=== PATIENT | female | born 1950 | race Caucasian/White ===

== ENCOUNTER → 2017-08-31 15:30 | Outpatient (CLI) | payer MEDICARE, OTHER, SELFPAY ==
[2017-08-31 16:38] LABS: Absolute Lymphocyte Count 1.55 X10^3/ul (0.83-4.51); Absolute Neutrophil Count 4.6 X10^3/uL (2.0-7.7); Basophil# 0.02 X10^3/uL; Basophil% 0.3 % (0-1); Eosinophil# 0.14 X10^3/uL; Hematocrit 41.2 % (37-47); Hemoglobin 13.6 g/dl (12.0-15.0); Lymphocyte # 1.55 X10^3/ul (4.0); Lymphocyte % 22.6 % (19-41); Mean Corpuscular Hgb 30.7 pg (27.0-32.0); Mean Platelet Vol. 10.3 fl (6.2-12.0); Monocyte# 0.56 X10^3/uL; Monocyte% 8.2 % (0-10); Neutrophil # 4.57 X10^3/uL (2.7-7.7); Neutrophil % 66.5 % (47-70); Platelet Count 213 K/mm3 (150-450); RBC Distribution Width CV 13.3 % (11.6-14.6); RBC Distribution Width SD 44.1 fl (35.1-43.9); Red Blood Count 4.43 M/mm3 (4.2-5.4); White Blood Count 6.9 K/mm3 (4.4-11.0)
[2017-08-31 16:41] LABS: POSITIVE COUNT NO; POSITIVE DIFFERENTIAL NO; POSITIVE MORPHOLOGY NO
[2017-08-31 17:06] LABS: Anion Gap 8 (5-15); BUN 20 mg/dL (7-18); BUN/Creat Ratio 21.7 RATIO (10-20); Calcium,Total 8.7 mg/dL (8.5-10.1); Chloride 107 mmol/L (98-107); Creatinine, Serum 0.92 mg/dL (0.55-1.02); EST Glomerular Filtration Rate 65 mL/min (>60); Est Glom Filt Rate - Afr Amer 78 mL/min (>60); Glucose 150 mg/dL (74-106); Potassium 4.3 mmol/L (3.5-5.1); Sodium Level 141 mmol/L (136-145)
== END ==
PROVIDERS: Family Provider Family Medicine; PCP Family Medicine; Visit Provider Internal Medicine Cardiovascular Disease
DX: I25.119 Atherosclerotic heart disease of native coronary artery with unspecified angina pectoris (principal)
CPT/HCPCS: 36415; 80048; 84484; 85025

== ENCOUNTER → 2017-09-04 10:13 | Outpatient (CLI) | payer MEDICARE, OTHER, SELFPAY ==
[2017-09-04 12:06] LABS: Absolute Lymphocyte Count 1.23 X10^3/ul (0.83-4.51); Absolute Neutrophil Count 5.2 X10^3/uL (2.0-7.7); Basophil# 0.03 X10^3/uL; Basophil% 0.4 % (0-1); Eosinophil# 0.17 X10^3/uL; Eosinophils% 2.3 % (0-5); Hematocrit 42.8 % (37-47); Hemoglobin 14.4 g/dl (12.0-15.0); Lymphocyte # 1.23 X10^3/ul (4.0); Mean Corp Hgb Conc 33.6 g/gl (32-36); Mean Corpuscular Hgb 30.9 pg (27.0-32.0); Mean Corpuscular Volume 91.8 fL (81-99); Mean Platelet Vol. 10.4 fl (6.2-12.0); Monocyte# 0.61 X10^3/uL; Monocyte% 8.4 % (0-10); Neutrophil % 71.8 % (47-70); Platelet Count 187 K/mm3 (150-450); RBC Distribution Width CV 13.5 % (11.6-14.6); RBC Distribution Width SD 44.5 fl (35.1-43.9); Red Blood Count 4.66 M/mm3 (4.2-5.4); White Blood Count 7.3 K/mm3 (4.4-11.0)
[2017-09-04 12:09] LABS: POSITIVE COUNT NO; POSITIVE DIFFERENTIAL NO; POSITIVE MORPHOLOGY NO
[2017-09-04 12:21] LABS: Hemoglobin A1c 7.1 % (4.2-6.3)
[2017-09-04 12:40] LABS: ALB/GLOB Ratio 1.3 RATIO (0.9-2.4); AST(SGOT) 24 U/L (15-37); Alanine Aminotransfer ALT/SGPT 40 U/L (13-56); Alkaline Phosphatase 59 U/L (45-117); Anion Gap 6 (5-15); BUN 16 mg/dL (7-18); BUN/Creat Ratio 19.9 RATIO (10-20); Chloride 107 mmol/L (98-107); Cholesterol 161 mg/dL (200); Creatinine, Serum 0.81 mg/dL (0.55-1.02); EST Glomerular Filtration Rate 75 mL/min (>60); Est Glom Filt Rate - Afr Amer 91 mL/min (>60); Glucose 145 mg/dL (74-106); High Density Lipoprotein 41 mg/dL; Potassium 4.5 mmol/L (3.5-5.1); Sodium Level 141 mmol/L (136-145); Thyroid Stim Hormone (TSH) 1.44 uIU/mL (0.358-3.74); Triglycerides 288 mg/dL; Very Low Density Lipoprotein 58 mg/dL (5-40)
== END ==
PROVIDERS: Family Provider Family Medicine; PCP Family Medicine; Visit Provider Family Medicine
DX: E11.9 Type 2 diabetes mellitus without complications (principal); I10 Essential (primary) hypertension; E03.9 Hypothyroidism, unspecified; E78.00 Pure hypercholesterolemia, unspecified
CPT/HCPCS: 36415; 80053; 80061; 83036; 84443; 85025

== ENCOUNTER → 2017-09-13 11:56 | Outpatient (CLI) | payer MEDICARE, OTHER, SELFPAY ==
--- NOTE | 2017-09-13 11:59 | NM_ITS ---
CLINICAL: 66-year-old diabetic female with reported history of abdominal bloating. SEMI-SOLID PHASE 99m Tc SULFUR COLLOID GASTRIC EMPTYING STUDY COMPARISON: Previous semisolid phase gastric emptying study report dated 08/16/2010 FINDINGS: The patient was administered 1.1 mCi of 99m Tc sulfur colloid mixed with oatmeal and consumed per os. Image acquisitions in the anterior-posterior projections for a total of 60 minutes. There is prompt visualization of the stomach. There is no gastroesophageal reflux identified. The T1/2 linear fit was calculated to be 43.53 minutes, (Normal: 12-56 minutes) compared to 46.7 minutes defined on the semisolid phase gastric emptying examination dated 08/16/2010. NM/Gastric Emptying Study IMPRESSION: 1. NORMAL 99m Tc sulfur colloid semi-solid phase (oatmeal) gastric emptying imaging examination. A. There is normal and preserved semi-solid phase gastric emptying compared to normal controls with maintained first order kinetics throughout all components of the examination. (Harvey et al, J Nucl Med Tech 38: 186, 2010). B. Overall applying and utilizing normal semisolid gastric emptying parameters on both the current and previous examinations, there is no significant interval change. Electronically Signed: Manuel Jacob DO at 12:13 EST Tel , Service support ,
--- NOTE | 2017-09-13 13:20 | RAD_ITS ---
STUDY: X-RAY CHEST REASON FOR EXAM: Female, 66 years old. Pain TECHNIQUE: Frontal and lateral views of the chest. COMPARISON: September 24, 2015 FINDINGS: Chronic appearing increased interstitial lung markings. There is an elevated left hemidiaphragm. There is no demonstrated pleural abnormality. Normal heart size. Normal mediastinum and minerva. Normal visualized pulmonary arteries. There is atherosclerotic calcification of the aortic arch with tortuosity. There are diffuse degenerative changes of the visualized thoracic spine. There is degenerative osteoarthritis of the bilateral shoulders. There is no demonstrated abnormality of the visualized soft tissue structures of the upper abdomen. RAD/Chest PA and Lateral IMPRESSION: There are no acute findings. Electronically Signed: Fabio Valle MD at 16:56 EST , Service support ,
== END ==
PROVIDERS: Family Provider Family Medicine; PCP Family Medicine; Visit Provider Family Medicine
DX: R10.9 Unspecified abdominal pain (principal); R14.0 Abdominal distension (gaseous); R07.89 Other chest pain
CPT/HCPCS: 71046; 78264; A9541

== ENCOUNTER → 2017-09-21 11:00 | Outpatient (CLI) | payer MEDICARE, OTHER, SELFPAY ==
--- NOTE | 2017-09-21 11:09 | RAD_ITS ---
STUDY: X-RAY - PELVIS AND RIGHT HIP REASON FOR EXAM: Female, 67 years old. Hip pain TECHNIQUE: Radiological exam, hip, unilateral, with pelvis when performed; 2 or 3 views. COMPARISON: December 04, 2013 CT pelvis FINDINGS: There is a non-specific bowel gas pattern. There are multiple calcified phleboliths. There is enthesopathy of the bilateral iliac crest similar to prior study. Normal bilateral superior and inferior pubic rami. Normal pubic symphysis. Normal bilateral ischial tuberosities. There is mild degenerative change of both hip joints. There is stable that are top in bone adjacent to the bilateral greater trochanters. There is degenerative change of the lumbar spine. RAD/Hip 2-3 Views with Pelvis IMPRESSION: Degenerative change of bilateral hip joints with right greater than left, visualized heterotopic bone or prior avulsion injuries adjacent to the greater trochanter on the right side. Electronically Signed: Tg Flynn MD at 11:41 EST Tel , Service support ,
== END ==
PROVIDERS: Family Provider Family Medicine; PCP Family Medicine; Visit Provider Nurse Practitioner Family
DX: M16.0 Bilateral primary osteoarthritis of hip (principal)
CPT/HCPCS: 73502

== ENCOUNTER → 2017-11-13 14:50 | Outpatient (CLI) | payer MEDICARE, OTHER, SELFPAY | PROVIDERS: Family Provider Family Medicine; PCP Family Medicine; Visit Provider Urology | DX: N39.0 Urinary tract infection, site not specified (principal) | CPT/HCPCS: 87086; 87088; 87186 ==

== ENCOUNTER → 2017-12-03 07:55 | Outpatient (CLI) | payer MEDICARE, OTHER, SELFPAY ==
[2017-12-03 10:21] LABS: AST(SGOT) 24 U/L (15-37); Alanine Aminotransfer ALT/SGPT 44 U/L (13-56); Albumin, Serum 4.1 g/dL (3.2-5.0); Alkaline Phosphatase 62 U/L (45-117); Bilirubin, Direct 0.15 mg/dL (0.00-0.30); Cholesterol 133 mg/dL (200); Globulin 2.9 g/dL (2.2-4.2); High Density Lipoprotein 52 mg/dL; Triglycerides 200 mg/dL; Very Low Density Lipoprotein 40 mg/dL (5-40)
== END ==
PROVIDERS: Family Provider Family Medicine; PCP Family Medicine; Visit Provider Physician Assistant Medical
DX: E78.5 Hyperlipidemia, unspecified (principal); Z79.899 Other long term (current) drug therapy
CPT/HCPCS: 36415; 80061; 80076

== ENCOUNTER → 2018-01-21 14:25 | Outpatient (CLI) | payer MEDICARE, OTHER, SELFPAY | PROVIDERS: Family Provider Family Medicine; PCP Family Medicine; Visit Provider Nurse Practitioner Adult Health | DX: N39.0 Urinary tract infection, site not specified (principal) | CPT/HCPCS: 87077; 87086; 87088; 87186 ==

== ENCOUNTER → 2018-02-04 16:53 | Outpatient (CLI) | payer MEDICARE, OTHER, SELFPAY | PROVIDERS: Family Provider Family Medicine; PCP Family Medicine; Visit Provider Urology | DX: N39.0 Urinary tract infection, site not specified (principal) | CPT/HCPCS: 87086 ==

== ENCOUNTER → 2018-03-28 16:06 | Outpatient (CLI) | payer MEDICARE, OTHER, SELFPAY | PROVIDERS: Family Provider Family Medicine; PCP Family Medicine; Visit Provider Family Medicine | DX: G57.62 Lesion of plantar nerve, left lower limb (principal); M19.072 Primary osteoarthritis, left ankle and foot | CPT/HCPCS: 73630 ==

== ENCOUNTER → 2018-04-22 11:46 | Outpatient (CLI) | payer MEDICARE, OTHER, SELFPAY ==
--- NOTE | 2018-04-22 11:48 | RAD_ITS ---
STUDY: X-RAY - RIGHT HAND REASON FOR EXAM: Female, 67 years old. Pain and swelling of the middle finger for 5 days. TECHNIQUE: 3 view(s) of the hand. COMPARISON: None. FINDINGS: Normal radiocarpal articulation. Normal distal radioulnar joint. Normal visualized carpal bones. Normal carpal articulations Normal carpometacarpal articulation of the thumb. Normal second through fifth carpometacarpal joints. Normal metacarpi. There is degenerative arthrosis of the first metacarpophalangeal (MCP) joint. Normal interphalangeal joint of the thumb. Normal proximal and distal phalanges of the thumb. Normal metacarpophalangeal joints of the second through fifth fingers. Normal proximal interphalangeal joints of the second through fifth fingers. There is marked arthrosis of the distal interphalangeal joints most marked at the second and third digits demonstrate bony productivity. Normal phalanges of the second through fifth fingers. There is periarticular soft tissue swelling particularly at the tips of the second and third digits. RAD/Hand Min 3 Views IMPRESSION: Arthritic changes of the right hand. There is no fracture or dislocation. Electronically Signed: Scottie Reyes DO at 23:07 EDT Tel [phone], Service support ,
== END ==
PROVIDERS: Family Provider Family Medicine; PCP Family Medicine; Visit Provider Physician Assistant
DX: M18.9 Osteoarthritis of first carpometacarpal joint, unspecified (principal)
CPT/HCPCS: 73130

== ENCOUNTER → 2018-05-06 17:35 | Outpatient (CLI) | payer MEDICARE, OTHER, SELFPAY | PROVIDERS: Family Provider Family Medicine; PCP Family Medicine; Referring Provider Nurse Practitioner Adult Health; Visit Provider Nurse Practitioner Adult Health | DX: R82.998 Other abnormal findings in urine (principal) | CPT/HCPCS: 87077; 87086; 87088; 87186 ==

== ENCOUNTER → 2018-06-12 09:47 | Outpatient (CLI) | payer MEDICARE, OTHER, SELFPAY ==
[2018-06-12 12:35] LABS: AST(SGOT) 29 U/L (15-37); Alanine Aminotransfer ALT/SGPT 51 U/L (13-56); Alkaline Phosphatase 63 U/L (45-117); Bilirubin, Direct 0.12 mg/dL (0.00-0.30); Cholesterol 134 mg/dL (200); Globulin 3.1 g/dL (2.2-4.2); High Density Lipoprotein 40 mg/dL; Protein, Total 7.1 g/dL (6.4-8.2); Triglycerides 228 mg/dL; Very Low Density Lipoprotein 46 mg/dL (5-40)
== END ==
PROVIDERS: Physician Assistant Medical; Family Provider Family Medicine; PCP Family Medicine; Referring Provider Internal Medicine Cardiovascular Disease; Visit Provider Internal Medicine Cardiovascular Disease
DX: E78.5 Hyperlipidemia, unspecified (principal)
CPT/HCPCS: 36415; 80061; 80076

== ENCOUNTER → 2018-07-02 10:15 | Outpatient (CLI) | payer MEDICARE, OTHER, SELFPAY ==
[2018-04-22 11:50] VITALS: BMI 32.9
== END ==
PROVIDERS: Family Provider Family Medicine; PCP Family Medicine; Referring Provider Nurse Practitioner Adult Health; Visit Provider Nurse Practitioner Adult Health
DX: N30.00 Acute cystitis without hematuria (principal)
CPT/HCPCS: 87077; 87086; 87088; 87186

== ENCOUNTER → 2018-09-05 15:45 | Outpatient (CLI) | payer MEDICARE, OTHER, SELFPAY ==
[2018-09-05 17:38] LABS: Absolute Lymphocyte Count 1.64 X10^3/ul (0.83-4.51); Absolute Neutrophil Count 4.6 X10^3/uL (2.0-7.7); Basophil# 0.04 X10^3/uL; Basophil% 0.6 % (0-1); Eosinophil# 0.13 X10^3/uL; Eosinophils% 1.9 % (0-5); Hematocrit 41.6 % (37-47); Hemoglobin 13.4 g/dl (12.0-15.0); Lymphocyte # 1.64 X10^3/ul (4.0); Lymphocyte % 23.5 % (19-41); Mean Corp Hgb Conc 32.2 g/gl (32-36); Mean Corpuscular Hgb 29.5 pg (27.0-32.0); Mean Corpuscular Volume 91.6 fL (81-99); Mean Platelet Vol. 10.6 fl (6.2-12.0); Monocyte# 0.56 X10^3/uL; Neutrophil # 4.59 X10^3/uL (2.7-7.7); Neutrophil % 65.7 % (47-70); Platelet Count 242 K/mm3 (150-450); RBC Distribution Width CV 13.4 % (11.6-14.6); RBC Distribution Width SD 44.4 fl (35.1-43.9); Red Blood Count 4.54 M/mm3 (4.2-5.4)
[2018-09-05 17:43] LABS: POSITIVE COUNT NO; POSITIVE DIFFERENTIAL NO; POSITIVE MORPHOLOGY NO
[2018-09-05 18:10] LABS: ALB/GLOB Ratio 1.2 RATIO (0.9-2.4); AST(SGOT) 29 U/L (15-37); Alanine Aminotransfer ALT/SGPT 45 U/L (13-56); Albumin, Serum 4.1 g/dL (3.2-5.0); Alkaline Phosphatase 69 U/L (45-117); Anion Gap 9 (5-15); BUN 22 mg/dL (7-18); BUN/Creat Ratio 26.1 RATIO (10-20); Calcium,Total 9.2 mg/dL (8.5-10.1); Chloride 104 mmol/L (98-107); Creatinine, Serum 0.84 mg/dL (0.55-1.02); EST Glomerular Filtration Rate 71 mL/min (>60); Est Glom Filt Rate - Afr Amer 86 mL/min (>60); Globulin 3.4 g/dL (2.2-4.2); Glucose 142 mg/dL (74-106); Protein, Total 7.5 g/dL (6.4-8.2); Sodium Level 140 mmol/L (136-145); Thyroid Stim Hormone (TSH) 1.66 uIU/mL (0.358-3.74)
[2018-09-05 20:59] LABS: Hemoglobin A1c 7.3 % (4.2-6.3)
== END ==
PROVIDERS: Family Provider Family Medicine; PCP Family Medicine; Visit Provider Family Medicine
DX: E78.00 Pure hypercholesterolemia, unspecified (principal); E03.9 Hypothyroidism, unspecified; E11.9 Type 2 diabetes mellitus without complications; I10 Essential (primary) hypertension
CPT/HCPCS: 36415; 80053; 83036; 84443; 85025

== ENCOUNTER → 2018-09-25 06:11 | Outpatient (CLI) | payer MEDICARE, OTHER, SELFPAY ==
[2018-09-16 13:56] VITALS: BMI 32.7
[2018-09-18 13:25] VITALS: BMI 32.7
--- NOTE | 2018-09-25 08:59 | STRESSREP ---
Stress Test Report Pharmacologic myocardial perfusion stress test. 68-year-old lady with a history of chest pain. Medications: Metoprolol rosuvastatin amlodipine metformin. Stress protocol resting EKG demonstrates normal sinus rhythm with a rate of 77 bpm normal intervals are noted resting blood pressure is 122/78 mmHg. 0.4 mg of regadenoson was infused per usual protocol followed by rapid intravenous saline flush injection continuous EKG monitoring was performed. The maximum heart rate attained was 121 bpm which was 79% maximum predicted heart rate the maximum workload was 1 metabolic equivalent. At rest there were no ST or T wave changes noted suggest abnormal flow reserve at peak infusion nonspecific ST-T wave changes were noted with normally the criteria for abnormal flow reserve. The resting blood pressure 122/78 with a final blood pressure 134/70 mmHg. Myocardial perfusion protocol. 11.6 mCi of technetium 99m sestamibi was injected at rest. 0.4 mg of regadenoson was infused per usual protocol. At peak infusion 32.9 mCi of technetium 99m sestamibi was injected stress images were obtained stress and rest images were reconstructed and compared in the short axis vertical long and horizontal long axis. Gated images were also obtained Perfusion SPECT analysis: Review of the stress images demonstrate normal uptake of tracer noted in all areas of the myocardium. There were no obvious areas of reversibility to suggest ischemia. No previous infarct was noted. Gated SPECT analysis: The gated ejection fraction is noted to be 81%. Conclusion: Normal pharmacologic myocardial perfusion stress test. Preserved ejection fraction.
== END ==
PROVIDERS: Family Provider Family Medicine; PCP Family Medicine; Referring Provider Nurse Practitioner Family; Visit Provider Nurse Practitioner Family
DX: I25.10 Atherosclerotic heart disease of native coronary artery without angina pectoris (principal); R07.9 Chest pain, unspecified; R53.83 Other fatigue; Z95.5 Presence of coronary angioplasty implant and graft
CPT/HCPCS: 78452; 93017; A9500; A4216; J2785

== ENCOUNTER → 2018-10-22 08:44 | Outpatient (CLI) | payer MEDICARE, OTHER, SELFPAY ==
[2018-09-18 13:25] VITALS: BMI 32.7
--- NOTE | 2018-10-22 08:45 | BI_ITS ---
MAMMOGRAPHY - BILATERAL SCREENING REASON FOR EXAM: Female, 68 years old. Routine annual screening examination. PERTINENT HISTORY: Non-contributory. TECHNIQUE: Digital bilateral breast elan (3D mammographic acquisition) in the CC and MLO projections. 2-D mediolateral oblique (MLO) and craniocaudad (CC) views of both breasts were obtained. CAD: Full Field Digital Mammography with Computer Added Detection was performed. COMPARISON: Comparison is made with prior study dated July 12, 2015. FINDINGS: Breast Composition: The breasts are heterogeneously dense, which may obscure small masses. There are no dominant masses or suspicious calcifications. Stable benign-appearing bilateral axillary lymph nodes. No other significant abnormalities are identified. There has been no significant change since the prior study. BI/SCREEN MAMM (CAD) W/ELAN BILAT IMPRESSION: Stable bilateral screening mammogram. Yearly follow-up mammogram recommended. (A) ASSESSMENT CATEGORY: BIRADS Category 2: Benign. A letter regarding these results will be sent to the patient by the facility within 30 days. Approximately 10% of breast cancers are not detected by mammography. A normal mammogram should not delay biopsy of a clinically suspicious abnormality. [id number] Electronically Signed: Zachary Taylor, at 10:40 EDT , Service support ,
== END ==
PROVIDERS: Family Provider Family Medicine; PCP Family Medicine; Referring Provider Nurse Practitioner Women's Health; Visit Provider Nurse Practitioner Women's Health
DX: Z12.31 Encounter for screening mammogram for malignant neoplasm of breast (principal); G47.10 Hypersomnia, unspecified
CPT/HCPCS: 77063; 77067; 95810

== ENCOUNTER → 2018-12-10 11:48 | Outpatient (CLI) | payer MEDICARE, OTHER, SELFPAY ==
[2018-09-18 13:25] VITALS: BMI 32.7
--- NOTE | 2018-12-10 11:54 | RAD_ITS ---
STUDY: X-RAY - PELVIS AND RIGHT HIP REASON FOR EXAM: Female, 68 years old. TECHNIQUE: views of the pelvis and hip. COMPARISON: None. FINDINGS: There is a non-specific bowel gas pattern. Normal visualized soft tissue structures. Normal bilateral iliac wings, sacroiliac joints and visualized sacrum. Normal bilateral superior and inferior pubic rami. Normal pubic symphysis. Normal bilateral ischial tuberosities. Degenerative change of the right side at the greater trochanter. There is no visualized fracture. There is minimal narrowing of the joints. There is minimal acetabular spurring there are phleboliths in the pelvis. There is enthesopathy at the bilateral iliac crests. RAD/HIP, UNI W/ Pelvis 2-3 Views IMPRESSION: Degenerative change. No visualized acute fracture. Electronically Signed: Tg Flynn MD at 20:01 EDT Tel , Service support ,
== END ==
PROVIDERS: Family Provider Family Medicine; PCP Family Medicine; Referring Provider Pediatrics; Visit Provider Pediatrics
DX: M25.551 Pain in right hip (principal); M81.0 Age-related osteoporosis without current pathological fracture; R29.6 Repeated falls
CPT/HCPCS: 73502

== ENCOUNTER → 2019-01-06 10:09 | Outpatient (CLI) | payer MEDICARE, OTHER, SELFPAY ==
[2018-09-18 13:25] VITALS: BMI 32.7
--- NOTE | 2019-01-06 10:13 | RAD_ITS ---
X-ray Chest PA and lateral Indication: Pain Comparison: Findings: There is left base atelectasis with mild volume loss. The pleural spaces are clear. The cardiomediastinal silhouette is normal. Osseous structures are unremarkable. RAD/Chest PA and Lateral IMPRESSION: Left base atelectasis with mild volume loss. No consolidation. Electronically Signed: Robbi Gill, at 17:11 EDT Tel , Service support ,
== END ==
PROVIDERS: Family Provider Family Medicine; PCP Family Medicine; Referring Provider Family Medicine; Visit Provider Family Medicine
DX: R07.89 Other chest pain (principal)
CPT/HCPCS: 71046

== ENCOUNTER → 2019-01-08 10:16 | Outpatient (CLI) | payer MEDICARE, OTHER, SELFPAY ==
[2018-09-18 13:25] VITALS: BMI 32.7
[2019-01-08 11:11] LABS: AST(SGOT) 17 U/L (15-37); Alanine Aminotransfer ALT/SGPT 33 U/L (13-56); Albumin, Serum 3.8 g/dL (3.2-5.0); Alkaline Phosphatase 61 U/L (45-117); Bilirubin, Direct 0.11 mg/dL (0.00-0.30); Cholesterol 165 mg/dL (200); Globulin 3.2 g/dL (2.2-4.2); High Density Lipoprotein 52 mg/dL; Triglycerides 235 mg/dL; Very Low Density Lipoprotein 47 mg/dL (5-40)
== END ==
PROVIDERS: Family Provider Family Medicine; PCP Family Medicine; Referring Provider Physician Assistant Medical; Visit Provider Physician Assistant Medical
DX: E78.5 Hyperlipidemia, unspecified (principal)
CPT/HCPCS: 36415; 80061; 80076

== ENCOUNTER → 2019-01-17 07:55 | Outpatient (CLI) | payer MEDICARE, OTHER, SELFPAY ==
[2018-09-18 13:25] VITALS: BMI 32.7
--- NOTE | 2019-01-17 07:58 | CT_ITS ---
HISTORY: Dyspnea, hypertension COMPARISON: Chest x-ray 01/06/2019 TECHNIQUE: Helical CT axial images of the thorax without IV contrast. Multiplanar reconstruction. A radiation dose optimization technique was used for this scan. # of images incl. paperwork: [id number] FINDINGS: LUNGS: Mild linear scarring right middle lobe, lingula and bilateral lower lobes. Otherwise clear lungs. No pulmonary masses or suspicious nodules. MEDIASTINUM: No abnormally enlarged mediastinal or hilar lymph nodes. PLEURA: No pleural effusion. No pneumothorax. CARDIAC: Upper limits of normal heart size. Coronary artery stents. No pericardial effusion. VASCULAR: Thoracic aorta is normal in caliber without aneurysm. The pulmonary vasculature demonstrates no significant dilatation. CHEST WALL: No acute rib fracture. Chest wall is intact. No abnormal axillary lymphadenopathy. BONES: No suspicious osseous lytic or blastic lesions seen. Mild thoracic spine degenerative changes. UPPER ABDOMEN: The visualized upper abdomen demonstrates no acute abnormality. CT/Chest without Contrast IMPRESSION: 1. No acute cardiopulmonary disease or evidence for malignancy. Individualized dose optimization techniques were used for this CT. at 2010 Reported and signed by: Bib Meadows MD Electronically Signed: Bib Meadows MD at 20:09 EDT Tel , Service support ,
== END ==
PROVIDERS: Family Provider Family Medicine; PCP Family Medicine; Referring Provider Family Medicine; Visit Provider Family Medicine
DX: J98.11 Atelectasis (principal); R06.00 Dyspnea, unspecified; R07.81 Pleurodynia
CPT/HCPCS: 71250

== ENCOUNTER → 2019-04-02 11:53 | Outpatient (CLI) | payer MEDICARE, OTHER, SELFPAY ==
[2018-09-18 13:25] VITALS: BMI 32.7
--- NOTE | 2019-04-02 11:56 | NM_ITS ---
CLINICAL: 68-year-old female with reported history of abdominal bloating and loose stools. RADIONUCLIDE HEPATOBILIARY SCINTIGRAPHY COMPARISON: None available FINDINGS: Following the intravenous administration of 5.4 mCi of 99m Tc Mebrofenin, hepatobiliary images reveal: 1. Relatively prompt and homogeneous radiopharmaceutical concentration is noted by a normal sized liver. No parenchymal defects are identified. 2. Gallbladder activity is identified at 15 minutes post radiopharmaceutical administration. 3. Small intestinal tract is observed at 30 minutes following tracer injection. 4. Washout of the radiopharmaceutical by the hepatic parenchyma appears qualitatively normal. Cholecystokinin (0.02 ug/kg) was administered intravenously over a 30-minute period. The post CCK gallbladder ejection fraction calculated at 20 minutes following Cholecystokinin administration was noted to be 96.0 % (normal greater than 35%). During 30 minutes of post CCK imaging, there is no scintigraphic evidence of reflux of the radiotracer into the common hepatic duct or refilling of the gallbladder. There is scintigraphic evidence of post CCK duodenal gastric reflux. NM/Hepatobilliary Img w/Pharm Int IMPRESSION: 1. A gallbladder ejection fraction calculated to be greater than 35% following the administration of Cholecystokinin makes the probability of functional hepatobiliary disease (gallbladder and/or sphincter of Oddi dyskinesia) and/or organic hepatobiliary disease (chronic acalculous cholecystitis and/or cystic duct syndrome) to be low. (Enrico Forde et al, Journal of Nuclear Medicine 32:1695, 1990). 2. There is scintigraphic evidence of post CCK duodenal-gastric reflux as described above. (Liang et al, Nucl Med Pamela Emma Press pg. 35, 1980). Electronically Signed: Manuel Jacob DO at 22:58 EDT Tel , Service support ,
== END ==
PROVIDERS: Family Provider Family Medicine; PCP Family Medicine; Referring Provider Family Medicine; Visit Provider Family Medicine
DX: R10.11 Right upper quadrant pain (principal); R19.7 Diarrhea, unspecified
CPT/HCPCS: 78227; A9537; J2805

== ENCOUNTER → 2019-04-21 08:45 | Outpatient (CLI) | payer MEDICARE, OTHER, SELFPAY ==
[2018-09-18 13:25] VITALS: BMI 32.7
[2019-04-19 08:51] VITALS: BMI 33.8
--- NOTE | 2019-04-21 08:47 | NM_ITS ---
CLINICAL: 68-year-old female with history of apparent right hip pain. LIMITED 99m Tc MDP THREE PHASE BONE SCINTIGRAPHY COMPARISON: Plain film radiograph report right hip 12/10/2018 FINDINGS: Following the intravenous administration of 26.7 mCi of 99m Tc MDP, limited three-phase bone acquisitions of the pelvis reveal: 1. The flow and immediate static blood pool acquisitions demonstrate relatively symmetric arterial and venous phase distribution of the radiopharmaceutical to the bilateral hip articulations. 2. Delayed images depict heterogeneous increased radiopharmaceutical uptake noted in the right hemipelvis localized to the right posterior iliac crest and periosseous soft tissues. 3. Enhanced uptake is confined in the fifth lumbar vertebra posteriorly on the left, right posterior sacrum. 4. The remaining limited skeletal structures are scintigraphically unremarkable. NM/Bone Scan Three Phase IMPRESSION: 1. The increase in radiopharmaceutical concentration identified in the right posterior hemipelvis in the region of the right posterior iliac crest and adjacent periosteal soft tissue is most consistent with heterotopic bone formation, posttraumatic dystrophic calcification. 2. Degenerative arthritis appears expressed in the fifth lumbar vertebra and right posterior sacrum. Electronically Signed: Manuel Jacob DO at 22:50 EDT Tel , Service support ,
== END ==
PROVIDERS: Family Provider Family Medicine; PCP Family Medicine; Referring Provider Orthopaedic Surgery; Visit Provider Orthopaedic Surgery
DX: R22.41 Localized swelling, mass and lump, right lower limb (principal); M79.89 Other specified soft tissue disorders; M16.11 Unilateral primary osteoarthritis, right hip
CPT/HCPCS: 78315

== ENCOUNTER 2019-04-24 05:17 | Day surgery (SDC) | payer MEDICARE, OTHER, SELFPAY ==
[2019-04-19 08:51] VITALS: BMI 33.8
[2019-04-24] VITALS (10 sets, daily range): BP systolic 81–159; BP diastolic 59–118; PULSE 68–73; RESP 14–16; TEMP 36.2–37.2; O2SAT 94–100; BMI 33.9
--- NOTE | 2019-04-24 05:59 | PCM.HP.BLA ---
Problem List (1) Diarrhea Status: Acute Qualifiers: (2) Abdominal pain Status: Acute Qualifiers: History and Physical Date of Admission: 04/24/19 Intake Visit Reasons: Diarrhea & Abdominal Pain Chief Complaint: Follow up visit Allergies acetaminophen [From Vicodin] Allergy (Verified 04/19/19 08:52) Itching hydrocodone bitartrate [From Vicodin] Allergy (Verified 04/19/19 08:52) Itching Iodinated Contrast Media Allergy (Verified 04/19/19 08:52) Anaphylaxis codeine Adverse Reaction (Severe, Verified 04/19/19 08:52) Unknown esomeprazole [From Nexium] Adverse Reaction (Severe, Verified 04/19/19 08:52) Causes elevated LFTs Sulfa (Sulfonamide Antibiotics) Adverse Reaction (Severe, Verified 04/19/19 08:52) Causes elevated LFTs levofloxacin [From Levaquin] Adverse Reaction (Verified 04/19/19 08:52) Nausea/Vom/Diarrhea Niacin Preparations Adverse Reaction (Verified 04/19/19 08:52) Other Medications Calcium (Elemental) [Caltrate-600] 1,200 mg PO DAILY@0800 05/19/14 [History Confirmed 04/19/19] Levothyroxine [Synthroid] 100 mcg PO DAILY 05/19/14 [History Confirmed 04/19/19] aspirin 81 mg tablet,delayed release 81 mg PO QDAY 08/23/17 [History Confirmed 04/19/19] nitroglycerin 0.4 mg sublingual tablet 0.4 mg SUBLINGUAL Q5-15M PRN #25 tab 08/31/17 [Rx Confirmed 04/19/19] metformin ER 500 mg tablet,extended release 24 hr 500 mg PO BID tab 09/10/17 [History Confirmed 04/19/19] ibuprofen 100 mg tablet 200 mg PO TID-QID PRN 04/22/18 [History Confirmed 04/19/19] metoprolol tartrate 100 mg tablet 100 mg PO BID #180 tab 05/06/18 [Rx Confirmed 04/19/19] rosuvastatin 20 mg tablet 20 mg PO QHS #90 tab 08/16/18 [Rx Confirmed 04/19/19] glipizide ER 2.5 mg tablet, extended release 24 hr 2.5 mg PO DAILY 09/16/18 [History Confirmed 04/19/19] nabumetone 750 mg tablet 750 mg PO BID 09/16/18 [History Confirmed 04/19/19] omeprazole 10 mg capsule,delayed release 10 mg PO DAILY PRN 09/16/18 [History Confirmed 04/19/19] estradiol 0.01% (0.1 mg/gram) vaginal cream 1 g VAGINAL QWEEK 09/18/18 [History Confirmed 04/19/19] fluticasone propionate 50 mcg/actuation nasal spray,suspension 2 spray INTRANASAL DAILY 09/18/18 [History Confirmed 04/19/19] methenamine hippurate 1 gram tablet 1 g PO BID 09/18/18 [History Confirmed 04/19/19] omega-3 fatty acids 1,000 mg capsule 1,000 mg PO DAILY 09/18/18 [History Confirmed 04/19/19] amlodipine 5 mg tablet 5 mg PO DAILY #30 tab 11/26/18 [Rx Confirmed 04/19/19] [facility] Medical History Abnormal biliary HIDA scan (Acute) Abdominal pain (Acute) Diarrhea (Acute) Hypothyroidism (Chronic) Syncope and collapse (Chronic) Premature ventricular contractions (Chronic) 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) Hypertension (Chronic) Hyperlipidemia (Chronic) Fatigue (Chronic) Dizziness (Chronic) Diabetes mellitus (Chronic) Dyspnea, unspecified (Chronic) Cough (Chronic) Chest pain (Chronic) Atherosclerosis of coronary artery of [place] heart without angina pectoris (Chronic) Arthritis (Acute) Back pain (Acute) Surgical History History of coronary artery stent placement (Chronic) History of bilateral cataract extraction (Resolved) History of carpal tunnel release of both wrists (Resolved) History of foot surgery (Resolved) History of knee replacement (Resolved) back injection (Resolved) Family History Mother Diabetes Heart disease Social History (Updated 04/19/19 @ 09:49 by Reece Walter MD) Smoking Status: Never smoker alcohol intake: current alcohol intake frequency: holidays/special occasions only Alcohol type: wine substance use type: does not use caffeine: Yes Type: coffee Number of servings: 1 what type of physical activity do you participate in: none seatbelt use: always do you feel safe at home: Yes additional social history: -Terry Patient is retired HPI HPI HPI: KORIN HARPER, is a 68 F who presents to the office today for HPI HPI Surgical H&P: Yes HPI: KORIN HARPER, is a 68 F who presents to the office today for for surgical consultation regarding intermittent bouts of severe diarrhea. She has not noticed any bright red blood per rectum or melena. The patient is referred by Dr. Galina Tavarez and a written copy of my surgical consult recommendations will be returned to her. On April 02, 2019 the patient had a hepatobiliary scan. Ejection fraction was 96%. There was some evidence of duodenal gastric reflux. It is of note that previously January 17, [address] the patient had chest CT scan. That was because of an abnormal chest x-ray. There were no acute findings on the CT. Previously September 13 she had nuclear medicine gastric emptying study. She was felt to have a normal study. She states that was done because of bloating and gas pain. Her current problems with explosive diarrhea occurs every 2 to 3 weeks and last for about 2 days. That is been going on for several months. She denies fever or chills or sweats. No nausea or vomiting. Has not noticed any blood. Family history is negative for colon cancer or colon polyps. She thinks her most recent colonoscopy was 6 years ago. She has not had an upper endoscopy. She has not yet submitted stool for analysis. She states that throughout all of this she has had some slight weight gain. She states that she has not had any acute medication change during this process. On her own she has tried some [id number] Imodium with some relief. In addition she is complaining of a nondescript right flank right mid abdominal pain. She is having that now. That is more of a constant event. She feels when she lies to her left side that she is a dragging pulling sensation on the right ear [facility] [address] [place] [address] Hepatobilliary Img w/Pharm Int MR#: [id number] Name: KORIN HARPER [facility] #:[id number] : 1950 68 From: Manuel Jacob DO PCP:Galina Tavarez DO Status:REG CLI Study:Hepatobilliary Img w/Pharm Int Date of Exam:04/02/19 Exam#[id number] Ordering Dr: Galina Tavarez DO CLINICAL: 68-year-old female with reported history of abdominal bloating and loose stools. RADIONUCLIDE HEPATOBILIARY SCINTIGRAPHY COMPARISON: None available FINDINGS: Following the intravenous administration of 5.4 mCi of 99m Tc Mebrofenin, hepatobiliary images reveal: 1. Relatively prompt and homogeneous radiopharmaceutical concentration is noted by a normal sized liver. No parenchymal defects are identified. 2. Gallbladder activity is identified at 15 minutes post radiopharmaceutical administration. 3. Small intestinal tract is observed at 30 minutes following tracer injection. 4. Washout of the radiopharmaceutical by the hepatic parenchyma appears qualitatively normal. Cholecystokinin (0.02 ug/kg) was administered intravenously over a 30-minute period. The post CCK gallbladder ejection fraction calculated at 20 minutes following Cholecystokinin administration was noted to be 96.0 % (normal greater than 35%). During 30 minutes of post CCK imaging, there is no scintigraphic evidence of reflux of the radiotracer into the common hepatic duct or refilling of the gallbladder. There is scintigraphic evidence of post CCK duodenal gastric reflux. NM/Hepatobilliary Img w/Pharm Int IMPRESSION: 1. A gallbladder ejection fraction calculated to be greater than 35% following the administration of Cholecystokinin makes the probability of functional hepatobiliary disease (gallbladder and/or sphincter of Oddi dyskinesia) and/or organic hepatobiliary disease (chronic acalculous cholecystitis and/or cystic duct syndrome) to be low. (Enrico Forde et al, Journal of Nuclear Medicine 32:1695, 1990). 2. There is scintigraphic evidence of post CCK duodenal-gastric reflux as described above. (Liang et al, Nucl Med Pamela Emma Press pg. 35, 1980). Electronically Signed: Manuel Jacob DO at 22:58 EDT Tel , Service support , Exam Const General: cooperative, healthy appearing, comfortable, no acute distress Nutritional Appearance: overweight Orientation: alert, awake, oriented x3 HENMT Head: normal to inspection Chest Chest palpation & inspection: normal inspection of the chest Other: No CVA percussion tenderness Resp Effort & Inspection: normal respiratory effort Cardio Rate: regular rate Rhythm: regular rhythm GI Palpation: soft, no hepatosplenomegaly Auscultation: normal bowel sounds Musc Cervical Spine: normal cervical lordosis Neuro Cognition: normal cognition Extrem General: no calf tenderness bilaterally Psych Affect: normal affect Assessment & Plan Problems 1. Diarrhea, unspecified type R19.7 2. Right upper quadrant abdominal pain R10.11 3. Abnormal biliary HIDA scan R94.8 Plan Very pleasant 68-year-old female with cyclical episodes of severe explosive diarrhea. Etiology not clear. On a hepatobiliary scan she has hyperactive gallbladder. It was also noted gastroduodenal reflux. She has had a previous remote gastric emptying study which was normal. The etiology to her explosive diarrhea and right mid abdominal pain is unclear. I recommend stool for analysis I recommend a combined esophagogastroduodenoscopy with biopsy and colonoscopy with possible biopsy or polypectomy as indicated. Careful inspection for possible H. pylori or even eosinophilic esophagitis and especially microcytic colitis will be pursued. She has had an opportunity to ask and have questions answered. We will schedule and expedite her care. Regarding the patient's abnormal hepatobiliary scan with hyperactivity. I have not personally had great success and symptom relief performing a cholecystectomy for this diagnosis. We will continue with her investigation should try to assist with a diagnosis. I very much appreciate the kind opportunity of assisting with her surgical care. CC: Dr. Galina Walter M.D., F.A.C.S. Orders Orders: Colonoscopy Today EGD Today CDIFF (Molecular) Today R19.7 Culture, Miscellaneous Today R19.7 ENTERIC PATHOGEN PANEL STOOL Today R19.7 Coding Level of Care Code 64715 Diagnoses Diarrhea, unspecified type R19.7 ??Diarrhea type: unspecified type Right upper quadrant abdominal pain R10.11 ??Abdominal location: right upper quadrant Abnormal biliary HIDA scan R94.8 04/19/19 0949 <Electronically signed by Reece Walter MD> Date Reece Teran Signature: Date (if applicable) CC: Galina Tavarez ~ I have re-examined the patient. There are no clinical changes since date of exam.
[2019-04-24] MEDS: Lactated Ringers 1,000 ML 100 ML IV (06:13)
--- NOTE | 2019-04-24 06:30 | IMM_PTH ---
PATIENT: KORIN HARPER LOC: EN U#:[id number] AGE/SX: 68/F ROOM: RE04/24/[address]: Dr. Reece Walter MD : 1950 BED: DIS: 04/24/2019 SPEC #: [id number] RECD: 04/24/19 12:31 STATUS: SAMINA REJoann #: [id number] DOUGLAS: 04/24/19 06:[address]: Reece Walter DEPT: IMMUNOHISTOCHEMISTRY RECD BY: Mere Roberson ENTERED: 04/24/19 12:31 SP TYPE: IMMUNO OTHR DR: Dr. Galina Tavarez DO Tissues: B - Stomach, NOS C - Esophageal mucous membrane Procedures: H Pylori (initial) P53 (initial) PHYSICIAN & INSTITUTION [place] [id number] SPECIMEN INFORMATION: Tissue Source: B - Antral biopsy, C - Distal esophagus biopsy Clinical Info: Abdominal pain, diarrhea Specimen Number: [id number] B & C CPT code: 81556 x2 METHODOLOGY: Deparaffinized sections of prefer/formalin-fixed tissue or PAP/DQ stained slides are incubated with monoclonal/polyclonal antibodies/oligonucleotide probes. Localization is made via biotin free immunoperoxidase method. Appropriate controls are performed and reacted as expected. Results on target cell population are indicated in the following table: RESULTS: ANTIBODY / CLONE RESULT Block B H Pylori (polyclonal) negative Block C P53 (DO-7) negative These tests were developed and their performance characteristics determined by [facility]. They may not have been cleared or approved by the U.S. Food and Drug Administration. The FDA has determined that such clearance or approval is not necessary. INTERPRETATION: B. Antral biopsy: Negative for Helicobacter pylori organisms. C. Distal esophagus biopsy: No evidence of dysplasia. AM:kalli 04/28/19
--- NOTE | 2019-04-24 06:30 | EGD_PTH ---
PATIENT: KORIN HARPER LOC: EN U#:[id number] AGE/SX: 68/F ROOM: RE04/24/[address]: Dr. Reece Walter MD : 1950 BED: DIS: 04/24/2019 SPEC #: [id number] RECD: 04/24/19 09:18 STATUS: SAMINA CHILO #: [id number] DOUGLAS: 04/24/19 06:[address]: Reece Walter DEPT: SURGICAL PATHOLOGY RECD BY: Brian Gold ENTERED: 04/24/19 09:39 SP TYPE: EGD BIOPSY OTHR DR: Dr. Galina Tavarez DO Tissues: A - Duodenum, NOS B - Gastric mucous membrane C - Esophageal mucous membrane D - Esophageal mucous membrane E - COLON BIOPSY F - Ascending colon Procedures: Special Stain Group II Surgery Specimen Level IV Alcian Blue/PAS (control) HEADER OPERATION: Colonoscopy, EGD (MOD) PRE-OP DIAGNOSIS: Abdominal pain, diarrhea TISSUE SUBMITTED: A - Duodenum biopsy, B - Antral biopsy for H. pylori and histo, C - Distal esophagus biopsy, D - Mid esophagus biopsy, E - Random colon biopsy, F - Ascending colon polyp biopsy MICROSCOPIC DIAGNOSIS A. Duodenum, biopsy: No pathologic diagnosis. B. Gastric antrum, biopsy: Mild chronic gastritis. See comment. C. Distal esophagus, biopsy: Gastroesophageal junctional mucosa with mild chronic inflammation. 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 Focally changes of reflux esophagitis. No evidence of dysplasia. See comment. D. Mid esophagus, biopsy: Fragment of benign squamous mucosa. E. Colon, random biopsy: No pathologic change. F. Ascending colon polyp, biopsy: Fragments of tubular adenoma. AM:kalli 04/25/19 COMMENT B. The results of immunohistochemistry for Helicobacter pylori will be reported separately ([id number]). C. Alcian blue/PAS stain with matched control supports the above diagnosis. Immunohistochemistry ([id number]) supports the above diagnosis. MICROSCOPIC DESCRIPTION Slides are reviewed. GROSS DESCRIPTION A - Received in fixative is one container labeled with the patient's name and designated duodenum biopsy. The specimen consists of one irregular fragment of light hummel soft tissue that measures 0.4 x 0.4 x 0.1 cm. The specimen is totally submitted in one cassette. B - Received in fixative is one container labeled with the patient's name and designated antral biopsy. The specimen consists of two irregular fragments of light hummel soft tissue that in aggregate measure 0.4 x 0.3 x 0.1 cm. The specimen is totally submitted in one cassette. C - Received in fixative is one container labeled with the patient's name and designated distal esophagus biopsy. The specimen consists of one irregular fragment of light hummel soft tissue that measures 0.4 x 0.3 x 0.1 cm. The specimen is totally submitted in one cassette. D - Received in fixative is one container labeled with the patient's name and designated mid esophagus biopsy. The specimen consists of one irregular fragment of light hummel soft tissue that measures 0.4 x 0.3 x 0.1 cm. The specimen is totally submitted in one cassette. E - Received in fixative is one container labeled with the patient's name and designated random colon biopsy. The specimen consists of multiple irregular fragments of light hummel soft tissue that in aggregate measure 2 x 0.8 x 0.1 cm. The specimen is totally submitted in one cassette. F - Received in fixative is one container labeled with the patient's name and designated ascending colon biopsy. The specimen consists of one irregular fragment of light hummel soft tissue that measures 0.4 x 0.3 x 0.1 cm. The specimen is totally submitted in one cassette. / SJ:rg 04/24/19 TC:3 CPT: 74247 x6, 43620
[2019-04-24 07:01] LABS: Bedside Glucose 129 mg/dL (70-110)
--- NOTE | 2019-04-24 07:02 | OP.ENDO_ITS ---
04/24/2019 Galina Tavarez [address] [place] [address] Re : Upper GI endoscopy procedure for Dayami Hall Dear Dr. Tavarez This procedure was performed on March. My impressions and recommendations are as follows: Impressions : - LA Grade A reflux esophagitis. Biopsied. Mid esophagus biopsied - 1 cm hiatal hernia. - Chronic gastritis. Biopsied. - Normal examined duodenum. Biopsied. Recommendations : - Discharge patient to home. - Resume previous diet. - Continue present medications. - Telephone my office for pathology results in 1 week. My findings are described in the full procedure note, which is enclosed. If I can be of further assistance, please feel free to contact me at Doctor phone number(s): Work: . Sincerely, Reece Walter MD 04/24/2019 7:01:15 AM This report has been signed electronically.
--- NOTE | 2019-04-24 07:07 | OP.ENDO_ITS ---
04/24/2019 Galina Tavarez [address] [facility] [place] [address] Re : Colonoscopy procedure for Dayami Hall Dear Dr. Tavarez This procedure was performed on March. My impressions and recommendations are as follows: Impressions : - Non-thrombosed external hemorrhoids, non-thrombosed internal hemorrhoids and internal hemorrhoids that prolapse with straining, but spontaneously regress to the resting position (Grade II) found on digital rectal exam. - One 3 mm polyp in the mid ascending colon, removed with a cold biopsy forceps. Resected and retrieved. Vague area. See photo. Low suspicion - Diverticulosis in the sigmoid colon and in the descending colon. Biopsied. - The examination was otherwise normal. Recommendations : - Discharge patient to home. - Resume previous diet. - Continue present medications. - Repeat colonoscopy in 10 years for screening purposes--pending pathology - Telephone my office for pathology results in 1 week. My findings are described in the full procedure note, which is enclosed. If I can be of further assistance, please feel free to contact me at Doctor phone number(s): Work: . Sincerely, Reece Walter MD 04/24/2019 7:06:54 AM This report has been signed electronically.
== END 2019-04-24 08:09 | disposition home or self-care (01) ==
LOC: EN 05:17 → AC 05:18
PROVIDERS: Family Provider Family Medicine; PCP Family Medicine; Referring Provider Family Medicine; Visit Provider Surgery
PROC: 0DJD8ZZ Inspection of Lower Intestinal Tract, Via Natural or Artificial Opening Endoscopic (ICD-10-PCS; CPT 45378; principal; 2019-04-24 06:25)
DX: D12.2 Benign neoplasm of ascending colon (principal); K64.4 Residual hemorrhoidal skin tags; K64.1 Second degree hemorrhoids; K57.30 Diverticulosis of large intestine without perforation or abscess without bleeding; K29.50 Unspecified chronic gastritis without bleeding; K22.70 Barrett's esophagus without dysplasia; K44.9 Diaphragmatic hernia without obstruction or gangrene; K21.0 Gastro-esophageal reflux disease with esophagitis; R10.13 Epigastric pain; R19.7 Diarrhea, unspecified; R10.11 Right upper quadrant pain; R94.8 Abnormal results of function studies of other organs and systems; E03.9 Hypothyroidism, unspecified; I25.10 Atherosclerotic heart disease of native coronary artery without angina pectoris; I49.3 Ventricular premature depolarization; I10 Essential (primary) hypertension; E78.5 Hyperlipidemia, unspecified; E11.9 Type 2 diabetes mellitus without complications; Z95.5 Presence of coronary angioplasty implant and graft; Z79.82 Long term (current) use of aspirin; Z79.84 Long term (current) use of oral hypoglycemic drugs; Z79.899 Other long term (current) drug therapy
CPT/HCPCS: 43239; 45380; 82962; 88305; 88313; 88342; 99152; 99153; J7120

== ENCOUNTER → 2019-04-28 13:24 | Outpatient (CLI) | payer MEDICARE, OTHER, SELFPAY ==
[2019-04-24 05:41] VITALS: BMI 33.9
== END ==
PROVIDERS: Family Provider Family Medicine; PCP Family Medicine; Referring Provider Surgery; Visit Provider Surgery
DX: R19.7 Diarrhea, unspecified (principal)
CPT/HCPCS: 87493

== ENCOUNTER 2019-05-13 08:00 | Outpatient (RCR) | payer MEDICARE, OTHER, SELFPAY ==
[2019-04-24 05:41] VITALS: BMI 33.9
[2019-04-29 09:05] VITALS: BP 137/70; PULSE 74; RESP 18; TEMP 37.1; BMI 33.8
[2019-04-29 09:22] VITALS: BMI 33.8
--- NOTE | 2019-04-29 11:45 | HP.PCM_ITS ---
(1) Leg swelling Status: Chronic Current Visit: Yes Code(s): M79.89 - Other specified soft tissue disorders (2) Leg edema Status: Chronic Current Visit: Yes Code(s): R60.0 - Localized edema (3) Leg pain Status: Chronic Current Visit: Yes Qualifiers: Laterality: bilateral Qualified Code(s): M79.604 - Pain in right leg; M79.605 - Pain in left leg Code(s): M79.606 - Pain in leg, unspecified (4) CAD (coronary artery disease) Status: Chronic Current Visit: No Code(s): I25.10 - Atherosclerotic heart disease of [place] coronary artery without angina pectoris (5) History of coronary artery stent placement Status: Chronic Current Visit: No Code(s): Z95.5 - Presence of coronary angioplasty implant and graft (6) History of MA (myocardial infarction) Status: Chronic Current Visit: No Code(s): I25.2 - Old myocardial infarction (7) Hyperlipidemia Status: Chronic Current Visit: No Code(s): E78.5 - Hyperlipidemia, unspecified (8) Hypothyroidism Status: Chronic Current Visit: No Code(s): E03.9 - Hypothyroidism, unspecified (9) Hypertension Status: Chronic Current Visit: No Qualifiers: Code(s): I10 - Essential (primary) hypertension (10) Diabetes mellitus Status: Chronic Current Visit: No Code(s): E11.9 - Type 2 diabetes mellitus without complications Comment: Type II, Uncontrolled (11) Lumbar disc disease Status: Chronic Current Visit: Yes Code(s): M51.9 - Unspecified thoracic, thoracolumbar and lumbosacral intervertebral disc disorder History of Present Illness Date of Service: 04/29/19 Chief Complaint: Bilateral lower extremity swelling, edema, and pain History of Wound: This is a 68-year-old female who presents with somewhat vague complaints. She states that her lower extremities swell. The swelling and edema which she describes is intermittent. It is unrelated to activity or time of day. She often notes that involving her left ankle. When her legs swell she describes discomfort stating that she feels a sensation of burning and stinging. She claims to sleep on a flat mattress at night. She admits that her activity has diminished in recent months. She has recently been diagnosed with calcification in the area of her right hip, which has been painful, and has resulted in a decrease in her level of activity. She also suffers from lumbar disc disease. She is obese, and indicates that she has gained weight in recent months. As a result in her decreased level of activity, she spends longer periods of time each day in an idle sitting position. Past Medical History Past Medical History: Chronic Problems (Last Reviewed 04/19/19 @ 08:48 by Anisa Polanco) Leg swelling (Chronic) Leg edema (Chronic) Leg pain (Chronic) CAD (coronary artery disease) (Chronic) History of coronary artery stent placement (Chronic) History of MA (myocardial infarction) (Chronic) Hyperlipidemia (Chronic) Lumbar disc disease (Chronic) Hypothyroidism (Chronic) Syncope and collapse (Chronic) Premature ventricular contractions (Chronic) [facility] use of drug (Chronic) Hypertension (Chronic) Hyperlipidemia (Chronic) Fatigue (Chronic) Dizziness (Chronic) Diabetes mellitus (Chronic) Type II, Uncontrolled Dyspnea, unspecified (Chronic) Cough (Chronic) Chest pain (Chronic) History of coronary artery stent placement (Chronic) PTCA of the LAD CFX intracoronary stent April 2007 Atherosclerosis of coronary artery of [place] heart without angina pectoris (Chronic) PTCA/CYRIL of the LAD & LCX April 2007; Past Medical History: Patient has a history of myocardial infarction, coronary stent placement, diabetes mellitus, hyperlipidemia, hypothyroidism, hypertension, lumbar disc disease. She denies a history of congestive heart failure, cerebrovascular accident, cancer, pulmonary disease, and renal disease. Surgical History: - - Patient has a history of left total knee replacement, bilateral carpal tunnel release, bilateral cataract surgery, right shoulder surgery, right hand ganglion cyst excision, and left lower extremity vein procedure. The patient is a G3, P3 Ab0. Allergies/Adverse Reactions: Allergies hydrocodone bitartrate [From Vicodin] Allergy (Verified 04/19/19 08:52) Itching Iodinated Contrast Media Allergy (Verified 04/19/19 08:52) Anaphylaxis codeine Adverse Reaction (Severe, Verified 04/19/19 08:52) Unknown esomeprazole [From Nexium] Adverse Reaction (Severe, Verified 04/19/19 08:52) Causes elevated LFTs Sulfa (Sulfonamide Antibiotics) Adverse Reaction (Severe, Verified 04/19/19 08: 52) Causes elevated LFTs levofloxacin [From Levaquin] Adverse Reaction (Verified 04/19/19 08:52) Nausea/Vom/Diarrhea Niacin Preparations Adverse Reaction (Verified 04/19/19 08:52) Other Home Medications: Ambulatory Orders Medication Instructions Recorded Calcium (Elemental) [Caltrate-600] 2,000 mg PO DAILY@0800 05/19/14 Levothyroxine [Synthroid] 100 mcg PO DAILY 05/19/14 aspirin 81 mg tablet,delayed 81 mg PO QDAY 08/23/17 release nitroglycerin 0.4 mg sublingual 0.4 mg SUBLINGUAL Q5-15M PRN #25 08/31/17 tablet tab metformin ER 500 mg 500 mg PO BID tab 09/10/17 tablet,extended release 24 hr metoprolol tartrate 100 mg tablet 100 mg PO BID #180 tab 05/06/18 rosuvastatin 20 mg tablet 20 mg PO QHS #90 tab 08/16/18 glipizide ER 2.5 mg tablet, 2.5 mg PO DAILY 09/16/18 extended release 24 hr nabumetone 750 mg tablet 750 mg PO BID 09/16/18 omeprazole 10 mg capsule,delayed 40 mg PO DAILY 09/16/18 release estradiol 0.01% (0.1 mg/gram) 1 g VAGINAL QWEEK 09/18/18 vaginal cream fluticasone propionate 50 2 spray INTRANASAL DAILY 09/18/18 mcg/actuation nasal spray,suspension methenamine hippurate 1 gram tablet 1 g PO BID 09/18/18 omega-3 fatty acids 1,000 mg 1,000 mg PO DAILY 09/18/18 capsule amlodipine 5 mg tablet 5 mg PO DAILY #30 tab 11/26/18 - Family History Paternal Family History: Family History (Last Reviewed 04/19/19 @ 08:48 by Anisa Polanco) Mother Diabetes Heart disease - - Patient's father at the age of 80 with a history of Parkinson's disease. Patient's mother is 95 years of age and generally healthy. 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 Lives: Spouse/ Significant Other Smoking Status: Never smoker Tobacco Use: Non-smoker Alcohol: None Drugs: None Review of Systems Constitutional: Denies: Chills, Fever, Weight Change Eyes: Denies: Pain, Vision Change HEENT: Denies: Difficulty Hearing, Difficulty Swallowing, Sinus Congestion Cardiovascular: Denies: Chest Pain, Palpitations Respiratory: Denies: Cough, Shortness of Breath Gastrointestinal: Denies: Diarrhea, Nausea, Vomiting Genitourinary: Denies: Dysuria, Hematuria Endocrine: Denies: Heat/ Cold Intolerance, Polydipsia, Polyuria Hematologic/ Lymphatic: Denies: Easy Bruising, Easy Bleeding - Physical Exam Vital Signs Temp Pulse Resp BP 98.8 F 74 18 137/70 H 04/29/19 09:05 04/29/19 09:05 04/29/19 09:05 04/29/19 09:05 General: Alert, Oriented x3, Cooperative, No apparent distress, Well developed, Well nourished HEENT: Atraumatic, PERRLA, EOMI, Normocephalic Oral: Moist Mucosa Neck: Supple, No JVD, Negative Carotid Bruits, Negative Hepatojugular Reflux, No Nodes, No Nuchal Rigidity, Trachea Midline Lungs: Clear to auscultation, Normal air movement, No rhonchi, No wheeze, No rales Cardiovascular: Regular rate, Regular Rhythm, Normal S1, Normal S2, No murmurs Abdomen: Soft, Non Tender, Non-Distended Extremities: No clubbing, No cyanosis, No Calf Tenderness, - - Only very slight swelling and edema are noted in the patient's lower extremities bilaterally. There are no significant skin changes. There is no sign of infection or cellulitis. No significant varicosities are noted. There are no open wounds or ulcerations. Skin: No rashes, No breakdown Wound Measurements and Assessment WC - Nurse 1 - General Ulcer Measurement Start: 04/29/19 09:05 Freq: Status: Active Protocol: Activity Type Activity Date Activity User E-Sign Co-Sign Detail Recorded Client Recorded Date Recorded By Document 04/29/19 09:05 ME [id number] 04/29/19 09:14 ME 04/29/19 09:05 Wound Center Nurse 1 [Edema Assessment] -Right Calf (cm) 39.7 -Right Ankle (cm) 23.9 -Left Calf (cm) 39.8 -Left Ankle (cm) 23.4 Musculoskeletal: No Muscle Wasting Neurological: Cranial nerves II-XII grossly intact, Neuro grossly intact Psych/Mental Status: Normal Affect, Appropriate, Alert and oriented to time, place, person, mood and affect Debridement Note No debridement was completed today - There are no open wounds or ulcerations. Assessment/Plan Active Problems (Last Reviewed 04/19/19 @ 08:48 by Anisa Polanco) Leg swelling (Chronic) Leg edema (Chronic) Leg pain (Chronic) Lumbar disc disease (Chronic) Assessment: This is a 68-year-old female who presents with vague complaints of swelling, edema, and pain in both lower extremities. It appears as though she has had recent lifestyle changes, which have resulted in a more sedentary lifestyle. As result of lumbar disc disease, as well as apparent degenerative joint disease, patient has become less active, leading to a more sedentary lifestyle. She spends more hours each day in an idle sitting position. As result, she has also gained weight. Plan: We have described a commonsense protocol of lifestyle changes. The patient has been encouraged to elevate her lower extremities as much as possible. She is to continue sleeping on a flat mattress at night. Her legs are to be elevated to heart level, or higher, as much as possible each day. She has been encouraged to enhance her level of activity. Prolonged idle sitting has been discouraged. Weight loss has been recommended. ABIs have been obtained in our facility today, with results as follows: The right ankle- brachial index is 1.01. The left ankle-brachial index is 0.94. Therefore, we are to implement compression to the lower extremities by means of a 3M 2 layer compression wrap which will be applied to each lower extremity today, will be changed twice weekly. This will be viewed as a temporary measure, anticipating that graduated compression stockings will be prescribed in the near future, once the minor amount of swelling and edema resolves. Compression of approximately 20 to 30 mmHg compression is likely to be prescribed. A venous duplex examination will also be obtained. Patient will return in 1 week for reassessment. Influenza vaccine was not administered today. The patient stands 5 feet 1 inches tall. She weighs 179 pounds. BMI is 33.8, which places the patient in a class I obesity category. Weight loss has been recommended, in collaboration with her primary care physician has been advised. Patient is not a smoker.
[2019-05-02 11:40] VITALS: BP 130/94; PULSE 77; RESP 18; TEMP 36.3; BMI 33.8
--- NOTE | 2019-05-06 08:03 | VDLE_ITS ---
Reason For Study: edema RIGHT LEFT CFV is compressible, spontaneous, phasic, CFV is compressible, spontaneous, phasic, competent and demonstrates normal competent, and demonstrates normal augmentation. augmentation. FV is compressible, spontaneous, phasic, FV is compressible, spontaneous, phasic, competent and demonstrates normal competent and demonstrates normal augmentation. augmentation. POP V is compressible, spontaneous, phasic, POP V is compressible, spontaneous, phasic, competent and demonstrates normal competent and demonstrates normal augmentation. augmentation. T/P Trunk is compressible. T/P Trunk is compressible. PTV is compressible. PTV is compressible. RT PerV is compressible. LT PerV is compressible. SFJ is competent and measures .89 x .87 cm. GSV is absent S/P EVLA. GSV proximal thigh measures .53 x .53 cm. SFJ is competent and measures .74 x .72 cm. GSV at knee measures .42 x .45 cm. SSV proximal calf is INCOMPETENT for greater GSV INCOMPETENT throughout for greater than than 0.5 seconds and measures .46 x .48 cm. 0.5 seconds. SSV proximal calf is competent and measures .23 x .27 cm. ASV at the knee is incompetent for greater than .5 seconds with a diamter of .29 x .3 cm. Procedure Exam performed in department. The exam was diagnostic. Interpretation Summary Deep veins of the lower extremities are bilaterally patent and compressible segmentally. There is no evidence of deep vein thrombosis on either side. Valvular competence appears intact within the proximal deep venous systems bilaterally. The right great saphenous vein appears patent and compressible segmentally. The left great saphenous vein is absent, consistent with a prior endothermal ablation procedure. Sapheno-femoral junctions are bilaterally competent . The right great saphenous vein appears segmentally incompetent. The right small saphenous vein is patent and competent. The left small saphenous vein is patent and incompetent. The right accessory saphenous vein at the right knee is incompetent. Ordering Physician: Edmund Edwards Performed By: Nico Llamas RVT
[2019-05-06 09:24] VITALS: BP 146/84; RESP 16; BMI 33.8
--- NOTE | 2019-05-06 10:06 | HP.PCM_ITS ---
(1) Leg swelling Status: Chronic Current Visit: Yes Code(s): M79.89 - Other specified soft tissue disorders (2) Leg edema Status: Chronic Current Visit: Yes Code(s): R60.0 - Localized edema (3) Leg pain Status: Chronic Current Visit: Yes Qualifiers: Laterality: bilateral Qualified Code(s): M79.604 - Pain in right leg; M79.605 - Pain in left leg Code(s): M79.606 - Pain in leg, unspecified (4) CAD (coronary artery disease) Status: Chronic Current Visit: No Code(s): I25.10 - Atherosclerotic heart disease of [place] coronary artery without angina pectoris (5) History of coronary artery stent placement Status: Chronic Current Visit: No Code(s): Z95.5 - Presence of coronary angioplasty implant and graft (6) History of CO (myocardial infarction) Status: Chronic Current Visit: No Code(s): I25.2 - Old myocardial infarction (7) Hyperlipidemia Status: Chronic Current Visit: No Code(s): E78.5 - Hyperlipidemia, unspecified (8) Hypothyroidism Status: Chronic Current Visit: No Code(s): E03.9 - Hypothyroidism, unspecified (9) Hypertension Status: Chronic Current Visit: No Qualifiers: Code(s): I10 - Essential (primary) hypertension (10) Diabetes mellitus Status: Chronic Current Visit: No Code(s): E11.9 - Type 2 diabetes mellitus without complications Comment: Type II, Uncontrolled (11) Lumbar disc disease Status: Chronic Current Visit: Yes Code(s): M51.9 - Unspecified thoracic, thoracolumbar and lumbosacral intervertebral disc disorder History of Present Illness Date of Service: 05/06/19 Chief Complaint: Bilateral lower extremity swelling, edema, and pain History of Wound: This is a 68-year-old female who presents with somewhat vague complaints. She states that her lower extremities swell. The swelling and edema which she describes is intermittent. It is unrelated to activity or time of day. She often notes that involving her left ankle. When her legs swell she describes discomfort stating that she feels a sensation of burning and stinging. She claims to sleep on a flat mattress at night. She admits that her activity has diminished in recent months. She has recently been diagnosed with calcification in the area of her right hip, which has been painful, and has resulted in a decrease in her level of activity. She also suffers from lumbar disc disease. She is obese, and indicates that she has gained weight in recent months. As a result in her decreased level of activity, she spends longer periods of time each day in an idle sitting position. Past Medical History Past Medical History: Chronic Problems (Last Reviewed 04/19/19 @ 08:48 by Anisa Polanco) Leg swelling (Chronic) Leg edema (Chronic) Leg pain (Chronic) CAD (coronary artery disease) (Chronic) History of coronary artery stent placement (Chronic) History of CO (myocardial infarction) (Chronic) Hyperlipidemia (Chronic) Lumbar disc disease (Chronic) Hypothyroidism (Chronic) Syncope and collapse (Chronic) Premature ventricular contractions (Chronic) residential use of drug (Chronic) Hypertension (Chronic) Hyperlipidemia (Chronic) Fatigue (Chronic) Dizziness (Chronic) Diabetes mellitus (Chronic) Type II, Uncontrolled Dyspnea, unspecified (Chronic) Cough (Chronic) Chest pain (Chronic) History of coronary artery stent placement (Chronic) PTCA of the LAD CFX intracoronary stent April 2007 Atherosclerosis of coronary artery of [place] heart without angina pectoris (Chronic) PTCA/CYRIL of the LAD & LCX April 2007; Surgical History: - - Patient has a history of left total knee replacement, bilateral carpal tunnel release, bilateral cataract surgery, right shoulder surgery, right hand ganglion cyst excision, and left lower extremity vein procedure. The patient is a G3, P3 Ab0. Allergies/Adverse Reactions: Allergies hydrocodone bitartrate [From Vicodin] Allergy (Verified 04/19/19 08:52) Itching Iodinated Contrast Media Allergy (Verified 04/19/19 08:52) Anaphylaxis codeine Adverse Reaction (Severe, Verified 04/19/19 08:52) Unknown esomeprazole [From Nexium] Adverse Reaction (Severe, Verified 04/19/19 08:52) Causes elevated LFTs Sulfa (Sulfonamide Antibiotics) Adverse Reaction (Severe, Verified 04/19/19 08:52) Causes elevated LFTs levofloxacin [From Levaquin] Adverse Reaction (Verified 04/19/19 08:52) Nausea/Vom/Diarrhea Niacin Preparations Adverse Reaction (Verified 04/19/19 08:52) Other Home Medications: Ambulatory Orders Medication Instructions Recorded Calcium (Elemental) [Caltrate-600] 2,000 mg PO DAILY@0800 05/19/14 Levothyroxine [Synthroid] 100 mcg PO DAILY 05/19/14 aspirin 81 mg tablet,delayed 81 mg PO QDAY 08/23/17 release nitroglycerin 0.4 mg sublingual 0.4 mg SUBLINGUAL Q5-15M PRN #25 08/31/17 tablet tab metformin ER 500 mg 500 mg PO BID tab 09/10/17 tablet,extended release 24 hr rosuvastatin 20 mg tablet 20 mg PO QHS #90 tab 08/16/18 glipizide ER 2.5 mg tablet, 2.5 mg PO DAILY 09/16/18 extended release 24 hr nabumetone 750 mg tablet 750 mg PO BID 09/16/18 omeprazole 10 mg capsule,delayed 40 mg PO DAILY 09/16/18 release estradiol 0.01% (0.1 mg/gram) 1 g VAGINAL QWEEK 09/18/18 vaginal cream fluticasone propionate 50 2 spray INTRANASAL DAILY 09/18/18 mcg/actuation nasal spray,suspension methenamine hippurate 1 gram tablet 1 g PO BID 09/18/18 omega-3 fatty acids 1,000 mg 1,000 mg PO DAILY 09/18/18 capsule amlodipine 5 mg tablet 5 mg PO DAILY #30 tab 11/26/18 metoprolol tartrate 100 mg tablet 100 mg PO BID #180 tab 05/02/19 - Family History Paternal Family History: Family History (Last Reviewed 04/19/19 @ 08:48 by Anisa Polanco) Mother Diabetes Heart disease - - Patient's father at the age of 80 with a history of Parkinson's disease. Patient's mother is 95 years of age and generally healthy. Lives: Spouse/ Significant Other Smoking Status: Never smoker Tobacco Use: Non-smoker Alcohol: None Drugs: None Review of Systems Constitutional: Denies: Chills, Fever, Weight Change Eyes: Denies: Pain, Vision Change HEENT: Denies: Difficulty Hearing, Difficulty Swallowing, Sinus Congestion Cardiovascular: Denies: Chest Pain, Palpitations Respiratory: Denies: Cough, Shortness of Breath Gastrointestinal: Denies: Diarrhea, Nausea, Vomiting Genitourinary: Denies: Dysuria, Hematuria Endocrine: Denies: Heat/ Cold Intolerance, Polydipsia, Polyuria Hematologic/ Lymphatic: Denies: Easy Bruising, Easy Bleeding - Physical Exam Vital Signs Temp Pulse Resp BP 97.4 F L 77 16 146/84 H 05/02/19 11:40 05/02/19 11:40 05/06/19 09:24 05/06/19 09:24 General: Alert, Oriented x3, Cooperative, No apparent distress, Well developed, Well nourished HEENT: Atraumatic, PERRLA, EOMI, Normocephalic Oral: Moist Mucosa Neck: No JVD Lungs: Normal air movement Abdomen: Non-Distended Extremities: No clubbing, No cyanosis, No Calf Tenderness, - - There are no open wounds or ulcerations in the patient's lower extremities. There are no significant skin changes. There is only slight swelling and edema in each lower extremity. Circumference measurements are little changed since the patient's last visit. Skin: No rashes, No breakdown Wound Measurements and Assessment WC - Nurse 1 - General Ulcer Measurement Start: 04/29/19 09:05 Freq: Status: Active Protocol: Activity Type Activity Date Activity User E-Sign Co-Sign Detail Recorded Client Recorded Date Recorded By Document 05/06/19 09:24 [facility] [id number] 05/06/19 09:30 [facility] 05/06/19 09:24 Wound Center Nurse 1 [Edema Assessment] -Lower Limb Edema Present Yes -Right Calf (cm) 39.8 -Right Ankle (cm) 24 -Left Calf (cm) 39.6 -Left Ankle (cm) 23.7 WC - Nurse 2 - General Ulcer CM Notes Start: 04/29/19 09:05 Freq: Status: Active Protocol: Activity Type Activity Date Activity User E-Sign Co-Sign Detail Recorded Client Recorded Date Recorded By Document 05/06/19 09:57 [id number] 05/06/19 09:59 05/06/19 09:57 Pain Scale: 0-10 Numeric [Pain] -Is Patient Pain Free? Yes Musculoskeletal: No Muscle Wasting Neurological: Cranial nerves II-XII grossly intact, Neuro grossly intact Psych/Mental Status: Normal Affect, Appropriate, Alert and oriented to time, place, person, mood and affect Debridement Note Post-Debridement Measurements/Treatment WC - Nurse 2 - General Ulcer CM Notes Start: 04/29/19 09:05 Freq: Status: Active Protocol: Activity Type Activity Date Activity User E-Sign Co-Sign Detail Recorded Client Recorded Date Recorded By Document 05/06/19 09:57 JF [id number] 05/06/19 09:59 JF 05/06/19 09:57 Pain Scale: 0-10 Numeric Is Patient Pain Free? Yes No debridement was completed today - There are no open wounds or ulcerations Assessment/Plan Active Problems (Last Reviewed 04/19/19 @ 08:48 by Anisa Polanco) Leg swelling (Chronic) Leg edema (Chronic) Leg pain (Chronic) Lumbar disc disease (Chronic) Assessment: This is a 68-year-old female who presented with vague complaints of swelling, edema, and pain in both lower extremities. It appears as though she has had recent lifestyle changes, which have resulted in a more sedentary lifestyle. As result of lumbar disc disease, as well as apparent degenerative joint disease, patient has become less active, leading to a more sedentary lifestyle. She spends more hours each day in an idle sitting position. As result, she has also gained weight. Plan: We have described a commonsense protocol of lifestyle changes. The patient has been encouraged to elevate her lower extremities as much as possi ble. She is to continue sleeping on a flat mattress at night. Her legs are to be elevated to heart level, or higher, as much as possible each day. She has been encouraged to enhance her level of activity. Prolonged idle sitting has been discouraged. Weight loss has been recommended. ABIs have been obtained in our facility today, with results as follows: The right ankle-brachial index is 1.01. The left ankle-brachial index is 0.94. Therefore, we are to continue compression to the lower extremities by means of a 3M 2 layer compression wrap which will be applied to each lower extremity today. This will be viewed as a temporary measure, anticipating that graduated compression stockings will be prescribed in the near future, once the minor amount of swelling and edema resolves. Compression of approximately 20 to 30 mmHg compression is likely to be prescribed. 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 The left great saphenous vein is absent, having previously been ablated. Patient will return in 1 week for reassessment. She admits to poor compliance with the recommendation for frequent elevation of her lower extremities. Influenza vaccine was not administered today. The patient stands 5 feet 1 inches tall. She weighs 179 pounds. BMI is 33.8, which places the patient in a class I obesity category. Weight loss has been recommended, in collaboration with her primary care physician has been advised. Patient is not a smoker.
[2019-05-13 08:06] VITALS: BP 143/80; PULSE 81; RESP 18; TEMP 35.9; BMI 33.8
--- NOTE | 2019-05-13 08:24 | PCM.WC.HP ---
(1) Leg swelling Status: Chronic Current Visit: Yes Code(s): M79.89 - Other specified soft tissue disorders (2) Leg edema Status: Chronic Current Visit: Yes Code(s): R60.0 - Localized edema (3) Leg pain Status: Chronic Current Visit: Yes Qualifiers: Laterality: bilateral Qualified Code(s): M79.604 - Pain in right leg; M79.605 - Pain in left leg Code(s): M79.606 - Pain in leg, unspecified (4) CAD (coronary artery disease) Status: Chronic Current Visit: No Code(s): I25.10 - Atherosclerotic heart disease of [place] coronary artery without angina pectoris (5) History of coronary artery stent placement Status: Chronic Current Visit: No Code(s): Z95.5 - Presence of coronary angioplasty implant and graft (6) History of UT (myocardial infarction) Status: Chronic Current Visit: No Code(s): I25.2 - Old myocardial infarction (7) Hyperlipidemia Status: Chronic Current Visit: No Code(s): E78.5 - Hyperlipidemia, unspecified (8) Hypothyroidism Status: Chronic Current Visit: No Code(s): E03.9 - Hypothyroidism, unspecified (9) Hypertension Status: Chronic Current Visit: No Qualifiers: Code(s): I10 - Essential (primary) hypertension (10) Diabetes mellitus Status: Chronic Current Visit: No Code(s): E11.9 - Type 2 diabetes mellitus without complications Comment: Type II, Uncontrolled (11) Lumbar disc disease Status: Chronic Current Visit: Yes Code(s): M51.9 - Unspecified thoracic, thoracolumbar and lumbosacral intervertebral disc disorder History of Present Illness Date of Service: 05/13/19 Chief Complaint: Bilateral lower extremity swelling, edema, and pain History of Wound: This is a 68-year-old female who presents with somewhat vague complaints. She states that her lower extremities swell. The swelling and edema which she describes is intermittent. It is unrelated to activity or time of day. She often notes that involving her left ankle. When her legs swell she describes discomfort stating that she feels a sensation of burning and stinging. She claims to sleep on a flat mattress at night. She admits that her activity has diminished in recent months. She has recently been diagnosed with calcification in the area of her right hip, which has been painful, and has resulted in a decrease in her level of activity. She also suffers from lumbar disc disease. She is obese, and indicates that she has gained weight in recent months. As a result in her decreased level of activity, she spends longer periods of time each day in an idle sitting position. Past Medical History Past Medical History: Chronic Problems (Last Reviewed 04/19/19 @ 08:48 by Anisa Polanco) Leg swelling (Chronic) Leg edema (Chronic) Leg pain (Chronic) CAD (coronary artery disease) (Chronic) History of coronary artery stent placement (Chronic) History of UT (myocardial infarction) (Chronic) Hyperlipidemia (Chronic) Lumbar disc disease (Chronic) Hypothyroidism (Chronic) Syncope and collapse (Chronic) Premature ventricular contractions (Chronic) correction use of drug (Chronic) Hypertension (Chronic) Hyperlipidemia (Chronic) Fatigue (Chronic) Dizziness (Chronic) Diabetes mellitus (Chronic) Type II, Uncontrolled Dyspnea, unspecified (Chronic) Cough (Chronic) Chest pain (Chronic) History of coronary artery stent placement (Chronic) PTCA of the LAD CFX intracoronary stent April 2007 Atherosclerosis of coronary artery of [place] heart without angina pectoris (Chronic) PTCA/CYRIL of the LAD & LCX April 2007; Surgical History: - - Patient has a history of left total knee replacement, bilateral carpal tunnel release, bilateral cataract surgery, right shoulder surgery, right hand ganglion cyst excision, and left lower extremity vein procedure. The patient is a G3, P3 Ab0. Allergies/Adverse Reactions: Allergies hydrocodone bitartrate [From Vicodin] Allergy (Verified 04/19/19 08:52) Itching Iodinated Contrast Media Allergy (Verified 04/19/19 08:52) Anaphylaxis codeine Adverse Reaction (Severe, Verified 04/19/19 08:52) Unknown esomeprazole [From Nexium] Adverse Reaction (Severe, Verified 04/19/19 08:52) Causes elevated LFTs Sulfa (Sulfonamide Antibiotics) Adverse Reaction (Severe, Verified 04/19/19 08:52) Causes elevated LFTs levofloxacin [From Levaquin] Adverse Reaction (Verified 04/19/19 08:52) Nausea/Vom/Diarrhea Niacin Preparations Adverse Reaction (Verified 04/19/19 08:52) Other Home Medications: Ambulatory Orders Medication Instructions Recorded Calcium (Elemental) [Caltrate-600] 2,000 mg PO DAILY@0800 05/19/14 Levothyroxine [Synthroid] 100 mcg PO DAILY 05/19/14 aspirin 81 mg tablet,delayed 81 mg PO QDAY 08/23/17 release nitroglycerin 0.4 mg sublingual 0.4 mg SUBLINGUAL Q5-15M PRN #25 08/31/17 tablet tab metformin ER 500 mg 500 mg PO BID tab 09/10/17 tablet,extended release 24 hr rosuvastatin 20 mg tablet 20 mg PO QHS #90 tab 08/16/18 glipizide ER 2.5 mg tablet, 2.5 mg PO DAILY 09/16/18 extended release 24 hr nabumetone 750 mg tablet 750 mg PO BID 09/16/18 omeprazole 10 mg capsule,delayed 40 mg PO DAILY 09/16/18 release estradiol 0.01% (0.1 mg/gram) 1 g VAGINAL QWEEK 09/18/18 vaginal cream fluticasone propionate 50 2 spray INTRANASAL DAILY 09/18/18 mcg/actuation nasal spray,suspension methenamine hippurate 1 gram tablet 1 g PO BID 09/18/18 omega-3 fatty acids 1,000 mg 1,000 mg PO DAILY 09/18/18 capsule amlodipine 5 mg tablet 5 mg PO DAILY #30 tab 11/26/18 metoprolol tartrate 100 mg tablet 100 mg PO BID #180 tab 05/02/19 - Family History Paternal Family History: Family History (Last Reviewed 04/19/19 @ 08:48 by Anisa Polanco) Mother Diabetes Heart disease - - Patient's father at the age of 80 with a history of Parkinson's disease. Patient's mother is 95 years of age and generally healthy. Lives: Spouse/ Significant Other Smoking Status: Never smoker Tobacco Use: Non-smoker Alcohol: None Drugs: None Review of Systems Constitutional: Denies: Chills, Fever, Weight Change Eyes: Denies: Pain, Vision Change HEENT: Denies: Difficulty Hearing, Difficulty Swallowing, Sinus Congestion Cardiovascular: Denies: Chest Pain, Palpitations Respiratory: Denies: Cough, Shortness of Breath Gastrointestinal: Denies: Diarrhea, Nausea, Vomiting Genitourinary: Denies: Dysuria, Hematuria Endocrine: Denies: Heat/ Cold Intolerance, Polydipsia, Polyuria Hematologic/ Lymphatic: Denies: Easy Bruising, Easy Bleeding - Physical Exam Vital Signs Temp Pulse Resp BP 96.6 F L 81 18 143/80 H 05/13/19 08:06 05/13/19 08:06 05/13/19 08:06 05/13/19 08:06 General: Alert, Oriented x3, Cooperative, No apparent distress, Well developed, Well nourished HEENT: Atraumatic, PERRLA, EOMI, Normocephalic Oral: Moist Mucosa Neck: No JVD Lungs: Normal air movement Abdomen: Non-Distended Extremities: No clubbing, No cyanosis, No edema, No Calf Tenderness, - - There is no swelling or edema in the patient's lower extremities at this time. Circumference measurements are noted, and are diminished bilaterally. There are no open wounds or ulcerations in the lower extremities. There are no significant skin changes. There is no sign of infection or cellulitis. Skin: No rashes, No breakdown Wound Measurements and Assessment WC - Nurse 1 - General Ulcer Measurement Start: 04/29/19 09:05 Freq: Status: Active Protocol: Activity Type Activity Date Activity User E-Sign Co-Sign Detail Recorded Client Recorded Date Recorded By Document 05/13/19 08:06 [id number] 05/13/19 08:09 05/13/19 08:06 Wound Center Nurse 1 [Edema Assessment] -Lower Limb Edema Present Yes -Right Calf (cm) 38.3 -Right Ankle (cm) 23.2 -Left Calf (cm) 38.4 -Left Ankle (cm) 23.2 WC - Nurse 2 - General Ulcer CM Notes Start: 04/29/19 09:05 Freq: Status: Active Protocol: Activity Type Activity Date Activity User E-Sign Co-Sign Detail Recorded Client Recorded Date Recorded By Document 05/13/19 08:17 [id number] 05/13/19 08:18 MW 05/13/19 08:17 Pain Scale: 0-10 Numeric [Pain] -Is Patient Pain Free? Yes Musculoskeletal: No Muscle Wasting Neurological: Cranial nerves II-XII grossly intact, Neuro grossly intact Psych/Mental Status: Normal Affect, Appropriate, Alert and oriented to time, place, person, mood and affect Debridement Note Post-Debridement Measurements/Treatment WC - Nurse 2 - General Ulcer CM Notes Start: 04/29/19 09:05 Freq: Status: Active Protocol: Activity Type Activity Date Activity User E-Sign Co-Sign Detail Recorded Client Recorded Date Recorded By Document 05/06/19 09:57 [id number] 05/06/19 09:59 Document 05/13/19 08:17 MW [id number] 05/13/19 08:18 MW 05/06/19 05/13/19 09:57 08:17 Pain Scale: 0-10 Numeric Is Patient Pain Free? Yes Yes No debridement was completed today - There are no open wounds or ulcerations. Assessment/Plan Active Problems (Last Reviewed 04/19/19 @ 08:48 by Anisa Polanco) Leg swelling (Chronic) Leg edema (Chronic) Leg pain (Chronic) Lumbar disc disease (Chronic) Assessment: This is a 68-year-old female who presented with vague complaints of swelling, edema, and pain in both lower extremities. It appears as though she has had recent lifestyle changes, which have resulted in a more sedentary lifestyle. As result of lumbar disc disease, as well as apparent degenerative joint disease, patient has become less active, leading to a more sedentary lifestyle. She spends more hours each day in an idle sitting position. As result, she has also gained weight. Plan: At this time, the swelling and edema in the patient's lower extremities is well controlled. It is, at this time, essentially nonexistent. The swelling and edema has abated. Circumference measurements are diminished. Patient appears to be doing well. She presents with a pair of knee-high graduated compression stockings of 20 to 30 mmHg compression, which appear to be in good condition. We are to transition the patient to the use of the graduated compression stockings on a daily basis. We have also provided a prescription for similar stockings. Patient is to be discharged. We have described a commonsense protocol of lifestyle changes. The patient has been encouraged to elevate her lower extremities as much as possible. She is to continue sleeping on a flat mattress at night. Her legs are to be elevated to heart level, or higher, as much as possible each day. She has been encouraged to enhance her level of activity. Prolonged idle sitting has been discouraged. Weight loss has been recommended. The patient appears to have a good understanding of the lifestyle changes which have been recommended. She is to be discharged at this time, and will follow-up henceforth on an as-needed basis. Influenza vaccine was not administered today. The patient stands 5 feet 1 inches tall. She weighs 179 pounds. BMI is 33.8, which places the patient in a class I obesity category. Weight loss has been recommended, in collaboration with her primary care physician has been advised. Patient is not a smoker.
== END 2019-05-29 23:59 ==
LOC: WC 08:00
PROVIDERS: Family Provider Family Medicine; PCP Family Medicine; Referring Provider Surgery; Visit Provider Surgery
DX: R60.0 Localized edema (principal); M79.89 Other specified soft tissue disorders; I25.2 Old myocardial infarction; I25.10 Atherosclerotic heart disease of native coronary artery without angina pectoris; E03.9 Hypothyroidism, unspecified; E78.5 Hyperlipidemia, unspecified; M51.9 Unspecified thoracic, thoracolumbar and lumbosacral intervertebral disc disorder; I12.9 Hypertensive chronic kidney disease with stage 1 through stage 4 chronic kidney disease, or unspecified chronic kidney disease; E11.65 Type 2 diabetes mellitus with hyperglycemia
CPT/HCPCS: 29581; 93970; 99212; 99213; G0463

== ENCOUNTER → 2019-07-10 08:36 | Outpatient (CLI) | payer MEDICARE, OTHER, SELFPAY ==
[2019-05-29 11:42] VITALS: BMI 32.9
[2019-07-10 10:22] LABS: AST(SGOT) 22 U/L (15-37); Alanine Aminotransfer ALT/SGPT 34 U/L (13-56); Alkaline Phosphatase 62 U/L (45-117); Bilirubin, Direct 0.11 mg/dL (0.00-0.30); Cholesterol 135 mg/dL (200); Globulin 2.8 g/dL (2.2-4.2); High Density Lipoprotein 38 mg/dL; Protein, Total 6.8 g/dL (6.4-8.2); Triglycerides 274 mg/dL; Very Low Density Lipoprotein 55 mg/dL (5-40)
== END ==
PROVIDERS: Family Provider Family Medicine; PCP Family Medicine; Referring Provider Physician Assistant Medical; Visit Provider Physician Assistant Medical
DX: E78.5 Hyperlipidemia, unspecified (principal); I25.10 Atherosclerotic heart disease of native coronary artery without angina pectoris
CPT/HCPCS: 36415; 80061; 80076

== ENCOUNTER → 2019-09-24 07:49 | Outpatient (CLI) | payer MEDICARE, OTHER, SELFPAY ==
[2019-08-17 09:06] VITALS: BMI 32.9
--- NOTE | 2019-09-24 07:54 | CT_ITS ---
STUDY: CT MAXILLOFACIAL SINUSES REASON FOR EXAM: Female, 69 years old. LEFT FACIAL PAIN RADIATION DOSAGE (If Supplied By Facility): CTDIvol = ( 33.06 ) mGy, DLP = ( 817.332 ) mGycm TECHNIQUE: The patient was scanned in a multi detector CT scanner. High resolution axial imaging was performed without the administration of intravenous contrast material. Sagittal and coronal images were reconstructed. Individualized dose optimization techniques were used for this CT. COMPARISON: None. FINDINGS: FRONTAL SINUSES: Normal aeration, without mucosal inflammatory disease. ETHMOIDAL SINUSES: Normal aeration, without mucosal inflammatory disease. MAXILLARY SINUSES: Mucous retention cyst or polyp in the floor the right max exercise. SPHENOIDAL SINUSES: Normal aeration, without mucosal inflammatory disease. There is patency of the bilateral maxillary infundibuli with normal uncinate processes, ethmoid bullae, and hiatus semilunaris. Normal bilateral middle turbinates. Normal bilateral inferior turbinates. Normal midline nasal septum. There is patency of the bilateral nasal airways. The visualized osseous structures are normal. The visualized bilateral orbital contents are normal. CT/Sinus/Facial Bone IMPRESSION: Mucous retention cyst or polyp in the floor the right x-ray sinus. Electronically Signed: Manuel Rice MD at 13:23 EST Tel , Service support ,
== END ==
PROVIDERS: PCP Family Medicine; Referring Provider Otolaryngology; Visit Provider Otolaryngology
DX: R51 Headache (principal); J32.9 Chronic sinusitis, unspecified; R44.2 Other hallucinations
CPT/HCPCS: 70486

== ENCOUNTER → 2019-10-08 14:51 | Outpatient (CLI) | payer MEDICARE, OTHER, SELFPAY ==
[2019-08-17 09:06] VITALS: BMI 32.9
[2019-10-08 17:49] LABS: ALB/GLOB Ratio 1.4 RATIO (0.9-2.4); AST(SGOT) 37 U/L (15-37); Alanine Aminotransfer ALT/SGPT 51 U/L (13-56); Albumin, Serum 4.2 g/dL (3.2-5.0); Alkaline Phosphatase 74 U/L (45-117); Anion Gap 7 (5-15); BUN 17 mg/dL (7-18); BUN/Creat Ratio 20.8 RATIO (10-20); Calcium,Total 9.4 mg/dL (8.5-10.1); Chloride 108 mmol/L (98-107); Creatinine, Serum 0.82 mg/dL (0.55-1.02); EST Glomerular Filtration Rate 74 mL/min (>60); Est Glom Filt Rate - Afr Amer 89 mL/min (>60); Estradiol 16.6 pg/mL; Ferritin 59 ng/mL (8-252); Free T3 2.1 pg/mL (2.18-3.98); Globulin 3.1 g/dL (2.2-4.2); Glucose 130 mg/dL (74-106); Iron 98 ug/dL (50-170); Protein, Total 7.3 g/dL (6.4-8.2); Sodium Level 141 mmol/L (136-145); T4 Free Direct 1.19 ng/dL (0.76-1.46); Thyroid Stim Hormone (TSH) 1.58 uIU/mL (0.358-3.74)
[2019-10-09 10:20] LABS: Vitamin B12 370 pg/mL (211-911)
[2019-10-11 08:03] LABS: Vitamin D,25 Hydroxy 33.1 ng/mL
[2019-10-11 11:36] LABS: Progesterone Level < 0.21 ng/mL (See Comment)
== END ==
PROVIDERS: PCP Family Medicine; Visit Provider Family Medicine
DX: E11.9 Type 2 diabetes mellitus without complications (principal); E03.9 Hypothyroidism, unspecified; D64.9 Anemia, unspecified; E55.9 Vitamin D deficiency, unspecified; R53.83 Other fatigue
CPT/HCPCS: 36415; 80053; 82306; 82607; 82670; 82728; 83540; 84144; 84439; 84443; 84481

== ENCOUNTER → 2019-10-16 07:48 | Outpatient (CLI) | payer MEDICARE, OTHER, SELFPAY ==
[2019-08-17 09:06] VITALS: BMI 32.9
--- NOTE | 2019-10-16 07:50 | NM_ITS ---
CLINICAL: 68-year-old female with history of right hemipelvis pain. LIMITED 99m Tc MDP THREE PHASE BONE SCINTIGRAPHY COMPARISON: Previous three-phase limited pelvis bone scintigraphy study dated 04/21/2019 FINDINGS: Following the intravenous administration of 26.0 mCi of 99m Tc MDP, three-phase bone acquisitions of the pelvis reveal: 1. The flow and immediate static blood pool acquisitions demonstrate normal arterial and venous phase distribution of the radiopharmaceutical to the bilateral hemipelvis. 2. Delayed images depict persistent increased tracer concentration identified in the right iliac crest and meggan-osseous soft tissues. 3. Enhanced tracer concentration is presently visualized in the fifth lumbar vertebra posteriorly on the left. 4. The remaining limited skeletal structures are scintigraphically unremarkable. NM/Bone Scan Three Phase IMPRESSION: 1. The increase in radiopharmaceutical concentration identified in the right iliac crest and meggan-osseous soft tissue remains consistent with heterotropic bone formation and soft tissue dystrophic calcification. 2. Degenerative is presently expressed in the fifth lumbar vertebra. 3. Overall compared to the previous three-phase bone scintigraphy study dated 04/21/2019, there is no significant interval change. Electronically Signed: Manuel Jacob DO at 23:28 EDT Tel , Service support ,
== END ==
PROVIDERS: PCP Family Medicine; Referring Provider Orthopaedic Surgery; Visit Provider Orthopaedic Surgery
DX: R22.41 Localized swelling, mass and lump, right lower limb (principal); M79.89 Other specified soft tissue disorders; M16.11 Unilateral primary osteoarthritis, right hip
CPT/HCPCS: 78315

== ENCOUNTER → 2020-02-26 08:55 | Outpatient (CLI) | payer MEDICARE, OTHER, SELFPAY ==
[2020-01-14 11:02] VITALS: BMI 35.3
[2020-02-26 13:21] LABS: AST(SGOT) 32 U/L (15-37); Alanine Aminotransfer ALT/SGPT 41 U/L (13-56); Albumin, Serum 4.1 g/dL (3.2-5.0); Alkaline Phosphatase 78 U/L (45-117); Bilirubin, Direct 0.13 mg/dL (0.00-0.30); Cholesterol 135 mg/dL (200); High Density Lipoprotein 37 mg/dL; Protein, Total 7.1 g/dL (6.4-8.2); Triglycerides 304 mg/dL; Very Low Density Lipoprotein 61 mg/dL (5-40)
== END ==
PROVIDERS: PCP Family Medicine; Visit Provider Physician Assistant Medical
DX: E78.5 Hyperlipidemia, unspecified (principal)
CPT/HCPCS: 36415; 80061; 80076

== ENCOUNTER → 2020-04-01 11:29 | Outpatient (CLI) | payer MEDICARE, OTHER, SELFPAY ==
[2020-01-14 11:02] VITALS: BMI 35.3
== END ==
PROVIDERS: PCP Family Medicine; Referring Provider Nurse Practitioner Adult Health; Visit Provider Nurse Practitioner Adult Health
DX: N39.0 Urinary tract infection, site not specified (principal)
CPT/HCPCS: 87077; 87086; 87088; 87186

== ENCOUNTER → 2020-04-28 08:27 | Outpatient (CLI) | payer MEDICARE, OTHER, SELFPAY ==
[2020-04-06 09:33] VITALS: BMI 35.3
--- NOTE | 2020-04-28 08:30 | BI_ITS ---
MAMMOGRAPHY - BILATERAL SCREENING REASON FOR EXAM: Female, 69 years old. Routine annual screening examination. PERTINENT HISTORY: Non-contributory. TECHNIQUE: Digital bilateral breast elan (3D mammographic acquisition) in the CC and MLO projections. 2-D mediolateral oblique (MLO) and craniocaudad (CC) views of both breasts were obtained. CAD: Full Field Digital Mammography with Computer Added Detection was performed. COMPARISON: Comparison is made with prior study dated 10/22/2018 and 07/12/2015. FINDINGS: Breast Composition: The breasts are heterogeneously dense, which may obscure small masses. There are no dominant masses or suspicious calcifications. Stable benign-appearing bilateral axillary lymph nodes. No other significant abnormalities are identified. There has been no significant change since the prior study. BI/SCREEN MAMM (CAD) W/ELAN BILAT IMPRESSION: Stable bilateral screening mammogram. Yearly follow-up mammogram recommended. (A) ASSESSMENT CATEGORY: BIRADS Category 2: Benign. A letter regarding these results will be sent to the patient by the facility within 30 days. Approximately 10% of breast cancers are not detected by mammography. A normal mammogram should not delay biopsy of a clinically suspicious abnormality. [id number] Electronically Signed: Zachary Taylor, at 9:21 EDT , Service support ,
== END ==
PROVIDERS: PCP Family Medicine; Referring Provider Nurse Practitioner Women's Health; Visit Provider Nurse Practitioner Women's Health
DX: Z12.31 Encounter for screening mammogram for malignant neoplasm of breast (principal)
CPT/HCPCS: 77063; 77067

== ENCOUNTER → 2020-06-14 06:04 | Outpatient (CLI) | payer MEDICARE, OTHER, SELFPAY ==
[2020-05-26 13:10] VITALS: BMI 35.1
--- NOTE | 2020-06-14 10:48 | STRESSREP ---
Stress Test Report Pharmacologic myocardial perfusion stress test. 69-year-old lady with a history of previous angioplasty and stenting of the circumflex artery and LAD. Stress protocol: Resting KG demonstrates normal sinus rhythm with a rate of 93 bpm normal intervals are noted resting blood pressure is 142/80 mmHg. 0.4 mg of regadenoson was infused per usual protocol followed by rapid intravenous saline flush injection continuous EKG monitoring was performed. The patient maintained sinus rhythm throughout the recording. The maximum heart rate attained was 130 bpm which was 86% of max impacted heart rate the maximum workload was 1 metabolic equivalent. At rest there were no ST or T wave changes noted to suggest abnormal flow reserve at peak infusion nonspecific ST changes were noted. The final blood pressure was 140/72 mmHg. The patient did experienced mild chest discomfort throughout the test infusion. Myocardial perfusion protocol. 11.4 mCi of technetium 99m sestamibi was injected at rest. 0.4 mg of regadenoson was infused per usual protocol. At peak infusion 31.1 mCi of technetium 99m sestamibi was injected stress images were obtained stress and rest images were reconstructed and compared in the short axis vertical long horizontal long axis. Gated images were also obtained Perfusion SPECT analysis: Review of the stress images demonstrate normal uptake of tracer noted in all areas of the myocardium the resting images similarly demonstrate normal uptake of tracer noted in all areas of the myocardium. No reversibility is noted to suggest ischemia no previous infarct is noted. Gated SPECT analysis: The gated ejection fraction is 86%. Conclusion: Normal pharmacologic myocardial perfusion stress test. Preserved ejection fraction. Chest discomfort of unknown significance.
== END ==
PROVIDERS: PCP Family Medicine; Referring Provider Nurse Practitioner Family; Visit Provider Nurse Practitioner Family
DX: R07.9 Chest pain, unspecified (principal); I25.10 Atherosclerotic heart disease of native coronary artery without angina pectoris; I10 Essential (primary) hypertension; E78.5 Hyperlipidemia, unspecified; Z95.5 Presence of coronary angioplasty implant and graft
CPT/HCPCS: 78452; 93017; A9500; A4216; J2785

== ENCOUNTER 2020-06-18 07:59 | Day surgery (SDC) | payer MEDICARE, OTHER, SELFPAY ==
[2020-05-26 13:10] VITALS: BMI 35.1
--- NOTE | 2020-06-17 12:15 | RAD_ITS ---
STUDY: X-RAY CHEST REASON FOR EXAM: Female, 69 years old. chest pain, shortness of breath, CAD, having heart cath tomorrow TECHNIQUE: PA and lateral views of the chest. COMPARISON: 01/06/2019 FINDINGS: The lungs are clear and expanded. No change in left-sided pleural thickening. Normal size heart. Normal mediastinum and minerva. Normal visualized pulmonary arteries. Normal visualized aortic arch and descending thoracic aorta. Normal visualized thoracic spine. Normal visualized ribs, clavicles, and shoulders. There is no demonstrated abnormality of the visualized soft tissue structures of the upper abdomen. RAD/Chest PA and Lateral IMPRESSION: No change from 01/06/2019 Electronically Signed: Manuel Rice MD at 17:07 EST Tel , Service support ,
[2020-06-17 12:38] LABS: Absolute Lymphocyte Count 1.11 X10^3/uL (0.83-4.51); Absolute Neutrophil Count 4.8 X10^3/uL (2.0-7.7); Basophil# 0.04 X10^3/uL; Basophil% 0.6 % (0-1); Eosinophil# 0.18 X10^3/uL; Eosinophils% 2.7 % (0-5); Hematocrit 42.2 % (37-47); Hemoglobin 14.1 g/dL (12.0-15.0); Lymphocyte # 1.11 X10^3/ul (4.0); Lymphocyte % 16.3 % (19-41); Mean Corp Hgb Conc 33.4 g/dL (32-36); Mean Corpuscular Volume 89.8 fL (81-99); Mean Platelet Vol. 9.9 fl (6.2-12.0); Monocyte# 0.68 X10^3/uL; NRBC Flagged by Analyzer 0 % (0-5); Neutrophil # 4.75 X10^3/uL (2.7-7.7); Platelet Count 250 K/mm3 (150-450); RBC Distribution Width CV 12.9 % (11.6-14.6); RBC Distribution Width SD 42.1 fl (35.1-43.9); White Blood Count 6.8 K/mm3 (4.4-11.0)
[2020-06-17 12:57] LABS: Anion Gap 6 (5-15); BUN 17 mg/dL (7-18); BUN/Creat Ratio 20.6 RATIO (10-20); Calcium,Total 9.6 mg/dL (8.5-10.1); Chloride 108 mmol/L (98-107); Creatinine, Serum 0.83 mg/dL (0.55-1.02); EST Glomerular Filtration Rate 73 mL/min (>60); Est Glom Filt Rate - Afr Amer 88 mL/min (>60); Glucose 191 mg/dL (74-106); Potassium 4.1 mmol/L (3.5-5.1); Sodium Level 139 mmol/L (136-145)
[2020-06-17 13:56] VITALS: BMI 35.1
[2020-06-18] VITALS (8 sets, daily range): BP systolic 107–144; BP diastolic 63–88; PULSE 77–97; RESP 15–18; TEMP 36.6–37.1; O2SAT 95–96; BMI 35.3; BMI 95.3
--- NOTE | 2020-06-18 09:00 | HP_ITS ---
HPI HPI History of Present Illness Details: KORIN HARPER, is a 69 F who presents to the office today for a cardiovascular outpatient follow-up. Patient has a history of coronary artery disease status status post drug-eluting stent to LCx and LAD in April 2007, hypertension, and hyperlipidemia. She completed orthopedic surgery without known cardiac issues. She is currently undergoing PT. She states noting left neck pain for the last two months. She questions if this muscle related. This can be associated with headaches. She states two weeks ago she noted while loading her camper she noted center chest pain. This resolved on its own. She then noted last week while walking to [place] (200 feet) she noted center chest pain. This improved with rest. She rated this pain a 9/10. This pain lasted for approximately 10 minutes. This may have radiated to left upper chest/shoulder region. She does note intermittent nausea. She states ongoing chest heaviness that is unchanged during PT. She states her blood pressure has been slightly more elevated than usual. Pt denies symptoms of CHF, palpitations, lightheadedness, dizziness, near syncopal or syncopal episodes. Pt denies edema or claudication issues. Pt. denies orthopnea, PND, fever, chills, cough, blood in urine, blood in stool, myalgia, or epistaxis. She has been less active d/t hip surgery. Intake Vital Signs 05/26/20 Height 5 ft 1 in 05/26/20 Weight: 186 lb 05/26/20 BP 150/85 H 05/26/20 Blood Pressure Location Lt brachial 05/26/20 Position Sitting 05/26/20 Respiration 18 05/26/20 Pulse 76 05/26/20 Pulse Source Monitor 05/26/20 Pulse Oximetry (%) 97 Intake Visit Reasons: CP, left side neck pain, nausea Emissions Engineer Required: No Is patient in pain?: No Allergies hydrocodone bitartrate [From Vicodin] Allergy (Verified 05/26/20 12:57) Itching Iodinated Contrast Media Allergy (Verified 05/26/20 12:57) Anaphylaxis codeine Adverse Reaction (Severe, Verified 05/26/20 12:57) Unknown esomeprazole [From Nexium] Adverse Reaction (Severe, Verified 05/26/20 12:57) Causes elevated LFTs Sulfa (Sulfonamide Antibiotics) Adverse Reaction (Severe, Verified 05/26/20 12:57) Causes elevated LFTs levofloxacin [From Levaquin] Adverse Reaction (Verified 05/26/20 12:57) Nausea/Vom/Diarrhea Niacin Preparations Adverse Reaction (Verified 05/26/20 12:57) Other Medications Levothyroxine [Synthroid] 100 mcg PO DAILY 05/19/14 [History Confirmed 05/26/20] aspirin 81 mg tablet,delayed release 81 mg PO QDAY 08/23/17 [History Confirmed 05/26/20] nitroglycerin 0.4 mg sublingual tablet 0.4 mg SUBLINGUAL Q5-15M PRN #25 tab 08/31/17 [Rx Confirmed 05/26/20] metformin 500 mg tablet,extended release 24 hr 500 mg PO BID tab 09/10/17 [History Confirmed 05/26/20] glipizide 2.5 mg tablet, extended release 24 hr 2.5 mg PO DAILY 09/16/18 [History Confirmed 05/26/20] nabumetone 750 mg tablet 750 mg PO BID 09/16/18 [History Confirmed 05/26/20] omeprazole 10 mg capsule,delayed release 40 mg PO DAILY 09/16/18 [History Confirmed 05/26/20] estradiol 1 g VAGINAL QWEEK 09/18/18 [History Confirmed 05/26/20] methenamine hippurate 1 gram tablet 1 g PO BID 09/18/18 [History Confirmed 05/26/20] omega-3 fatty acids 1,000 mg capsule 1,000 mg PO DAILY 09/18/18 [History Confirmed 05/26/20] ipratropium bromide 0.03 % nasal spray 2 spray INTRANASAL BID 05/29/19 [History Confirmed 05/26/20] amlodipine 5 mg tablet 5 mg PO DAILY #90 tab 12/08/19 [Rx Confirmed 05/26/20] gabapentin 300 mg capsule 300 mg PO TID 01/14/20 [History Confirmed 05/26/20] rosuvastatin 20 mg tablet 20 mg PO QHS #90 tab 02/09/20 [Rx Confirmed 05/26/20] calcium carb-Ca gluc 500 mg calcium-magnesium ox-Mg gluc 250 mg tablet tab PO 04/06/20 [History Confirmed 05/26/20] cholecalciferol (vitamin D3) 50 mcg (2,000 unit) capsule 50 mcg PO DAILY 04/06/20 [History Confirmed 05/26/20] colestipol 1 gram tablet 1 g PO BID tab 04/06/20 [History Confirmed 05/26/20] mecobalamin (vitamin B12) 1,000 mcg chewable tablet 1,000 mcg PO DAILY 04/06/20 [History Confirmed 05/26/20] metoprolol tartrate 100 mg tablet 100 mg PO BID #180 tab 04/26/20 [Rx Confirmed 05/26/20] [facility] Medical History (Updated 04/06/20 @ 09:13 by Martha Stewart AND DRYING SUPERVISOR COOKING CASING, AND DRYING SUPERVISOR COOKING CASING-C) Atherosclerosis of coronary artery of [place] heart without angina pectoris (Chronic) Essential (primary) hypertension (Chronic) Hyperlipidemia (Chronic) Abnormal biliary HIDA scan (Chronic) Arthritis (Chronic) Back pain (Chronic) Dermatitis due to sun (Chronic) Diabetes mellitus (Chronic) History of Velazquez's esophagus (Chronic) History of NH (myocardial infarction) (Chronic) Hypothyroidism (Chronic) Leg edema (Chronic) Leg pain (Chronic) Lumbar disc disease (Chronic) Premature ventricular contractions (Chronic) Abdominal pain (Resolved) Chest pain (Resolved) Cough (Resolved) Diarrhea (Resolved) Dizziness (Resolved) Dyspnea, unspecified (Resolved) Syncope and collapse (Resolved) Surgical History (Updated 04/06/20 @ 09:01 by Isabella Carrington) History of coronary artery stent placement (Chronic 05/07/07) History of hip surgery (Acute) Status post tendon reattachment (Acute) History of bilateral cataract extraction (Resolved) History of carpal tunnel release of both wrists (Resolved) History of foot surgery (Resolved) History of knee replacement (Resolved) History of left heart catheterization (Resolved 06/04/12) back injection (Resolved) Family History Mother Diabetes Heart disease Social History (Updated 05/26/20 @ 13:47 by Jose De Jesus Mendez AND DRYING SUPERVISOR COOKING CASING, AND DRYING SUPERVISOR COOKING CASING-C) Smoking Status: Never smoker alcohol intake: current alcohol intake frequency: holidays/special occasions only Alcohol type: wine substance use type: does not use caffeine: Yes Type: coffee Number of servings: 1 what type of physical activity do you participate in: none seatbelt use: always do you feel safe at home: Yes additional social history: -Terry Patient is retired ROS Const Const: Negative for fatigue, weakness, body ache, fever(s) or chills ENT ENT: Negative for dizziness Cardio Chest Pain: Yes Palpitations: No Edema: None Muscle aches with walking: None Resp Respiratory: Negative for SOB with activity, SOB at rest, SOB orthopnea\SOB lying down or paroxysmal nocturnal dyspnea GI GI: Negative nausea, vomiting blood/hematemesis, bright, red blood in stools or black,tarry stools : Negative for hematuria or frequent nighttime urination/ nocturia Musc Musc: Negative for muscle aches/ myalgia Skin Skin: Negative non-healing lesions or rash Neuro Neuro: Negative for dizziness, lightheadedness, near syncope, syncope, orthostatic symptoms or weakness Endo Endo: Negative for fatigue Allergy Allergy/Immunology: Negative for rash Cardiology Exam Const Appearance: cooperative, healthy appearing, comfortable and no acute distress Nutritional Appearance: well nourished and obese Orientation: alert, awake and oriented x3 Head Head: normal to inspection Ears: hearing grossly normal bilaterally Nose: external nose normal Face and Sinus: face symmetric Mouth: oral mucosae normal Eyes General: appearance normal, both eyes and all related structures Eyelids: eyelids normal EOM: EOM intact bilaterally Neck Neck: normal visual inspection and no JVD Carotids: normal carotid upstroke Chest Chest inspection: normal inspection of the chest, symmetric chest movement and normal respiratory effort; negative cough Auscultation: Bilateral: Clear to Auscultation Cardio Palpation: normal PMI Rate: regular rate Rhythm: regular rhythm Heart sounds: S1 normal and S2 normal; negative rub, gallop or murmur GI GI: normal to inspection and obese Neuro General: alert, awake, oriented x3 and CN's II-XI intact bilaterally Skin Skin: no rashes or lesions noted Extremities Pulses: Normal: Right Posterior Tibial Pulse, Left Posterior Tibial Pulse, Right Radial Pulse, Left Radial Pulse Lower Extremity Edema: None: Bilateral Psych Psychological: normal affect Assessment & Plan 1. Atherosclerosis of [place] coronary artery of [place] heart without angina pectoris I25.10 PCI-CYRIL-Mid LCx w/ 3.0 x 18 mm Cypher Stent, BMS-Ramus w/ 2.25 x 12 mm Multi Link Vision Stent, CYRIL-Mid LAD w/ 2.5 x 18 mm Cypher Stent, POBA-D2 05/07/2007 Plan Patient does acknowledge symptoms concerning for progressive coronary artery disease. Her EKG today in office shows sinus rhythm at a rate of 83 bpm, QTC 394, and a QRS of 82. There are no acute ST or T wave changes noted. She will proceed with outpatient stress test. She does acknowledge recent hip surgery and difficulty ambulating. Thus, she will proceed with chemical nuclear stress test. If her stress test is considered to be negative, we we will increase her amlodipine to 5 mg p.o. twice daily or 10 mg p.o. daily to assist with higher blood pressure and chest discomfort. She was asked to keep her August 2020 appointment regarding overall symptoms. At that time, we can reconsider further testing or evaluation if indicated. Orders Orders: 12 Lead EKG performed by BMS Today Nuclear Stress Test - Chemical Today 2. History of coronary artery stent placement Z95.5 PCI-CYRIL-Mid LCx w/ 3.0 x 18 mm Cypher Stent, BMS-Ramus w/ 2.25 x 12 mm Multi Link Vision Stent, CYRIL-Mid LAD w/ 2.5 x 18 mm Cypher Stent, POBA-D2 05/07/2007 Plan She will continue current medical therapy. She will continue risk factor lifestyle modification. She will continue with current treatment plan as outlined above. Orders Orders: 12 Lead EKG performed by BMS Today Nuclear Stress Test - Chemical Today 3. Essential hypertension I10 Plan Her blood pressure slight elevated today in office. Based on results of her stress test, further medication adjustment will be recommended such as increasing her amlodipine. Orders Orders: Nuclear Stress Test - Chemical Today 4. Hyperlipidemia, unspecified hyperlipidemia type E78.5 Plan Lipid panel from 02/26/2020 showed Cholesterol: 135, HDL: 37, LDL: 37, and Triglycerides: 304. She will continue with diabetic control. She will continue with current statin medication. Orders Orders: Nuclear Stress Test - Chemical Today Plan Detail Other Orders Orders: Nuclear Stress Test - Chemical Today R07.9 Additional Comments Thank you for allowing us to participate in the patients plan of care, if you have any questions please do not hesitate to call. This note was generated using a voice recognition system and there may be incorrect words, spelling or punctuation that were not noted when reviewing the office note prior to saving. Coding Level of Care Code Off vis,est,level 4 Diagnoses Atherosclerosis of [place] coronary artery of [place] heart without angina pectoris I25.10 ??Coronary Disease-Associated Artery/Lesion type: [place] artery History of coronary artery stent placement Z95.5 Essential hypertension I10 Hyperlipidemia, unspecified hyperlipidemia type E78.5 ??Hyperlipidemia type: unspecified Coding Level of Care Code Off vis,est,level 4 Diagnoses Atherosclerosis of [place] coronary artery of [place] heart without angina pectoris I25.10 ??Coronary Disease-Associated Artery/Lesion type: [place] artery History of coronary artery stent placement Z95.5 Essential hypertension I10 Hyperlipidemia, unspecified hyperlipidemia type E78.5 ??Hyperlipidemia type: unspecified Supplemental Info Supplemental Information Heart catheterization from 06/04/2012: Conclusions: 1. Normal left ventricular systolic function with an ejection fraction of 55%. 2. The left anterior descending artery with patent proximal stented segment with 10-20% long, tubular, mid stenosis. 3. The first diagonal 10-20% ostial stenosis with patent proximal percutaneous transluminal coronary angioplasty site. 4. The ramus intermedius with patent proximal stented segment. 5. Circumflex coronary artery with patent proximal stented segment. 6. Second obtuse marginal with 20-30% eccentric proximal stenosis. 7. Right coronary artery with 20-30% serial proximal stenosis. 8. Right posterior descending with 40-50% stenosis. Comments: Ms. Harper was found to have widely patent left anterior descending, diagonal, ramus intermedius, and circumflex/obtuse marginal with, at most, mild to moderate remaining disease. There were no lesions identified to explain her symptoms or ectopy on an ischemic basis. Echocardiogram from 05/31/2012: Interpretation summary Left ventricular systolic function is normal. The estimate ejection fraction is 60%. The left atrium is mildly enlarged. Mild (1+) mitral valve insufficiency. Mild (1+) tricuspid valve insufficiency. Mild (1+) aortic valve insufficiency. Trivial pulmonic valve insufficiency. Right ventricular systolic pressure estimated be 26 mmHg. Nuclear stress test from 09/25/2018: Conclusion: Normal pharmacologic myocardial perfusion stress test. Preserved ejection fraction. Labs LDL Cholesterol 37 mg/dL (0-130) 02/26/20 HDL Cholesterol 37 mg/dL (40-) L 02/26/20 Triglycerides 304 mg/dL (-199) H 02/26/20 VLDL Cholesterol 61 mg/dL (5-40) H 02/26/20 Diagnostics Electrocardiogram 08/31/17 Stress Test Nuclear Medicine 09/25/18 Stress Test 09/25/18 Chest X-Ray 01/06/19 Venous Doppler Study 05/06/19
--- NOTE | 2020-06-18 10:11 | CL.D_ITS ---
Patient Name: KORIN HARPER Study Date: 06/18/2020 Performing: Sekou Hebert MD Ht: 61.02 inches 155 cm : 1950 Wt: 185.19 lbs 84 kg Age: 69 Gender: female BSA: 1.83 PROCEDURE(S) PERFORMED CX01-ZPB/COR/LV [id number]-TWO W OR WO PTCA, SINGLE CORONARY ARTERY CLINICAL PROFILE AND INDICATIONS Indications: Suspected CAD Heart Failure: None Stress/Imaging Date: 06/14/2020Stress Test with SPECT MPI: NegativeStress/Image Study Performed: No CAD Presentations: Unstable angina. CONCLUSIONS High-grade right coronary artery lesion in the midsegment. Previously placed stents in the circumfle x artery and left anterior descending artery is patent. RECOMMENDATIONS Referred for immediate PCI DESCRIPTION OF PROCEDURE The patient arrived to the procedure lab. The risks and benefits of the procedure as well as a full d escription of our services here and current unavailability of surgical backup were fully explained to the patient and/or their significant other prior to the catheterization. The Timeout was completed, verifying the correct patient and procedure. The patient's procedural site was prepped and draped in the usual fashion. Local anesthetic was given subcutaneously to right radial region with Lidocaine 2% . Local anesthetic was given subcutaneously to right groin region with Lidocaine 2%. Using a modified Seldinger technique, arterial access was obtained via the right radial artery, a 6Fr sheath was inse rted., arterial access was obtained via the right femoral artery, a 6Fr sheath was inserted. Right C oronary Artery selective angiography was then performed in multiple views using a 5 Fr. 4.0 Bliss cat heter. Left Coronary Artery selective angiography was performed in multiple views using a 5 Fr. 4.0 Bliss catheter. CORONARY ANGIOGRAPHY DOMINANCE: Right Dominant LEFT HEART ASSESSMENT Left Ventricular Ejection Fraction: by LV Gram 60 % Normal LV wall motion Normal Left Ventricular systolic function LEFT MAIN: Angiographically normal LEFT ANTERIOR DESCENDING ARTERY: PROX LAD: Previously placed stent is patent DIAGONAL 1: Proximal - Previously placed stent has an instent 30 % restenosis CIRCUMFLEX ARTERY: PROX CIRC: Previously placed stent has an instent 20 % restenosis RIGHT CORONARY ARTERY: MID RCA: 95 % Stenosis COMPLICATIONS PROCEDURE MEDICATIONS Fentanyl 50 mcg IV Versed 1 mg IV Fentanyl 25 mcg IV Oxygen: 2 L/min via nasal cannula Benadryl 25 mg IV @ 06/18/2020 09:14:04 Heparin 6000 unit(s) IV 06/18/2020 09:54:32 Solu-cortef 100 mg IV 06/18/2020 09:14:14 SUMMARY OF HEMODYNAMIC DATA Time AIR REST ECG 08:19:38 AO 156/85 (117) SA 09:32:42 LV 153/4, 15 09:40:49 LV 140/4, 23 09:40:54 LV 154/11, 18 09:41:55 LVp 159/13, 18 09:42:10 AOp 152/75 (109) 09:42:15 Signed By Sekou Hebert MD On 06/18/2020 10:10:42 Sekou Hebert MD
--- NOTE | 2020-06-18 11:43 | CL.I_ITS ---
Patient Name: KORIN HARPER Study Date: 06/18/2020 Performing: Qi Berger MD Ht: 61.02 inches 155 cm : 1950 Wt: 185.19 lbs 84 kg Age: 69 Gender: female BSA: 1.83 PROCEDURE(S) PERFORMED [id number] W OR WO PTCA, SINGLE CORONARY ARTERY CLINICAL PROFILE AND CO-MORBIDITIES Indications: Suspected CAD Heart Failure: None Stress/Imaging Date: 06/14/2020 Stress Test with SPECT MPI: NegativeStress/Image Study Performed: No CAD Presentations: Unstable angina. CONCLUSIONS Successful PCI with CYRIL to mRCA RECOMMENDATIONS DESCRIPTION OF PROCEDURE The patient arrived to the procedure lab. The risks and benefits of the procedure as well as a full d escription of our services here and current unavailability of surgical backup were fully explained to the patient and/or their significant other prior to the catheterization. The Timeout was completed, verifying the correct patient and procedure. The patient's procedural site was prepped and draped in the usual fashion. Local anesthetic was given subcutaneously to right radial region with Lidocaine 2% . Local anesthetic was given subcutaneously to right groin region with Lidocaine 2% Using a modified Seldinger technique,arterial access was obtained via the right radial artery, a 6Fr sheath was insert ed., arterial access was obtained via the right femoral artery, a 6Fr sheath was inserted. Right [place] nary Artery selective angiography was then performed in multiple views using a 5 Fr. 4.0 Filer cathet er. Left Coronary Artery selective angiography was performed in multiple views using a 5 Fr. 4.0 Filer catheter.The images were reviewed and options discussed. A decision was then made to pr oceed with an Intervention, IVUS or other adjunct procedure. JR4 Guide catheter was inserted and engaged into the RCA. JR4 Guide catheter was inserted and eng aged into the RCA. Angiogram performed pre balloon dilatation. BMW Guide wire was advanced to the RCA . 2.5 x 12 Emerge Balloon catheter was advanced across lesion in the right coronary, mid. PTCA balloo n inflated at 12 atms for 19 secs. Angiogram performed post balloon dilatation. 3.0 x 16 Synergy Drug Eluting stent was advanced across the lesion in the right coronary, mid. Angiogram performed post st ent deployment. The arterial sheath was pulled and a TR Band was applied for hemostasis INTERVENTION INFORMATION LESION SITE: RCA (Mid) Lesion Complexity: High/C, chronic total occlusion: No, lesion at bifurcation: Yes, thrombus present: No, lesion length: 10 mm, culprit lesion: Yes, Previously treated lesion: No Pre Stenosis: 95 % Pre intervention HENRY flow: 3 PROCEDURE: Drug Eluting Stent with pre dilatation. Post Stenosis: 0 % Post intervention HENRY flow: 3 Lesion Devices: Medtronic 6 Fr JR4.0 100cm Guide Catheter Munoz .014 BMW [place] Straight 190cm Brice Sci EMERGE MR 2.50x12 BALLOON Brice Sci Synergy MR CYRIL 3.00x16 COMPLICATIONS No Complications PROCEDURE MEDICATIONS Fentanyl 50 mcg IV Versed 1 mg IV Fentanyl 25 mcg IV Oxygen: 2 L/min via nasal cannula Benadryl 25 mg IV @ 06/18/2020 09:14:04 Heparin 6000 unit(s) IV 06/18/2020 09:54:32 Solu-cortef 100 mg IV 06/18/2020 09:14:14 IV Bolus: .9 NaCl 250 ml total 06/18/2020 10:43:32 SUMMARY OF HEMODYNAMIC DATA Time AIR REST ECG 08:19:38 AO 156/85 (117) SA 09:32:42 LV 153/4, 15 09:40:49 LV 140/4, 23 09:40:54 LV 154/11, 18 09:41:55 LVp 159/13, 18 09:42:10 AOp 152/75 (109) 09:42:15 RM AIR REST 10:10:51 AIR REST AO 149/72 (104) 10:15:09 Signed By Qi Berger MD On 06/18/2020 11:42:41 AM Qi Berger MD
--- NOTE | 2020-06-18 13:13 | CRPHASE1 ---
Patient Communication Former Patient:: Phase I PHII Cardiac Rehab Discussed with Patient:: Yes Guide to Cardiac Rehab Given to Patient:: Yes Cardiac Rehab Facility Choice List Given to Patient:: Yes Choice Program [facility][NOTE 3] PHII:: Communication Given to CR Choice Program Other:: Communication Given to CR Rehab Care Assistant:: Amarilys Berger Sessions:: 36 sessions - 3 days/wk, 12 weeks - pt was in CR before-does have limitiations on equipment d/t hip issues Risk Factors/Lifestyle Smoking Status: Never smoker Second-Hand Smoke:: No Hx Hypertension: Yes Hx Diabetes Mellitus Type 1: No Hx Diabetes Mellitus Type 2: No Hx Metabolic Disorders: No Hx Dyslipidemia: Yes Hx Obesity: No ETOH: No Caffeine: No Substance Abuse: No Family History: Family History (Last Reviewed 04/06/20 @ 09:00 by Isabella Carrington) Mother Diabetes Heart disease Cardiac Rehabilitation Info Cardiac Rehabilitation Program Information: Cardiac Rehabilitation is important for patients like you who are recovering from a heart problem. Cardiac rehabilitation programs are recognized as integral to the continued care of the patient with coronary heart disease. The cardiac rehabilitation program is designed to optimize a patient's physical, psychological, and social functioning. Health rn urgent care work in cardiac rehabilitation programs and assist you with getting the treatments you need to get stronger and healthier - like exercise, healthy eating habits, and medications. Cardiac rehabilitation has been show to help people with heart problems live longer and have better life enjoyment than people who do not go to cardiac rehabilitation. Please contact the Cardiac Rehabilitation Program at [facility] at in two weeks if you have not heard from them.
--- NOTE | 2020-06-18 13:16 | CRPH1.INSTRU ---
General Education CAD and cardiac anatomy and function:: Patient communicates acknowledgment Explanation of diagnoses and procedures:: Patient communicates acknowledgment Sign/Symptoms of [place]:: Patient communicates acknowledgment Antiplatelet therapy: Patient communicates acknowledgment Smoking Patient Nicotine/Smoking Risk Factors Are:: Non-smoker Dyslipidemia Patient Dyslipidemia Risk Factors Are:: Total Cholesterol, Triglycerides, HDL, LDL Recommendations Include:: Lipid profile not available, Reviewed NCEP/ATP guidelines, Therapeutic Lifestyle Change dietary guidelines Dyslipidemia Response Code:: Patient communicates acknowledgment Overweight/Obesity Patient Overweight/Obesity Risk Factors Are:: Obesity - > or = 30 Recommendations Include:: Weight loss of 5-10%, Reduced calorie diet, Exercise 5-7 times/week Overweight/Obesity:: Patient communicates acknowledgment Hypertension Recommendations Include:: Maintain BP <130/85, DASH dietary guidelines, Decrease/maintain normal body weight, Moderation of ETOH Hypertension:: Patient communicates acknowledgment Heart Disease Patient Heart Disease Risk Factors Are:: Previous cardiac event Recommendations Include:: Educated family members of their risk Heart Disease Response Code:: Patient communicates acknowledgment Diabetes Patient Diabetes Risk Factors Are:: No documented hx of diabetes Sedentary Patient Sedentary Risk Factors Are:: Lack of regular exercise Recommendations Include:: Aerobic exercise 5-7 times/week for 20-30 minutes continuously, Benefits of regular exercise, Discussed home walking program, Monitored Outpatient Cardiac Rehab Sedentary Response Code:: Patient communicates acknowledgment Stress Patient Stress Risk Factors Are:: Patient denies stress as a risk factor
[2020-06-18] MEDS: 0.9% Normal Saline 1,000 ML 100 ML IV (15:30)
[2020-06-18] MEDS: Gabapentin 300 MG Capsule PO ×2 (15:35→21:23)
--- NOTE | 2020-06-18 17:27 | NURSING ---
Bedrest completed. Pt ambulated and room. No signs of complications, bleeding or hematoma to cath site.
[2020-06-18] MEDS: Etodolac 300 MG Capsule PO (21:23)
[2020-06-18] MEDS: Metoprolol Tartrate 100 MG Tablet PO (21:23)
[2020-06-18] MEDS: Methenamine Hippurate 1 GM Tablet PO (21:23)
[2020-06-18] MEDS: Atorvastatin Calcium 40 MG Tablet PO (21:23)
[2020-06-19] VITALS (8 sets, daily range): BP systolic 133–142; BP diastolic 71–75; PULSE 71–77; RESP 15–16; TEMP 36.8–37.2; O2SAT 96–97
[2020-06-19] MEDS: Levothyroxine 100 MCG Tablet PO (06:26)
[2020-06-19] MEDS: Gabapentin 300 MG Capsule PO (06:26)
[2020-06-19 08:24] LABS: Hemoglobin 13.1 g/dL (12.0-15.0); Mean Corp Hgb Conc 32.8 g/dL (32-36); Mean Corpuscular Hgb 29.8 pg (27.0-32.0); Mean Corpuscular Volume 91.1 fL (81-99); Mean Platelet Vol. 10.2 fl (6.2-12.0); Platelet Count 222 K/mm3 (150-450); RBC Distribution Width SD 43.4 fl (35.1-43.9); Red Blood Count 4.39 M/mm3 (4.2-5.4); White Blood Count 7.3 K/mm3 (4.4-11.0)
[2020-06-19 08:51] LABS: ALB/GLOB Ratio 1.2 RATIO (0.9-2.4); AST(SGOT) 33 U/L (15-37); Alanine Aminotransfer ALT/SGPT 39 U/L (13-56); Albumin, Serum 3.7 g/dL (3.2-5.0); Alkaline Phosphatase 80 U/L (45-117); Anion Gap 5 (5-15); BUN 17 mg/dL (7-18); BUN/Creat Ratio 23.2 RATIO (10-20); Chloride 108 mmol/L (98-107); Creatinine, Serum 0.73 mg/dL (0.55-1.02); EST Glomerular Filtration Rate 83 mL/min (>60); Est Glom Filt Rate - Afr Amer 101 mL/min (>60); Estimated Creatinine Clearance 40.07 ml/min; Glucose 138 mg/dL (74-106); Potassium 4.1 mmol/L (3.5-5.1); Protein, Total 6.7 g/dL (6.4-8.2); Sodium Level 141 mmol/L (136-145)
[2020-06-19] MEDS: Metoprolol Tartrate 100 MG Tablet PO (09:20)
[2020-06-19] MEDS: Clopidogrel Bisulfate 75 MG Tablet PO (09:20)
[2020-06-19] MEDS: Methenamine Hippurate 1 GM Tablet PO (09:20)
[2020-06-19] MEDS: Omega-3 Acid Ethyl Esters 1 GM Capsule PO (09:20)
[2020-06-19] MEDS: Aspirin E.C. 81 MG Tablet PO (09:20)
[2020-06-19] MEDS: amLODIPine 5 MG Tablet PO (09:20)
[2020-06-19] MEDS: Pantoprazole Sodium 40 MG Tablet PO (09:20)
[2020-06-19] MEDS: Etodolac 300 MG Capsule PO (09:21)
--- NOTE | 2020-06-19 10:00 | EKG12_ITS ---
Test Reason : AM Blood Pressure : / mmHG Vent. Rate : 073 BPM Atrial Rate : 073 BPM P-R Int : 150 ms QRS Dur : 076 ms QT Int : 390 ms P-R-T Axes : 065 -37 -22 degrees QTc Int : 429 ms Normal sinus rhythm Left axis deviation Inferior infarct , age undetermined Abnormal ECG When compared with ECG of 18-JUN-2020 11:28, MANUAL COMPARISON REQUIRED, DATA IS UNCONFIRMED Confirmed by FABIO SANDERS, SEKOU ([id number]), newspaper managing editor IRIS SEO ([id number]) on 06/22/2020 9:38:51 AM Referred By: Sekou Hebert Confirmed By:SEKOU HEBERT MD
--- NOTE | 2020-06-19 10:01 | PCM.PN.CARD ---
Subjectve: Patient seen and evaluated. She is to be doing well. No complaints. Arm a little sore. Objective: Vital Signs Temp Pulse Resp BP Pulse Ox 98.9 F 76 16 134/71 H 97 06/19/20 09:12 06/19/20 09:20 06/19/20 09:12 06/19/20 09:20 06/19/20 09:12 Oxygen Delivery Method Room Air Weight: 186 lb 15.232 oz Body Mass Index (BMI) 35.3 Intake and Output for Last 24 Hours 06/17/20 06/18/20 06/19/20 23:59 23:59 23:59 Intake Total 1250 / 1250 100 / 100 Balance 1250 / 1250 100 / 100 General: Awake, Alert, Oriented x 3 HEENT: PERRL, EOMI, Sclera Non Icteric Neck: Supple, Good ROM, No Lymph Node Enlargement Lungs: Clear to auscultation Cardiovascular: Regular Rhythm, Normal S1, Normal S2, No Murmurs, No Rubs, No Gallops 06/19/20 07:44: WBC 7.3, RBC 4.39, Hgb 13.1, Hct 40.0, MCV 91.1, MCH 29.8, MCHC 32.8, Plt Count 222, MPV 10.2 06/19/20 07:44: Sodium 141, Potassium 4.1, Chloride 108 H, Carbon Dioxide 28.0, Anion Gap 5, BUN 17, Creatinine 0.73, Est GFR (MDRD) Af Amer 101, Est GFR (MDRD) Non-Af 83, BUN/Creatinine Ratio 23.2 H, Glucose 138 H, Calcium 9.0, Total Bilirubin 0.60 Rhythm: EKG: ECHO: Stress Test: Cardiac Cath: PCI: CT Surgery: Holter monitor: EPS: PPM: CXR: Chest CT Scan: Medical Necessity - Tobacco Use Smoking Status: Never smoker Assessment/Plan 1. Status post angioplasty and stenting of the right coronary artery. Patient did well overnight. Her right arm is mildly swollen but no significant swelling noted groin looks intact. Patient will be discharged for outpatient follow-up in my office. In a month with a nurse practitioner.
--- NOTE | 2020-06-19 10:04 | PCM.DC ---
You will use the following diet at home:: Cardiac Discharge Activity: Return to Normal Activity Call your doctor if you observe: Shortness of breath, Dizziness, Fainting spells, Chest pain Allergies/Adverse Reactions: Allergies hydrocodone bitartrate [From Vicodin] Allergy (Verified 05/26/20 12:57) Itching Iodinated Contrast Media Allergy (Verified 05/26/20 12:57) Anaphylaxis codeine Adverse Reaction (Severe, Verified 05/26/20 12:57) Unknown esomeprazole [From Nexium] Adverse Reaction (Severe, Verified 05/26/20 12:57) Causes elevated LFTs Sulfa (Sulfonamide Antibiotics) Adverse Reaction (Severe, Verified 05/26/20 12:57) Causes elevated LFTs levofloxacin [From Levaquin] Adverse Reaction (Verified 05/26/20 12:57) Nausea/Vom/Diarrhea Niacin Preparations Adverse Reaction (Verified 05/26/20 12:57) Other Medications to take at Discharge Levothyroxine [Synthroid] 100 mcg PO DAILY 05/19/14 aspirin 81 mg tablet,delayed release 81 mg PO QDAY 08/23/17 metformin 500 mg tablet,extended release 24 hr 500 mg PO BID tab 09/10/17 glipizide 2.5 mg tablet, extended release 24 hr 2.5 mg PO DAILY 09/16/18 nabumetone 750 mg tablet 750 mg PO BID 09/16/18 omeprazole 10 mg capsule,delayed release 40 mg PO DAILY 09/16/18 estradiol 1 g VAGINAL QWEEK 09/18/18 methenamine hippurate 1 gram tablet 1 g PO BID 09/18/18 omega-3 fatty acids 1,000 mg capsule 1,000 mg PO DAILY 09/18/18 ipratropium bromide 0.03 % nasal spray 2 spray INTRANASAL BID 05/29/19 amlodipine 5 mg tablet 5 mg PO DAILY #90 tab 12/08/19 gabapentin 300 mg capsule 300 mg PO TID 01/14/20 rosuvastatin 20 mg tablet 20 mg PO QHS #90 tab 02/09/20 calcium carb-Ca gluc 500 mg calcium-magnesium ox-Mg gluc 250 mg tablet 2,000 mg PO DAILY 04/06/20 cholecalciferol (vitamin D3) 50 mcg (2,000 unit) capsule 50 mcg PO DAILY 04/06/20 colestipol 1 gram tablet 1 g PO BID tab 04/06/20 mecobalamin (vitamin B12) 1,000 mcg chewable tablet 1,000 mcg PO DAILY 04/06/20 metoprolol tartrate 100 mg tablet 100 mg PO BID #180 tab 04/26/20 nitroglycerin 0.4 mg sublingual tablet 0.4 mg SUBLINGUAL Q5-15M PRN #25 tab 06/16/20 clopidogrel 75 mg tablet 75 mg PO DAILY #30 tab 06/17/20 Orders to be completed after discharge: Phase II, Outpatient Cardiac Rehab Location: None Selected Primary Care Physician: Galina Tavarez DO [Primary Care Provider] - Please follow up with your Primary Care Physician in: 1 Week Test Results: Test results from this visit will be discussed in further detail at your follow-up appointment, if applicable. Please Follow Up With: Jose De Jesus Mendez NP, [facility] When: 4 Weeks Proposed Discharge Date: 06/19/20
== END 2020-06-19 10:05 | disposition home or self-care (01) ==
LOC: CLSP 08:01 → PCU 06-19 12:15
PROVIDERS: Specialist; PCP Family Medicine; Referring Provider Internal Medicine Cardiovascular Disease; Visit Provider Internal Medicine Cardiovascular Disease
DX: I25.110 Atherosclerotic heart disease of native coronary artery with unstable angina pectoris (principal); E78.5 Hyperlipidemia, unspecified; I10 Essential (primary) hypertension; I25.2 Old myocardial infarction; M19.90 Unspecified osteoarthritis, unspecified site; E11.9 Type 2 diabetes mellitus without complications; E03.9 Hypothyroidism, unspecified; Z95.5 Presence of coronary angioplasty implant and graft; Z79.899 Other long term (current) drug therapy; Z79.82 Long term (current) use of aspirin; Z79.84 Long term (current) use of oral hypoglycemic drugs; Z79.02 Long term (current) use of antithrombotics/antiplatelets
CPT/HCPCS: 36415; 71046; 80048; 80053; 85025; 85027; 92928; 93005; 93458; 99152; 99153; J7030; J7040; Q9967; A4216; C1725; C1760; C1769; C1874; C1887; C1894; C9600

== ENCOUNTER 2020-06-29 18:05 | Emergency (ER) | payer MEDICARE, OTHER, SELFPAY ==
[2020-06-18 14:57] VITALS: BMI 35.3
[2020-06-29 18:06] VITALS: BP 143/73; PULSE 73; RESP 17; TEMP 36; O2SAT 98; BMI 35.4
--- NOTE | 2020-06-29 18:08 | ED.RN ---
called for ekg at 1808.
--- NOTE | 2020-06-29 18:09 | ED.RN ---
ROSALINO DRAKE PHONE NUMBER [phone].
--- NOTE | 2020-06-29 18:25 | EKG12_ITS ---
Test Reason : REPEAT Blood Pressure : / mmHG Vent. Rate : 067 BPM Atrial Rate : 067 BPM P-R Int : 138 ms QRS Dur : 078 ms QT Int : 396 ms P-R-T Axes : 048 -45 003 degrees QTc Int : 418 ms Normal sinus rhythm Left anterior fascicular block Inferior infarct , age undetermined Abnormal ECG Confirmed by JOSHUA SANDERS, PHILLIP ([id number]), slot editor IRIS SEO ([id number]) on 06/30/2020 1:41:47 PM Referred By: GILMAR Confirmed By:CHEYENNE LEWIS MD
--- NOTE | 2020-06-29 18:25 | ED.DCSUM_ITS ---
History of Present Illness Chief Complaint: Chest Pain Informant: Patient Onset: Today Narrative: 69-year-old female presenting with chest pain. She states it started at about 3:00. She talked to her ornamental iron erector who had her check her blood pressure and take a nitroglycerin which did not seem to help. Patient does not have diaphoresis, lightheadedness, nausea. She does admit to pain that radiates up into her axilla and up the back of her neck. She also states that he has leg pain in her bilateral calves. Patient does not have history of DVT/PE but did recently have a cardiac stent placed on 06/14/2020. She states they went into her right femoral and her right arm. She had a high-grade lesion of the right main coronary artery which was stented. Previously placed stents of the proximal LAD showed 30% restenosis, circumflex artery showed previously stented area is has 20% restenosis. - Past Medical History (1) Atherosclerosis of coronary artery of [place] heart without angina pectoris Status: Chronic (2) History of coronary artery stent placement Status: Chronic Comment: PCI-CYRIL-Mid LCx w/ 3.0 x 18 mm Cypher Stent, BMS- Ramus w/ 2.25 x 12 mm Multi Link Vision Stent, CYRIL-Mid LAD w/ 2.5 x 18 mm Cypher Stent, POBA-D2 05/07/2007; PCI-CYRIL-Mid RCA 3.0 x 16 mm Synergy Stent 06/18/2020 (3) Essential (primary) hypertension Status: Chronic (4) Hyperlipidemia Status: Chronic Past Medical History - Allergies and Home Meds Allergies/Adverse Reactions: Allergies hydrocodone bitartrate [From Vicodin] Allergy (Verified 06/29/20 18:05) Itching Iodinated Contrast Media Allergy (Verified 06/29/20 18:05) Anaphylaxis codeine Adverse Reaction (Severe, Verified 06/29/20 18:05) Unknown esomeprazole [From Nexium] Adverse Reaction (Severe, Verified 06/29/20 18:05) Causes elevated LFTs Sulfa (Sulfonamide Antibiotics) Adverse Reaction (Severe, Verified 06/29/20 18:05) Causes elevated LFTs levofloxacin [From Levaquin] Adverse Reaction (Verified 06/29/20 18:05) Nausea/Vom/Diarrhea Niacin Preparations Adverse Reaction (Verified 06/29/20 18:05) Other Primary Care Physician: Galina Tavarez DO [Primary Care Provider] - Prior records reviewed: Yes Past Medical History: None - Reviewed in problem list Surgical History: - - Patient has a history of left total knee replacement, bilateral carpal tunnel release, bilateral cataract surgery, right shoulder surgery, right hand ganglion cyst excision, and left lower extremity vein procedure. The patient is a G3, P3 Ab0. Cardiac stent x3 Lives: Spouse/ Significant Other Smoking Status: Never smoker - Family History Paternal Family History: Family History (Last Reviewed 04/06/20 @ 09:00 by Isabella Carrington) Mother Diabetes Heart disease Family History: Reports: - - Patient's father at the age of 80 with a history of Parkinson's disease. Patient's mother is 95 years of age and generally healthy. Review of Systems General: Denies: Chills, Fever, Sweats Eyes: Denies: Visual changes - bilaterally, Diplopia ENT: Denies: Rhinorrhea, Sore throat Cardiovascular: Reports: Chest pain. Denies: Palpitations, Heart racing Respiratory: Denies: Dyspnea, Cough Gastrointestinal: Denies: Abdominal pain, Nausea, Vomiting, Diarrhea, Melena, Hematochezia Genitourinary: Denies: Dysuria, Hematuria, Frequency Musculoskeletal: Denies: Back pain, Extremity Pain Skin: Denies: Rash, Wounds Neurological: Denies: Headache, Weakness, Numbness Physical Exam Vital Signs/Narrative: Vital Signs Temp Pulse Resp BP Pulse Ox 06/29/20 18:06 96.8 F L 73 17 143/73 H 98 Inital Vital Signs reviewed: Yes General: Well nourished, No Acute Distress Head: Normocephalic, Atraumatic Eyes: Perrl, EOMI ENT: Moist mucous membranes, No rhinorrhea Cardiovascular: Regular rate, Regular rhythm Respiratory: No distress, CTA bilaterally, Chest nontender Back: - - There is tenderness to palpation of the medial scapular area which reproduces the pain she is feeling in her neck and in her axillary region. There is no ecchymosis or rash. No crepitance. Extremities: Calf Tenderness - Bilateral calf tenderness., -. Negative for: Edema Skin: Normal color, No rash Neurological: Alert, Oriented x3 Psychological: Normal affect, Normal Mood Diagnostic/Tx/Re-eval - Rhythm Strip Rhythm Strip: Sinus Rhythm Rate: 73 - EKG Initial EKG Interpretation: Sinus Rhythm, Non-Specific ST Changes Follow-up EKG Interpretation: Sinus Rhythm, No Acute Injury Pattern - Medical Decision Making She presents status post cath with stenting and patent stents with chest pain. She describes it as axillary and in her posterior neck. On examination palpation to her medial scapula does reproduce this pain. EKG is sinus rhythm without signs of ischemia x2. Troponin initially is negative. Chest x-ray is negative. Given her pain I did have concern for DVT but I did not check a D- dimer. Since she has leg pain I ultrasounded her legs and found no DVTs. She is not hypoxic, tachypneic, tachycardic, short of breath, and in addition to this she has anaphylaxis allergy to iodine I feel that given the negative DVT studies and reproducible pain she is low likelihood to have PE. She was slightly dehydrated and given 500 cc of IV fluids. Patient will be signed out to incoming ED doc for follow-up on second troponin at 11:00 and repeat EKG at 11:00. Given the area of her pain I did put a Lidoderm patch on her medial scapula. I feel if her second troponin is negative she is safe to be discharged home. Impression: 1. Atypical chest pain ED Disposition - Plan for ED Patient: Referrals: Galina Tavarez DO [Primary Care Provider] -
[2020-06-29] MEDS: Aspirin 81 MG TAB.CHEW 324 MG PO (18:37)
--- NOTE | 2020-06-29 18:40 | RAD_ITS ---
STUDY: X-RAY CHEST REASON FOR EXAM: Female, 69 years old. PT WITH STENT PLACED 06/18, SINCE THEN INTERMITTENT CHEST DISCOMFORT TO LEFT ARM TECHNIQUE: Single AP portable view of the chest. COMPARISON: 06/17/2020. FINDINGS: The lungs are clear and expanded. There is no demonstrated pleural abnormality. Normal size heart. Normal mediastinum and minerva. Normal visualized pulmonary arteries. Normal visualized aortic arch and descending thoracic aorta. Normal visualized thoracic spine. Normal visualized ribs, clavicles, and shoulders. There is no demonstrated abnormality of the visualized soft tissue structures of the upper abdomen. RAD/Chest 1 View (Portable) IMPRESSION: Normal x-ray examination of the chest. Electronically Signed: Regina Bello MD at 19:44 EST Tel , Service support ,
--- NOTE | 2020-06-29 18:46 | US_ITS ---
STUDY: VENOUS DOPPLER ULTRASOUND - BILATERAL LOWER EXTREMITIES REASON FOR EXAM: Female, 69 years old. BILAT CALF PAIN LT and gt;RT TECHNIQUE: Ultrasound evaluation of the deep vein system to include quiroz-scale imaging and compression was performed. Quiroz-scale imaging and Doppler sonographic evaluation, including duplex spectral analysis and qualitative color flow sonography, was performed. COMPARISON: None. FINDINGS: RIGHT LEG Common femoral, femoral and popliteal veins are patent with no evidence of luminal thrombus. Deep venous structures respond normally to compression and augmentation maneuvers. Normal color Doppler. Visualized calf veins are patent. LEFT LEG Common femoral, femoral and popliteal veins are patent with no evidence of luminal thrombus. Deep venous structures respond normally to compression and augmentation maneuvers. Normal color Doppler. Visualized calf veins are patent. Nonocclusive thrombus in the lesser saphenous vein on the left. US/Venous Duplex Imag/Rod Extrem IMPRESSION: 1. No evidence of DVT. 2. Partial occlusion of the left lesser saphenous vein. Electronically Signed: Robbi Block MD at 20:03 EST , Service support ,
[2020-06-29 20:06] LABS: Absolute Lymphocyte Count 1.38 X10^3/uL (0.83-4.51); Absolute Neutrophil Count 4.3 X10^3/uL (2.0-7.7); Basophil# 0.05 X10^3/uL; Basophil% 0.8 % (0-1); Hematocrit 39.4 % (37-47); Hemoglobin 12.8 g/dL (12.0-15.0); Lymphocyte # 1.38 X10^3/ul (4.0); Lymphocyte % 20.8 % (19-41); Mean Corp Hgb Conc 32.5 g/dL (32-36); Mean Corpuscular Hgb 29.8 pg (27.0-32.0); Mean Corpuscular Volume 91.8 fL (81-99); Mean Platelet Vol. 9.8 fl (6.2-12.0); Monocyte# 0.72 X10^3/uL; Monocyte% 10.8 % (0-10); NRBC Flagged by Analyzer 0 % (0-5); Neutrophil # 4.28 X10^3/uL (2.7-7.7); Neutrophil % 64.3 % (47-70); Platelet Count 239 K/mm3 (150-450); RBC Distribution Width CV 13.4 % (11.6-14.6); Red Blood Count 4.29 M/mm3 (4.2-5.4); White Blood Count 6.7 K/mm3 (4.4-11.0)
[2020-06-29 20:22] VITALS: BP 133/78; PULSE 71; RESP 14; O2SAT 98
--- NOTE | 2020-06-29 20:23 | ED.RN ---
PT REPORTS CHEST PAIN THROUGH TO BACK. PT REMAINS ON PRINCIPAL TECHNOLOGIST. DR. SANABRIA INFORMED. THIS RN CALLED FOR REPEAT EKG. WILL CONTINUE TO MONITOR.
[2020-06-29 20:24] LABS: Anion Gap 7 (5-15); BUN 20 mg/dL (7-18); BUN/Creat Ratio 23.1 RATIO (10-20); Calcium,Total 9.2 mg/dL (8.5-10.1); Chloride 109 mmol/L (98-107); Creatinine, Serum 0.87 mg/dL (0.55-1.02); EST Glomerular Filtration Rate 69 mL/min (>60); Est Glom Filt Rate - Afr Amer 83 mL/min (>60); Estimated Creatinine Clearance 46.05 ml/min; Glucose 143 mg/dL (74-106); Potassium 3.9 mmol/L (3.5-5.1); Sodium Level 141 mmol/L (136-145)
--- NOTE | 2020-06-29 20:29 | EKG12_ITS ---
Test Reason : CP Blood Pressure : / mmHG Vent. Rate : 073 BPM Atrial Rate : 073 BPM P-R Int : 130 ms QRS Dur : 078 ms QT Int : 380 ms P-R-T Axes : 049 -39 034 degrees QTc Int : 418 ms Normal sinus rhythm Left axis deviation Nonspecific ST and T wave abnormality Abnormal ECG Confirmed by JOSHUA SANDERS, PHILLIP ([id number]), society editor IRIS [employer] ([id number]) on 06/30/2020 1:42:03 PM Referred By: FAY Confirmed By:CHEYENNE LEWIS MD
[2020-06-29 21:03] VITALS: BP 134/79; PULSE 73; RESP 19; O2SAT 96
[2020-06-29 22:09] VITALS: BP 136/79; PULSE 69; RESP 14; O2SAT 95
[2020-06-29] MEDS: Lidocaine 5% Patch 1 PATCH TOPICAL (22:54)
--- NOTE | 2020-06-29 23:00 | EKG12_ITS ---
Test Reason : TIMED Blood Pressure : / mmHG Vent. Rate : 066 BPM Atrial Rate : 066 BPM P-R Int : 150 ms QRS Dur : 076 ms QT Int : 414 ms P-R-T Axes : 052 -37 -19 degrees QTc Int : 434 ms Normal sinus rhythm Left axis deviation Inferior infarct , age undetermined Abnormal ECG Confirmed by JOSHUA SANDERS, PHILLIP ([id number]), medical transcription editor IRIS [employer] ([id number]) on 06/30/2020 1:45:21 PM Referred By: GILMAR Confirmed By:CHEYENNE LEWIS MD
[2020-06-29 23:14] VITALS: BP 136/75; PULSE 70; RESP 14; O2SAT 95
[2020-06-29 23:46] VITALS: BP 147/90; PULSE 70; RESP 14; O2SAT 96
== END 2020-06-29 23:47 | disposition home or self-care (01) ==
PROVIDERS: Emergency Provider Student in an Organized Health Care Education/Training Program; PCP Family Medicine
DX: R07.89 Other chest pain (principal); I10 Essential (primary) hypertension; E78.5 Hyperlipidemia, unspecified; I25.10 Atherosclerotic heart disease of native coronary artery without angina pectoris; M79.661 Pain in right lower leg; M79.662 Pain in left lower leg; Z96.652 Presence of left artificial knee joint; Z95.5 Presence of coronary angioplasty implant and graft; Z79.899 Other long term (current) drug therapy
CPT/HCPCS: 36415; 71045; 80048; 84484; 85025; 93005; 93970; 96360; 99285; J7040; A4216

== ENCOUNTER → 2020-07-22 13:30 | Outpatient (CLI) | payer MEDICARE, OTHER, SELFPAY ==
[2020-06-18 14:57] VITALS: BMI 35.3
[2020-07-20 09:37] VITALS: BMI 35.1
--- NOTE | 2020-07-22 13:44 | MRI_ITS ---
Right hip pain following surgery in December. MRI EXAMINATION OF THERight HIP COMPARISON: MRI of the pelvis on June 29, 2016 and radiographs of the pelvis on December 10, 2018 TECHNIQUE: large [id number] coronal T1 STIR and axial STIR images of the pelvis followed by fat-suppressed proton density sagittal and fat-suppressed proton density and fat suppressed T2 weighted axial images of the right hip # of images including paperwork:215 FINDINGS: Evaluation is limited without a current radiograph Bones: No evidence of an acute fracture. Minimal increase signal within the proximal femoral marrow which was present on the prior study most likely reflecting red marrow. Postsurgical changes are seen at the greater trochanter on the right. Musculotendinous structures: There is marked atrophy involving the gluteus medius and minimus muscles on the right. The prior study. There is also involvement of the gluteus stephen muscle on today's study however this is less involved than the medius and minimus. Again noted is peritendinitis involving the gluteus minimus tendon. Partial tendon tear at the insertion seen on image 14 series 8 sagittal. The gluteus medius tendon appears irregular and suspect partial tear. Minimal exertion tendinosis involving the gluteus medius muscle on the left. Minimal strain involving the right Iliacus muscle. Intrapelvic contents: Intrapelvic contents are normal in appearance without mass lesion or other abnormality. Hip joint and bursae: Small hip joint effusion. No evidence of avascular necrosis. No subchondral cyst formation. No evidence of a displaced labral tear. There is right-sided trochanteric bursal fluid. Minimal fluid is seen along the iliopsoas tendon.. In the subcutaneous tissue overlying the lateral gluteus muscles and the right hip. There is low signal on T1 and increased signal in T2. Thickening of the iliotibial tract in this region is more prominent than on the prior study Neurovascular structures: No intrinsic or extrinsic mass along the course of the sciatic or femoral nerve is identified. No arterial aneurysm is identified. MRI/Lower Ext Joint Only (Routine) IMPRESSION: Postsurgical changes involving the right greater trochanter. There is fluid within the trochanteric bursa adjacent to the trochanter. Atrophy of the gluteus minimus and medius muscles on the right increased when compared to prior study. There is also mild atrophy of the gluteus stephen on the right Suspect at least partial tear at the insertion of the gluteus medius and minimus tendons on the greater trochanter There is also thickening of the iliotibial tract when compared to prior study with suspected scarring. Increase signal within the proximal femoral diaphysis bilaterally most likely red marrow Strain involving the right Iliacus Muscle. Small right hip joint effusion. Minimal fluid along the iliopsoas tendon on the right at 2307 Reported and signed by: Tg Crane DO Electronically Signed: Tg Crane DO at 23:06 EST Tel , Service support ,
== END ==
PROVIDERS: PCP Family Medicine; Referring Provider Orthopaedic Surgery; Visit Provider Orthopaedic Surgery
DX: M61.48 Other calcification of muscle, other site (principal); M16.11 Unilateral primary osteoarthritis, right hip; Z47.89 Encounter for other orthopedic aftercare
CPT/HCPCS: 73721

== ENCOUNTER → 2020-09-07 08:50 | Outpatient (CLI) | payer MEDICARE, OTHER, SELFPAY ==
[2020-07-20 09:37] VITALS: BMI 35.1
[2020-09-07 11:33] LABS: AST(SGOT) 37 U/L (15-37); Alanine Aminotransfer ALT/SGPT 53 U/L (13-56); Albumin, Serum 4.2 g/dL (3.2-5.0); Alkaline Phosphatase 81 U/L (45-117); Cholesterol 139 mg/dL (200); Globulin 2.7 g/dL (2.2-4.2); High Density Lipoprotein 37 mg/dL; Protein, Total 6.9 g/dL (6.4-8.2); Triglycerides 308 mg/dL; Very Low Density Lipoprotein 62 mg/dL (5-40)
== END ==
PROVIDERS: PCP Family Medicine; Referring Provider Physician Assistant Medical; Visit Provider Physician Assistant Medical
DX: E78.5 Hyperlipidemia, unspecified (principal)
CPT/HCPCS: 36415; 80061; 80076

== ENCOUNTER 2020-09-15 15:55 | Outpatient (RCR) | payer MEDICARE, OTHER, SELFPAY ==
[2020-07-20 09:37] VITALS: BMI 35.1
[2020-09-14 07:55] VITALS: BMI 35.6
== END 2020-09-15 23:59 ==
LOC: IMMUN 15:55
PROVIDERS: PCP Family Medicine; Referring Provider Family Medicine; Visit Provider Family Medicine
DX: Z23 Encounter for immunization (principal)
CPT/HCPCS: 0011A; 0012A; 91301

== ENCOUNTER 2020-10-27 13:00 | Outpatient (RCR) | payer MEDICARE, OTHER, SELFPAY ==
[2020-09-14 07:55] VITALS: BMI 35.6
== END 2020-10-27 23:59 ==
LOC: DC 13:00
PROVIDERS: PCP Family Medicine; Visit Provider Family Medicine
DX: E11.9 Type 2 diabetes mellitus without complications (principal)
CPT/HCPCS: G0108

== ENCOUNTER 2020-11-18 12:24 | Outpatient (RCR) | payer MEDICARE, OTHER, SELFPAY ==
[2020-09-14 07:55] VITALS: BMI 35.6
== END 2020-11-26 23:59 ==
LOC: DC 12:24
PROVIDERS: PCP Family Medicine; Visit Provider Family Medicine
DX: E11.9 Type 2 diabetes mellitus without complications (principal)
CPT/HCPCS: 97802

== ENCOUNTER 2020-12-09 14:00 | Outpatient (RCR) | payer MEDICARE, OTHER, SELFPAY ==
[2020-09-14 07:55] VITALS: BMI 35.6
== END 2020-12-27 23:59 ==
LOC: DC 14:00
PROVIDERS: PCP Family Medicine; Visit Provider Family Medicine
DX: E11.9 Type 2 diabetes mellitus without complications (principal)
CPT/HCPCS: 97803; G0108

== ENCOUNTER 2021-01-19 09:30 | Outpatient (RCR) | payer MEDICARE, OTHER, SELFPAY ==
[2020-09-14 07:55] VITALS: BMI 35.6
== END 2021-01-19 23:59 | disposition home or self-care (01) ==
LOC: DC 09:30
PROVIDERS: PCP Family Medicine; Visit Provider Family Medicine
DX: E11.9 Type 2 diabetes mellitus without complications (principal)
CPT/HCPCS: 97803

== ENCOUNTER → 2021-02-17 12:00 | Outpatient (CLI) | payer MEDICARE, OTHER, SELFPAY ==
[2020-09-14 07:55] VITALS: BMI 35.6
== END ==
PROVIDERS: PCP Family Medicine; Referring Provider Family Medicine; Visit Provider Family Medicine
DX: M19.90 Unspecified osteoarthritis, unspecified site (principal); M25.541 Pain in joints of right hand; M25.542 Pain in joints of left hand
CPT/HCPCS: 36415; 84550

== ENCOUNTER → 2021-02-28 20:00 | Outpatient (CLI) | payer MEDICARE, OTHER, SELFPAY ==
[2020-09-14 07:55] VITALS: BMI 35.6
== END ==
PROVIDERS: PCP Family Medicine; Referring Provider Family Medicine; Visit Provider Family Medicine
DX: G47.33 Obstructive sleep apnea (adult) (pediatric) (principal)
CPT/HCPCS: 95811

== ENCOUNTER → 2021-03-04 10:00 | Outpatient (CLI) | payer MEDICARE, OTHER, SELFPAY ==
[2020-09-14 07:55] VITALS: BMI 35.6
== END ==
PROVIDERS: PCP Family Medicine; Referring Provider Family Medicine; Visit Provider Family Medicine
DX: Z46.89 Encounter for fitting and adjustment of other specified devices (principal)

== ENCOUNTER → 2021-03-08 07:56 | Outpatient (CLI) | payer MEDICARE, OTHER, SELFPAY ==
[2021-03-07 14:00] VITALS: BMI 36.2
[2021-03-08 10:15] LABS: AST(SGOT) 31 U/L (15-37); Alanine Aminotransfer ALT/SGPT 45 U/L (13-56); Albumin, Serum 3.9 g/dL (3.2-5.0); Alkaline Phosphatase 65 U/L (45-117); Bilirubin, Direct 0.11 mg/dL (0.00-0.30); Cholesterol 137 mg/dL (200); Globulin 3.1 g/dL (2.2-4.2); High Density Lipoprotein 36 mg/dL; Triglycerides 317 mg/dL; Very Low Density Lipoprotein 63 mg/dL (5-40)
== END ==
PROVIDERS: PCP Family Medicine; Referring Provider Internal Medicine Cardiovascular Disease; Visit Provider Internal Medicine Cardiovascular Disease
DX: E78.00 Pure hypercholesterolemia, unspecified (principal); E78.5 Hyperlipidemia, unspecified
CPT/HCPCS: 36415; 80061; 80076

== ENCOUNTER → 2021-05-17 07:31 | Outpatient (CLI) | payer MEDICARE, OTHER, SELFPAY ==
--- NOTE | 2021-05-17 07:34 | BI_ITS ---
MAMMOGRAPHY - BILATERAL SCREENING REASON FOR EXAM: Female, 70 years old. Routine annual screening examination. PERTINENT HISTORY: Non-contributory. TECHNIQUE: Digital bilateral breast elan (3D mammographic acquisition) in the CC and MLO projections. 2-D mediolateral oblique (MLO) and craniocaudad (CC) views of both breasts were obtained. CAD: Full Field Digital Mammography with Computer Added Detection was performed. COMPARISON: Comparison is made with prior examination dated 04/28/2020 and 10/22/2018. FINDINGS: Breast Composition: The breasts are heterogeneously dense, which may obscure small masses. There are no dominant masses or suspicious calcifications. Stable benign-appearing bilateral axillary lymph nodes. No other significant abnormalities are identified. There has been no significant change since the prior study. BI/SCRN MAMM (CAD)W/ELAN BILAT IMPRESSION: Stable bilateral screening mammogram. Yearly follow-up mammogram recommended. (A) ASSESSMENT CATEGORY: BIRADS Category 2: Benign. A letter regarding these results will be sent to the patient by the facility within 30 days. Approximately 10% of breast cancers are not detected by mammography. A normal mammogram should not delay biopsy of a clinically suspicious abnormality. [id number] Electronically Signed: Zachary Taylor MD at 9:03 EDT , Service support ,
== END ==
PROVIDERS: PCP Family Medicine; Referring Provider Nurse Practitioner Women's Health; Visit Provider Nurse Practitioner Women's Health
DX: Z12.31 Encounter for screening mammogram for malignant neoplasm of breast (principal)
CPT/HCPCS: 77063; 77067

== ENCOUNTER → 2021-05-26 09:14 | Outpatient (CLI) | payer MEDICARE, OTHER, SELFPAY | PROVIDERS: PCP Family Medicine; Visit Provider Family Medicine | DX: R30.0 Dysuria (principal) | CPT/HCPCS: 87077; 87086; 87088; 87186 ==

== ENCOUNTER → 2021-06-18 10:36 | Outpatient (CLI) | payer MEDICARE, OTHER, SELFPAY | PROVIDERS: PCP Family Medicine; Visit Provider Nurse Practitioner Family | DX: Z87.440 Personal history of urinary (tract) infections (principal); Z79.899 Other long term (current) drug therapy | CPT/HCPCS: 87077; 87086; 87088; 87186 ==

== ENCOUNTER → 2021-07-06 09:05 | Outpatient (CLI) | payer MEDICARE, OTHER, SELFPAY ==
[2021-07-06 11:04] LABS: AST(SGOT) 39 U/L (15-37); Alanine Aminotransfer ALT/SGPT 56 U/L (13-56); Albumin, Serum 4.1 g/dL (3.2-5.0); Alkaline Phosphatase 39 U/L (45-117); Bilirubin, Direct 0.08 mg/dL (0.00-0.30); Cholesterol 133 mg/dL (200); Globulin 3.2 g/dL (2.2-4.2); High Density Lipoprotein 38 mg/dL; Protein, Total 7.3 g/dL (6.4-8.2); Triglycerides 248 mg/dL; Very Low Density Lipoprotein 50 mg/dL (5-40)
== END ==
PROVIDERS: PCP Family Medicine; Referring Provider Nurse Practitioner Family; Visit Provider Nurse Practitioner Family
DX: E78.00 Pure hypercholesterolemia, unspecified (principal)
CPT/HCPCS: 36415; 80061; 80076

== ENCOUNTER 2021-08-24 09:44 | Outpatient (CLI) | payer MEDICARE, OTHER, SELFPAY | END 2021-08-24 23:59 | disposition short-term general hospital (02) | LOC: LABSPEC 08-25 09:44 | PROVIDERS: PCP Family Medicine; Visit Provider Family Medicine | DX: R30.0 Dysuria (principal) | CPT/HCPCS: 87077; 87086; 87088; 87186 ==

== ENCOUNTER 2021-10-07 09:52 | Outpatient (CLI) | payer MEDICARE, OTHER, SELFPAY ==
--- NOTE | 2021-10-07 09:55 | NM_ITS ---
CLINICAL: 71-year-old female with history of right upper quadrant abdominal pain. RADIONUCLIDE HEPATOBILIARY SCINTIGRAPHY COMPARISON: [facility] hepatobiliary scintigraphy report 04/02/2019 FINDINGS: Following the intravenous administration of 5.3 mCi of 99m Tc Mebrofenin, hepatobiliary images reveal: 1. Relatively prompt and homogeneous radiopharmaceutical concentration is noted by a normal sized liver. No parenchymal defects are identified. 2. Gallbladder activity is identified at 15 minutes post radiopharmaceutical administration. 3. Intestinal tract is not visualized during 60 minutes of sequential image acquisition. Small bowel is defined following the administration of the fatty meal. 4. Washout of the radiopharmaceutical by the hepatic parenchyma appears qualitatively normal. The patient was administered a fatty meal (8 ounces of Boost). The post fatty meal ingestion gallbladder ejection fraction calculated at 30 minutes was noted to be 77.0 % (normal greater than 30%) compared to 96% recorded on the [facility] hepatobiliary study report dated 04/02/2019. NM/Hepatobilliary Img w/Pharm Int IMPRESSION: 1. NORMAL 99m Tc Mebrofenin hepatobiliary imaging examination with fatty meal ingestion. A. A gallbladder ejection fraction calculated to be greater than 30% following the administration of an ingested fatty meal makes the probability of functional hepatobiliary disease (gallbladder and/or sphincter of Oddi dyskinesia) and/or organic hepatobiliary disease (chronic acalculous cholecystitis and/or cystic duct syndrome) to be low. (Nikko and Sixto, J Nucl Med 43: 1603, 2002). B. Overall compared to the previous [facility] hepatobiliary scintigraphy study dated 04/02/2019, there is continued demonstration of a normal physiologic gallbladder response to hepatobiliary stimulation as defined above. Electronically Signed: Manuel Jacob DO at 22:41 EST ,
== END 2021-10-07 23:59 | disposition home or self-care (01) ==
LOC: NM 09:53
PROVIDERS: PCP Family Medicine; Referring Provider Family Medicine; Visit Provider Family Medicine
DX: R10.11 Right upper quadrant pain (principal); R19.7 Diarrhea, unspecified
CPT/HCPCS: 78227; A9537

== ENCOUNTER 2021-10-17 07:44 | Outpatient (CLI) | payer MEDICARE, OTHER, SELFPAY ==
--- NOTE | 2021-10-17 07:46 | US_ITS ---
STUDY: ABDOMINAL ULTRASOUND - RIGHT UPPER QUADRANT REASON FOR VISIT: Female, 71 years old AB PAIN RUQ TECHNIQUE: Ultrasound evaluation of the right upper quadrant was performed with real-time and static zacarias-scale imaging. TECHNICAL QUALITY: Adequate. COMPARISON: None. FINDINGS: Liver: The liver measures 17 cm. There is increased echogenicity consistent with fatty infiltration. The bile ducts are within normal limits. There is hepatic color flow. The direction of portal flow is hepatopetal. There is no demonstrated mass lesion. Gallbladder: Normal distended gallbladder. The gallbladder wall measures 2 mm. There is a negative sonographic Thibodeaux''s sign. There is no pericholecystic fluid. There are no gallstones. Common Bile Duct (C.B.D.): The common bile duct measures 4 mm. Pancreas: Normal size of the head, body of the pancreas. The tail portion is obscured due to overlying bowel gas. There is normal echogenicity of the pancreas. There is no demonstrated pancreatic mass or cyst. Right Kidney: Normal size of the right kidney. The right kidney measures 11.7 cm x 4.7 cm x 4.3 cm. Normal renal cortex. The right cortex measures 1.2 cm. There is no demonstrated renal mass or cyst. There is no right hydronephrosis. US/Abdomen Limited IMPRESSION: Borderline hepatomegaly. Fatty infiltration of the liver. Electronically Signed: Zachary Taylor MD at 14:16 EDT ,
== END 2021-10-17 23:59 | disposition home or self-care (01) ==
LOC: US 07:45
PROVIDERS: PCP Family Medicine; Referring Provider Family Medicine; Visit Provider Family Medicine
DX: R10.11 Right upper quadrant pain (principal); R11.0 Nausea
CPT/HCPCS: 76705

== ENCOUNTER 2021-10-20 08:46 | Emergency (ER) | payer MEDICARE, OTHER, SELFPAY ==
[2021-10-20 08:47] VITALS: BP 149/113; PULSE 79; RESP 16; TEMP 36.2; O2SAT 98; BMI 34.7
--- NOTE | 2021-10-20 09:03 | EKG12_ITS ---
Test Reason : CP Blood Pressure : / mmHG Vent. Rate : 077 BPM Atrial Rate : 077 BPM P-R Int : 138 ms QRS Dur : 078 ms QT Int : 376 ms P-R-T Axes : 052 -39 -04 degrees QTc Int : 425 ms Sinus rhythm with Premature atrial complexes Left axis deviation Inferior infarct , age undetermined Abnormal ECG Confirmed by FABIO SANEDRS, PANDA ([id number]), greeting card editor [employer] ([id number]) on 10/24/2021 10:41:20 AM Referred By: GILMAR Confirmed By:PANDA MCCARTHY MD
[2021-10-20 09:35] LABS: Absolute Lymphocyte Count 1.18 X10^3/uL (0.83-4.51); Absolute Neutrophil Count 3.8 X10^3/uL (2.0-7.7); Basophil# 0.05 X10^3/uL; Basophil% 0.9 % (0-1); Eosinophil# 0.13 X10^3/uL; Eosinophils% 2.3 % (0-5); Hematocrit 40.4 % (37-47); Lymphocyte # 1.18 X10^3/ul (0.83-4.51); Lymphocyte % 20.5 % (19-41); Mean Corp Hgb Conc 34.7 g/dL (32-36); Mean Corpuscular Hgb 31.7 pg (27.0-32.0); Mean Corpuscular Volume 91.6 fL (81-99); Mean Platelet Vol. 9.7 fl (6.2-12.0); Monocyte# 0.58 X10^3/uL; Monocyte% 10.1 % (0-10); NRBC Flagged by Analyzer 0 % (0-5); Neutrophil # 3.81 X10^3/uL (2.7-7.7); Neutrophil % 65.9 % (47-70); Platelet Count 272 K/mm3 (150-450); RBC Distribution Width CV 12.9 % (11.6-14.6); RBC Distribution Width SD 43.6 fl (35.1-43.9); Red Blood Count 4.41 M/mm3 (4.2-5.4); White Blood Count 5.8 K/mm3 (4.4-11.0)
--- NOTE | 2021-10-20 09:36 | CT_ITS ---
STUDY: CT ABDOMEN AND PELVIS WITHOUT CONTRAST REASON FOR EXAM: Female, 71 years old. One week history of epigastric pain. RADIATION DOSAGE (If Supplied By Facility): CTDIvol = ( 17.02 ) mGy, DLP = ( 789.38 ) mGycm TECHNIQUE: Transaxial images were obtained from the dome of the diaphragm to the symphysis pubis without oral contrast, and without intravenous contrast. Sagittal and coronal images were reconstructed. Individualized dose optimization techniques were used for this CT. COMPARISON: Comparison is made with prior examination of 12/04/2013. FINDINGS: Stable mild increased linear markings in the lingular segment of the left upper lobe suggestive of scarring. Coronary artery calcification. There is decreased attenuation of the liver consistent with steatosis. Normal gallbladder and extrahepatic biliary system. Normal spleen. Normal pancreas. Normal bilateral adrenal glands. Normal right kidney. There is a 1 cm hypodense nodule arising from the peripheral lateral aspect of the left kidney. This does not appear to be a typical cyst. Correlation with ultrasound is recommended. Normal visualized stomach. Normal small intestine. Normal colon. The appendix is visualized and appears normal. There is scattered atherosclerotic calcification of the abdominal aorta, without a demonstrated aneurysm. Normal inferior vena cava. There is borderline retroperitoneal lymphadenopathy with enlarged nodes no greater than 10mm in the short axis diameter. Normal urinary bladder. Calcified fibroid uterus. There is asymmetrical atrophy of the right iliopsoas muscle. This may be secondary to right-sided weakness and/or paralysis. This is new as compared to prior study. There are calcified injection granulomas in both gluteal regions. There are degenerative changes of the visualized lumbar spine. CT/Abdomen/Pelvis without Cont IMPRESSION: Fatty infiltration of the liver. Asymmetrical atrophy of the left iliopsoas musculature suggestive of possible CVA. Fibroid uterus. 1 cm hypodense nodule arising from the left kidney as described. Correlation with ultrasound is recommended. Electronically Signed: Zachary Taylor MD at 10:50 EDT ,
--- NOTE | 2021-10-20 09:39 | RAD_ITS ---
STUDY: X-RAY CHEST REASON FOR EXAM: Female, 71 years old. Chest pain TECHNIQUE: Single AP portable view of the chest. COMPARISON: Comparison is made with prior study dated 06/29/2020. FINDINGS: EKG electrodes are seen. Stable mild elevation of the left hemidiaphragm with increased linear markings at the left lung base suggestive of left basilar scarring. Stable blunting of the left costophrenic angle. Normal size heart. Normal mediastinum and minerva. Normal visualized pulmonary arteries. There is atherosclerotic calcification of the aortic arch with tortuosity. There are degenerative changes of the visualized thoracic spine. Normal visualized ribs, clavicles, and shoulders. There is no demonstrated abnormality of the visualized soft tissue structures of the upper abdomen. RAD/Chest 1 View (Portable) IMPRESSION: Stable increased markings at the left lung base suggestive of left basilar scarring. Electronically Signed: Zachary Taylor MD at 9:52 EDT ,
[2021-10-20 09:53] LABS: Anion Gap 6 (5-15); BUN 18 mg/dL (7-18); BUN/Creat Ratio 20.5 RATIO (10-20); Calcium,Total 9.4 mg/dL (8.5-10.1); Chloride 108 mmol/L (98-107); Creatinine, Serum 0.88 mg/dL (0.55-1.02); EST Glomerular Filtration Rate 68 mL/min (>60); Est Glom Filt Rate - Afr Amer 82 mL/min (>60); Estimated Creatinine Clearance 44.25 ml/min; Glucose 180 mg/dL (74-106); Sodium Level 139 mmol/L (136-145); Troponin-I HS < 3 pg/mL (3.0-54.0)
[2021-10-20 10:07] LABS: ALB/GLOB Ratio 1.4 RATIO (0.9-2.4); AST(SGOT) 37 U/L (15-37); Alanine Aminotransfer ALT/SGPT 53 U/L (13-56); Albumin, Serum 4.2 g/dL (3.2-5.0); Alkaline Phosphatase 39 U/L (45-117); Globulin 2.9 g/dL (2.2-4.2); Lipase 123 U/L (73-393); Protein, Total 7.1 g/dL (6.4-8.2)
[2021-10-20] MEDS: 0.9% Normal Saline 1,000 ML 1000 ML IV (10:07)
[2021-10-20] MEDS: Ondansetron 4 MG/2 ML Vial IV (10:07)
[2021-10-20 10:10] VITALS: BP 149/78; PULSE 72; RESP 14
--- NOTE | 2021-10-20 10:19 | EX.ED.DYSGE1 ---
HPI <ROBERT Plaza - Last Filed: 10/20/21 11:56> History of Present Illness Chief Complaint: Chest Pain Narrative Narrative: 71-year-old female with a long medical history, history of chronic abdominal pain, cardiac stents, obesity, diabetes presents to the emergency department with 1 week of epigastric, upper abdominal pain with nausea. Patient states that this pain is gnawing however does have periods of being sharp. Patient states that most of the time the pain is sharp as at nighttime. Patient recently had ultrasounds of the right upper quadrant, right lower abdomen, these were unremarkable. She did see her urologist yesterday, she did have a urine test which was negative for any infection. Patient denies any fever or chills. Patient complains of decreased appetite as well as intermittent pain. Denies any vomiting, constipation, blood in stool or vomit. [facility] <ROBERT Plaza - Last Filed: 10/20/21 11:56> [facility] Medical History (Updated 10/20/21 @ 11:55 by ROBERT Plaza) Abdominal pain Abnormal biliary HIDA scan Arthritis Atherosclerosis of coronary artery of [place] heart without angina pectoris Atrophic vaginitis Back pain Chest pain Cough Dermatitis due to sun Diabetes mellitus Diarrhea Dizziness Dyspnea, unspecified Essential (primary) hypertension History of Velazquez's esophagus History of MA (myocardial infarction) Hyperlipidemia Hypothyroidism Leg edema Leg pain Lumbar disc disease Premature ventricular contractions Syncope and collapse Home Medications aspirin 81 mg tablet,delayed release 81 mg PO QDAY 08/23/17 [History Last Taken 06/18/20] metformin 500 mg tablet,extended release 24 hr 500 mg PO BID tab 09/10/17 [History Last Taken 06/18/20] methenamine hippurate 1 gram tablet 1 g PO BID 09/18/18 [History Last Taken Unknown] calcium carb-Ca gluc 500 mg calcium-magnesium ox-Mg gluc 250 mg tablet 2,000 mg PO DAILY 04/06/20 [History Last Taken Unknown] nitroglycerin 0.4 mg sublingual tablet 0.4 mg SUBLINGUAL Q5-15M PRN #25 tab 06/16/20 [Rx Last Taken Unknown] nabumetone 750 mg tablet 750 mg PO BID 07/20/20 [History Last Taken Unknown] omeprazole 40 mg capsule,delayed release 40 mg PO DAILY 09/14/20 [History Last Taken Unknown] zoledronic acid 5 mg/100 mL in mannitol 5 %-water intravenous piggybck ea .ROUTE 09/14/20 [History Last Taken Unknown] amlodipine 5 mg tablet 5 mg PO DAILY #90 tab 12/08/20 [Rx Last Taken Unknown] rosuvastatin 20 mg tablet 20 mg PO QHS #90 tab 02/04/21 [Rx Last Taken Unknown] allopurinol 100 mg tablet 100 mg PO DAILY 03/07/21 [History Last Taken Unknown] gabapentin 300 mg capsule 300 mg PO BID cap 03/07/21 [History Last Taken Unknown] fenofibrate micronized 200 mg capsule 200 mg PO QPM #90 cap 04/08/21 [Rx Last Taken Unknown] isosorbide mononitrate 30 mg tablet,extended release 24 hr 30 mg PO DAILY #90 tab 05/31/21 [Rx Last Taken Unknown] estradiol 1 g VAGINAL 2XW g 07/12/21 [History Last Taken Unknown] glipizide 2.5 mg tablet, extended release 24 hr 2.5 mg PO QPM tab 07/12/21 [History Last Taken Unknown] glipizide 5 mg tablet, extended release 24 hr 5 mg PO QAM tab 07/12/21 [History Last Taken Unknown] ipratropium bromide 42 mcg (0.06 %) nasal spray 2 spray INTRANASAL DAILY ml 07/12/21 [History Last Taken Unknown] levothyroxine 100 mcg tablet 100 mcg PO DAILY 07/12/21 [History Last Taken Unknown] triamcinolone acetonide 0.1 % topical cream 1 applic TOPICAL BID g 07/12/21 [History Last Taken Unknown] metoprolol tartrate 100 mg tablet 100 mg PO BID #180 tab 07/27/21 [Rx Last Taken Unknown] clopidogrel 75 mg tablet 75 mg PO DAILY #90 tab 08/10/21 [Rx Last Taken Unknown] ondansetron 4 mg PO Q8H PRN #10 tab 10/20/21 [Rx Last Taken Unknown] Allergy/AdvReac Type Severity Reaction Status Date / Time hydrocodone bitartrate Allergy Itching Verified 10/20/21 08:49 [From Vicodin] Iodinated Contrast Media Allergy Anaphylaxis Verified 10/20/21 08:49 codeine AdvReac Severe Unknown Verified 10/20/21 08:49 esomeprazole [From Nexium] AdvReac Severe Causes Verified 10/20/21 08:49 elevated LFTs Sulfa (Sulfonamide AdvReac Severe Causes Verified 10/20/21 08:49 Antibiotics) elevated LFTs levofloxacin [From Levaquin] AdvReac Nausea/Vom/ Verified 10/20/21 08:49 Diarrhea Niacin Preparations AdvReac Other Verified 10/20/21 08:49 Family History Mother Diabetes Heart disease Surgical History back injection History of bilateral cataract extraction History of carpal tunnel release of both wrists History of coronary artery stent placement (06/18/20) History of foot surgery History of hip surgery History of knee replacement History of left heart catheterization (06/04/12) Status post tendon reattachment Social History Smoking Status: Never smoker alcohol intake: current alcohol intake frequency: holidays/special occasions only Alcohol type: wine substance use type: does not use caffeine: Yes Type: coffee Number of servings: 1 what type of physical activity do you participate in: none seatbelt use: always do you feel safe at home: Yes additional social history: -Terry Patient is retired ROS <ROBERT Plaza - Last Filed: 10/20/21 11:56> ROS ED ROS Narrative Constitutional: Negative for fever, chills, weight loss or gain, weakness Eyes: Negative for vision loss, vision change, double vision ENT: Negative for any hearing changes, ringing in the ears, dizziness, discharge, pain Nose: Negative for any congestion, runny nose, sinus pain, allergies Throat: Negative for any sore throat hoarseness, voice changes, Cardiovascular: Negative for any chest pain, tightness, palpitations, racing heartbeat Respiratory: Negative for any coughs, sputum production, coughing, hemoptysis, shortness of breath, shortness of breath on exertion, Gastrointestinal: Negative for any vomiting, constipation, blood in stool, blood in vomit. Positive for nausea, abdominal pain, epigastric pain : Negative for any urinary frequency, incontinence, dysuria, retention, blood in urine Muscle skeletal: Negative for any muscle joint pain, stiffness, myalgias, arthralgias, neck pain, back pain Neurological: Negative for any headache, head injury, dizziness, syncope, numbness or tingling Skin: Negative for any rashes, lumps, itching, abrasions, lacerations Psychiatric: Negative for any depression, anxiety, stress, suicidal ideation, homicidal ideation Hematologic: Negative for any easy bruising, excessive bruising, easy bleeding Allergies: Negative for any eczema, hives, rash EXAM <ROBERT Plaza Last Filed: 10/20/21 11:56> Physical Exam Const Vital Signs: 10/20/21 08:47 10/20/21 10:10 10/20/21 10:11 Temperature 97.2 F L Temperature Source Temporal Pulse Rate 79 72 Respiratory Rate 16 14 Blood Pressure 149/113 H 149/78 H Blood Pressure Mean 125 101 Pulse Ox 98 Oxygen Delivery Method Room Air Room Air 10/20/21 12:21 Temperature Temperature Source Pulse Rate 72 Respiratory Rate Blood Pressure 141/77 H Blood Pressure Mean Pulse Ox Oxygen Delivery Method Positive well nourished and well developed General Appearance ED: active, cooperative, comfortable and well developed HEENT Reports normocephalic Resp normal respiratory effort and normal air movement Effort and Inspection: able to speak in complete sentences and symmetric chest movement Cardio regular rate and regular rhythm GI normal to inspection, nondistended, normoactive bowel sounds GI Narrative: Patient did have some tenderness along the right upper quadrant, epigastric area. Back/Spine no CVA tenderness, normal ROM and normal to inspection Extremity normal to inspection Neuro oriented x3 and CN's II-XII intact bilaterally <Dr. Phan Rajput, DO - Last Filed: 10/20/21 13:51> Physical Exam Const Vital Signs: 10/20/21 08:47 10/20/21 10:10 10/20/21 10:11 Temperature 97.2 F L Temperature Source Temporal Pulse Rate 79 72 Respiratory Rate 16 14 Blood Pressure 149/113 H 149/78 H Blood Pressure Mean 125 101 Pulse Ox 98 Oxygen Delivery Method Room Air Room Air 10/20/21 12:21 Temperature Temperature Source Pulse Rate 72 Respiratory Rate Blood Pressure 141/77 H Blood Pressure Mean Pulse Ox Oxygen Delivery Method MDM <ROBERT Plaza Last Filed: 10/20/21 11:56> [facility] Lab Data Attestation: I reviewed the patient's lab results. Labs: Laboratory Results - last 24 hr 10/20/21 10/20/21 10/20/21 09:30 09:30 10:55 WBC 5.8 RBC 4.41 Hgb 14.0 Hct 40.4 MCV 91.6 MCH 31.7 MCHC 34.7 RDW Std Deviation 43.6 RDW Coeff of Radha 12.9 Plt Count 272 MPV 9.7 Immature Gran % (Auto) 0.300 Neut % (Auto) 65.9 Lymph % (Auto) 20.5 Addison % (Auto) 10.1 H Eos % (Auto) 2.3 Baso % (Auto) 0.9 Absolute Neuts (auto) 3.8 Absolute Lymphs (auto) 1.18 Nucleated RBC % 0 Sodium 139 Potassium 4.0 Chloride 108 H Carbon Dioxide 25.0 Anion Gap 6 BUN 18 Creatinine 0.88 Estim Creat Clear Calc 44.25 Est GFR (MDRD) Af Amer 82 Est GFR (MDRD) Non-Af 68 BUN/Creatinine Ratio 20.5 H Glucose 180 H Calcium 9.4 Total Bilirubin 0.40 AST 37 ALT 53 Alkaline Phosphatase 39 L Troponin I High Sens < 3 L Total Protein 7.1 Albumin 4.2 Globulin 2.9 Albumin/Globulin Ratio 1.4 Lipase 123 Urine Color Yellow Urine Clarity Sl. Cloudy Urine pH 6.5 Ur Specific [place] 1.010 Urine Protein Negative Urine Glucose (UA) Normal Urine Ketones Negative Urine Occult Blood Negative Urine Nitrite Negative Urine Bilirubin Negative Urine Urobilinogen Normal Ur Leukocyte Esterase 25 H Urine RBC 0 SEEN Urine WBC 0 SEEN Ur Squamous Epith Cells 0-5 SEEN Urine Bacteria 0 SEEN Urine Mucus 0 SEEN Radiography Chest X-Ray - ED: 1 View Diagnostic Testing: Clinical Impression(s) from Imaging Studies Abdomen/Pelvis CT 10/20/21 09:36 IMPRESSION: Fatty infiltration of the liver. Asymmetrical atrophy of the left iliopsoas musculature suggestive of possible CVA. Fibroid uterus. 1 cm hypodense nodule arising from the left kidney as described. Correlation with ultrasound is recommended. Electronically Signed: Zachary Taylor MD at 10:50 EDT , Chest X-Ray 10/20/21 09:39 IMPRESSION: Stable increased markings at the left lung base suggestive of left basilar scarring. Electronically Signed: Zachary Taylor MD at 9:52 EDT , Patient did receive chest x-ray, this was read by the ER physician, showed stable increased markings left lung base suggestive for left basilar scarring, no acute process. Patient's CT of the abdomen pelvis without contrast secondary to anaphylactic allergy, she received a fatty liver infiltration the liver, asymmetrical atrophy of the left iliopsoas musculature suggestive of possible CVA. No acute process. EKG Sinus rhythm: Attestation: I personally reviewed and interpreted this EKG as follows: Interpretation: Sinus Rhythm Comments: Sinus rhythm premature atrial complexes. Rate is 77 bpm, MD interval 130 ms, QRS duration 78 ms Prior: Unchanged Treatment and Re-Evaluation Narrative: Patient appears generally well, patient is in no distress, vital signs are stable. Patient presents the emerge department 1 week of intermittent epigastric, upper abdominal pain. Patient did receive a full abdominal work-up. Patient's CBC, BMP were grossly unremarkable, patient's urinalysis was negative for any infection. Patient's lipase was unremarkable. Liver function tests were unremarkable. Patient did receive a cardiac work-up, patient EKG was unremarkable, patient's troponin was negative. No indication of any MA, pneumonia. Chest x-ray was unremarkable. Patient did receive a CT of the abdomen pelvis, this showed no acute process, the patient will follow up outpatient. At this time, patient did receive IV fluids, IV Zofran, patient is abasia comfort. Patient is stable for discharge, and is stable to follow-up outpatient. Patient will require Zofran ODT prescription. Patient struck to return for any worsening symptoms. <Dr. Phan Rajput, DO - Last Filed: 10/20/21 13:51> [facility] Narrative Medical decision making narrative: Patient seen in conjunction with physician assistant professor sculpture. I agree with assessment and work-up and did intradurally assess and examined the patient. Patient presenting with epigastric pain. This does not appear to be worse with food or diet changes. She states that they will come out of nowhere. She does not have kareem chest pain or shortness of breath. She denies constipation or diarrhea but does express that she has nausea. Lab work was obtained and was in normal limits. High-sensitivity troponin is less than 3. EKG on my interpretation is sinus rhythm without signs of ischemia. CAT scan of the abdomen pelvis negative for acute findings. Recommend patient follow-up with GI. She was amenable to this. She was given Zofran for home. Lab Data Attestation: I reviewed the patient's lab results. Labs: Laboratory Results - last 24 hr 10/20/21 10/20/21 10/20/21 09:30 09:30 10:55 WBC 5.8 RBC 4.41 Hgb 14.0 Hct 40.4 MCV 91.6 MCH 31.7 MCHC 34.7 RDW Std Deviation 43.6 RDW Coeff of Radha 12.9 Plt Count 272 MPV 9.7 Immature Gran % (Auto) 0.300 Neut % (Auto) 65.9 Lymph % (Auto) 20.5 Addison % (Auto) 10.1 H Eos % (Auto) 2.3 Baso % (Auto) 0.9 Absolute Neuts (auto) 3.8 Absolute Lymphs (auto) 1.18 Nucleated RBC % 0 Sodium 139 Potassium 4.0 Chloride 108 H Carbon Dioxide 25.0 Anion Gap 6 BUN 18 Creatinine 0.88 Estim Creat Clear Calc 44.25 Est GFR (MDRD) Af Amer 82 Est GFR (MDRD) Non-Af 68 BUN/Creatinine Ratio 20.5 H Glucose 180 H Calcium 9.4 Total Bilirubin 0.40 AST 37 ALT 53 Alkaline Phosphatase 39 L Troponin I High Sens < 3 L Total Protein 7.1 Albumin 4.2 Globulin 2.9 Albumin/Globulin Ratio 1.4 Lipase 123 Urine Color Yellow Urine Clarity Sl. Cloudy Urine pH 6.5 Ur Specific [place] 1.010 Urine Protein Negative Urine Glucose (UA) Normal Urine Ketones Negative Urine Occult Blood Negative Urine Nitrite Negative Urine Bilirubin Negative Urine Urobilinogen Normal Ur Leukocyte Esterase 25 H Urine RBC 0 SEEN Urine WBC 0 SEEN Ur Squamous Epith Cells 0-5 SEEN Urine Bacteria 0 SEEN Urine Mucus 0 SEEN Radiography Diagnostic Testing: Clinical Impression(s) from Imaging Studies Abdomen/Pelvis CT 10/20/21 09:36 IMPRESSION: Fatty infiltration of the liver. Asymmetrical atrophy of the left iliopsoas musculature suggestive of possible CVA. Fibroid uterus. 1 cm hypodense nodule arising from the left kidney as described. Correlation with ultrasound is recommended. Electronically Signed: Zachary Taylor MD at 10:50 EDT , Chest X-Ray 10/20/21 09:39 IMPRESSION: Stable increased markings at the left lung base suggestive of left basilar scarring. Electronically Signed: Zachary Taylor MD at 9:52 EDT , Discharge Plan Triage Chief Complaint: Chest Pain ED Midlevel Provider: Ari Cabrera ED Provider: Phan Rajput Dx/Rx/DC Orders Clinical Impression: Abdominal pain Instructions: Abdominal Pain Prescriptions: New ondansetron 4 mg tablet,disintegrating 4 mg PO Q8H PRN (Reason: nausea and vomiting) Qty: 10 RF: 0 No Action aspirin [Adult Low Dose Aspirin] 81 mg tablet,delayed release (DR/EC) 81 mg PO QDAY RF: 0 metformin 500 mg tablet extended release 24 hr 500 mg PO BID RF: 0 methenamine hippurate 1 gram tablet 1 g PO BID RF: 0 estradiol [Estrace] 0.01 % (0.1 mg/gram) cream 1 g VAGINAL 2XW RF: 0 gabapentin 300 mg capsule 300 mg PO BID RF: 0 Ca carb-Ca gluc-Mg ox-Mg gluco 500 mg calcium -250 mg tablet 2,000 mg PO DAILY RF: 0 omeprazole 40 mg capsule,delayed release(DR/EC) 40 mg PO DAILY RF: 0 zoledronic [id number] [Reclast] 5 mg/100 mL piggyback .Route RF: 0 nabumetone 750 mg tablet 750 mg PO BID RF: 0 allopurinol 100 mg tablet 100 mg PO DAILY RF: 0 isosorbide mononitrate 30 mg tablet extended release 24 hr 30 mg PO DAILY Qty: 90 RF: 3 glipizide 5 mg tablet extended release 24hr 5 mg PO QAM RF: 0 glipizide 2.5 mg tablet extended release 24hr 2.5 mg PO QPM RF: 0 ipratropium bromide 42 mcg (0.06 %) spray,non-aerosol 2 spray intranasal DAILY RF: 0 triamcinolone acetonide 0.1 % cream 1 applic topical BID RF: 0 levothyroxine 100 mcg tablet 100 mcg PO DAILY RF: 0 nitroglycerin 0.4 mg tablet, sublingual 0.4 mg SUBLINGUAL Q5-15M PRN (Reason: chest pain) Qty: 25 RF: 3 amlodipine 5 mg tablet 5 mg PO DAILY Qty: 90 RF: 3 rosuvastatin 20 mg tablet 20 mg PO QHS Qty: 90 RF: 3 fenofibrate micronized 200 mg capsule 200 mg PO QPM Qty: 90 RF: 3 metoprolol tartrate 100 mg tablet 100 mg PO BID Qty: 180 RF: 4 clopidogrel [Plavix] 75 mg tablet 75 mg PO DAILY Qty: 90 RF: 3 Primary Care Provider: Galina Tavarez Referrals: Galina Tavarez DO [Primary Care Provider] - Friend,DO Bakari [STAFF PHYSICIAN] - (Please see gastroenterology for these chronic abdominal pain) Print Language: French Disposition Disposition: Home, Self Care Discharge Date/Time: 10/20/21 12:27
[2021-10-20 11:00] LABS: Bacteria 0 SEEN /hpf (None Seen); Mucous, Urine 0 SEEN /hpf (<or=2+); Red Blood Cells-Urine 0 SEEN /hpf (0-5); White Blood Cells 0 SEEN /hpf (0-5)
[2021-10-20 11:02] LABS: Color, Urine Yellow (Yellow); Glucose, Dipstick Normal (Normal); Ketone-Dipstick Negative (Negative); Leukocyte Esterase-Dipstick 25 /ul (Negative); Nitrite-Dipstick Negative (Negative); Occult Blood-Urine Negative /ul (Negative); Protein-Dipstick Negative (Negative); Urine Bilirubin Dipstick Negative (Negative); Urine Clarity Sl. Cloudy (Clear); Urine Urobilinogen Normal (Normal); Urine pH 6.5 (5.0 - 8.0)
[2021-10-20 11:08] LABS: Squamous Epithelial Cells - UA 0-5 SEEN /hpf (5-10)
[2021-10-20 12:21] VITALS: BP 141/77; PULSE 72
== END 2021-10-20 12:27 | disposition home or self-care (01) ==
PROVIDERS: Nurse Practitioner; Emergency Provider Student in an Organized Health Care Education/Training Program; PCP Family Medicine; Visit Provider Student in an Organized Health Care Education/Training Program
DX: R10.9 Unspecified abdominal pain (principal); I25.10 Atherosclerotic heart disease of native coronary artery without angina pectoris; Z95.5 Presence of coronary angioplasty implant and graft
CPT/HCPCS: 71045; 74176; 80053; 81001; 83690; 84484; 85025; 93005; 96361; 96374; 99285; J7030; J2405

== ENCOUNTER 2021-10-24 13:30 | Outpatient (RCR) | payer MEDICARE, OTHER, SELFPAY ==
--- NOTE | 2021-04-13 17:01 | HP.PTEVAL_ITS ---
Patient's Visit Information KORIN HARPER is a 70 year old F referred to Physical Therapy by PRADEEP LYONS with a diagnosis of S/P Glut medius repair on 03-09-21. Date of Evaluation: 04/13/21 Physical Therapist: ERMIAS Sutton - Visit Plan Frequency: 2-3x /Week Duration: 2 Months Plan: Pt is NWB until RTD on 04-21-21..... +++Avoid twisting motion, NO ACTIVE hip ABD and IR and NO PASSIVE ADD or ER X 6 weeks (04-21-21). Dr orders to NOT push through the pain and no aggressive ROM. PROM R hip flex to 90 degrees for 3 weeks with gradual increase after 3 weeks. PROM R hip ABD as tolerated, PROM R hip ext may progress from 0 degrees after 3 weeks. At week 4-6 may begin GENTLE AROM Hip flexion (avoid hip flexor tendonitis). May do Hip isometrics (EXT, ADD, and sub-max pain free hip flexion). Quad and Hamstring Isotonic strength. Quadraped Rocking. Gentle hip flexor stretching. SEE PROTOCOL IN FOLDER STARTING AT 6 weeks (04-21-21) and after follow up Dr littlejohn. - Subjective Pt had R Gluteus medius repair on 03-09-21. She reports that she is not sure how she tore it in the first place. She had a surgery 1/5 years ago and it did not work right after that. They surgery was removal of calcium deposits and reattachment of G-max. 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 Her incision is healed. She is not icing and not doing pain meds. Pt is non weight bearing until next and see Dr at 6 weeks post op. Pt is wearing a hip abd brace and has been wearing it 24-7. Pt had some home therapy twice. He said to schedule outpatient PT on 03-31-21. Pt has 4 steps to go up and down to get in and out of the house and uses 1 crutch and a railing with spotting her. - Objective Gait: Pt walks in NWB on the R with crutches with no signs of LOB with hip abd brace in place. PROM R hip ABD 40 degrees. PROM R hip flexion 105 degrees. Pt is able to do pain free QS, Hamstring set, and Hip add - Balance/Special Test Scores Lower Extremity Functional Score: 11 - Goals Goal 1:: I HEP Goal Time Frame: 8-12 Weeks Goal 2:: Increase LE strength per protocol to be able to go up and down the stairs recip with one handrail by DC with no pain Goal Time Frame: 8-12 Weeks Goal 3:: Be able to walk without an antalgic gait by DC Goal Time Frame: 8-12 Weeks Goal 4:: Increase R hip strength to 4/5 by DC Goal Time Frame: 8-12 Weeks - Rehabilitation Potential Rehabilitation Potential: Good - Anticipated Interventions Patient/Client Instruction: Educate patient on: Condition, Plan of Care For the Purpose of:: To decrease pain, To improve nutrient delivery to tissue, To improve muscle performance and motor function, To improve ability to perform ADL's, To increase tolerance to activity/condition/position, To improve performance and independence with ADL's, To decrease level of supervision to perform tasks, To improve ability of physical actions for home/community/work/leisure, To improve gait and locomotor functions, To improve health of tissue, To decrease soft tissue restriction, To increase flexibility /ROM, To improve balance, To improve safety with gait Therapeutic Exercise to Include: Strength training, Endurance training, Body mechanics, Flexibilty training, Gait and locomotor training, Neuromotor development, Passive ROM, Active ROM, Dynamic Lumbar Stabilization For the Purpose of:: To decrease pain, To increase ROM, To improve nutrient deli very to tissue, To increase oxygenation perfusion, To improve muscle performance and motor function, To improve ability to perform ADL's, To increase tolerance to activity/condition/position, To improve performance and independence with ADL's, To improve ability of physical actions for home/community/work/leisure, To improve gait and locomotor functions, To improve health of tissue, To decrease soft tissue restriction, To increase flexibility/ROM, To improve safety with gait Functional Training to Include: Gait training For the Purpose of:: To improve gait and locomotor functions, To improve safety with gait Manual Therapy Techniques to Include: Mobilization, Passive ROM, Soft tissue mobilization For the Purpose of:: To decrease pain, To decrease swelling/inflammation, To increase ROM, To improve nutrient delivery to tissue, To improve muscle performance and motor function, To improve ability to perform ADL's, To increase tolerance to activity/condition/position, To improve gait and locomotor functions, To improve health of tissue, To decrease soft tissue restriction, To increase flexibility/ROM Thank you for the opportunity to evaluate your patient. For Medicare and Medicare HMO plans, please review the plan of care and approve it. It will need to be FAXED BACK to us at [phone] for Medicare purposes. For Medicare only, by signing this I certify the plan of care. Please let me know if there are questions or concerns regarding this plan of c are. Physician Signature: Date:
--- NOTE | 2021-05-20 10:34 | HP.PTREVAL_ITS ---
PRADEEP LYONS, It has been my pleasure to treat KORIN HARPER over the last 10 visits for S/P Glut medius repair on 03-09-21. Please see the progress note below for an update on the physical therapy plan of care! Subjective: Pt reports that she likes that she is able to wear what since she wants since she does not have the brace. Pt knows that she is still limping. She is walking in with a cane. Objective/Function: Stairs: up and down recip with 2 handrails with increase B LE weakness. Gait: walks with a straight cane in the R hand with increase weakness (trendelenburg) Plan Plan: See detailed protocol in the folder. FWB starting 05-12-21. Dr orders to NOT push through the pain and no aggressive ROM. Balance/Gait/Functional tests - Balance/Special Test Scores Lower Extremity Functional Score: 46 Goals Goal 1:: I HEP Goal Time Frame: 8-12 Weeks Goal Progress: Goal Met Goal 2:: Increase LE strength per protocol to be able to go up and down the stairs recip with one handrail by DC with no pain Goal Time Frame: 8-12 Weeks Goal 3:: Be able to walk without an antalgic gait by DC Goal Time Frame: 8-12 Weeks Goal Progress: Progressing Goal 4:: Increase R hip strength to 4/5 by DC Goal Time Frame: 8-12 Weeks Anticipated Interventions Patient/Client Instruction: Educate patient on: Condition, Plan of Care For the Purpose of:: To decrease pain, To improve nutrient delivery to tissue, To improve muscle performance and motor function, To improve ability to perform ADL's, To increase tolerance to activity/condition/position, To improve performance and independence with ADL's, To decrease level of supervision to perform tasks, To improve ability of physical actions for home/communi ty/work/leisure, To improve gait and locomotor functions, To improve health of tissue, To decrease soft tissue restriction, To increase flexibility/ROM, To improve balance, To improve safety with gait Therapeutic Exercise to Include: Strength training, Endurance training, Body mechanics, Flexibilty training, Gait and locomotor training, Neuromotor development, Passive ROM, Active ROM, Dynamic Lumbar Stabilization For the Purpose of:: To decrease pain, To increase ROM, To improve nutrient delivery to tissue, To increase oxygenation perfusion, To improve muscle performance and motor function, To improve ability to perform ADL's, To increase tolerance to activity/condition/position, To improve performance and independence with ADL's, To improve ability of physical actions for home/community/work/leisure, To improve gait and locomotor functions, To improve health of tissue, To decrease soft tissue restriction, To increase flexibility/ROM, To improve safety with gait Functional Training to Include: Gait training For the Purpose of:: To improve gait and locomotor functions, To improve safety with gait Manual Therapy Techniques to Include: Mobilization, Passive ROM, Soft tissue mobilization For the Purpose of:: To decrease pain, To decrease swelling/inflammation, To increase ROM, To improve nutrient delivery to tissue, To improve muscle performance and motor function, To improve ability to perform ADL's, To increase tolerance to activity/condition/position, To improve gait and locomotor functions, To improve health of tissue, To decrease soft tissue restriction, To increase flexibility/ROM Please do not hesitate to contact me at [phone] by phone or if you have questions or concerns regarding this new plan of care! Sincerely, Sheryl Kirby, MPT
--- NOTE | 2021-08-02 12:04 | HP.PTREVAL_ITS ---
PRADEEP LYONS, It has been my pleasure to treat KORIN HARPER over the last 26 visits for S/P Glut medius repair on 03-09-21 R. Please see the progress note below for an update on the physical therapy plan of care! Subjective: Pt feel good. She feels that her walking is better and she did not take her cane much this week except for long trips with the snow etc. Pt fell in the driveway on Sunday on her back to avoid her hitting her with the snowplow. She feels ok other than spraining her thumb. Patient ended pain managment yesterday. Objective/Function: stairs: up and down with recip with 1 hand rail. verbal cues to tighten core. gait: walks with L hip drop still but does much better and is stronger. Her L hip drop is not as much apparent when she concentrates on her core. LE MMT: L hip abd 3+/5 Plan Plan: Pt to do HEP everyday and work on walking everyday at home and will resassess in 2 weeks. Balance/Gait/Functional tests - Balance/Special Test Scores Lower Extremity Functional Score: 46 Goals Goal 1:: I HEP Goal Time Frame: 8-12 Weeks Goal Progress: Goal Met Goal 2:: Increase LE strength per protocol to be able to go up and down the stairs recip with one handrail by DC with no pain Goal Time Frame: 8-12 Weeks Goal 3:: Be able to walk without an antalgic gait by DC Goal Time Frame: 8-12 Weeks Goal Progress: Progressing Goal 4:: Increase R hip strength to 4/5 by DC Goal Time Frame: 8-12 Weeks Anticipated Interventions Patient/Client Instruction: Educate patient on: Condition, Plan of Care For the Purpose of:: To decrease pain, To improve nutrient delivery to tissue, To improve muscle performance and motor function, To improve ability to perform ADL's, To increase tolerance to activity/condition/position, To improve performance and independence with ADL's, To decrease level of supervision to perform tasks, To improve ability of physical actions for home/community/work/leisure, To improve gait and locomotor functions, To improve health of tissue, To decrease soft tissue restriction, To increase flexibility/ROM, To improve balance, To improve safety with gait Therapeutic Exercise to Include: Strength training, Endurance training, Body mechanics, Flexibilty training, Gait and locomotor training, Neuromotor development, Passive ROM, Active ROM, Dynamic Lumbar Stabilization For the Purpose of:: To decrease pain, To increase ROM, To improve nutrient delivery to tissue, To increase oxygenation perfusion, To improve muscle performance and motor function, To improve ability to perform ADL's, To increase tolerance to activity/condition/position, To improve performance and independence with ADL's, To improve ability of physical actions for home/community/work/leisure, To improve gait and locomotor functions, To improve health of tissue, To decrease soft tissue restriction, To increase flexib ility/ROM, To improve safety with gait Functional Training to Include: Gait training For the Purpose of:: To improve gait and locomotor functions, To improve safety with gait Manual Therapy Techniques to Include: Mobilization, Passive ROM, Soft tissue mobilization For the Purpose of:: To decrease pain, To decrease swelling/inflammation, To increase ROM, To improve nutrient delivery to tissue, To improve muscle performance and motor function, To improve ability to perform ADL's, To increase tolerance to activity/condition/position, To improve gait and locomotor functions, To improve health of tissue, To decrease soft tissue restriction, To increase flexibility/ROM Please do not hesitate to contact me at [phone] by phone or if you have questions or concerns regarding this new plan of care! Sincerely, ERMIAS Sutton
--- NOTE | 2021-09-13 13:59 | HP.PTREVAL ---
PRADEEP LYONS, It has been my pleasure to treat KORIN HARPER over the last 29 visits for S/P Glut medius repair on 03-09-21 R. Please see the progress note below for an update on the physical therapy plan of care! Subjective: Pt got ahold of Dr and will see Dr on the . Objective/Function: Gait: walks with L hip drop still without an AD. Pt does not like to weight shift onto the R side and causes L hip drop. Stairs: up and down recip with 2 hand rails with no sign of hip drop as long as has UE assist with railings. LE MMT R hip and 3-/5, R hip flex 4-/5, R hip ext 3+/5, R knee ext 4/5, R knee flex 4/5. Pt struggles to just hold her R leg in hip abd in sidelying as her leg just begins to fall. Plan Plan: Hold chart until after Dr littlejohn. Pt to follow up with her Dr. Pt to do HEP everyday and work on walking everyday at home. Pt to report what the Dr feels is the next step Balance/Gait/Functional tests - Balance/Special Test Scores Lower Extremity Functional Score: 40 Goals Goal 1:: I HEP Goal Time Frame: 8-12 Weeks Goal Progress: Goal Met Goal 2:: Increase LE strength per protocol to be able to go up and down the stairs recip with one handrail by DC with no pain Goal Time Frame: 8-12 Weeks Goal Progress: Goal Met Goal 3:: Be able to walk without an antalgic gait by DC Goal Time Frame: 8-12 Weeks Goal Progress: Progressing Goal 4:: Increase R hip strength to 4/5 by DC Goal Time Frame: 8-12 Weeks Goal Progress: Progressing Anticipated Interventions Patient/Client Instruction: Educate patient on: Condition, Plan of Care For the Purpose of:: To decrease pain, To improve nutrient delivery to tissue, To improve muscle performance and motor function, To improve ability to perform ADL's, To increase tolerance to activity/condition/position, To improve performance and independence with ADL's, To decrease level of supervision to perform tasks, To improve ability of physical actions for home/community/work/leisure, To improve gait and locomotor functions, To improve health of tissue, To decrease soft tissue restriction, To increase flexibility/ROM, To improve balance, To improve safety with gait Therapeutic Exercise to Include: Strength training, Endurance training, Body mechanics, Flexibilty training, Gait and locomotor training, Neuromotor development, Passive ROM, Active ROM, Dynamic Lumbar Stabilization For the Purpose of:: To decrease pain, To increase ROM, To improve nutrient delivery to tissue, To increase oxygenation perfusion, To improve muscle performance and motor function, To improve ability to perform ADL's, To increase tolerance to activity/condition/position, To improve performance and independence with ADL's, To improve ability of physical actions for home/community/work/leisure, To improve gait and locomotor functions, To improve health of tissue, To decrease soft tissue restriction, To increase flexibility/ROM, To improve safety with gait Functional Training to Include: Gait training For the Purpose of:: To improve gait and locomotor functions, To improve safety with gait Manual Therapy Techniques to Include: Mobilization, Passive ROM, Soft tissue mobilization For the Purpose of:: To decrease pain, To decrease swelling/inflammation, To increase ROM, To improve nutrient delivery to tissue, To improve muscle performance and motor function, To improve ability to perform ADL's, To increase tolerance to activity/condition/position, To improve gait and locomotor functions, To improve health of tissue, To decrease soft tissue restriction, To increase flexibility/ROM Please do not hesitate to contact me at [phone] by phone or if you have questions or concerns regarding this new plan of care! Sincerely, ERMIAS Sutton
--- NOTE | 2021-09-27 09:13 | HP.PTREVAL_ITS ---
PRADEEP LYONS, It has been my pleasure to treat KORIN HARPER over the last 30 visits for S/P Glut medius repair on 03-09-21 R. Please see the progress note below for an update on the physical therapy plan of care! Subjective: Pt is now dealing with a gall bladder issue. They may have to do something with it. Pt went to the Ortho Dr last and he said it will just take time and wants her to do some AT. He wants her to continue with land therapy as well. Pt wants to do Objective/Function: This program will be over several months due to the amount of strengthening needed due to condition of tissue prior surgery. LE MMT R hip and 3-/5, R hip flex 4-/5, R hip ext 3+/5, R knee ext 4/5, R knee flex 4/5. Stairs: up and down recip with signs of weakness on the L ascending the steps and descending with 1 hand rail and hip drop of not supported with R UE. Gait: walks with L hip drop if not supported with AD or UE support Plan Plan: 3X/ week for 3 weeks for I progression of AT program for core stability, hip and glut/hip abd strengthening, gait training, stair training. Pt to continue at [place] with gym routine/AT routine and mix in [facility] classes. Balance/Gait/Functional tests - Balance/Special Test Scores Lower Extremity Functional Score: 40 Goals Goal 1:: I AT program Goal Time Frame: 8-12 Weeks Goal Progress: Goal Met Goal 2:: Increase LE strength per protocol to be able to go up and down the stairs recip with one handrail by DC with no pain Goal Time Frame: 8-12 Weeks Goal Progress: Goal Met Goal 3:: Be able to walk without cane with slight or no hip drop by DC Goal Time Frame: 8-12 Weeks Goal Progress: Progressing Goal 4:: Increase R hip strength to 4/5 by DC Goal Time Frame: 8-12 Weeks Goal Progress: Progressing Goal 5:: Be able to go up and down the stairs recip with 1 hand rail with no signs of weakness Goal Time Frame: 8-12 Weeks Anticipated Interventions Patient/Client Instruction: Educate patient on: Condition, Plan of Care For the Purpose of:: To decrease pain, To improve nutrient delivery to tissue, To improve muscle performance and motor function, To improve ability to perform ADL's, To increase tolerance to activity/condition/position, To improve performance and independence with ADL's, To decrease level of supervision to perform tasks, To improve ability of physical actions for home/community/work/leisure, To improve gait and locomotor functions, To improve health of tissue, To decrease soft tissue restriction, To increase flexibility/ROM, To improve balance, To improve safety with gait Therapeutic Exercise to Include: Strength training, Endurance training, Body mechanics, Flexibilty training, Gait and locomotor training, Neuromotor development, Passive ROM, Active ROM, Dynamic Lumbar Stabilization For the Purpose of:: To decrease pain, To increase ROM, To improve nutrient delivery to tissue, To increase oxygenation perfusion, To improve muscle performance and motor function, To improve ability to perform ADL's, To increase tolerance to activity/condition/position, To improve performance and independence with ADL's, To improve ability of physical actions for home/c ommunity/work/leisure, To improve gait and locomotor functions, To improve health of tissue, To decrease soft tissue restriction, To increase flexibility/ROM, To improve safety with gait Functional Training to Include: Gait training For the Purpose of:: To improve gait and locomotor functions, To improve safety with gait Manual Therapy Techniques to Include: Mobilization, Passive ROM, Soft tissue mobilization For the Purpose of:: To decrease pain, To decrease swelling/inflammation, To increase ROM, To improve nutrient delivery to tissue, To improve muscle performance and motor function, To improve ability to perform ADL's, To increase tolerance to activity/condition/position, To improve gait and locomotor functions, To improve health of tissue, To decrease soft tissue restriction, To increase flexibility/ROM Please do not hesitate to contact me at [phone] by phone or Fax: if you have questions or concerns regarding this new plan of care! Sincerely, ERMIAS Sutton
--- NOTE | 2021-10-19 11:40 | HP.PTREVAL ---
PRADEEP LYONS, It has been my pleasure to treat KORIN HARPER over the last 39 visits for S/P Glut medius repair on 03-09-21 R. Please see the progress note below for an update on the physical therapy plan of care! Subjective: Pt has been sick due to an antibiotic that was making her sick. Pt feels that the water therapy is going ok. Pt wants to do another 3 weeks to increase her strength and learn I H20 program. Pt does better when she is in the water cause she can be corrected for form. The plan after next 3 weeks to join [employer] to do pool therapy and land therapy. Pt is still frustrated that she has to use the cane. Objective/Function: LE MMT: R hip flexion 4-/5 and L hip flex 4/5, R hip abd 3+/5 and L hip abd 4/5, able to 3/4 normal bridge, B knee flex 4/5, B knee ext 4/5. Gait: Stairs: up and down recip with increase difficulty driving through R LE and not able to lift L hip up high enough at times to clear L foot with SBA and 1 hand rails. Plan Plan: 3X/ week for 3 additional weeks for I progression of AT program for core stability, hip and glut/hip abd strengthening, gait training, stair training. Pt to continue at [place] with gym routine/AT routine and mix in [employer] classes. Balance/Gait/Functional tests - Balance/Special Test Scores Lower Extremity Functional Score: 38 Goals Goal 1:: I AT program Goal Time Frame: 8-12 Weeks Goal Progress: Progressing Goal 2:: Increase LE strength per protocol to be able to go up and down the stairs recip with one handrail by DC with no pain Goal Time Frame: 8-12 Weeks Goal Progress: Goal Met Goal 3:: Be able to walk without cane with slight or no hip drop by DC Goal Time Frame: 8-12 Weeks Goal Progress: Progressing Goal 4:: Increase R hip strength to 4/5 by DC Goal Time Frame: 8-12 Weeks Goal Progress: Progressing Goal 5:: Be able to go up and down the stairs recip with 1 hand rail with no signs of weakness Goal Time Frame: 8-12 Weeks Goal Progress: Progressing Anticipated Interventions Patient/Client Instruction: Educate patient on: Condition, Plan of Care For the Purpose of:: To decrease pain, To improve nutrient delivery to tissue, To improve muscle performance and motor function, To improve ability to perform ADL's, To increase tolerance to activity/condition/position, To improve performance and independence with ADL's, To decrease level of supervision to perform tasks, To improve ability of physical actions for home/community/work/leisure, To improve gait and locomotor functions, To improve health of tissue, To decrease soft tissue restriction, To increase flexibility/ROM, To improve balance, To improve safety with gait Therapeutic Exercise to Include: Strength training, Endurance training, Body mechanics, Flexibilty training, Gait and locomotor training, Neuromotor development, Passive ROM, Active ROM, Dynamic Lumbar Stabilization For the Purpose of:: To decrease pain, To increase ROM, To improve nutrient delivery to tissue, To increase oxygenation perfusion, To improve muscle performance and motor function, To improve ability to perform ADL's, To increase tolerance to activity/condition/position, To improve performance and independence with ADL's, To improve ability of physical actions for home/community/work/leisure, To improve gait and locomotor functions, To improve health of tissue, To decrease soft tissue restriction, To increase flexibility/ROM, To improve safety with gait Functional Training to Include: Gait training For the Purpose of:: To improve gait and locomotor functions, To improve safety with gait Manual Therapy Techniques to Include: Mobilization, Passive ROM, Soft tissue mobilization For the Purpose of:: To decrease pain, To decrease swelling/inflammation, To increase ROM, To improve nutrient delivery to tissue, To improve muscle performance and motor function, To improve ability to perform ADL's, To increase tolerance to activity/condition/position, To improve gait and locomotor functions, To improve health of tissue, To decrease soft tissue restriction, To increase flexibility/ROM Please do not hesitate to contact me at [phone] by phone or if you have questions or concerns regarding this new plan of care! Sincerely, ERMIAS Sutton
== END 2021-11-21 19:00 | disposition home or self-care (01) ==
LOC: PT 13:30
PROVIDERS: PCP Family Medicine
DX: Z98.890 Other specified postprocedural states (principal)
CPT/HCPCS: 97110; 97113; 97116; 97161; 97164; 97530

== ENCOUNTER 2021-10-31 12:40 | Outpatient (CLI) | payer MEDICARE, OTHER, SELFPAY ==
[2021-10-31 13:50] LABS: Erythrocyte Sedimentation Rate 1 mm/hr (0-30); International Normalized Ratio 0.9
[2021-10-31 14:11] LABS: AST(SGOT) 53 U/L (15-37); Alanine Aminotransfer ALT/SGPT 84 U/L (13-56); Albumin, Serum 4.1 g/dL (3.2-5.0); Alkaline Phosphatase 37 U/L (45-117); Bilirubin, Direct 0.11 mg/dL (0.00-0.30); CRP < 2.90 mg/L (0.0-3.0); Ferritin 47 ng/mL (8-252); Globulin 3.1 g/dL (2.2-4.2); LDH 190 U/L (84-246); Protein, Total 7.2 g/dL (6.4-8.2)
[2021-11-02 16:09] LABS: Anti-Centromere B Ab <0.2 AI (0.0-0.9); Anti-Chromatin <0.2 AI (0.0-0.9); Anti-Jo <0.2 AI (0.0-0.9); Anti-Scleroderma-70 AB <0.2 AI (0.0-0.9); RNP Ab <0.2 AI (0.0-0.9); SJOGREN'S Anti-SS-A test < 0.2 AI (0.0-0.9); SJOGREN'S Anti-SS-B test < 0.2 AI (0.0-0.9); Smith Ab <0.2 AI (0.0-0.9)
[2021-11-02 20:20] LABS: Anti-Mitochondrial AB <20.0 Units (0.0-20.0); Anti-dsDNA Ab 1 IU/mL (0-9)
[2021-11-03 16:09] LABS: Angiotensin Convert Enzyme 32 U/L (14-82); Ceruloplasmin 18.3 mg/dL (19.0-39.0); Cytoplasmic Ab (C-ANCA) <1:20 titer (Neg:<1:20); HEPATITIS B SURFACE AG Negative (Negative); Hepatitis A IgM Antibody Negative (Negative); Hepatitis B Core AB IgM Negative (Negative)
[2021-11-04 13:36] LABS: Anti-Smooth Muscle ABS 3 Units (0-19); Haptoglobin 85 mg/dL (42-346); Hep C Antibodies <0.1 s/co ratio (0.0-0.9); Perinuclear Ab (P-ANCA) <1:20 titer (Neg:<1:20)
== END 2021-10-31 23:59 | disposition home or self-care (01) ==
PROVIDERS: PCP Family Medicine; Referring Provider Nurse Practitioner Adult Health; Visit Provider Nurse Practitioner Adult Health
DX: K76.0 Fatty (change of) liver, not elsewhere classified (principal); R10.9 Unspecified abdominal pain; I25.10 Atherosclerotic heart disease of native coronary artery without angina pectoris
CPT/HCPCS: 36415; 80074; 80076; 82164; 82390; 82728; 83010; 83516; 83615; 85610; 85652; 86140; 86225; 86235; 86256

== ENCOUNTER 2021-11-01 11:49 | Outpatient (CLI) | payer MEDICARE, OTHER, SELFPAY ==
--- NOTE | 2021-11-01 11:52 | US_ITS ---
EXAM: US Kidney(s) complete (eg, kidneys and bladder) INDICATION: CYST OF KIDNEY. TECHNIQUE: Kidneys and bladder. COMPARISON: CT abdomen pelvis 10/20/2021. Images and report. LIMITATIONS: None. FINDINGS: RIGHT KIDNEY Length: 11.6 cm Parenchyma: Unremarkable. Hydronephrosis: None. LEFT KIDNEY Length: 11.6 cm Parenchyma: There is a 1.1 x 1.1 x 1.1 cm simple cyst exophytic, appears to correspond to the CT finding. Hydronephrosis: None. BLADDER: Moderately distended. Unremarkable. Bilateral ureteral jets visualized. OTHER: None. IMPRESSION: 1 cm left renal cyst. Electronically Signed: Susan Nance MD at 6:03 EDT , US/Kidney and Bladder
== END 2021-11-01 23:59 | disposition home or self-care (01) ==
LOC: US 11:50
PROVIDERS: PCP Family Medicine; Referring Provider Urology; Visit Provider Urology
DX: N28.1 Cyst of kidney, acquired (principal)
CPT/HCPCS: 76770

== ENCOUNTER 2021-11-04 08:17 | Outpatient (CLI) | payer MEDICARE, OTHER, SELFPAY ==
--- NOTE | 2021-11-04 08:18 | US_ITS ---
STUDY: ABDOMINAL ULTRASOUND - ELASTOGRAPHY REASON FOR VISIT: Female, 71 years old. Fatty infiltration of the liver. TECHNIQUE: Liver stiffness measurements were obtained on a [employer] RS 85 ultrasound machine using a CA 1-7 probe following the SRU guidelines. 3 measurements were obtained using a 2-D-SWE method. The IQR/M was 12% suggesting a quality data set. TECHNICAL QUALITY: Adequate. COMPARISON: Comparison is made with prior examination dated 10/17/2021. FINDINGS: Liver: Fatty infiltration of the liver. Median liver stiffness measured 7.1 kPa. US/Elastography Parenchyma/Organ IMPRESSION: Liver stiffness measures 7.1 kPa compatible with F2-F3 (Mild to moderate liver fibrosis) Metavir score. Electronically Signed: Zachary Taylor MD at 15:28 EDT ,
== END 2021-11-04 23:59 | disposition home or self-care (01) ==
LOC: US 08:17
PROVIDERS: PCP Family Medicine; Referring Provider Nurse Practitioner Adult Health; Visit Provider Nurse Practitioner Adult Health
DX: K76.0 Fatty (change of) liver, not elsewhere classified (principal); E11.9 Type 2 diabetes mellitus without complications; R11.0 Nausea; R10.9 Unspecified abdominal pain
CPT/HCPCS: 76981

== ENCOUNTER 2021-11-08 10:46 | Outpatient (CLI) | payer MEDICARE, OTHER, SELFPAY ==
--- NOTE | 2021-11-08 10:50 | NM_ITS ---
History: nausea, abd pain, DM2 EXAMINATION: NM Gastric Emptying Study (solid, liquid or both) TECHNIQUE: Radiopharmaceutical (solid portion of the exam): 1.1 mCi of Tc99m Sulfur Colloid mixed with oat meal. Oral administration. Imaging: Serial imaging performed to evaluate gastric emptying COMPARISON: None FINDINGS: Gastric emptying time with solids: Is 30% at 30 minutes, within normal limits. NM/Gastric Emptying Study IMPRESSION: Normal gastric emptying time with solids. at 1609 Reported and signed by: Moe Barajas MD Electronically Signed: Moe Barajas MD at 16:07 EDT ,
== END 2021-11-08 23:59 | disposition home or self-care (01) ==
LOC: NM 10:48
PROVIDERS: PCP Family Medicine; Referring Provider Nurse Practitioner Adult Health; Visit Provider Nurse Practitioner Adult Health
DX: R10.9 Unspecified abdominal pain (principal); E11.9 Type 2 diabetes mellitus without complications; K76.0 Fatty (change of) liver, not elsewhere classified; R11.0 Nausea
CPT/HCPCS: 78264; A9541

== ENCOUNTER 2021-11-21 09:00 | Outpatient (RCR) | payer MEDICARE, OTHER, SELFPAY ==
--- NOTE | 2021-11-21 10:02 | HP.PTDCSUM ---
It has been my pleasure to treat KORIN HARPER referred by Dr. Galina Tavarez DO, with the diagnosis of S/P Glut medius repair on 03-09-21 R for a total of 48 visit(s). Discharge Date: 11/21/21 Please see the following information for a summary of their discharge status. Subjective: Pt is frustrated with being in therapy for so long and getting small improvement. She feels that something is really messed up. Her current Dr thinks it will take a full year. Pt has no pain but more of an ache. Pt has different times of the day when she does well or when it falls apart. RLE Pain Intensity (Out of 10): 1 % Improvement: 93 Objective/Function: Gait: pt still walks with decrease hip strength and increase major hip drop without her cane. Stairs; up and downrecip with 2 hand rails for light balance. LE MMT: R hip abd 3+/5, R hip ext 4-/5 Goal 1:: I AT program Goal Progress: Goal Met Goal 2:: Increase LE strength per protocol to be able to go up and down the stairs recip with one handrail by DC with no pain Goal Progress: Progressing Goal 3:: Be able to walk without cane with slight or no hip drop by DC Goal Progress: Progressing Goal 4:: Increase R hip strength to 4/5 by DC Goal Progress: Progressing Goal 5:: Be able to go up and down the stairs recip with 1 hand rail with no signs of weakness Goal Progress: Progressing Plan: DC PT to HEP and back to physician. Discharge Comments: DC PT to HEP and back to physician If there are questions or concerns regarding this patient's physical therapy, please feel free to call me at [phone]. Thank you for the referral of this patient. Sincerely, Sheryl Kirby, MPT Balance/Gait/Functional tests - Balance/Special Test Scores Lower Extremity Functional Score: 28
== END 2021-11-21 15:34 | disposition home or self-care (01) ==
LOC: PT 09:00
PROVIDERS: PCP Family Medicine; Visit Provider Family Medicine
DX: S76.011D Strain of muscle, fascia and tendon of right hip, subsequent encounter (principal)
CPT/HCPCS: 97113; 97530

== ENCOUNTER → 2021-11-21 | Outpatient (CLI) | payer MEDICARE, OTHER, SELFPAY ==
[2021-11-21 13:01] LABS: GGTP 47 U/L (5-55)
[2021-11-28 10:07] LABS: Immunoglobulin A 99 mg/dL (64-422); Immunoglobulin G 502 mg/dL (586-1602); Immunoglobulin G, Subclass 1 261 mg/dL (248-810); Immunoglobulin G, Subclass 2 124 mg/dL (130-555); Immunoglobulin G, Subclass 3 32 mg/dL (15-102); Immunoglobulin G, Subclass 4 15 mg/dL (2-96); Immunoglobulin M 31 mg/dL (26-217)
[2021-11-28 11:43] LABS: Immunoglobulin E 2 IU/mL (6-495)
== END | disposition home or self-care (01) ==
LOC: MTLAB 09:47
PROVIDERS: PCP Family Medicine; Referring Provider Nurse Practitioner Adult Health; Visit Provider Nurse Practitioner Adult Health
DX: R76.8 Other specified abnormal immunological findings in serum (principal); K76.0 Fatty (change of) liver, not elsewhere classified
CPT/HCPCS: 36415; 82784; 82785; 82787; 82977

== ENCOUNTER → 2021-12-30 | Outpatient (CLI) | payer MEDICARE, OTHER, SELFPAY ==
[2021-12-30 13:03] LABS: AST(SGOT) 29 U/L (15-37); Alanine Aminotransfer ALT/SGPT 44 U/L (13-56); Albumin, Serum 4.1 g/dL (3.2-5.0); Alkaline Phosphatase 40 U/L (45-117); Bilirubin, Direct 0.12 mg/dL (0.00-0.30); Cholesterol 125 mg/dL (200); Globulin 3.2 g/dL (2.2-4.2); High Density Lipoprotein 36 mg/dL; Protein, Total 7.3 g/dL (6.4-8.2); Triglycerides 194 mg/dL; Very Low Density Lipoprotein 39 mg/dL (5-40)
== END | disposition home or self-care (01) ==
LOC: LAB 11:58
PROVIDERS: PCP Family Medicine; Referring Provider Nurse Practitioner Family; Visit Provider Nurse Practitioner Family
DX: E78.00 Pure hypercholesterolemia, unspecified (principal)
CPT/HCPCS: 36415; 80061; 80076

== ENCOUNTER 2022-02-01 07:44 | Day surgery (SDC) | payer MEDICARE, OTHER, SELFPAY ==
[2022-02-01] VITALS (7 sets, daily range): BP systolic 100–134; BP diastolic 48–93; PULSE 66–72; RESP 16–18; TEMP 36.1–36.9; O2SAT 94–100; BMI 33.7
[2022-02-01] MEDS: Lactated Ringers 1,000 ML 15 ML IV (08:05)
--- NOTE | 2022-02-01 08:26 | PCM.HP.BLA ---
History and Physical Date of Admission: 02/01/22 KORIN HARPER, is a 71 F who presents to the office today for f/u abdominal pain, hx Velazquez's, fatty liver GERD/Velazquez's -- She takes omeprazole 40 mg daily. Last EGD was 04/24/[address] Walter, PORSCHE Grade A esophagitis, biopsy positive for Velazquez's, negative for dysplasia. She has a hiatal hernia. Screening colonoscopy was done then too, internal and external hemorrhoids, one polyp (tubular adenoma), diverticulosis in sigmoid and descending colon. She is scheduled for EGD and colonoscopy with Dr Matthews 02/01/22. Abdominal pain -- There are multiple types of abdominal pain. One pain is a cramp-type pain across the lower abd, feels almost like menstrual cramps; this used to be constant but has lessened since her last visit, not currently problematic. The second pain is an intermittent sharp pain in middle of abd, behind the umbilicus, this pain is also not currently an issue. The third pain is a constant tenderness in the RUQ and epigastrium; this is the most bothersome pain for her, started end of 09/2021; it is constant; increases when lying on right side, then the ribs hurt. Had some nausea last week again, no vomiting. No improvement with sucralfate. Not related to eating. No relief with TUMS. No heartburn or CP. Diarrhea --? One bout of diarrhea since her appt with us on 10/31/21; it occurred after she increased metformin so she decreased back to current dose. BMs have been normal since then, has 3-4 soft BMs a day normally. No melena or hematochezia. NAFLD -- fatty liver was first seen on CT that was done at ED visit 09/2021 for abdominal pain. Elastography demonstrated F2-F3 fibrosis. 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 GGT normal. She used to see a Repairer [employer]cre[employer] at [facility] in [place] for arthritis, we will refer her there. Labs 10/2021: low IgG, IgG2, and IgE possibly related to autoimmune condition. AST 53, ALT 84. Atypical p-ANCA 1:40. Other labs for liver w/u unremarkable. 11/04/21 US/Elastography Parenchyma/Organ IMPRESSION: Liver stiffness measures 7.1 kPa compatible with F2-F3 (Mild to moderate liver fibrosis) Metavir score. 11/08/21 Gastric Emptying Study: normal 10/20/21 CT?revealed fatty liver, left renal nodule 09/2021 RUQ US: hepatomegaly liver 17 cm, fatty liver, normal gallbladder 09/2021 HIDA?scan normal ROS Const Constitutional: No fatigue ENT ENT: No difficulty swallowing Cardio Cardiology: Positive for leg pain with exertion Gastro GI: Positive for heartburn; No abdominal pain, belching, bloating, change in bowel habits, change in stool character, coffee ground emesis, constipation, cramping, diarrhea, difficulty swallowing, feeling full early, excessive flatus, incontinent of stools, Vomiting blood/hematemesis, Blood in stool, loose stools, Black,tarry stools, nausea/dyspepsia, pain with swallowing, vomiting or other Musc Musculoskeletal: Positive for joint pain, back pain, joint swelling, muscle weakness, stiffness, Arthritis and leg pain with exertion Skin Skin: No yellowing of the eye or itchy eyes Psych Psychiatric: No anxiety and No depression Endo Endocrine: No fatigue Aller/Imm Allergy/Immunologic: No itchy eyes Henok/Lymp Hematologic/Lymphatic: Positive for easy bruising; No easy bleeding Exam Const General: comfortable, well developed and well groomed GI Inspection: obesity Palpation: soft, no masses and tender in the epigastrum and in the RUQ Quality Reporting Tobacco Screening ([facility] 138) Smoking Status: Never smoker Assessment and Plan Assessment and Plan (1) P-ANCA titer positive: ?Status:?Acute ?Plan - Devorah Montejo COMPLIANCE REVIEW SPECIALIST, COMPLIANCE REVIEW SPECIALIST-C: Low positive atypical p-ANCA discovered during biochemical w/u for new NAFLD diagnosis. Refer to juice tester at [facility] at [place] ( she request not the female that she saw last time). Atypical p-ANCA can be associated with ulcerative colitis (her inflammatory markers are normal; she will have biopsies on colonoscopy), PSC (alk phos low at 37, normal GGT, low IgG, normal IgM so not likely) and autoimmune hepatitis (ASMA normal). Consider MRCP to eval further. (2) Fatty liver: ?Status:?Acute ?Plan - Devorah Montejo COMPLIANCE REVIEW SPECIALIST, COMPLIANCE REVIEW SPECIALIST-C: Discussed diagnosis in detail, treatment, handout provided. Recommend weight loss, DM2 control, lipid control. Rx ursodiol. Held off on vit E since she takes ASA and plavix. Repeat elastography in 6 mos. (3) GERD (gastroesophageal reflux disease): ?Status:?Acute ?Plan - Devorah Montejo COMPLIANCE REVIEW SPECIALIST, COMPLIANCE REVIEW SPECIALIST-C: Continue omeprazole. EGD in 01/2022 to eval for Velazquez's, has hx of Velazquez's. (4) Abdominal pain: ?Status:?Acute ?Plan - Devorah Montejo COMPLIANCE REVIEW SPECIALIST, COMPLIANCE REVIEW SPECIALIST-C: The constant epigastric/ruq pain is most bothersome symptom for her at this time. She is on PPI, pain didn't improve with sucralfate. She has hepatomegaly 17 cm, fatty liver, positive atypical p-ANCA. She has had RUQ US, CT, gastric emptying study, HIDA scan. I'll discuss case with Dr Matthews, and will get back to pt. She is already scheduled for EGD and colonoscopy. Plan Details Other Medications: ?New: ? ursodiol 250 mg? PO BID 180 tabs 1RF fatty liver ? ? I have re-examined the patient. There are no clinical changes since date of exam.
--- NOTE | 2022-02-01 08:45 | IMM_PTH ---
PATIENT: KORIN HARPER LOC: EN U#:[id number] AGE/SX: 71/F ROOM: RE02/01/[address]: Dr. Bakari Matthews DO : 1950 BED: DIS: 02/01/2022 SPEC #: [id number] RECD: 02/01/22 13:16 STATUS: SAMINA REJoann #: [id number] DOUGLAS: 02/01/22 08:[address]: Bakari Matthews DEPT: IMMUNOHISTOCHEMISTRY RECD BY: Mere Roberson ENTERED: 02/01/22 13:17 SP TYPE: IMMUNO OTHR DR: Dr. Galina Tavarez DO Tissues: C - Stomach, NOS Procedures: H Pylori (initial) PHYSICIAN & INSTITUTION [place] [address] SPECIMEN INFORMATION: Tissue Source: C ? Gastric antrum biopsy Clinical Info: P-ANCA titer positive, fatty liver, GERD, abdominal pain Specimen Number: [id number] CPT code: 65906 METHODOLOGY: Deparaffinized sections of prefer/formalin-fixed tissue or PAP/DQ stained slides are incubated with monoclonal/polyclonal antibodies/oligonucleotide probes. Localization is made via biotin free immunoperoxidase method. Appropriate controls are performed and reacted as expected. Results on target cell population are indicated in the following table: RESULTS: ANTIBODY / CLONE RESULT Block C H Pylori (polyclonal) negative These tests were developed and their performance characteristics determined by [facility]. They may not have been cleared or approved by the U.S. Food and Drug Administration. The FDA has determined that such clearance or approval is not necessary. The above immunohistochemical/dualISH markers are ordered and reviewed by the Pathologist. INTERPRETATION: C. Gastric antrum, biopsy: Negative for Helicobacter pylori organisms. AM:kalli 02/02/2022
--- NOTE | 2022-02-01 08:45 | EGD_PTH ---
PATIENT: KORIN HARPER LOC: EN U#:[id number] AGE/SX: 71/F ROOM: RE02/01/[address]: Dr. Bakari Matthews DO : 1950 BED: DIS: 02/01/2022 SPEC #: [id number] RECD: 02/01/22 10:52 STATUS: SAMINA CHILO #: [id number] DOUGLAS: 02/01/22 08:[address]: Bakari Matthews DEPT: SURGICAL PATHOLOGY RECD BY: Day Luevano ENTERED: 02/01/22 12:13 SP TYPE: EGD BIOPSY OT DR: Dr. Galina Tavarez DO Tissues: A - Duodenum, NOS B - Pylorus C - Gastric mucous membrane D - Gastric mucous membrane E - Esophagus, NOS F - Ascending colon G - Sigmoid colon biopsy Procedures: Special Stain Group II Surgery Specimen Level IV Alcian Blue/PAS (control) HEADER OPERATION: Colonoscopy with biopsy, EGD with biopsy ([facility]) PRE-OP DIAGNOSIS: P-ANCA titer positive, fatty liver, GERD, abdominal pain TISSUE SUBMITTED: A ? Duodenum biopsy, B ? Pylorus biopsy, C ? Gastric antrum biopsy for H. pylori and path, D ? Gastric polyp biopsy, E ? Distal esophagus biopsy, F ? Ascending colon biopsy, G ? Sigmoid colon biopsy MICROSCOPIC DIAGNOSIS A. Duodenum, biopsy: No pathologic change. B. Gastric pylorus, biopsy: Mild chronic gastritis. C. Gastric antrum, biopsy: Chronic gastritis. See comment. D. Gastric polyp, biopsy: Fragments of gastric mucosa with focal hyperplastic change. E. Distal esophagus, biopsy: Fragments of gastroesophageal mucosa with mild chronic inflammation. No evidence of goblet cell metaplasia. See comment. F. Ascending colon, biopsy: Fragments of tubular adenoma. G. Sigmoid colon, biopsy: No pathologic change. AM:kalli 02/02/2022 COMMENT C. The results of immunohistochemistry for Helicobacter pylori will be reported separately ([id number]). E. Alcian blue/PAS stain with matched control supports the above diagnosis. MICROSCOPIC DESCRIPTION Slides are reviewed. GROSS DESCRIPTION A - Received in fixative is one container labeled with the patient's name and designated duodenum biopsy. The specimen consists of multiple irregular fragments of light hummel soft tissue that in aggregate measure 0.6 x 0.2 x 0.1 cm. The specimen is totally submitted in one cassette. B - Received in fixative is one container labeled with the patient's name and designated pylorus biopsy. The specimen consists of one irregular fragment of light hummel soft tissue that measures 0.4 x 0.1 x 0.1 cm. The specimen is totally submitted in one cassette. C - Received in fixative is one container labeled with the patient's name and designated gastric antrum biopsy. The specimen consists of multiple irregular fragments of light hummel soft tissue that in aggregate measure 0.8 x 0.3 x 0.1 cm. The specimen is totally submitted in one cassette. D - Received in fixative is one container labeled with the patient's name and designated gastric polyp biopsy. The specimen consists of two irregular fragments of light hummel soft tissue that in aggregate measure 0.7 x 0.4 x 0.1 cm. The specimen is totally submitted in one cassette. E - Received in fixative is one container labeled with the patient's name and designated distal esophagus biopsy. The specimen consists of one irregular fragment of light hummel soft tissue that measures 0.5 x 0.2 x 0.1 cm. The specimen is totally submitted in one cassette. F - Received in fixative is one container labeled with the patient's name and designated ascending colon biopsy. The specimen consists of multiple irregular fragments of light hummel soft tissue that in aggregate measure 1 x 0.8 x 0.1 cm. The specimen is totally submitted in one cassette. G - Received in fixative is one container labeled with the patient's name and designated sigmoid colon biopsy. The specimen consists of multiple irregular fragments of light hummel soft tissue that in aggregate measure 0.5 x 0.5 x 0.1 cm. The specimen is totally submitted in one cassette. / SJ:rg 02/01/2022 TC:3 CPT: 28906 x7, 23581
--- NOTE | 2022-02-01 09:28 | OP.EGD_ITS ---
Patient Name: Dayami Hall Procedure Date: 02/01/2022 8:41 AM Date of : 1950 Age: 71 Procedure: Upper GI endoscopy Indications: Epigastric abdominal pain, Periumbilical abdominal pain, Generalized abdominal pain, Dyspepsia, Suspected esophageal reflux Providers: Bakari Matthews DO Medicines: Monitored Anesthesia Care Patient Profile: This is a 71 year old female. Complications: No immediate complications. Procedure: Pre-Anesthesia Assessment: - Prior to the procedure, a History and Physical was performed, and patient medications and allergies were reviewed. The patient is competent. The risks and benefits of the procedure and the sedation options and risks were discussed with the patient. All questions were answered and informed consent was obtained. Patient identification and proposed procedure were verified by the physician in the pre-procedure area. Mental Status Examination: alert and oriented. Airway Examination: normal oropharyngeal airway and neck mobility. Respiratory Examination: clear to auscultation. CV Examination: normal. Prophylactic Antibiotics: The patient does not require prophylactic antibiotics. Prior Anticoagulants: The patient has taken no previous anticoagulant or antiplatelet agents. ASA Grade Assessment: II - A patient with mild systemic disease. After reviewing the risks and benefits, the patient was deemed in satisfactory condition to undergo the procedure. The anesthesia plan was to use moderate sedation / analgesia (conscious sedation). Immediately prior to administration of medications, the patient was re-assessed for adequacy to receive sedatives. The heart rate, respiratory rate, oxygen saturations, blood pressure, adequacy of pulmonary ventilation, and response to care were monitored throughout the procedure. The physical status of the patient was re-assessed after the procedure. After obtaining informed consent, the endoscope was passed under direct vision. Throughout the procedure, the patient's blood pressure, pulse, and oxygen saturations were monitored continuously. The colonoscope was introduced through the mouth, and advanced to the second part of duodenum. The upper GI endoscopy was accomplished without difficulty. The patient tolerated the procedure well. Scope In: 8:54:24 AM Scope Out: 9:01:45 AM Total Procedure Duration Time 0 hours 7 minutes 21 seconds Findings: The Z-line was irregular and was found 37 cm from the incisors. Biopsies were taken with a cold forceps for histology. Verification of patient identification for the specimen was done. Estimated blood loss was minimal. Three 5 mm sessile polyps with no stigmata of recent bleeding were found in the gastric fundus. The polyp was removed with a cold snare. Resection and retrieval were complete. Verification of patient identification for the specimen was done. Estimated blood loss was minimal. Patchy mildly erythematous mucosa without bleeding was found in the gastric antrum. Biopsies were taken with a cold forceps for histology. Verification of patient identification for the specimen was done. Estimated blood loss was minimal. Patchy mildly erythematous mucosa without active bleeding and with no stigmata of bleeding was found in the duodenal bulb. Biopsies were taken with a cold forceps for histology. Verification of patient identification for the specimen was done. Estimated blood loss was minimal. Impression: - Z-line irregular, 37 cm from the incisors. Biopsied. - Three gastric polyps. Resected and retrieved. - Erythematous mucosa in the antrum. Biopsied. - Erythematous duodenopathy. Biopsied. Recommendation: - Discharge patient to home. - Resume previous diet. - Continue present medications. - Await pathology results. - Repeat upper endoscopy in 1 year for surveillance based on pathology results. Procedure Code(s): --- Professional --- 17634, Esophagogastroduodenoscopy, flexible, transoral; with removal of tumor(s), polyp(s), or other lesion(s) by snare technique 59777, 59,51, Esophagogastroduodenoscopy, flexible, transoral; with biopsy, single or multiple CPT copyright 2017 [employer]. All rights reserved. The codes documented in this report are preliminary and upon midlevel provider review may be revised to meet current compliance requirements. Bakari Matthews DO 02/01/2022 9:27:32 AM This report has been signed electronically. Number of Addenda: 1 Note Initiated On: 02/01/2022 8:41 AM Addendum Number: 1 Addendum Date: 05/03/2022 6:30:03 AM MAC was used as sedation for this procedure. Bakari Matthews DO 05/03/2022 6:30:06 AM This report has been signed electronically.
--- NOTE | 2022-02-01 09:29 | OP.CCLET_ITS ---
05/03/[address] [facility] [address] Re : Upper GI endoscopy procedure for Dayami Hall Dear Dr. Tavarez This procedure was performed on Tuesday, February 01, 2022. My impressions and recommendations are as follows: Impressions : - Z-line irregular, 37 cm from the incisors. Biopsied. - Three gastric polyps. Resected and retrieved. - Erythematous mucosa in the antrum. Biopsied. - Erythematous duodenopathy. Biopsied. Recommendations : - Discharge patient to home. - Resume previous diet. - Continue present medications. - Await pathology results. - Repeat upper endoscopy in 1 year for surveillance based on pathology results. My findings are described in the full procedure note, which is enclosed. If I can be of further assistance, please feel free to contact me at . Sincerely, Bakari Matthews, 02/01/2022 9:27:32 AM This report has been signed electronically.
--- NOTE | 2022-02-01 09:34 | OP.COLON_ITS ---
Patient Name: Dayami Hall Procedure Date: 02/01/2022 9:02 AM Date of : 1950 Age: 71 Procedure: Colonoscopy Indications: Generalized abdominal pain Providers: Bakari Matthews DO Medicines: Propofol per Anesthesia Patient Profile: This is a 71 year old female. Refer to note in patient chart for documentation of history and physical. Last Colonoscopy: none. The patient's first colonoscopy is today. Complications: No immediate complications. Procedure: Pre-Anesthesia Assessment: - Prior to the procedure, a History and Physical was performed, and patient medications and allergies were reviewed. The patient is competent. The risks and benefits of the procedure and the sedation options and risks were discussed with the patient. All questions were answered and informed consent was obtained. Patient identification and proposed procedure were verified by the physician in the pre-procedure area. Mental Status Examination: alert and oriented. Airway Examination: normal oropharyngeal airway and neck mobility. Respiratory Examination: clear to auscultation. CV Examination: normal. Prophylactic Antibiotics: The patient does not require prophylactic antibiotics. Prior Anticoagulants: The patient has taken no previous anticoagulant or antiplatelet agents. ASA Grade Assessment: II - A patient with mild systemic disease. After reviewing the risks and benefits, the patient was deemed in satisfactory condition to undergo the procedure. The anesthesia plan was to use moderate sedation / analgesia (conscious sedation). Immediately prior to administration of medications, the patient was re-assessed for adequacy to receive sedatives. The heart rate, respiratory rate, oxygen saturations, blood pressure, adequacy of pulmonary ventilation, and response to care were monitored throughout the procedure. The physical status of the patient was re-assessed after the procedure. After I obtained informed consent, the scope was passed under direct vision. Throughout the procedure, the patient's blood pressure, pulse, and oxygen saturations were monitored continuously. The colonoscope was introduced through the anus and advanced to the terminal ileum. The colonoscopy was performed with ease. The patient tolerated the procedure well. The quality of the bowel preparation was good. Scope In: 9:04:44 AM Scope Withdrawal Time 0 hours 11 minutes 59 seconds Scope Out: 9:20:02 AM Total Procedure Duration Time 0 hours 15 minutes 18 seconds Findings: Multiple small and large-mouthed diverticula were found in the recto-sigmoid colon, sigmoid colon and descending colon. There was no evidence of diverticular bleeding. An area of congested mucosa was found in the sigmoid colon. Biopsies were taken with a cold forceps for histology. Verification of patient identification for the specimen was done. Estimated blood loss was minimal. Three sessile polyps were found in the ascending colon. The polyps were 1 to 2 mm in size. These polyps were removed with a cold snare. Resection and retrieval were complete. Moderate rectal prolapse was present. Impression: - Diverticulosis in the recto-sigmoid colon, in the sigmoid colon and in the descending colon. There was no evidence of diverticular bleeding. - Congested mucosa in the sigmoid colon. Biopsied. - Three 1 to 2 mm polyps in the ascending colon, removed with a hot snare. Resected and retrieved. - Rectal prolapse. Recommendation: - Discharge patient to home. - Resume previous diet. - Continue present medications. - Await pathology results. - Repeat colonoscopy in 3 years for surveillance. - Return to GI office. Procedure Code(s): --- Professional --- 11108, Colonoscopy, flexible; with removal of tumor(s), polyp(s), or other lesion(s) by snare technique [id number], 59, Colonoscopy, flexible; with biopsy, single or multiple CPT copyright 2017 [employer]. All rights reserved. The codes documented in this report are preliminary and upon assembly associate review may be revised to meet current compliance requirements. Bakari Matthews DO 02/01/2022 9:33:48 AM This report has been signed electronically. Number of Addenda: 1 Note Initiated On: 02/01/2022 9:02 AM Addendum Number: 1 Addendum Date: 05/03/2022 6:30:15 AM MAC was used as sedation for this procedure. Bakari Matthews DO 05/03/2022 6:30:19 AM This report has been signed electronically.
--- NOTE | 2022-02-01 09:35 | OP.CCLET_ITS ---
05/03/2022 Galina Tavarez [address] [facility] [place] [address] Re : Colonoscopy procedure for Dayami Hall Dear Dr. Tavarez This procedure was performed on Tuesday, February 01, 2022. My impressions and recommendations are as follows: Impressions : - Diverticulosis in the recto-sigmoid colon, in the sigmoid colon and in the descending colon. There was no evidence of diverticular bleeding. - Congested mucosa in the sigmoid colon. Biopsied. - Three 1 to 2 mm polyps in the ascending colon, removed with a hot snare. Resected and retrieved. - Rectal prolapse. Recommendations : - Discharge patient to home. - Resume previous diet. - Continue present medications. - Await pathology results. - Repeat colonoscopy in 3 years for surveillance. - Return to GI office. My findings are described in the full procedure note, which is enclosed. If I can be of further assistance, please feel free to contact me at . Sincerely, Bakari Matthews, 02/01/2022 9:33:48 AM This report has been signed electronically.
== END 2022-02-01 10:17 | disposition home or self-care (01) ==
LOC: EN 07:44 → AC 07:45
PROVIDERS: PCP Family Medicine; Referring Provider Family Medicine; Visit Provider Internal Medicine Gastroenterology
PROC: 0DJD8ZZ Inspection of Lower Intestinal Tract, Via Natural or Artificial Opening Endoscopic (ICD-10-PCS; CPT 45378; principal; 2022-02-01 08:40)
DX: D12.2 Benign neoplasm of ascending colon (principal); E11.9 Type 2 diabetes mellitus without complications; Z79.4 Long term (current) use of insulin; K63.89 Other specified diseases of intestine; K21.00 Gastro-esophageal reflux disease with esophagitis, without bleeding; K29.50 Unspecified chronic gastritis without bleeding; K62.3 Rectal prolapse; K57.30 Diverticulosis of large intestine without perforation or abscess without bleeding; K31.89 Other diseases of stomach and duodenum; K31.7 Polyp of stomach and duodenum; K76.0 Fatty (change of) liver, not elsewhere classified; E66.9 Obesity, unspecified; I25.10 Atherosclerotic heart disease of native coronary artery without angina pectoris; I10 Essential (primary) hypertension; I25.2 Old myocardial infarction; G47.30 Sleep apnea, unspecified; E03.9 Hypothyroidism, unspecified; Z95.5 Presence of coronary angioplasty implant and graft; Z79.82 Long term (current) use of aspirin; Z79.899 Other long term (current) drug therapy; Z79.84 Long term (current) use of oral hypoglycemic drugs; Z68.33 Body mass index [BMI] 33.0-33.9, adult; Z79.01 Long term (current) use of anticoagulants
CPT/HCPCS: 45380; 45385; 43239; 43251; 88305; 88313; 88342; J7120; J2405

== ENCOUNTER → 2022-04-12 | Outpatient (CLI) | payer MEDICARE, OTHER, SELFPAY ==
--- NOTE | 2022-04-12 15:03 | RAD_ITS ---
EXAM: XR LEFT FINGERS, 2 OR MORE VIEWS CLINICAL INDICATION: PAIN TECHNIQUE: Frontal, lateral and oblique views of the fingers of the left hand. This report was created using [employer] report generation technology. COMPARISON: None. FINDINGS: BONES/JOINTS: There is degenerative arthrosis of the carpometacarpal articulation of the thumb. No acute fracture. No subluxation. Normal alignment. No sclerotic or destructive changes observed. SOFT TISSUES: Unremarkable. No soft tissue swelling or gas. No radiopaque foreign body. RAD/Finger(s) Min 2 Views IMPRESSION: There is degenerative arthrosis of the carpometacarpal articulation of the thumb. Electronically Signed: Fabio Valle MD at 15:44 EDT ,
--- NOTE | 2022-04-12 15:03 | RAD_ITS ---
EXAM: XR RIGHT FINGERS, 2 OR MORE VIEWS CLINICAL INDICATION: PAIN TECHNIQUE: Frontal, lateral and oblique views of the fingers of the right hand. This report was created using [employer] report generation technology. COMPARISON: None. FINDINGS: BONES/JOINTS: Unremarkable. No acute fracture. No subluxation. Normal alignment. Preservation of the joint space. No sclerotic or destructive changes observed. SOFT TISSUES: Unremarkable. No soft tissue swelling or gas. No radiopaque foreign body. RAD/Finger(s) Min 2 Views IMPRESSION: Negative x-rays of the visualized right fingers. Electronically Signed: Fabio Valle MD at 15:44 EDT ,
== END | disposition home or self-care (01) ==
LOC: MTRAD 15:01
PROVIDERS: PCP Family Medicine; Referring Provider Family Medicine; Visit Provider Family Medicine
DX: M79.644 Pain in right finger(s) (principal); M79.645 Pain in left finger(s)
CPT/HCPCS: 73140

== ENCOUNTER → 2022-05-23 | Outpatient (CLI) | payer MEDICARE, OTHER, SELFPAY ==
--- NOTE | 2022-05-23 09:32 | BI_ITS ---
MAMMOGRAPHY - BILATERAL SCREENING REASON FOR EXAM: Female, 71 years old. Routine annual screening examination. PERTINENT HISTORY: Non-contributory. TECHNIQUE: Digital bilateral breast elan (3D mammographic acquisition) in the CC and MLO projections. 2-D mediolateral oblique (MLO) and craniocaudad (CC) views of both breasts were obtained. CAD: Full Field Digital Mammography with Computer Added Detection was performed. COMPARISON: Comparison is made with prior study dated 05/17/2021 and 04/28/2020. FINDINGS: Breast Composition: The breasts are heterogeneously dense, which may obscure small masses. There are no dominant masses or suspicious calcifications. Stable benign-appearing fat-containing axillary lymph nodes. No other significant abnormalities are identified. There has been no significant change since the prior study. BI/SCRN MAMM (CAD)W/ELAN BILAT IMPRESSION: Stable bilateral screening mammogram. Yearly follow-up mammogram recommended. (A) ASSESSMENT CATEGORY: BIRADS Category 2: Benign. A letter regarding these results will be sent to the patient by the facility within 30 days. Approximately 10% of breast cancers are not detected by mammography. A normal mammogram should not delay biopsy of a clinically suspicious abnormality. [id number] Electronically Signed: Zachary Taylor MD at 10:33 EDT ,
== END | disposition home or self-care (01) ==
LOC: OPBI 09:31
PROVIDERS: PCP Family Medicine; Visit Provider Nurse Practitioner Women's Health
DX: Z12.31 Encounter for screening mammogram for malignant neoplasm of breast (principal)
CPT/HCPCS: 77063; 77067

== ENCOUNTER → 2022-07-05 | Outpatient (CLI) | payer MEDICARE, OTHER, SELFPAY ==
[2022-07-05 10:50] LABS: AST(SGOT) 27 U/L (15-37); Alanine Aminotransfer ALT/SGPT 41 U/L (13-56); Albumin, Serum 4.4 g/dL (3.2-5.0); Alkaline Phosphatase 40 U/L (45-117); Bilirubin, Direct 0.15 mg/dL (0.00-0.30); Cholesterol 119 mg/dL (200); Globulin 2.8 g/dL (2.2-4.2); High Density Lipoprotein 39 mg/dL; Protein, Total 7.2 g/dL (6.4-8.2); Triglycerides 213 mg/dL; Very Low Density Lipoprotein 43 mg/dL (5-40)
== END | disposition home or self-care (01) ==
LOC: MTLAB 08:40
PROVIDERS: PCP Family Medicine; Referring Provider Nurse Practitioner Family; Visit Provider Nurse Practitioner Family
DX: E78.00 Pure hypercholesterolemia, unspecified (principal)
CPT/HCPCS: 36415; 80061; 80076

== ENCOUNTER → 2022-08-02 | Outpatient (CLI) | payer MEDICARE, OTHER, SELFPAY ==
[2022-08-02 10:06] LABS: Free T3 1.8 pg/mL (2.18-3.98); T4 Free Direct 1.22 ng/dL (0.76-1.46); Thyroid Stim Hormone (TSH) 5.38 uIU/mL (0.358-3.74)
[2022-08-03 16:08] LABS: Cytoplasmic Ab (C-ANCA) <1:20 titer (Neg:<1:20)
[2022-08-04 19:30] LABS: Perinuclear Ab (P-ANCA) <1:20 titer (Neg:<1:20)
== END | disposition home or self-care (01) ==
PROVIDERS: Nurse Practitioner Adult Health; PCP Family Medicine; Referring Provider Family Medicine; Visit Provider Family Medicine
DX: E03.9 Hypothyroidism, unspecified (principal); R76.8 Other specified abnormal immunological findings in serum
CPT/HCPCS: 36415; 84439; 84443; 84481; 86256

== ENCOUNTER → 2022-08-14 | Outpatient (CLI) | payer MEDICARE, OTHER, SELFPAY ==
--- NOTE | 2022-08-14 08:14 | US_ITS ---
STUDY: ABDOMINAL ULTRASOUND - RIGHT UPPER QUADRANT REASON FOR VISIT: Female, 71 years old repeat elastography -- JACOBO TECHNIQUE: Ultrasound evaluation of the right upper quadrant was performed with real-time and static zacarias-scale imaging. TECHNICAL QUALITY: Adequate. COMPARISON: Comparison is made with prior study dated 10/17/2021. FINDINGS: Liver: The liver measures 16.7 cm. There is increased echogenicity consistent with fatty infiltration. The bile ducts are within normal limits. There is hepatic color flow. The direction of portal flow is hepatopetal. There is no demonstrated mass lesion. Gallbladder: Normal distended gallbladder. The gallbladder wall measures 2.3 mm. There is a negative sonographic Thibodeaux''s sign. There is no pericholecystic fluid. There are no gallstones. Common Bile Duct (C.B.D.): The common bile duct measures 3.7 mm. Pancreas: Normal size of the head, body and tail of the pancreas. There is normal echogenicity of the pancreas. There is no demonstrated pancreatic mass or cyst. Right Kidney: Normal size of the right kidney. The right kidney measures 11.7 cm x 5.9 cm x 5.1 cm. Normal renal cortex. The right cortex measures 1.4 cm. There is no demonstrated renal mass or cyst. There is no right hydronephrosis. US/Abdomen Limited IMPRESSION: Diffuse fatty infiltration of the liver. Electronically Signed: Zachary Taylor MD at 14:39 EST ,
--- NOTE | 2022-08-14 08:14 | US_ITS ---
STUDY: ABDOMINAL ULTRASOUND - ELASTOGRAPHY REASON FOR VISIT: Female, 71 years old. Fatty infiltration of the liver. TECHNIQUE: Liver stiffness measurements were obtained on a [employer] RS 85 ultrasound machine using a CA 1-7 probe following the SRU guidelines. 3 measurements were obtained using a 2-D-SWE method. TheIQR/M was 17% suggesting a quality data set. TECHNICAL QUALITY: Adequate. COMPARISON: Comparison is made with prior study of 11/04/2021. FINDINGS: Liver: Fatty infiltration of the liver. Median liver stiffness measured 6.1 kPa. US/Elastography Parenchyma/Organ IMPRESSION: Liver stiffness measures 6.1 kPa compatible with F2-F3 (Mild to moderate liver fibrosis) Metavir score. Electronically Signed: Zachary Taylor MD at 14:37 EST ,
== END | disposition home or self-care (01) ==
LOC: US 08:13
PROVIDERS: PCP Family Medicine; Referring Provider Nurse Practitioner Adult Health; Visit Provider Nurse Practitioner Adult Health
DX: K76.0 Fatty (change of) liver, not elsewhere classified (principal)
CPT/HCPCS: 76705; 76981

== ENCOUNTER → 2022-09-19 | Outpatient (CLI) | payer MEDICARE, OTHER, SELFPAY ==
[2022-09-19 09:50] LABS: Absolute Lymphocyte Count 1.16 X10^3/uL (0.83-4.51); Basophil# 0.05 X10^3/uL; Basophil% 0.6 % (0-1); Eosinophil# 0.21 X10^3/uL; Eosinophils% 2.5 % (0-5); Hematocrit 38.2 % (37-47); Hemoglobin 12.6 g/dL (12.0-15.0); Lymphocyte # 1.16 X10^3/ul (0.83-4.51); Lymphocyte % 13.9 % (19-41); Mean Corpuscular Hgb 32.1 pg (27.0-32.0); Mean Corpuscular Volume 97.2 fL (81-99); Mean Platelet Vol. 10.1 fl (6.2-12.0); Monocyte# 0.89 X10^3/uL; Monocyte% 10.7 % (0-10); NRBC Flagged by Analyzer 0 % (0-5); Neutrophil # 5.98 X10^3/uL (2.7-7.7); Neutrophil % 71.8 % (47-70); Platelet Count 270 K/mm3 (150-450); RBC Distribution Width CV 13.8 % (11.6-14.6); RBC Distribution Width SD 49.5 fl (35.1-43.9); Red Blood Count 3.93 M/mm3 (4.2-5.4); White Blood Count 8.3 K/mm3 (4.4-11.0)
[2022-09-19 10:25] LABS: BNP,B-Type NATRIURETIC PEPTIDE 56.4 pg/mL (0-100)
[2022-09-19 10:26] LABS: Anion Gap 6 (5-15); BUN 22 mg/dL (7-18); BUN/Creat Ratio 23.3 RATIO (10-20); Calcium,Total 9.6 mg/dL (8.5-10.1); Chloride 108 mmol/L (98-107); Creatinine, Serum 0.94 mg/dL (0.55-1.02); EST Glomerular Filtration Rate 62 mL/min (>60); Est Glom Filt Rate - Afr Amer 75 mL/min (>60); Glucose 142 mg/dL (74-106); Potassium 4.4 mmol/L (3.5-5.1); Sodium Level 140 mmol/L (136-145)
== END | disposition home or self-care (01) ==
LOC: LAB 09:25
PROVIDERS: PCP Family Medicine; Visit Provider Nurse Practitioner Family
DX: R06.00 Dyspnea, unspecified (principal); I10 Essential (primary) hypertension; E78.5 Hyperlipidemia, unspecified; Z95.5 Presence of coronary angioplasty implant and graft
CPT/HCPCS: 36415; 80048; 83880; 85025

== ENCOUNTER → 2022-10-09 | Outpatient (CLI) | payer MEDICARE, OTHER, SELFPAY ==
--- NOTE | 2022-10-09 06:29 | ECHOD_ITS ---
Reason For Study: NAFLD Procedure This was a 2D Doppler, Color Flow transthoracic echocardiogram. Exam performed in department. Left Ventricle Normal LV size. Left ventricular systolic function is normal. The estimated ejection fraction is 65 %. Stage 1 diastolic dysfunction. No regional wall motion abnormalities noted. Right Ventricle Normal RV size. Normal systolic function. Atria Normal left atrium. Normal right atrium. Mitral Valve Normal mitral valve. Tricuspid Valve Normal tricuspid valve. Aortic Valve Normal aortic valve. Trisinus/trileaflet aortic valve. Pulmonic Valve Normal pulmonic valve. Great Vessels Normal aortic root. The pulmonary artery is normal size. Normal inferior vena cava. Pericardium/Pleural No pericardial effusion. MMode/2D Measurements & Calculations Ao root diam: 3.2 cm LAV(MOD-sp4): 32.8 ml LVAd ap4: 21.0 cm2 LVLd ap4: 6.7 cm EDV(MOD-sp4): 53.0 ml EDV(sp4-el): 55.4 ml LVAs ap4: 10.5 cm2 LVLs ap4: 5.8 cm ESV(MOD-sp4): 17.6 ml ESV(sp4-el): 16.1 ml EF(MOD-sp4): 66.8 % EF(sp4-el): 71.0 % SV(MOD-sp4): 35.4 ml SV(sp4-el): 39.4 ml LA A4 area: 14.2 cm2 LA dimension(2D): 3.3 cm RA A4 area: 9.5 cm2 Time Measurements MV dec time: 0.09 sec Doppler Measurements & Calculations MV E max rodrigo: 99.4 cm/sec Lat Peak E' Rodrigo: 10.8 cm/sec Med Peak E' Rodrigo: 5.6 cm/sec MV A max rodrigo: 124.8 cm/sec E/E' lat: 9.2 E/E' med: 17.6 MV E/A: 0.80 MV V2 max: 119.0 cm/sec MV dec slope: 1114 cm/sec2 Ao V2 max: 175.6 cm/sec MV max P.7 mmHg Ao max P.4 mmHg MV V2 mean: 78.0 cm/sec Ao V2 mean: 118.6 cm/sec MV mean P.8 mmHg Ao mean P.5 mmHg MV V2 VTI: 26.5 cm Ao V2 VTI: 38.6 cm AV (velocity ratio): 0.65 LV V1 max: 126.0 cm/sec PA V2 max: 99.5 cm/sec LV V1 max P.4 mmHg PA V2 mean: 69.9 cm/sec LV V1 mean P.6 mmHg LV V1 mean: 89.3 cm/sec LV V1 VTI: 25.2 cm ECHO/Echo Complete Interpretation Summary Normal LV size. Left ventricular systolic function is normal. The estimated ejection fraction is 65 %. Stage 1 diastolic dysfunction. Ordering Physician: Jose De Jesus Mendez Referring Physician: Galina Tavarez Performed By: Barbara Calle RCS
--- NOTE | 2022-10-09 11:07 | STRESSREP_ITS ---
Stress Test Report Exercise myocardial perfusion stress test. 72-year-old lady with a history of dyspnea Stress protocol: Resting EKG demonstrates sinus tachycardia with a rate of 100 bpm resting blood pressure is 158/78 mmHg. The patient exercised according to the regular Terry protocol for a total duration of 3 minutes and 9 seconds attaining a maximum hea rt rate of 160 bpm which was 108% of maximum predicted heart rate; the maximum workload was 4.9 metabolic equivalents. At rest there were no ST or T wave changes noted to suggest ischemia and at peak exercise upsloping ST changes only were noted which did not meet the criteria for ischemia. No clinical angina was noted the test was terminated due to the target heart rate being achieved/fatigue. The peak blood pressure was 190/72 mmHg. Rate-pressure product was 30,400. Myocardial perfusion protocol. 10.6 mCi of technetium 99m sestamibi was injected at rest. The patient exercised according to regular Terry protocol for total duration of 3 minutes and 9 seconds and at peak exercise 33.1 mCi of technetium 99m sestamibi was injected stress images were obtained stress and rest images were reconstructed in comparing the short axis vertical long and horizontal long axis. Gated images were also obtained. Perfusion SPECT analysis: Review of the stress images demonstrate normal uptake of tracer noted in all areas of the myocardium. The resting images similarly demonstrate normal uptake of tracer noted in all areas of the myocardium. No areas of reversibility are noted to suggest ischemia no previous infarct was noted. Gated SPECT analysis: The gated ejection fraction is 78%. Conclusion: Normal exercise myocardial perfusion stress test at a low workload, which could affect sensitivity for detection of ischemia Preserved ejection fraction.
== END | disposition home or self-care (01) ==
LOC: CVS 06:28
PROVIDERS: PCP Family Medicine; Visit Provider Nurse Practitioner Family
DX: R06.09 Other forms of dyspnea (principal); I10 Essential (primary) hypertension; E78.5 Hyperlipidemia, unspecified; Z95.5 Presence of coronary angioplasty implant and graft
CPT/HCPCS: 78452; 93017; 93306; A9500; A4216

== ENCOUNTER → 2022-10-16 | Outpatient (CLI) | payer MEDICARE, OTHER, SELFPAY ==
[2022-10-16 13:13] LABS: Anion Gap 6 (5-15); BUN 28 mg/dL (7-18); BUN/Creat Ratio 29.8 RATIO (10-20); Calcium,Total 9.1 mg/dL (8.5-10.1); Chloride 107 mmol/L (98-107); Creatinine, Serum 0.94 mg/dL (0.55-1.02); EST Glomerular Filtration Rate 62 mL/min (>60); Est Glom Filt Rate - Afr Amer 75 mL/min (>60); Free T3 1.5 pg/mL (2.18-3.98); Glucose 156 mg/dL (74-106); Potassium 4.5 mmol/L (3.5-5.1); Sodium Level 140 mmol/L (136-145); T4 Free Direct 1.12 ng/dL (0.76-1.46); Thyroid Stim Hormone (TSH) 4.97 uIU/mL (0.358-3.74)
== END | disposition home or self-care (01) ==
LOC: LAB 11:34
PROVIDERS: Nurse Practitioner Family; PCP Family Medicine; Referring Provider Family Medicine; Visit Provider Family Medicine
DX: E03.9 Hypothyroidism, unspecified (principal)
CPT/HCPCS: 36415; 80048; 84439; 84443; 84481

== ENCOUNTER 2022-11-06 08:12 | Day surgery (SDC) | payer MEDICARE, OTHER, SELFPAY ==
--- NOTE | 2022-11-06 | ESO_PTH ---
PATIENT: KORIN HARPER LOC: EN U#:[id number] AGE/SX: 72/F ROOM: RE11/06/[address]: Dr. Bakari Matthews DO : 1950 BED: DIS: 11/06/2022 SPEC #: [id number] RECD: 11/06/22 12:55 STATUS: SAMINA REQ #: [id number] DOUGLAS: 11/06/22 00:[address]: Bakari Matthews DEPT: SURGICAL PATHOLOGY RECD BY: Ryne Bond ENTERED: 11/06/22 12:56 SP TYPE: MARIANELA GUNDERSON DR: Dr. Galina Tavarez DO Tissues: A - Duodenum, NOS B - Esophagus, NOS Procedures: Special Stain Group II Surgery Specimen Level IV Alcian Blue/PAS (control) HEADER OPERATION: EGD ([facility]), biopsy PRE-OP DIAGNOSIS: Nonalcoholic fatty liver disease, P-ANCA titer positive, diarrhea TISSUE SUBMITTED: A ? Gastric body biopsy, B ? Distal esophagus biopsy MICROSCOPIC DIAGNOSIS A. Gastric body, biopsy: Mild gastritis. See microscopic description and comment. B. Distal esophagus, biopsy: Fragments of gastroesophageal mucosa with chronic inflammation. Intestinal metaplasia (goblet cell metaplasia) not identified. See comment. SJ:rg 11/07/2022 COMMENT A. The results of immunohistochemistry for Helicobacter pylori will be reported separately ([id number]). B. Alcian blue/PAS stain with matched control is used in the evaluation of the specimen. MICROSCOPIC DESCRIPTION Slides are reviewed. A. The specimen shows fragments of gastric mucosa with chronic inflammatory cell infiltrates in the lamina propria consisting of lymphocytes and plasma cells, consistent with mild chronic gastritis. GROSS DESCRIPTION A - Received in fixative is one container labeled with the patient's name and designated gastric body biopsy. The specimen consists of one irregular fragment of light hummel soft tissue that measures 0.3 x 0.3 x 0.1 cm. The specimen is totally submitted in one cassette. B - Received in fixative is one container labeled with the patient's name and designated distal esophagus biopsy. The specimen consists of two irregular fragments of light hummel soft tissue that in aggregate measure 0.8 x 0.4 x 0.1 cm. The specimen is totally submitted in one cassette. / MARIELLE:kalli 11/06/2022 TC:3 CPT: 87779 x2
--- NOTE | 2022-11-06 | IMM_PTH ---
PATIENT: KORIN HARPER LOC: EN U#:[id number] AGE/SX: 72/F ROOM: RE11/06/[address]: Dr. Bakari Matthews DO : 1950 BED: DIS: 11/06/2022 SPEC #: [id number] RECD: 11/07/22 14:04 STATUS: SAMINA REJoann #: [id number] DOUGLAS: 11/06/22 00:[address]: Bakari Matthews DEPT: IMMUNOHISTOCHEMISTRY RECD BY: Mere Roberson ENTERED: 11/07/22 14:05 SP TYPE: IMMUNO OTHR DR: Dr. Galina Tavarez DO Tissues: A - Stomach, NOS Procedures: H Pylori (initial) PHYSICIAN & INSTITUTION [place] [address] SPECIMEN INFORMATION: Tissue Source: A ? Gastric body biopsy Clinical Info: Nonalcoholic fatty liver disease, P-ANCA titer positive, diarrhea Specimen Number: [id number] CPT code: 87939 METHODOLOGY: Deparaffinized sections of prefer/formalin-fixed tissue or PAP/DQ stained slides are incubated with monoclonal/polyclonal antibodies/oligonucleotide probes. Localization is made via biotin free immunoperoxidase method. Appropriate controls are performed and reacted as expected. Results on target cell population are indicated in the following table: RESULTS: ANTIBODY / CLONE RESULT Block A H Pylori (polyclonal) negative These tests were developed and their performance characteristics determined by [facility]. They may not have been cleared or approved by the U.S. Food and Drug Administration. The FDA has determined that such clearance or approval is not necessary. The above immunohistochemical/dualISH markers are ordered and reviewed by the Pathologist. INTERPRETATION: A. Gastric body, biopsy: Negative for Helicobacter pylori organisms. SJ:kalli 11/08/2022
[2022-11-06] MEDS: Lactated Ringers 1,000 ML 15 ML IV (08:39)
[2022-11-06 08:42] VITALS: BP 141/70; PULSE 71; RESP 18; TEMP 36.9; O2SAT 98; BMI 35.9
[2022-11-06 09:05] LABS: Bedside Glucose 127 mg/dL (74-106)
--- NOTE | 2022-11-06 09:12 | PCM.HP.BLA ---
History and Physical Date of Admission: 11/06/22 1 F who presents to the office today for 3 month f/u GERD, NAFLD, diarrhea Tried white diet per Dr Matthews's recommendation, found it difficult but she is paying attn to her carbs, has increased fiber, decreased simple carbs. She doesn't want weight loss medication. Hgb A1c decreased to 7.3, she was taken off insulin. GERD -- stable on PPI omeprazole 40 mg daily Diarrhea -- stable, she is satisfied with current bowel pattern. Has occas urgent diarrhea, not bothersome at this time. Dr Mtathews notes fecal incontinence due to rectal prolapse is a lot of the issue with her diarrhea. NAFLD -- F1-F2 by FIB-4 calculation. Elastography 11/04/21 7.1 kPa. Takes ursodiol bid. Positive atypical p-ANCA. [facility] Rheum wouldn't see her. Abd pain -- she had multiple areas of abd pains, we had her resume gabapentin 300 mg bid in 11/2021 (took it for pain behind left knee). No c/o abd pain today. Dayami established with this clinic .11.18 following [facility] ED presentation 10.20.21 with epigastric/upper abdominal pain, nausea and decreased appetite. Biochemical workup, EKG and CT scan performed without acute finding and she was discharged home with Zofran. HIDA Scan .06.20 with normal physiologic gallbladder response. US RUQ 10.17.21 liver measurement 17cm with fatty infiltration; negative Thibodeaux?s sign; normal pancreas. CT abd/pel 10.20.21 noting hepatic steatosis; hypodense renal nodule; uterine fibroid; asymmetrical atrophy of right iliopsoas muscle. Gastric emptying study 11.08.21 is 30% at 30 minutes, normal. EGD and colonoscopy 02.01.22. EGD found irregular Zline 37cm from incisors; three gastric hyperplastic polyps; erythematous antrum, gastritis, and duodenopathy. H.Pylori negative. Colonoscopy found diverticulosis of RS, sigmoid and descending colons; congested mucosa of sigmoid colon; three 1-2mm TA polyps, removed; rectal prolapse. Repeat in 01/2025. ROS Const Constitutional: No fatigue ENT ENT: No difficulty swallowing Gastro GI: No abdominal pain, belching, bloating, change in bowel habits, change in stool character, coffee ground emesis, constipation, cramping, diarrhea, heartburn, difficulty swallowing, feeling full early, excessive flatus, incontinent of stools, Vomiting blood/hematemesis, Blood in stool, loose stools, Black,tarry stools, nausea/dyspepsia, pain with swallowing, vomiting or other Musc Musculoskeletal: Positive for joint pain, stiffness and Arthritis Skin Skin: No yellowing of the eye or itchy eyes Psych Psychiatric: No anxiety and No depression Endo Endocrine: No fatigue Aller/Imm Allergy/Immunologic: No itchy eyes Henok/Lymp Hematologic/Lymphatic: Positive for easy bruising; No easy bleeding Exam Const General: cooperative, healthy appearing and comfortable Orientation: alert, awake and oriented x3 Quality Reporting Tobacco Screening ([facility] 138) Smoking Status: Never smoker Assessment and Plan Assessment and Plan (1) NAFLD (nonalcoholic fatty liver disease): ?Status:?Acute ?Plan: Due to DM, obesity. Update liver elastography. She is on ursodiol bid. f/u 6 mos? (2) P-ANCA titer positive: ?Status:?Acute ?Plan: Repeat lab [facility] Rheum declined to see her (3) Diarrhea: ?Status:?Chronic ?Plan: Not currently problematic Fecal incontinence due to rectal prolapse is part of the issue, but not overly bothersome Better with increased fiber in diet ? ? ? Orders: Orders Abdomen Limited Today K76.0 - Fatty (change of) liver, not elsewhere classified ? Elastography Parenchyma/Organ Today K76.0 - Fatty (change of) liver, not elsewhere classified ? ANCA Today R76.8 - Other specified abnormal immunological findings in serum ? Medications: Refilled ursodiol 250 mg? PO BID 180 tabs 1RF fatty liver ? ? I have examined the patient and the H&P has been reviewed. There are no clinical changes since date of exam.
[2022-11-06 09:30] VITALS: BP 125/64; BP 141/70; PULSE 72; RESP 16; TEMP 36.1; O2SAT 92
--- NOTE | 2022-11-06 09:31 | OP.EGD_ITS ---
Patient Name: Dayami Hall Procedure Date: 11/06/2022 9:16 AM Date of : 1950 Age: 72 Procedure: Upper GI endoscopy Indications: Epigastric abdominal pain, Functional Dyspepsia Providers: Bakari Matthews DO Referring MD: Bakari Matthews DO Medicines: Monitored Anesthesia Care Patient Profile: This is a 72 year old female. Refer to note in patient chart for documentation of history and physical. Patient has symptoms. Complications: No immediate complications. Procedure: Pre-Anesthesia Assessment: - Prior to the procedure, a History and Physical was performed, and patient medications and allergies were reviewed. The patient is competent. The risks and benefits of the procedure and the sedation options and risks were discussed with the patient. All questions were answered and informed consent was obtained. Patient identification and proposed procedure were verified by the physician in the pre-procedure area. Mental Status Examination: alert and oriented. Airway Examination: normal oropharyngeal airway and neck mobility. Respiratory Examination: clear to auscultation. CV Examination: normal. Prophylactic Antibiotics: The patient does not require prophylactic antibiotics. Prior Anticoagulants: The patient has taken no previous anticoagulant or antiplatelet agents. ASA Grade Assessment: II - A patient with mild systemic disease. After reviewing the risks and benefits, the patient was deemed in satisfactory condition to undergo the procedure. The anesthesia plan was to use monitored anesthesia care (MAC). Immediately prior to administration of medications, the patient was re-assessed for adequacy to receive sedatives. The heart rate, respiratory rate, oxygen saturations, blood pressure, adequacy of pulmonary ventilation, and response to care were monitored throughout the procedure. The physical status of the patient was re-assessed after the procedure. After obtaining informed consent, the endoscope was passed under direct vision. Throughout the procedure, the patient's blood pressure, pulse, and oxygen saturations were monitored continuously. The gastroscope was introduced through the mouth, and advanced to the second part of duodenum. The upper GI endoscopy was accomplished without difficulty. The patient tolerated the procedure well. Scope In: 9:22:32 AM Scope Out: 9:25:49 AM Total Procedure Duration Time 0 hours 3 minutes 17 seconds Findings: Non-severe esophagitis with no bleeding was found 35 to 36 cm from the incisors. Biopsies were taken with a cold forceps for histology. Verification of patient identification for the specimen was done. Estimated blood loss was minimal. A small amount of food (residue) was found in the gastric body. Patchy mildly erythematous mucosa without bleeding was found in the gastric body. Biopsies were taken with a cold forceps for histology. Verification of patient identification for the specimen was done. Estimated blood loss was minimal. A foreign body was found in the duodenal bulb. Impression: - Non-severe non-erosive esophagitis. Biopsied. - A small amount of food (residue) in the stomach. - Erythematous mucosa in the gastric body. Biopsied. - Duodenal foreign body. Recommendation: - Discharge patient to home. - Resume previous diet. - Continue present medications. - Await pathology results. - Repeat upper endoscopy for surveillance. Procedure Code(s): --- Professional --- 50680, Esophagogastroduodenoscopy, flexible, transoral; with biopsy, single or multiple CPT copyright 2017 [employer]. All rights reserved. The codes documented in this report are preliminary and upon seed potato cutter review may be revised to meet current compliance requirements. Bakrai Matthews DO 11/06/2022 9:31:03 AM This report has been signed electronically. Number of Addenda: 0 Note Initiated On: 11/06/2022 9:16 AM
--- NOTE | 2022-11-06 09:32 | OP.CCLET_ITS ---
11/06/2022 Galina Tavarez [address] [place] [address] Re : Upper GI endoscopy procedure for Dayami Hall Dear Dr. Tavarez This procedure was performed on Sunday, November 06, 2022. My impressions and recommendations are as follows: Impressions : - Non-severe non-erosive esophagitis. Biopsied. - A small amount of food (residue) in the stomach. - Erythematous mucosa in the gastric body. Biopsied. - Duodenal foreign body. Recommendations : - Discharge patient to home. - Resume previous diet. - Continue present medications. - Await pathology results. - Repeat upper endoscopy for surveillance. My findings are described in the full procedure note, which is enclosed. If I can be of further assistance, please feel free to contact me at . Sincerely, Bakari Matthews, 11/06/2022 9:31:03 AM This report has been signed electronically.
[2022-11-06 09:35] VITALS: BP 126/62; BP 141/70; PULSE 72; RESP 16; O2SAT 92
[2022-11-06 09:40] VITALS: BP 124/61; BP 141/70; PULSE 71; RESP 16; O2SAT 95
[2022-11-06 09:45] VITALS: BP 120/63; BP 141/70; RESP 16; O2SAT 97
[2022-11-06 10:04] VITALS: BP 141/70
== END 2022-11-06 10:14 | disposition home or self-care (01) ==
LOC: EN 08:13 → AC 08:16
PROVIDERS: PCP Family Medicine; Referring Provider Family Medicine; Visit Provider Internal Medicine Gastroenterology
PROC: 0DJ08ZZ Inspection of Upper Intestinal Tract, Via Natural or Artificial Opening Endoscopic (ICD-10-PCS; CPT 43235; principal; 2022-11-06 09:10)
DX: K29.70 Gastritis, unspecified, without bleeding (principal); E11.9 Type 2 diabetes mellitus without complications; K31.89 Other diseases of stomach and duodenum; K21.00 Gastro-esophageal reflux disease with esophagitis, without bleeding; E66.9 Obesity, unspecified; I25.2 Old myocardial infarction; G47.30 Sleep apnea, unspecified; K76.0 Fatty (change of) liver, not elsewhere classified; I10 Essential (primary) hypertension; E78.00 Pure hypercholesterolemia, unspecified; Z95.5 Presence of coronary angioplasty implant and graft; Z79.82 Long term (current) use of aspirin; Z79.84 Long term (current) use of oral hypoglycemic drugs; Z79.899 Other long term (current) drug therapy; Z79.01 Long term (current) use of anticoagulants; Z86.16 Personal history of COVID-19
CPT/HCPCS: 43239; 82962; 88305; 88313; 88342; J7120; J2405

== ENCOUNTER → 2022-12-27 | Outpatient (CLI) | payer MEDICARE, OTHER, SELFPAY ==
[2022-12-27 13:55] LABS: Free T3 2.2 pg/mL (2.18-3.98); T4 Free Direct 1.13 ng/dL (0.76-1.46)
== END | disposition home or self-care (01) ==
PROVIDERS: PCP Family Medicine; Referring Provider Family Medicine; Visit Provider Family Medicine
DX: E03.9 Hypothyroidism, unspecified (principal)
CPT/HCPCS: 36415; 84439; 84443; 84481

== ENCOUNTER → 2023-01-03 | Outpatient (CLI) | payer MEDICARE, OTHER, SELFPAY | END | disposition home or self-care (01) | LOC: BFHLAB 15:00 | PROVIDERS: PCP Family Medicine; Referring Provider Family Medicine; Visit Provider Family Medicine | DX: Z00.00 Encounter for general adult medical examination without abnormal findings (principal) ==

== ENCOUNTER → 2023-01-15 | Outpatient (CLI) | payer MEDICARE, OTHER, SELFPAY ==
[2023-01-15 12:28] LABS: Erythrocyte Sedimentation Rate 3 mm/hr (0-30)
[2023-01-15 13:20] LABS: AST(SGOT) 34 U/L (15-37); Alanine Aminotransfer ALT/SGPT 48 U/L (13-56); Albumin, Serum 3.9 g/dL (3.2-5.0); Alkaline Phosphatase 33 U/L (45-117); Anion Gap 7 (5-15); BUN 19 mg/dL (7-18); BUN/Creat Ratio 20.9 RATIO (10-20); Bilirubin, Direct 0.14 mg/dL (0.00-0.30); CRP < 2.90 mg/L (0.0-3.0); Calcium,Total 9.6 mg/dL (8.5-10.1); Chloride 108 mmol/L (98-107); Cholesterol 104 mg/dL (200); Creatinine, Serum 0.91 mg/dL (0.55-1.02); EST Glomerular Filtration Rate 64 mL/min (>60); Est Glom Filt Rate - Afr Amer 78 mL/min (>60); Globulin 3.4 g/dL (2.2-4.2); Glucose 139 mg/dL (74-106); High Density Lipoprotein 36 mg/dL; Potassium 4.2 mmol/L (3.5-5.1); Protein, Total 7.3 g/dL (6.4-8.2); Sodium Level 139 mmol/L (136-145); Triglycerides 144 mg/dL; Very Low Density Lipoprotein 29 mg/dL (5-40)
[2023-01-15 19:31] LABS: Microalbumin,Random Urine 16.2 mg/L (NO RANGE EST.); Microalbumin:Creatinine Ratio 25.3 mg/g CRE (<30 mg/g CRE)
== END | disposition home or self-care (01) ==
LOC: MTLAB 11:06
PROVIDERS: PCP Family Medicine; Referring Provider Nurse Practitioner Family; Visit Provider Nurse Practitioner Family
DX: E11.9 Type 2 diabetes mellitus without complications (principal); M25.50 Pain in unspecified joint
CPT/HCPCS: 36415; 80048; 80061; 80076; 82043; 82570; 85652; 86140

== ENCOUNTER → 2023-03-05 | Outpatient (CLI) | payer MEDICARE, OTHER, SELFPAY ==
--- NOTE | 2023-03-05 08:14 | US_ITS ---
STUDY: ABDOMINAL ULTRASOUND - RIGHT UPPER QUADRANT; ELASTOGRAPHY REASON FOR VISIT: Female, 72 years old. Fatty infiltration of the liver. TECHNIQUE: Ultrasound evaluation of the right upper quadrant was performed with real-time and static zacarias-scale imaging. Point quantification shear wave elastography was performed (ByRead). TECHNICAL QUALITY: Adequate. COMPARISON: Comparison is made with prior study dated 2022. FINDINGS: Liver: The liver measures 14.7 cm. There is increased echogenicity consistent with fatty infiltration. The bile ducts are within normal limits. There is hepatic color flow. The direction of portal flow is hepatopetal. There is no demonstrated mass lesion. Median liver stiffness measured 7.8 kPa. Gallbladder: Normal distended gallbladder. The gallbladder wall measures 1.4 mm. There is a negative sonographic Thibodeaux''s sign. There is no pericholecystic fluid. There are no gallstones. Common Bile Duct (C.B.D.): The common bile duct measures 3.7 mm. Pancreas: There is normal echogenicity of the visualized pancreas. There is no demonstrated pancreatic mass or cyst. Right Kidney: Normal size of the right kidney. The right kidney measures 11.8 cm x 5.6 x 4.4 cm. Normal renal cortex. The right cortex measures 1.3 cm. There is no demonstrated renal mass or cyst. There is no right hydronephrosis. US/ABD Limited w/ Elastography IMPRESSION: 1. Liver stiffness measures 7.8 kPa compatible with F2-F3 (Mild to moderate liver fibrosis) Metavir score. Electronically Signed: Zachary Taylor MD at 15:40 EDT ,
== END | disposition home or self-care (01) ==
LOC: US 08:14
PROVIDERS: PCP Family Medicine; Referring Provider Internal Medicine Gastroenterology; Visit Provider Internal Medicine Gastroenterology
DX: K76.0 Fatty (change of) liver, not elsewhere classified (principal)
CPT/HCPCS: 76705; 76981

== ENCOUNTER → 2023-05-24 | Outpatient (CLI) | payer MEDICARE, OTHER, SELFPAY ==
--- NOTE | 2023-05-24 14:27 | BI_ITS ---
MAMMOGRAPHY - BILATERAL SCREENING REASON FOR EXAM: Female, 72 years old. Routine annual screening examination. PERTINENT HISTORY: Non-contributory. TECHNIQUE: Digital bilateral breast elan (3D mammographic acquisition) in the CC and MLO projections. 2-D mediolateral oblique (MLO) and craniocaudad (CC) views of both breasts were obtained. CAD: Full Field Digital Mammography with Computer Added Detection was performed. COMPARISON: Comparison is made with prior study May 23, 2022 and May 17, 2021. FINDINGS: Breast Composition: The breasts are heterogeneously dense, which may obscure small masses. There are no dominant masses or suspicious calcifications. Fat-containing bilateral axillary lymph nodes. No other significant abnormalities are identified. There has been no significant change since the prior study. BI/SCRN MAMM (CAD)W/ELAN BILAT IMPRESSION: Stable bilateral screening mammogram. Yearly follow-up mammogram recommended. (A) ASSESSMENT CATEGORY: BIRADS Category 2: Benign. A letter regarding these results will be sent to the patient by the facility within 30 days. Approximately 10% of breast cancers are not detected by mammography. A normal mammogram should not delay biopsy of a clinically suspicious abnormality. [id number] Electronically Signed: Zachary Taylor MD at 8:26 EDT ,
--- NOTE | 2023-05-24 14:34 | BD_ITS ---
STUDY: DUAL ENERGY X-RAY ABSORPTIOMETRY / DXA REASON FOR EXAM: Female, 72 years old. [id number] TECHNIQUE: Bone Mineral Density (BMD) measurements of lumbar spine and left hip were obtained. COMPARISON: None. FINDINGS: Lumbar Spine (L1-L4): g/cm2 (1.029) / T-score (-0.2) / Z-score (2.1) Findings are suggestive of normal bone density with a low fracture risk. Left Femur Total: g/cm2 (0.899) / T-score (-0.3) / Z-score (1.3) Left Femoral Neck: g/cm2 (0.675) / T-score (-1.6) / Z-score (0.4) BD/Dexa Bone Density Study IMPRESSION: The patient is considered osteopenic as outlined below according to World Clint Organization (WHO) criteria with a moderate fracture risk. Reference Information: The T-score is the number of standard deviations above or below the standard which is normal for young adults at their peak bone mineral density. The World Health Organization (WHO) interprets the T-scores as follows: Above -1 Normal bone density Between -1 and -2.5 Osteopenia Equal to / or below -2.5 Osteoporosis As a practical clinical guideline, osteopenia may be graded as follows: Mild -1 through -1.5 Moderate -1.6 through -2.0 Severe -2.1 through -2.4 The Z-score is the number of standard deviations above or below age-matched controls. A Z-score of less than -1.5 would be considered abnormal. References: 1. NIH Osteoporosis and Related Bone Diseases www osteo.org 2. International Society for Clinical Densitometry www iscd.org 3. National Osteoporosis Foundation www nof.org Electronically Signed: Zachary Taylor MD at 15:29 EDT ,
== END | disposition home or self-care (01) ==
LOC: OPBI 14:26
PROVIDERS: PCP Family Medicine; Referring Provider Family Medicine; Visit Provider Family Medicine
DX: Z12.31 Encounter for screening mammogram for malignant neoplasm of breast (principal); Z78.0 Asymptomatic menopausal state
CPT/HCPCS: 77063; 77067; 77080

== ENCOUNTER → 2023-05-28 | Outpatient (CLI) | payer MEDICARE, OTHER, SELFPAY ==
[2023-05-28 10:47] LABS: Erythrocyte Sedimentation Rate 2 mm/hr (0-30)
[2023-05-28 10:51] LABS: Absolute Lymphocyte Count 1.13 X10^3/uL (0.83-4.51); Absolute Neutrophil Count 2.6 X10^3/uL (2.0-7.7); Basophil# 0.04 X10^3/uL; Basophil% 0.9 % (0-1); Eosinophil# 0.25 X10^3/uL; Eosinophils% 5.4 % (0-5); Hematocrit 39.1 % (37-47); Hemoglobin 12.5 g/dL (12.0-15.0); Lymphocyte # 1.13 X10^3/ul (0.83-4.51); Lymphocyte % 24.6 % (19-41); Mean Corpuscular Hgb 30.9 pg (27.0-32.0); Mean Corpuscular Volume 96.5 fL (81-99); Mean Platelet Vol. 10.2 fl (6.2-12.0); Monocyte# 0.51 X10^3/uL; Monocyte% 11.1 % (0-10); NRBC Flagged by Analyzer 0 % (0-5); Neutrophil # 2.64 X10^3/uL (2.7-7.7); Neutrophil % 57.6 % (47-70); Platelet Count 248 K/mm3 (150-450); RBC Distribution Width CV 14.1 % (11.6-14.6); RBC Distribution Width SD 49.7 fl (35.1-43.9); Red Blood Count 4.05 M/mm3 (4.2-5.4); White Blood Count 4.6 K/mm3 (4.4-11.0)
[2023-05-28 11:36] LABS: AST(SGOT) 24 U/L (15-37); Alanine Aminotransfer ALT/SGPT 27 U/L (13-56); Albumin, Serum 3.8 g/dL (3.2-5.0); Alkaline Phosphatase 36 U/L (45-117); Bilirubin, Direct 0.11 mg/dL (0.00-0.30); CRP < 2.90 mg/L (0.0-3.0); Creatinine, Serum 0.95 mg/dL (0.55-1.02); EST Glomerular Filtration Rate 61 mL/min (>60); Est Glom Filt Rate - Afr Amer 74 mL/min (>60); Globulin 3.1 g/dL (2.2-4.2); Protein, Total 6.9 g/dL (6.4-8.2); Rheumatoid Factor < 10.0 IU/mL (<15)
[2023-05-29 12:09] LABS: CCP IgG Antibodies 3 units (0-19)
== END | disposition home or self-care (01) ==
LOC: LAB 10:12
PROVIDERS: PCP Family Medicine; Referring Provider Internal Medicine Rheumatology; Visit Provider Internal Medicine Rheumatology
DX: M19.90 Unspecified osteoarthritis, unspecified site (principal); Z79.899 Other long term (current) drug therapy
CPT/HCPCS: 36415; 80076; 82565; 85025; 85652; 86140; 86200; 86431

== ENCOUNTER → 2023-07-31 | Outpatient (CLI) | payer MEDICARE, OTHER, SELFPAY ==
[2023-07-31 12:34] LABS: AST(SGOT) 24 U/L (15-37); Alanine Aminotransfer ALT/SGPT 32 U/L (13-56); Albumin, Serum 3.9 g/dL (3.2-5.0); Alkaline Phosphatase 38 U/L (45-117); Bilirubin, Direct 0.09 mg/dL (0.00-0.30); Cholesterol 108 mg/dL (200); Globulin 3.1 g/dL (2.2-4.2); High Density Lipoprotein 35 mg/dL; Triglycerides 205 mg/dL; Very Low Density Lipoprotein 41 mg/dL (5-40)
== END | disposition home or self-care (01) ==
LOC: MTLAB 10:14
PROVIDERS: PCP Family Medicine; Referring Provider Nurse Practitioner Family; Visit Provider Nurse Practitioner Family
DX: E78.00 Pure hypercholesterolemia, unspecified (principal)
CPT/HCPCS: 36415; 80061; 80076

== ENCOUNTER → 2023-09-28 | Outpatient (CLI) | payer MEDICARE, OTHER, SELFPAY ==
--- OUTSIDE RECORDS SUMMARY | 2023-09-28 11:49 | XMS RPT_ITS | CCD ---
Author Name Unknown Address [address] [place] [address] Organization [facility] Care Team Providers Care Complaint Investigator Name Role Phone Tameka LERMA, Lachelle Amezcua Unavailable Unavailable Pat DATA REPORTING ANALYST, Martha S Unavailable [phone] Holly Tan Unavailable FLORENTIN Cherry, Elissa Dee Unavailable Unavailabl e [place] Laird Y Unavailable Unavailable LUZ MARINA Fair, Ghazala Dee Unavailable [phone] JUDE LEACH Attending Unavailable GALINA TAVAREZ Primary Care Unavailable Holly Tan Unavailable Allergies Allergy Classification Reported Allergen(s) Allergy Type Date of Onset Reaction(s) Facility (7 sources) codeine drug allergy 10-06-2010 [facility] Work Phone: [phone] (7 sources) esomeprazole drug allergy 10-06-2010 causes elevated LFTs vicod [facility] Work Phone: [phone] (7 sources) iodine drug allergy 10-06-2010 [facility] Work Phone: [phone] (7 sources) levoFLOXacin drug allergy 10-06-2010 Nausea [facility] Work Phone: [phone] (7 sources) niacin drug allergy 10-06-2010 Causes elevated lfts vicod [facility] Work Phone: [phone] (7 sources) Sulfonamides (Antibiotic) drug allergy 10-06-2010 Causes elevated Lfts vicod [facility] Work Phone: [phone] Medications Completed/Discontinued Medications Medication Drug Class(es) Dates Sig (Normalized) Sig (Original) TEST STRIPS (2 sources) Start: 09-23-2015 TEST STRIPS use once daily as directed to check sugars DX E11.9 Galina Tavarez, acetaminophen 325 mg / butalbital 50 mg / caffeine 40 mg oral tablet (20 sources) Barbiturate, Central Nervous System Stimulant, Methylxanthine Start: 06-29-2015 End: 07-12-2015 take 1 tablet by mouth every eight hours as needed for headache [id number] AFFEINE 50-325-40 MG TABS 1 po every 8 hours as needed for headaches [id number] AFFEINE [id number] Galina Tavarez DO aspirin (20 sources) Nonsteroidal Anti-inflammatory Drug Start: 03-06-2017 take 1 tablet by mouth once daily ASPIR-81 81 MG TBEC One tablet by mouth daily ASPIRIN [id number] Martha Stewart DATA REPORTING ANALYST Problems Active Problems Problem Classification Problem Date Documented Date Episodic/Chronic Cardiac dysrhythmias (7 sources) Ventricular premature beats; Translations: [Ventricular premature depolarization] Onset: 06-07-2012 06-07-2012 Chronic Coronary atherosclerosis and other heart disease (20 sources) Coronary arteriosclerosis in [place] artery; Translations: [Coronary arteriosclerosis] Onset: 11-30-2011 06-03-2015 Chronic Diabetes mellitus with complications (7 sources) Type II diabetes mellitus uncontrolled; Translations: [Type 2 diabetes mellitus with hyperglycemia] Onset: 09-24-2015 09-24-2015 Chronic Diabetes mellitus without complication (7 sources) Type 2 diabetes mellitus; Translations: [Type 2 diabetes mellitus without complications] Onset: 03-02-2016 03-02-2016 Chronic Disorders of lipid metabolism (7 sources) Hyperlipidemia; Translations: [Hyperlipidemia, unspecified] Onset: 10-06-2010 10-06-2010 Chronic Esophageal disorders (7 sources) Gastroesophageal reflux disease; Translations: [Gastro-esophageal reflux disease without esophagitis] Onset: 09-03-2014 10-03-2014 Chronic Essential hypertension (7 sources) Hypertensive disorder; Translations: [Essential (primary) hypertension] Onset: 06-03-2015 06-03-2015 Chronic Headache, including migraine (7 sources) Migraine; Translations: [Migraine, unspecified, not intractable, without status migrainosus] Onset: 09-03-2014 10-03-2014 Chronic Menopausal disorders (4 sources) Atrophic vaginitis; Translations: [Postmenopausal atrophic vaginitis] Onset: 03-06-2017 03-06-2017 Chronic Osteoarthritis (7 sources) Osteoarthritis; Translations: [Unspecified osteoarthritis, unspecified site] Onset: 09-03-2014 10-03-2014 Chronic Other nutritional; endocrine; and metabolic disorders (17 sources) Body mass index (BMI) 31.0-31.9, adult; Translations: [Body mass index (BMI) 33.0-33.9, adult] Onset: 05-27-2014 05-27-2014 Chronic Other nutritional; endocrine; and metabolic disorders (3 sources) Body mass index (BMI) 33.0-33.9, adult; Translations: [Body mass index (BMI) 33.0-33.9, adult] Onset: 11-24-2014 11-24-2014 Chronic Other nutritional; endocrine; and metabolic disorders (1 source) Obesity; Translations: [Obesity, unspecified] Onset: 10-13-2015 10-13-2015 Chronic Thyroid disorders (7 sources) Hypothyroidism; Translations: [Hypothyroidism, unspecified] Onset: 09-03-2014 09-03-2014 Chronic Unclassified (6 sources) Screening mammography ; Translations: [Encounter for screening mammogram for malignant neoplasm of breast] Onset: 05-04-2015 05-04-2015 Unclassified (4 sources) Gynecologic examination ; Translations: [Encounter for gynecological examination (general) (routine) without abnormal findings] Onset: 03-06-2017 03-06-2017 Unclassified (6 sources) Adult health examination ; Translations: [Encounter for general adult medical examination without abnormal findings] Onset: 09-03-2014 10-03-2014 Unclassified (3 sources) Long-term drug therapy; Translations: [Other chcf (current) drug therapy] Onset: 10-06-2010 10-06-2010 Past or Other Problems Problem Classification Problem Date Documented Da te Episodic/Chronic Conditions associated with dizziness or vertigo (7 sources) Dizziness; Translations: [Dizziness and giddiness] Onset: 07-12-2015 07-12-2015 Episodic Coronary atherosclerosis and other heart disease (14 sources) Coronary angioplasty status; Translations: [Presence of coronary angioplasty implant and graft] Onset: 10-06-2010 10-06-2010 Episodic Headache, including migraine (14 sources) Headache; Translations: [Headache] Onset: 10-13-2014 07-12-2015 Episodic Malaise and fatigue (7 sources) Fatigue; Translations: [Other fatigue] Onset: 03-23-2015 03-23-2015 Episodic Mycoses (7 sources) Pityriasis versicolor; Translations: [Pityriasis versicolor] Onset: 03-23-2015 04-05-2015 Episodic Nonspecific chest pain (20 sources) Atypical chest pain; Translations: [Chest pain, unspecified] Onset: 10-06-2010 Resolved: 03-16-2016 03-02-2016 Episodic Other aftercare (4 sources) 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; Translations: [Other chcf (current) drug therapy] Onset: 10-06-2010 10-06-2010 Episodic Other circulatory disease (14 sources) Abnormal result of cardiovascular function study, unspecified; Translations: [Abnormal result of cardiovascular function study, unspecified] Onset: 10-06-2010 Resolved: 06-03-2015 10-06-2010 Episodic Other connective tissue disease (15 sources) Calcific tendinitis of shoulder; Translations: [Standard chest X-ray abnormal] Onset: 10-06-2010 Resolved: 06-03-2015 06-15-2015 Episodic Other lower respiratory disease (15 sources) Dyspnea; Translations: [Cough] Onset: 10-06-2010 10-06-2010 Episodic Other lower respiratory disease (1 source) Rib pain; Translations: [Pleurodynia] Onset: 09-23-2015 09-23-2015 Episodic Other lower respiratory disease (1 source) Cough; Translations: [Cough] Onset: 09-23-2015 09-23-2015 Episodic Other non-traumatic joint disorders (13 sources) Hip pain; Translations: [Pain in right shoulder] Onset: 12-28-2014 12-28-2014 Episodic Other non-traumatic joint disorders (1 source) Pain in right shoulder; Translations: [Pain in right shoulder] Onset: 06-10-2015 06-10-2015 Episodic Other nutritional; endocrine; and metabolic disorders (7 sources) Abnormal weight gain; Translations: [Abnormal weight gain] Onset: 12-28-2014 12-28-2014 Episodic Other screening for suspected conditions (not mental disorders or infectious disease) (6 sources) Standard chest X-ray abnormal; Translations: [Other nonspecific abnormal finding of lung field] Onset: 10-06-2010 Resolved: 06-03-2015 10-06-2010 Episodic Other skin disorders (7 sources) Epidermoid cyst of skin; Translations: [Sebaceous cyst] Onset: 10-13-2014 10-13-2014 Episodic Other upper respiratory infections (7 sources) Acute sinusitis; Translations: [Acute sinusitis, unspecified] Onset: 05-04-2015 06-13-2015 Episodic Syncope (7 sources) Syncope and collapse; Translations: [Syncope and collapse] Onset: 08-30-2011 08-30-2011 Episodic Unclassified (12 sources) Preoperative cardiovascular examination ; Translations: [Encounter for preprocedural cardiovascular examination] Onset: 05-27-2014 Resolved: 06-03-2015 06-03-2015 Results Test Name Value Interpretation Reference Range Facil ity Vital Signs Date Time Vital Sign Value Performing Clinician Facility 03-06-2017 09:15-0400 BMI (Body Mass Index) 33.29 kg/m2 Martha Stewart NP [facility] 03-06-2017 09:15-0400 BP Diastolic 81 mm[Hg] Martha Stewart NP [facility] 03-06-2017 09:15-0400 BP Systolic 132 mm[Hg] Martha Stewart NP [facility] 03-06-2017 09:15-0400 Height 154.94 cm Martha Stewart NP [facility] 03-06-2017 09:15-0400 Pulse (Heart Rate) 78 /min Martha Stewart NP [facility] 03-06-2017 09:15-0400 Respiratory Rate 16 /min Martha Stewart NP [facility] 03-06-2017 09:15-0400 Weight 79.92 kg Martha Stewart NP [facility] 12-07-2016 13:25-0400 BMI (Body Mass Index) 32.5 kg/m2 [facility] Work Phone: 12-07-2016 13:25-0400 BP Diastolic 70 mm[Hg] [facility] Work Phone: 12-07-2016 13:25-0400 BP Systolic 120 mm[Hg] [facility] Work Phone: 12-07-2016 13:25-0400 Height 154.94 cm [facility] Work Phone: 12-07-2016 13:25-0400 Pulse (Heart Rate) 76 /min [facility] Work Phone: 12-07-2016 13:25-0400 Respiratory Rate 20 /min [facility] Work Phone: 12-07-2016 13:25-0400 Weight 78.02 kg [facility] Work Phone: 06-06-2016 14:54-0500 BMI (Body Mass Index) 30.61 kg/m2 FLORENTIN [facility] Work Phone: 06-06-2016 14:54-0500 BP Diastolic 72 mm[Hg] FLORENTIN [facility] Work Phone: 06-06-2016 14:54-0500 BP Systolic 124 mm[Hg] FLORENTIN [facility] Work Phone: 06-06-2016 14:54-0500 BSA (Body Surface Area) 1.73 m2 FLORENTIN [facility] Work Phone: 06-06-2016 14:54-0500 Pulse (Heart Rate) 62 /min [facility]IN [facility] Work Phone: 06-06-2016 14:54-0500 Respiratory Rate 20 /min FLORENTIN [facility] Work Phone: 06-06-2016 14:54-0500 Weight 73.48 kg FLORENTIN [facility] Work Phone: 03-02-2016 10:32-0400 Body Temperature 98.4 [degF] FLORENTIN [facility] Work Phone: 03-02-2016 10:32-0400 Pulse Oximetry 98 % Elissa Cherry RN [facility] Work Phone: 05-27-2014 16:06-0400 Heart rate 65 /min Holly Tan [facility] Work Phone: 05-27-2014 16:06-0400 Heart rate 404 ms Holly Tan [facility] Work Phone: 08-29-2011 14:51-0500 Height 154.94 cm Elissa Cherry RN [facility] Work Phone: Encounters Encounter Date Encounter Type Care Provider Facility Start: 11-14-2018 End: 11-14-2018 Emergency department patient visit JUDE LEACH Gretchen ity:B Procedures Date Procedure Procedure Detail Performing Clinician Start: 02-23-2021 Antibody screen Plan of Treatment Date Care Activity Detail Author Start: 11-26-2017 End: 05-29-2017 *Hepatic Function Panel *Hepatic Function Panel [facility] Work Phone: Start: 11-26-2017 End: 05-29-2017 Lipid panel [AGGREGATE] *Lipid Profile CC PCP [facility] Work Phone: Start: 11-26-2017 End: 05-29-2017 *Hepatic Function Panel *Hepatic Function Panel [facility] Work Phone: Start: 11-26-2017 End: 05-29-2017 Lipid panel [AGGREGATE] *Lipid Profile CC PCP [facility] Work Phone: Start: 09-10-2017 End: 09-10-2017 Appointment Appointment [facility] Work Phone: Start: 09-10-2017 End: 09-10-2017 Appointment Appointment [facility] Work Phone: Start: 05-09-2017 End: 05-23-2017 *Hepatic Function Panel *Hepatic Function Panel [facility] Work Phone: Start: 05-09-2017 End: 05-23-2017 Lipid panel [AGGREGATE] *Lipid Profile CC PCP [facility] Work Phone: Start: 05-09-2017 End: 05-23-2017 *Hepatic Function Panel *Hepatic Function Panel [facility] Work Phone: Start: 05-09-2017 End: 05-23-2017 Lipid panel [AGGREGATE] *Lipid Profile CC PCP [facility] Work Phone: Start: 03-06-2017 End: 03-06-2017 CA screen;pelvic/breast exam Pelvic/Breast Exam (Medicare Patient) [facility] Work Phone: Start: 03-06-2017 End: 03-06-2017 Mammogram, screening Mammogram, Screening, both breasts [facility] Work Phone: Start: 03-06-2017 End: 03-06-2017 Appointment Appointment [facility] Start: 03-06-2017 End: 03-06-2017 Mammogram, screening Mammogram, Screening, both breasts [facility] Start: 03-06-2017 End: 03-06-2017 Pelvic/Breast Exam (Medicare Patient) Pelvic/Breast Exam (Medicare Patient) [facility] Start: 12-07-2016 End: 12-07-2016 Follow Up Appt 9 months Follow Up Appt 9 months [facility] Work Phone: Start: 12-07-2016 End: 12-07-2016 MMM MMM [facility] Work Phone: Start: 12-07-2016 End: 12-07-2016 Appointment Appointment [facility] Work Phone: Start: 12-07-2016 End: 08-29-2017 Follow Up Appt 9 months Follow Up Appt 9 months [facility] Work Phone: Start: 12-07-2016 End: 08-29-2017 MMM MMM [facility] Work Phone: Start: 10-26-2016 End: 11-07-2016 *Hepatic Function Panel *Hepatic Function Panel [facility] Work Phone: Start: 10-26-2016 End: 11-07-2016 Lipid panel [AGGREGATE] *Lipid Profile CC PCP [facility] Work Phone: Start: 10-26-2016 End: 11-07-2016 *Hepatic Function Panel *Hepatic Function Panel [facility] Work Phone: Start: 10-26-2016 End: 11-07-2016 Lipid panel [AGGREGATE] *Lipid Profile CC PCP [facility] Work Phone: Start: 08-21-2016 End: 03-02-2016 *CBC with Differential *CBC with Differential [facility] Work Phone: Start: 08-21-2016 End: 03-02-2016 *CMP Complete Metabolic Panel *CMP Complete Metabolic Panel [facility] Work Phone: Start: 08-21-2016 End: 03-02-2016 *Microalbumin, Creatine Ratio, rand urine *Microalbumin, Creatine Ratio, rand urine [facility] Work Phone: Start: 08-21-2016 End: 03-02-2016 Hemoglobin A1c/Hemoglobin.total mass fraction (Bld) *HgA1C [facility] Work Phone: Start: 08-21-2016 End: 03-02-2016 Thyroid stimulating hormone (TSH) *TSH [facility] Work Phone: Start: 08-21-2016 End: 08-29-2017 *CBC with Differential *CBC with Differential [facility] Work Phone: Start: 08-21-2016 End: 08-29-2017 *CMP Complete Metabolic Panel *CMP Complete Metabolic Panel [facility] Work Phone: Start: 08-21-2016 End: 08-29-2017 *Microalbumin, Creatine Ratio, rand urine *Microalbumin, Creatine Ratio, rand urine [facility] Work Phone: Start: 08-21-2016 End: 08-29-2017 HbA1c *HgA1C [facility] Work Phone: Start: 08-21-2016 End: 08-29-2017 Thyroid stimulating hormone (TSH) *TSH [facility] Work Phone: Start: 06-06-2016 End: 06-06-2016 Follow Up Appt 6 months Follow Up Appt 6 months [facility] Work Phone: Start: 06-06-2016 End: 06-06-2016 MM MM [facility] Work Phone: Start: 06-06-2016 End: 06-06-2016 Follow Up Appt 6 months Follow Up Appt 6 months [facility] Work Phone: Start: 06-06-2016 End: 06-06-2016 MM MM [facility] Work Phone: Start: 03-21-2016 End: 04-28-2016 *Hepatic Function Panel *Hepatic Function Panel [facility] Work Phone: Start: 03-21-2016 End: 04-28-2016 Lipid panel [AGGREGATE] *Lipid Profile CC PCP [facility] Work Phone: Start: 03-21-2016 End: 04-28-2016 *Hepatic Function Panel *Hepatic Function Panel [facility] Work Phone: Start: 03-21-2016 End: 04-28-2016 Lipid panel [AGGREGATE] *Lipid Profile CC PCP [facility] Work Phone: Start: 10-13-2015 End: 10-14-[address] [facility] Services, [address] [place], [address] [facility] Work Phone: Start: 10-13-2015 End: 10-14-[address] 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, [address] [place], [address] [facility] Work Phone: Start: 09-24-2015 End: 09-28-2015 Maintenance Repairman Maintenance Repairman [facility], [address] [place], [address] [facility] Work Phone: Start: 09-23-2015 End: 09-23-2015 Chest x-ray X-Ray, Chest, PA & Lateral [facility] Work Phone: Start: 09-23-2015 End: 08-29-2017 Chest x-ray X-Ray, Chest, PA & Lateral [facility] Work Phone: Start: 09-09-2015 End: 09-21-2015 *Hepatic Function Panel *Hepatic Function Panel [facility] Work Phone: Start: 09-09-2015 End: 09-21-2015 Lipid panel [AGGREGATE] *Lipid Profile CC PCP [facility] Work Phone: Start: 09-09-2015 End: 09-21-2015 *Hepatic Function Panel *Hepatic Function Panel [facility] Work Phone: Start: 09-09-2015 End: 09-21-2015 Lipid panel [AGGREGATE] *Lipid Profile CC PCP [facility] Work Phone: Start: 08-05-2015 End: 09-21-2015 Thyroid stimulating hormone (TSH) *TSH [facility] Work Phone: Start: 08-05-2015 End: 09-21-2015 Thyroid stimulating hormone (TSH) *TSH [facility] Work Phone: Start: 07-15-2015 End: 07-15-2015 C reactive protein (hsCRP) *CRP - C-Reative Protein [facility] Work Phone: Start: 07-15-2015 End: 07-15-2015 Erythrocyte sedimentation rate *Sedimentation Rate (ESR) [facility] Work Phone: Start: 07-15-2015 End: 07-15-2015 C reactive protein (hsCRP) *CRP - C-Reative Protein [facility] Work Phone: Start: 07-15-2015 End: 07-15-2015 Erythrocyte sedimentation rate *Sedimentation Rate (ESR) [facility] Work Phone: Start: 07-12-2015 End: 07-12-2015 Ct head/brain w/o contrast material CT Head/Brain without contrast [facility] Work Phone: Start: 07-12-2015 End: 08-29-2017 Ct head/brain w/o dye CT Head/Brain without contrast [facility] Work Phone: Start: 06-15-2015 End: 06-15-2015 Arthrocentesis aspir&/inj major jt/bursa w/o us Injection, Joint (major) [facility] Work Phone: Start: 06-15-2015 End: 06-15-2015 Triamcinolone acet inj NOS Kenalog per 10 mg [facility] Work Phone: Start: 06-15-2015 End: 08-29-2017 Drain/inject, joint/bursa Injection, Joint (major) [facility] Work Phone: Start: 06-15-2015 End: 08-29-2017 Kenalog per 10 mg Kenalog per 10 mg [facility] Work Phone: Start: 06-10-2015 End: 06-10-2015 Radex shoulder complete minimum 2 views X-Ray, Shoulder [facility] Work Phone: Start: 06-10-2015 End: 08-29-2017 X-ray exam of shoulder X-Ray, Shoulder [facility] Work Phone: Start: 06-03-2015 End: 06-03-2015 Follow Up Appt 1 year Follow Up Appt 1 year [facility] Work Phone: Start: 06-03-2015 End: 06-03-2015 MMM MMM [facility] Work Phone: Start: 06-03-2015 End: 06-03-2015 Follow Up Appt 1 year Follow Up Appt 1 year [facility] Work Phone: Start: 06-03-2015 End: 06-03-2015 MMM MMM [facility] Work Phone: Start: 05-04-2015 End: 05-04-2015 Mammogram, screening Mammogram, Screening, both breasts [facility] Work Phone: Start: 05-04-2015 End: 08-29-2017 Mammogram, screening Mammogram, Screening, both breasts [facility] Work Phone: Start: 03-23-2015 End: 03-24-2015 *BMP *BMP [facility] Work Phone: Start: 03-23-2015 End: 03-24-2015 Cobalamins (Vitamin B12) *B-12 [facility] Work Phone: Start: 03-23-2015 End: 03-24-2015 Ferritin *Ferritin [facility] Work Phone: Start: 03-23-2015 End: 03-24-2015 Iron *Iron [facility] Work Phone: Start: 03-23-2015 End: 03-24-2015 Thyroid stimulating hormone (TSH) *TSH [facility] Work Phone: Start: 03-23-2015 End: 03-25-2015 Thyroxine (T4) free *T4 free [facility] Work Phone: Start: 03-23-2015 End: 03-24-2015 *BMP *BMP [facility] Work Phone: Start: 03-23-2015 End: 03-24-2015 Cobalamins (Vitamin B12) *B-12 [facility] Work Phone: Start: 03-23-2015 End: 03-24-2015 Ferritin *Ferritin [facility] Work Phone: Start: 03-23-2015 End: 03-24-2015 Iron *Iron [facility] Work Phone: Start: 03-23-2015 End: 03-24-2015 Thyroid stimulating hormone (TSH) *TSH [facility] Work Phone: Start: 03-23-2015 End: 03-25-2015 Thyroxine (T4) free *T4 free [facility] Work Phone: Start: 02-25-2015 End: 03-09-2015 *Hepatic Function Panel *Hepatic Function Panel [facility] Work Phone: Start: 02-25-2015 End: 03-09-2015 Lipid panel [AGGREGATE] *Lipid Profile CC PCP [facility] Work Phone: Start: 02-25-2015 End: 03-09-2015 *Hepatic Function Panel *Hepatic Function Panel [facility] Work Phone: Start: 02-25-2015 End: 03-09-2015 Lipid panel [AGGREGATE] *Lipid Profile CC PCP [facility] Work Phone: Start: 12-28-2014 End: 12-28-2014 Ct lower extremity w/o contrast material CT Lower Extremity [facility] Work Phone: Start: 12-28-2014 End: 08-29-2017 Ct lower extremity w/o dye CT Lower Extremity [facility] Work Phone: Start: 11-24-2014 End: 04-28-2016 EXECUTIVE LEGAL 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 LEGAL SECRETARY [facility] Work Phone: Start: 11-24-2014 End: 04-28-2016 Follow Up Appt 6 months Follow Up Appt 6 months [facility] Work Phone: Start: 11-24-2014 End: 04-28-2016 EXECUTIVE LEGAL SECRETARY EXECUTIVE LEGAL SECRETARY [facility] Work Phone: Start: 11-24-2014 End: 04-28-2016 Follow Up Appt 6 months Follow Up Appt 6 months [facility] Work Phone: Start: 09-03-2014 End: 09-03-2014 Thyroid stimulating hormone (TSH) *TSH [facility] Work Phone: Start: 09-03-2014 End: 08-29-2017 Thyroid stimulating hormone (TSH) *TSH [facility] Work Phone: Start: 07-30-2014 End: 08-31-2014 *Hepatic Function Panel *Hepatic Function Panel [facility] Work Phone: Start: 07-30-2014 End: 08-31-2014 Lipid panel [AGGREGATE] *Lipid Profile CC PCP [facility] Work Phone: Start: 07-30-2014 End: 08-31-2014 *Hepatic Function Panel *Hepatic Function Panel [facility] Work Phone: Start: 07-30-2014 End: 08-31-2014 Lipid panel [AGGREGATE] *Lipid Profile CC PCP [facility] Work Phone: Start: 05-27-2014 End: 05-27-2014 Ecg routine ecg w/least 12 lds w/i&r EKG (In office) [facility] Work Phone: Start: 05-27-2014 End: 05-27-2014 Follow Up Appt 6 months Follow Up Appt 6 months [facility] Work Phone: Start: 05-27-2014 End: 05-27-2014 MMM MMM [facility] Work Phone: Start: 05-27-2014 End: 05-27-2014 Electrocardiogram, complete EKG (In office) [facility] Work Phone: Start: 05-27-2014 End: 05-27-2014 Follow Up Appt 6 months Follow Up Appt 6 months [facility] Work Phone: Start: 05-27-2014 End: 05-27-2014 MMM MMM [facility] Work Phone: Start: 01-27-2014 End: 02-23-2014 *Hepatic Function Panel *Hepatic Function Panel [facility] Work Phone: Start: 01-27-2014 End: 02-23-2014 Lipid panel [AGGREGATE] *Lipid Profile CC PCP [facility] Work Phone: Start: 01-27-2014 End: 02-23-2014 *Hepatic Function Panel *Hepatic Function Panel [facility] Work Phone: Start: 01-27-2014 End: 02-23-2014 Lipid panel [AGGREGATE] *Lipid Profile CC PCP [facility] Work Phone: Start: 09-02-2013 End: 09-02-2013 EXECUTIVE LEGAL SECRETARY EXECUTIVE LEGAL SECRETARY [facility] Work Phone: Start: 09-02-2013 End: 09-02-2013 Follow Up Appt 6 months Follow Up Appt 6 months [facility] Work Phone: Start: 09-02-2013 End: 09-02-2013 EXECUTIVE LEGAL SECRETARY EXECUTIVE LEGAL SECRETARY [facility] Work Phone: Start: 09-02-2013 End: 09-02-2013 Follow Up Appt 6 months Follow Up Appt 6 months [facility] Work Phone: Start: 03-19-2013 End: 08-26-2013 *Hepatic Function Panel *Hepatic Function Panel [facility] Work Phone: Start: 03-19-2013 End: 08-26-2013 Lipid panel [AGGREGATE] *Lipid Profile [facility] Work Phone: Start: 03-19-2013 End: 08-26-2013 *Hepatic Function Panel *Hepatic Function Panel [facility] Work Phone: Start: 03-19-2013 End: 08-26-2013 Lipid panel [AGGREGATE] *Lipid Profile [facility] Work Phone: Start: 03-06-2013 End: 03-06-2013 Ecg routine ecg w/least 12 lds w/i&r EKG (In office) [facility] Work Phone: Start: 03-06-2013 End: 03-06-2013 Follow Up Appt 6 months Follow Up Appt 6 months [facility] Work Phone: Start: 03-06-2013 End: 03-06-2013 MMM MMM [facility] Work Phone: Start: 03-06-2013 End: 03-06-2013 Electrocardiogram, complete EKG (In office) [facility] Work Phone: Start: 03-06-2013 End: 03-06-2013 Follow Up Appt 6 months Follow Up Appt 6 months [facility] Work Phone: Start: 03-06-2013 End: 03-06-2013 MMM MMM [facility] Work Phone: Start: 09-03-2012 End: 09-03-2012 Follow Up Appt 6 months Follow Up Appt 6 months [facility] Work Phone: Start: 09-03-2012 End: 09-03-2012 Follow Up Appt 6 months Follow Up Appt 6 months [facility] Work Phone: Start: 07-31-2012 End: 08-20-2012 *Hepatic Function Panel *Hepatic Function Panel [facility] Work Phone: Start: 07-31-2012 End: 08-20-2012 Lipid panel [AGGREGATE] *Lipid Profile [facility] Work Phone: Start: 07-31-2012 End: 08-20-2012 *Hepatic Function Panel *Hepatic Function Panel [facility] Work Phone: Start: 07-31-2012 End: 08-20-2012 Lipid panel [AGGREGATE] *Lipid Profile [facility] Work Phone: Start: 06-26-2012 End: 06-10-2012 24 hour holter monitor 24 hour holter monitor [facility] Work Phone: Start: 06-26-2012 End: 06-10-2012 24 hour holter monitor 24 hour holter monitor [facility] Work Phone: Start: 06-03-2012 End: 07-08-2012 *CBC with Differential *CBC with Differential [facility] Work Phone: Start: 06-03-2012 End: 07-08-2012 *CBC with Differential *CBC with Differential [facility] Work Phone: Start: 05-30-2012 End: 05-30-2012 *BMP *BMP [facility] Work Phone: Start: 05-30-2012 End: 05-30-2012 24 hour holter monitor 24 hour holter monitor [facility] Work Phone: Start: 05-30-2012 End: 07-08-2012 aPTT *PTT-Partial Thromboplastin Time [facility] Work Phone: Start: 05-30-2012 End: 07-08-2012 Chest x-ray X-Ray, Chest, PA & Lateral [facility] Work Phone: Start: 05-30-2012 End: 05-30-2012 Ecg routine ecg w/least 12 lds w/i&r EKG (In office) [facility] Work Phone: Start: 05-30-2012 End: 05-30-2012 Echocardiography Echocardiogram (complete) [facility] Work Phone: Start: 05-30-2012 End: 05-30-2012 Follow Up Appt 3 months Follow Up Appt 3 months [facility] Work Phone: Start: 05-30-2012 End: 07-08-2012 INR Coag RelTime (PPP) *PT/INR [facility] Work Phone: Start: 05-30-2012 End: 05-30-2012 Left Heart Cath Left Heart Cath [facility] Work Phone: Start: 05-30-2012 End: 07-08-2012 Magnesium *Magnesium [facility] Work Phone: Start: 05-30-2012 End: 07-08-2012 Thyroid stimulating hormone (TSH) *TSH [facility] Work Phone: Start: 05-30-2012 End: 05-30-2012 *BMP *BMP [facility] Work Phone: Start: 05-30-2012 End: 05-30-2012 24 hour holter monitor 24 hour holter monitor [facility] Work Phone: Start: 05-30-2012 End: 07-08-2012 aPTT *PTT-Partial Thromboplastin Time [facility] Work Phone: Start: 05-30-2012 End: 07-08-2012 aPTT Coag time (PPP) *PTT-Partial Thromboplastin Time [employer] Work Phone: Start: 05-30-2012 End: 07-08-2012 Chest x-ray X-Ray, Chest, PA & Lateral [employer] Work Phone: Start: 05-30-2012 End: 07-08-2012 Coagulation factor induced.INR assay in platelet poor plasma *PT/INR [employer] Work Phone: Start: 05-30-2012 End: 05-30-2012 Echocardiography Echocardiogram (complete) [employer] Work Phone: Start: 05-30-2012 End: 05-30-2012 Electrocardiogram, complete EKG (In office) [employer] Work Phone: Start: 05-30-2012 End: 05-30-2012 Follow Up Appt 3 months Follow Up Appt 3 months [employer] Work Phone: Start: 05-30-2012 End: 05-30-2012 Left Heart Cath Left Heart Cath [employer] Work Phone: Start: 05-30-2012 End: 07-08-2012 Magnesium *Magnesium [employer] Work Phone: Start: 05-30-2012 End: 07-08-2012 Thyroid stimulating hormone (TSH) *TSH [employer] Work Phone: Start: 01-31-2012 End: 02-26-2012 *Hepatic Function Panel *Hepatic Function Panel [employer] Work Phone: Start: 01-31-2012 End: 02-26-2012 Lipid panel [AGGREGATE] *Lipid Profile [facility] Work Phone: Start: 01-31-2012 End: 02-26-2012 *Hepatic Function Panel *Hepatic Function Panel [facility] Work Phone: Start: 01-31-2012 End: 02-26-2012 Lipid panel [AGGREGATE] *Lipid Profile [facility] Work Phone: Start: 11-30-2011 End: 11-30-2011 Follow Up Appt 6 months Follow Up Appt 6 months [facility] Work Phone: Start: 11-30-2011 End: 11-30-2011 Follow Up Appt 6 months Follow Up Appt 6 months [facility] Work Phone: Start: 08-29-2011 End: 08-29-2011 *BMP *BMP [facility] Work Phone: Start: 08-29-2011 End: 08-29-2011 *CBC with Differential *CBC with Differential [facility] Work Phone: Start: 08-29-2011 End: 08-29-2011 24 hour holter monitor 24 hour holter monitor [facility] Work Phone: Start: 08-29-2011 End: 08-29-2011 Carotid duplex Carotid duplex [facility] Work Phone: Start: 08-29-2011 End: 08-29-2011 Echocardiography Echocardiogram (complete) [facility] Work Phone: Start: 08-29-2011 End: 08-29-2011 Follow Up Appt 3 months Follow Up Appt 3 months [facility] Work Phone: Start: 08-29-2011 End: 08-29-2011 Nuclear stress test -exercise Nuclear stress test -exercise [facility] Work Phone: Start: 08-29-2011 End: 08-29-2011 Thyroid stimulating hormone (TSH) *TSH [facility] Work Phone: Start: 08-29-2011 End: 02-26-2012 Thyroxine (T4) *T4 (Total) [facility] Work Phone: Start: 08-29-2011 End: 08-29-2011 *BMP *BMP [facility] Work Phone: Start: 08-29-2011 End: 08-29-2011 *CBC with Differential *CBC with Differential [facility] Work Phone: Start: 08-29-2011 End: 08-29-2011 24 hour holter monitor 24 hour holter monitor [facility] Work Phone: Start: 08-29-2011 End: 08-29-2011 Carotid duplex Carotid duplex [facility] Work Phone: Start: 08-29-2011 End: 08-29-2011 Echocardiography Echocardiogram (complete) [facility] Work Phone: Start: 08-29-2011 End: 08-29-2011 Follow Up Appt 3 months Follow Up Appt 3 months [facility] Work Phone: Start: 08-29-2011 End: 08-29-2011 Nuclear stress test -exercise Nuclear stress test -exercise [facility] Work Phone: Start: 08-29-2011 End: 08-29-2011 Thyroid stimulating hormone (TSH) *TSH [facility] Work Phone: Start: 08-29-2011 End: 02-26-2012 Thyroxine (T4) *T4 (Total) [facility] Work Phone: Patient Education [facility] Work Phone: Payers Date Payer Category Payer Medicare [id number] 2018 Unknown [id number] 1950 Unknown [id number] Medical Equipment Procedure Code Equipment Code Equipment Origin al Text Equipment Identifier Dates LANCETS [id number] Start: 09-23-2015 End: 10-26-2015 TEST STRIPS [id number] Start: 09-23-2015 Progress note 09-22-2021 Note Date & Type Note Facility 09-22-2021 Note HNO ID: [id number] Author: Jeffrey Bryan MD Service: ? Author Type: Physician Type: Progress Notes Filed: 09/22/2021 8:10 AM Note Text: Patient: Korin Harper : 1950 Date of Surgery: 03/09/21 Procedure(s): Right hip gluteus medius repair, open (30840), with primary repair fixation (32537) Latrell's gluteus stephen/ tensor fascia pierre transfer: Right hip/ thigh transplant/ transfer multiple thigh tendons (70156) Hip greater trochanteric bursectomy (84781) Application of rehabilitation brace under anesthesia [28504] HPI: Korin Harper is a 70 year old female who presents s/p Right open abductor repair. The pain has improved since surgery. The patient denies wound healing difficulty, fevers, or chills. Walking into clinic without assistive device. DVT prophylaxis/ Analgesic Medication: See medication list Review of Systems, Past Medical History, Past Surgical History, Family History, and Social History: Reviewed and charted into [facility]. Allergies: Cat Scan Dye [Other], Levaquin [Levofloxacin], Niacin, Sulfa (Sulfonamide Antibiotics), and Vicodin [Hydrocodone-Acetaminophen] Medications: Current Outpatient Medications: - glipiZIDE-metFORMIN (METAGLIP) 2.5-250 mg tablet - aspirin, enteric coated (ASPIRIN LOW DOSE) 81 mg EC tablet - famotidine (PEPCID) 20 mg tablet - naloxone 4 mg/actuation nasal spray (NARCAN) - ascorbic acid, vitamin C, (VITAMIN C) 500 mg tablet - metFORMIN (GLUCOPHAGE) 1,000 mg tablet - amLODIPine (NORVASC) 5 mg tablet - gabapentin (NEURONTIN) 300 mg capsule - nabumetone (RELAFEN) 750 mg tablet - omeprazole (PRILOSEC) 40 mg capsule - METHENAMINE HIPPURATE ORAL - CALCIUM-MAGNESIUM ORAL - colestipol (COLESTID) 1 gram tablet - clopidogrel (PLAVIX) 75 mg tablet - isosorbide mononitrate ER (IMDUR) 30 mg 24 hr tablet - allopurinol (ZYLOPRIM) 100 mg tablet - estradiol (ESTRACE) 0.01 % (0.1 mg/gram) vaginal cream - rosuvastatin calcium(CRESTOR 20 MG TAB) - metoprolol tartrate(LOPRESSOR 50 MG TAB) - levothyroxine sodium(SYNTHROID 100 MCG TAB) Physical Exam: PE reveals a female with the following vitals signs: There were no vitals taken for this visit. The patient is oriented to person, place and time, and is well-appearing. The patient has a stable gait. Hip exam: The patient is able to smoothly range the hip. ROM - Hip Flexion: 100 degrees Hip Extension: 10 Incision: well-healed Radiology Findings: (I have reviewed radiology images and reports). 09/19/21 XR right hip - stable appearance 04/21/21 XR right hip - stable appearance Assessment: (S76.011D) Tear of right gluteus medius tendon, subsequent encounter (primary encounter diagnosis) Plan: Based upon the evaluation today and after discussions with the patient, we will proceed with the following: -Pain control: oral regimen -PT: per protocol; also will do Aquatherapy/ swimming and bike, Core program -Cane prn -RTC 1 year with XR Right hip All questions were answered in detail, and the patient was pleased with the plan of care. [facility] Progress note 09-19-2021 Note Date & Type Note Facility 09-19-2021 Note HNO ID: [id number] Author: RT Jocelyn(R) Service: Nuclear Medicine Author Type: Technologist Type: Progress Notes Filed: 09/19/2021 3:04 PM Note Text: Radiology Service Progress Note PATIENT NAME: Korin Harper DATE OF SERVICE: September 19, 2021 TIME: 2:53 PM PATIENT IDENTITY VERIFICATION COMPLETED USING TWO (2) IDENTIFIERS: Name and Date of confirmed by patient verbally. FALL SCREENING: Has the patient had 2 falls in the last year or 1 fall with injury or currently using an Ambulatory Assistive Device (Walker, Cane, Wheelchair, Crutches, etc.)? No PATIENT GENDER DATA: Female. status: : No status: NO. PATIENT RELEVANT IMPLANT DATA REVIEWED: Not Applicable RADIOLOGY DEPARTMENT: General X-ray: Exam(s) Completed: Pelvis X-Ray: Pelvis with Hip Right PERIPHERAL IV DATA: Not applicable SIGNED BY: RT Jocelyn(R) September 19, 2021 2:53 PM [facility] Progress note 04-21-2021 Note Date & Type Note Facility 04-21-2021 Note HNO ID: [id number] Author: Jeffrey Bryan MD Service: ? Author Type: Physician Type: Progress Notes Filed: 04/21/2021 10:12 AM Note Text: Post-Op Visit Patient: Korin Harper : 1950 Date of Surgery: 03/09/2021 Procedure(s): Right hip gluteus medius repair, open (63968), with primary repair fixation (33023) Latrell's gluteus stephen/ tensor fascia pierre transfer: Right hip/ thigh transplant/ transfer multiple thigh tendons (65621) Hip greater trochanteric bursectomy (16567) Application of rehabilitation brace under anesthesia [95165] HPI: Korin Harper is a 70 year old female who presents s/p Right open abductor repair. The pain has improved since surgery. The patient denies wound healing difficulty, fevers, or chills. DVT prophylaxis/ Analgesic Medication: See medication list Review of Systems, Past Medical History, Past Surgical History, Family History, and Social History: Reviewed and charted into [facility]. Allergies: Cat Scan Dye [Other], Levaquin [Levofloxacin], Niacin, Sulfa (Sulfonamide Antibiotics), and Vicodin [Hydrocodone-Acetaminophen] Medications: Current Outpatient Medications: - glipiZIDE-metFORMIN (METAGLIP) 2.5-250 mg tablet - aspirin, enteric coated (ASPIRIN LOW DOSE) 81 mg EC tablet - famotidine (PEPCID) 20 mg tablet - naloxone 4 mg/actuation nasal spray (NARCAN) - ascorbic acid, vitamin C, (VITAMIN C) 500 mg tablet - metFORMIN (GLUCOPHAGE) 1,000 mg tablet - amLODIPine (NORVASC) 5 mg tablet - gabapentin (NEURONTIN) 300 mg capsule - nabumetone (RELAFEN) 750 mg tablet - omeprazole (PRILOSEC) 40 mg capsule - METHENAMINE HIPPURATE ORAL - CALCIUM-MAGNESIUM ORAL - colestipol (COLESTID) 1 gram tablet - clopidogrel (PLAVIX) 75 mg tablet - isosorbide mononitrate ER (IMDUR) 30 mg 24 hr tablet - allopurinol (ZYLOPRIM) 100 mg tablet - estradiol (ESTRACE) 0.01 % (0.1 mg/gram) vaginal cream - rosuvastatin calcium(CRESTOR 20 MG TAB) - metoprolol tartrate(LOPRESSOR 50 MG TAB) - levothyroxine sodium(SYNTHROID 100 MCG TAB) Physical Exam: PE reveals a female with the following vitals signs: Ht 154.9 cm (5' 1 ) Wt 83.9 kg (185 lb) BMI 34.96 kg/m? The patient is oriented to person, place and time, and is well-appearing. The patient has a stable gait. Hip exam: The patient is able to smoothly range the hip. ROM - Hip Flexion: 100 degrees Hip Extension: 10 Incision: well-healing Radiology Findings: (I have reviewed radiology images and reports). 04/21/21 XR right hip - stable appearance Assessment: No diagnosis found. Plan: Based upon the evaluation today and after discussions with the patient, we will proceed with the following: -Pain control: oral regimen -PT: per protocol -RTC 1 year with XR Right hip All questions were answered in detail, and the patient was pleased with the plan of care. [facility] Progress note 03-24-2021 Note Date & Type Note Facility 03-24-2021 Note HNO ID: [id number] Author: EVA Morrison Service: ? Author Type: Registered Nurse Warehouse Man Type: Progress Notes Filed: 03/25/2021 8:26 AM Note Text: Right gluteus repair 2 week post op Doing well Ambulates with w/c Pain 0/10 Incision looks very good Physical Therapy going well Cast tech in to adjust brace for comfort Follow up at 6 week post op with Dr Bryan with XR first [facility] Progress note 03-10-2021 Note Date & Type Note Facility 03-10-2021 Note HNO ID: [id number] Author: Bib Rea MD Service: Orthopaedic Surgery Author Type: Physician Type: Progress Notes Filed: 03/10/2021 6:16 AM Note Text: ORTHOPAEDIC SURGERY PROGRESS NOTE PATIENT NAME: Korin Harper Surgery Date: 03/09/2021 Surgeon: Dr. Jeffrey Bryan MD Procedure(s): Procedure(s) (LRB): SUTURE REPAIR GLUTEUS MEDIUS (Right) Subjective: POD 1 s/p R glut medius suture repair (03/09) No acute events overnight. Vitals stable. Pain controlled. Voiding and passing flatus. Has not worked with PT yet. Denies CP/SOB. Vitals: 03/09/21 1640 03/09/21 1948 03/09/21 2156 03/10/21 0406 BP: 136/76 158/83 136/74 150/85 Pulse: 94 106 106 98 Resp: 16 18 18 16 Temp: 36.6 ?C (97.9 ?F) 36.7 ?C (98.1 ?F) 37 ?C (98.6 ?F) 36.8 ?C (98.2 ?F) TempSrc: Oral Oral Oral Oral SpO2: 95% 97% 92% 92% I/O: Intake/Output Summary (Last 24 hours) at 03/10/2021 0613 Last data filed at 03/10/2021 0406 Gross per 24 hour Intake 2500 ml Output 2475 ml Net 25 ml Problem List: ACTIVE PROBLEM LIST Postmenopausal Atrophic Vaginitis Other Chronic Cystitis Hypercholesteremia Pvc (Premature Ventricular Contraction) Hypothyroid Arteriosclerosis of Coronary Artery Gastroesophageal Reflux Disease Hypertension Type 2 Diabetes Mellitus (Hcc) Ventricular Premature Beats Doug (Obstructive Sleep Apnea) Frequent Uti Class 1 Obesity Due to Excess Calories With Serious Comorbidity and Body Mass Index (Bmi) of 34.0 to 34.9 in Adult Physical Exam: Right Lower Extremity: Brace in place. Dressing clean and intact. Sensation intact to light touch in all peripheral nerve distributions of foot and ankle. + active EHL/FHL/ankle DF and ankle PF. Foot is warm and well perfused. Compartments of thigh, lower leg, and foot are soft and easily compressible. Labs: CBC, Coags, BMP, Mg, Phos Recent Labs 03/10/21 0439 WBC 10.88 HB 12.0 HCT 36.9 PLT 217 Impression/Plan: S/P Procedure(s) (LRB): Procedure(s) (LRB): SUTURE REPAIR GLUTEUS MEDIUS (Right) on 03/09/[address] Jeffrey Bryan MD - Weight bearing: non-weight bearing RLE, in brace at all times except hygiene purposes - Antibiotics: meggan-op abx - DVT prophylaxis: Resume home Aspirin and Plavix POD 1 (03/10) and IPC's when in bed - Hemoglobin: pending - Pain control. Encouraged oral medications - Physical Therapy evaluation and treatment. Progressive mobilization - Anticipated D/C: Today - Case management for discharge planning This patient underwent major orthopedic surgery resulting in pain of such severity that cannot be managed with the 30 MED average limit outlined by the [facility] Medical Board [facility]. A prescription was thus provided that exceeds the 30 MED average limit due to greater than usual pain secondary to major orthopaedic surgery. Every effort will be made to de-escalate the patient's opioid use while providing an appropriate level of postoperative pain management. SIGNATURE: Bib Rea MD PATIENT NAME: Korin Harper DATE: March 10, 2021 TIME: 6:13 AM [facility] Progress note 01-03-2021 Note Date & Type Note Facility 01-03-2021 Note HNO ID: [id number] Author: Almas Arriola MA Service: ? Author Type: ? Type: Progress Notes Filed: 01/03/2021 9:45 AM Note Text: PT ASSESSMENT - CASTING ROOM Korin presents for Application of brace. Applied Donjoy Versa Rom hip brace to right leg. Patient has been instructed in Almas Arriola MA [facility] Progress note 01-03-2021 Note Date & Type Note Facility 01-03-2021 Note HNO ID: [id number] Author: Jeffrey Bryan MD Service: ? Author Type: Physician Type: Progress Notes Filed: 01/03/2021 8:59 AM Note Text: Patient: Korin Harper : 1950 Providers Referring physician: Galina Tavarez DO, DO Primary care physician: Galina Tavarez DO, DO Chief complaint: Patient presents with: Right Hip - Consult Patient seen in subspecialty orthopedic hip consultation at the request of Galina Tavarez DO, DO. The final recommendations will be communicated back to the requesting clinician by way of the shared medical record or letter via US mail. HPI: Korin Harper is a 70 year old female seen with a 5 years history of right hip pain, worse over last year since surgery. The onset of pain has been acute on chronic, and the pain is worsening. The pain primarily localizes: right groin pain and right buttock pain. PAIN EVALUATION 01/03/2021 0802 Pain Level: 7 Description: Pressure Ulcer/Injury;Dull stinging Duration Amount of Time: 1 Duration Units: Years Frequency: Continuous The patient denies preceding traumatic injury. The patient does have pain with weight-bearing. The patient does have pain at night. The patient has difficulty with placing shoes and socks. The pain is exacerbated with ADL's, low chairs, managing stairs, pivoting, prolonged sitting, prolonged standing, recreational activities, shoes and socks, squatting and walking. She denies numbness, tingling, or electric shocks. She reports instability, buckling and giving way. Alleviating factors: Sitting Prior pertinent orthopedic surgery: Right hip open removal of calcification Prior interventions: Physical therapy: Yes Bracing: No Assistive devise: cane Pain medications: Ibuprofen Past Medical History PAST MEDICAL HISTORY Diagnosis Date - Diabetes type 2, controlled (HCC) - Heart disease, unspecified 05/07/[address] Vo - Hemorrhage of gastrointestinal tract, unspecified - Irritable bowel syndrome Irritable bowel, sees Dr. Avila - Osteoarthrosis, unspecified whether generalized or localized, other specified sites sees Dr. Mon - Recurrent UTI Salmonella, sees Dr. Rodriguez - Unspecified hypothyroidism Past Surgical History PAST SURGICAL HISTORY Procedure Laterality Date - ABRAS SINGLE LESION right ankle - DELIVERY ONLY , low cervical - DELIVERY ONLY , low cervical - DELIVERY ONLY , low cervical - COLONOSCOP W/ OR W/O [facility] SPEC normal colonscopy, few diverticula - COLONOSCOPY 02/01 - PAST SURGICAL HISTORY OF ganglion left hand - PAST SURGICAL HISTORY OF ganglion right wrist - PAST SURGICAL HISTORY OF tennis elbow repair, both elbows - PAST SURGICAL HISTORY OF bone spur taken off rt shoulder - PAST SURGICAL HISTORY OF Rt hip tendion reattachment - PAST SURGICAL HISTORY OF 05/07/2007 CORONARY ARTERY STENTS CORDIS STENT AND COBALT CHROMIUM - PAST SURGICAL HISTORY OF 12/2009 Lasar varicosities lower left leg - PAST SURGICAL HISTORY OF 02/06 Removal of back nevus-abnormal cells - RELEASE HAND/FINGER EXTEN TENDON 2011 - REMOVE CATARACT, INSERT LENS,EX 07/08 - REVISE MEDIAN N/CARPAL TUNNEL SURG Carpal tunnel decomp, Rt and Left - REVISION OF EYELID,> 1/4 LID MARGIN 01/2014 - TOTAL KNEE REPLACEMENT 06/01/2014 left knee - TRIGGER POINT INJECTION MULTI 1-2 MUSCLE GR 06/2014 left ring finger Family History FAMILY HISTORY Problem Relation Age of Onset - Heart Mother Double by-pass - other (Parkinson's [Other]) Father - Cancer Maternal Grandmother Liver - Cancer Maternal Grandfather - Cancer Paternal Grandmother Social History Social History Tobacco Use - Smoking status: Never Smoker - Smokeless tobacco: Never Used Substance Use Topics - Alcohol use: No - Drug use: No Allergies: ALLERGIES Allergen Reactions - Cat Scan Dye [Other] Intolerance passed out and numbness (IV) - Levaquin [Levofloxa* Intolerance doesn't work - Niacin Intolerance - Sulfa (Sulfonamide * yeast infection - Vicodin [Hydrocodon* Itching Medications Current Outpatient Medications: - metFORMIN ER (GLUCOPHAGE XR) 500 mg 24 hr tablet - estradiol (ESTRACE) 0.01 % (0.1 mg/gram) vaginal cream - Aspirin 81 mg tab - Cholecalciferol, Vitamin D3, (VITAMIN D-3) 2,000 unit ORAL Tab - rosuvastatin calcium(CRESTOR 20 MG TAB) - metoprolol tartrate(LOPRESSOR 50 MG TAB) - calcium carbonate/vitamin d3(CALCIUM 600 + D(3) 600 MG (1,500)-200 UNIT TAB) - levothyroxine sodium(SYNTHROID 100 MCG TAB) - MOBIC 7.5 MG TAB - MAGNESIUM 100 MG CAP Review of Systems: Reviewed and charted into [facility]. Physical Exam: PE reveals a female with the following vitals signs: Wt 84.4 kg (186 lb) BMI 35.14 kg/m? Body mass index is 35.14 kg/m?. General appearance: Well appearing, alert, in no acute distress, well-hydrated, well nourished. Psych: Mo (more content not included)... [facility] Progress note 12-31-2020 Note Date & Type Note Facility 12-31-2020 Note HNO ID: [id number] Author: Bernadette Marks RT(R) Service: ? Author Type: Charge Entry Clerk Type: Progress Notes Filed: 12/31/2020 10:45 AM Note Text: Radiology Service Progress Note PATIENT NAME: Korin Harper DATE OF SERVICE: December 31, 2020 TIME: 10:33 AM PATIENT IDENTITY VERIFICATION COMPLETED USING TWO (2) IDENTIFIERS: Name and Date of confirmed by patient verbally. FALL SCREENING: Has the patient had 2 falls in the last year or 1 fall with injury or currently using an Ambulatory Assistive Device (Walker, Cane, Wheelchair, Crutches, etc.)? No PATIENT GENDER DATA: Female. status: : No status: NO. PATIENT RELEVANT IMPLANT DATA REVIEWED: Yes RADIOLOGY DEPARTMENT: General X-ray: Exam(s) Completed: Pelvis X-Ray: Pelvis with Hip Right PERIPHERAL IV DATA: Not applicable SIGNED BY: RT Martha(R) December 31, 2020 10:33 AM [facility] Progress note 11-02-2020 Note Date & Type Note Facility 11-02-2020 Note HNO ID: [id number] Author: Jesus Cruz (Tech) Service: ? Author Type: Charge Entry Clerk Type: Progress Notes Filed: 11/02/2020 6:26 PM Note Text: Radiology Service Progress Note PATIENT NAME: Korin Harper DATE OF SERVICE: November 02, 2020 TIME: 6:26 PM PATIENT IDENTITY VERIFICATION COMPLETED USING TWO (2) IDENTIFIERS: Name and Date of confirmed by patient verbally. FALL SCREENING: Has the patient had 2 falls in the last year or 1 fall with injury or currently using an Ambulatory Assistive Device (Walker, Cane, Wheelchair, Crutches, etc.)? No PATIENT GENDER DATA: Female. status: : No status: NO. PATIENT RELEVANT IMPLANT DATA REVIEWED: Yes RADIOLOGY DEPARTMENT: MR; Exam(s) Completed: Lower MSK: Hip, right PERIPHERAL IV DATA: Not applicable SIGNED BY: Jesus Cruz November 02, 2020 6:26 PM [facility] Summary Purpose Family History No Family History Records FoundNo Family History Records Found Advance Directives No Advanced Directives Records FoundNo Advanced Directives Records Found Additional Source Comments INFORMATION SOURCE (unrecogn ized section and content) DATE CREATED AUTHOR AUTHOR'S ORGANIZ ATION 10/16/2021 [facility] FOR RECORDS PERTAINING TO PATIENTS WHO ARE OR HAVE BEEN ENROLLED IN A CHEMICAL DEPENDENCY/SUBSTANCEABUSE PROGRAM, SOME INFORMATION MAY BE OMITTED. This clinical summary was aggregated from multiple sources. Caution should be exercised in using it in the provision of clinical care. This summary normalizes information from multiple sources, and as a consequence, information in this document may materially change the coding, format and clinical context of patient data. In addition, data may be omitted in some cases. CLINICAL DECISIONS SHOULD BE BASED ON THE PRIMARY CLINICAL RECORDS. [employer] provides no warranty or guarantee of the accuracy or completeness of information in this document.
[2023-09-28 15:48] LABS: Absolute Lymphocyte Count 0.99 X10^3/uL (0.83-4.51); Absolute Neutrophil Count 11.6 X10^3/uL (2.0-7.7); Basophil# 0.06 X10^3/uL; Basophil% 0.4 % (0-1); Eosinophils% 1.5 % (0-5); Hematocrit 40.7 % (37-47); Hemoglobin 13.3 g/dL (12.0-15.0); Lymphocyte # 0.99 X10^3/ul (0.83-4.51); Lymphocyte % 7.2 % (19-41); Mean Corp Hgb Conc 32.7 g/dL (32-36); Mean Corpuscular Hgb 30.6 pg (27.0-32.0); Mean Corpuscular Volume 93.8 fL (81-99); Mean Platelet Vol. 10.7 fl (6.2-12.0); Monocyte# 0.91 X10^3/uL; Monocyte% 6.6 % (0-10); NRBC Flagged by Analyzer 0 % (0-5); Neutrophil # 11.56 X10^3/uL (2.7-7.7); Neutrophil % 83.9 % (47-70); Platelet Count 253 K/mm3 (150-450); RBC Distribution Width CV 12.5 % (11.6-14.6); Red Blood Count 4.34 M/mm3 (4.2-5.4); White Blood Count 13.8 K/mm3 (4.4-11.0)
[2023-09-28 16:00] LABS: Erythrocyte Sedimentation Rate 14 mm/hr (0-30)
[2023-09-28 16:32] LABS: AST(SGOT) 22 U/L (15-37); Alanine Aminotransfer ALT/SGPT 33 U/L (13-56); Albumin, Serum 3.9 g/dL (3.2-5.0); Alkaline Phosphatase 55 U/L (45-117); Bilirubin, Direct 0.18 mg/dL (0.00-0.30); Creatinine, Serum 0.93 mg/dL (0.55-1.02); EST Glomerular Filtration Rate 63 mL/min (>60); Est Glom Filt Rate - Afr Amer 76 mL/min (>60); Globulin 3.1 g/dL (2.2-4.2)
[2023-10-01 15:08] LABS: Cytoplasmic Ab (C-ANCA) <1:20 titer (Neg:<1:20); Perinuclear Ab (P-ANCA) <1:20 titer (Neg:<1:20)
== END | disposition home or self-care (01) ==
LOC: MTLAB 11:29
PROVIDERS: PCP Family Medicine; Referring Provider Internal Medicine Rheumatology; Visit Provider Internal Medicine Rheumatology
DX: R76.8 Other specified abnormal immunological findings in serum (principal); Z79.899 Other long term (current) drug therapy
CPT/HCPCS: 36415; 80076; 82565; 85025; 85652; 86140; 86256

== ENCOUNTER → 2023-10-15 | Outpatient (CLI) | payer MEDICARE, OTHER, SELFPAY ==
[2023-10-15 15:21] LABS: Erythrocyte Sedimentation Rate 7 mm/hr (0-30)
[2023-10-15 15:24] LABS: Absolute Lymphocyte Count 0.97 X10^3/uL (0.83-4.51); Absolute Neutrophil Count 12.8 X10^3/uL (2.0-7.7); Basophil# 0.06 X10^3/uL; Basophil% 0.4 % (0-1); Eosinophil# 0.18 X10^3/uL; Eosinophils% 1.2 % (0-5); Hematocrit 39.6 % (37-47); Hemoglobin 12.9 g/dL (12.0-15.0); Lymphocyte # 0.97 X10^3/ul (0.83-4.51); Lymphocyte % 6.5 % (19-41); Mean Corp Hgb Conc 32.6 g/dL (32-36); Mean Corpuscular Hgb 30.1 pg (27.0-32.0); Mean Corpuscular Volume 92.5 fL (81-99); Mean Platelet Vol. 10.6 fl (6.2-12.0); Monocyte# 0.86 X10^3/uL; Monocyte% 5.7 % (0-10); NRBC Flagged by Analyzer 0 % (0-5); Neutrophil # 12.77 X10^3/uL (2.7-7.7); Neutrophil % 85.4 % (47-70); Platelet Count 247 K/mm3 (150-450); RBC Distribution Width CV 12.4 % (11.6-14.6); RBC Distribution Width SD 42.5 fl (35.1-43.9); Red Blood Count 4.28 M/mm3 (4.2-5.4)
== END | disposition home or self-care (01) ==
LOC: LAB 14:01
PROVIDERS: PCP Family Medicine; Referring Provider Internal Medicine Rheumatology; Visit Provider Internal Medicine Rheumatology
DX: R79.82 Elevated C-reactive protein (CRP) (principal); D72.829 Elevated white blood cell count, unspecified
CPT/HCPCS: 36415; 85025; 85652; 86140

== ENCOUNTER 2023-10-16 14:10 | Day surgery (SDC) | payer MEDICARE, OTHER, SELFPAY ==
[2023-10-16 14:28] VITALS: BP 148/67; PULSE 79; RESP 16; TEMP 36.7; O2SAT 99; BMI 34.8
[2023-10-16] MEDS: Lactated Ringers 1,000 ML 15 ML IV (14:38)
[2023-10-16 14:58] LABS: Bedside Glucose 262 mg/dL (74-106)
--- NOTE | 2023-10-16 15:15 | EGD_PTH ---
PATIENT: KORIN HARPER LOC: EN U#:[id number] AGE/SX: 73/F ROOM: RE10/16/[address]: Dr. Bakari Matthews DO : 1950 BED: DIS: 10/16/2023 SPEC #: [id number] RECD: 10/17/23 08:39 STATUS: SAMINA REJoann #: [id number] DOUGLAS: 10/16/23 15:[address]: Bakari Matthews DEPT: SURGICAL PATHOLOGY RECD BY: Day Luevano ENTERED: 10/17/23 10:01 SP TYPE: EGD BIOPSY JAN DR: Dr. Galina Tavarez DO Tissues: A - Gastric mucous membrane B - Duodenum, NOS Procedures: Surgery Specimen Level IV HEADER OPERATION: EGD with biopsies PRE-OP DIAGNOSIS: NAFLD, P-ANCA titer positive, Diarrhea TISSUE SUBMITTED: A- Gastric antrum biopsy, B- Duodenum biopsy MICROSCOPIC DIAGNOSIS A. Gastric antrum, biopsy; Mild to moderate gastritis. See microscopic description and comment. B. Duodenum, biopsy; Fragments of duodenal mucosa, no pathologic diagnosis. MARIELLE/mr 10/18/23 COMMENT A. The results of immunohistochemistry for Helicobacter pylori will be reported separately ([id number]). MICROSCOPIC DESCRIPTION Slides are reviewed. A. The specimen shows fragments of gastric mucosa with chronic inflammatory cell infiltrates in the lamina propria consisting of lymphocytes and plasma cells, consistent with mild to moderate chronic gastritis. GROSS DESCRIPTION A. Received in fixative is one container labeled with the patient's name and designated Gastric antrum biopsy. The specimen consists of two irregular fragments of light hummel soft tissue that in aggregate measure 0.4 x 0.2 x 0.1 cm. The specimen is totally submitted in one cassette. B. Received in fixative is one container labeled with the patient's name and designated Duodenum biopsy. The specimen consists of multiple irregular fragments of light hummel soft tissue that in aggregate measure 0.6 x 0.3 x 0.1 cm. The specimen is totally submitted in one cassette. SETH/mr 10/17/2023 TC:3 CPT: 44067h5
--- NOTE | 2023-10-16 15:15 | IMM_PTH ---
PATIENT: KORIN HARPER LOC: EN U#:[id number] AGE/SX: 73/F ROOM: RE10/16/[address]: Dr. Bakari Matthews DO : 1950 BED: DIS: 10/16/2023 SPEC #: [id number] RECD: 10/17/23 13:36 STATUS: SAMINA REQ #: [id number] DOUGLAS: 10/16/23 15:[address]: Bakari Matthews DEPT: IMMUNOHISTOCHEMISTRY RECD BY: Maximino Torres ENTERED: 10/17/23 13:37 SP TYPE: IMMUNO OTHR DR: Dr. Galina Tavarez DO Tissues: A - Stomach, NOS Procedures: H Pylori (initial) PHYSICIAN & INSTITUTION [place] [id number] SPECIMEN INFORMATION: Tissue Source: A- Gastric antrum ,biopsy Clinical Info: NAFLD,P-ANCA titer positive, Diarrhea Specimen Number: [id number] CPT code: 80628 METHODOLOGY: Deparaffinized sections of prefer/formalin-fixed tissue or PAP/DQ stained slides are incubated with monoclonal/polyclonal antibodies/oligonucleotide probes. Localization is made via biotin free immunoperoxidase method. Appropriate controls are performed and reacted as expected. Results on target cell population are indicated in the following table: RESULTS: ANTIBODY / CLONE RESULT Block A H Pylori (polyclonal) negative These tests were developed and their performance characteristics determined by [facility]. They may not have been cleared or approved by the U.S. Food and Drug Administration. The FDA has determined that such clearance or approval is not necessary. The above immunohistochemical/dualISH markers are ordered and reviewed by the Pathologist. INTERPRETATION: A. Gastric antrum, biopsy: Negative for Helicobacter pylori organisms. SJ:kalli 10/18/2023
--- NOTE | 2023-10-16 16:27 | HP.PCM_ITS ---
History and Physical Date of Admission: 10/16/23 KORIN HARPER, is a 72 F who presents to the office today for follow up. [facility] ED? *[facility] established .11.18 as ED f/u. She has several abdominal pains: lower abdominal cramping; mid abdominal sharp pain; RUQ/epigastric tenderness that all occur frequently. One episode of loose stools lasting for 24hours following ingestion of a salad. BM are typically normal 3-4 soft BM/day.?Biochemical .11.18?ESR, CRP, LDH, LENCHO, haptoglobin, A1c, ferritin, coag, VITALIY comp, AMA, ASM, hepatitis, HIV without pertinent abnormality.? AST H53-ALT H84-AP H37, ceruloplasmin L18.3, apANCA H1:40?Elastography ..?stiffness 7.1kPa?GET 11.08.21?WNL?Biochemical 11.21.21?GGT WNL? IgG L502, IgG2 L124, IgE L2? OV 12.06.21 refer to [facility] rheumatology for low-positive apANCA; possible MRCP?EGD and colonoscopy 02.01.22?EGD irregular Zline 37cm; three 5mm hyperplastic gastric polyps; gastritis; duodenitis.? Colonoscopy diverticulosis; congested mucosa three polyps; rectal prolapse. No path changes? OV 02.15.22 continue ongoing management of DMII for NAFLD; GERD well controlled with PPI; start fiber? OV 05.01.22 loose stools have improved with dairy reduction and increased fiber. Reduce carbohydrate intake.? OV 08.02.22 continue ursodiol use. Rheumatology declined to see her.?Biochemical .11.19?T4 WNL? apANCA H1:160, TSH H5.38, T3 L1.8?US and elastography 08.14.22?hepatic measurement 16.7cm fatty infiltration, stiffness 6.1kPa?EGD 11.06.22?non-severe esophagitis; small amount of food in gastric body and duodenum; gastritis.? OV 11.14.22 possible update GET if symptoms return.?US and elastography 8.02.18?hepatic measurement 14.7cm with fatty infiltration, stiffness 7.8kPa? OV 05.15.23 Pt stable since last visit. Has established care with Rheumatology Dr. Good. Has not had any issues swallowing or choking episodes. Heartburn under control. BM normal. Continues meds prescribed by this clinic. ROS Const Constitutional: No fatigue ENT ENT: No difficulty swallowing Gastro GI: No abdominal pain, belching, bloating, change in bowel habits, change in stool character, coffee ground emesis, constipation, cramping, diarrhea, heartburn, difficulty swallowing, feeling full early, excessive flatus, incontinent of stools, Vomiting blood/hematemesis, Blood in stool, loose stools, Black,tarry stools, nausea/dyspepsia, pain with swallowing, vomiting or other Musc Musculoskeletal: Positive for abnormal gait, joint pain, joint swelling, muscle weakness, stiffness and Arthritis Skin Skin: No yellowing of the eye or itchy eyes Neuro Neurology: Positive for abnormal gait Psych Psychiatric: No anxiety and No depression Endo Endocrine: No fatigue Aller/Imm Allergy/Immunologic: No itchy eyes Henok/Lymp Hematologic/Lymphatic: Positive for easy bruising; No easy bleeding Exam Const General: cooperative and healthy appearing [facility] Head: normocephalic and atraumatic Ears: hearing grossly normal bilaterally Nose: external nose normal Face and sinus: normal facial exam and face symmetric Mouth: oral mucosae normal Throat: posterior oropharynx normal Neck Neck: full ROM and no lymphadenopathy Other: Palpable muscle spasms and pain left trapezius with no obvious deformity upon palpation. Resp Effort & Inspection: normal respiratory effort Skin General: no rashes or lesions noted Neuro General: patient alert Psych Appearance: grossly normal Mental Status: mental status grossly normal Quality Reporting Tobacco Screening ([facility] 138) Smoking Status: Never smoker Assessment and Plan Assessment and Plan (1) NAFLD (nonalcoholic fatty liver disease): Status: Acute Plan: Due to DM, obesity. liver elastography displays 8.3KPA. This is stable. Ultrasound displays that the liver is smaller at 16cm. Discussed weight loss options and healthy eating, along with blood sugar control. Last HgbA1c was in the 7's. She is on ursodiol bid. f/u 6 mos (2) P-ANCA titer positive: Status: Acute Plan: Repeat lab Follow up with rheumatology> (3) Diarrhea: Status: Chronic Qualifiers: Diarrhea type: functional diarrhea Qualified Code(s): K59.1 - Functional diarrhea Plan: Not currently problematic Fecal incontinence due to rectal prolapse is part of the issue, but not overly bothersome Better with increased fiber in diet
[2023-10-16 17:16] VITALS: BP 122/68; BP 148/67; PULSE 78; RESP 14; TEMP 36.4; O2SAT 91
--- NOTE | 2023-10-16 17:19 | OP.EGD_ITS ---
Patient Name: Dayami Hall Procedure Date: 10/16/2023 4:55 PM Date of : 1950 Age: 73 Procedure: Upper GI endoscopy Indications: Functional Dyspepsia, Heartburn Providers: Bakari Matthews DO Referring MD: Galina Tavarez Medicines: Monitored Anesthesia Care Patient Profile: This is a 73 year old female. Refer to note in patient chart for documentation of history and physical. Patient has symptoms of chronic epigastric abdominal pain and chronic chest pain. Complications: No immediate complications. Procedure: Pre-Anesthesia Assessment: - Prior to the procedure, a History and Physical was performed, and patient medications and allergies were reviewed. The patient is competent. The risks and benefits of the procedure and the sedation options and risks were discussed with the patient. All questions were answered and informed consent was obtained. Patient identification and proposed procedure were verified in the pre-procedure area. Mental Status Examination: alert and oriented. Airway Examination: normal oropharyngeal airway and neck mobility. Respiratory Examination: clear to auscultation. CV Examination: normal. Prophylactic Antibiotics: The patient does not require prophylactic antibiotics. Prior Anticoagulants: The patient has taken no anticoagulant or antiplatelet agents. ASA Grade Assessment: II - A patient with mild systemic disease. After reviewing the risks and benefits, the patient was deemed in satisfactory condition to undergo the procedure. The anesthesia plan was to use monitored anesthesia care (MAC). Immediately prior to administration of medications, the patient was re-assessed for adequacy to receive sedatives. The heart rate, respiratory rate, oxygen saturations, blood pressure, adequacy of pulmonary ventilation, and response to care were monitored throughout the procedure. The physical status of the patient was re-assessed after the procedure. After obtaining informed consent, the endoscope was passed under direct vision. Throughout the procedure, the patient's blood pressure, pulse, and oxygen saturations were monitored continuously. The Endoscope was introduced through the mouth, and advanced to the second part of duodenum. The upper GI endoscopy was accomplished without difficulty. The patient tolerated the procedure well. Scope In: 5:07:33 PM Scope Out: 5:09:39 PM Total Procedure Duration Time 0 hours 2 minutes 6 seconds Findings: The examined esophagus was normal. Patchy mildly erythematous mucosa without bleeding was found in the gastric antrum. Biopsies were taken with a cold forceps for histology. Verification of patient identification for the specimen was done. Estimated blood loss was minimal. Biopsies were taken with a cold forceps for Helicobacter pylori testing. Verification of patient identification for the specimen was done. Estimated blood loss was minimal. No gross lesions were noted in the first portion of the duodenum. Biopsies were taken with a cold forceps for histology. Verification of patient identification for the specimen was done. Estimated blood loss was minimal. Impression: - Normal esophagus. - Erythematous mucosa in the antrum. Biopsied. - No gross lesions in the first portion of the duodenum. Biopsied. Recommendation: - Discharge patient to home. - Resume previous diet today. - Continue present medications. - Await pathology results. Procedure Code(s): --- Professional --- 94006, Esophagogastroduodenoscopy, flexible, transoral; with biopsy, single or multiple CPT copyright 2021 [employer]. All rights reserved. The codes documented in this report are preliminary and upon rigging engineer review may be revised to meet current compliance requirements. Bakari Matthews DO 10/16/2023 5:19:15 PM This report has been signed electronically. Number of Addenda: 0 Note Initiated On: 10/16/2023 4:55 PM
--- NOTE | 2023-10-16 17:19 | OP.CCLET_ITS ---
10/16/2023 Galina Tavarez [address] [place] [address] Re : Upper GI endoscopy procedure for Dayami Hall Dear Dr. Tavarez This procedure was performed on Monday, October 16, 2023. My impressions and recommendations are as follows: Impressions : - Normal esophagus. - Erythematous mucosa in the antrum. Biopsied. - No gross lesions in the first portion of the duodenum. Biopsied. Recommendations : - Discharge patient to home. - Resume previous diet today. - Continue present medications. - Await pathology results. My findings are described in the full procedure note, which is enclosed. If I can be of further assistance, please feel free to contact me at . Sincerely, Bakari Matthews, 10/16/2023 5:19:15 PM This report has been signed electronically.
[2023-10-16 17:21] VITALS: BP 124/68; BP 148/67; PULSE 76; RESP 18; O2SAT 95
[2023-10-16 17:27] VITALS: BP 109/59; BP 148/67; PULSE 71; RESP 18; O2SAT 95
[2023-10-16 17:29] VITALS: BP 115/80; BP 148/67; PULSE 72; RESP 18; TEMP 36.8; O2SAT 94
[2023-10-16 18:01] VITALS: BP 148/67
== END 2023-10-16 18:03 | disposition home or self-care (01) ==
LOC: EN 14:10 → AC 14:12
PROVIDERS: PCP Family Medicine; Referring Provider Family Medicine; Visit Provider Internal Medicine Gastroenterology
PROC: 0DJ08ZZ Inspection of Upper Intestinal Tract, Via Natural or Artificial Opening Endoscopic (ICD-10-PCS; CPT 43235; principal; 2023-10-16 15:10)
DX: K29.70 Gastritis, unspecified, without bleeding (principal); E11.9 Type 2 diabetes mellitus without complications; K76.0 Fatty (change of) liver, not elsewhere classified; K30 Functional dyspepsia; K31.89 Other diseases of stomach and duodenum; K59.1 Functional diarrhea; I25.10 Atherosclerotic heart disease of native coronary artery without angina pectoris; I10 Essential (primary) hypertension; K21.9 Gastro-esophageal reflux disease without esophagitis; R23.8 Other skin changes; I25.2 Old myocardial infarction; E03.9 Hypothyroidism, unspecified; G47.30 Sleep apnea, unspecified; Z79.899 Other long term (current) drug therapy; Z79.01 Long term (current) use of anticoagulants; Z79.82 Long term (current) use of aspirin; Z79.84 Long term (current) use of oral hypoglycemic drugs; Z86.16 Personal history of COVID-19
CPT/HCPCS: 43239; 82962; 88305; 88342; J7120; J2405

== ENCOUNTER → 2023-10-22 | Outpatient (CLI) | payer MEDICARE, OTHER, SELFPAY ==
[2023-10-22 09:27] LABS: Erythrocyte Sedimentation Rate 7 mm/hr (0-30)
[2023-10-22 09:29] LABS: Absolute Lymphocyte Count 1.27 X10^3/uL (0.83-4.51); Absolute Neutrophil Count 8.8 X10^3/uL (2.0-7.7); Basophil# 0.08 X10^3/uL; Basophil% 0.7 % (0-1); Eosinophils% 2.6 % (0-5); Hematocrit 42.5 % (37-47); Hemoglobin 13.6 g/dL (12.0-15.0); Lymphocyte # 1.27 X10^3/ul (0.83-4.51); Lymphocyte % 11.1 % (19-41); Mean Corpuscular Hgb 29.6 pg (27.0-32.0); Mean Corpuscular Volume 92.4 fL (81-99); Mean Platelet Vol. 10.4 fl (6.2-12.0); Monocyte# 0.93 X10^3/uL; Monocyte% 8.1 % (0-10); NRBC Flagged by Analyzer 0 % (0-5); Neutrophil # 8.83 X10^3/uL (2.7-7.7); Neutrophil % 76.9 % (47-70); Platelet Count 293 K/mm3 (150-450); RBC Distribution Width CV 12.7 % (11.6-14.6); RBC Distribution Width SD 42.8 fl (35.1-43.9); White Blood Count 11.5 K/mm3 (4.4-11.0)
[2023-10-22 09:47] LABS: ALB/GLOB Ratio 1.2 RATIO (0.9-2.4); AST(SGOT) 20 U/L (15-37); Alanine Aminotransfer ALT/SGPT 24 U/L (13-56); Alkaline Phosphatase 63 U/L (45-117); Anion Gap 7 (5-15); BUN 18 mg/dL (7-18); BUN/Creat Ratio 21.4 RATIO (10-20); CRP 6.53 mg/L (0.0-3.0); Calcium,Total 9.2 mg/dL (8.5-10.1); Chloride 106 mmol/L (98-107); Creatinine, Serum 0.84 mg/dL (0.55-1.02); EST Glomerular Filtration Rate 71 mL/min (>60); Est Glom Filt Rate - Afr Amer 85 mL/min (>60); Globulin 3.4 g/dL (2.2-4.2); Glucose 297 mg/dL (74-106); LDH 173 U/L (84-246); Potassium 4.2 mmol/L (3.5-5.1); Protein, Total 7.4 g/dL (6.4-8.2); Sodium Level 138 mmol/L (136-145)
== END | disposition home or self-care (01) ==
LOC: LAB 08:47
PROVIDERS: PCP Family Medicine; Referring Provider Family Medicine; Visit Provider Family Medicine
DX: D72.829 Elevated white blood cell count, unspecified (principal); R79.82 Elevated C-reactive protein (CRP); R06.00 Dyspnea, unspecified
CPT/HCPCS: 36415; 80053; 83615; 85025; 85652; 86140

== ENCOUNTER → 2023-10-23 | Outpatient (CLI) | payer MEDICARE, OTHER, SELFPAY ==
--- NOTE | 2023-10-23 13:52 | CT_ITS ---
STUDY: CT CHEST WITHOUT CONTRAST REASON FOR EXAM: Female, 73 years old. ABNORMAL CHEST XRAY, DYSPNEA RADIATION DOSAGE (If Supplied By Facility): CTDIvol = ( 9.72 ) mGy, DLP = ( 347.80 ) mGycm TECHNIQUE: Transaxial imaging was performed without the administration of intravenous contrast material. Multiplanar coronal and sagittal images were reformatted. Individualized dose optimization techniques were used for this CT. COMPARISON: Comparison is made with prior chest radiograph dated October 20, [address] scan of the thorax dated January 17, 2019. FINDINGS: CHEST Focal increased linear markings in the posterior aspect of the left upper lobe suggestive of scarring. Mild increased linear markings in the lateral aspect of the lingular segment of the left upper lobe as well as at the lung bases slightly more prominent on the left side suggestive of scarring. There is no demonstrated pleural abnormality. There are calcifications of the coronary arteries. There are multiple small lymph nodes within the mediastinum, which are normal in size and morphology most compatible with reactive lymph hyperplasia. Normal hilar regions. Normal unenhanced pulmonary arteries. There is atherosclerotic calcification of the aortic arch. There are multi-level degenerative changes of the thoracic spine. Findings suggestive of hemangioma of the T12 vertebrae. There is no demonstrated abnormality of the visualized upper abdomen. CT/Chest without Contrast IMPRESSION: Findings suggesting mild scarring at both lung bases as well as in the left upper lobe and lingular segment of the left upper lobe. Electronically Signed: Zachary Taylor MD at 11:36 EDT ,
== END | disposition home or self-care (01) ==
LOC: CT 13:52
PROVIDERS: PCP Family Medicine; Referring Provider Family Medicine; Visit Provider Family Medicine
DX: R06.00 Dyspnea, unspecified (principal); D72.829 Elevated white blood cell count, unspecified
CPT/HCPCS: 71250

== ENCOUNTER → 2023-10-30 | Outpatient (CLI) | payer MEDICARE, OTHER, SELFPAY ==
--- NOTE | 2023-10-30 13:45 | STRESSREP ---
Stress Test Report Pharmacologic myocardial perfusion stress test. 73-year-old lady with a history of dyspnea and previous coronary artery disease Resting EKG demonstrates sinus rhythm with a rate of 71 bpm. Resting blood pressure is 144/78 mmHg. 0.4 mg of regadenoson was infused per usual protocol followed by rapid intravenous saline flush injection. Continuous EKG monitoring was performed. The maximum heart rate was 87 bpm which was 59% of max impacted heart rate the maximum workload was 1 metabolic equivalent. At rest there were no ST or T wave changes noted to suggest ischemia and at peak infusion nonspecific ST changes were noted which did not meet the criteria for ischemia. No clinical angina is noted. The final blood pressure was 128/78 mmHg. Myocardial perfusion protocol. 11.3 mCi of technetium 99m sestamibi was injected at rest. 0.4 mg of regadenoson was infused per usual protocol. At peak infusion 33.7 mCi of technetium 99m sestamibi was injected stress images were obtained stress and rest images were reconstructed and compared in the short axis vertical long and horizontal long axis. Gated images were also obtained. Perfusion SPECT analysis: Review of the stress images demonstrate normal uptake of tracer noted in all areas of the myocardium. The resting images similar demonstrated normal uptake of tracer noted in all areas of the myocardium. No areas of reversibility are noted to suggest ischemia and no previous infarct is noted. Gated SPECT analysis: The gated ejection fraction is 73%. Conclusion: Normal pharmacologic myocardial perfusion stress test. Preserved ejection fraction.
== END | disposition home or self-care (01) ==
PROVIDERS: PCP Family Medicine; Referring Provider Nurse Practitioner Family; Visit Provider Nurse Practitioner Family
DX: R06.09 Other forms of dyspnea (principal); Z95.5 Presence of coronary angioplasty implant and graft
CPT/HCPCS: 78452; 93017; A9500; A4216; J2785

== ENCOUNTER → 2023-11-13 | Outpatient (CLI) | payer MEDICARE, OTHER, SELFPAY ==
[2023-11-13 10:24] LABS: Erythrocyte Sedimentation Rate 9 mm/hr (0-30)
[2023-11-13 10:59] LABS: CRP < 2.90 mg/L (0.0-3.0); Prolactin 10.7 ng/mL
[2023-11-14 14:09] LABS: Anti-Centromere B Ab <0.2 AI (0.0-0.9); Anti-Chromatin <0.2 AI (0.0-0.9); Anti-Jo <0.2 AI (0.0-0.9); Anti-Scleroderma-70 AB <0.2 AI (0.0-0.9); Anti-dsDNA Ab 1 IU/mL (0-9); RNP Ab <0.2 AI (0.0-0.9); SJOGREN'S Anti-SS-A test < 0.2 AI (0.0-0.9); SJOGREN'S Anti-SS-B test < 0.2 AI (0.0-0.9); Smith Ab <0.2 AI (0.0-0.9)
[2023-11-19 09:07] LABS: Alpha-1-Globulins 0.2 g/dL (0.0-0.4); Alpha-2-Globulins 0.7 g/dL (0.4-1.0); Cytoplasmic Ab (C-ANCA) <1:20 titer (Neg:<1:20); Dopamine, Pl <30 pg/mL (0-48); Epinephrine, Pl 30 pg/mL (0-62); Gastrin, Serum 114 pg/mL (0-115); IMMUNOFIXATION RESULT,S Comment: (.); Immunoglobulin A 168 mg/dL (64-422); Immunoglobulin G 946 mg/dL (586-1602); Immunoglobulin M 122 mg/dL (26-217); Norepinephrine, Pl 536 pg/mL (0-874); PROEL- TOTAL PROTEIN 7.2 g/dL (6.0-8.5); Perinuclear Ab (P-ANCA) <1:20 titer (Neg:<1:20)
== END | disposition home or self-care (01) ==
PROVIDERS: PCP Family Medicine; Referring Provider Internal Medicine Gastroenterology; Visit Provider Internal Medicine Gastroenterology
DX: R06.09 Other forms of dyspnea (principal); R19.7 Diarrhea, unspecified
CPT/HCPCS: 36415; 82384; 82533; 82784; 82941; 84146; 84165; 85652; 86140; 86225; 86235; 86256; 86334

== ENCOUNTER → 2023-11-16 | Outpatient (CLI) | payer MEDICARE, OTHER, SELFPAY ==
[2023-11-21 18:07] LABS: 5-HIAA, 24UR 4.5 mg/24 hr (0.0-14.9); 5-HIAA, UR 1.9 mg/L (Undefined)
== END | disposition home or self-care (01) ==
LOC: LABSPEC 08:07
PROVIDERS: PCP Family Medicine; Referring Provider Internal Medicine Gastroenterology; Visit Provider Internal Medicine Gastroenterology
DX: R06.09 Other forms of dyspnea (principal); R19.7 Diarrhea, unspecified
CPT/HCPCS: 81050; 83497

== ENCOUNTER → 2023-11-27 | Outpatient (CLI) | payer MEDICARE, OTHER, SELFPAY ==
--- NOTE | 2023-11-27 10:19 | NM_ITS ---
CLINICAL: 73-year-old female with history of abdominal bloating. SEMI-SOLID PHASE 99m Tc SULFUR COLLOID GASTRIC EMPTYING STUDY COMPARISON: Previous gastric emptying examination dated 11/08/2021 FINDINGS: The patient was administered 1.1 mCi of 99m Tc sulfur colloid mixed with oatmeal and consumed per os. Image acquisitions in the anterior-posterior projections were obtained for 60 minutes. There is prompt visualization of the stomach. There is no gastroesophageal reflux identified. The T ? raw data emptying was calculated to be 39.06 minutes compared to 52.94 minutes demonstrated on the previous examination (Normal: 12-56 minutes). NM/Gastric Emptying Study IMPRESSION: 1. NORMAL 99m Tc sulfur colloid semi-solid phase (oatmeal) gastric emptying imaging examination. A. There is normal and preserved semi-solid phase gastric emptying compared to normal controls. (Harvey et al, J Nucl Med Tech 38: 186, 2010). B. Overall compared to the semisolid phase examination dated 11/08/2021, there is minimal interval change. Electronically Signed: Manuel Jacob DO at 8:13 EDT ,
== END | disposition home or self-care (01) ==
LOC: NM 10:19
PROVIDERS: PCP Family Medicine; Referring Provider Internal Medicine Gastroenterology; Visit Provider Internal Medicine Gastroenterology
DX: E11.9 Type 2 diabetes mellitus without complications (principal)
CPT/HCPCS: 78264; A9541

== ENCOUNTER → 2023-12-12 | Outpatient (CLI) | payer MEDICARE, OTHER, SELFPAY ==
[2023-12-12 15:52] LABS: Anion Gap 7 (5-15); BUN 22 mg/dL (7-18); BUN/Creat Ratio 20.8 RATIO (10-20); Calcium,Total 9.6 mg/dL (8.5-10.1); Chloride 102 mmol/L (98-107); Creatinine, Serum 1.06 mg/dL (0.55-1.02); EST Glomerular Filtration Rate 54 mL/min (>60); Est Glom Filt Rate - Afr Amer 65 mL/min (>60); Glucose 318 mg/dL (74-106); Potassium 4.1 mmol/L (3.5-5.1); Sodium Level 135 mmol/L (136-145)
== END | disposition home or self-care (01) ==
PROVIDERS: PCP Family Medicine; Referring Provider Physician Assistant Medical; Visit Provider Physician Assistant Medical
DX: I10 Essential (primary) hypertension (principal)
CPT/HCPCS: 36415; 80048

== ENCOUNTER → 2024-01-02 | Outpatient (CLI) | payer MEDICARE, OTHER, SELFPAY ==
[2024-01-02 13:31] LABS: AST(SGOT) 31 U/L (15-37); Alanine Aminotransfer ALT/SGPT 37 U/L (13-56); Albumin, Serum 4.1 g/dL (3.2-5.0); Alkaline Phosphatase 50 U/L (45-117); Bilirubin, Direct 0.11 mg/dL (0.00-0.30); Cholesterol 112 mg/dL (200); Globulin 3.4 g/dL (2.2-4.2); High Density Lipoprotein 34 mg/dL; Protein, Total 7.5 g/dL (6.4-8.2); Triglycerides 215 mg/dL; Very Low Density Lipoprotein 43 mg/dL (5-40)
== END | disposition home or self-care (01) ==
LOC: MTLAB 10:16
PROVIDERS: PCP Family Medicine; Referring Provider Nurse Practitioner Family; Visit Provider Nurse Practitioner Family
DX: E78.00 Pure hypercholesterolemia, unspecified (principal)
CPT/HCPCS: 36415; 80061; 80076

== ENCOUNTER 2024-01-24 09:00 | Outpatient (RCR) | payer MEDICARE, OTHER, SELFPAY ==
--- NOTE | 2023-12-20 06:57 | HP.OTEVAL ---
Patient's Visit Information Visit Information Visit Information: KORIN HARPER is a 73 year old F, referred to Occupational Therapy by Dr. Blane Gudino MD, with a diagnosis of left IF trigger finger. Date of Evaluation: 12/19/23 Occupational Therapist: Ghazala Caal, JULIO/Kale, CHT Subjective Subjective: This 73 year old female was seen for OT eval -with dx of left IF trigger finger and s/p [id number] release. Pt states since sx she has had increase pain and increase difficulty using her left hand with ADLs and IADls. DOS 10/25/23 trigger finger release pt arrives s/p 7 weeks and 6 days s/p reporting pain 8-9/10 with activity and states difficulty with ROM of digit making a fist and sensitivity. pt would like to know what more she can do to decrease pain to use her hand with ADLs. Pain left hand: Current Pain Intensity: 8 Pain Intensity Range: 8 and 9 ROM MP: IF right 0/75 left 0/70 PIP: IF right 0/95 left 0/75 DIP: IF right 0/40 Left 0/40 Edema PIP: right IF 6.5 left 6.8 Sensation Sensation Comments: denies Quick DASH-Disab of Arm,Shoulder& Hand Quick DASH Score: 40.9075 Goals Goal:100% adherence to protocol: Yes Comment: trigger finger release guidelines Goal:Daily scar massage when approriate: Yes Goal:ROM equal to unaffected hand: Yes Goal:Cytometry Technologist/Pinch strength at least 75% of unaffected hand: Yes Goal:No pain with affected hand use: Yes Goal:Decrease scar hypersensitivity: Yes Rehabilitation General Assessment: pt arrives 7 weeks and 6 days s/p from a left IF A1 cherise release- pt demo with painful ROM and limited ability to use hand with ADLs due to pain and lack of ROM. pt would benefit from skilled OT services 1-2x week for 4-6 weeks to assist pt in decreasing pain increasing her ROM to return to her PLOF with ADLs. Today therapist ed. pt on dx and sx as well as scar mtg, tendon glides. Pt demo understanding and agrees to POC. Rehabilitation Potential: Good Anticipated Interventions Anticipated Interventions: A/AAROM/PROM, Strengthening, Edema Control, Scar Care, Triggerpoint Release, Desensitization, Sensory Retraining, Modalities, Orthoses, Joint Protection/Energy Conservation, Ergonomic Education, Education re assistive Equipment, Education re Diagnosis and Home Program Visit Plan Frequency: 1-2x /Week Duration: 4-6 Weeks TEXT: Thank you for the opportunity to evaluate your patient. For Medicare and Medicare HMO plans, please review the plan of care and approve it. It will need to be FAXED BACK to us at [phone] for Medicare purposes. Please let me know if there are questions or concerns regarding this plan of care. Physician Signature: Date:
--- NOTE | 2024-01-24 16:10 | HP.OTDCSUM_ITS ---
Discharge Summary D/C Summary: It has been my pleasure to treat KORIN HARPER under orders from Dr. Blane Gudino MD, for the diagnosis of left IF trigger finger for a total of 11 visit(s). Please see the following information for a summary of their discharge status. Overall Improvement % Improvement: 80 Objective Objective/Function: rec'd OA compression gloves /or copper fit do contrast bath to decrease joint stiffness- pt states she has returned to performing ADLs IND. still has some difficulty wit daily tasks 20% of the time. Goals Patient Goals: Decrease Pain, Use Hand/Wrist/Arm Normally Again and Be More Independent in ADLS Goal:100% adherence to protocol: Yes Goal Progress: Goal Met Goal:Daily scar massage when approriate: Yes Goal Progress: Goal Met Goal:ROM equal to unaffected hand: Yes Goal Progress: Goal Met Goal:Beef Cattle Specialist/Pinch strength at least 75% of unaffected hand: Yes Goal:No pain with affected hand use: Yes Goal:Decrease scar hypersensitivity: Yes Plan Plan: D/C D/C Information Discharge Comments: pt progressed well with her therapy. pts scar sensitivity is better- she continues to have tenderness with some ADLs that stops her from doing 20% of the time. pt is to continue with use of left hand- scar mtg- use of elastomer at night and light ROM ex. pt demo understanding of HEP and agrees to D.C. d/c sentence: If there are questions or concerns regarding this patient's occupational therapy, please fell free to call me at [phone]. Thank you for the referral of this patient. Sincerely, Ghazala Caal, OTR/L, CHT
== END 2024-01-24 19:00 | disposition home or self-care (01) ==
LOC: OT 09:00
PROVIDERS: PCP Family Medicine; Referring Provider Orthopaedic Surgery Hand Surgery; Visit Provider Orthopaedic Surgery Hand Surgery
DX: M65.322 Trigger finger, left index finger (principal)
CPT/HCPCS: 97035; 97110; 97140; 97166; 97530

== ENCOUNTER → 2024-02-20 | Outpatient (CLI) | payer MEDICARE, OTHER, SELFPAY ==
[2024-02-20 12:16] LABS: Absolute Lymphocyte Count 1.07 X10^3/uL (0.83-4.51); Basophil# 0.03 X10^3/uL; Basophil% 0.6 % (0-1); Eosinophil# 0.14 X10^3/uL; Eosinophils% 2.9 % (0-5); Hematocrit 37.4 % (37-47); Hemoglobin 12.1 g/dL (12.0-15.0); Lymphocyte # 1.07 X10^3/ul (0.83-4.51); Lymphocyte % 21.8 % (19-41); Mean Corp Hgb Conc 32.4 g/dL (32-36); Mean Corpuscular Hgb 30.2 pg (27.0-32.0); Mean Corpuscular Volume 93.3 fL (81-99); Mean Platelet Vol. 10.8 fl (6.2-12.0); Monocyte% 12.2 % (0-10); NRBC Flagged by Analyzer 0 % (0-5); Neutrophil # 3.04 X10^3/uL (2.7-7.7); Neutrophil % 62.1 % (47-70); Platelet Count 236 K/mm3 (150-450); RBC Distribution Width CV 12.8 % (11.6-14.6); RBC Distribution Width SD 43.8 fl (35.1-43.9); Red Blood Count 4.01 M/mm3 (4.2-5.4); White Blood Count 4.9 K/mm3 (4.4-11.0)
[2024-02-20 12:17] LABS: Erythrocyte Sedimentation Rate 3 mm/hr (0-30)
[2024-02-20 13:20] LABS: AST(SGOT) 23 U/L (15-37); Alanine Aminotransfer ALT/SGPT 26 U/L (13-56); Albumin, Serum 3.9 g/dL (3.2-5.0); Alkaline Phosphatase 39 U/L (45-117); Bilirubin, Direct 0.11 mg/dL (0.00-0.30); CRP < 2.90 mg/L (0.0-3.0); Creatinine, Serum 0.96 mg/dL (0.55-1.02); EST Glomerular Filtration Rate 60 mL/min (>60); Est Glom Filt Rate - Afr Amer 73 mL/min (>60); Free T3 2.2 pg/mL (2.18-3.98); Protein, Total 6.9 g/dL (6.4-8.2); T4 Free Direct 0.92 ng/dL (0.76-1.46); Thyroid Stim Hormone (TSH) 3.06 uIU/mL (0.358-3.74)
[2024-02-22 15:09] LABS: Cytoplasmic Ab (C-ANCA) <1:20 titer (Neg:<1:20); PROEL- A/G Ratio 1.7 (0.7-1.7); PROEL- Albumin 4.1 g/dL (2.9-4.4); PROEL- Alpha-1 Globulin 0.2 g/dL (0.0-0.4); PROEL- Alpha-2 Globulin 0.6 g/dL (0.4-1.0); PROEL- Beta Globulin 1.1 g/dL (0.7-1.3); PROEL- Gamma Globulin 0.6 g/dL (0.4-1.8); PROEL- Globulin, Total 2.4 g/dL (2.2-3.9); PROEL- TOTAL PROTEIN 6.5 g/dL (6.0-8.5); PROEL-M-Spike Not Observed g/dL (Not Observed); PROELU- Albumin, Urine 37.3 % (.); PROELU- Alpha-1-Globulin,Ur 3.8 % (.); PROELU- Alpha-2-Globulin,Ur 13.2 % (.); PROELU- Beta Globulin, Ur 28.6 % (.); PROELU- Gamma Globulin, Ur 17.1 % (.); Perinuclear Ab (P-ANCA) <1:20 titer (Neg:<1:20); Total Protein, Ur 13.8 mg/dL (Not Estab.)
== END | disposition home or self-care (01) ==
PROVIDERS: PCP Family Medicine; Referring Provider Family Medicine; Visit Provider Family Medicine
DX: R76.8 Other specified abnormal immunological findings in serum (principal); D72.829 Elevated white blood cell count, unspecified; R79.82 Elevated C-reactive protein (CRP); Z79.899 Other long term (current) drug therapy; E03.9 Hypothyroidism, unspecified
CPT/HCPCS: 36415; 80076; 82565; 84165; 84166; 84439; 84443; 84481; 85025; 85652; 86140; 86256

== ENCOUNTER 2024-03-14 10:00 | Emergency (ER) | payer MEDICARE, OTHER, SELFPAY ==
[2024-03-14 10:00] VITALS: BP 153/82; PULSE 75; PULSE 77; RESP 16; TEMP 37; O2SAT 98; O2SAT 99; BMI 37.5
--- NOTE | 2024-03-14 10:31 | CT_ITS ---
INDICATION: trauma (left) EXAMINATION: CT BRAIN - CT Head or Brain W/O Contrast Injection TECHNIQUE: Multiple axial images were obtained of the head without intravenous contrast. The protocol utilizes one or more of the following dose reduction techniques: automated exposure control, adjustment of mA and/or kV according to patient size,and/or use of iterative reconstruction technique. IV Contrast dosage and agent: None. RADIATION DOSAGE (If Supplied By Facility): CTDIvol = ( 44.99 ) mGy, DLP = ( 745.49 ) mGycm COMPARISON: Prior study dated: 07/15/2015 FINDINGS: BRAIN PARENCHYMA: No intra- or extra-axial hemorrhage. No evidence of acute infarct. No intracranial mass or mass effect. There is preservation of the zacarias/white matter interface. Posterior fossa structures are unremarkable. CSF SPACES: Appropriate for age. No hydrocephalus. Basal cisterns are patent. CALVARIUM, SKULL BASE, PARANASAL SINUSES AND MASTOID AIR CELLS: Clear. No discrete lytic or blastic abnormalities. ORBITS: Both globes, extraocular muscles, optic nerves and retrobulbar fat appear unremarkable. Previous bilateral cataract surgery. CT/Brain/Head without Contrast IMPRESSION: No acute intracranial process. Electronically Signed: Nadeem Go MD at 11:06 EDT ,
--- NOTE | 2024-03-14 10:31 | CT_ITS ---
INDICATION: chest wall injury EXAMINATION: CT CHEST WITHOUT CONTRAST - CT Chest W/O Contrast Injection TECHNIQUE: Helically acquired images were obtained of the chest. The protocol utilizes one or more of the following dose reduction techniques: automated exposure control, adjustment of mA and/or kV according to patient size,and/or use of iterative reconstruction technique. IV Contrast dosage and agent: None. RADIATION DOSAGE (If Supplied By Facility): CTDIvol = ( 18.61 ) mGy, DLP = ( 772.24 ) mGycm COMPARISON: No relevant prior comparison study available FINDINGS: LUNGS, PLEURA AND LARGE AIRWAYS: Atelectasis or scarring in both lower lobes and lingula. No evidence of pulmonary contusion. No pleural effusion or thickening. No pneumothorax. THYROID: No thyroid lesions. HEART AND PERICARDIUM: Heart size is normal. No pericardial effusion. CORONARY ARTERIES: Coronary artery calcification is seen. VESSELS: Thoracic aorta is not dilated. MEDIASTINUM AND ANGELITO: No mediastinal or hilar adenopathy. Esophagus is unremarkable. No hiatal hernia. UPPER ABDOMEN: No acute pathology. BONES: No evidence of acute fracture. CT/Chest without Contrast IMPRESSION: 1. No evidence of pulmonary contusion, pneumothorax or pleural effusions. 2. Atelectatic changes or scarring in both lower lobes and lingular. 3. No evidence of acute fracture. Electronically Signed: Nadeem Go MD at 11:12 EDT ,
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
[2024-03-14 10:47] LABS: Absolute Lymphocyte Count 1.13 X10^3/uL (0.83-4.51); Absolute Neutrophil Count 3.5 X10^3/uL (2.0-7.7); Basophil# 0.04 X10^3/uL; Basophil% 0.7 % (0-1); Eosinophil# 0.19 X10^3/uL; Eosinophils% 3.4 % (0-5); Hematocrit 38.4 % (37-47); Hemoglobin 12.3 g/dL (12.0-15.0); Lymphocyte # 1.13 X10^3/ul (0.83-4.51); Lymphocyte % 20.3 % (19-41); Mean Corpuscular Hgb 30.1 pg (27.0-32.0); Mean Corpuscular Volume 93.9 fL (81-99); Mean Platelet Vol. 9.9 fl (6.2-12.0); Monocyte# 0.67 X10^3/uL; NRBC Flagged by Analyzer 0 % (0-5); Neutrophil # 3.51 X10^3/uL (2.7-7.7); Neutrophil % 63.1 % (47-70); Platelet Count 236 K/mm3 (150-450); RBC Distribution Width CV 13.2 % (11.6-14.6); RBC Distribution Width SD 45.3 fl (35.1-43.9); Red Blood Count 4.09 M/mm3 (4.2-5.4); White Blood Count 5.6 K/mm3 (4.4-11.0)
[2024-03-14 11:10] LABS: ALB/GLOB Ratio 1.2 RATIO (0.9-2.4); AST(SGOT) 28 U/L (15-37); Alanine Aminotransfer ALT/SGPT 31 U/L (13-56); Albumin, Serum 3.9 g/dL (3.2-5.0); Alkaline Phosphatase 44 U/L (45-117); Anion Gap 8 (5-15); BUN 25 mg/dL (7-18); Calcium,Total 9.3 mg/dL (8.5-10.1); Chloride 105 mmol/L (98-107); Creatinine, Serum 1.04 mg/dL (0.55-1.02); EST Glomerular Filtration Rate 55 mL/min (>60); Est Glom Filt Rate - Afr Amer 67 mL/min (>60); Estimated Creatinine Clearance 49.22 ml/min; Globulin 3.3 g/dL (2.2-4.2); Glucose 234 mg/dL (74-106); Potassium 3.9 mmol/L (3.5-5.1); Protein, Total 7.2 g/dL (6.4-8.2); Sodium Level 136 mmol/L (136-145); Troponin-I HS 5 pg/mL (3.0-54.0)
[2024-03-14 12:00] VITALS: BP 131/65; PULSE 69; RESP 15; TEMP 36.8; O2SAT 99
== END 2024-03-14 12:13 | disposition home or self-care (01) ==
PROVIDERS: Emergency Provider Emergency Medicine; PCP Family Medicine; Visit Provider Emergency Medicine
DX: H91.92 Unspecified hearing loss, left ear (principal); E11.9 Type 2 diabetes mellitus without complications; Z79.4 Long term (current) use of insulin; I25.10 Atherosclerotic heart disease of native coronary artery without angina pectoris; I10 Essential (primary) hypertension; E78.00 Pure hypercholesterolemia, unspecified; S20.20XA Contusion of thorax, unspecified, initial encounter; Z79.02 Long term (current) use of antithrombotics/antiplatelets; G47.30 Sleep apnea, unspecified; Z99.89 Dependence on other enabling machines and devices; V49.40XA Driver injured in collision with unspecified motor vehicles in traffic accident, initial encounter; W22.10XA Striking against or struck by unspecified automobile airbag, initial encounter; I25.2 Old myocardial infarction; Z79.899 Other long term (current) drug therapy; K21.9 Gastro-esophageal reflux disease without esophagitis; E03.9 Hypothyroidism, unspecified; Z79.84 Long term (current) use of oral hypoglycemic drugs; Z96.659 Presence of unspecified artificial knee joint; Z95.5 Presence of coronary angioplasty implant and graft; T70.0XXA Otitic barotrauma, initial encounter
CPT/HCPCS: 70450; 71250; 80053; 84484; 85025; 93005; 99283; A4216

== ENCOUNTER → 2024-05-23 | Outpatient (CLI) | payer MEDICARE, OTHER, SELFPAY ==
--- NOTE | 2024-05-23 09:08 | US_ITS ---
STUDY: ABDOMINAL ULTRASOUND - RIGHT UPPER QUADRANT; ELASTOGRAPHY REASON FOR VISIT: Female, 73 years old. NAFLD. TECHNIQUE: Ultrasound evaluation of the right upper quadrant was performed with real-time and static zacarias-scale imaging. Point quantification shear wave elastography was performed ([place]). TECHNICAL QUALITY: Adequate. COMPARISON: Comparison is made with prior study dated March 05, 2023. FINDINGS: Liver: The liver measures 18.2 cm. There is increased echogenicity consistent with fatty infiltration. Focal fatty sparing is seen adjacent to the gallbladder lumen. The bile ducts are within normal limits. There is hepatic color flow. The direction of portal flow is hepatopetal. There is no demonstrated mass lesion. Median liver stiffness measured 7.8 kPa. Gallbladder: Normal distended gallbladder. The gallbladder wall measures 2.3 mm. There is a negative sonographic Thibodeaux''s sign. There is no pericholecystic fluid. There are no gallstones. Common Bile Duct (C.B.D.): The common bile duct measures 5.2 mm. Pancreas: There is normal echogenicity of the visualized pancreas. There is no demonstrated pancreatic mass or cyst. Right Kidney: Normal size of the right kidney. The right kidney measures 11.6 cm x 5.2 cm x 4.6 cm. Normal renal cortex. The right cortex measures 1.0 cm. There is no demonstrated renal mass or cyst. There is no right hydronephrosis. US/ABD Limited w/ Elastography IMPRESSION: 1. Liver stiffness measures 7.8 kPa compatible with F2-F3 (Mild to moderate liver fibrosis) Metavir score. 2. Fatty infiltration of the liver. Findings suggestive of focal fatty sparing adjacent to the gallbladder. Electronically Signed: Zachary Taylor MD at 11:12 EDT ,
--- OUTSIDE RECORDS SUMMARY | 2024-05-23 09:34 | XMS RPT_ITS | CCD ---
Author Organization [facility] Care Team Providers Care Hot Sealing Machine Operator Name Role Phone Tameka LERMA, Lachelle Amezcua Unavailable Unavailable Pat THREAD PULLER, Martha Loya Unavailable Holly Tan Unavailable FLORENTIN Cherry, Elissa Dee Unavailable Unavailabl e Richmond Laird Unavailable Unavailable LUZ MARINA Fair, Ghazala Dee Unavailable [phone] JUDE LEACH Attending Unavailable GALINA TAVAREZ Primary Care Unavailable Holly Tan Unavailable Galina Tavarez DO Primary Care Provider Raymundo Nichole Unavailable Christina Fischer MD Unavailable Christina Fischer MD Unavailable Mercy PT, Kelli Unavailable Allergies Allergy Classification Reported Allergen(s) Allergy Type Date of Onset Reaction(s) Facility (7 sources) codeine drug allergy 1 [facility] Work Phone: [phone] (7 sources) esomeprazole drug allergy 1 causes elevated LFTs vicod [facility] Work Phone: [phone] (7 sources) iodine drug allergy 1 [facility] Work Phone: [phone] (7 sources) levoFLOXacin drug allergy 1 Nausea [facility] Work Phone: [phone] (8 sources) niacin drug allergy 8 Intolerance [facility] Work Phone: (7 sources) Sulfonamides (Antibiotic) drug allergy 1 Causes elevated Lfts vicod [facility] Work Phone: (1 source) Acetaminophen / HYDROcodone Drug Allergy 7 Itching [facility] (1 source) levoFLOXacin Drug Allergy 7 Intolerance [facility] Work Phone: (1 source) Sulfonamides (Antibiotic) Propensity to adverse reactions 9 [facility] (1 source) cat scan dye [Other] Propensity to adverse reactions 6 Intolerance [facility] Medications Current Medications Medication Drug Class(es) Dates Sig (Normalized) Sig (Original) allopurinol 100 mg oral tablet (1 source) Xanthine Oxidase Inhibitor take 1 tablet by mouth once daily allopurinol (ZYLOPRIM) 100 mg tablet Take 100 mg by mouth once daily. Active amLODIPine 5 mg oral tablet (1 source) Dihydropyridine Calcium Channel Te take 1 tablet by mouth once daily amLODIPine (NORVASC) 5 mg tablet Take 5 mg by mouth once daily. Active ascorbic acid 500 mg oral tablet (1 source) Vitamin C Start: 03-10-2021 ascorbic acid, vitamin C, (VITAMIN C) 500 mg tablet [The details of the medication are not available because there are pending changes by a home health clinician.] 27 tablet 03/10/2021 Active aspirin 81 mg delayed release oral tablet (20 sources) Nonsteroidal Anti-inflammatory Drug Start: 03-16-2021 take 1 tablet by mouth once daily aspirin, enteric coated (ASPIRIN LOW DOSE) 81 mg EC tablet Take 81 mg by mouth once daily. 03/16/2021 Active Start: 03-06-2017 take 1 tablet by keny th once daily ASPIR-81 81 MG TBEC One tablet by mouth daily ASPIRIN [id number] Martha Stewart THREAD PULLER Start: 03-06-2017 take 1 tablet by keny th once daily ASPIR-81 81 MG TBEC One tablet by mouth daily ASPIRIN [id number] Martha S Pat THREAD PULLER Start: 03-06-2013 take 1 tablet by keny th once daily ASPIRIN 81 MG TABS One tablet by mouth daily ASPIRIN [id number] Galina Tavarez DO Start: 05-30-2012 take 1 tablet by keny th once daily ECOTRIN 325 MG TBEC One tablet by mouth daily ASPIRIN [id number] Aj Schilling MD Start: 05-30-2012 take 1 tablet by keny th once daily ECOTRIN 325 MG TBEC One tablet by mouth daily ASPIRIN [id number] Aj Schilling MD Start: 07-31-2007 take 1 tablet by keny th once daily ASPIRIN 81 MG TABS One tablet by mouth daily ASPIRIN [id number] Sekou Hebert MD Start: 07-31-2007 End: 03-06-2017 take 1 tablet by mouth once daily ASPIRIN EC 81 MG TBEC One tablet by mouth daily ASPIRIN [id number] Sekou Hebert MD CALCIUM-MAGNESIUM ORAL (1 source) CALCIUM-MAGNESIU M ORAL Take by mouth once daily. Aissatou/mag 2000 mg/600 mg Active colestipol hydrochloride 1000 mg oral tablet (1 source) Bile Acid Sequestrant take 1 tablet by mouth twice daily colestipol (COLESTID) 1 gram tablet Take 1 g by mouth twice daily. Active famotidine 20 mg oral tablet (1 source) Histamine-2 Receptor Antagonist Start: 2020 take 1 tablet by mouth once daily at bedtime famotidine (PEPCID) 20 mg tablet Take 20 mg by mouth daily at bedtime. 03/16/2021 Active gabapentin 300 mg oral capsule (1 source) Anti-epileptic Agent take 1 capsule by mouth twice daily gabapentin (NEURONTIN) 300 mg capsule Take 300 mg by mouth twice daily. Active glipiZIDE 2.5 mg / metFORMIN hydrochloride 250 mg oral tablet (1 source) Biguanide, Sulfonylurea take 1 tablet by mouth twice daily before mealtime glipiZIDE-metFORMIN (METAGLIP) 2.5-250 mg tablet Take 1 tablet by mouth twice daily before meals. Active Methenamine (1 source) take 1 g by mouth twice daily METHENAMINE HIPPURATE ORAL Take 1 g by mouth twice daily. Active naloxone hydrochloride 40 mg/ml nasal spray (1 source) Opioid Antagonist Start: 2020 naloxone 4 mg/actuation nasal spray (NARCAN) Use 1 spray in one nostril as needed for overdose. May repeat every 2 to 3 minutes in alternating nostrils until medical assistance is available 2 Each 03/10/2021 Active Completed/Discontinued Medications Medication Drug Class(es) Dates Sig (Normalized) Sig (Original) TEST STRIPS (2 sources) Start: 09-23-2015 TEST STRIPS use once daily as directed to check sugars DX E11.9 Galina Tavarez DO acetaminophen 325 mg / butalbital 50 mg / caffeine 40 mg oral tablet (20 sources) Barbiturate, Central Nervous System Stimulant, Methylxanthine Start: 06-29-2015 End: 07-12-2015 take 1 tablet by mouth every eight hours as needed for headache MIRNXADKWP-HEGO-I AFFEINE 50-325-40 MG TABS 1 po every 8 hours as needed for headaches WWMXYLLLTF-IRDY-Z AFFEINE [id number] Galina Tavarez, DO azithromycin 250 mg oral tablet (14 sources) Macrolide Antimicrobial Start: 05-04-2015 End: 06-10-2015 take 2 tablets by mouth once daily, then take 1 tablet by mouth once daily, then take 2-5 tablets by mouth AZITHROMYCIN 250 MG TABS 2 po daily on day 1 then 1 po daily on days 2-5 AZITHROMYCIN [id number] Galina Tavarez DO CALCIUM/MAGNESIUM 2000MG (4 sources) Start: 03-06-2017 take 1 tablet by mouth once daily CALCIUM/MAGNESIUM 2000MG One tablet by mouth daily CALCIUM/MAGNESIUM 2000MG Martha Stewart THREAD PULLER Start: 03-06-2017 take 1 tablet by keny once daily CALCIUM/MAGNESIUM 2000MG One tablet by mouth daily CALCIUM/MAGNESIUM 2000MG Martha Stewart THREAD PULLER cholecalciferol 2000 unt oral tablet (20 sources) Vitamin D Start: 05-27-2014 take 1 tablet by mouth twice daily VITAMIN D 2000 UNIT TABS One tablet by mouth twice daily CHOLECALCIFEROL [id number] Sekou Hebert MD Start: 05-27-2014 End: 03-06-2017 take 1 tablet by mouth once daily VITAMIN D 2000 UNIT TABS One tablet by mouth once daily CHOLECALCIFEROL [id number] Galina Tavarez, DO clopidogrel 75 mg oral tablet (15 sources) P2Y12 Platelet Inhibitor Start: 11-18-2009 End: 05-30-2012 take 1 tablet by mouth once daily PLAVIX 75 MG TABS One tablet by mouth daily CLOPIDOGREL BISULFATE [id number] Aj Schilling MD ergocalciferol 2000 unt oral tablet (4 sources) Provitamin D2 Compound Start: 03-06-2017 take 1 tablet by mouth once daily VITAMIN D2 2000 UNIT TABS One tablet by mouth daily ERGOCALCIFEROL [id number] Martha S Pat THREAD PULLER estradiol 0.1 mg/ml vaginal cream (16 sources) Estrogen Start: 03-06-2017 ESTRACE 0.1 MG/GM CREA use as directed 2 nights per week ESTRADIOL [id number] Martha S [place] THREAD PULLER Start: 03-06-2017 ESTRACE 0.1 MG /GM CREA use as directed 2 nights per week ESTRADIOL [id number] Martha S Pat THREAD PULLER Start: 12-13-2015 estradiol (EST RACE) 0.01 % (0.1 mg/gram) vaginal cream Indications: Postmenopausal atrophic vaginitis Use small amount at vaginal opening 1-2 times per week. 1 Tube 1 12/13/2015 Active Start: 09-03-2014 End: 03-06-2017 ESTRACE CREA apply vaginally as needed ESTRADIOL CREA [id number] Martha S Pat THREAD PULLER Start: 09-03-2014 ESTRACE CREA a pply vaginally as needed ESTRADIOL CREA [id number] Galina Goldie Tavarez, DO Start: 09-03-2014 End: 03-06-2017 ESTRACE CREA apply vaginally as needed ESTRADIOL CREA [id number] Martha S Pat THREAD PULLER Start: 09-03-2014 ESTRACE CREA a pply vaginally as needed ESTRADIOL CREA [id number] Galina Tavarez, DO ezetimibe 10 mg oral tablet (14 sources) Dietary Cholesterol Absorption Inhibitor Start: 11-01-2009 End: 11-30-2011 take 1 tablet by mouth once daily ZETIA 10 MG TABS One tablet by mouth daily EZETIMIBE [id number] Aj Schilling MD fish oil (20 sources) Start: 03-06-2017 take 1 tablet by mouth once daily [facility] FISH OIL 1000 MG CAPS One tablet by mouth daily OMEGA-3 FATTY ACIDS [id number] Martha S Pat THREAD PULLER Start: 03-06-2017 take 1 tablet by keny th once daily [facility] FISH OIL 1000 MG CAPS One tablet by mouth daily OMEGA-3 FATTY ACIDS [id number] Martha S [place] THREAD PULLER Start: 03-07-2011 End: 03-06-2017 take 3 tablets by mouth once daily FISH OIL CAPS Three tablets by mouth daily OMEGA-3 FATTY ACIDS CAPS [id number] Martha S Pat THREAD PULLER Start: 03-07-2011 take 3 tablets by mo [facility] once daily FISH OIL CAPS Three tablets by mouth daily OMEGA-3 FATTY ACIDS CAPS [id number] Sekou Hebert MD Start: 03-07-2011 take 1 tablet by keny once daily FISH OIL CAPS One tablet by mouth daily OMEGA-3 FATTY ACIDS CAPS [id number] Shruthi Dias Start: 03-07-2011 End: 03-06-2017 take 3 tablets by mouth once daily FISH OIL CAPS Three tablets by mouth daily OMEGA-3 FATTY ACIDS CAPS [id number] Martha S [place] THREAD PULLER Start: 03-07-2011 take 3 tablets by mo [facility] once daily FISH OIL CAPS Three tablets by mouth daily OMEGA-3 FATTY ACIDS CAPS [id number] Sekou Hebert MD Start: 03-07-2011 take 1 tablet by keny once daily FISH OIL CAPS One tablet by mouth daily OMEGA-3 FATTY ACIDS CAPS [id number] Shruthi Dias fluconazole 200 mg oral tablet (14 sources) Azole Antifungal Start: 03-23-2015 End: 05-04-2015 take 1 tablet by mouth every week DIFLUCAN 200 MG TABS 1 po weekly x 2 weeks FLUCONAZOLE [id number] Galina Veravenkat, DO GLUCOMETER (7 sources) Start: 09-23-2015 GLUCOMETER use daily as directed DX E11.9 GLUCOMETER Galina A Chuyvenkat, DO Start: 09-23-2015 GLUCOMETER use daily as directed DX E11.9 GLUCOMETER Galina A Chuyvenkat, DO GLUCOSE BLOOD (4 sources) Start: 10-26-2015 ONETOUCH ULTRA BLUE STRP use to check sugars daily as directed DX 11.9 GLUCOSE BLOOD [id number] Torres A Izzy DO Start: 10-26-2015 ONETOUCH ULTRA BLUE STRP use to check sugars daily as directed DX 11.9 GLUCOSE BLOOD [id number] Torres A Izzy DO GLUCOSE BLOOD (2 sources) Start: 10-26-2015 ONETOUCH ULTRA BLUE STRP use to check sugars daily as directed DX 11.9 GLUCOSE BLOOD [id number] Torres A Izzy DO GLUCOSE BLOOD (1 source) Start: 10-26-2015 ONETOUCH ULTRA BLUE STRP use to check sugars daily as directed DX 11.9 GLUCOSE BLOOD [id number] Torres A Izzy DO 200 actuat ipratropium bromide 0.017 mg/actuat metered dose inhaler (20 sources) Anticholinergic Start: 03-06-2017 ATROVENT HFA 1 7 MCG/ACT AERS use as directed IPRATROPIUM BROMIDE HFA [id number] Martha S [place] THREAD PULLER Start: 03-06-2017 ATROVENT HFA 1 7 MCG/ACT AERS use as directed IPRATROPIUM BROMIDE HFA [id number] Martha S Pat THREAD PULLER Start: 03-06-2017 ATROVENT HFA 1 7 MCG/ACT AERS use as directed IPRATROPIUM BROMIDE HFA [id number] Martha S Pat THREAD PULLER Start: 03-23-2015 End: 03-06-2017 take 2 spray(s) nasal route once daily ATROVENT 0.06 % SOLN 2 sprays each nostril once daily IPRATROPIUM BROMIDE [id number] Martha S Pat THREAD PULLER Start: 03-23-2015 take 2 spray(s) nasa l route once daily ATROVENT 0.06 % SOLN 2 sprays each nostril once daily IPRATROPIUM BROMIDE [id number] Galina Tavarez DO Start: 03-23-2015 End: 03-06-2017 take 2 spray(s) nasal route once daily ATROVENT 0.06 % SOLN 2 sprays each nostril once daily IPRATROPIUM BROMIDE [id number] Martha S [place] THREAD PULLER Start: 03-23-2015 take 2 spray(s) nasa l route once daily ATROVENT 0.06 % SOLN 2 sprays each nostril once daily IPRATROPIUM BROMIDE [id number] Galina Tavarez DO Start: 03-23-2015 End: 03-06-2017 take 2 spray(s) nasal route once daily ATROVENT 0.06 % NASAL SOLN 2 sprays each nostril once daily IPRATROPIUM BROMIDE [id number] Martha S Pat THREAD PULLER Start: 03-23-2015 take 2 spray(s) nasa l route once daily ATROVENT 0.06 % NASAL SOLN 2 sprays each nostril once daily IPRATROPIUM BROMIDE [id number] Galina Tavarez DO Start: 03-23-2015 take 2 spray(s) nasa l route once daily ATROVENT 0.06 % NASAL SOLN 2 sprays each nostril once daily IPRATROPIUM BROMIDE [id number] Galina Tavarez DO Start: 05-27-2014 End: 06-15-2015 take 2 spray(s) nasal route twice daily as needed ATROVENT 0.03 % SOLN Two sprays in each nostril twice a day as needed for allegies IPRATROPIUM BROMIDE [id number] Galina Tavarez DO Start: 05-27-2014 take 2 spray(s) nasa l route twice daily as needed ATROVENT 0.03 % SOLN Two sprays in each nostril twice a day as needed for allegies IPRATROPIUM BROMIDE [id number] Galina Tavarez DO Start: 05-27-2014 IPRATROPIUM BR OMIDE 0.03 % SOLN Nasal spray as directed IPRATROPIUM BROMIDE [id number] Sekou Hebert MD Start: 05-27-2014 End: 06-15-2015 take 2 spray(s) nasal route twice daily as needed ATROVENT 0.03 % SOLN Two sprays in each nostril twice a day as needed for allegies IPRATROPIUM BROMIDE [id number] Galina Goldie Tavarez DO Start: 05-27-2014 take 2 spray(s) nasa l route twice daily as needed ATROVENT 0.03 % SOLN Two sprays in each nostril twice a day as needed for allegies IPRATROPIUM BROMIDE [id number] Galina Goldie Tavarez DO Start: 05-27-2014 End: 06-15-2015 take 2 spray(s) nasal route twice daily as needed ATROVENT 0.03 % NASAL SOLN Two sprays in each nostril twice a day as needed for allegies IPRATROPIUM BROMIDE [id number] Galina A DO [place] Start: 05-27-2014 take 2 spray(s) nasa l route twice daily as needed ATROVENT 0.03 % NASAL SOLN Two sprays in each nostril twice a day as needed for allegies IPRATROPIUM BROMIDE [id number] Galina Tavarez DO Start: 05-27-2014 End: 06-15-2015 take 2 spray(s) nasal route twice daily as needed ATROVENT 0.03 % NASAL SOLN Two sprays in each nostril twice a day as needed for allegies IPRATROPIUM BROMIDE [id number] Galina A DO [place] ISOSORBIDE MONONITRATE (15 sources) Start: 05-30-2012 take 1 tablet by mouth once daily IMDUR 30 MG [id number] One half tablet by mouth daily ISOSORBIDE MONONITRATE [id number] Aj Schilling MD Start: 05-30-2012 End: 09-03-2012 take 1 tablet by mouth once daily IMDUR 30 MG [id number] One half tablet by mouth daily ISOSORBIDE MONONITRATE [id number] Aj Schilling MD Start: 05-30-2012 take 1 tablet by keny th once daily IMDUR 30 MG [id number] One half tablet by mouth daily ISOSORBIDE MONONITRATE [id number] Aj Schilling MD Start: 05-30-2012 End: 09-03-2012 take 1 tablet by mouth once daily IMDUR 30 MG [id number] One half tablet by mouth daily ISOSORBIDE MONONITRATE [id number] Aj Schilling MD take 1 tablet by keny th once daily, then take 1 tablet by mouth every twenty-four hours isosorbide mononitrate ER (IMDUR) 30 mg 24 hr tablet Take 30 mg by mouth once daily. Active ketotifen 0.25 mg/ml ophthalmic solution (14 sources) Histamine-1 Receptor Inhibitor Start: 09-03-2014 End: 06-10-2015 ALAWAY 0.025 % SOLN One drop in each eye twice daily for dry eyes KETOTIFEN FUMARATE [id number] Galina Tavarez DO Start: 09-03-2014 ALAWAY 0.025 % SOLN One drop in each eye twice daily for dry eyes KETOTIFEN FUMARATE [id number] Galina Tavarez DO Start: 09-03-2014 End: 06-10-2015 ALAWAY 0.025 % SOLN One drop in each eye twice daily for dry eyes KETOTIFEN FUMARATE [id number] Galina Tavarez DO Start: 09-03-2014 ALAWAY 0.025 % SOLN One drop in each eye twice daily for dry eyes KETOTIFEN FUMARATE [id number] Galina Tavarez DO Start: 09-03-2014 End: 06-10-2015 ALAWAY 0.025 % SOLN One drop in each eye twice daily for dry eyes KETOTIFEN FUMARATE [id number] Galina Tavarez DO LANCETS (6 sources) Start: 09-23-2015 LANCETS use on ce daily as directed to check blood sugars DX E11.9 LANCSHALONDA Tavarez DO Start: 09-23-2015 LANCETS use on ce daily as directed to check blood sugars DX E11.9 LANCETS Galina Tavarez DO meloxicam 7.5 mg oral tablet (20 sources) Nonsteroidal Anti-inflammatory Drug Start: 08-08-2007 take 1 tablet by mouth once daily MOBIC 7.5 MG TABS One tablet by mouth daily MELOXICAM [id number] Shruthi Leila Larissa Start: 08-08-2007 take 1 tablet by keny th twice daily for arthritis MOBIC 7.5 MG TABS One tablet by mouth twice daily for arthritis MELOXICAM [id number] Galina Tavarez DO 24 hr metFORMIN hydrochloride 500 mg extended release oral tablet (16 sources) Biguanide Start: 09-23-2015 End: 03-06-2017 take 1 tablet by mouth once daily METFORMIN HCL ER 500 MG [id number] One tablet by mouth daily METFORMIN HCL [id number] Martha Stewart THREAD PULLER Start: 09-23-2015 take 1 tablet by keny th once daily in the morning GLUCOPHAGE XR 500 MG [id number] 1 po daily in AM METFORMIN HCL [id number] Galina Tavarez DO Start: 09-23-2015 End: 03-06-2017 take 1 tablet by mouth once daily in the morning GLUCOPHAGE XR 500 MG [id number] 1 po daily in AM METFORMIN HCL [id number] Martha Stewart THREAD PULLER Start: 09-23-2015 End: 03-06-2017 take 1 tablet by mouth once daily in the morning GLUCOPHAGE XR 500 MG [id number] 1 po daily in AM METFORMIN HCL [id number] Martha Stewart THREAD PULLER Start: 09-23-2015 take 1 tablet by keny th once daily in the morning GLUCOPHAGE XR 500 MG [id number] 1 po daily in AM METFORMIN HCL [id number] Galina Tavarez DO metFORMIN (GLUCO PHAGE) 1,000 mg tablet Take 500 mg by mouth twice daily. Active metoprolol tartrate 100 mg oral tablet (20 sources) beta-Adrenergic Te Start: 06-07-2012 End: 03-06-2017 take 1 tablet by mouth twice daily LOPRESSOR 100 MG TABS One tablet by mouth twice daily METOPROLOL TARTRATE [id number] Sekou Hebert MD Start: 05-25-2009 take 1 tablet by keny th twice daily LOPRESSOR 50 MG TABS One tablet by mouth twice daily METOPROLOL TARTRATE [id number] Aj Schilling MD MULTIPLE MINERALS-VITAMINS (2 sources) Start: 05-27-2014 take 1 tablet by mouth once daily AISSATOU MAG ZINC +D3 TABS One tablet by mouth daily MULTIPLE MINERALS-VITAMINS [id number] Galina Tavarez DO Start: 05-27-2014 take 1 tablet by keny th once daily AISSATOU MAG ZINC +D3 TABS One tablet by mouth daily MULTIPLE MINERALS-VITAMINS [id number] Sekou Hebert MD nabumetone 750 mg oral tablet (15 sources) Nonsteroidal Anti-inflammatory Drug Start: 08-08-2007 End: 03-06-2017 take 1 tablet by mouth twice daily NABUMETONE 750 MG TABS One tablet by mouth twice daily NABUMETONE [id number] Martha Stewart NP nitrofurantoin, macrocrystals 25 mg / nitrofurantoin, monohydrate 75 mg oral capsule (12 sources) Start: 09-03-2014 End: 10-13-2014 take 1 tablet by mouth once daily MACROBID 100 MG CAPS One tablet by mouth daily for frequent UTI's. NITROFURANTOIN MONOHYD MACRO [id number] Galina Tavarez DO Start: 09-03-2014 End: 10-13-2014 take 1 tablet by mouth once daily MACROBID 100 MG CAPS One tablet by mouth daily for frequent UTI's. NITROFURANTOIN MONOHYD MACRO [id number] Galina Tavarez DO nitrofurantoin, macrocrystals 25 mg / nitrofurantoin, monohydrate 75 mg oral capsule (16 sources) Nitrofuran Antibacterial Start: 09-03-2014 End: 10-13-2014 take 1 tablet by mouth once daily MACROBID 100 MG CAPS One tablet by mouth daily for frequent UTI's. NITROFURANTOIN MONOHYD MACRO [id number] Galina Tavarez DO Start: 05-16-2010 End: 03-06-2013 take 1 tablet by mouth once daily NITROFURANTOIN MACROCRYSTAL 100 MG CAPS One tablet by mouth daily NITROFURANTOIN MACROCRYSTAL [id number] Shruthi Dias nitroglycerin 0.4 mg sublingual tablet (20 sources) Nitrate Vasodilator Start: 11-01-2009 End: 03-06-2017 NITROSTAT 0.4 MG SUBL 1 tablet under tongue every 5 min up to 3 times as needed NITROGLYCERIN [id number] Galina Tavarez DO omeprazole 40 mg delayed release oral capsule (20 sources) Proton Pump Inhibitor Start: 11-24-2014 End: 03-06-2017 take 1 tablet by mouth twice daily OMEPRAZOLE 40 MG CPDR One tablet by mouth twice daily OMEPRAZOLE [id number] Galina Tavarez DO Start: 11-24-2014 take 1 tablet by [facility] once daily OMEPRAZOLE 40 MG CPDR One tablet by mouth daily OMEPRAZOLE [id number] Galina Tavarez DO Start: 05-16-2010 End: 11-30-2011 take 1 tablet by mouth once daily OMEPRAZOLE 40 MG CPDR One tablet by mouth daily OMEPRAZOLE [id number] Martha Stewart NP predniSONE 20 mg oral tablet (20 sources) Start: 12-29-2015 End: 01-10-2016 PREDNISONE 20 MG TABS 2 tabs x 3 days, 1 tab x 3 days, 1/2 tab x 4 days PREDNISONE [id number] Torres Magana DO Start: 12-28-2014 End: 12-29-2015 take 3 tablets by mouth once daily PREDNISONE 20 MG TABS 3 po daily x 5 days PREDNISONE [id number] Galina Tavarez DO Start: 10-13-2014 End: 11-24-2014 take 1 tablet by mouth once daily PREDNISONE 50 MG TABS 1 po daily x 4 days PREDNISONE [id number] Galina Tavarez, DO Start: 05-30-2012 End: 09-03-2012 take 1 tablet by mouth every other day PREDNISONE 50 MG TABS 1 tablet by mouth 2 days prior to heart cath PREDNISONE [id number] Aj Schilling MD risedronate sodium 150 mg oral tablet (14 sources) Bisphosphonate Start: 05-16-2010 End: 11-30-2011 ACTONEL 150 MG TABS Once a month RISEDRONATE SODIUM [id number] Shruthi Dias rosuvastatin calcium 20 mg oral tablet (20 sources) HMG-CoA Reductase Inhibitor Start: 09-02-2013 take 1 tablet by mouth at bedtime CRESTOR 10 MG TABS One tablet by mouth at bedtime. ROSUVASTATIN CALCIUM [id number] Ghazala Fair PA-C Start: 08-27-2009 End: 03-06-2017 take 1 tablet by mouth once daily CRESTOR 20 MG TABS 1 tablets by mout daily ROSUVASTATIN CALCIUM [id number] Ari Ndiaye MD TEST STRIPS (10 sources) Start: 09-23-2015 TEST STRIPS us e once daily as directed to check sugars DX E11.9 Galina Tavarez DO Start: 09-23-2015 End: 10-26-2015 TEST STRIPS use once daily a s directed to check sugars DX E11.9 TEST STRIPS Galina Tavarez DO Start: 09-23-2015 TEST STRIPS us e once daily as directed to check sugars DX E11.9 Galina Tavarez DO Start: 09-23-2015 End: 10-26-2015 TEST STRIPS use once daily a s directed to check sugars DX E11.9 TEST STRIPS Galina Tavarez DO levothyroxine sodium 0.1 mg oral tablet (20 sources) l-Thyroxine Start: 03-06-2017 take 1 tablet by mouth once daily SYNTHROID 100 MCG TABS One tablet by mouth daily LEVOTHYROXINE SODIUM [id number] Martha S Pat THREAD PULLER Start: 03-06-2017 take 1 tablet by mouth once da jun SYNTHROID 100 MCG TABS One tablet by mouth daily LEVOTHYROXINE SODIUM [id number] Martha Shalini Pat THREAD PULLER Start: 05-11-2008 take 1 tablet by keny th once daily for thyroid dysfunction SYNTHROID 100 MCG TABS One tablet by mouth daily for thyroid in AM LEVOTHYROXINE SODIUM [id number] Torres Magana DO Start: 05-11-2008 take 1 tablet by mouth once da jun SYNTHROID 100 MCG TABS One tablet by mouth daily LEVOTHYROXINE SODIUM [id number] Shruthi Dias Start: 05-11-2008 take 1 tablet by keny th once daily for thyroid dysfunction SYNTHROID 100 MCG TABS One tablet by mouth daily for thyroid in AM LEVOTHYROXINE SODIUM [id number] Galina Tavarez DO Start: 05-11-2008 take 1 tablet by keny th once daily for thyroid dysfunction SYNTHROID 100 MCG TABS One tablet by mouth daily for thyroid LEVOTHYROXINE SODIUM [id number] Galina Goldie Tavarez, DO Start: 05-11-2008 End: 03-06-2017 take 1 tablet by mouth once daily for thyroid dysfunction SYNTHROID 100 MCG TABS One tablet by mouth daily for thyroid in AM LEVOTHYROXINE SODIUM [id number] Martha Shalini Pat THREAD PULLER Start: 05-11-2008 End: 03-06-2017 take 1 tablet by mouth once daily for thyroid dysfunction SYNTHROID 100 MCG TABS One tablet by mouth daily for thyroid in AM LEVOTHYROXINE SODIUM [id number] Martha Shalini Pat THREAD PULLER Start: 05-11-2008 take 1 tablet by keny th once daily for thyroid dysfunction SYNTHROID 100 MCG TABS One tablet by mouth daily for thyroid in AM LEVOTHYROXINE SODIUM [id number] Torres Magana Start: 05-11-2008 take 1 tablet by mouth once da jun SYNTHROID 100 MCG TABS One tablet by mouth daily LEVOTHYROXINE SODIUM [id number] Shruthi Dias Start: 05-11-2008 take 1 tablet by keny th once daily for thyroid dysfunction SYNTHROID 100 MCG TABS One tablet by mouth daily for thyroid LEVOTHYROXINE SODIUM [id number] Galina Tavarez DO Start: 05-11-2008 take 1 tablet by keny th once daily for thyroid dysfunction SYNTHROID 100 MCG TABS One tablet by mouth daily for thyroid in AM LEVOTHYROXINE SODIUM [id number] Galina Tavarez DO Start: 01-20-2008 End: 03-06-2017 take 1 tablet by mouth once daily SYNTHROID 100 MCG TA BS One tablet by mouth daily LEVOTHYROXINE SODIUM [id number] Martha Stewart NP topiramate 50 mg oral tablet (14 sources) Anti-epileptic Agent Start: 07-12-2015 End: 08-05-2015 take 1 tablet by mouth once daily at bedtime TOPAMAX 50 MG TABS 1 po daily at bedtime TOPIRAMATE [id number] Galina Tavarez DO triamcinolone acetonide 5 mg/ml topical cream (14 sources) Corticosteroid Start: 04-12-2015 End: 06-10-2015 TRIAMCINOLONE ACETONIDE 0.5 % CREA apply to affected area 1-2 times daily TRIAMCINOLONE ACETONIDE [id number] Galina Tavarez DO Start: 04-12-2015 End: 06-10-2015 TRIAMCINOLONE ACETONIDE 0.5 % CREA apply to affected area 1-2 times daily TRIAMCINOLONE ACETONIDE [id number] Galina Tavarez DO trimethoprim 100 mg oral tablet (14 sources) Dihydrofolate Reductase Inhibitor Antibacterial Start: 03-07-2011 End: 05-30-2012 take 1 tablet by mouth at bedtime TRIMETHOPRIM 100 MG TABS One tablet by mouth at bedtime TRIMETHOPRIM [id number] Aj Schilling MD zinc (16 sources) Copper Absorption Inhibitor Start: 05-27-2014 take 1 tablet by mouth once daily AISSATOU MAG ZINC +D3 TABS One tablet by mouth daily MULTIPLE MINERALS-VITAMINS [id number] Sekou Hebert MD Start: 05-27-2014 take 1 tablet by keny th once daily AISSATOU MAG ZINC +D3 TABS One tablet by mouth daily MULTIPLE MINERALS-VITAMINS [id number] Galina Tavarez DO Start: 05-27-2014 End: 03-06-2017 take 1 tablet by mouth once daily AISSATOU MAG ZINC +D3 TABS One tablet by mouth daily MULTIPLE MINERALS-VITAMINS [id number] Martha Stewart THREAD PULLER Start: 05-27-2014 End: 03-06-2017 take 1 tablet by mouth once daily AISSATOU MAG ZINC +D3 TABS One tablet by mouth daily MULTIPLE MINERALS-VITAMINS [id number] Martha Stewart THREAD PULLER Start: 05-27-2014 take 1 tablet by keny th once daily AISSATOU MAG ZINC +D3 TABS One tablet by mouth daily MULTIPLE MINERALS-VITAMINS [id number] Galina Tavarez DO Start: 05-27-2014 take 1 tablet by keny th once daily AISSATOU MAG ZINC +D3 TABS One tablet by mouth daily MULTIPLE MINERALS-VITAMINS [id number] Sekou Hebert MD 100 ML zoledronic acid 0.05 MG/ML Injection (14 sources) Bisphosphonate Start: 05-27-2014 RECLAST 5 MG/1 00ML SOLN IV anually for osteoporosis every other year ZOLEDRONIC ACID [id number] Sekou Hebert MD Start: 05-27-2014 End: 06-06-2016 RECLAST 5 MG/100ML SOLN IV a nually for osteoporosis every other year ZOLEDRONIC ACID [id number] Sekou Hebert MD Start: 05-27-2014 End: 06-06-2016 RECLAST 5 MG/100ML SOLN IV a nually for osteoporosis every other year ZOLEDRONIC ACID [id number] Sekou Hebert MD Start: 05-27-2014 End: 06-06-2016 RECLAST 5 MG/100ML SOLN IV a nually for osteoporosis every other year ZOLEDRONIC ACID [id number] Sekou Hebert MD Start: 05-27-2014 RECLAST 5 MG/1 00ML SOLN IV anually for osteoporosis every other year ZOLEDRONIC ACID [id number] Sekou Hebert MD Problems Active Problems Problem Classification Problem Date Documented Date Episodic/Chronic Cardiac dysrhythmias (9 sources) Ventricular premature beats; Translations: [Multiple premature ventricular complexes] Onset: 06-07-2012 06-07-2012 Chronic Coronary atherosclerosis and other heart disease (20 sources) Coronary arteriosclerosis in [place] artery; Translations: [Coronary arteriosclerosis] Onset: 11-30-2011 06-03-2015 Chronic Diabetes mellitus with complications (7 sources) Type II diabetes mellitus uncontrolled; Translations: [Type 2 diabetes mellitus with hyperglycemia] Onset: 09-24-2015 09-24-2015 Chronic Diabetes mellitus without complication (8 sources) Type 2 diabetes mellitus; Translations: [Type 2 diabetes mellitus without complications] Onset: 03-02-2016 03-02-2016 Chronic Disorders of lipid metabolism (8 sources) Hyperlipidemia; Translations: [Hypercholesterolemia] Onset: 10-06-2010 10-06-2010 Chronic Esophageal disorders (8 sources) Gastroesophageal reflux disease; Translations: [Gastro-esophageal reflux disease without esophagitis] Onset: 09-03-2014 10-03-2014 Chronic Essential hypertension (8 sources) Hypertensive disorder; Translations: [Essential (primary) hypertension] Onset: 06-03-2015 06-03-2015 Chronic Headache, including migraine (7 sources) Migraine; Translations: [Migraine, unspecified, not intractable, without status migrainosus] Onset: 09-03-2014 10-03-2014 Chronic Menopausal disorders (5 sources) Atrophic vaginitis; Translations: [Postmenopausal atrophic vaginitis] Onset: 01-10-2006 03-06-2017 Chronic Osteoarthritis (7 sources) Osteoarthritis; Translations: [...] Translations: [Obesity, unspecified] Onset: 10-13-2015 10-13-2015 Chronic Other nutritional; endocrine; and metabolic disorders (1 source) Obesity caused by energy imbalance; Translations: [Class 1 obesity due to excess calories with serious comorbidity and body mass index (BMI) of 34.0 to 34.9 in adult] Onset: 02-23-2021 02-23-2021 Chronic Residual codes; unclassified (1 source) Obstructive sleep apnea syndrome; Translations: [Obstructive sleep apnea (adult) (pediatric)] Onset: 02-23-2021 02-23-2021 Chronic Sprains and strains (1 source) Tendon rupture - hip; Translations: [Strain of muscle, fascia and tendon of right hip, initial encounter] 04-21-2021 Episodic Thyroid disorders (8 sources) Hypothyroidism; Translations: [Hypothyroidism, unspecified] Onset: 06-02-2013 09-03-2014 Chronic Unclassified (6 sources) Screening mammography [...] (3 sources) Long-term drug therapy; Translations: [Other prison (current) drug therapy] Onset: 10-06-2010 10-06-2010 Urinary tract infections (1 source) Chronic cystitis; Translations: [Other chronic cystitis without hematuria] Onset: 02-22-2006 02-07-2024 Chronic Past or Other Problems Problem Classification Problem Date Documented Da te Episodic/Chronic Conditions associated with dizziness or vertigo (7 sources) Dizziness; Translations: [Dizziness and giddiness] Onset: 07-12-2015 07-12-2015 Episodic Coronary atherosclerosis and other heart disease (14 sources) Coronary angioplasty status; Translations: [Presence of coronary angioplasty implant and graft] Onset: 10-06-2010 10-06-2010 Episodic Gastrointestinal hemorrhage (1 source) Hematochezia; Translations: [Melena] Onset: 05-11-2009 Resolved: 02-23-2021 02-23-2021 Episodic Headache, including migraine (14 sources) Headache; Translations: [Headache] Onset: 10-13-2014 07-12-2015 Episodic Malaise and fatigue (7 sources) Fatigue; Translations: [Other fatigue] Onset: 03-23-2015 03-23-2015 Episodic Mycoses (7 sources) Pityriasis versicolor; Translations: [Pityriasis versicolor] Onset: 03-23-2015 04-05-2015 Episodic Nonspecific chest pain (20 sources) Atypical chest pain; Translations: [Chest pain, unspecified] Onset: 10-06-2010 Resolved: 03-16-2016 03-02-2016 Episodic Other aftercare (4 sources) Other termite treater helper (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) drug therapy; Translations: [Other termite treater helper (current) drug therapy] Onset: 10-06-2010 10-06-2010 Episodic [...] cardiovascular examination] Onset: 05-27-2014 Resolved: 06-03-2015 06-03-2015 Urinary tract infections (1 source) Recurrent urinary tract infection; Translations: [Urinary tract infection, site not specified] Onset: 02-23-2021 02-23-2021 Episodic Results Test Name Value Interpretation Reference Range Facility [facility] 09-22-2021 CNOV Office Visit (RYLAN) KORIN HARPER ([id number]) 1950 F Date Time Provider Department 09/22/21 7:45 AM CHRISTINA FISHCER During your visit today, we recorded the following information about you: Christina Fischer MD 09/22/2021 8:10 AM Addendum Patient: Korin Harper : 1950 Date of Surgery: 03/09/21 Procedure(s): Right hip gluteus medius repair, open (18592), with primary repair fixation (28184) Walpole's gluteus stephen/ tensor fascia pierre transfer: Right hip/ thigh transplant/ transfer multiple thigh tendons (01411) Hip greater trochanteric bursectomy (92680) Application of rehabilitation brace under anesthesia [58620] HPI: Korin Harper is a 70 year old female who presents s/p Right open abductor repair. The pain has improved since surgery. The patient denies wound healing difficulty, fevers, or chills. Walking into clinic without assistive device. DVT prophylaxis/ Analgesic Medication: See medication list Review of Systems, Past Medical History, Past Surgical History, Family History, and Social History: Reviewed and charted into [facility]. Allergies: Cat Scan Dye [Other], Levaquin [Levofloxacin], Niacin, Sulfa (Sulfonamide Antibiotics), and Vicodin [Hydrocodone-Acetami nophen] Medications: Current Outpatient Medications: - glipiZIDE-metFORMIN (METAGLIP) [...] was pleased with the plan of care. Referring Provider: SELF [[id number]] Allergies As of Date: 09/22/2021 Noted Allergy Reaction cat scan dye [Other] 01/09/2006 5 - Intolerance Comments: passed out and numbness (IV) Patient ok if pre medicated LEVAQUIN (LEVOFLOXACIN) 01/31/2007 5 - Intolerance Comments: doesn't work NIACIN 02/17/2008 5 - Intolerance SULFA (SULFONAMIDE ANTIBIOTICS) 01/21/2009 Comments: yeast infection VICODIN (HYDROCODONE-ACETAMI NOPHE*01/31/2007 9 - Itching Date Reviewed: 09/22/2021 Reviewed by: Angelica Franklin - Fully Assessed Reason for Visit: Follow Up [171] Cmt: Right Hip Primary Visit Diagnosis:Tear of right gluteus medius tendon, subsequent encounter [S76.011D] Order(s):CONSULT TO PHYSICAL THERAPY [9082] Order #: [id number]: 1 FUTURE Prescriptions as of 09/22/2021 - glipiZIDE-metFORMIN (METAGLIP) 2.5-250 mg tablet Take 1 tablet by mouth twice daily before meals. - aspirin, enteric coated (ASPIRIN LOW DOSE) 81 mg EC tablet Take 81 mg by mouth once daily. - famotidine (PEPCID) 20 mg tablet Take 20 mg by mouth daily at bedtime. - naloxone 4 mg/actuation nasal spray (NARCAN) Use 1 spray in one nostril as needed for overdose. May repeat every 2 to 3 minutes in alternating nostrils until medical assistance is available - ascorbic acid, vitamin C, (VITAMIN C) 500 mg tablet Take 1 tablet by mouth twice daily with meals for 27 doses. - metFORMIN (GLUCOPHAGE) 1,000 mg tablet Take 500 mg by mouth twice daily. - amLODIPine (NORVASC) 5 mg tablet Take 5 mg by mouth once daily. - gabapentin (NEURONTIN) 300 mg capsule Take 300 mg by mouth twice daily. - nabumetone (RELAFEN) 750 mg tablet Take 750 mg by mouth twice daily. - omeprazol (more content not included)... Normal [facility] XR HIP 3V PELV+ AP/LAT RTon 09-19-2021 XR HIP 3V PELV+ AP/LAT RT * * *Final Report* * * DATE OF EXAM: Sep 19 2021 3:03PM WRX 5352 - XR HIP 3V PELV+ AP/LAT RT / PROCEDURE REASON: Tear of right gluteus medius tendon, subsequent encounter * * * * Physician Interpretation * * * * HISTORY: had gluteus tendon surg last Feb. still cannot walk without can, is not having pain. no inj. Tear of right gluteus medius tendon, subsequent encounter . TECHNIQUE: XR HIP 3V PELV+ AP/LAT RT Laterality: RIGHT Number of different views (projections): 3 COMPARISON: March 2021 RESULT: Right hip is unchanged since the prior study. No joint space narrowing. No fracture. Postsurgical changes of the greater trochanter again noted. Bony pelvis is intact. There is narrowing of the superomedial aspect of the left hip unchanged. Benign bilateral soft tissue calcification of the buttock. IMPRESSION: No progressive bone or articular disease in the right hip. Deputy Attorney General: [employer] Transcribe Date/Time: Sep 20 2021 8:13A Dictated by : MIKAL NEFF MD This examination was interpreted and the report reviewed and electronically signed by: MIKAL NEFF MD on Sep 20 2021 8:14AM EST [id number] [facility] (ORTHMN) KORIN HARPER ([id number]) 1950 F Date Time Provider Department 04/22/21 CHRISTINA FISCHER During your visit today, we recorded the following information about you: Lien Galaviz ADM 04/22/2021 10:07 AM Signed Patient called to see how long does she have to continue to wear her brace. The patient stated that she was instructed to take it off at night, however she wants to know to what extent should she continue wearing the brace? What is the ideal date that she will discontinue using the brace. The patient is requesting a return call from a nurse. The patient can be reached at: [phone] Please advise and Thank you, Regards, Lien Galaviz Ext. [phone] Galina Huitron, MEDICAL SERVICES COORDINATOR 04/22/2021 2:01 PM Signed Let pt know brace can come off completely at 4 weeks from now. She was happy to hear Allergies As of Date: 04/22/2021 Noted Allergy Reaction cat scan dye [Other] 01/09/2006 5 - Intolerance Comments: passed out and numbness (IV) Patient ok if pre medicated LEVAQUIN (LEVOFLOXACIN) 01/31/2007 5 - Intolerance Comments: doesn't work NIACIN 02/17/2008 5 - Intolerance SULFA (SULFONAMIDE ANTIBIOTICS) 01/21/2009 Comments: yeast infection VICODIN (HYDROCODONE-ACETAMI NOPHE*01/31/2007 9 - Itching Date Reviewed: 04/21/2021 Reviewed by: Rubia Abad Ma - Fully Assessed Reason for Visit: Returning Patient's Call [408] Prescriptions as of 04/22/2021 - glipiZIDE-metFORMIN (METAGLIP) 2.5-250 mg tablet Take 1 tablet by mouth twice daily before meals. - aspirin, enteric coated (ASPIRIN LOW DOSE) 81 mg EC tablet Take 81 mg by mouth once daily. - famotidine (PEPCID) 20 mg tablet Take 20 mg by mouth daily at bedtime. - naloxone 4 mg/actuation nasal spray (NARCAN) Use 1 spray in one nostril as needed for overdose. May repeat every 2 to 3 minutes in alternating nostrils until medical assistance is available - ascorbic acid, vitamin C, (VITAMIN C) 500 mg tablet Take 1 tablet by mouth twice daily with meals for 27 doses. - metFORMIN (GLUCOPHAGE) 1,000 mg tablet Take 500 mg by mouth twice daily. - amLODIPine (NORVASC) 5 mg tablet Take 5 mg by mouth once daily. - gabapentin (NEURONTIN) 300 mg capsule Take 300 mg by mouth twice daily. - nabumetone (RELAFEN) 750 mg tablet Take 750 mg by mouth twice daily. - omeprazole (PRILOSEC) 40 mg capsule Take 40 mg by mouth once daily. - METHENAMINE HIPPURATE ORAL Take 1 g by mouth twice daily. - CALCIUM-MAGNESIUM ORAL Take by mouth once daily. Aissatou/mag 2000 mg/600 mg - colestipol (COLESTID) 1 gram tablet Take 1 g by mouth twice daily. - clopidogrel (PLAVIX) 75 mg tablet Take 75 mg by mouth once daily. - isosorbide mononitrate ER (IMDUR) 30 mg 24 hr tablet Take 30 mg by mouth once daily. - allopurinol (ZYLOPRIM) 100 mg tablet Take 100 mg by mouth once daily. - estradiol (ESTRACE) 0.01 % (0.1 mg/gram) vaginal cream Use small amount at vaginal opening 1-2 times per week. - rosuvastatin calcium(CRESTOR 20 MG TAB) - metoprolol tartrate(LOPRESSOR 50 MG TAB) Take two(2)tablet twice daily. - levothyroxine sodium(SYNTHROID 100 MCG TAB) Take one(1) tablet daily. Meds Comments as of 03/16/2021: clopidogrel + nabumetone shows severe interaction 03/16/21. clopidogrel + omeprazole shows severe interaction 03/16/21 Problem List As Of Date 04/22/2021 Noted Resolved ATROPHIC VAGINITIS [N95.2] 01/10/2006 CHRONIC CYSTITIS NEC [N30.20] 02/22/2006 Blood in stool [K92.1] 05/11/2009 02/23/2021 Hypercholesteremia [E78.00] 06/02/2013 PVC (premature ventricular contraction) [I49.3] 06/02/2013 Hypothyroid [E03.9] 06/02/2013 Arteriosclerosis of coronary artery [I25.10] 11/30/2011 Gastroesophageal reflux disease [K21.9] 09/03/2014 Hypertension [I10] 06/03/2015 Type 2 diabetes mellitus (HCC) [E11.9] 03/02/2016 Ventricular premature beats [I49.3] 06/07/2012 TOYIN (obstructive sleep apnea) [G47.33] 02/23/2021 Frequent UTI [N39.0] 02/23/2021 Class 1 obesity due to excess calories with ser*02/23/2021 Encounter Status:Closed by GALINA HUITRON on 04/22/21 [facility] CNOVon 04-21-2021 CNOV Office Visit (ORTHIN) KORIN HARPER ([id number]) 1950 F Date Time Provider Department 04/21/21 10:30 AM CHRISTINA FISCHER During your visit today, we recorded the following information about you: Weight Height 83.9 kg 1.549 m Christina Fischer MD 04/21/2021 10:12 AM Signed Post-Op Visit Patient: Korin Harper : 1950 Date of Surgery: 03/09/2021 Procedure(s): Right hip gluteus medius repair, open (00886), with primary repair fixation (03311) Walpole's gluteus stephen/ tensor fascia pierre transfer: Right hip/ thigh transplant/ transfer multiple thigh tendons (37345) Hip greater trochanteric bursectomy (25254) Application of rehabilitation brace under anesthesia [69660] HPI: Korin Harper is a 70 year old female who presents s/p Right open abductor repair. The pain has improved since surgery. The patient denies wound healing difficulty, fevers, or chills. DVT prophylaxis/ Analgesic Medication: See medication list Review of Systems, Past Medical History, Past Surgical History, Family History, and Social History: Reviewed and charted into [facility]. Allergies: Cat Scan Dye [Other], Levaquin [Levofloxacin], Niacin, Sulfa (Sulfonamide Antibiotics), and Vicodin [Hydrocodone-Acetami nophen] Medications: Current Outpatient Medications: - glipiZIDE-metFORMIN (METAGLIP) [...] was pleased with the plan of care. Referring Provider: CHRISTINA FISCHER [[id number]] Allergies As of Date: 04/21/2021 Noted Allergy Reaction cat scan dye [Other] 01/09/2006 5 - Intolerance Comments: passed out and numbness (IV) Patient ok if pre medicated LEVAQUIN (LEVOFLOXACIN) 01/31/2007 5 - Intolerance Comments: doesn't work NIACIN 02/17/2008 5 - Intolerance SULFA (SULFONAMIDE ANTIBIOTICS) 01/21/2009 Comments: yeast infection VICODIN (HYDROCODONE-ACETAMI NOPHE*01/31/2007 9 - Itching Date Reviewed: 04/21/2021 Reviewed by: Rubia Abad Ma - Fully Assessed Reason for Visit: Post Op [174] Primary Visit Diagnosis:Tear of right gluteus medius tendon, subsequent encounter [S76.011D] Order(s):CONSULT TO PHYSICAL THERAPY [9032] Order #: [id number]: 1 FUTURE Prescriptions as of 04/21/2021 - glipiZIDE-metFORMIN (METAGLIP) 2.5-250 mg tablet Take 1 tablet by mouth twice daily before meals. - aspirin, enteric coated (ASPIRIN LOW DOSE) 81 mg EC tablet Take 81 mg by mouth once daily. - famotidine (PEPCID) 20 mg tablet Take 20 mg by mouth daily at bedtime. - naloxone 4 mg/actuation nasal spray (NARCAN) Use 1 spray in one nostril as needed for overdose. May repeat every 2 to 3 minutes in alternating nostrils until medical assistance is available - ascorbic acid, vitamin C, (VITAMIN C) 500 mg tablet Take 1 tablet by mouth twice daily with meals for 27 doses. - metFORMIN (GLUCOPHAGE) 1,000 mg tablet Take 500 mg by mouth twice daily. - amLODIPine (NORVASC) 5 mg tablet Take 5 mg by mouth once daily. - gabapentin (NEURONTIN) 300 mg capsule Take 300 mg by mouth twice daily. - nabumetone (RELAFEN) 750 mg tablet Take 750 mg by mouth twice daily. - omeprazole (PRILOSEC) 40 mg capsule Take 40 mg by mouth once daily. - METHENAMINE HIPPURATE ORAL Take 1 g by mouth twice daily. - CALCIUM-MAGNESIUM ORAL Take by mouth once d (more content not included)... Normal [facility] XR HIP 3V PELV+ AP/LAT RTon 04-21-2021 XR HIP 3V PELV+ AP/LAT RT * * *Final Report* * * DATE OF EXAM: Apr 21 2021 9:55AM CCX 5352 - XR HIP 3V PELV+ AP/LAT RT / PROCEDURE REASON: Tear of right gluteus medius tendon, initial encounter * * * * Physician Interpretation * * * * HISTORY: Tear of right gluteus medius tendon, initial encounter TECHNIQUE: Frontal radiograph of the pelvis and 2 views right hip COMPARISON: 12/31/2020 RESULT: There is no acute fracture. Normal right hip joint space. Postsurgical change involving greater and lesser trochanters appears unchanged. There is mild left hip degenerative change. Normal sacroiliac joints. Degenerative change of the lower lumbar spine. IMPRESSION: NO ACUTE BONY ABNORMALITY OR INTERVAL CHANGE Deputy Attorney General: [facility] Transcribe Date/Time: Apr 21 2021 10:31A Dictated by : LACEY BLACKWOOD MD This examination was interpreted and the report reviewed and electronically signed by: LACEY BLACKWOOD MD on Apr 21 2021 10:49AM EST [id number] Normal [facility] XR Pelvis and Hip - right AP and Lateral frogon 04-21-2021 IMPRESSION: NO ACUTE BONY ABNORMALITY OR INTERVAL CHANGE Deputy Attorney General: [facility] Transcribe Date/Time: Apr 21 2021 10:31A Dictated by : LACEY BLACKWOOD MD This examination was interpreted and the report reviewed and electronically signed by: LACEY BLACKWOOD MD on Apr 21 2021 10:49AM EST DIVISION OF RADIOLOGY * * *Final Report* * * DATE OF EXAM: Apr 21 2021 9:55AM CCX 5352 - XR HIP 3V PELV+ AP/LAT RT / PROCEDURE REASON: Tear of right gluteus medius tendon, initial encounter * * * * Physician Interpretation * * * * HISTORY: Tear of right gluteus medius tendon, initial encounter TECHNIQUE: Frontal radiograph of the pelvis and 2 views right hip COMPARISON: 12/31/2020 RESULT: There is no acute fracture. Normal right hip joint space. Postsurgical change involving greater and lesser trochanters appears unchanged. There is mild left hip degenerative change. Normal sacroiliac joints. Degenerative change of the lower lumbar spine. DIVISION OF RADIOLOGY Provider, [facility] [place] - 04/21/2021 * * *Final Report* * * DATE OF EXAM: Apr 21 2021 9:55AM CCX 5352 - XR HIP 3V PELV+ AP/LAT RT / PROCEDURE REASON: Tear of right gluteus medius tendon, initial encounter * * * * Physician Interpretation * * * * HISTORY: Tear of right gluteus medius tendon, initial encounter TECHNIQUE: Frontal radiograph of the pelvis and 2 views right hip COMPARISON: 12/31/2020 RESULT: There is no acute fracture. Normal right hip joint space. Postsurgical change involving greater and lesser trochanters appears unchanged. There is mild left hip degenerative change. Normal sacroiliac joints. Degenerative change of the lower lumbar spine. IMPRESSION IMPRESSION: NO ACUTE BONY ABNORMALITY OR INTERVAL CHANGE Deputy Attorney General: [facility] Transcribe Date/Time: Apr 21 2021 10:31A Dictated by : LACEY BLACKWOOD MD This examination was interpreted and the report reviewed and electronically signed by: LACEY BLACKWOOD MD on Apr 21 2021 10:49AM EST [facility] Radiology Study observation (narrative) [facility] XR Pelvis and Hip - right AP and Lateral frogOrdered By: [facility] Provider on 04-21-2021 [facility] 03-31-2021 CNPN Telephone (ORQ) KORIN HARPER ([id number]) 1950 F Date Time Provider Department 03/31/21 CHRISTINA FISCHER ORQ During your visit today, we recorded the following information about you: Cate Goodman Adm 03/31/2021 10:47 AM Signed Korin Harper DOS 03/09/21 Procedure: SUTURE REPAIR GLUTEUS MEDIUS Last seen 03/24/21 for Right Hip - Post Op; [facility] team, Order need ed for outpatient PT, once order is available will mail to patients home address at the request of the patient. Thank you Cate Harper Ph. [phone] Thank you Cate Allergies As of Date: 03/31/2021 Noted Allergy Reaction cat scan dye [Other] 01/09/2006 5 - Intolerance Comments: passed out and numbness (IV) Patient ok if pre medicated LEVAQUIN (LEVOFLOXACIN) 01/31/2007 5 - Intolerance Comments: doesn't work NIACIN 02/17/2008 5 - Intolerance SULFA (SULFONAMIDE ANTIBIOTICS) 01/21/2009 Comments: yeast infection VICODIN (HYDROCODONE-ACETAMI NOPHE*01/31/2007 9 - Itching Date Reviewed: 03/24/2021 Reviewed by: EVA Morrison - Fully Assessed Reason for Visit: Orders [681] Primary Visit Diagnosis:Status post hip surgery [Z98.890] Order(s):CONSULT TO PHYSICAL THERAPY [9032] Order #: [id number]: 1 FUTURE Prescriptions as of 03/31/2021 - glipiZIDE-metFORMIN (METAGLIP) 2.5-250 mg tablet Take 1 tablet by mouth twice daily before meals. - aspirin, enteric coated (ASPIRIN LOW DOSE) 81 mg EC tablet Take 81 mg by mouth once daily. - famotidine (PEPCID) 20 mg tablet Take 20 mg by mouth daily at bedtime. - naloxone 4 mg/actuation nasal spray (NARCAN) Use 1 spray in one nostril as needed for overdose. May repeat every 2 to 3 minutes in alternating nostrils until medical assistance is available - ascorbic acid, vitamin C, (VITAMIN C) 500 mg tablet Take 1 tablet by mouth twice daily with meals for 27 doses. - metFORMIN (GLUCOPHAGE) 1,000 mg tablet Take 500 mg by mouth twice daily. - amLODIPine (NORVASC) 5 mg tablet Take 5 mg by mouth once daily. - gabapentin (NEURONTIN) 300 mg capsule Take 300 mg by mouth twice daily. - nabumetone (RELAFEN) 750 mg tablet Take 750 mg by mouth twice daily. - omeprazole (PRILOSEC) 40 mg capsule Take 40 mg by mouth once daily. - METHENAMINE HIPPURATE ORAL Take 1 g by mouth twice daily. - CALCIUM-MAGNESIUM ORAL Take by mouth once daily. Aissatou/mag 2000 mg/600 mg - colestipol (COLESTID) 1 gram tablet Take 1 g by mouth twice daily. - clopidogrel (PLAVIX) 75 mg tablet Take 75 mg by mouth once daily. - isosorbide mononitrate ER (IMDUR) 30 mg 24 hr tablet Take 30 mg by mouth once daily. - allopurinol (ZYLOPRIM) 100 mg tablet Take 100 mg by mouth once daily. - estradiol (ESTRACE) 0.01 % (0.1 mg/gram) vaginal cream Use small amount at vaginal opening 1-2 times per week. - rosuvastatin calcium(CRESTOR 20 MG TAB) - metoprolol tartrate(LOPRESSOR 50 MG TAB) Take two(2)tablet twice daily. - levothyroxine sodium(SYNTHROID 100 MCG TAB) Take one(1) tablet daily. Meds Comments as of 03/16/2021: clopidogrel + nabumetone shows severe interaction 03/16/21. clopidogrel + omeprazole shows severe interaction 03/16/21 Problem List As Of Date 03/31/2021 Noted Resolved ATROPHIC VAGINITIS [N95.2] 01/10/2006 CHRONIC CYSTITIS NEC [N30.20] 02/22/2006 Blood in stool [K92.1] 05/11/2009 02/23/2021 Hypercholesteremia [E78.00] 06/02/2013 PVC (premature ventricular contraction) [I49.3] 06/02/2013 Hypothyroid [E03.9] 06/02/2013 Arteriosclerosis of coronary artery [I25.10] 11/30/2011 Gastroesophageal reflux disease [K21.9] 09/03/2014 Hypertension [I10] 06/03/2015 Type 2 diabetes mellitus (HCC) [E11.9] 03/02/2016 Ventricular premature beats [I49.3] 06/07/2012 TOYNI (obstructive sleep apnea) [G47.33] 02/23/2021 Frequent UTI [N39.0] 02/23/2021 Class 1 obesity due to excess calories with ser*02/23/2021 Encounter Status:Closed by PRADEEP CASTANEDA on 03/31/21 Normal [facility] CNOVon 03-24-2021 CNOV Office Visit (RYLAN) KORIN HARPER ([id number]) 1950 F Date Time Provider Department 03/24/21 10:15 AM GALINA HUITRON During your visit today, we recorded the following information about you: EVA Morrison 03/25/2021 8:26 AM Signed Right gluteus repair 2 week post op Doing well Ambulates with w/c Pain 0/10 Incision looks very good Physical Therapy going well Cast tech in to adjust brace for comfort Follow up at 6 week [address] op with Dr Fischer with XR first Referring Provider: CHRISTINA FISCHER [[id number]] Allergies As of Date: 03/24/2021 Noted Allergy Reaction cat scan dye [Other] 01/09/2006 5 - Intolerance Comments: passed out and numbness (IV) Patient ok if pre medicated LEVAQUIN (LEVOFLOXACIN) 01/31/2007 5 - Intolerance Comments: doesn't work NIACIN 02/17/2008 5 - Intolerance SULFA (SULFONAMIDE ANTIBIOTICS) 01/21/2009 Comments: yeast infection VICODIN (HYDROCODONE-ACETAMI NOPHE*01/31/2007 9 - Itching Date Reviewed: 03/24/2021 Reviewed by: EVA Morrison - Fully Assessed Reason for Visit: Post Op [174] Primary Visit Diagnosis:Tear of right gluteus medius tendon, initial encounter [S76.011A] Prescriptions as of 03/25/2021 - glipiZIDE-metFORMIN (METAGLIP) 2.5-250 mg tablet Take 1 tablet by mouth twice daily before meals. - aspirin, enteric coated (ASPIRIN LOW DOSE) 81 mg EC tablet Take 81 mg by mouth once daily. - famotidine (PEPCID) 20 mg tablet Take 20 mg by mouth daily at bedtime. - naloxone 4 mg/actuation nasal spray (NARCAN) Use 1 spray in one nostril as needed for overdose. May repeat every 2 to 3 minutes in alternating nostrils until medical assistance is available - ascorbic acid, vitamin C, (VITAMIN C) 500 mg tablet Take 1 tablet by mouth twice daily with meals for 27 doses. - metFORMIN (GLUCOPHAGE) 1,000 mg tablet Take 500 mg by mouth twice daily. - amLODIPine (NORVASC) 5 mg tablet Take 5 mg by mouth once daily. - gabapentin (NEURONTIN) 300 mg capsule Take 300 mg by mouth twice daily. - nabumetone (RELAFEN) 750 mg tablet Take 750 mg by mouth twice daily. - omeprazole (PRILOSEC) 40 mg capsule Take 40 mg by mouth once daily. - METHENAMINE HIPPURATE ORAL Take 1 g by mouth twice daily. - CALCIUM-MAGNESIUM ORAL Take by mouth once daily. Aissatou/mag 2000 mg/600 mg - colestipol (COLESTID) 1 gram tablet Take 1 g by mouth twice daily. - clopidogrel (PLAVIX) 75 mg tablet Take 75 mg by mouth once daily. - isosorbide mononitrate ER (IMDUR) 30 mg 24 hr tablet Take 30 mg by mouth once daily. - allopurinol (ZYLOPRIM) 100 mg tablet Take 100 mg by mouth once daily. - estradiol (ESTRACE) 0.01 % (0.1 mg/gram) vaginal cream Use small amount at vaginal opening 1-2 times per week. - rosuvastatin calcium(CRESTOR 20 MG TAB) - metoprolol tartrate(LOPRESSOR 50 MG TAB) Take two(2)tablet twice daily. - levothyroxine sodium(SYNTHROID 100 MCG TAB) Take one(1) tablet daily. Meds Comments as of 03/16/2021: clopidogrel + nabumetone shows severe interaction 03/16/21. clopidogrel + omeprazole shows severe interaction 03/16/21 Problem List As Of Date 03/24/2021 Noted Resolved ATROPHIC VAGINITIS [N95.2] 01/10/2006 CHRONIC CYSTITIS NEC [N30.20] 02/22/2006 Blood in stool [K92.1] 05/11/2009 02/23/2021 Hypercholesteremia [E78.00] 06/02/2013 PVC (premature ventricular contraction) [I49.3] 06/02/2013 Hypothyroid [E03.9] 06/02/2013 Arteriosclerosis of coronary artery [I25.10] 11/30/2011 Gastroesophageal reflux disease [K21.9] 09/03/2014 Hypertension [I10] 06/03/2015 Type 2 diabetes mellitus (HCC) [E11.9] 03/02/2016 Ventricular premature beats [I49.3] 06/07/2012 TOYIN (obstructive sleep apnea) [G47.33] 02/23/2021 Frequent UTI [N39.0] 02/23/2021 Class 1 obesity due to excess calories with ser*02/23/2021 Encounter Status:Closed by GALINA HUITRON on 03/25/21 [facility] CNPHannah 03-23-2021 CNPN Telephone (HCSIND) KORIN HARPER ([id number]) 1950 F Date Time Provider Department 03/23/21 KELLI MADRID During your visit today, we recorded the following information about you: Kelli Madrid, PT 03/23/2021 4:06 PM Signed D/c home PT Goals met Pt/Spouse indep with current protocol Allergies As of Date: 03/23/2021 Noted Allergy Reaction cat scan dye [Other] 01/09/2006 5 - Intolerance Comments: passed out and numbness (IV) Patient ok if pre medicated LEVAQUIN (LEVOFLOXACIN) 01/31/2007 5 - Intolerance Comments: doesn't work NIACIN 02/17/2008 5 - Intolerance SULFA (SULFONAMIDE ANTIBIOTICS) 01/21/2009 Comments: yeast infection VICODIN (HYDROCODONE-ACETAMI NOPHE*01/31/2007 9 - Itching Date Reviewed: 03/10/2021 Reviewed by: Jan Robbins, FLORENTIN - Fully Assessed Reason for Visit: Home Care [4073] Cmt: agency d/c Prescriptions as of 03/23/2021 - aspirin, enteric coated (ASPIRIN LOW DOSE) 81 mg EC tablet Take 81 mg by mouth once daily. - famotidine (PEPCID) 20 mg tablet Take 20 mg by mouth daily at bedtime. - naloxone 4 mg/actuation nasal spray (NARCAN) Use 1 spray in one nostril as needed for overdose. May repeat every 2 to 3 minutes in alternating nostrils until medical assistance is available - ascorbic acid, vitamin C, (VITAMIN C) 500 mg tablet Take 1 tablet by mouth twice daily with meals for 27 doses. - metFORMIN (GLUCOPHAGE) 1,000 mg tablet Take 500 mg by mouth twice daily. - amLODIPine (NORVASC) 5 mg tablet Take 5 mg by mouth once daily. - gabapentin (NEURONTIN) 300 mg capsule Take 300 mg by mouth twice daily. - nabumetone (RELAFEN) 750 mg tablet Take 750 mg by mouth twice daily. - omeprazole (PRILOSEC) 40 mg capsule Take 40 mg by mouth once daily. - METHENAMINE HIPPURATE ORAL Take 1 g by mouth twice daily. - CALCIUM-MAGNESIUM ORAL Take by mouth once daily. Aissatou/mag 2000 mg/600 mg - colestipol (COLESTID) 1 gram tablet Take 1 g by mouth twice daily. - clopidogrel (PLAVIX) 75 mg tablet Take 75 mg by mouth once daily. - isosorbide mononitrate ER (IMDUR) 30 mg 24 hr tablet Take 30 mg by mouth once daily. - allopurinol (ZYLOPRIM) 100 mg tablet Take 100 mg by mouth once daily. - estradiol (ESTRACE) 0.01 % (0.1 mg/gram) vaginal cream Use small amount at vaginal opening 1-2 times per week. - rosuvastatin calcium(CRESTOR 20 MG TAB) Take one(2) tablet at bedtime. - metoprolol tartrate(LOPRESSOR 50 MG TAB) Take two(2)tablet twice daily. - levothyroxine sodium(SYNTHROID 100 MCG TAB) Take one(1) tablet daily. Meds Comments as of 03/16/2021: clopidogrel + nabumetone shows severe interaction 03/16/21. clopidogrel + omeprazole shows severe interaction 03/16/21 Problem List As Of Date 03/23/2021 Noted Resolved ATROPHIC VAGINITIS [N95.2] 01/10/2006 CHRONIC CYSTITIS NEC [N30.20] 02/22/2006 Blood in stool [K92.1] 05/11/2009 02/23/2021 Hypercholesteremia [E78.00] 06/02/2013 PVC (premature ventricular contraction) [I49.3] 06/02/2013 Hypothyroid [E03.9] 06/02/2013 Arteriosclerosis of coronary artery [I25.10] 11/30/2011 Gastroesophageal reflux disease [K21.9] 09/03/2014 Hypertension [I10] 06/03/2015 Type 2 diabetes mellitus (HCC) [E11.9] 03/02/2016 Ventricular premature beats [I49.3] 06/07/2012 TOYIN (obstructive sleep apnea) [G47.33] 02/23/2021 Frequent UTI [N39.0] 02/23/2021 Class 1 obesity due to excess calories with ser*02/23/2021 Encounter Status:Closed by KELLI MADRID on 03/23/21 [facility] Alfredo 03-14-2021 CNPN Telephone (ORQ) KORIN HARPER ([id number]) 1950 F Date Time Provider Department 03/14/21 CHRISTINA FISCHER ORQ During your visit today, we recorded the following information about you: Anisha Benson Pss 03/14/2021 12:01 PM Signed Please contact this patient to discuss home care PT DOS 03/09/21 EVA Morrison 03/14/2021 12:14 PM Signed Spoke with patient let her know she is to maintain NWB status for min 6 weeks post op and to wear brace 24.7 I would like her to start PT at home, told her 1-2 sessions to get exercises to do on her own. She said the CM that was assigned to her in the hospital didn't get to the room by the time she was d/c and therefore no HC orders were placed. I told her if no one reaches out to her by tomorrow to call us and we can help assist getting HC PT scheduled Allergies As of Date: 03/14/2021 Noted Allergy Reaction cat scan dye [Other] 01/09/2006 5 - Intolerance Comments: passed out and numbness (IV) Patient ok if pre medicated LEVAQUIN (LEVOFLOXACIN) 01/31/2007 5 - Intolerance Comments: doesn't work NIACIN 02/17/2008 5 - Intolerance SULFA (SULFONAMIDE ANTIBIOTICS) 01/21/2009 Comments: yeast infection VICODIN (HYDROCODONE-ACETAMI NOPHE*01/31/2007 9 - Itching Date Reviewed: 03/10/2021 Reviewed by: Jan Robbins RN - Fully Assessed Reason for Visit: Patient Question [1477] Primary Visit Diagnosis:Tear of gluteus medius tendon, subsequent encounter [S76.019D] Order(s):CONSULT TO [facility] [[id number]] Order #: [id number]: 1 Prescriptions as of 03/14/2021 - acetaminophen (TYLENOL EXTRA STRENGTH) 500 mg tablet Take 2 tablets by mouth every 8 hours as needed for pain for up to 14 days. - oxyCODONE IR (ROXICODONE) 5 mg immediate release tablet Take 1 tablet by mouth every 4 hours as needed for pain for up to 7 days. - docusate sodium (COLACE) 100 mg capsule Take 1 capsule by mouth twice daily as needed for constipation. Take for as long as you are taking pain medication, stop if you develop diarrhea - naloxone 4 mg/actuation nasal spray (NARCAN) Use 1 spray in one nostril as needed for overdose. May repeat every 2 to 3 minutes in alternating nostrils until medical assistance is available - ondansetron (ZOFRAN) 4 mg tablet Take 1 tablet by mouth every 8 hours as needed for nausea/vomiting for up to 7 days. - ascorbic acid, vitamin C, (VITAMIN C) 500 mg tablet Take 1 tablet by mouth twice daily with meals for 27 doses. - metFORMIN (GLUCOPHAGE) 1,000 mg tablet Take 500 mg by mouth twice daily. - amLODIPine (NORVASC) 5 mg tablet Take 5 mg by mouth once daily. - gabapentin (NEURONTIN) 300 mg capsule Take 300 mg by mouth twice daily. - nabumetone (RELAFEN) 750 mg tablet Take 750 mg by mouth twice daily. - omeprazole (PRILOSEC) 40 mg capsule Take 40 mg by mouth once daily. - METHENAMINE HIPPURATE ORAL Take 1 g by mouth twice daily. - CALCIUM-MAGNESIUM ORAL Take by mouth once daily. Aissatou/mag 2000 mg/600 mg - colestipol (COLESTID) 1 gram tablet Take 1 g by mouth twice daily. - clopidogrel (PLAVIX) 75 mg tablet Take 75 mg by mouth once daily. - isosorbide mononitrate ER (IMDUR) 30 mg 24 hr tablet Take 30 mg by mouth once daily. - allopurinol (ZYLOPRIM) 100 mg tablet Take 100 mg by mouth once daily. - estradiol (ESTRACE) 0.01 % (0.1 mg/gram) vaginal cream Use small amount at vaginal opening 1-2 times per week. - Aspirin 81 mg tab Take 81 mg by mouth. - rosuvastatin calcium(CRESTOR 20 MG TAB) Take one(2) tablet at bedtime. - metoprolol tartrate(LOPRESSOR 50 MG TAB) Take one(1) tablet twice daily. - calcium carbonate/vitamin d3(CALCIUM 600 + D(3) 600 MG (1,500)-200 UNIT TAB) Take one(1) tablet daily. - levothyroxine sodium(SYNTHROID 100 MCG TAB) Take one(1) tablet daily. Problem List As Of Date 03/14/2021 Noted Resolved ATROPHIC VAGINITIS [N95.2] 01/10/2006 CHRONIC CYSTITIS NEC [N30.20] 02/22/2006 Blood in stool [K92.1] 05/11/2009 02/23/2021 Hypercholesteremia [E78.00] 06/02/2013 PVC (premature ventricular contraction) [I49.3] 06/02/2013 Hypothyroid [E03.9] 06/02/2013 Arteriosclerosis of coronary artery [I25.10] 11/30/2011 Gastroesophageal reflux disease [K21.9] 09/03/2014 Hypertension [I10] 06/03/2015 Type 2 diabetes mellitus (HCC) [E11.9] 03/02/2016 Ventricular premature beats [I49.3] 06/07/2012 TOYIN (obstructive sleep apnea) [G47.33] 02/23/2021 Frequent UTI [N39.0] 02/23/2021 Class 1 obesity due to excess calories with ser*02/23/2021 Encounter Status:Closed by PRADEEP CASTANEDA on 03/14/21 Normal [facility] Basic Metabolic Panlon 03-10 Anion gap [Moles/Vol] 13 mmol/L Normal 9-18 [facility] Comment on above: Performed By: #### B MP, CBC ####[place] [address] [place] [phone] Calcium [Mass/Vol] 9.3 mg/dL Normal 8.5-10.2 [facility] Comment on above: Performed By: #### B MP, CBC ####[place] [phone] Chloride [Moles/Vol] 102 mmol/L Normal 97-105 [facility] [place] [facility] Comment on above: Performed By: #### B MP, CBC ####[place] [address] [place] [phone] CO2 [Moles/Vol] 23 mmol/L Normal 22-30 [facility] Comment on above: Performed By: #### B MP, CBC ####[place] [address] [place] [phone] Creatinine [Mass/Vol] 0.65 mg/dL Normal 0.58-0.96 [facility] Comment on above: Performed By: #### B MP, CBC ####[place] [address] [place], [place] [phone] eGFR- Amer. >60 Normal [facility] Comment on above: Performed By: #### B MP, CBC ####[place] [address] [place], [place] [phone] eGFR-All Other Races >60 Normal [facility] [place] [facility] Comment on above: Result Comment: eGFR (Estimated GFR) Units of measure: mL/min/1.73 meters squared eGFR is derived from the reexpressed MDRD Study equation using the following parameters: serum creatinine, age, gender and race. The creatinine assay has been calibrated to be traceable to [employer]. An eGFR <60 mL/min/1.73m2 for >3 months is consistent with chronic kidney disease. Refer to KDOQI guidelines for clinical interpretation. In patients with unstable renal function, e.g. those with acute kidney injury, the eGFR may not accurately reflect actual GFR. Performed By: #### B MP, CBC ####[facility] [place], [place] [phone] Glucose [Mass/Vol] 200 mg/dL High 74-99 [facility] Comment on above: Result Comment: The [place] [employer] (ADA) provides guidance for cutoff values for fasting glucose and random glucose. The ADA defines fasting as no caloric intake for at least 8 hours. Fasting plasma glucose results between 100 to 125 mg/dL indicate increased risk for diabetes (prediabetes). Fasting plasma glucose results greater than or equal to 126 mg/dL meet the criteria for diagnosis of diabetes. In the absence of unequivocal hyperglycemia, results should be confirmed by repeat testing. In a patient with classic symptoms of hyperglycemia or hyperglycemic crisis, random plasma glucose results greater than or equal to 200 mg/dL meet the criteria for diagnosis of diabetes. Reference: Standards of Medical Care in Diabetes 2016, [place] [employer]. Diabetes Care. 2016.39(Suppl 1). Performed By: #### B MP, CBC ####[facility] [place], [place] [phone] Potassium [Moles/Vol] 4.3 mmol/L Normal 3.7-5.1 [facility] Comment on above: Performed By: #### B MP, CBC ####[facility] [place], [place] [phone] Sodium [Moles/Vol] 138 mmol/L Normal 136-144 [facility] Comment on above: Performed By: #### B MP, CBC ####[facility] [place], [place] [phone] Urea nitrogen [Mass/Vol] 12 mg/dL Normal 7-21 [facility] Comment on above: Performed By: #### B MP, CBC ####[place] [address] [address] [place], [place] [phone] CBCon 03-10-2021 Absolute nRBC <0.01 Normal <0.01 [facility] Comment on above: Performed By: #### B MP, CBC ####[place] [address] [place] [place] [phone] Erythrocyte distribution width (RBC) [Ratio] 13.1 % Normal 11.5-15.0 [facility] Comment on above: Performed By: #### B MP, CBC ####[place] [address] [place], [place] [phone] Hematocrit (Bld) [Volume fraction] 36.9 % Normal 36.0-46.0 [facility] Comment on above: Performed By: #### B MP, CBC ####[place] [address] [place] [place] [phone] Hemoglobin (Bld) [Mass/Vol] 12.0 g/dL Normal 11.5-15.5 [facility] Comment on above: Performed By: #### B MP, CBC ####[place] [address] [address] [place], [place] [phone] MCH 30.2 pG Normal 26.0-34.0 [facility] Comment on above: Performed By: #### B MP, CBC ####[place] [address] [address] [place], [place] [phone] MCHC (RBC) [Mass/Vol] 32.5 g/dL Normal 30.5-36.0 [facility] Comment on above: Performed By: #### B MP, CBC ####[place] [address] [address] [place], [place] [phone] MCV (RBC) [Entitic vol] 92.7 fL Normal 80.0-100.0 [facility] Comment on above: Performed By: #### B MP, CBC ####[facility] [place], [place] [phone] Platelet mean volume (Bld) [Entitic vol] 10.0 fL Normal 9.0-12.7 [facility] Comment on above: Performed By: #### B MP, CBC ####[place] [id number] [place], [place] [phone] Platelets (Bld) [#/Vol] 217 10*3/uL Normal 150-400 [facility] Comment on above: Performed By: #### B MP, CBC ####[address] [phone] RBC (Bld) [#/Vol] 3.98 10*6/uL Normal 3.90-5.20 [facility] Comment on above: Performed By: #### B MP, CBC ####[address] [phone] WBC (Bld) [#/Vol] 10.88 10*3/uL Normal 3.70-11.00 [facility] [place] [facility] Comment on above: Performed By: #### B MP, CBC ####[facility] [place], [place] [phone] THERAPY NTon 03-10-2021 THERAPY NT HNO ID: [id number] Author: Mateo Menjivar, PT Service: Physical Therapy Author Type: Physical Therapist Type: Therapy (PT/OT/Speech/Resp) Filed: 03/10/2021 3:54 PM Note Text: Physical Therapy Evaluation SERVICE DATE: 03/10/2021 SERVICE TIME: 1450 to 1530 ROOM: [place] [address] Recommended Discharge Disposition: Home Anticipated Discharge Needs: Physical Assist at Home Physical Assist at Home for: Stairs;Self Care;Shopping;Transp ortation;Meals;Laund ry;Cleaning Recommended Discharge Equipment: No equipment needs anticipated PT 6 Clicks Score: 21 Precautions/Activity Restrictions: Weight Bearing Restrictions;Brace;F all Risk;Lines/Tubes/Kenyatta ins Precaution/Activity Restriction Comments: Lateral hip precautions- no abduction Extremity With Weight Bearing Restricted: Right Lower Extremity Right Lower Extremity Weight Bearing Status: NWB Current Hospital Course: 03/09/21 SUTURE REPAIR GLUTEUS MEDIUS (Right) performed by Dr. Fischer Reason for Hospital Admission: Tear of right gluteus medius tendon, initial encounter Relevant Past Medical History: Osteoarthrosis, hypothyroidism, recurrent UTI, DM II, IBS, heart disease Response to Therapy Interventions: Good participation in activities, On-track to achieve discharge goals Treatment Interventions: Education Home Environment Patient Lives With: Spouse Assistance Available: 24 Hour;Other: See Comment (spouse and daughter) Entry To Home: Stairs;With Rail Number Of Stairs Into Home: 3 (platform steps w/ rail and grab bar by door) Number Of Stairs To Bed/Bath: 0 Tub/Shower Type: Walk-in w/ shower chair and HHSH Laundry: On main level- family able to complete Equipment Owned: Lift Chair;Shower Chair;Wheeled Walker;Hand Held Shower;Elevated Toilet Seat;Grab Bars-Toilet;Geodesist Prior Functional Level: Within Functional Limits 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: pt reports she was utilizing cane for functional mobility, denies recent falls, ind w/ ADLs/IADLs Patient Report: agreeable to physical therapy CURRENT FUNCTIONAL STATUS: Most recent performance Current Functional Mobility Assist Level Additional Information Rolling Supine to Sit Sit to Supine Scooting Sit to Stand Stand By Assistance Stand to Sit Stand By Assistance Bed to Chair Toilet/Commode Gait Stand By Assistance Gait Device: Wheeled Walker Gait Distance (feet): 40 (20'x2) Stairs Contact Guard Assistance Stairs Device: Rail;Crutch(es) Number of Stairs: 4 Curb Step Car Transfer Blank cool indicate activity not attempted General Deviations/Observati ons: (able to maintain NWB) Balance: Static Sitting;Dynamic Sitting;Static Standing;Dynamic Standing Static Sitting Balance: Good Patient able to maintain balance without handhold support, limited postural sway Dynamic Sitting Balance: Good Patient accepts moderate challenge, able to maintain balance while picking up object off floor Static Standing Balance: Good Patient able to maintain balance without handhold support, limited postural sway Dynamic Standing Balance: Fair Patient accepts minimal challenge, able to maintain balance while turning head/trunk JH-HLM: 7: Walk 25 feet or more Learning/Educational Needs: Discharge Plan;Functional Activities/Mobility; Plan of Care;Precautions;Beverly abilitation Techniques and Procedures;Safety Goals for Plan of Care: Patient /Caregiver Goals: Walk;Go Home Goals: Patient will demonstrate progress to optimize functional mobility, maximize activity tolerance and endurance to maximize function upon discharge. Patient will be discontinued from Physical Therapy when no further skilled needs are identified in this setting. PLAN: PT Frequency: Discontinue therapy services Reasons Therapy Services Discontinued: Goals met Plan of Care developed with: Patient TREATMENT INTERVENTIONS: Therapy Diagnosis: Reduced mobility-other Interventions Provided: Evaluation;Therapeut ic Activity (17797);Gait Training (95933) $ Evaluation-Low (25050) Billed Units: 1 unit Therapeutic Activity (32292) Treatment Minutes: 10 $ Therapeutic Activity (78490) Billed Units: 1 unit Gait Training (65080) Treatment Minutes: 15 $ Gait Training (91335) Billed Units: 1 unit Training AND education provided in: Assistive device use, Benefits of in-hospital mobility, Equipment, Expected functional level, Falls prevention, Gait pattern, reduction of deviations, Home safety, Precautions/restrict ions, Role of Physical Therapy, Stair navigation, Standing balance The following therapeutic skills were used: Activity dosing, Cues for sequencing/proper technique for activity, Cuing tactile, Movement facilitation, Muscle activation facilitation, Physical assist Total Timed Code Treatment Minutes: 25 Total Treatment Time (minutes): 40 Please see discipline specific clinical documentation flowsheet for complete details for this therapy evaluation/treatment . SIGNATURE: Mateo Menjivar, (more content not included)... Normal [facility] THERAPY NT HNO ID: [id number] Author: Molly Plummer OT/Kale Service: Occupational Therapy Author Type: Occupational Therapist Type: Therapy (PT/OT/Speech/Resp) Filed: 03/10/2021 3:14 PM Note Text: Occupational Therapy Evaluation SERVICE DATE: 03/10/2021 SERVICE TIME: 1417 to 1444 ROOM: [facility] Recommended Discharge Disposition: Home Recommended Discharge Disposition Comments: w/ family assist as needed for ADLs/IADLs Anticipated Discharge Needs: Physical Assist at Home Physical Assist at Home for: Stairs;Self Care;Shopping;Transp ortation;Meals;Laund ry;Cleaning Recommended Discharge Equipment: No equipment needs anticipated OT 6 Clicks Score: 19 Precautions/Activity Restrictions: Weight Bearing Restrictions;Brace;F all Risk;Lines/Tubes/Kenyatta ins Precaution/Activity Restriction Comments: Lateral hip precautions- no abduction Extremity With Weight Bearing Restricted: Right Lower Extremity Right Lower Extremity Weight Bearing Status: NWB Current Hospital Course: 03/09/21 SUTURE REPAIR GLUTEUS MEDIUS (Right) performed by Dr. Fischer Reason for Hospital Admission: Tear of right gluteus medius tendon, initial encounter Relevant Past Medical History: Osteoarthrosis, hypothyroidism, recurrent UTI, DM II, IBS, heart disease Response to Therapy Interventions: Good participation in activities, On-track to achieve discharge goals, Pain Continue skilled needs due to: Functional impairment Occupational Therapy Problem List: Edema;Pain;Impaired Self Care;Decreased Activity Tolerance;Functional Mobility Impairment Cognition/Communicat ion Deficits Responsiveness: Alert, Awake Follows Commands: 3-step Commands Cognitive Clinical Tests and Screens: 4AT Screening 4AT Screening Assess alertness (ask patient to state their name and address): Normal (fully alert, but not agitated, throughout assessment) Ask patient: age, date of , current year, and current location: No mistakes Ask patient to tell me the months of the year backwards order, starting with June : Able to state 7+ months correctly Acute change or fluctuating mental status: No 4AT Score: 0 Treatment Interventions: Education;Self Care / Home Management;Energy Conservation Training;Functional Mobility Training;Pain Management;Edema Management Plan for next visit: Bed mobility, Chair/commode transfer training, Dressing training, Edema management, Pain management, Positioning training, Sit to stand transfers Home Environment Patient Lives With: Spouse Assistance Available: 24 Hour;Other: See Comment (spouse and daughter) Entry To Home: Stairs;With Rail Number Of Stairs Into Home: 3 (platform steps w/ rail and grab bar by door) Number Of Stairs To Bed/Bath: 0 Tub/Shower Type: Walk-in w/ shower chair [facility] Laundry: On main level- family able to complete Equipment Owned: Lift Chair;Shower Chair;Wheeled Walker;Hand Held Shower;Elevated Toilet Seat;Grab Bars-Toilet;Geodesist Prior Functional Level: Within Functional Limits 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: pt reports she was utilizing cane for functional mobility, denies recent falls, ind w/ ADLs/IADLs Patient Report: I have been dealing with this brace since October CURRENT FUNCTIONAL STATUS: Most recent performance Current Activities of Daily Living Assist Level Additional Information Feeding Set Up Grooming Set Up Bathing Upper Body Stand By Assistance Bathing Lower Body Maximal Assistance Dressing Upper Body Set Up Dressing Lower Body Maximal Assistance Toileting Minimal Assistance Instrumental Activities of Daily Living Assist Level Additional Information Meal/Beverage Prep Cleaning Laundry Medication Management with Strategies Functional Mobility Assist Level Additional Information Rolling Supine to Sit Minimal Assistance Sit to Supine Scooting Stand By Assistance Sit to Stand Contact Guard Assistance Stand to Sit Contact Guard Assistance Bed to Chair Contact Guard Assistance;Additiona l Information Stepping Wheeled Walker cues for RLE NWB, hip precautions, and safety- pt with good return demo Toilet/Commode Shower Functional Mobility Blank cool indicate activity not attempted Learning/Educational Needs: Discharge Plan;Equipment;Famil y Education/Training;F unctional Activities/Mobility; Pain Management;Plan of Care;Precautions;Beverly abilitation Techniques and Procedures;Safety;Se lf Care Goals for Plan of Care: Patient /Caregiver Goals: Go Home Goals: Patient will demonstrate progress with self-care, cognitive and/or coping needs identified to allow safe discharge to home with available support and/or physical assistance. Progress Toward Goals: Progressing as expected Rehab Potential: Good Patient will be discontinued from Occupational Therapy when no further skilled needs are identified in this setting. PLAN: OT Frequency: 3 times per week Plan of Care developed with: Patient TREATMENT INTERVENTIONS: Ther (more content not included)... Normal [facility] THERAPY NT HNO ID: [id number] Author: ARACELIS Zaidi Service: Occupational Therapy Author Type: Occupational Therapist Type: Therapy (PT/OT/Speech/Resp) Filed: 03/10/2021 9:29 AM Note Text: OCCUPATIONAL THERAPY MISSED VISIT SERVICE DATE: 03/10/2021 SERVICE TIME: 924 to 924 ROOM: [facility] Attempted Evaluation. Patient not seen due to Eating and pt requesting for therapy to return later this morning after receiving pain medication. Will re-attempt as able and appropriate. SIGNATURE: ARACELIS Zaidi PATIENT NAME: Korin Harper DATE: March 10, 2021 TIME: 9:28 AM Normal [facility] ANES Jose 03-09-2021 ANES POST HNO ID: [id number] Author: Cassandra Dawn MD Service: Anesthesiology Author Type: Anesthesiologist Type: Anesthesia PostOp Filed: 03/09/2021 4:52 PM Note Text: POST ANESTHESIA EVALUATION NOTE SERVICE DATE: 03/09/2021 SERVICE TIME: 13:00 : 1950 Vitals: 03/09/21 1300 03/09/21 1500 03/09/21 1600 03/09/21 1640 Temp: 36 ?C (96.8 ?F) 36 ?C (96.8 ?F) 36.4 ?C (97.5 ?F) 36.6 ?C (97.9 ?F) 03/09/21 1430 03/09/21 1500 03/09/21 1600 03/09/21 1640 BP: 151/85 139/69 132/74 136/76 03/09/21 1430 03/09/21 1500 03/09/21 1600 03/09/21 1640 Pulse: 88 85 94 94 03/09/21 1430 03/09/21 1500 03/09/21 1600 03/09/21 1640 Resp: 20 16 16 16 03/09/21 1430 03/09/21 1500 03/09/21 1600 03/09/21 1640 SpO2: 96% 96% 95% 95% Validated Vital Signs: Yes POST ANES STATUS: No apparent anesthetic complications. The patient is appropriately hydrated with stable respiratory and cardiovascular status. Patient has safe and adequate airway control. The patient has appropriate pain relief and no significant post operative nausea or vomiting. The patient has achieved baseline mental status. Intra-Operative Events: No Significant Anesthesia Events Further assessment by Anesthesia Service: None Other Remarks: SIGNATURE: Cassandra Dawn MD PATIENT NAME: Korin Harper DATE: March 09, 2021 TIME: 4:52 PM PAGER/CONTACT #: [phone] [facility] BRIEF OP NOTon 03-09-2021 BRIEF OP NOT HNO ID: [id number] Author: Jeevan Rea MD Service: Orthopaedic Surgery Author Type: Physician Type: Brief Op Note Filed: 03/09/2021 10:58 AM Note Text: Orthopaedic Surgery BRIEF OPERATIVE NOTE LOG ID: [id number] Surgery/Procedure Date: 03/09/2021 Incision/Procedure Start Time: 8:47 AM Incision Close/Procedure End Time: 10:01 AM Surgeon(s) and Tire Mounter(s): Surgeon(s) and Role: * Christina Fischer MD - Primary * Jeevan Rea MD - Resident - Assisting Physician Tire Mounter: Pradeep Castaneda PA-C Procedure(s): Procedure(s) (LRB): SUTURE REPAIR GLUTEUS MEDIUS (Right) Preoperative Diagnosis: Pre-Op Diagnosis Codes: * Tear of right gluteus medius tendon, initial encounter [S76.011A] Postoperative Diagnosis: Pre-Op Diagnosis Codes: * Tear of right gluteus medius tendon, initial encounter [S76.011A] Anesthesia: General Estimated Blood Loss: 100 cc Specimens: None Complications: None apparent at conclusion of case Implants: Implant Name Type Inv. Item Serial No. Radio Equipment Repairer Lot No. [id number] Model Num No. Used ANCHOR TAPER 5.5MM SUTURE QUATTRO X UHMWPE PEEK 1 ROW [employer]ement [facility] [id number] Right [id number] 1 ANCHOR TAPER 5.5MM SUTURE QUATTRO X UHMWPE PEEK 1 ROW [employer]ement [facility] [id number] Right [id number] 1 ANCHOR TAPER 5.5MM SUTURE QUATTRO X UHMWPE PEEK 1 ROW [employer]ement [facility] [id number] Right [id number] 1 ANCHOR TAPER 5.5MM SUTURE QUATTRO X UHMWPE PEEK 1 ROW [employer]ement [facility] [id number] Right [id number] 1 Post Operative Plan: NWB RLE, brace at all time x6 weeks except hygiene purposes (locked in extension) Precautions: No active abduction right hip Natalia-operative antibiotics DVT ppx: Resume home aspirin and plavix POD 1 PT eval and treat Diet IVF overnight Appropriate home medications Dispo: to floor This patient underwent major orthopedic surgery resulting in pain of such severity that cannot be managed with the 30 MED average limit outlined by the State Medical Board of [place]. A prescription was thus provided that exceeds the 30 MED average limit due to greater than usual pain secondary to major orthopaedic surgery. Every effort will be made to de-escalate the patient's opioid use while providing an appropriate level of postoperative pain management. Electronically signed by: Jeevan Rea MD Adult Reconstruction Fellow Dept of Orthopaedic Surgery [facility] (Please page 2BONE after 5pm and weekends) Normal [facility] CNDSon 03-09-2021 CNDS HNO ID: [id number] Author: Jeevan Rea MD Service: Orthopaedic Surgery Author Type: Physician Type: Discharge Summary Filed: 03/11/2021 8:15 AM Note Text: ORTHOPEDIC SURGERY DISCHARGE SUMMARY ADMISSION DATE: 03/09/2021 DISCHARGE DATE: 03/10/21 Attending Physician: Christina Fischer MD Admitting Diagnosis: Right hip abductor deficiency Discharge Diagnosis: As above Additional Diagnoses: ACTIVE PROBLEM LIST Postmenopausal Atrophic Vaginitis Other Chronic Cystitis Hypercholesteremia Pvc (Premature Ventricular Contraction) Hypothyroid Arteriosclerosis of Coronary Artery Gastroesophageal Reflux Disease Hypertension Type 2 Diabetes Mellitus (Hcc) Ventricular Premature Beats Toyin (Obstructive Sleep Apnea) Frequent Uti Class 1 Obesity Due to Excess Calories With Serious Comorbidity and Body Mass Index (Bmi) of 34.0 to 34.9 in Adult Surgeries During Hospitalization: Procedure(s) (LRB): SUTURE REPAIR GLUTEUS MEDIUS (Right) Consultations: Physical Therapy Case Management Hospital Course: The patient is a 70 year old female who has been followed by Dr. Christina Fischer MD, MD in clinic for right hip abductor deficiency. It was determined she would benefit from surgery. The procedure, its risks, benefits, and potential complications were discussed in detail with the patient prior to surgery. Understanding of all topics was conveyed by the patient, and consent was given for surgery. The patient was electively admitted to the [facility] on 03/09/2021. Surgery was scheduled and on 03/09/2021 she underwent a Procedure(s) (LRB): SUTURE REPAIR GLUTEUS MEDIUS (Right). The procedure was tolerated well and she was sent to the post operative recovery room in stable condition, where she also did well. She was subsequently sent to her hospital room for postoperative management. Once on the floor her postoperative course was unremarkable and she did well. Her diet was advanced which she tolerated. Her pain was eventually transitioned to oral medication alone prior to discharge. She worked with Physical and Occupational Therapy starting on POD#0 who recommended she be discharged to home with services. Her dressing remained clean dry and intact throughout her stay, and was changed when appropriate if necessary. She remained afebrile with stable vital signs throughout her stay. She was stable for discharge on the above specified date. Complete and comprehensive discharge instructions were provided to the patient as well as necessary prescriptions. The patient had no further questions and was advised to call with any questions, concerns, or problems. Patient was hemodynamically stable postoperatively. Relevant labs included: Hemoglobin (g/dL) Date Value 02/23/2021 13.6 Hematocrit (%) Date Value 02/23/2021 40.5 DVT Prophylaxis: Resume your home blood thinner medications (Plavix and Aspirin) to help prevent blood clots. Discharge Antibiotics: IV antibiotics were given after surgery. No further antibiotics have been prescribed Pain Control: Oral opioids provided. Take these only as needed for post operative pain. Wean off as tolerated. Complications: Continued throughout the hospital course without complications. Patient Condition @ Discharge: Stable Discharge Disposition: Home with Home Health Care Other Information: No creams/gels/ointment s/betadine to wound or wound area. No additional PO antibiotics without speaking to the orthopedic team first. Discharge Activity/Weight Bearing Status: Non-weight bearing RLE x6 weeks post-operatively The patient was instructed to follow-up as directed: Future Appointments Date Time Provider Department Center 03/24/2021 10:15 AM EVA Morrison ORTHKAYY [facility] 04/21/2021 9:45 AM XR [facility] RGIND [facility] 04/21/2021 10:30 AM Christina Fischer MD [facility] Discharge Medications: Discharge Medication List as of 03/10/2021 6:08 PM START taking these medications ascorbic acid, vitamin C, (VITAMIN C) 500 mg tablet Take 1 tablet by mouth twice daily with meals for 27 doses. Normal, Disp-27 tablet, R-0, Long-term CONTINUE these medications which have CHANGED acetaminophen (TYLENOL EXTRA STRENGTH) 500 mg tablet Take 2 tablets by mouth every 8 hours as needed for pain for up to 14 days. Normal, Disp-60 tablet, R-0 oxyCODONE IR (ROXICODONE) 5 mg immediate release tablet Take 1 tablet by mouth every 4 hours as needed for pain for up to 7 days. Normal, Disp-42 tablet, R-0 Dx: 1. Other specified injury of muscle, fascia and tendon of right hip, subsequent encounter 2. Acute postoperative pain docusate sodium (COLACE) 100 mg capsule Take 1 capsule by mouth twice daily as needed for constipation. Take for as long as you are taking pain medication, stop if you develop diarrhea Normal, Disp-50 capsule, R-0 naloxone 4 mg/actuation nasal spray (NARCAN) Use 1 spray in (more content not included)... Normal [facility] NURSING PROGon 03-09-2021 NURSING PROG HNO ID: [id number] Author: Jalesea De La Paz RN Service: ? Author Type: Registered Nurse Type: Nursing Progress Note Filed: 03/09/2021 5:05 PM Note Text: Admission/Transfer Note PATIENT NAME: Korin Harper Patient admitted from PACU via bed in stable condition. Actions taken: Patient oriented to room, call light function, prescribed activities, Patient rights and Quiet at night. Patient belongings with patient. No futher actions taken at this time. Will continue to monitor and check with patient. This note was completed by: Jaleesa De La Paz Normal [facility] OPERATIVE NOon 03-09-2021 OPERATIVE NO HNO ID: [id number] Author: Christina Fischer MD Service: Orthopaedic Surgery Author Type: Physician Type: Operative Report Filed: 03/09/2021 10:31 AM Note Text: ORTHO OPERATIVE REPORT LOG ID: [id number] Surgery/Procedure Date: 03/09/2021 Incision/Procedure Start Time: 8:47 AM Incision Close/Procedure End Time: 10:01 AM Surgeon(s)/Procedura list(s) and Tire Mounter(s): Surgeon(s) and Role: * Christina Fischer MD - Primary * Jeevan Rea MD - Resident - Assisting Physician Tire Mounter: Pradeep Castaneda PA-C Pre-Op/Pre-Procedure Diagnosis: Right hip pain (M25.55) 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 Right hip trochanteric bursitis (M70.6) Obesity (BMI 39) (E66) Post-Op/Post-Procedu re Diagnosis: Right hip pain (M25.55) 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 Right hip trochanteric bursitis (M70.6) Obesity (BMI 39) (E66) Procedure(s): Right hip gluteus medius repair, open (62801), with primary repair fixation (89836) Walpole's gluteus stephen/ tensor fascia pierre transfer: Right hip/ thigh transplant/ transfer multiple thigh tendons (81084) Hip greater trochanteric bursectomy (23382) Application of rehabilitation brace under anesthesia [64465] Implant: [employer] [place] Quattro X 5.5mm PEEK Suture Bement (4 anchors placed) Anesthesia: General Indications: This is a 70 year old female with long-standing pain and dysfunction of the Right hip related to gluteus medius tear; the functional disability and pain were refractory to non-operative measures. After discussion of the risks and benefits of surgery, the patient elected for surgical intervention to relieve pain and to improve function. The patient received appropriate pre-operative risk stratification. Informed consent was performed: risks discussed included but were not limited to medical complications, deep venous thrombosis, re-tear or tear progression, failure of fixation, intra-operative and/or post-operative fracture, infection, functional leg-length discrepancy, abductor dysfunction leading to persistent pain and gait dysfunction, recurrent tear requiring augmentation, and hardware failure. Surgical and blood consents were obtained and signed. Procedure: In the pre-operative holding area, the patient was identified, and the Right operative extremity was confirmed by myself and marked with my initials, using a permanent marker. The patient was then brought to the operating room and positioned in the lateral decubitus position. Anesthesia was administered, and appropriate pre-operative antibiotics were given. EMERY stocking was placed on the contralateral limb and sequential compression device intra-operatively. Following satisfactory induction of anesthesia, the limb was prepped and draped in the usual sterile fashion. Before any surgical instrumentation was passed to me by the surgical device sales representative, a formalized time-out occurred, which involves the surgeon, circulating nurse, and anesthesia staff all verifying the correct operative extremity. The initials of a surgeon on the operative team were visible on the prepped and draped operative field. An incision was made along the lateral aspect of the hip. The incision was centered over the tip of the greater trochanter. Electrocautery was used to dissect through the subcutaneous tissue. The fascia overlying the gluteus stephen was incised in line with its fibers. A trochanteric bursectomy was performed of chronically inflamed tissue. This exposed the fibers and raphe of the gluteus medius tendon. With intra-operative visualization, the site of tear was localized: there was a distinct bald area on the trochanter in the area of the insertion of the torn gluteus medius fibers; likewise, the torn edge of the gluteus medius tendon were identified. These ends were freshened. There appeared to be a chronic tear, as there was mild atrophy of the torn tendon parts, but enough tendon bulk and fibers to pursue primary repair. Next, the insertion sites on the greater trochanter were prepared with gentle debridement of bone with a rongeur and curette. This demonstrated punctate bleeding. Four 5.5mm anchors were then placed in the planned repair site within this bed. The anchors had excellent fixation into the bone. The double-loaded suture strands were then used first to capture the torn margins of the gluteus medius in two main limbs utilizing a tendon grasping suture. These two limbs were brought down and secured to the footprints. Additional suture from the anchors was used to imbricate the distal aspect of the tendon over the footprint. This afforded an excellent apposition of tendon down to bone. Nex, the gluteus stephen tendon was prepared for advancement, with 2 limbs for supplemental imbrication. The tensor fascia pierre/ vastus sleeve was also prepared for transfer. The gluteus stephen l (more content not included)... Normal [facility] 03-08-2021 [facility] Telephone (KHANH) KORIN HARPER ([id number]) 1950 F Date Time Provider Department 03/08/21 DYLAN MARSH During your visit today, we recorded the following information about you: Hattie Kauffman Ma 03/08/2021 11:29 AM Signed Patient has been holding plavix since 03/02/21. She states that her outside collector approved. Waiting for Clearance letter from [facility]. Once received, will scan in. Hattie Henley Carrie Igor Kauffman Ma 03/08/2021 12:24 PM Signed Clearance letter received. Scanned into finalsite. Hattie Kauffman Ma Allergies As of Date: 03/08/2021 Noted Allergy Reaction cat scan dye [Other] 01/09/2006 5 - Intolerance Comments: passed out and numbness (IV) Patient ok if pre medicated LEVAQUIN (LEVOFLOXACIN) 01/31/2007 5 - Intolerance Comments: doesn't work NIACIN 02/17/2008 5 - Intolerance SULFA (SULFONAMIDE ANTIBIOTICS) 01/21/2009 Comments: yeast infection VICODIN (HYDROCODONE-ACETAMI NOPHE*01/31/2007 9 - Itching Date Reviewed: 02/23/2021 Reviewed by: Lisa Otero APRN.PROFILING MACHINE SETUP OPERATOR - Fully Assessed Reason for Visit: medication clearance [Other] Prescriptions as of 03/08/2021 - metFORMIN (GLUCOPHAGE) 1,000 mg tablet Take 500 mg by mouth twice daily. - amLODIPine (NORVASC) 5 mg tablet Take 5 mg by mouth once daily. - gabapentin (NEURONTIN) 300 mg capsule Take 300 mg by mouth twice daily. - nabumetone (RELAFEN) 750 mg tablet Take 750 mg by mouth twice daily. - omeprazole (PRILOSEC) 40 mg capsule Take 40 mg by mouth once daily. - METHENAMINE HIPPURATE ORAL Take 1 g by mouth twice daily. - CALCIUM-MAGNESIUM ORAL Take by mouth once daily. Aissatou/mag 2000 mg/600 mg - colestipol (COLESTID) 1 gram tablet Take 1 g by mouth twice daily. - clopidogrel (PLAVIX) 75 mg tablet Take 75 mg by mouth once daily. - isosorbide mononitrate ER (IMDUR) 30 mg 24 hr tablet Take 30 mg by mouth once daily. - allopurinol (ZYLOPRIM) 100 mg tablet Take 100 mg by mouth once daily. - estradiol (ESTRACE) 0.01 % (0.1 mg/gram) vaginal cream Use small amount at vaginal opening 1-2 times per week. - Aspirin 81 mg tab Take 81 mg by mouth. - rosuvastatin calcium(CRESTOR 20 MG TAB) Take one(2) tablet at bedtime. - metoprolol tartrate(LOPRESSOR 50 MG TAB) Take one(1) tablet twice daily. - calcium carbonate/vitamin d3(CALCIUM 600 + D(3) 600 MG (1,500)-200 UNIT TAB) Take one(1) tablet daily. - levothyroxine sodium(SYNTHROID 100 MCG TAB) Take one(1) tablet daily. Problem List As Of Date 03/08/2021 Noted Resolved ATROPHIC VAGINITIS [N95.2] 01/10/2006 CHRONIC CYSTITIS NEC [N30.20] 02/22/2006 Blood in stool [K92.1] 05/11/2009 02/23/2021 Hypercholesteremia [E78.00] 06/02/2013 PVC (premature ventricular contraction) [I49.3] 06/02/2013 Hypothyroid [E03.9] 06/02/2013 Arteriosclerosis of coronary artery [I25.10] 11/30/2011 Gastroesophageal reflux disease [K21.9] 09/03/2014 Hypertension [I10] 06/03/2015 Type 2 diabetes mellitus (HCC) [E11.9] 03/02/2016 Ventricular premature beats [I49.3] 06/07/2012 TOYIN (obstructive sleep apnea) [G47.33] 02/23/2021 Frequent UTI [N39.0] 02/23/2021 Class 1 obesity due to excess calories with ser*02/23/2021 Encounter Status:Closed by HATTIE KAUFFMAN MA on 03/08/21 [facility] 03-07-2021 CNPN Telephone (ORQ) KORIN HARPER ([id number]) 1950 F Date Time Provider Department 03/07/21 CHRISTINA FISCHER ORQ During your visit today, we recorded the following information about you: Cate Goodman Adm 03/07/2021 4:04 PM Signed Korin Isabel DOS 03/09/21 Procedure: SUTURE REPAIR GLUTEUS MEDIUS Hello team, Please call Korin she has questions about her current med's to control her BP she should or shouldn't be taking prior to her DOS s is taking to control her BP. Korin Harper Ph. [phone] Thank you Cate Galina Huitron, MEDICAL SERVICES COORDINATOR 03/07/2021 4:22 PM Signed Spoke with pt she was at PCP and card today and they asked whey she can take metoprolol moring of surgery but didn't mention to take there amlodipine, She is asking if she is to take amlodipine morning of surgery as well. Please advise Galina Huitron, MEDICAL SERVICES COORDINATOR 03/08/2021 9:36 AM Signed Spoke with pt, let her know she can take amlodipine with morning meds DOS she then asked about her antacid, I asked that she hold that the morning of surgery. She agreed and understood. Allergies As of Date: 03/07/2021 Noted Allergy Reaction cat scan dye [Other] 01/09/2006 5 - Intolerance Comments: passed out and numbness (IV) Patient ok if pre medicated LEVAQUIN (LEVOFLOXACIN) 01/31/2007 5 - Intolerance Comments: doesn't work NIACIN 02/17/2008 5 - Intolerance SULFA (SULFONAMIDE ANTIBIOTICS) 01/21/2009 Comments: yeast infection VICODIN (HYDROCODONE-ACETAMI NOPHE*01/31/2007 9 - Itching Date Reviewed: 02/23/2021 Reviewed by: Lisa Otero APRN.PROFILING MACHINE SETUP OPERATOR - Fully Assessed Reason for Visit: Returning Patient's Call [[id number]] Prescriptions as of 03/08/2021 - metFORMIN (GLUCOPHAGE) 1,000 mg tablet Take 500 mg by mouth twice daily. - amLODIPine (NORVASC) 5 mg tablet Take 5 mg by mouth once daily. - gabapentin (NEURONTIN) 300 mg capsule Take 300 mg by mouth twice daily. - nabumetone (RELAFEN) 750 mg tablet Take 750 mg by mouth twice daily. - omeprazole (PRILOSEC) 40 mg capsule Take 40 mg by mouth once daily. - METHENAMINE HIPPURATE ORAL Take 1 g by mouth twice daily. - CALCIUM-MAGNESIUM ORAL Take by mouth once daily. Aissatou/mag 2000 mg/600 mg - colestipol (COLESTID) 1 gram tablet Take 1 g by mouth twice daily. - clopidogrel (PLAVIX) 75 mg tablet Take 75 mg by mouth once daily. - isosorbide mononitrate ER (IMDUR) 30 mg 24 hr tablet Take 30 mg by mouth once daily. - allopurinol (ZYLOPRIM) 100 mg tablet Take 100 mg by mouth once daily. - estradiol (ESTRACE) 0.01 % (0.1 mg/gram) vaginal cream Use small amount at vaginal opening 1-2 times per week. - Aspirin 81 mg tab Take 81 mg by mouth. - rosuvastatin calcium(CRESTOR 20 MG TAB) Take one(2) tablet at bedtime. - metoprolol tartrate(LOPRESSOR 50 MG TAB) Take one(1) tablet twice daily. - calcium carbonate/vitamin d3(CALCIUM 600 + D(3) 600 MG (1,500)-200 UNIT TAB) Take one(1) tablet daily. - levothyroxine sodium(SYNTHROID 100 MCG TAB) Take one(1) tablet daily. Problem List As Of Date 03/07/2021 Noted Resolved ATROPHIC VAGINITIS [N95.2] 01/10/2006 CHRONIC CYSTITIS NEC [N30.20] 02/22/2006 Blood in stool [K92.1] 05/11/2009 02/23/2021 Hypercholesteremia [E78.00] 06/02/2013 PVC (premature ventricular contraction) [I49.3] 06/02/2013 Hypothyroid [E03.9] 06/02/2013 Arteriosclerosis of coronary artery [I25.10] 11/30/2011 Gastroesophageal reflux disease [K21.9] 09/03/2014 Hypertension [I10] 06/03/2015 Type 2 diabetes mellitus (HCC) [E11.9] 03/02/2016 Ventricular premature beats [I49.3] 06/07/2012 TOYIN (obstructive sleep apnea) [G47.33] 02/23/2021 Frequent UTI [N39.0] 02/23/2021 Class 1 obesity due to excess calories with ser*02/23/2021 Encounter Status:Closed by GALINA HUITRON on 03/08/21 Normal [facility] Self Check COVIDon 1 SARS-CoV-2 (COVID-19) RNA NICOLASA+probe Ql (Unsp spec) UPPER RESPIRATORY TRACT SWAB Normal [facility] Comment on above: Performed By: #### H CCOVD ####[address] [id number] [phone] SARS-CoV-2 (COVID-19) RNA NICOLASA+probe Ql (Unsp spec) Negative for COVID19 (SARS CoV2) by RT-PCR or equivalent method. Normal Negative for COVID19 (SARS CoV2) by RT-PCR or equivalent method. [facility] Comment on above: Result Comment: This test was developed and its performance characteristics determined by [facility] [place]. This test has been authorized by FDA under an Emergency Use Authorization (EUA). This test has been validated in accordance with the FDA's Guidance Document Policy for Diagnostics Testing in Laboratories Certified to Perform High Complexity Testing under CLIA prior to Emergency use Authorization for Coronavirus Disease 2019 during the Public Health Emergency issued on September 27, 2019. Test performed by [facility], [facility] [place], [facility] [place] [id number]. Performed By: #### H CCOVD ####[address] [address] [phone] APTTon 02-23-2021 aPTT Coag (Bld) [Time] 22.7 s Low 23.0-32.4 [facility] Comment on above: Result Comment: Unfr actionated Heparin Therapeutic Ranges: Standard Heparin Nomogram: 53 to 78 seconds (anti-Xa level of 0.3 to 0.7 U/ml) Low Dose/ACS Nomogram: 49 to 67 seconds (anti-Xa level of 0.2 to 0.5 U/ml) Stroke Treatment Nomogram: 49 to 67 seconds (anti-Xa level of 0.2 to 0.5 U/ml) Note: The APTT therapeutic range has been determined for the current lot of laboratory APTT reagent in use throughout the [facility]. Performed By: #### P T, PTT ####[place] [address], [place] [phone] CBC and Differentialon 02-23 Abs Baso 0.05 k/uL Normal <0.11 [facility] Comment on above: Performed By: #### P T, PTT ####[place] [address] [place], [place] [phone] Abs [place] 0.73 k/uL Normal <0.87 [facility] Comment on above: Performed By: #### P T, PTT ####[place] [address] [place] [phone] Abs Neut 3.93 k/uL Normal 1.45-7.50 [facility] Comment on above: Performed By: #### P T, PTT ####[place] [address] [place], [place] [phone] Absolute nRBC <0.01 Normal <0.01 [facility] Comment on above: Performed By: #### P T, PTT ####[place] [address] [place] [phone] Basophils/100 WBC (Bld) 0.8 % Normal [facility] Comment on above: Performed By: #### P T, PTT ####[place] [address] [place], [place] [phone] DTYPE Auto Diff Normal [facility] Comment on above: Performed By: #### P T, PTT ####[place] [address] [place], [place] [phone] Eosinophils (Bld) [#/Vol] 0.27 10*3/uL Normal <0.46 [facility] Comment on above: Performed By: #### P T, PTT ####[place] [address] [place], [place] [phone] Eosinophils/100 WBC (Bld) 4.3 % Normal [facility] Comment on above: Performed By: #### P T, PTT ####[place] [address] [place], [place] [phone] Erythrocyte distribution width (RBC) [Ratio] 13.3 % Normal 11.5-15.0 [facility] Comment on above: Performed By: #### P T, PTT ####[place] [address] [place], [place] [phone] Hematocrit (Bld) [Volume fraction] 40.5 % Normal 36.0-46.0 [facility] Comment on above: Performed By: #### P T, PTT ####[place] [address] [place], [place] [phone] Hemoglobin (Bld) [Mass/Vol] 13.6 g/dL Normal 11.5-15.5 [facility] Comment on above: Performed By: #### P T, PTT ####[place] [address] [place], [place] [phone] Lymphocytes (Bld) [#/Vol] 1.35 10*3/uL Normal 1.00-4.00 [facility] Comment on above: Performed By: #### P T, PTT ####[place] [address], [place] [phone] Lymphocytes/100 WBC (Bld) 21.3 % Normal [facility] Comment on above: Performed By: #### P T, PTT ####[place] [address] [place], [place] [phone] MCH 30.5 pG Normal 26.0-34.0 [facility] Comment on above: Performed By: #### P T, PTT ####[place] [address] [place], [place] [phone] MCHC (RBC) [Mass/Vol] 33.6 g/dL Normal 30.5-36.0 [facility] Comment on above: Performed By: #### P T, PTT ####[place] [address], [place] [phone] MCV (RBC) [Entitic vol] 90.8 fL Normal 80.0-100.0 [facility] Comment on above: Performed By: #### P T, PTT ####[place] [address], [place] [phone] Monocytes/100 WBC (Bld) 11.5 % Normal [facility] Comment on above: Performed By: #### P T, PTT ####[place] [address], [place] [phone] Neutrophils/100 WBC (Bld) 62.1 % Normal [facility] Comment on above: Performed By: #### P T, PTT ####[place] [address] [place], [place] [phone] NRBCs 0.0 /100 WBC Normal 0 [facility] Comment on above: Performed By: #### P T, PTT ####[place] [address] [place], [place] [phone] Platelet mean volume (Bld) [Entitic vol] 9.8 fL Normal 9.0-12.7 [facility] Comment on above: Performed By: #### P T, PTT ####[place] [address], [place] [phone] Platelets (Bld) [#/Vol] 235 10*3/uL Normal 150-400 [facility] Comment on above: Performed By: #### P T, PTT ####[place] [address], [place] [phone] RBC (Bld) [#/Vol] 4.46 10*6/uL Normal 3.90-5.20 [facility] Comment on above: Performed By: #### P T, PTT ####[place] [address], [place] [phone] WBC (Bld) [#/Vol] 6.35 10*3/uL Normal 3.70-11.00 [facility] Comment on above: Performed By: #### P T, PTT ####[facility] [address] [place]pezSte[place], [place] [phone] Alfredo 02-23-2021 CNPN Telephone (PANEWO) KORIN HARPER ([id number]) 1950 F Date Time Provider Department 02/23/21 LISA OTERO During your visit today, we recorded the following information about you: Hattie Kauffman Ma 02/23/2021 4:43 PM Signed Request for most recent HgBA1C faxed to Dr. Tavarez at [phone] Hattie Kauffman Ma 02/24/2021 11:40 AM Signed Received and scanned into finalsite. Hattie Kauffman Ma Allergies As of Date: 02/23/2021 Noted Allergy Reaction cat scan dye [Other] 01/09/2006 5 - Intolerance Comments: passed out and numbness (IV) Patient ok if pre medicated LEVAQUIN (LEVOFLOXACIN) 01/31/2007 5 - Intolerance Comments: doesn't work NIACIN 02/17/2008 5 - Intolerance SULFA (SULFONAMIDE ANTIBIOTICS) 01/21/2009 Comments: yeast infection VICODIN (HYDROCODONE-ACETAMI NOPHE*01/31/2007 9 - Itching Date Reviewed: 02/23/2021 Reviewed by: Lisa Otero APRN.PROFILING MACHINE SETUP OPERATOR - Fully Assessed Reason for Visit: Request Outside Medical Records [[id number]] Prescriptions as of 02/24/2021 - metFORMIN (GLUCOPHAGE) 1,000 mg tablet Take 500 mg by mouth twice daily. - amLODIPine (NORVASC) 5 mg tablet Take 5 mg by mouth once daily. - gabapentin (NEURONTIN) 300 mg capsule Take 300 mg by mouth twice daily. - nabumetone (RELAFEN) 750 mg tablet Take 750 mg by mouth twice daily. - omeprazole (PRILOSEC) 40 mg capsule Take 40 mg by mouth once daily. - METHENAMINE HIPPURATE ORAL Take 1 g by mouth twice daily. - CALCIUM-MAGNESIUM ORAL Take by mouth once daily. Aissatou/mag 2000 mg/600 mg - colestipol (COLESTID) 1 gram tablet Take 1 g by mouth twice daily. - clopidogrel (PLAVIX) 75 mg tablet Take 75 mg by mouth once daily. - isosorbide mononitrate ER (IMDUR) 30 mg 24 hr tablet Take 30 mg by mouth once daily. - allopurinol (ZYLOPRIM) 100 mg tablet Take 100 mg by mouth once daily. - estradiol (ESTRACE) 0.01 % (0.1 mg/gram) vaginal cream Use small amount at vaginal opening 1-2 times per week. - Aspirin 81 mg tab Take 81 mg by mouth. - rosuvastatin calcium(CRESTOR 20 MG TAB) Take one(2) tablet at bedtime. - metoprolol tartrate(LOPRESSOR 50 MG TAB) Take one(1) tablet twice daily. - calcium carbonate/vitamin d3(CALCIUM 600 + D(3) 600 MG (1,500)-200 UNIT TAB) Take one(1) tablet daily. - levothyroxine sodium(SYNTHROID 100 MCG TAB) Take one(1) tablet daily. Problem List As Of Date 02/23/2021 Noted Resolved ATROPHIC VAGINITIS [N95.2] 01/10/2006 CHRONIC CYSTITIS NEC [N30.20] 02/22/2006 Blood in stool [K92.1] 05/11/2009 02/23/2021 Hypercholesteremia [E78.00] 06/02/2013 PVC (premature ventricular contraction) [I49.3] 06/02/2013 Hypothyroid [E03.9] 06/02/2013 Arteriosclerosis of coronary artery [I25.10] 11/30/2011 Gastroesophageal reflux disease [K21.9] 09/03/2014 Hypertension [I10] 06/03/2015 Type 2 diabetes mellitus (HCC) [E11.9] 03/02/2016 Ventricular premature beats [I49.3] 06/07/2012 TOYIN (obstructive sleep apnea) [G47.33] 02/23/2021 Frequent UTI [N39.0] 02/23/2021 Class 1 obesity due to excess calories with ser*02/23/2021 Encounter Status:Closed by HATTIE KAUFFMAN MA on 02/24/21 Normal [facility] Comp Metabolic Panelon 02-23 Albumin [Mass/Vol] 4.7 g/dL Normal 3.9-4.9 [facility] Comment on above: Performed By: #### P T, PTT ####[facility]West [place], [place] [phone] ALP [Catalytic activity/Vol] 69 U/L Normal 34-123 [facility] Comment on above: Performed By: #### P T, PTT ####[facility] [place], [place] [phone] ALT [Catalytic activity/Vol] 29 U/L Normal 7-38 [facility] Comment on above: Performed By: #### P T, PTT ####[facility] [place], [place] [phone] Anion gap [Moles/Vol] 10 mmol/L Normal 9-18 [facility] Comment on above: Performed By: #### P T, PTT ####[facility] [place], [place] [phone] AST [Catalytic activity/Vol] 30 U/L Normal 13-35 [facility] Comment on above: Performed By: #### P T, PTT ####[facility] [place], [place] [phone] Bilirubin [Mass/Vol] 0.3 mg/dL Normal 0.2-1.3 [facility] [place] [facility] Comment on above: Performed By: #### P T, PTT ####[facility] [place], [place] [phone] Calcium [Mass/Vol] 10.1 mg/dL Normal 8.5-10.2 [facility] Comment on above: Performed By: #### P T, PTT ####[facility] [place], [place] [phone] Chloride [Moles/Vol] 103 mmol/L Normal 97-105 [facility] [place] [facility] Comment on above: Performed By: #### P T, PTT ####[place] [address] [place] [phone] CO2 [Moles/Vol] 22 mmol/L Normal 22-30 [facility] Comment on above: Performed By: #### P T, PTT ####[place] [address] [place] [phone] Creatinine [Mass/Vol] 0.88 mg/dL Normal 0.58-0.96 [facility] Comment on above: Performed By: #### P T, PTT ####[place] [address] [place] [phone] eGFR- Amer. >60 Normal [facility] Comment on above: Performed By: #### P T, PTT ####[place] [address] [place] [phone] eGFR-All Other Races >60 Normal [facility] [place] [facility] Comment on above: Result Comment: eGFR (Estimated GFR) Units of measure: mL/min/1.73 meters squared eGFR is derived from the reexpressed MDRD Study equation using the following parameters: serum creatinine, age, gender and race. The creatinine assay has been calibrated to be traceable to IDMS. An eGFR <60 mL/min/1.73m2 for >3 months is consistent with chronic kidney disease. Refer to KDOQI guidelines for clinical interpretation. In patients with unstable renal function, e.g. those with acute kidney injury, the eGFR may not accurately reflect actual GFR. Performed By: #### P T, PTT ####[facility] [place], [place] [phone] Glucose [Mass/Vol] 107 mg/dL High 74-99 [facility] Comment on above: Result Comment: The [place] Diabetes [employer] (ADA) provides guidance for cutoff values for fasting glucose and random glucose. The ADA defines fasting as no caloric intake for at least 8 hours. Fasting plasma glucose results between 100 to 125 mg/dL indicate increased risk for diabetes (prediabetes). Fasting plasma glucose results greater than or equal to 126 mg/dL meet the criteria for diagnosis of diabetes. In the absence of unequivocal hyperglycemia, results should be confirmed by repeat testing. In a patient with classic symptoms of hyperglycemia or hyperglycemic crisis, random plasma glucose results greater than or equal to 200 mg/dL meet the criteria for diagnosis of diabetes. Reference: Standards of Medical Care in Diabetes 2016, [place] [employer]. Diabetes Care. 2016.39(Suppl 1). Performed By: #### P T, PTT ####[address] [phone] Potassium [Moles/Vol] 4.9 mmol/L Normal 3.7-5.1 [facility] Comment on above: Performed By: #### P T, PTT ####[address] [phone] Protein [Mass/Vol] 6.9 g/dL Normal 6.3-8.0 [facility] Comment on above: Performed By: #### P T, PTT ####[facility] [place] [address] [phone] Sodium [Moles/Vol] 135 mmol/L Low 136-144 [facility] Comment on above: Performed By: #### P T, PTT ####[address] [phone] Urea nitrogen [Mass/Vol] 17 mg/dL Normal 7-21 [facility] Comment on above: Performed By: #### P T, PTT ####[address] [phone] Confirm Blood Typeon 28-2 021 ABO/RH(D) Negative Normal [facility] Comment on above: Performed By: #### C ONABO #### [facility] [address] [place] [id number] HISTORY PHYSICALon HISTORY PHYSICAL HNO ID: [id number] Author: Lisa Otero APRN.MILTON Service: ? Author Type: Nurse Practitioner Type: HANDP Filed: 02/28/2021 3:03 PM Note Text: HISTORY AND PHYSICAL EXAMINATION SERVICE DATE: 02/23/2021 SERVICE TIME: 1:09 PM PRIMARY CARE PHYSICIAN: Galina Tavarez DO, DO REASON FOR VISIT: Korin Harper is a 70 year old female who is scheduled for Procedure(s): SUTURE REPAIR GLUTEUS MEDIUS (Right) at the request of Dr. Christina Fischer for consultation. My final recommendation will be communicated back to the requesting physician by way of shared medical record or letter. Subjective The patient has the following: ACTIVE PROBLEM LIST Postmenopausal Atrophic Vaginitis Other Chronic Cystitis Hypercholesteremia Pvc (Premature Ventricular Contraction) Hypothyroid Arteriosclerosis of Coronary Artery Gastroesophageal Reflux Disease Hypertension Type 2 Diabetes Mellitus (Hcc) Ventricular Premature Beats Toyin (Obstructive Sleep Apnea) Frequent Uti Class 1 Obesity Due to Excess Calories With Serious Comorbidity and Body Mass Index (Bmi) of 34.0 to 34.9 in Adult CHIEF COMPLAINT: Pre-op exam HPI: DK is a 70 yo seen for PAC due to scheduled above surgery because of right gluteus tear. 01/03/2021 Dr. Fischer HPI: Korin Harper is a 70 year old female seen with a 5 years history of right hip pain, worse over last year since surgery. The onset of pain has been acute on chronic, and the pain is worsening. The pain primarily localizes: right groin pain and right buttock pain. ? PAIN EVALUATION ? 01/03/2021 0802 ? Pain Level: 7 ? Description: Pressure Ulcer/Injury;Dull ? ? stinging ? Duration Amount of Time: 1 ? Duration Units: Years ? Frequency: Continuous ? ? ? The patient denies preceding traumatic injury. The patient does have pain with weight-bearing. The patient does have pain at night. The patient has difficulty with placing shoes and socks. The pain is exacerbated with ADL's, low chairs, managing stairs, pivoting, prolonged sitting, prolonged standing, recreational activities, shoes and socks, squatting and walking. She denies numbness, tingling, or electric shocks.? She reports instability, buckling and giving way. ? Alleviating factors: Sitting ? Prior pertinent orthopedic surgery: Right hip open removal of calcification ? Prior interventions: Physical therapy: Yes Bracing: No Assistive devise: cane Pain medications: Ibuprofen REVIEW OF SYSTEMS: General: No weight loss, malaise or fevers. Neurological: No history of TIA's, stroke, INTERIOR WIRER tumor, impaired sensorium, hemiplegia, paraplegia or quadraplegia. No neurological symptoms or problems. Respiratory: Positive for: obstructive sleep apnea (pending sleep study Sunday02/28/2021). Negative for: asthma, COPD, pneumonia within 6 weeks, tobacco use and URI < 2 weeks. Cardiovascular: Positive for: anticoagulation therapy, CAD, hyperlipidemia (on rx) and hypertension (on rx) Patient's last office visit with outside collectorAnup, The following tests and/or procedures were performed: cardiac stents. Negative for: arrhythmia, atrial fibrillation, chest pain, CHF, congenital heart defect and DVT/PE. GI: Positive for: GERD (on rx) Negative for: abdominal pain, difficulty swallowing, irritable bowel syndrome, inflammatory bowel disease, liver disease, nausea, vomiting and ETOH >2 drinks/day. : Positive for: urinary tract infection (frequent, on prophylatic atb, following [facility]). Negative for: urinary incontinence, nephrolithiasis and renal failure. MATERIALS DIRECTOR: Negative for abnormal vaginal bleeding, abnormal vaginal discharge. Endocrine: Positive for: diabetes mellitus and hypothyroidism (on rx). Patient's diabetes mellitus is controlled by oral agents. Hematology: Positive for: chronic anti-coagulation/pushpa telet meds. Patient is on anti-coagulation/pushpa telet medication(s): Plavix and Aspirin. Negative for: anemia, bruises/bleeds easily and transfusion of at least 4 units within 72 hours prior to surgery. Oncology: No history of CA metastasis, chemo within 30 days, or radiotherapy within 90 days. No history of oncological symptoms or problems. Psych: No history of psychiatric symptoms or problems. Musculoskeletal: SEE HPI Positive for: back pain (DDD, lumbar). Skin: Negative for lesions, rash and itching. PAST MEDICAL HISTORY Diagnosis Date - Diabetes type 2, controlled (HCC) - Heart disease, unspecified 05/07/[address] Vo - Hemorrhage of gastrointestinal tract, unspecified - Irritable bowel syndrome Irritable bowel, sees Dr. Avila - Osteoarthrosis, unspecified whether generalized or localized, other specified sites sees Dr. Mon - Recurrent UTI Salmonella, sees Dr. Rodriguez - Unspecified hypothyroidism PAST SURGICAL HISTORY Procedure Laterality Date - ABRAS SINGLE LESION right ankle - DELIVERY ONLY C-secti (more content not included)... Normal [facility] Protimeon 02-23-2021 PT INR 1.0 Normal 0.9-1.3 [facility] Comment on above: Result Comment: Brooke min K Antagonist (VKA) Therapeutic Range: INR 2 to 3 (Target INR of 2.5) Note: For patients treated with VKA drugs, such as warfarin, the [place] [employer] 2012 Guideline recommends a therapeutic INR range of 2 to 3 (target INR of 2.5). This recommendation includes high-risk patients with antiphospholipid syndrome with previous arterial or venous thromboembolism, current-generation mechanical or bioprosthetic aortic heart valve replacement. Note: Patients with mechanical aortic valve replacement and additional risk factors for thromboembolic events (atrial fibrillation, previous thromboembolism, LV dysfunction, hypercoagulable conditions) or an older generation mechanical AVR (i.e., ball in-Cage) or any mechanical MVR should have a INR therapeutic range of 2.5 to 3.5 (target INR of 3). Rupert RODGERS, et al. Chest 2012, 141:7S-47S Maria R RA, et al. [facility] 2017, 70: 252-289 Performed By: #### P T, PTT ####[facility] [address] [place], [place] [id number] PT Sec 10.8 sec Normal 9.7-13.0 [facility] Comment on above: Performed By: #### P T, PTT ####[facility] [id number] [place], [place] [phone] Type and SCR (30D)on 021 ABO/RH(D) Negative Normal [facility] Comment on above: Performed By: #### T [id number] #### [facility] [address] [place], [place] [address] Alfredo 01-13-2021 CNPN Telephone (ORQ) KORIN HARPER ([id number]) 1950 F Date Time Provider Department 01/13/21 CHRITSINA FISCHER ORQ During your visit today, we recorded the following information about you: Cate Goodman [facility] 01/13/2021 8:23 AM Signed KORIN HARPER [[id number]]DOS 06/08/21 Procedure: SUTURE REPAIR GLUTEUS MEDIUS Hello teamKorin indicated that she has been cleared by her outside collector to proceed with an earlier DOS. Call back requested to discuss a new DOS Korin Harper Ph. [phone] Thank you EVA Morrison 01/14/2021 8:55 AM Signed Left offering date of 01/19 and 03/09 to move her dos. Left cb for confirmation if a date works for her Cate Goodman Adm 01/14/2021 9:19 AM Signed Al Korin Mojica called to accept the DOS of 03/09. Korin Harper Ph. [phone] Thank you EVA Morrison 01/14/2021 9:21 AM Signed Case msg sent 03/09/21 Allergies As of Date: 01/13/2021 Noted Allergy Reaction cat scan dye [Other] 01/09/2006 5 - Intolerance Comments: passed out and numbness (IV) LEVAQUIN (LEVOFLOXACIN) 01/31/2007 5 - Intolerance Comments: doesn't work NIACIN 02/17/2008 5 - Intolerance SULFA (SULFONAMIDE ANTIBIOTICS) 01/21/2009 Comments: yeast infection VICODIN (HYDROCODONE-ACETAMI NOPHE*01/31/2007 9 - Itching Date Reviewed: 01/03/2021 Reviewed by: Ernie Plasencia - Fully Assessed Reason for Visit: Schedule Surgery [1330] Prescriptions as of 01/13/2021 Sig: METFORMIN ER 500 MG TABLET,EX* Take 500 mg by mouth daily wi* ESTRADIOL 0.01% (0.1 MG/GRAM)* Use small amount at vaginal o* ASPIRIN 81 MG TABLET Take 81 mg by mouth. * CHOLECALCIFEROL (VITAMIN D3) * Take by mouth. * CRESTOR 20 MG TABLET Take one(2) tablet at bedtime. * LOPRESSOR 50 MG TABLET Take one(1) tablet twice win* * CALCIUM 600 + D(3) 600 MG (1,* Take one(1) tablet daily. * SYNTHROID 100 MCG TABLET Take one(1) tablet daily. * MOBIC 7.5 MG TABLET Take 1 or 2 tabs daily * MAGNESIUM 100 MG CAPSULE as necessary Problem List As Of Date 01/13/2021 Noted Resolved ATROPHIC VAGINITIS [N95.2] 01/10/2006 CHRONIC CYSTITIS NEC [N30.20] 02/22/2006 Blood in Stool [K92.1] 05/11/2009 Hypercholesteremia [E78.00] 06/02/2013 Irregular heart beat [I49.9] 06/02/2013 Hypothyroid [E03.9] 06/02/2013 Encounter Status:Closed by GALINA HUITRON on 01/14/21 [facility] 01-12-2021 [facility] Telephone (ORQ) KORIN HARPER ([id number]) 1950 F Date Time Provider Department 01/12/21 CHRISTINA FISCHER ORQ During your visit today, we recorded the following information about you: Cate Goodman Adm 01/12/2021 11:14 AM Signed KORIN HARPER [[id number]] Korin Naylor would like some detailed information regarding the type of surgery she is to have for her local outside collector. Call back requested for further discussion. Korin Harper Ph. [phone] P.S. I did mention that normally that information is included in her surgical package she will receive from Dr. Fischer. Thank you Cate Galina Aris, MEDICAL SERVICES COORDINATOR 01/12/2021 11:51 AM Signed Spoke with pt, discussed card clearance for upcoming DOS. Will mail her surgical packet to take to her outside collector on procedure as she is trying to get sooner DOS. Will mail this week Allergies As of Date: 01/12/2021 Noted Allergy Reaction cat scan dye [Other] 01/09/2006 5 - Intolerance Comments: passed out and numbness (IV) LEVAQUIN (LEVOFLOXACIN) 01/31/2007 5 - Intolerance Comments: doesn't work NIACIN 02/17/2008 5 - Intolerance SULFA (SULFONAMIDE ANTIBIOTICS) 01/21/2009 Comments: yeast infection VICODIN (HYDROCODONE-ACETAMI NOPHE*01/31/2007 9 - Itching Date Reviewed: 01/03/2021 Reviewed by: Ernie Plsaencia - Fully Assessed Reason for Visit: Patient Question [1477] Prescriptions as of 01/12/2021 Sig: METFORMIN ER 500 MG TABLET,EX* Take 500 mg by mouth daily wi* ESTRADIOL 0.01% (0.1 MG/GRAM)* Use small amount at vaginal o* ASPIRIN 81 MG TABLET Take 81 mg by mouth. * CHOLECALCIFEROL (VITAMIN D3) * Take by mouth. * CRESTOR 20 MG TABLET Take one(2) tablet at bedtime. * LOPRESSOR 50 MG TABLET Take one(1) tablet twice win* * CALCIUM 600 + D(3) 600 MG (1,* Take one(1) tablet daily. * SYNTHROID 100 MCG TABLET Take one(1) tablet daily. * MOBIC 7.5 MG TABLET Take 1 or 2 tabs daily * MAGNESIUM 100 MG CAPSULE as necessary Problem List As Of Date 01/12/2021 Noted Resolved ATROPHIC VAGINITIS [N95.2] 01/10/2006 CHRONIC CYSTITIS NEC [N30.20] 02/22/2006 Blood in Stool [K92.1] 05/11/2009 Hypercholesteremia [E78.00] 06/02/2013 Irregular heart beat [I49.9] 06/02/2013 Hypothyroid [E03.9] 06/02/2013 Encounter Status:Closed by GALINA HUITRON on 01/12/21 [facility] Alfredo 01-07-2021 CNPN Telephone (ORQ) KORIN HARPER ([id number]) 1950 F Date Time Provider Department 01/07/21 CHRISTINA FISCHER ORQ During your visit today, we recorded the following information about you: Anisha Benson Pss 01/07/2021 10:44 AM [facility] is asking for a call from Dereje rep The patient need adjustments to the brace, patient spouse expressed the brace is too long. Galina or Pradeep do we have a contact for Dereje? Please advise Galina EVA Huitron 01/07/2021 2:48 PM Signed Spoke with pt, let her know with a OS in May she cannot get card clearance this far from DOS. She had stent in May and typically the wait is one year for elective procedures after stent d/t anticoag therapies. Her outside collector is not [facility] it is [facility] I told her wee cannot get info form them HIPPA she must as k them to fax info to our office and again it is too far form DOS to clear her for proceudre Allergies As of Date: 01/07/2021 Noted Allergy Reaction cat scan dye [Other] 01/09/2006 5 - Intolerance Comments: passed out and numbness (IV) LEVAQUIN (LEVOFLOXACIN) 01/31/2007 5 - Intolerance Comments: doesn't work NIACIN 02/17/2008 5 - Intolerance SULFA (SULFONAMIDE ANTIBIOTICS) 01/21/2009 Comments: yeast infection VICODIN (HYDROCODONE-ACETAMI NOPHE*01/31/2007 9 - Itching Date Reviewed: 01/03/2021 Reviewed by: Ernie Plasencia - Fully Assessed Reason for Visit: Patient Request [0486] Prescriptions as of 01/07/2021 Sig: METFORMIN ER 500 MG TABLET,EX* Take 500 mg by mouth daily wi* ESTRADIOL 0.01% (0.1 MG/GRAM)* Use small amount at vaginal o* ASPIRIN 81 MG TABLET Take 81 mg by mouth. * CHOLECALCIFEROL (VITAMIN D3) * Take by mouth. * CRESTOR 20 MG TABLET Take one(2) tablet at bedtime. * LOPRESSOR 50 MG TABLET Take one(1) tablet twice win* * CALCIUM 600 + D(3) 600 MG (1,* Take one(1) tablet daily. * SYNTHROID 100 MCG TABLET Take one(1) tablet daily. * MOBIC 7.5 MG TABLET Take 1 or 2 tabs daily * MAGNESIUM 100 MG CAPSULE as necessary Problem List As Of Date 01/07/2021 Noted Resolved ATROPHIC VAGINITIS [N95.2] 01/10/2006 CHRONIC CYSTITIS NEC [N30.20] 02/22/2006 Blood in Stool [K92.1] 05/11/2009 Hypercholesteremia [E78.00] 06/02/2013 Irregular heart beat [I49.9] 06/02/2013 Hypothyroid [E03.9] 06/02/2013 Encounter Status:Closed by GALINA HUITRON on 01/07/21 [facility] CNOVon 01-03-2021 CNOV Office Visit (CORKYMN) KORIN HARPER ([id number]) 1950 F Date Time Provider Department 01/03/21 8:30 AM CHRISTINA FISCHER During your visit today, we recorded the following information about you: Weight 84.4 kg Christina Fischer MD 01/03/2021 8:59 AM Signed Patient: Korin Harper : 1950 Providers Referring [...] low cervical - COLONOSCOP W/ OR W/O [facility] SPEC normal colonscopy, few diverticula - COLONOSCOPY [...] Review of Systems: Reviewed and charted into finalsite. Physical Exam: PE reveals a female with the following v (more content not included)... Normal [facility] HOSPon 01-03-2021 HOSP Patient:Korin Harper MRN: Height:5' 1 (1.549 m) Weight:185 lb (83.915 kg) Outpatient Medications as of 03/09/21: metFORMIN (GLUCOPHAGE) 1,000 mg tablet amLODIPine (NORVASC) 5 mg tablet gabapentin (NEURONTIN) 300 mg capsule nabumetone (RELAFEN) 750 mg tablet omeprazole (PRILOSEC) 40 mg capsule METHENAMINE HIPPURATE ORAL CALCIUM-MAGNESIUM ORAL colestipol (COLESTID) 1 gram tablet clopidogrel (PLAVIX) 75 mg tablet isosorbide mononitrate ER (IMDUR) 30 mg 24 hr tablet allopurinol (ZYLOPRIM) 100 mg tablet estradiol (ESTRACE) 0.01 % (0.1 mg/gram) vaginal cream Aspirin 81 mg tab rosuvastatin calcium(CRESTOR 20 MG TAB) metoprolol tartrate(LOPRESSOR 50 MG TAB) calcium carbonate/vitamin d3(CALCIUM 600 + D(3) 600 MG (1,500)-200 UNIT TAB) levothyroxine sodium(SYNTHROID 100 MCG TAB) Admission/Clinic Administered Medications as of 03/09/21: lidocaine (PF) 10 mg/mL (1 %) 1-2 mg injection (XYLOCAINE) lactated ringers iv infusion ceFAZolin iv piggyback 2 g in D5W (iso-osmotic) 100 mL (ANCEF) Problem List: Postmenopausal atrophic vaginitis [N95.2] Other chronic cystitis [N30.20] Hypercholesteremia [E78.00] PVC (premature ventricular contraction) [I49.3] Hypothyroid [E03.9] Arteriosclerosis of coronary artery [I25.10] Gastroesophageal reflux disease [K21.9] Hypertension [I10] Type 2 diabetes mellitus (HCC) [E11.9] Ventricular premature beats [I49.3] TOYIN (obstructive sleep apnea) [G47.33] Frequent UTI [N39.0] Class 1 obesity due to excess calories with serious comorbidity and body mass index (BMI) of 34.0 to 34.9 in adult [E66.09, Z68.34] Allergies: cat scan dye [Other] Levaquin [Levofloxacin] Niacin Sulfa (Sulfonamide Antibiotics) Vicodin [Hydrocodone-Acetami nophen] Date Verified: 03/09/21 Lab Values Lab Value Units Date High Low POTA* 4.9 mmol/L 02/23/2021 5.1 3.7 LUCI* 40.5 % 02/23/2021 46.0 36.0 Progress Notes (UROL [facility] WSTR): Hattie Rodasradha Costa 03/08/2021 11:29 AM Signed Patient has been holding plavix since 03/02/21. She states that her outside collector approved. Waiting for Clearance letter from [facility]. Once received, will scan in. Hattie Kauffman Ma Hattie Henley Carrie Costa 03/08/2021 12:24 PM Signed Clearance letter received. Scanned into Epic. Hattie Kauffman Ma Progress Notes ([facility]): Cate Rex Adm 03/07/2021 4:04 PM Signed Korin Harper DOS 03/09/21 Procedure: SUTURE REPAIR GLUTEUS MEDIUS Hello team, Please call Korin she has questions about her current med's to control her BP she should or shouldn't be taking prior to her DOS s is taking to control her BP. Korin Harper Ph. [phone] Thank you EVA Loving 03/07/2021 4:22 PM Signed Spoke with pt she was at PCP and card today and they asked whey she can take metoprolol moring of surgery but didn't mention to take there amlodipine, She is asking if she is to take amlodipine morning of surgery as well. Please advise EVA Morrison 03/08/2021 9:36 AM Signed Spoke with pt, let her know she can take amlodipine with morning meds DOS she then asked about her antacid, I asked that she hold that the morning of surgery. She agreed and understood. Normal [facility] XR HIP 3V PELV+ AP/LAT RTon 12-31-2020 XR HIP 3V PELV+ AP/LAT RT * * *Final Report* * * DATE OF EXAM: Dec 31 2020 10:45AM WRX [id number] - XR HIP 3V PELV+ AP/LAT RT / PROCEDURE REASON: Pain * * * * Physician Interpretation * * * * EXAMINATION: XR HIP 3V PELV+ AP/LAT RT HISTORY: Hx of prior surgery, chronic diffuse right hip pain. TECHNIQUE: XR HIP 3V PELV+ AP/LAT RT Laterality: RIGHT Number of different views (projections): 3 M: XB_1 COMPARISON: Comparison is made to prior MRI dated 11/02/2020 RESULT: Supine radiograph of the pelvis as well as AP and frogleg views of the right hip demonstrate the visualized bony pelvic ring intact with enthesopathic degenerative change. The hips are bilaterally symmetric with mild degenerative axial joint space narrowing. Postsurgical changes of the right greater and lesser trochanters are present. There is no acute bony process. The soft tissues are unremarkable. IMPRESSION: 1. No acute bony process. 2. Degenerative and postsurgical changes as detailed in report. Deputy Attorney General: PSCB Transcribe Date/Time: Dec 31 2020 12:35P Dictated by : JUAN REYNA MD This examination was interpreted and the report reviewed and electronically signed by: JUAN REYNA MD on Dec 31 2020 12:38PM EST [id number] Normal [facility] MRI HIP WO IVCON RTon 2020 MRI HIP WO IVCON RT * * *Final Report* * * DATE OF EXAM: Nov 02 2020 6:27PM [facility] 0207 - MRI HIP WO IVCON RT / PROCEDURE REASON: throchanteric bursitis right hip * * * * Physician Interpretation * * * * EXAMINATION: MRI HIP WO IVCON RT HISTORY: throchanteric bursitis right hip. TECHNIQUE: MRI HIP WO IVCON RT COMPARISON: RESULT: Bone Marrow: No marrow replacing process or acute fracture. Hip Joint(s): Mild to moderate acetabular labral degeneration with acetabular bony reactive changes and adjacent chondral loss. No discrete tear seen. No avascular necrosis of the femoral head. Tendons: Postoperative changes at the distal gluteus minimus and medius tendons which are torn away from the greater trochanteric attachment with the exception of the posterior superior aspect of the gluteus medias tendon. Small amount of fluid overlying the anterior lateral facets of the greater trochanter deep to the postoperative changes. There is an overlying operative tract. Mild bilateral hamstring origin tendinosis. Tendons around the right hip appear otherwise intact. Musculature: Severe atrophic change and severe fatty replacement throughout the gluteus minimus and medius musculature. No acute muscle injury seen. Sacroiliac joints: Maintained with normal signal. Pubic symphysis: Mild degenerative change. Ischiofemoral Space: Maintained with normal signal. Other Pelvic Findings: No enlarged pelvic lymph nodes or abnormal pelvic fluid. IMPRESSION: CHRONIC GLUTEUS MEDIUS AND MINIMUS TENDON TEARS WITH ASSOCIATED SEVERE MUSCLE ATROPHY AND FATTY REPLACEMENT. MILD RIGHT HIP DEGENERATIVE CHANGE. Deputy Attorney General: YAMEL Transcribe Date/Time: Nov 02 2020 6:35P Dictated by : JEEVAN LERNER MD This examination was interpreted and the report reviewed and electronically signed by: JEEVAN LERNER MD on Nov 02 2020 6:44PM EST [id number] CN Normal [facility] Lab Report: Basic Metabolic Profile (BMP)on 08-31-2017 Anion gap 8 mmol/L Invalid Interpretation Code 5-15 [facility] Work Phone: BUN/Creatinine Ratio 21.7 RATIO High 10-20 [facility] Work Phone: Calcium 8.7 mg/dL Invalid Interpretation Code 8.5-10.1 [facility] Work Phone: Chloride 107 mmol/L Invalid Interpretation Code 98-107 [facility] Work Phone: CO2 26.0 mmol/L Invalid Interpretation Code 21.0-32.0 [facility] Work Phone: Creatinine 0.92 mg/dL Invalid Interpretation Code 0.55-1.02 [facility] Work Phone: eGFR (non-black) 78 mL/min/{1.73_m2} Invalid Interpretation Code >60 [facility] Work Phone: eGFR (non-black) 65 mL/min/{1.73_m2} Invalid Interpretation Code >60 [facility] Work Phone: Glucose 150 mg/dL High 74-106 [facility] Work Phone: Potassium 4.3 mmol/L Invalid Interpretation Code 3.5-5.1 [facility] Work Phone: Sodium 141 mmol/L Invalid Interpretation Code 136-145 [facility] Work Phone: Urea nitrogen 20 mg/dL High 7-18 [facility] Work Phone: Lab Report: CBC W/Diff, Auto matedon 08-31-2017 Basophils/100 leukocytes 0.3 % Invalid Interpretation Code 0-1 [facility] Work Phone: Eosinophils/100 leukocytes 2.0 % Invalid Interpretation Code 0-5 [facility] Work Phone: Erythrocytes (RBC) 4.43 10*6/uL Invalid Interpretation Code 4.2-5.4 [facility] Work Phone: Hematocrit (HCT) 41.2 % Invalid Interpretation Code 37-47 [facility] Work Phone: Hemoglobin (HGB) 13.6 g/dL Invalid Interpretation Code 12.0-15.0 [facility] Work Phone: immature granulocytes, percentage of total cells, blood 0.400 % Invalid Interpretation Code 0.0-0.9 [facility] Work Phone: Lymphocytes 1.55 X10 3/UL Invalid Interpretation Code 0.83-4.51 [facility] Work Phone: Lymphocytes/100 leukocytes 22.6 % Invalid Interpretation Code 19-41 [facility] Work Phone: MCH 30.7 pg Invalid Interpretation Code 27.0-32.0 [facility] Work Phone: MCHC 33.0 G/GL Invalid Interpretation Code 32-36 [facility] Work Phone: MCV 93.0 fL Invalid Interpretation Code 81-99 [facility] Work Phone: Monocytes/100 leukocytes 8.2 % Invalid Interpretation Code 0-10 [facility] Work Phone: neutrophil count, blood 4.6 X10 3/UL Invalid Interpretation Code 2.0-7.7 [facility] Work Phone: Neutrophils/100 leukocytes 66.5 % Invalid Interpretation Code 47-70 [facility] Work Phone: Platelets 213 10*3/mm3 Invalid Interpretation Code 150-450 [facility] Work Phone: PMV by Chiquita 10.3 fL Invalid Interpretation Code 6.2-12.0 [facility] Work Phone: RDW-CA 13.3 % Invalid Interpretation Code 11.6-14.6 [facility] Work Phone: red blood cell distribution width, size density 44.1 fL High 35.1-43.9 [facility] Work Phone: WBC (Leukocytes) 6.9 10*3/uL Invalid Interpretation Code 4.4-11.0 [facility] Work Phone: Lab Report: Troponin-Ion Troponin I ng/mL Invalid Interpretation Code <0.06 [facility] Work Phone: Lab Report: Lipid Profileon 05-23-2017 Cholesterol 165 mg/dL Invalid Interpretation Code 200 [facility] Work Phone: HDL Cholesterol 62 mg/dL Invalid Interpretation Code [employer] Phone: LDL Cholesterol 67 mg/dL Invalid Interpretation Code 0-130 [facility] Work Phone: Triglyceride 181 mg/dL Invalid Interpretation Code [facility] Work Phone: very low density lipoproteins 36 mg/dL Invalid Interpretation Code 5-40 [facility] Work Phone: Lab Report: Liver Profileon 05-23-2017 Alanine aminotransferase (ALT) 35 U/L Invalid Interpretation Code 12-78 [facility] Work Phone: Albumin 4.2 g/dL Invalid Interpretation Code 3.4-5.0 [facility] Work Phone: Alkaline phosphatase (ALP) 60 U/L Invalid Interpretation Code 45-117 [employer] Phone: Aspartate aminotransferase (AST) 19 U/L Invalid Interpretation Code 15-37 [facility] Work Phone: Bilirubin (direct) 0.08 mg/dL Invalid Interpretation Code 0.00-0.30 [facility] Work Phone: Bilirubin (total) 0.50 mg/dL Invalid Interpretation Code 0.20-1.00 [facility] Work Phone: Globulin 3.2 g/dL Invalid Interpretation Code 2.2-4.2 [facility] Work Phone: Protein 7.4 g/dL Invalid Interpretation Code 6.4-8.2 [facility] Work Phone: Office Visit: est annualon 0 03-06-2017 Documentation of current medications (procedure) Done Invalid Interpretation Code [facility] Fall risk assessment No Invalid Interpretation Code [facility] Tobacco smoking status NHIS Never Invalid Interpretation Code [facility] Tobacco smoking status ALIS Tobacco smoking status ALIS Invalid Interpretation Code [facility] Work Phone: Tobacco use [facility] Never smoker Invalid Interpretation Code [facility] Office Visiton 12-07-2016 Documentation of current medications (procedure) Done Invalid Interpretation Code [facility] Work Phone: Fall risk assessment No [facility] Work Phone: Protein mass conc Done [facility] Work Phone: Chart Maintenanceon 12-06-19 17 Left ventricular Ejection fraction 60 % Invalid Interpretation Code [facility] Work Phone: Lab Report: Lipid Profileon 11-07-2016 Cholesterol 144 mg/dL Invalid Interpretation Code 200 [facility] Work Phone: HDL Cholesterol 49 mg/dL Invalid Interpretation Code [facility] Work Phone: LDL Cholesterol 47 mg/dL Invalid Interpretation Code 0-130 [facility] Work Phone: Triglyceride 241 mg/dL High [facility] Work Phone: very low density lipoproteins 48 mg/dL High 5-40 [facility] Work Phone: Lab Report: Liver Profileon 11-07-2016 Alanine aminotransferase (ALT) 35 U/L Invalid Interpretation Code 12-78 [facility] Work Phone: Albumin 4.0 g/dL Invalid Interpretation Code 3.4-5.0 [facility] Work Phone: Alkaline phosphatase (ALP) 60 U/L Invalid Interpretation Code 45-117 [facility] Work Phone: ALP enzyme act/vol (Bld) 60 U/L 45-117 [facility] Work Phone: Aspartate aminotransferase (AST) 26 U/L Invalid Interpretation Code 15-37 [facility] Work Phone: Bilirubin (direct) 0.09 mg/dL Invalid Interpretation Code 0.00-0.30 [facility] Work Phone: Bilirubin (total) 0.60 mg/dL Invalid Interpretation Code 0.20-1.00 [facility] Work Phone: Globulin 2.7 g/dL Invalid Interpretation Code 2.3-3.5 [facility] Work Phone: Globulin mass conc (S) 2.7 g/dL 2.3-3.5 [facility] Work Phone: Protein 6.7 g/dL Invalid Interpretation Code 6.4-8.2 [facility] Work Phone: Chart Maintenanceon 10-13-19 17 Anion gap 10 mmol/L Invalid Interpretation Code [facility] Work Phone: Anion gap molar conc 10 mmol/L [facility] Work Phone: BUN/Creatinine Ratio 25.9 mg/mg Invalid Interpretation Code [facility] Work Phone: Calcium 9.0 mg/dL Invalid Interpretation Code [facility] Work Phone: Chloride 103 mmol/L Invalid Interpretation Code [facility] Work Phone: CO2 27 mmol/L Invalid Interpretation Code [facility] Work Phone: CO2 ppres (BldV) 27 mmol/L [facility] Work Phone: Creatinine 0.73 mg/dL Invalid Interpretation Code [facility] Work Phone: Glucose 105 mg/dL Invalid Interpretation Code [facility] Work Phone: Glucose mass conc 105 mg/dL Invalid Interpretation Code [facility] Work Phone: HbA1c 6.3 % Invalid Interpretation Code [facility] Work Phone: Hematocrit (HCT) 41.8 % Invalid Interpretation Code [facility] Work Phone: Hematocrit Volume Fraction (Bld) 41.8 % [facility] Work Phone: Hemoglobin (HGB) 13.8 g/dL Invalid Interpretation Code [facility] Work Phone: Platelets 203 10*3/mm3 Invalid Interpretation Code [facility] Work Phone: Platelets #/vol (Bld) 203 10*3/mm3 [facility] Work Phone: Potassium 4.2 mmol/L Invalid Interpretation Code [facility] Work Phone: Sodium 140 mmol/L Invalid Interpretation Code [facility] Work Phone: Thyroid stimulating hormone (TSH) 1.95 u[iU]/mL Invalid Interpretation Code [facility] Work Phone: Urea nitrogen 19 mg/dL High [facility] Work Phone: Office Visiton 06-06-2016 Documentation of current medications (procedure) Done Invalid Interpretation Code [facility] Work Phone: Rx Refill: eRx Request for S ynthroid 100mcg Tabon 03-06-2016 e-scripts messenger refill request [id number]`Synthro id 100mcg Tab```30 Each``TKE 1 TABLET BY MOUTH DAILY FOR THYROID IN AM```0`05/04/2015`No date sent`Aaron Engeln*`[id number] `[id number]``LEVOTH YROXINE SODIUM 100 MCG TABLET Quantity: 30 Tablet Instructions: TKE 1 TABLET BY MOUTH DAILY FOR THYROID IN AM [facility] Work Phone: [id number]`Synthro id 100mcg Tab```30 Each``TKE 1 TABLET BY MOUTH DAILY FOR THYROID IN AM```0`05/04/2015`No date sent`Aaron Parker*`[id number] `[id number]``LEVOTH YROXINE SODIUM 100 MCG TABLET Quantity: 30 Tablet Instructions: TKE 1 TABLET BY MOUTH DAILY FOR THYROID IN AM Better [facility] Work Phone: Office Visit: 6 month follow upon 03-02-2016 Dietary management education, guidance, and counseling (procedure) yes Invalid Interpretation Code [facility] Work Phone: Tobacco smoking status NHIS Never [facility] Work Phone: Tobacco smoking status NHIS Never smoker [facility] Work Phone: Tobacco use [facility] Never smoker Invalid Interpretation Code [facility] Work Phone: Microbiology: Culture, Urine on 01-06-2016 [facility] Trimethoprim/Sulfame tho $ <=20 S Invalid Interpretation Code [facility] Work Phone: GE use only - for [employer] import when terms are not otherwise specified Trimethoprim/Sulfame tho $ <=20 S Invalid Interpretation Code [facility] Work Phone: Office Visit: est annualon 0 12-29-2015 Breast Mammogram screening Normal Bilateral Invalid Interpretation Code [facility] Lab Report: CRPon 07-15-2015 C reactive protein (CRP) mg/L Invalid Interpretation Code 0.0-3.0 [employer] Phone: Lab Report: Erythrocyte Sed Rateon 07-15-2015 Erythrocyte sedimentation rate 6 mm/h Invalid Interpretation Code 0-30 [facility] Work Phone: Lab Report: Vitamin B12on Cobalamin (Vitamin B12) mass conc 461 pg/mL Invalid Interpretation Code 08 [facility] Work Phone: vitamin b12, serum 461 pg/mL Invalid Interpretation Code [facility] Work Phone: Lab Report: Basic Metabolic Profile (BMP)on 03-23-2015 eGFR (non-black) 103 mL/min/{1.73_m2} Invalid Interpretation Code >60 [facility] Work Phone: eGFR (non-black) 85 mL/min/{1.73_m2} Invalid Interpretation Code >60 [facility] Work Phone: EST GFR - AA 103 mL/min >60 [facility] Work Phone: Lab Report: Ferritinon 03-23 Ferritin 74 ng/mL Invalid Interpretation Code 8-252 [facility] Work Phone: Lab Report: Ironon 5 Iron 71 ug/dL Invalid Interpretation Code 50-170 [facility] Work Phone: Lab Report: T4 Free Directon 03-23-2015 Thyroxine (T4) free 1.19 ng/dL Invalid Interpretation Code 0.76-1.46 [facility] [employer] Work Phone: External Other: Preferred Me thod of Contacton 01-06-2015 methcontact secmsg Invalid Interpretation Code [facility] Work Phone: Patient's prefered method of contact secmsg Invalid Interpretation Code [facility] Work Phone: [facility] cardiac risk group C Invalid Interpretation Code [facility] [employer] Work Phone: General cardiovascular disease 10Y risk [#] Jairon'Kandice N/A Invalid Interpretation Code [facility] Work Phone: Office Visit: Initial PCP Vi siton 08-03-2014 General categories [interpretation] of Cervical or vaginal smear or scraping by Cyto stain Normal Invalid Interpretation Code [facility] Work Phone: EKG Report: Midmark ECG Obse rvationson 05-27-2014 EKG QRS axis -20 deg Invalid Interpretation Code [facility] Work Phone: electrocardiogram interpretation Sinus Rhythm - Nonspecific T-abnormality . ABNORMAL Invalid Interpretation Code [facility] Work Phone: Interpretation Sinus Rhythm - Nonspecific T-abnormality . ABNORMAL Invalid Interpretation Code [facility] Work Phone: P [place] 45 deg Invalid Interpretation Code [facility] Work Phone: P wave axis, electrocardiogram 45 deg Invalid Interpretation Code [facility] Work Phone: WV Interval 128 ms Invalid Interpretation Code [facility] Work Phone: WV interval, electrocardiogram 128 ms Invalid Interpretation Code [facility] Work Phone: Pulse (Heart Rate) 65 /min Invalid Interpretation Code [facility] Work Phone: Pulse (Heart Rate) 404 ms Invalid Interpretation Code [facility] Work Phone: QRS axis, electrocardiogram -20 deg Invalid Interpretation Code [facility] Work Phone: QRS Duration 92 ms Invalid Interpretation Code [facility] Work Phone: QRS duration, electrocardiogram 92 ms Invalid Interpretation Code [facility] Work Phone: QT Interval new path ms Invalid Interpretation Code [facility] Work Phone: QT interval, electrocardiogram new path ms Invalid Interpretation Code [facility] Work Phone: T Melrose -1 deg Invalid Interpretation Code [facility] Work Phone: T wave axis, electrocardiogram -1 deg Invalid Interpretation Code [facility] Work Phone: Office Visit: Initial PCP Vi siton 04-29-2014 Breast Mammogram screening Normal Bilateral [facility] Work Phone: Clinical Lists Update: Prelo beef breaker 03-13-2014 Erythrocytes (RBC) 4.68 10*6/uL Invalid Interpretation Code [facility] Work Phone: MCH 30.8 pg Invalid Interpretation Code [facility] Work Phone: MCH Entitic mass (RBC) 30.8 pg [facility] Work Phone: MCHC 33.8 g/dL Invalid Interpretation Code [facility] Work Phone: MCHC mass conc (RBC) 33.8 g/dL [facility] Work Phone: MCV 91.0 fL Invalid Interpretation Code [facility] Work Phone: MCV Entitic volume (RBC) 91.0 fL [facility] Work Phone: RBC #/vol (Bld) 4.68 10*6/uL [facility] Work Phone: WBC #/vol (Bld) 7.3 10*3/uL [facility] Work Phone: WBC (Leukocytes) 7.3 10*3/uL Invalid Interpretation Code [facility] Work Phone: Lab Report: MGon 05-30-2012 Magnesium 2.0 mg/dL Normal 1.8-2.4 [facility] Work Phone: Lab Report: PTon 05-30-2012 INR Coag RelTime (PPP) 1.0 {INR} Normal [facility] Work Phone: INR in blood by coagulation 1.0 {INR} Normal [facility] Work Phone: prothrombin time, actual/normal, ratio 12.3 SECONDS Normal 11.9-14.4 [facility] Work Phone: PTP 12.3 SECONDS Normal 11.9-14.4 [facility] Work Phone: Lab Report: PTTon 05-30-2012 aPTT 25.3 s Normal 24.1-36.2 [facility] Work Phone: Lab Report: T4on 08-31-2011 Thyroxine (T4) 11.1 ug/dL Normal 4.8-13.9 [facility] Work Phone: Lab Reporton 08-09-2011 basophils as percent of blood leukocytes, manual count 0.3 % Invalid Interpretation Code [facility] Work Phone: eosinophils as percent of blood leukocytes, manual count 2.5 % Invalid Interpretation Code [facility] Work Phone: Lymphocytes/100 leukocytes 15.9 % Invalid Interpretation Code [facility] Work Phone: Lymphocytes/100 WBC (Bld) 15.9 % [facility] Work Phone: Monocytes/100 leukocytes 7.1 % Invalid Interpretation Code [facility] Work Phone: Monocytes/100 WBC (Bld) 7.1 % [facility] Work Phone: neutrophils, band form as percent of blood leukocytes, manual count 74.2 % Invalid Interpretation Code [facility] Work Phone: Office Visit: Initial PCP [place] 09-27-2008 Colonoscopy (procedure) Colonoscopy (procedure) Invalid Interpretation Code [facility] Work Phone: Protein mass conc Colonoscopy (procedure) [facility] Work Phone: Vital Signs Date Time Vital Sign Value Performing Clinician Facility 03-06-2017 09:15-0400 BMI (Body Mass Index) 33.29 kg/m2 Martha Stewart NP [facility] 03-06-2017 09:15-0400 BP Diastolic 81 mm[Hg] Martha Stewart NP [facility] 03-06-2017 09:15-0400 BP Systolic 132 mm[Hg] Martha Stweart NP [facility] 03-06-2017 09:15-0400 Height 154.94 cm Martha Stewart NP [facility] 03-06-2017 09:15-0400 Pulse (Heart Rate) 78 /min Martha Stewart NP [facility] 03-06-2017 09:15-0400 Respiratory Rate 16 /min Martha Stewart NP [facility] 03-06-2017 09:15-0400 Weight 79.[address] [facility] 12-07-2016 13:25-0400 BMI (Body Mass Index) 32.5 kg/m2 Holly Tan [facility] Work Phone: 12-07-2016 13:25-0400 BP Diastolic 70 mm[Hg] Holly Tan [facility] Work Phone: 12-07-2016 13:25-0400 BP Systolic 120 mm[Hg] Holly Tan [facility] Work Phone: 12-07-2016 13:25-0400 [...] Phone: 03-02-2016 10:32-0400 Pulse Oximetry 98 % [facility] Work Phone: 05-27-2014 16:06-0400 Heart rate 65 /min Holly Tan [facility] Work Phone: 05-27-2014 16:06-0400 Heart rate 404 ms Holly Tan [facility] Work Phone: 08-29-2011 14:51-0500 Height 154.94 cm Elissa Cherry RN [facility] Work Phone: Encounters Encounter Date Encounter Type Care Provider Facility Start: 04-21-2021 End: 04-21-2021 Subsequent hospital visit by physician Xr [facility] [place] Work Phone: Radiology Comment on above: Tear of right gluteu s medius tendon, initial encounter [S76.011A] Start: 11-14-2018 End: 11-14-2018 Emergency department patient visit [facility] Facility:B Procedures Date Procedure Procedure Detail Performing Clinician Start: 04-21-2021 Radex hip unilateral with pelvis 2-3 views Pradeep Castaneda PA-C Work Phone: Start: 02-23-2021 Antibody screen Comment on above: Performed By: #### [id number] #### [facility] [address] [id number] Start: 04-24-2019 Colonoscopy Xr [place] Work Phone: Start: 05-09-2017 End: 05-23-2017 *Hepatic Function Panel Ghazala hess PA-C Work Phone: Start: 05-09-2017 End: 05-23-2017 Lipid 1996 panel - Serum or Plasma Ghazala Fair PA-C Work Phone: Start: 05-09-2017 End: 05-23-2017 *Hepatic Function Panel Ghazala hess PA-C Work Phone: Start: 05-09-2017 End: 05-23-2017 Lipid panel [AGGREGATE] Ghazala hess PA-C Work Phone: Start: 12-07-2016 End: 08-29-2017 Follow Up Appt 9 months Leila Wilson Start: 12-07-2016 End: 08-29-2017 DONTE Hebert MD Start: 10-26-2016 End: 11-07-2016 *Hepatic Function Panel Ghazala hess PA-C Work Phone: Start: 10-26-2016 End: 11-07-2016 Lipid 1996 panel - Serum or Plasma Ghazala Fair PA-C Work Phone: Start: 10-26-2016 End: 11-07-2016 *Hepatic Function Panel Ghazala hess PA-C Work Phone: Start: 10-26-2016 End: 11-07-2016 Lipid panel [AGGREGATE] Ghazala hess PA-C Work Phone: Start: 08-21-2016 End: 08-29-2017 *CBC with Differential Torres Lynne O Work Phone: Start: 08-21-2016 End: 08-29-2017 *CMP Complete Metabolic Panel Torres Amezcua Izzy DO Work Phone: Start: 08-21-2016 End: 08-29-2017 *Microalbumin, Creatine Ratio, rand urine Torres Amezcua Izzy DO Work Phone: Start: 08-21-2016 End: 08-29-2017 HbA1c Torres A Izzy DO Work Phone: Start: 08-21-2016 End: 08-29-2017 Thyroid stimulating hormone (TSH) Torres Amezcua Izzy DO Work Phone: Start: 06-06-2016 End: 06-06-2016 Follow Up Appt 6 months Leila Wilson Start: 06-06-2016 End: 06-06-2016 DONTE Hebert MD Start: 06-06-2016 End: 06-06-2016 Follow Up Appt 6 months Leila Wilson Start: 06-06-2016 End: 06-06-2016 [facility] Sekou Hebert MD Start: 03-21-2016 End: 04-28-2016 *Hepatic Function Panel Ghazala hess PA-C Work Phone: Start: 03-21-2016 End: 04-28-2016 Lipid 1996 panel - Serum or Plasma Ghazala Fair PA-C Work Phone: Start: 03-21-2016 End: 04-28-2016 *Hepatic Function Panel Ghazala hess PA-C Work Phone: Start: 03-21-2016 End: 04-28-2016 Lipid panel [AGGREGATE] Ghazala hess PA-C Work Phone: Start: 03-02-2016 End: 03-02-2016 Hemoglobin glycosylated a1c Torres Magana [employer] Work Phone: Start: 03-02-2016 End: 03-02-2016 Dietary management education, guidance, and counseling Holly Tan Start: 03-02-2016 End: 03-02-2016 HbA1c Torres Magana DO Work Phone: Start: 03-02-2016 End: 03-02-2016 Hemoglobin glycosylated a1c Torres Magana DO Work Phone: Start: 10-13-2015 End: 10-14-2015 Patient referral to dietitian Galina Tavarez DO Work Phone: Start: 09-24-2015 End: 09-25-2015 Patient referral to dietitian Galina Tavarez DO Work Phone: Start: 09-23-2015 End: 10-11-2015 Hemoglobin glycosylated a1c Galina Tavarez DO Work Phone: Start: 09-23-2015 End: 08-29-2017 Chest x-ray Galina Tavarez DO Work Phone: Start: 09-23-2015 End: 10-11-2015 HbA1c Galina Tavarez, DO Work Phone: Start: 09-23-2015 End: 10-11-2015 Hemoglobin glycosylated a1c Galinagoldie Tavarez, DO Work Phone: Start: 09-09-2015 End: 09-21-2015 *Hepatic Function Panel Ghazala hess PA-C Work Phone: Start: 09-09-2015 End: 09-21-2015 Lipid 1996 panel - Serum or Plasma Ghazala Fair PA-C Work Phone: Start: 09-09-2015 End: 09-21-2015 *Hepatic Function Panel Ghazala hess PA-C Work Phone: Start: 09-09-2015 End: 09-21-2015 Lipid panel [AGGREGATE] Ghazala hess PA-C Work Phone: Start: 08-05-2015 End: 09-21-2015 Thyrotropin [Units/volume] in Serum or Plasma Galina Tavarez, DO Work Phone: Start: 08-05-2015 End: 09-21-2015 Thyroid stimulating hormone (TSH) Galina Tavarez, DO Work Phone: Start: 07-15-2015 End: 07-15-2015 C reactive protein [Mass/volume] in Serum or Plasma by High sensitivity method Galina Tavarez, DO Work Phone: Start: 07-15-2015 End: 07-15-2015 Erythrocyte sedimentation rate Galina Goldie Tavarez, DO Work Phone: Start: 07-15-2015 End: 07-15-2015 C reactive protein (hsCRP) Galina Goldie Tavarez, DO Work Phone: Start: 07-15-2015 End: 07-15-2015 Erythrocyte sedimentation rate Galina Goldie Tavarez, DO Work Phone: Start: 07-12-2015 End: 08-29-2017 Ct head/brain w/o dye Galina A Malys, DO Work Phone: Start: 06-15-2015 End: 08-29-2017 Drain/inject, joint/bursa Galina Amezcua Chuyvenkat, DO Work Phone: Start: 06-15-2015 End: 08-29-2017 Kenalog per 10 mg Galina Amezcua Chuyvenkat, DO Work Phone: Start: 06-10-2015 End: 08-29-2017 X-ray exam of shoulder Galina Amezcua Corby DO Work Phone: Start: 06-03-2015 End: 06-04-2015 Colonoscopy Sekou Hebert MD Start: 06-03-2015 End: 06-04-2015 Documentation of current medications Sekou Hebert MD Start: 06-03-2015 End: 06-03-2015 Follow Up Appt 1 year Sekou Hebert MD Start: 06-03-2015 End: 06-03-2015 MMM Sekou Hebert MD Start: 06-03-2015 End: 06-04-2015 Colonoscopy Sekou Hebert MD Start: 06-03-2015 End: 06-04-2015 Documentation of current medications Sekou Hebert MD Start: 06-03-2015 End: 06-03-2015 Follow Up Appt 1 year Sekou Hebert MD Start: 06-03-2015 End: 06-03-2015 MMM Sekou Hebert MD Start: 05-04-2015 End: 08-29-2017 Mammogram, screening Galina Amezcua Corby DO Work Phone: Start: 05-04-2015 Screening mammography Screening mammogram Holly Tan Start: 03-23-2015 End: 03-24-2015 *BMP Galina A Corby DO Work Phone: Start: 03-23-2015 End: 03-24-2015 Cobalamin (Vitamin B12) [Mass/volume] in Serum or Plasma Galina Goldie Tavarez, DO Work Phone: Start: 03-23-2015 End: 03-24-2015 Ferritin [Mass/volume] in Serum or Plasma Galina A Malys, DO Work Phone: Start: 03-23-2015 End: 03-24-2015 Iron [Mass/volume] in Serum or Plasma Galina A Chuyys, DO Work Phone: Start: 03-23-2015 End: 03-24-2015 Thyrotropin [Units/volume] in Serum or Plasma Galina A Chuyys, DO Work Phone: Start: 03-23-2015 End: 03-25-2015 Thyroxine (T4) free [Mass/volume] in Serum or Plasma Galina Goldie Tavarez, DO Work Phone: Start: 03-23-2015 End: 03-24-2015 *BMP Galina Tavarez, DO Work Phone: Start: 03-23-2015 End: 03-24-2015 Cobalamins (Vitamin B12) Galina Tavarez, D O Work Phone: Start: 03-23-2015 End: 03-24-2015 Ferritin Galina A Corby, DO Work Phone: Start: 03-23-2015 End: 03-24-2015 Iron Galina Goldie Tavarez, DO Work Phone: Start: 03-23-2015 End: 03-24-2015 Thyroid stimulating hormone (TSH) Galina Goldie Tavarez, DO Work Phone: Start: 03-23-2015 End: 03-25-2015 Thyroxine (T4) free Galina A Corby, DO Work Phone: Start: 02-25-2015 End: 03-09-2015 *Hepatic Function Panel Ghazala hess PA-C Work Phone: Start: 02-25-2015 End: 03-09-2015 Lipid 1996 panel - Serum or Plasma Ghazala Fair PA-C Work Phone: Start: 02-25-2015 End: 03-09-2015 *Hepatic Function Panel Ghazala hess PA-C Work Phone: Start: 02-25-2015 End: 03-09-2015 Lipid panel [AGGREGATE] Ghazala hess PA-C Work Phone: Start: 12-28-2014 End: 08-29-2017 Ct lower extremity w/o dye Galina Tavarez, DO Work Phone: Start: 11-24-2014 End: 04-28-2016 HEAD CD REACTOR OPERATOR Ghazala Fair PA-C Work Phone: Start: 11-24-2014 End: 04-28-2016 Follow Up Appt 6 months Ghazala hess PA-C Work Phone: Start: 11-24-2014 End: 04-28-2016 HEAD CD REACTOR OPERATOR Ghazala Fair PA-C Work Phone: Start: 11-24-2014 End: 04-28-2016 Follow Up Appt 6 months Ghazala hess PA-C Work Phone: Start: 09-03-2014 Adult health examination Well adult/preventative care Holly Tan Start: 09-03-2014 End: 08-29-2017 Thyroid stimulating hormone (TSH) Galina Tavarez, DO Work Phone: Start: 07-30-2014 End: 08-31-2014 *Hepatic Function Panel Ghazala hess PA-C Work Phone: Start: 07-30-2014 End: 08-31-2014 Lipid 1996 panel - Serum or Plasma Ghazala Fair PA-C Work Phone: Start: 07-30-2014 End: 08-31-2014 *Hepatic Function Panel Ghazala hess PA-C Work Phone: Start: 07-30-2014 End: 08-31-2014 Lipid panel [AGGREGATE] Ghazala hess PA-C Work Phone: Start: 05-27-2014 End: 05-27-2014 Ecg routine ecg w/least 12 lds w/i&r Sekou Hebert MD Start: 05-27-2014 End: 05-27-2014 Follow Up Appt 6 months Leila Wilson Start: 05-27-2014 End: 05-27-2014 MMM Sekou Hebert MD Start: 05-27-2014 End: 05-27-2014 Electrocardiogram, complete Sekou Hebert MD Start: 05-27-2014 End: 05-27-2014 Follow Up Appt 6 months Leila Wilson Start: 05-27-2014 End: 05-27-2014 MMM Sekou Hebert MD Start: 05-27-2014 End: 06-03-2015 Preoperative cardiovascular examination PRE-OPERATIVE CARDIOVASCULAR EXAMINATION Holly Tan Start: 01-27-2014 End: 02-23-2014 *Hepatic Function Panel Leila Wilson Start: 01-27-2014 End: 02-23-2014 Lipid 1996 panel - Serum or Plasma Sekou Hebert MD Start: 01-27-2014 End: 02-23-2014 *Hepatic Function Panel Leila Wilson Start: 01-27-2014 End: 02-23-2014 Lipid panel [AGGREGATE] Leila Wilson Start: 09-02-2013 End: 09-02-2013 HEAD CD REACTOR OPERATOR Ghazala Fair PA-C Work Phone: Start: 09-02-2013 End: 09-02-2013 Follow Up Appt 6 months Ghazala hess PA-C Work Phone: Start: 09-02-2013 End: 09-02-2013 HEAD CD REACTOR OPERATOR Ghazala Fair PA-C Work Phone: Start: 09-02-2013 End: 09-02-2013 Follow Up Appt 6 months Ghazala hess PA-C Work Phone: Start: 03-19-2013 End: 08-26-2013 *Hepatic Function Panel Aj Schilling MD Start: 03-19-2013 End: 08-26-2013 Lipid 1996 panel - Serum or Plasma Aj Schilling MD Start: 03-19-2013 End: 08-26-2013 *Hepatic Function Panel Aj Schilling MD Start: 03-19-2013 End: 08-26-2013 Lipid panel [AGGREGATE] Aj Schilling MD Start: 03-06-2013 End: 03-06-2013 Ecg routine ecg w/least 12 lds w/i&r Sekou Hebert MD Start: 03-06-2013 End: 03-06-2013 Follow Up Appt 6 months Leila Wilson Start: 03-06-2013 End: 03-06-2013 DONTE Hebert MD Start: 03-06-2013 End: 03-06-2013 Follow Up Appt 6 months Leila Wilson Start: 03-06-2013 End: 03-06-2013 Lipid panel [AGGREGATE] Leila Wilson Start: 03-06-2013 End: 03-06-2013 DONTE Hebert MD Start: 09-03-2012 End: 09-03-2012 Follow Up Appt 6 months Aj Schilling MD Start: 09-03-2012 End: 09-03-2012 Follow Up Appt 6 months Aj Schilling MD Start: 07-31-2012 End: 08-20-2012 *Hepatic Function Panel Aj Schilling MD Start: 07-31-2012 End: 08-20-2012 Lipid 1996 panel - Serum or Plasma Aj Schilling MD Start: 07-31-2012 End: 08-20-2012 *Hepatic Function Panel Aj Schilling MD Start: 07-31-2012 End: 08-20-2012 Lipid panel [AGGREGATE] Aj Schilling MD Start: 06-26-2012 End: 07-08-2012 24 hour holter monitor Aj Schilling MD Start: 06-26-2012 End: 07-08-2012 24 hour holter monitor Aj Schilling MD Start: 06-03-2012 End: 07-08-2012 *CBC with Differential Aj Schilling MD Start: 06-03-2012 End: 07-08-2012 *CBC with Differential Aj Schilling MD Start: 05-30-2012 End: 07-08-2012 *BMP Aj Schilling MD Start: 05-30-2012 End: 07-08-2012 24 hour holter monitor Aj Schilling MD Start: 05-30-2012 End: 07-08-2012 aPTT in Platelet poor plasma by Coagulation assay Aj Schilling MD Start: 05-30-2012 End: 07-08-2012 Chest x-ray Aj Schilling MD Start: 05-30-2012 End: 05-30-2012 Ecg routine ecg w/least 12 lds w/i&r Aj Schilling MD Start: 05-30-2012 End: 06-03-2012 Echocardiography Aj Schilling MD Start: 05-30-2012 End: 05-30-2012 Follow Up Appt 3 months Aj Schilling MD Start: 05-30-2012 End: 07-08-2012 INR in Platelet poor plasma by Coagulation assay Aj Schilling MD Start: 05-30-2012 End: 07-08-2012 Left Heart Cath Aj Schilling MD Start: 05-30-2012 End: 07-08-2012 Magnesium [Mass/volume] in Serum or Plasma Aj Schilling MD Start: 05-30-2012 End: 07-08-2012 Thyrotropin [Units/volume] in Serum or Plasma Aj Schillnig MD Start: 05-30-2012 End: 07-08-2012 *BMP Aj Schilling MD Start: 05-30-2012 End: 07-08-2012 24 hour holter monitor Aj Schilling MD Start: 05-30-2012 End: 07-08-2012 aPTT Aj Schilling MD Start: 05-30-2012 End: 07-08-2012 Coagulation factor induced.INR assay in platelet poor plasma Aj Schilling MD Start: 05-30-2012 End: 06-03-2012 Echocardiography Aj Schilling MD Start: 05-30-2012 End: 05-30-2012 Follow Up Appt 3 months Aj Schilling MD Start: 05-30-2012 End: 07-08-2012 Left Heart Cath Aj Schilling MD Start: 05-30-2012 End: 07-08-2012 Lipid panel [AGGREGATE] Aj Schilling MD Start: 05-30-2012 End: 07-08-2012 Magnesium Aj Schilling MD Start: 05-30-2012 End: 07-08-2012 Thyroid stimulating hormone (TSH) Aj Schilling MD Start: 01-31-2012 End: 02-26-2012 *Hepatic Function Panel Aj Schilling MD Start: 01-31-2012 End: 02-26-2012 Lipid 1996 panel - Serum or Plasma Aj Schilling MD Start: 01-31-2012 End: 02-26-2012 *Hepatic Function Panel Aj Schilling MD Start: 01-31-2012 End: 02-26-2012 Lipid panel [AGGREGATE] Aj Schilling MD Start: 11-30-2011 End: 11-30-2011 Follow Up Appt 6 months Aj Schilling MD Start: 11-30-2011 End: 11-30-2011 Follow Up Appt 6 months Aj Schilling MD Start: 08-29-2011 End: 08-29-2011 *BMP Aj Schilling MD Start: 08-29-2011 End: 08-29-2011 *CBC with Differential Aj Schilling MD Start: 08-29-2011 End: 11-21-2011 24 hour holter monitor Aj Schilling MD Start: 08-29-2011 End: 11-21-2011 Carotid duplex Aj Schilling MD Start: 08-29-2011 End: 11-21-2011 Echocardiography Aj Schilling MD Start: 08-29-2011 End: 08-29-2011 Follow Up Appt 3 months Aj Schilling MD Start: 08-29-2011 End: 11-21-2011 Nuclear stress test -exercise Aj Schilling MD Start: 08-29-2011 End: 08-29-2011 Thyrotropin [Units/volume] in Serum or Plasma Aj Schilling MD Start: 08-29-2011 End: 02-26-2012 Thyroxine (T4) [Mass/volume] in Serum or Plasma Aj Schilling MD Start: 08-29-2011 End: 08-29-2011 *BMP Aj Schilling MD Start: 08-29-2011 End: 08-29-2011 *CBC with Differential Aj Schilling MD Start: 08-29-2011 End: 11-21-2011 24 hour holter monitor Aj Schilling MD Start: 08-29-2011 End: 11-21-2011 Carotid duplex Aj Schilling MD Start: 08-29-2011 End: 11-21-2011 Echocardiography Aj Schilling MD Start: 08-29-2011 End: 08-29-2011 Follow Up Appt 3 months Aj Schilling MD Start: 08-29-2011 End: 08-29-2011 Lipid panel [AGGREGATE] Aj Schilling MD Start: 08-29-2011 End: 11-21-2011 Nuclear stress test -exercise Aj Schilling MD Start: 08-29-2011 End: 08-29-2011 Thyrotropin [Units/volume] in Serum or Plasma Aj Schilling MD Start: 08-29-2011 End: 02-26-2012 Thyroxine (T4) Aj Schilling MD Plan of Treatment Date Care Activity Detail Author Start: 04-24-2029 Screening for malignant neoplasm of colon [facility] Start: 2025 RSV Vaccine (1 - 1-dose 75+ series) RSV Vaccine (1 - 1-dose 75+ series) [facility] Start: 03-30-2024 Covid-19 Vaccine ( season) Covid-19 Vaccine ( season) [facility] Start: 03-30-2024 Influenza vaccination Influenza Vaccine (#1) [facility] Start: 07-30-2023 Advance Directive Discussion Advance Directive Discussion [facility] Start: 11-26-2017 End: 05-29-2017 *Hepatic Function Panel *Hepatic Function Panel [facility] Work Phone: Start: 11-26-2017 End: 05-29-2017 Lipid panel [AGGREGATE] *Lipid Profile CC PCP [facility] Work Phone: Start: 11-26-2017 End: 05-29-2017 *Hepatic Function Panel *Hepatic Function Panel [facility] Work Phone: Start: 11-26-2017 End: 05-29-2017 Lipid panel [AGGREGATE] *Lipid Profile CC PCP [facility] Work Phone: Start: 09-10-2017 End: 09-10-2017 Appointment Appointment [facility] Work Phone: Start: 09-10-2017 End: 09-10-2017 Appointment Appointment [facility] Work Phone: Start: 05-09-2017 End: 05-23-2017 *Hepatic Function Panel *Hepatic Function Panel [facility] Work Phone: Start: 05-09-2017 End: 05-23-2017 Lipid panel [AGGREGATE] *Lipid Profile CC PCP [facility] Work Phone: Start: 05-09-2017 End: 05-23-2017 *Hepatic Function Panel *Hepatic Function Panel [facility] Work Phone: Start: 05-09-2017 End: 05-23-2017 Lipid panel [AGGREGATE] *Lipid Profile CC PCP [facility] Work Phone: Start: 03-06-2017 End: 03-06-2017 CA screen;pelvic/breast exam Pelvic/Breast Exam (Medicare Patient) [facility] [employer] [employer] Work Phone: Start: 03-06-2017 End: 03-06-2017 Mammogram, screening Mammogram, Screening, both breasts [facility] [employer] Work Phone: Start: 03-06-2017 End: 03-06-2017 Appointment Appointment [facility] Start: 03-06-2017 End: 03-06-2017 Mammogram, screening Mammogram, Screening, both breasts [facility] Start: 03-06-2017 End: 03-06-2017 Pelvic/Breast Exam (Medicare Patient) Pelvic/Breast Exam (Medicare Patient) [facility] Start: 12-21-2016 Screening for malignant neoplasm of colon Fecal Occult Blood [facility] Start: 12-07-2016 End: 12-07-2016 Follow Up Appt 9 months Follow Up Appt 9 months [facility] Work Phone: Start: 12-07-2016 End: 12-07-2016 MMM MMM [facility] Work Phone: Start: 12-07-2016 End: 12-07-2016 Appointment Appointment [facility] Work Phone: Start: 12-07-2016 End: 08-29-2017 Follow Up Appt 9 months Follow Up Appt 9 months [facility] Work Phone: Start: 12-07-2016 End: 08-29-2017 MMM MMM [facility] Work Phone: Start: 10-26-2016 End: 11-07-2016 *Hepatic Function Panel *Hepatic Function Panel [facility] Work Phone: Start: 10-26-2016 End: 11-07-2016 Lipid panel [AGGREGATE] *Lipid Profile CC PCP [facility] Work Phone: Start: 10-26-2016 End: 11-07-2016 *Hepatic Function Panel *Hepatic Function Panel [facility] Work Phone: Start: 10-26-2016 End: 11-07-2016 Lipid panel [AGGREGATE] *Lipid Profile CC PCP [facility] Work Phone: Start: 09-02-2016 Hemoglobin A1c measurement HbA1C [facility] Start: 08-21-2016 End: 03-02-2016 *CBC with Differential *CBC with Differential [facility] Work Phone: Start: 08-21-2016 End: 03-02-2016 *CMP Complete Metabolic Panel *CMP Complete Metabolic Panel [facility] [employer] Work Phone: Start: 08-21-2016 End: 03-02-2016 *Microalbumin, Creatine Ratio, rand urine *Microalbumin, Creatine Ratio, rand urine [facility] [employer] Work Phone: Start: 08-21-2016 End: 03-02-2016 Hemoglobin A1c/Hemoglobin.total mass fraction (Bld) *HgA1C [facility] [employer] Work Phone: Start: 08-21-2016 End: 03-02-2016 Thyroid stimulating hormone (TSH) *TSH [facility] [employer] Work Phone: Start: 08-21-2016 End: 08-29-2017 *CBC with Differential *CBC with Differential [facility] Work Phone: Start: 08-21-2016 End: 08-29-2017 *CMP Complete Metabolic Panel *CMP Complete Metabolic Panel [facility] [employer] Work Phone: Start: 08-21-2016 End: 08-29-2017 *Microalbumin, Creatine Ratio, rand urine *Microalbumin, Creatine Ratio, rand urine [facility] [employer] Work Phone: Start: 08-21-2016 End: 08-29-2017 HbA1c *HgA1C [facility] Work Phone: Start: 08-21-2016 End: 08-29-2017 Thyroid stimulating hormone (TSH) *TSH [facility] Work Phone: Start: 07-12-2016 Screening for malignant neoplasm of breast Mammogram Screening [facility] Start: 06-06-2016 End: 06-06-2016 Follow Up Appt 6 months Follow Up Appt 6 months [employer] Work Phone: Start: 06-06-2016 End: 06-06-2016 MMM MMM [facility] Work Phone: Start: 06-06-2016 End: 06-06-2016 Follow Up Appt 6 months Follow Up Appt 6 months [facility] Work Phone: Start: 06-06-2016 End: 06-06-2016 MMM MMM [facility] Work Phone: Start: 03-21-2016 End: 04-28-2016 *Hepatic Function Panel *Hepatic Function Panel [facility] Work Phone: Start: 03-21-2016 End: 04-28-2016 Lipid panel [AGGREGATE] *Lipid Profile CC PCP [facility] Work Phone: Start: 03-21-2016 End: 04-28-2016 *Hepatic Function Panel *Hepatic Function Panel [facility] Work Phone: Start: 03-21-2016 End: 04-28-2016 Lipid panel [AGGREGATE] *Lipid Profile CC PCP [facility] [employer] Work Phone: Start: 10-13-2015 End: 10-14-2015 WhyWeight WhyWeight [facility] Nutrition Services, [address] [place], [address] [facility] [employer] Work Phone: Start: 10-13-2015 End: 10-14-2015 WhyWeight WhyWeight [facility] Nutrition Services, [address] [place], [address] [facility] Work Phone: Start: 09-24-2015 End: 09-28-2015 Railroad Construction Director Railroad Construction Director [facility] Nutrition Services, [address] [place], [address] [facility] Work Phone: Start: 09-24-2015 End: 09-28-2015 Railroad Construction Director Railroad Construction Director [facility] Nutrition Services, [address] [place], [address] [facility] Work Phone: Start: 09-23-2015 End: 09-23-2015 Chest x-ray X-Ray, Chest, PA & Lateral [facility] Work Phone: Start: 09-23-2015 End: 08-29-2017 Chest x-ray X-Ray, Chest, PA & Lateral [facility] Work Phone: Start: 09-09-2015 End: 09-21-2015 *Hepatic Function Panel *Hepatic Function Panel [facility] Work Phone: Start: 09-09-2015 End: 09-21-2015 Lipid panel [AGGREGATE] *Lipid Profile CC PCP [facility] Work Phone: Start: 09-09-2015 End: 09-21-2015 *Hepatic Function Panel *Hepatic Function Panel [facility] Work Phone: Start: 09-09-2015 End: 09-21-2015 Lipid panel [AGGREGATE] *Lipid Profile CC PCP [facility] Work Phone: Start: 08-05-2015 End: 09-21-2015 Thyroid stimulating hormone (TSH) *TSH [facility] Work Phone: Start: 08-05-2015 End: 09-21-2015 Thyroid stimulating hormone (TSH) *TSH [facility] Work Phone: Start: 07-15-2015 End: 07-15-2015 C reactive protein (hsCRP) *CRP - C-Reative Protein [facility] Work Phone: Start: 07-15-2015 End: 07-15-2015 Erythrocyte sedimentation rate *Sedimentation Rate (ESR) [facility] Work Phone: Start: 07-15-2015 End: 07-15-2015 C reactive protein (hsCRP) *CRP - C-Reative Protein [facility] Work Phone: Start: 07-15-2015 End: 07-15-2015 Erythrocyte sedimentation rate *Sedimentation Rate (ESR) [facility] Work Phone: Start: 07-12-2015 End: 07-12-2015 Ct head/brain w/o contrast material CT Head/Brain without contrast [facility] Work Phone: Start: 07-12-2015 End: 08-29-2017 Ct head/brain w/o dye CT Head/Brain without contrast [facility] Work Phone: Start: 06-15-2015 End: 06-15-2015 Arthrocentesis aspir&/inj major jt/bursa w/o us Injection, Joint (major) [facility] Work Phone: Start: 06-15-2015 End: 06-15-2015 Triamcinolone acet inj NOS Kenalog per 10 mg [facility] Work Phone: Start: 06-15-2015 End: 08-29-2017 Drain/inject, joint/bursa Injection, Joint (major) [facility] Work Phone: Start: 06-15-2015 End: 08-29-2017 Kenalog per 10 mg Kenalog per 10 mg [facility] Work Phone: Start: 06-10-2015 End: 06-10-2015 Radex shoulder complete minimum 2 views X-Ray, Shoulder [facility] Work Phone: Start: 06-10-2015 End: 08-29-2017 X-ray exam of shoulder X-Ray, Shoulder [facility] Work Phone: Start: 06-03-2015 End: 06-03-2015 Follow Up Appt 1 year Follow Up Appt 1 year [facility] Work Phone: Start: 06-03-2015 End: 06-03-2015 MMM MMM [facility] Work Phone: Start: 06-03-2015 End: 06-03-2015 Follow Up Appt 1 year Follow Up Appt 1 year [facility] Work Phone: Start: 06-03-2015 End: 06-03-2015 MMM MMM [facility] Work Phone: Start: 05-04-2015 End: 05-04-2015 Mammogram, screening Mammogram, Screening, both breasts [facility] Work Phone: Start: 05-04-2015 End: 08-29-2017 Mammogram, screening Mammogram, Screening, both breasts [facility] Work Phone: Start: 03-23-2015 End: 03-24-2015 *BMP *BMP [facility] Work Phone: Start: 03-23-2015 End: 03-24-2015 Cobalamins (Vitamin B12) *B-12 [facility] Work Phone: Start: 03-23-2015 End: 03-24-2015 Ferritin *Ferritin [facility] Work Phone: Start: 03-23-2015 End: 03-24-2015 Iron *Iron [facility] Work Phone: Start: 03-23-2015 End: 03-24-2015 Thyroid stimulating hormone (TSH) *TSH [facility] Work Phone: Start: 03-23-2015 End: 03-25-2015 Thyroxine (T4) free *T4 free [facility] Work Phone: Start: 03-23-2015 End: 03-24-2015 *BMP *BMP [facility] Work Phone: Start: 03-23-2015 End: 03-24-2015 Cobalamins (Vitamin B12) *B-12 [facility] Work Phone: Start: 03-23-2015 End: 03-24-2015 Ferritin *Ferritin [facility] Work Phone: Start: 03-23-2015 End: 03-24-2015 Iron *Iron [facility] Work Phone: Start: 03-23-2015 End: 03-24-2015 Thyroid stimulating hormone (TSH) *TSH [facility] Work Phone: Start: 03-23-2015 End: 03-25-2015 Thyroxine (T4) free *T4 free [facility] Work Phone: Start: 02-25-2015 End: 03-09-2015 *Hepatic Function Panel *Hepatic Function Panel [facility] Work Phone: Start: 02-25-2015 End: 03-09-2015 Lipid panel [AGGREGATE] *Lipid Profile CC PCP [facility] Work Phone: Start: 02-25-2015 End: 03-09-2015 *Hepatic Function Panel *Hepatic Function Panel [facility] Work Phone: Start: 02-25-2015 End: 03-09-2015 Lipid panel [AGGREGATE] *Lipid Profile CC PCP [facility] Work Phone: Start: 12-28-2014 End: 12-28-2014 Ct lower extremity w/o contrast material CT Lower Extremity [facility] Work Phone: Start: 12-28-2014 End: 08-29-2017 Ct lower extremity w/o dye CT Lower Extremity [facility] Work Phone: Start: 11-24-2014 End: 04-28-2016 HEAD CD REACTOR OPERATOR HEAD CD REACTOR OPERATOR [facility] Work Phone: Start: 11-24-2014 End: 04-28-2016 Follow Up Appt 6 months Follow Up Appt 6 months [facility] Work Phone: Start: 11-24-2014 End: 04-28-2016 HEAD CD REACTOR OPERATOR HEAD CD REACTOR OPERATOR [facility] Work Phone: Start: 11-24-2014 End: 04-28-2016 Follow Up Appt 6 months Follow Up Appt 6 months [facility] Work Phone: Start: 09-03-2014 End: 09-03-2014 Thyroid stimulating hormone (TSH) *TSH [facility] Work Phone: Start: 09-03-2014 End: 08-29-2017 Thyroid stimulating hormone (TSH) *TSH [facility] Work Phone: Start: 07-30-2014 End: 08-31-2014 *Hepatic Function Panel *Hepatic Function Panel [facility] Work Phone: Start: 07-30-2014 End: 08-31-2014 Lipid panel [AGGREGATE] *Lipid Profile CC PCP [facility] Work Phone: Start: 07-30-2014 End: 08-31-2014 *Hepatic Function Panel *Hepatic Function Panel [facility] Work Phone: Start: 07-30-2014 End: 08-31-2014 Lipid panel [AGGREGATE] *Lipid Profile CC PCP [facility] Work Phone: Start: 05-27-2014 End: 05-27-2014 Ecg routine ecg w/least 12 lds w/i&r EKG (In office) [facility] Work Phone: Start: 05-27-2014 End: 05-27-2014 Follow Up Appt 6 months Follow Up Appt 6 months [facility] Work Phone: Start: 05-27-2014 End: 05-27-2014 MMM MMM [facility] Work Phone: Start: 05-27-2014 End: 05-27-2014 Electrocardiogram, complete EKG (In office) [facility] Work Phone: Start: 05-27-2014 End: 05-27-2014 Follow Up Appt 6 months Follow Up Appt 6 months [facility] Work Phone: Start: 05-27-2014 End: 05-27-2014 MMM MMM [facility] Work Phone: Start: 01-27-2014 End: 02-23-2014 *Hepatic Function Panel *Hepatic Function Panel [facility] Work Phone: Start: 01-27-2014 End: 02-23-2014 Lipid panel [AGGREGATE] *Lipid Profile CC PCP [facility] Work Phone: Start: 01-27-2014 End: 02-23-2014 *Hepatic Function Panel *Hepatic Function Panel [facility] Work Phone: Start: 01-27-2014 End: 02-23-2014 Lipid panel [AGGREGATE] *Lipid Profile CC PCP [facility] Work Phone: Start: 09-02-2013 End: 09-02-2013 HEAD CD REACTOR OPERATOR HEAD CD REACTOR OPERATOR [facility] Work Phone: Start: 09-02-2013 End: 09-02-2013 Follow Up Appt 6 months Follow Up Appt 6 months [facility] Work Phone: Start: 09-02-2013 End: 09-02-2013 HEAD CD REACTOR OPERATOR HEAD CD REACTOR OPERATOR [facility] Work Phone: Start: 09-02-2013 End: 09-02-2013 Follow Up Appt 6 months Follow Up Appt 6 months [facility] Work Phone: Start: 03-19-2013 End: 08-26-2013 *Hepatic Function Panel *Hepatic Function Panel [facility] Work Phone: Start: 03-19-2013 End: 08-26-2013 Lipid panel [AGGREGATE] *Lipid Profile [facility] Work Phone: Start: 03-19-2013 End: 08-26-2013 *Hepatic Function Panel *Hepatic Function Panel [facility] Work Phone: Start: 03-19-2013 End: 08-26-2013 Lipid panel [AGGREGATE] *Lipid Profile [facility] Work Phone: Start: 03-06-2013 End: 03-06-2013 Ecg routine ecg w/least 12 lds w/i&r EKG (In office) [facility] Work Phone: Start: 03-06-2013 End: 03-06-2013 Follow Up Appt 6 months Follow Up Appt 6 months [facility] Work Phone: Start: 03-06-2013 End: 03-06-2013 MMM MMM [facility] Work Phone: Start: 03-06-2013 End: 03-06-2013 Electrocardiogram, complete EKG (In office) [facility] Work Phone: Start: 03-06-2013 End: 03-06-2013 Follow Up Appt 6 months Follow Up Appt 6 months [facility] Work Phone: Start: 03-06-2013 End: 03-06-2013 MMM MMM [facility] Work Phone: Start: 09-03-2012 End: 09-03-2012 Follow Up Appt 6 months Follow Up Appt 6 months [facility] Work Phone: Start: 09-03-2012 End: 09-03-2012 Follow Up Appt 6 months Follow Up Appt 6 months [facility] Work Phone: Start: 07-31-2012 End: 08-20-2012 *Hepatic Function Panel *Hepatic Function Panel [facility] Work Phone: Start: 07-31-2012 End: 08-20-2012 Lipid panel [AGGREGATE] *Lipid Profile [facility] Work Phone: Start: 07-31-2012 End: 08-20-2012 *Hepatic Function Panel *Hepatic Function Panel [facility] Work Phone: Start: 07-31-2012 End: 08-20-2012 Lipid panel [AGGREGATE] *Lipid Profile [facility] Work Phone: Start: 06-26-2012 End: 06-10-2012 24 hour holter monitor 24 hour holter monitor [facility] Work Phone: Start: 06-26-2012 End: 06-10-2012 24 hour holter monitor 24 hour holter monitor [facility] Work Phone: Start: 06-03-2012 End: 07-08-2012 *CBC with Differential *CBC with Differential [facility] Work Phone: Start: 06-03-2012 End: 07-08-2012 *CBC with Differential *CBC with Differential [facility] Work Phone: Start: 05-30-2012 End: 05-30-2012 *BMP *BMP [facility] Work Phone: Start: 05-30-2012 End: 05-30-2012 24 hour holter monitor 24 hour holter monitor [facility] Work Phone: Start: 05-30-2012 End: 07-08-2012 aPTT *PTT-Partial Thromboplastin Time [facility] Work Phone: Start: 05-30-2012 End: 07-08-2012 Chest x-ray X-Ray, Chest, PA & Lateral [facility] Work Phone: Start: 05-30-2012 End: 05-30-2012 Ecg routine ecg w/least 12 lds w/i&r EKG (In office) [facility] Work Phone: Start: 05-30-2012 End: 05-30-2012 Echocardiography Echocardiogram (complete) [facility] Work Phone: Start: 05-30-2012 End: 05-30-2012 Follow Up Appt 3 months Follow Up Appt 3 months [facility] Work Phone: Start: 05-30-2012 End: 07-08-2012 INR Coag RelTime (PPP) *PT/INR [facility] Work Phone: Start: 05-30-2012 End: 05-30-2012 Left Heart Cath Left Heart Cath [facility] Work Phone: Start: 05-30-2012 End: 07-08-2012 Magnesium *Magnesium [facility] Work Phone: Start: 05-30-2012 End: 07-08-2012 Thyroid stimulating hormone (TSH) *TSH [facility] Work Phone: Start: 05-30-2012 End: 05-30-2012 *BMP *BMP [facility] Work Phone: Start: 05-30-2012 End: 05-30-2012 24 hour holter monitor 24 hour holter monitor [facility] [employer] Work Phone: Start: 05-30-2012 End: 07-08-2012 aPTT *PTT-Partial Thromboplastin Time [facility] Work Phone: Start: 05-30-2012 End: 07-08-2012 aPTT Coag time (PPP) *PTT-Partial Thromboplastin Time [facility] Work Phone: Start: 05-30-2012 End: 07-08-2012 Chest x-ray X-Ray, Chest, PA & Lateral [facility] [facility] Work Phone: Start: 05-30-2012 End: 07-08-2012 Coagulation factor induced.INR assay in platelet poor plasma *PT/INR [facility] [employer] Work Phone: Start: 05-30-2012 End: 05-30-2012 Echocardiography Echocardiogram (complete) [facility] Work Phone: Start: 05-30-2012 End: 05-30-2012 Electrocardiogram, complete EKG (In office) [facility] Work Phone: Start: 05-30-2012 End: 05-30-2012 Follow Up Appt 3 months Follow Up Appt 3 months [facility] Work Phone: Start: 05-30-2012 End: 05-30-2012 Left Heart Cath Left Heart Cath [facility] Work Phone: Start: 05-30-2012 End: 07-08-2012 Magnesium *Magnesium [facility] [employer] Work Phone: Start: 05-30-2012 End: 07-08-2012 Thyroid stimulating hormone (TSH) *TSH [facility] [employer] Work Phone: Start: 01-31-2012 End: 02-26-2012 *Hepatic Function Panel *Hepatic Function Panel [facility] Work Phone: Start: 01-31-2012 End: 02-26-2012 Lipid panel [AGGREGATE] *Lipid Profile [facility] Work Phone: Start: 01-31-2012 End: 02-26-2012 *Hepatic Function Panel *Hepatic Function Panel [facility] Work Phone: Start: 01-31-2012 End: 02-26-2012 Lipid panel [AGGREGATE] *Lipid Profile [facility] Work Phone: Start: 11-30-2011 End: 11-30-2011 Follow Up Appt 6 months Follow Up Appt 6 months [facility] Work Phone: Start: 11-30-2011 End: 11-30-2011 Follow Up Appt 6 months Follow Up Appt 6 months [facility] Work Phone: Start: 08-29-2011 End: 08-29-2011 *BMP *BMP [facility] [employer] Work Phone: Start: 08-29-2011 End: 08-29-2011 *CBC with Differential *CBC with Differential [facility] [employer] Work Phone: Start: 08-29-2011 End: 08-29-2011 24 hour holter monitor 24 hour holter monitor [facility] [employer] Work Phone: Start: 08-29-2011 End: 08-29-2011 Carotid duplex Carotid duplex [facility] [employer] Work Phone: Start: 08-29-2011 End: 08-29-2011 Echocardiography Echocardiogram (complete) [facility] [employer] Work Phone: Start: 08-29-2011 End: 08-29-2011 Follow Up Appt 3 months Follow Up Appt 3 months [facility] Work Phone: Start: 08-29-2011 End: 08-29-2011 Nuclear stress test -exercise Nuclear stress test -exercise [facility] [employer] Work Phone: Start: 08-29-2011 End: 08-29-2011 Thyroid stimulating hormone (TSH) *TSH [facility] [employer] Work Phone: Start: 08-29-2011 End: 02-26-2012 Thyroxine (T4) *T4 (Total) [facility] [employer] Work Phone: Start: 08-29-2011 End: 08-29-2011 *BMP *BMP [facility] Work Phone: Start: 08-29-2011 End: 08-29-2011 *CBC with Differential *CBC with Differential [facility] Work Phone: Start: 08-29-2011 End: 08-29-2011 24 hour holter monitor 24 hour holter monitor [facility] Work Phone: Start: 08-29-2011 End: 08-29-2011 Carotid duplex Carotid duplex [facility] Work Phone: Start: 08-29-2011 End: 08-29-2011 Echocardiography Echocardiogram (complete) [facility] Work Phone: Start: 08-29-2011 End: 08-29-2011 Follow Up Appt 3 months Follow Up Appt 3 months [facility] Work Phone: Start: 08-29-2011 End: 08-29-2011 Nuclear stress test -exercise Nuclear stress test -exercise [facility] Work Phone: Start: 08-29-2011 End: 08-29-2011 Thyroid stimulating hormone (TSH) *TSH [facility] Work Phone: Start: 08-29-2011 End: 02-26-2012 Thyroxine (T4) *T4 (Total) [facility] Work Phone: Start: 2000 Shingrix Vaccine (1 of 2) Shingrix Vaccine (1 of 2) [facility] Start: 1995 Screening for malignant neoplasm of colon [facility] Start: 1969 Urine microalbumin profile DTaP,Tdap,Td Vaccine (1 - Tdap) [facility] Start: 1968 Annual PCP Team Chronic Disease Visit Annual PCP Team Chronic Disease Visit [facility] Start: 1968 Anxiety Screening Anxiety Screening [facility] Start: 1968 BP Controlled (<130/80) BP Controlled (<130/80) [facility] Start: 1968 Depression Screening Depression Screening [facility] Start: 1968 Hepatitis B surface antibody level LDL Cholesterol [facility] Start: 1968 Hepatitis C screening Hepatitis C Screening [facility] Start: 1960 Diabetic foot examination Diabetic Foot Exam [facility] Start: 1960 Glaucoma screening Dilated Retinal Exam [facility] Start: 1960 Hepatitis B screening Urine Albumin:Creatinine Ratio [facility] Start: 1956 Pneumococcal Vaccine: 65+ (1 of 2 - PCV) Pneumococcal Vaccine: 65+ (1 of 2 - PCV) [facility] Patient Education [facility] Work Phone: Payers Date Payer Category Payer Unknown MMO MMO MEDICARE SUPPLEMENT [id number] 2019-Present [phone] [address] [place] [address] Indemnity [id number] 2018 Medicare [id number] 2018 Unknown [id number] 2016 Medicare MEDICARE MEDICAR E A AND B [id number] 2016-Present [phone] [address] [address] [place] [address] Medicare [id number] 1950 Unknown [id number] Social History Date Type Detail Facility [facility]: [facility]-31-2011 [facility] Work Phone: Start: 01-31-2011 Tobacco use and exposure Smokeless tobacco non-user [facility] Start: 04-21-2021 Alcoholic beverage intake Current non-drinker of alcohol (finding) [facility] Start: 12-31-2020 End: 04-21-2021 History of Social function [facility] Start: 12-31-2020 End: 04-21-2021 Tobacco use panel [facility] National Score (1-10 0), lower number is lower risk Not on file [facility] Start: 1950 Sex assigned at Female [facility] Start: 02-16-2021 Gender identity Identifies as female gender (finding) [facility] Start: 02-16-2021 Sexual orientation Heterosexual (vinicius joel) [facility] Medical Equipment Procedure Code Equipment Code Equipment Origin al Text Equipment Identifier Dates LANCETS [id number] Start: 09-23-2015 End: 10-26-2015 TEST STRIPS [id number] Start: 09-23-2015 Bement Taper 5.5 mm Suture Quattro X Uhmwpe Peek 1 Row [id number] Start: 03-09-2021 Bement Taper 5.5 mm Suture Quattro X Uhmwpe Peek 1 Row [id number] Start: 03-09-2021 Bement Taper 5.5 mm Suture Quattro X Uhmwpe Peek 1 Row [id number] Start: 03-09-2021 Bement Taper 5.5 mm Suture Quattro X Uhmwpe Peek 1 Row [id number] Start: 03-09-2021 Progress note 09-22-2021 Note Date & Type Note Facility 09-22-2021 Note HNO ID: [id number] Author: Christina Fischer MD Service: ? Author Type: Physician Type: Progress Notes Filed: 09/22/2021 8:10 AM Note Text: Patient: Korin Harper : 1950 Date of Surgery: 03/09/21 Procedure(s): Right hip gluteus medius repair, open (94558), with primary repair fixation (66875) Walpole's gluteus stephen/ tensor fascia pierre transfer: Right hip/ thigh transplant/ transfer multiple thigh tendons (35433) Hip greater trochanteric bursectomy (63542) Application of rehabilitation brace under anesthesia [52053] HPI: Korin Harper is a 70 year old female who presents s/p Right open abductor repair. The pain has improved since surgery. The patient denies wound healing difficulty, fevers, or chills. Walking into clinic without assistive device. DVT prophylaxis/ Analgesic Medication: See medication list Review of Systems, Past Medical History, Past Surgical History, Family History, and Social History: Reviewed and charted into Epic. Allergies: Cat Scan Dye [Other], Levaquin [Levofloxacin], [...] was pleased with the plan of care. [facility] Progress note 09-19-2021 Note Date & Type Note Facility 09-19-2021 Note HNO ID: [id number] Author: RT Jocelyn(R) Service: Nuclear Medicine Author [...] RT Jocelyn(R) September 19, 2021 2:53 PM [facility] Progress note 04-21-2021 Note Date & Type Note Facility 04-21-2021 Note HNO ID: [id number] Author: Christina Fischer MD Service: ? Author Type: Physician Type: Progress Notes Filed: 04/21/2021 10:12 AM Note Text: Post-Op Visit Patient: Korin Harper : 1950 Date of Surgery: 03/09/2021 Procedure(s): Right hip gluteus medius repair, open (16462), with primary repair fixation (29957) Walpole's gluteus stephen/ tensor fascia pierre transfer: Right hip/ thigh transplant/ transfer multiple thigh tendons (54575) Hip greater trochanteric bursectomy (82888) Application of rehabilitation brace under anesthesia [78016] HPI: Korin Harper is a 70 year old female who presents s/p Right open abductor repair. The pain has improved since surgery. The patient denies wound healing difficulty, fevers, or chills. DVT prophylaxis/ Analgesic Medication: See medication list Review of Systems, Past Medical History, Past Surgical History, Family History, and Social History: Reviewed and charted into [facility]. Allergies: Cat Scan Dye [Other], Levaquin [Levofloxacin], [...] was pleased with the plan of care. [facility] Progress note 03-24-2021 Note Date & Type Note Facility 03-24-2021 Note HNO ID: [id number] Author: EVA Morrison Service: ? Author Type: Registered Nurse Honey Liquefier Type: Progress Notes Filed: 03/25/2021 8:26 AM Note Text: Right gluteus repair 2 week post op Doing well Ambulates with w/c Pain 0/10 Incision looks very good Physical Therapy going well Cast tech in to adjust brace for comfort Follow up at 6 week [address] op with Dr Fischer with XR first [facility] Progress note 03-10-2021 Note Date & Type Note Facility 03-10-2021 Note HNO ID: [id number] Author: Jeevan Rea MD Service: Orthopaedic Surgery Author Type: Physician Type: Progress Notes Filed: 03/10/2021 6:16 AM Note Text: ORTHOPAEDIC SURGERY PROGRESS NOTE PATIENT NAME: Korin Harper Surgery Date: 03/09/2021 Surgeon: Dr. Christina Fischer MD Procedure(s): Procedure(s) (LRB): SUTURE REPAIR GLUTEUS MEDIUS (Right) Subjective: POD 1 s/p R glut medius suture repair (03/09) No acute events overnight. Vitals stable. Pain controlled. Voiding and passing flatus. Has not worked with PT yet. Denies CP/SOB. Vitals: 03/09/21 1640 03/09/21 1948 03/09/21 2156 03/10/21 0406 BP: 136/76 158/83 136/74 150/85 Pulse: 94 106 106 98 Resp: 16 16 Temp: 36.6 ?C (97.9 ?F) 36.7 [...] 2 Diabetes Mellitus (Hcc) Ventricular Premature Beats Toyin (Obstructive Sleep Apnea) Frequent Uti Class 1 [...] GLUTEUS MEDIUS (Right) on 03/09/[address] Christina Fischer MD - Weight bearing: non-weight bearing RLE, in brace at all times except hygiene purposes - Antibiotics: natalia-op abx - DVT prophylaxis: Resume home Aspirin [...] 30 MED average limit outlined by the [facility]. A prescription was thus provided that exceeds the 30 MED average limit due to greater than usual pain secondary to major orthopaedic surgery. Every effort will be made to de-escalate the patient's opioid use while providing an appropriate level of postoperative pain management. SIGNATURE: Jeevan Rea MD PATIENT NAME: Korin Harper DATE: March 10, 2021 TIME: 6:13 AM [facility] Progress note 01-03-2021 Note Date & Type Note Facility 01-03-2021 Note HNO ID: [id number] Author: Almas Arriola MA Service: ? Author Type: ? Type: Progress Notes Filed: 01/03/2021 9:45 AM Note Text: PT ASSESSMENT - CASTING ROOM Korin presents for Application of brace. Applied Donjoy Versa Rom hip brace to right leg. Patient has been instructed in Almas Arriola MA [facility] Progress note 01-03-2021 Note Date & Type Note Facility 01-03-2021 Note HNO ID: [id number] Author: Christina Fischer MD Service: ? Author Type: Physician Type: [...] low cervical - COLONOSCOP W/ OR W/O BRS SPEC normal colonscopy, few diverticula - COLONOSCOPY [...] Review of Systems: Reviewed and charted into [facility]. Physical Exam: PE reveals a female with the following vitals signs: Wt 84.4 kg (186 lb) BMI 35.14 kg/m? Body mass index is 35.14 kg/m?. General appearance: Well appearing, alert, in no acute distress, well-hydrated, well nourished. Psych: Mo (more content not included)... [facility] Progress note 12-31-2020 Note Date & Type Note Facility 12-31-2020 Note HNO ID: [id number] Author: RT Martha(R) Service: ? Author Type: Assistant Maintenance Manager Type: Progress Notes Filed: 12/31/2020 10:45 AM [...] RT Martha(R) December 31, 2020 10:33 AM [facility] Progress note 11-02-2020 Note Date & Type Note Facility 11-02-2020 Note HNO ID: [id number] Author: Jesus Cruz (Tech) Service: ? Author Type: Assistant Maintenance Manager Type: Progress Notes Filed: 11/02/2020 6:26 PM [...] Jesus Cruz November 02, 2020 6:26 PM [facility] Evaluation note Note Date & Type Note Facility Evaluation note Diagnosis Pre-operative examination- Primary Preoperative examination, unspecified Arteriosclerosis of coronary artery Coronary atherosclerosis of unspecified type of vessel, [place] or graft Hypercholesteremia Pure hypercholesterolemia PVC (premature ventricular contraction) Other premature beats Gastroesophageal reflux disease, unspecified whether esophagitis present TOYIN (obstructive sleep apnea) Obstructive sleep apnea (adult) (pediatric) Frequent UTI Urinary tract infection, site not specified Hypothyroidism, unspecified type Type 2 diabetes mellitus without complication, without long-term current use of insulin ([facility]) Class 1 obesity due to excess calories with serious comorbidity and body mass index (BMI) of 34.0 to 34.9 in adult Tear of right gluteus medius tendon, initial encounter documented in this encounter [facility] Summary Purpose Family History No Family History Records FoundNo Family History Records Found Advance Directives Date Activated Date Inactivated Comments 03/16/2021 4:19 PM Additional Source Comments INFORMATION SOURCE (unrecogn ized section and content) DATE CREATED AUTHOR 11/14/2018 [facility] ([place]) DATE CREATED AUTHOR AUTHOR'S ORGANIZ ATION 10/16/2021 [facility] Source Comments (unrecognize d section and content) In the event this informatio n is protected by the Federal Confidentiality of Alcohol and Drug Abuse Patient Records regulations: The Federal rules restrict any use of the information to criminally investigate or prosecute any alcohol or drug abuse patient.[facility] Reason for Visit (unrecogniz ed section and content) Reason Comments Radio Gen P Care Teams (unrecognized sec tion and content) 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 [facility]. provides no warranty or guarantee of the accuracy or completeness of information in this document.
== END | disposition home or self-care (01) ==
LOC: US 09:08
PROVIDERS: PCP Family Medicine; Referring Provider Internal Medicine Gastroenterology; Visit Provider Internal Medicine Gastroenterology
DX: K76.0 Fatty (change of) liver, not elsewhere classified (principal)
CPT/HCPCS: 76705; 76981

== ENCOUNTER → 2024-05-30 | Outpatient (CLI) | payer MEDICARE, OTHER, SELFPAY ==
--- NOTE | 2024-05-30 10:38 | BI_ITS ---
MAMMOGRAPHY - BILATERAL SCREENING REASON FOR EXAM: Female, 73 years old. Routine annual screening examination. PERTINENT HISTORY: Non-contributory. TECHNIQUE: Digital bilateral breast elan (3D mammographic acquisition) in the CC and MLO projections. 2-D mediolateral oblique (MLO) and craniocaudad (CC) views of both breasts were obtained. CAD: Full Field Digital Mammography with Computer Added Detection was performed. COMPARISON: Comparison is made with prior study May 24, 2023 and May 23, 2022. FINDINGS: Breast Composition: The breasts are heterogeneously dense, which may obscure small masses. There are no dominant masses or suspicious calcifications. Stable fat-containing bilateral axillary lymph nodes. No other significant abnormalities are identified. There has been no significant change since the prior study. BI/SCRN MAMM (CAD)W/ELAN BILAT IMPRESSION: Stable bilateral screening mammogram. Yearly follow-up mammogram recommended. (A) ASSESSMENT CATEGORY: BIRADS Category 2: Benign. A letter regarding these results will be sent to the patient by the facility within 30 days. Approximately 10% of breast cancers are not detected by mammography. A normal mammogram should not delay biopsy of a clinically suspicious abnormality. [id number] Electronically Signed: Zachary Taylor MD at 12:26 EDT ,
== END | disposition home or self-care (01) ==
LOC: OPBI 10:36
PROVIDERS: PCP Family Medicine; Referring Provider Nurse Practitioner Women's Health; Visit Provider Nurse Practitioner Women's Health
DX: Z12.31 Encounter for screening mammogram for malignant neoplasm of breast (principal)
CPT/HCPCS: 77063; 77067

== ENCOUNTER → 2024-07-03 | Outpatient (CLI) | payer MEDICARE, OTHER, SELFPAY ==
[2024-07-03 12:14] LABS: Absolute Lymphocyte Count 1.12 X10^3/uL (0.83-4.51); Absolute Neutrophil Count 3.2 X10^3/uL (2.0-7.7); Basophil# 0.04 X10^3/uL; Basophil% 0.8 % (0-1); Eosinophil# 0.09 X10^3/uL; Eosinophils% 1.8 % (0-5); Hematocrit 39.5 % (37-47); Hemoglobin 12.9 g/dL (12.0-15.0); Lymphocyte # 1.12 X10^3/ul (0.83-4.51); Lymphocyte % 21.9 % (19-41); Mean Corp Hgb Conc 32.7 g/dL (32-36); Mean Corpuscular Hgb 31.2 pg (27.0-32.0); Mean Corpuscular Volume 95.6 fL (81-99); Mean Platelet Vol. 10.1 fl (6.2-12.0); Monocyte# 0.66 X10^3/uL; Monocyte% 12.9 % (0-10); NRBC Flagged by Analyzer 0 % (0-5); Neutrophil # 3.18 X10^3/uL (2.7-7.7); Platelet Count 264 K/mm3 (150-450); RBC Distribution Width CV 13.5 % (11.6-14.6); RBC Distribution Width SD 47.5 fl (35.1-43.9); Red Blood Count 4.13 M/mm3 (4.2-5.4); White Blood Count 5.1 K/mm3 (4.4-11.0)
[2024-07-03 13:02] LABS: AST(SGOT) 25 U/L (15-37); Alanine Aminotransfer ALT/SGPT 28 U/L (13-56); Albumin, Serum 4.1 g/dL (3.2-5.0); Alkaline Phosphatase 37 U/L (45-117); Bilirubin, Direct 0.15 mg/dL (0.00-0.30); CRP < 2.90 mg/L (0.0-3.0); Creatinine, Serum 0.96 mg/dL (0.55-1.02); EST Glomerular Filtration Rate 61 mL/min (>60); Est Glom Filt Rate - Afr Amer 73 mL/min (>60); Protein, Total 7.1 g/dL (6.4-8.2)
[2024-07-04 09:00] LABS: Erythrocyte Sedimentation Rate 4 mm/hr (0-30)
[2024-07-04 14:09] LABS: Anti-Mitochondrial AB <20.0 Units (0.0-20.0); Anti-Smooth Muscle ABS 3 Units (0-19)
== END | disposition home or self-care (01) ==
LOC: MTLAB 09:54
PROVIDERS: PCP Family Medicine; Referring Provider Internal Medicine Rheumatology; Visit Provider Internal Medicine Rheumatology
DX: R79.82 Elevated C-reactive protein (CRP) (principal); D72.829 Elevated white blood cell count, unspecified; Z79.899 Other long term (current) drug therapy
CPT/HCPCS: 36415; 80076; 82565; 83516; 85025; 85652; 86140

== ENCOUNTER → 2024-07-07 | Outpatient (CLI) | payer MEDICARE, OTHER, SELFPAY ==
[2024-07-07 11:06] LABS: AST(SGOT) 23 U/L (15-37); Alanine Aminotransfer ALT/SGPT 28 U/L (13-56); Albumin, Serum 3.8 g/dL (3.2-5.0); Alkaline Phosphatase 35 U/L (45-117); Bilirubin, Direct 0.13 mg/dL (0.00-0.30); Cholesterol 134 mg/dL (200); Globulin 3.2 g/dL (2.2-4.2); High Density Lipoprotein 53 mg/dL; Triglycerides 162 mg/dL; Very Low Density Lipoprotein 32 mg/dL (5-40)
== END | disposition home or self-care (01) ==
LOC: MTLAB 08:54
PROVIDERS: PCP Family Medicine; Referring Provider Nurse Practitioner Family; Visit Provider Nurse Practitioner Family
DX: E78.00 Pure hypercholesterolemia, unspecified (principal)
CPT/HCPCS: 36415; 80061; 80076

== ENCOUNTER → 2024-07-18 | Outpatient (CLI) | payer MEDICARE, OTHER, SELFPAY ==
--- NOTE | 2024-07-18 10:24 | RAD_ITS ---
EXAM: XR PELVIS, 1 OR 2 VIEWS CLINICAL INDICATION: PAIN TECHNIQUE: Frontal view of the pelvis. COMPARISON: CT including the pelvis October 20, 2021. FINDINGS: BONES/JOINTS: There was marked L5-S1 vacuum disc and disc space narrowing on prior CT, not well seen on this exam. No displaced fracture. No destructive or sclerotic lesions. Note that overlapping bowel shadows may however obscure fine detail. Sacroiliac joints are unremarkable. No widening of the pubic symphysis. The articular structures are unremarkable. SOFT TISSUES: Soft tissue calcifications are again noted flanks seen on prior CT. No soft tissue swelling or gas. RAD/Pelvis 1 or 2 Views IMPRESSION: No acute findings in the pelvis. Electronically Signed: Carmelina Hendrickson MD at 3:14 EST ,
[2024-07-18 12:56] LABS: ALB/GLOB Ratio 1.2 RATIO (0.9-2.4); AST(SGOT) 22 U/L (15-37); Alanine Aminotransfer ALT/SGPT 31 U/L (13-56); Alkaline Phosphatase 37 U/L (45-117); Anion Gap 6 (5-15); BUN 22 mg/dL (7-18); BUN/Creat Ratio 25.6 RATIO (10-20); Calcium,Total 9.7 mg/dL (8.5-10.1); Chloride 105 mmol/L (98-107); Creatinine, Serum 0.86 mg/dL (0.55-1.02); EST Glomerular Filtration Rate 69 mL/min (>60); Est Glom Filt Rate - Afr Amer 83 mL/min (>60); Free T3 2.6 pg/mL (2.18-3.98); Globulin 3.3 g/dL (2.2-4.2); Glucose 146 mg/dL (74-106); Potassium 4.1 mmol/L (3.5-5.1); Protein, Total 7.3 g/dL (6.4-8.2); Sodium Level 138 mmol/L (136-145); T4 Free Direct 1.18 ng/dL (0.76-1.46)
[2024-07-19 08:09] LABS: C-Peptide 3.9 ng/mL (1.1-4.4); Insulin Level 11.3 uIU/mL (2.6-24.9)
== END | disposition home or self-care (01) ==
PROVIDERS: PCP Family Medicine; Referring Provider Family Medicine; Visit Provider Family Medicine
DX: M54.50 Low back pain, unspecified (principal); E11.9 Type 2 diabetes mellitus without complications; E03.9 Hypothyroidism, unspecified; R53.83 Other fatigue
CPT/HCPCS: 36415; 72170; 80053; 82533; 83525; 84439; 84443; 84481; 84681

== ENCOUNTER → 2024-09-08 | Outpatient (CLI) | payer MEDICARE, OTHER, SELFPAY ==
--- NOTE | 2024-09-08 15:44 | RAD_ITS ---
PROCEDURE: Lumbar spine radiographs REASON FOR EXAM: Pain TECHNIQUE: 6 views of the lumbar spine COMPARISON: None. FINDINGS: See impression RAD/L/S Spine Comp/w Bending Views IMPRESSION: Vertebral body heights are within normal limits. No significant malalignment. [id number] multilevel disc space narrowing, greatest at L5-S1. Moderate multilevel facet arthropathy, greatest from L2 thr ough L5. Sacroiliac joints are intact. No gross pars defects. Negative for abnormal motion. Reading Location: [facility]
== END | disposition home or self-care (01) ==
LOC: MTRAD 15:41
PROVIDERS: PCP Family Medicine; Referring Provider Anesthesiology Pain Medicine; Visit Provider Anesthesiology Pain Medicine
DX: M51.372 Other intervertebral disc degeneration, lumbosacral region with discogenic back pain and lower extremity pain (principal)
CPT/HCPCS: 72114

== ENCOUNTER → 2024-11-06 | Outpatient (CLI) | payer MEDICARE, OTHER, SELFPAY ==
[2024-11-06 11:47] LABS: Absolute Lymphocyte Count 1.16 X10^3/uL (0.83-4.51); Absolute Neutrophil Count 3.6 X10^3/uL (2.0-7.7); Basophil# 0.04 X10^3/uL; Basophil% 0.7 % (0-1); Eosinophil# 0.17 X10^3/uL; Eosinophils% 3.1 % (0-5); Hematocrit 40.6 % (37-47); Lymphocyte # 1.16 X10^3/ul (0.83-4.51); Mean Corpuscular Hgb 30.5 pg (27.0-32.0); Mean Corpuscular Volume 95.3 fL (81-99); Mean Platelet Vol. 10.1 fl (6.2-12.0); Monocyte# 0.57 X10^3/uL; Monocyte% 10.3 % (0-10); NRBC Flagged by Analyzer 0 % (0-5); Neutrophil # 3.55 X10^3/uL (2.7-7.7); Neutrophil % 64.4 % (47-70); Platelet Count 230 K/mm3 (150-450); RBC Distribution Width SD 45.8 fl (35.1-43.9); Red Blood Count 4.26 M/mm3 (4.2-5.4); White Blood Count 5.5 K/mm3 (4.4-11.0)
[2024-11-06 12:10] LABS: Erythrocyte Sedimentation Rate 5 mm/hr (0-30)
[2024-11-06 12:18] LABS: AST(SGOT) 28 U/L (<=31); Alanine Aminotransfer ALT/SGPT 23 U/L (<=34); Albumin, Serum 4.4 g/dL (3.4-4.8); Alkaline Phosphatase 39 U/L (35-104); Bilirubin, Direct 0.15 mg/dL (0.00-0.30); Creatinine, Serum 0.97 mg/dL (0.70-1.20); EST Glomerular Filtration Rate 61 (>60); Globulin 2.5 g/dL (2.2-4.2); Protein, Total 6.9 g/dL (5.9-8.4); Total Bilirubin 0.31 mg/dL (0.00-1.30)
[2024-11-06 12:26] LABS: CRP < 3.00 mg/L (0.0-3.0)
== END | disposition home or self-care (01) ==
LOC: LAB 10:54
PROVIDERS: PCP Family Medicine; Referring Provider Internal Medicine Rheumatology; Visit Provider Internal Medicine Rheumatology
DX: R79.82 Elevated C-reactive protein (CRP) (principal); D72.829 Elevated white blood cell count, unspecified; Z79.899 Other long term (current) drug therapy
CPT/HCPCS: 36415; 80076; 82565; 85025; 85652; 86140

== ENCOUNTER → 2024-11-13 | Outpatient (CLI) | payer MEDICARE, OTHER, SELFPAY ==
[2024-11-13 11:52] LABS: Hemoglobin A1c 8.7 % (<=5.6)
[2024-11-13 11:54] LABS: Microalbumin,Random Urine 12.8 mg/L (NO RANGE EST.); Microalbumin:Creatinine Ratio 166.7 mg/g CRE
[2024-11-13 13:32] LABS: AST(SGOT) 28 U/L (<=31); Alanine Aminotransfer ALT/SGPT 24 U/L (<=34); Albumin, Serum 4.5 g/dL (3.4-4.8); Alkaline Phosphatase 37 U/L (35-104); Anion Gap 12 (5-15); BUN 24 mg/dL (4-19); BUN/Creat Ratio 25.4 RATIO (10-20); Bilirubin, Direct 0.13 mg/dL (0.00-0.30); Calcium,Total 9.9 mg/dL (7.6-11.0); Carbon Dioxide 24.4 mmol/L (21.0-32.0); Chloride 100 mmol/L (98-108); Cholesterol 120 mg/dL (<=200); Creatinine, Serum 0.94 mg/dL (0.70-1.20); EST Glomerular Filtration Rate 64 (>60); Globulin 2.6 g/dL (2.2-4.2); Glucose 214 mg/dL (70-99); High Density Lipoprotein 40 mg/dL; Low Density Lipoprotein Calc. 39 mg/dL; Potassium 4.1 mmol/L (3.3-5.1); Sodium Level 137 mmol/L (133-145); Total Bilirubin 0.26 mg/dL (0.00-1.30); Triglycerides 205 mg/dL; Very Low Density Lipoprotein 41 mg/dL (5-40)
== END | disposition home or self-care (01) ==
LOC: LAB 10:55
PROVIDERS: PCP Family Medicine; Referring Provider Internal Medicine Cardiovascular Disease; Visit Provider Internal Medicine Cardiovascular Disease
DX: E11.9 Type 2 diabetes mellitus without complications (principal); E78.5 Hyperlipidemia, unspecified; Z95.5 Presence of coronary angioplasty implant and graft
CPT/HCPCS: 36415; 80048; 80061; 80076; 82043; 82570; 83036

== ENCOUNTER → 2025-03-12 | Outpatient (CLI) | payer MEDICARE, OTHER, SELFPAY ==
[2025-03-12 12:12] LABS: Hematocrit 38.7 % (37-47); Hemoglobin 12.7 g/dL (12.0-15.0); Immature Granulocytes Count 0.020 X10^3/uL (0.0-0.0); Mean Corp Hgb Conc 32.8 g/dL (32-36); Mean Corpuscular Volume 96.8 fL (81-99); Mean Platelet Vol. 10.7 fl (6.2-12.0); NRBC Flagged by Analyzer 0 % (0-5); Platelet Count 260 K/mm3 (150-450); RBC Distribution Width CV 12.7 % (11.6-14.6); RBC Distribution Width SD 45.7 fl (35.1-43.9); Red Blood Count 4.00 M/mm3 (4.2-5.4); White Blood Count 5.2 K/mm3 (4.4-11.0)
[2025-03-12 14:12] LABS: AST(SGOT) 26 U/L (<=31); Alanine Aminotransfer ALT/SGPT 26 U/L (<=34); Albumin, Serum 4.3 g/dL (3.4-4.8); Alkaline Phosphatase 40 U/L (35-104); Bilirubin, Direct 0.13 mg/dL (0.00-0.30); CRP 3.47 mg/L (0.0-3.0); Globulin 2.4 g/dL (2.2-4.2)
[2025-03-13 13:09] LABS: Cytoplasmic Ab (C-ANCA) <1:20 titer (Neg:<1:20); Perinuclear Ab (P-ANCA) <1:20 titer (Neg:<1:20)
== END | disposition home or self-care (01) ==
PROVIDERS: PCP Family Medicine; Referring Provider Internal Medicine Rheumatology; Visit Provider Internal Medicine Rheumatology
DX: R79.82 Elevated C-reactive protein (CRP) (principal); D72.829 Elevated white blood cell count, unspecified; R76.8 Other specified abnormal immunological findings in serum; Z79.899 Other long term (current) drug therapy
CPT/HCPCS: 36415; 80076; 82565; 85025; 85652; 86037; 86140

== ENCOUNTER → 2025-03-27 | Outpatient (CLI) | payer MEDICARE, OTHER, SELFPAY ==
--- NOTE | 2025-03-27 09:01 | VDLE_ITS ---
Reason For Study Reason For Study: Pain RIGHT LEFT CFV is compressible, spontaneous, phasic, competent CFV is compressible, spontaneous, phasic, competent, and demonstrates normal augmentation. and demonstrates normal augmentation. FV is compressible, spontaneous, phasic, competent FV is compressible, spontaneous, phasic, competent and demonstrates normal augmentation. and demonstrates normal augmentation. POP V is compressible, spontaneous, phasic, competent POP V is compressible, spontaneous, phasic, competent and demonstrates normal augmentation. and demonstrates normal augmentation. T/P Trunk is compressible. T/P Trunk is compressible. PTV is compressible. PTV is compressible. RT PerV is compressible. LT PerV is compressible. SFJ is competent and measures 0.97 cm. SFJ is competent and measures 0.67 cm. GSV proximal thigh measures 0.61x0.61 cm. HX of GSV EVLA. GSV at knee measures 0.48x0.48 cm. SSV mid calf is competent and measures 0.35x0.36 cm. GSV INCOMPETENT throughout for greater than 0.5 seconds. ASV anterior proximal thigh is INCOMPETENT for greater than 0.5 seconds and measures 0.41x0.42 cm. ASV posterior proximal thigh is INCOMPETENT for greater than 0.5 seconds and measures 0.25x0.29 cm. SSV mid calf is competent and measures 0.25x0.23 cm. Procedure Exam performed in department. This is a venous duplex using B-mode, color flow and spectral Doppler. The exam was diagnostic. Patient was scanned in reverse Trendelenburg position during reflux assessment. VL/Venous Duplex US - Rod Extrem Interpretation Summary Deep veins of the bilateral lower extremities are patent and compressible segme ntally. There is no evidence of bilateral lower extremity deep vein thrombosis. The right great saphenous vein appears pa tent and compressible segmentally. Positive for reflux in the right great saphenous vein throughout, accessory sap henous veins in thigh. Ordering Physician: Galina Tavarez Referring Physician: Galina Tavarez Performed By: Gabriella Hampton RVT
== END | disposition home or self-care (01) ==
LOC: CVS 08:59
PROVIDERS: PCP Family Medicine; Referring Provider Family Medicine; Visit Provider Family Medicine
DX: R60.0 Localized edema (principal); M79.604 Pain in right leg; M79.605 Pain in left leg
CPT/HCPCS: 93970

== ENCOUNTER → 2025-05-12 | Outpatient (CLI) | payer MEDICARE, OTHER, SELFPAY ==
[2025-05-12 10:58] LABS: Anion Gap 10 (5-15); BUN 22 mg/dL (4-19); BUN/Creat Ratio 22.6 RATIO (10-20); Calcium,Total 9.6 mg/dL (7.6-11.0); Carbon Dioxide 26.6 mmol/L (21.0-32.0); Chloride 100 mmol/L (98-108); Glucose 288 mg/dL (70-99); Potassium 4.5 mmol/L (3.3-5.1); Pro- Brain NATRIURETIC PEPTIDE 74 pg/mL (<=900)
== END | disposition home or self-care (01) ==
LOC: LAB 09:39
PROVIDERS: PCP Family Medicine; Referring Provider Nurse Practitioner Family; Visit Provider Nurse Practitioner Family
DX: R06.09 Other forms of dyspnea (principal); E11.9 Type 2 diabetes mellitus without complications; R60.0 Localized edema; I10 Essential (primary) hypertension; Z95.5 Presence of coronary angioplasty implant and graft
CPT/HCPCS: 36415; 80048; 83880

== ENCOUNTER → 2025-06-05 | Outpatient (CLI) | payer MEDICARE, OTHER, SELFPAY ==
--- NOTE | 2025-06-05 13:51 | ECHOCS_ITS ---
Reason For Study Reason For Study: Dyspnea/SOB Procedure This was a 2D Doppler, Color Flow transthoracic echocardiogram. The study was technically difficult. Contrast injection was performed. Exam performed in department. Left Ventricle Normal LV size. Left ventricular systolic function is normal. The left ventricular ejection fraction is 60 %. Stage 1 diastolic dysfunction. Right Ventricle Normal RV size. Normal systolic function. Atria Normal left atrium. Normal right atrium. Mitral Valve Normal mitral valve. Tricuspid Valve Normal tricuspid valve. Mild (1+) tricuspid valve insufficiency. Pulmonary artery systolic pressure is 40 mmHg. Aortic Valve Normal aortic valve. Mild (1+) aortic valve insufficiency. Pulmonic Valve Normal pulmonic valve. Great Vessels Normal aortic root. The pulmonary artery is normal size. Inferior vena cava collapse with respiration. Pericardium/Pleural No pericardial effusion. Medication 22 gauge I.V. with prn adaptor inserted into right arm. Diluted definity 1ml given slow IV push to enhance endocardial definition. MMode/2D Measurements & Calculations LVIDd: 4.9 cm IVSd: 1.0 cm Ao root diam: 3.5 cm LVIDs: 3.1 cm LVPWd: 0.86 cm RVDd: 3.1 cm FS: 36.3 % LAV(MOD-bp): 42.4 ml LVAd ap4: 29.0 cm2 SV(MOD-sp4): 51.7 ml LAV(MOD-bp) Indexed: 22.1 ml/m2 LVLd ap4: 8.0 cm SI(MOD-sp4): 27.0 ml/m2 LAV(MOD-sp2): 48.0 ml EDV(MOD-sp4): 87.3 ml LAV(MOD-sp4): 37.3 ml EDV(sp4-el): 89.8 ml LVAs ap4: 16.1 cm2 LVLs ap4: 6.1 cm ESV(MOD-sp4): 35.6 ml ESV(sp4-el): 36.4 ml EF(MOD-sp4): 59.2 % EF(sp4-el): 59.5 % SV(sp4-el): 53.4 ml LA A4 area: 15.2 cm2 LA dimension(2D): 3.6 cm RA A4 area: 11.8 cm2 TAPSE: 1.7 cm Time Measurements MV dec time: 0.22 sec Doppler Measurements & Calculations MV E max rodrigo: 110.3 cm/sec Lat Peak E' Rodrigo: 9.7 cm/sec Med Peak E' Rodrigo: 6.9 cm/sec MV A max rodrigo: 119.6 cm/sec E/E' lat: 11.3 E/E' med: 16.0 MV E/A: 0.92 MV V2 max: 140.7 cm/sec MV P1/2t max rodrigo: 134.9 cm/sec Ao V2 max: 162.4 cm/sec MV max P.9 mmHg MV P1/2t: 85.0 msec Ao max P.6 mmHg MV V2 mean: 86.6 cm/sec MV dec slope: 464.7 cm/sec2 Ao V2 mean: 112.3 cm/sec MV mean P.5 mmHg MVA(P1/2t): 2.6 cm2 Ao mean P.8 mmHg MV V2 VTI: 42.1 cm Ao V2 VTI: 37.4 cm AI max rodrigo: 315.6 cm/sec LV V1 max: 117.7 cm/sec MR max rodrigo: 483.4 cm/sec AI max P.8 mmHg LV V1 max P.5 mmHg MR max P.5 mmHg AI dec slope: 252.4 cm/sec2 AI P1/2t: 366.2 msec PA V2 max: 96.9 cm/sec TR max rodrigo: 301.7 cm/sec TR max P.4 mmHg ECHO/Echo Complete W/ Contrast Interpretation Summary Normal LV size. Left ventricular systolic function is normal. The left ventricular ejection fraction is 60 %. Stage 1 diastolic dysfunction. Pulmonary artery systolic pressure is 40 mmHg. Contrast injection was performed. Ordering Physician: Jose De Jesus Mendez Referring Physician: Jose De Jesus Mendez Performed By: Hugo Smith RCS
== END | disposition home or self-care (01) ==
LOC: CVS 13:50
PROVIDERS: PCP Family Medicine; Referring Provider Nurse Practitioner Family; Visit Provider Nurse Practitioner Family
DX: R06.09 Other forms of dyspnea (principal)
CPT/HCPCS: 93306; Q9957; A4216; C8929

== ENCOUNTER → 2025-06-17 | Outpatient (CLI) | payer MEDICARE, OTHER, SELFPAY ==
--- NOTE | 2025-06-17 08:03 | BI_ITS ---
EXAM: SCRN MAMM (CAD)W/ELAN BILAT DATE: 06/17/2025 CLINICAL HISTORY: F, Age 74 y/o , SCREENING No family history. TECHNIQUE: Procedure Code: [id number] Modality: MG Procedure: SCRN MAMM (CAD)W/ELAN BILAT COMPARISON: Prior exam(s) dated May 30, 2024.. FINDINGS: TISSUE DENSITY: The breasts are heterogeneously dense, which may obscure small masses. Bilateral Breast Mammographic Findings: No significant masses, calcifications or other abnormalities are identified. Stable bilateral fat containing axillary lymph nodes. No suspicious masses, areas of developing architectural distortion, or suspicious calcifications. There has been no significant interval change. BI/SCRN MAMM (CAD)W/ELAN BILAT IMPRESSION: Stable bilateral screening mammogram. OVERALL FINAL ASSESSMENT BI-RADS 2: BENIGN RECOMMENDATION: Routine annual follow-up in 1 Year Additional Recommendation none A letter with findings and recommendations will be mailed to the patient. Reading Location: [facility]
== END | disposition home or self-care (01) ==
LOC: OPBI 08:02
PROVIDERS: PCP Family Medicine; Referring Provider Family Medicine; Visit Provider Family Medicine
DX: Z12.31 Encounter for screening mammogram for malignant neoplasm of breast (principal)
CPT/HCPCS: 77063; 77067

== ENCOUNTER → 2025-06-19 | Outpatient (CLI) | payer MEDICARE, OTHER, SELFPAY ==
--- NOTE | 2025-06-19 07:16 | US_ITS ---
PROCEDURE: ABD LIMITED W/ ELASTOGRAPHY REASON FOR EXAM: FATTY LIVER COMPARISON: Prior study dated May 23, 2024. TECHNIQUE: Procedure Code: [id number] Modality: US Procedure: ABD LIMITED W/ ELASTOGRAPHY Right upper quadrant abdominal ultrasound. [employer]Chop ElastQ Imaging shear wave elastography for non-invasive assessment of liver tissue stiffness. Estiven EPIQ Elite. FINDINGS: LIVER: Size: Unremarkable Length: 16.6 cm Echotexture: Diffusely echogenic suggesting fatty infiltration Contour: Normal Lesions: None identified Elastography: EQI Med: 5.1 kPa EQI Med Rodrigo: 1.29 m/s IQR/Med: 16.8 %* GALLBLADDER: No stones sludge wall thickening or tenderness. COMMON BILE DUCT: Normal measuring 4.6 mm . PANCREAS: Normal Visualized portions of the right kidney are unremarkable. No right upper quadrant ascites. US/ABD Limited w/ Elastography IMPRESSION: Mild hepatic fibrosis. Fatty infiltration of the liver. Reference Values: SRU <1.37 m/s (5.7kPa): No to mild fibrosis 1.37 m/s - 2.2 m/s: Moderate to severe fibrosis >2.2 m/s (15kPa): Significant fibrosis / cirrhosis METAVIR Score F2 or higher: 1.34 m/s (5.7kPa) F3 or higher: 1.55 m/s (7.3kPa) F4: 1.80 m/s (10kPa) * If the IQR/Med is >30%, the variance in the measurements is a large and the a ccuracy of the measurement may be in question. Reading Location: [id number]
--- OUTSIDE RECORDS SUMMARY | 2025-06-19 07:36 | XMS RPT_ITS | CCD ---
Author Organization [facility] Care Team Providers Care Car Stereo Installer Name Role Phone Tameka RN, Lachelle Amezcua Unavailable Unavailable Pat 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, Martha Ritter Unavailable Holly Tan Unavailable FLORENTIN Cherry, Elissa Dee Unavailable UnavailRichmond Briscoe Unavailable Unavailable LUZ MARINA Fair, Ghazala Dee Unavailable JUDE LEACH Attending Unavailable GALINA TAVAREZ Primary Care Unavailable Holly Tan Unavailable Dr. Galina Tavarez Primary Care Provider Dr. Galina Tavarez Referring Provider Vanessa 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, 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-C Guerita Galvin Attending Provider Gustabo 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, 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-C Devorah Dee Attending Provider Dr. Galina Tavarez Primary Care Provider Dr. Galina Tavarez Referring Provider [phone] Galina Tavarez Primary Care Provider Dr. Galina Tavarez Referring Provider Dr. Sekou Hebert Attending Provider Friend, Dr. Villegas Attending Provider Dr. Bakari Matthews Other Provider [phone] Dr. Galina Tavarez Primary Care Provider Dr. Galina Tavarez Referring Provider Dr. Bakari Matthews Attending Provider Dwight 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, 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-C Martha Attending Provider JOAQUIN Enamorado Attending Provider Roof 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, 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-C Guerita H Attending Provider Gustabo 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, 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-C Devorah M Attending Provider Dr. Galina Tavarez Primary Care Provider Dr. Galina Tavarez Referring Provider [phone] Dr. Galina Tavarez Primary Care Provider Dr. Galina Tavarez Referring Provider [phone] JOAQUIN Enamorado Attending Provider Roof 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, 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-C Guerita Kamar Attending Provider Gustabo 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, 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-C Devorah M Attending Provider Vanessa 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, 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-C Guerita Galvin Other Provider Dr. Sekou Hbeert Attending Provider Dr. Galina Tavarez Primary Care Provider [phone] Galina Tavarez Referring Provider [phone] Dr. Sekou Hebert Referring Provider Dr. Bakari Matthews Attending Provider [phone] Dr. Bakari Matthews Other Provider Dr. Galina Tavarez Primary Care Provider [phone] Galina Tavarez Referring Provider [phone] Roof 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, 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-C Guerita H Attending Provider Gustabo 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, 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-C Devorah Dee Attending Provider JOAQUIN Enamorado Attending Provider Dr. Galina Tavarez Primary Care Provider [phone] Roof 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, 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-C Guerita Galvin Attending Provider Dr. Galina Tavarez Referring Provider [phone] [place], Dr. Mojica Primary Care Provider [place], Dr. Mojica Referring Provider 1([facility])[phone] Roof 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, 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-C Guerita Galvin Attending Provider 1([facility])[phone] [place], Dr. Mojica Primary Care Provider 1([facility])[phone] [place], Dr. Mojica Referring Provider 1([facility])[phone] Friend, Dr. Villegas Attending Provider 1([facility])[phone] [place], Dr. Mojica Primary Care Provider 1([facility])[phone] [place], Dr. Mojica Referring Provider 1([facility])[phone] Friend, Dr. Villegas Attending Provider 1([facility])[phone] [place], Dr. Mojica Primary Care Provider 1([facility])[phone] [place], Dr. Mojica Referring Provider 1([facility])[phone] Roof 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, 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-C Guerita Galvin Attending Provider 1([facility])[phone] [place], Dr. Mojica Primary Care Provider 1([facility])[phone] [place], Dr. Mojica Referring Provider 1([facility])[phone] Roof 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, 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-C Guerita Galvin Attending Provider 1([facility])[phone] Friend, Dr. Villegas Attending Provider 1([facility])[phone] Friend, Dr. Villegas Other Provider 1([facility])[phone] Roof 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, 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-C Guerita Galvin Referring Provider 1([facility])[phone] Roof 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, 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-C Guerita Galvin Other Provider 1([facility])[phone] Sekou Hebert Attending Provider 1([facility])[phone] Galina Tavarez DO Primary Care Provider 1([facility])[phone] Raymundo Nichole Unavailable Irvin SANDERS, Christnia Unavailable Irvin SANDERS, Christina Unavailable Mercy PT, Kelli Unavailable DR GALINA TAVAREZ DO A Primary Care Physician DR GALINA TAVAREZ DO Primary Care Unavailable KIERAN MOODY MD Attending Unavailable [place], Dr. Mojica Primary Care Provider [phone] [place], Dr. Mojica Attending Provider 1([facility])[phone] [place], Dr. Mojica Referring Provider 1([facility])[phone] Sav SANDERS, Dr. Culp Attending Provider 1([facility] )[phone] Sav SANDERS, Dr. Culp Referring Provider 1([facility] )[phone] [place], Dr. Villegas Attending Provider Latisha SANDERS, Dr. Eddy Attending Provider 1([facility])[phone] Latisha SANDERS, Dr. Eddy Referring Provider 1([facility])[phone] [place], Dr. Mojica Primary Care Provider 1([facility])[phone] [place], Dr. Mojica Referring Provider 1([facility])[phone] Anup SANDERS, Dr. Sapp Attending Provider 1([facility]) [phone] Anup SANDERS, Dr. Sapp Referring Provider 1([facility])[phone] [place], Dr. Mojica Primary Care Provider 1([facility])[phone] Gely SANDERS, Dr. Torres Attending Provider 1([facility])[phone] Latisha SANDERS, Dr. Eddy Attending Provider 1([facility])[phone] Latisha SANDERS, Dr. Eddy Referring Provider 1([facility])[phone] [place], Dr. Mojica Attending Provider 1([facility])[phone] [place], Dr. Mojica Referring Provider 1([facility])[phone] Keith SANDERS, Dr. Klein Attending Provider 1([facility])[phone] [place], Dr. Mojica Primary Care Physician Gely SANDRES, Dr. Torres Attending Physician Latisha SANDERS, Dr. Eddy Attending Physician 1([facility])[phone] [place], Dr. Mojica Attending Physician 1([facility])[phone] Keith SANDERS, Dr. Klein Attending Physician 1([facility])[phone] Mariaa Dumas Attending Physician 1([facility])[phone] Vanessa PEDRAZA-Guerita Diaz Attending Physician 1([facility])[phone] [place] 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-C, Guerita Galvin Referring Provider Roof 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, Guerita Galvin Attending Unavailable Malys, Galina Primary Care Unavailable Malys, Galina Referring Unavailable Malys, Galina Primary Care Unavailable Malys, Galina Referring Unavailable Pat 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, Martha Attending Unavailable Malys, Galina Primary Care Unavailable Sav, Robbi Referring Unavailable SavRobbi Attending Unavailable Malys, Galina Primary Care Unavailable Malys, Galina Referring Unavailable Friend, Bakari Attending Unavailable Malys, Galina Primary Care Unavailable Malys, Galina Referring Unavailable Anup, Sekou Attending Unavailable Malys, Galina Primary Care Unavailable Malys, Galina Referring Unavailable Friend, Bakari Attending Unavailable Keith, Ernie Attending Unavailable Malys, Galina Primary Care Unavailable Malys, Galina Referring Unavailable Roof 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, Guerita H Referring Unavailable Roof 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, Guerita H Attending Unavailable Malys, Galina Primary Care Unavailable Malys, Galina Primary Care Unavailable Good, Surjit Referring Unavailable Good, Surjit Attending Unavailable Malys, Galina Primary Care Unavailable Good, Surjit Referring Unavailable Good, Surjit Attending Unavailable Malys, Galina Primary Care Unavailable Roof 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, Guerita H Referring Unavailable Roof 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, Guerita Galvin Attending Unavailable Malys, Galina Primary Care Unavailable Malys, Galina Referring Unavailable Malys, Galina Attending Unavailable Malys, Galina Primary Care Unavailable Anup, [place] Attending Unavailable Anup, Sekou Referring Unavailable Good, Surjit Attending Unavailable Malys, Galina Primary Care Unavailable Good, Surjit Referring Unavailable Malys, Galina Referring Unavailable Malys, Galina Primary Care Unavailable Malys, Galina Attending Unavailable Malys, Galina Referring Unavailable Malys, Galina Attending Unavailable Malys, Galina Primary Care Unavailable Roof 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, Guerita H Referring Unavailable Roof 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, Guerita Galvin Attending Unavailable Malys, Galina Primary Care Unavailable Malys, Galina Primary Care Unavailable Malys, Galina Referring Unavailable Mariaa Jasso Attending Unavailable Allergies Allergy Classification Reported Allergen(s) Allergy Type Date of Onset Reaction(s) Facility (20 sources) codeshelia; Translations: [codeine] drug allergy 1 Unknown [facility] Work Phone: (7 sources) esomeprazole drug allergy 1 causes elevated LFTs vicod [facility] Work Phone: (7 sources) iodine drug allergy 1 [facility] Work Phone: [phone] (8 sources) levoFLOXacin; Translations: [Levofloxacin] drug allergy 1 Nausea, GI upset [facility] Work Phone: [phone] (9 sources) niacin; Translations: [niacin] drug allergy 8 Intolerance [facility] Work Phone: [phone] ([phone] sources) Sulfonamides (Antibiotic) drug allergy 1 Causes elevated Lfts vicod [facility] Work Phone: [phone] (20 sources) Esomeprazole Drug Allergy 2 Causes elevated LFTs [facility] (20 sources) HYDROcodone; Translations: [hydrocodone bitartrate] Drug Allergy 2 Itching [facility] (20 sources) levoFLOXacin Drug Allergy 7 Intolerance [facility] (20 sources) Sulfonamides (Antibiotic); Translations: [Sulfa (Sulfonamide Antibiotics)] Propensity to adverse reactions 9 Causes elevated LFTs [facility] (20 sources) Iodinated Contrast Media; Translations: [Iodinated Contrast Media] Allergy to substance 2 Anaphylaxis [facility] (20 sources) Niacin Preparations; Translations: [Niacin Preparations] Propensity to adverse reactions 2 Other [facility] (2 sources) Acetaminophen / HYDROcodone; Translations: [acetaminophen-hy drocodone] Drug Allergy 7 Itching [facility] (1 source) cat scan dye [Other] Propensity to adverse reactions 6 Intolerance [facility] (1 source) Contrast media Drug allergy numbness/synco pe [facility] (1 source) Esomeprazole Drug Allergy 5 [facility] (1 source) levoFLOXacin Drug Allergy 5 [facility] Medications Current Medications Medication Drug Class(es) Dates Sig (Normalized) Sig (Original) 8 hr acetaminophen 650 mg extended release oral tablet (15 sources) Start: 10-02-2023 take 2 tablets by mouth every twelve hours Start: 10-02-2023 take 1300 mg by mout h every twelve hours Acetaminophen Active 1300 MG PO Q12H October 02, 2023 1:00am allopurinol 100 mg oral tablet (20 sources) Xanthine Oxidase Inhibitor Start: 03-07-2021 take 1 tablet by mouth once daily amLODIPine 5 mg oral tablet (20 sources) Dihydropyridine Calcium Channel Te Start: 01-04-2024 End: 03-04-2025 take 1 tablet by mouth once daily Start: 01-04-2024 End: 01-04-2024 take 5 mg by mouth once daily Amlodipine 10 mg tablet Discontinued 5 mg PO DAILY January 04, 2024 9:47am January 04, 2024 10:15am Start: 10-02-2023 End: 01-04-2024 take 1 tablet by mouth once daily Amlodipine 10 mg tablet Discontinued 10 mg PO DAILY 90 3 October 02, 2023 10:44am January 04, 2024 9:53am Start: 10-24-2022 End: 10-02-2023 take 1 tablet by mouth once daily Amlodipine 5 mg tablet Discontinued 5 mg PO DAILY October 24, 2022 11:32am October 02, 2023 10:45am Start: 09-19-2022 End: 10-24-2022 take 2 tablets by mouth once daily Amlodipine 5 mg tablet Discontinued 10 mg PO DAILY 90 September 19, 2022 10:05am October 24, 2022 11:34am Start: 09-19-2022 End: 10-24-2022 take 10 mg by mouth once daily Amlodipine Discontinued 10 MG PO DAILY September 19, 2022 10:05am October 24, 2022 11:34am Start: 10-21-2018 End: 09-19-2022 take 1 tablet by mouth once daily Amlodipine 5 mg tablet Discontinued 5 mg PO DAILY 90 December 05, 2021 4:37pm September 19, 2022 10:06am Start: 09-16-2018 End: 10-21-2018 take 2.5 mg by mouth once daily Amlodipine 5 mg tablet Discontinued 2.5 mg PO DAILY 15 October 10, 2018 2:34pm October 21, 2018 4:52pm Start: 09-16-2018 End: 10-21-2018 take 2.5 mg by mouth once daily Amlodipine Discontinue d 2.5 MG PO DAILY October 10, 2018 2:34pm October 21, 2018 4:52pm Start: 06-26-2018 End: 09-16-2018 take 1 tablet by mouth once daily Amlodipine 5 mg tablet Discontinued 5 mg PO DAILY 28 06June 26, 2018 1:00am September 16, 2018 3:39pm ascorbic acid 500 mg oral tablet (20 sources) Vitamin C Start: 03-10-2021 take 1 tablet by mouth once daily aspirin 81 mg chewable tablet (20 sources) Nonsteroidal Anti-inflammatory Drug Start: 05-12-2025 take 1 tablet by mouth once daily Start: 08-23-2017 End: 01-04-2024 Aspirin (Adult Low Dose Aspi rin) 81 mg tablet,delayed release (DR/EC) Discontinued 81 mg PO daily August 23, 2017 1:00am January 04, 2024 10:10am Start: 03-06-2017 take 1 tablet by keny th once daily ASPIR-81 81 MG TBEC One tablet by mouth daily ASPIRIN [id number] Martha Stewart 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 Start: 03-06-2017 take 1 tablet by keny th once daily ASPIR-81 81 MG TBEC One tablet by mouth daily ASPIRIN [id number] Martha Stewart 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 Start: 06-03-2014 End: 08-23-2017 take 1 tablet by mouth twice daily at mealtime Aspirin 325 MG tablet Discontinued 325 mg PO TWICE DAILY WITH MEALS 60 0 June 03, 2014 1:00am August 23, 2017 9:03am Start: 05-19-2014 End: 06-03-2014 take 1 tablet by mouth once daily Aspirin 81 MG Tab.Chew Discontinued 81 mg PO DAILY@0800 May 19, 2014 12:00am June 03, 2014 10:41am Start: 03-06-2013 take 1 tablet by keny th once daily ASPIRIN 81 MG TABS One tablet by mouth daily ASPIRIN [id number] Galina Tavarez DO Start: 05-30-2012 take 1 tablet by keny th once daily ECOTRIN 325 MG TBEC One tablet by mouth daily ASPIRIN [id number] Aj Schilling MD Start: 05-30-2012 take 1 tablet by keny th once daily ECOTRIN 325 MG TBEC One tablet by mouth daily ASPIRIN [id number] Aj Schilling MD Start: 07-31-2007 End: 03-06-2017 take 1 tablet by mouth once daily aspirin, enteric coated (ASPIRIN LOW DOSE) 81 mg EC tablet Take 81 mg by mouth once daily. 03/16/2021 Active Start: 07-31-2007 take 1 tablet by keny th once daily ASPIRIN 81 MG TABS One tablet by mouth daily ASPIRIN [id number] Sekou Hebert MD benzonatate 100 mg oral capsule (20 sources) Non-narcotic Antitussive Start: 06-23-2022 take 200 mg by mouth three times daily Benzonatate Active 200 MG PO THREE TIMES A DAY June 23, 2022 1:00am Start: 08-17-2019 End: 01-14-2020 take 1 capsule by mouth three times daily as needed for cough Benzonatate 200 mg capsule Discontinued 200 mg PO THREE TIMES A DAY as needed for cough 30 August 17, 2019 1:00am January 14, 2020 11:40am Ca Carb-Ca Gluc-Mg Ox-Mg Gluco (6 sources) Start: 04-06-2020 take 1 mg by mouth once daily Ca Carb-Ca Gluc-Mg Ox-Mg Gluco Active 2000 MG PO DAILY April 06, 2020 8:59am Calcium Citrate / Vitamin D (1 source) Start: 07-05-2010 calcium-vitami n D Dose = 1 tab(s), Chewed, Daily, 0 Refill(s), current med (Hx) Start Date: 07/05/10 Status: Ordered CALCIUM-MAGNESIUM ORAL (1 source) CALCIUM-MAGNESIU M ORAL Take by mouth once daily. Aissatou/mag 2000 mg/600 mg Active colestipol hydrochloride 1000 mg oral tablet (20 sources) Bile Acid Sequestrant Start: 11-06-2024 Start: 05-15-2024 End: 11-06-2024 Colestipol 1 gram tablet Discontinued 3 g PO daily November 06, 2024 10:16am November 06, 2024 11:30am Start: 04-06-2020 End: 04-08-2021 take 1 tablet by mouth once daily Colestipol 1 gram tablet Discontinued 1 g PO TWICE A DAY April 06, 2020 12:00am April 08, 2021 11:40am swallow whole tab w/any liquid;do not crush/chew/cut;administer other meds 1hr before/4hr after taking dose take 1 tablet by keny th twice daily colestipol (COLESTID) 1 gram tablet Take 1 g by mouth twice daily. Active D-Mannose (15 sources) Start: 10-02-2023 take 1 capsule by mo uth once daily, then take 1 capsule by mouth once Start: 10-02-2023 take 1 capsule by mo uth once daily, then take 1 capsule by mouth once D-Mannose (Azo D-Mannose) 500 mg capsule Active 500 mg PO DAILY October 02, 2023 1:00am Complies with drug therapy Start: 10-02-2023 take 1 capsule by mo uth once daily, then take 1 capsule by mouth once D-Mannose (Azo D-Mannose) 500 mg capsule Active 500 mg PO DAILY October 02, 2023 1:00am Start: 10-02-2023 take 1 capsule by mo uth once daily, then take 1 capsule by mouth once D-Mannose (Azo D-Mannose) 500 mg capsule Active 500 MG PO DAILY October 02, 2023 1:00am Start: 10-02-2023 take 1 mg by mouth once D-Sibley ose (Azo D-Mannose) 500 mg capsule Active MG PO October 02, 2023 12:00am ergocalciferol (D2) 1000 units oral tablet (1 source) Start: 07-14-2014 take 2 tablets by mouth once daily ergocalciferol (D2) 1000 units oral tablet 2 tab(s), Oral, qDay, 0 Refill(s) Start Date: 07/14/14 Status: Ordered estradiol 0.1 mg/ml vaginal cream (20 sources) Estrogen Start: 01-04-2024 Start: 07-12-2021 End: 01-04-2024 Estradiol (Estrace) 0.01 % ( 0.1 mg/gram) cream Discontinued 1 g VAGINAL TWICE A WEEK July 12, 2021 11:30am January 04, 2024 9:53am Start: 09-18-2018 End: 07-12-2021 Estradiol (Estrace) 0.01 % ( 0.1 mg/gram) cream Discontinued 1 g VAGINAL EVERY WEEK September 18, 2018 1:00am July 12, 2021 11:33am PT states she dosen't need to take while here. Start: 03-06-2017 ESTRACE 0.1 MG /GM CREA use as directed 2 nights per week ESTRADIOL [id number] Martha Stewart 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 Start: 03-06-2017 ESTRACE 0.1 MG /GM CREA use as directed 2 nights per week ESTRADIOL [id number] Martha Stewart 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 Start: 12-13-2015 estradiol (EST RACE) 0.01 % (0.1 mg/gram) vaginal cream Indications: Postmenopausal atrophic vaginitis Use small amount at vaginal opening 1-2 times per week. 1 Tube 1 12/13/2015 Active Start: 09-03-2014 End: 03-06-2017 ESTRACE CREA apply vaginally as needed ESTRADIOL CREA [id number] Martha Stewart 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 Start: 09-03-2014 ESTRACE CREA a pply vaginally as needed ESTRADIOL CREA [id number] Galina Tavarez DO Start: 09-03-2014 End: 03-06-2017 ESTRACE CREA apply vaginally as needed ESTRADIOL CREA [id number] Martha Stewart 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 Start: 09-03-2014 ESTRACE CREA a pply vaginally as needed ESTRADIOL CREA [id number] Gailna Tavarez DO Start: 05-19-2014 End: 10-11-2017 Estradiol 42.5 GM cream Disc ontinued 1 g VAGINAL WE May 19, 2014 12:00am October 11, 2017 1:25pm Start: 05-19-2014 End: 10-11-2017 Estradiol Discontinued 1 GM VAGINAL WE May 19, 2014 12:00am October 11, 2017 1:25pm famotidine 20 mg oral tablet (20 sources) Histamine-2 Receptor Antagonist Start: 03-16-2021 take 1 tablet by mouth once daily at bedtime famotidine (PEPCID) 20 mg tablet Take 20 mg by mouth daily at bedtime. 03/16/2021 Active Start: 05-29-2019 End: 01-14-2020 take 1 tablet by mouth once daily Famotidine (Pepcid) 20 mg tablet Discontinued 20 mg PO DAILY May 29, 2019 12:00am January 14, 2020 11:40am Fiber (20 sources) Start: 10-31-2022 take 1 tablet by mouth once da jun Start: 10-31-2022 take 1 tablet by mouth once da jun Fiber Tablet Active 2 {tbl} PO DAILY October 31, 2022 12:00am Complies with drug therapy Start: 10-31-2022 take 1 tablet by mouth once da jun Fiber Tablet Active 2 {tbl} PO DAILY October 31, 2022 12:00am Start: 10-31-2022 take 2 tablets by mo uth once daily Fiber Active 2 TABLET PO DAILY October 31, 2022 12:00am Start: 10-31-2022 take 1 tablet by mouth once da jun Fiber Active 1 TABLET PO DAILY October 30, 2022 11:00pm Start: 10-31-2022 take 1 tablet by mouth once da jun Fiber Active 1 TABLET PO DAILY October 31, 2022 12:00am furosemide 40 mg oral tablet (2 sources) Loop Diuretic Start: 05-06-2025 take 1 tablet by mouth once daily gabapentin 300 mg oral capsule (20 sources) Anti-epileptic Agent Start: 11-06-2024 take 1 capsule by mouth twice daily Start: 10-02-2023 End: 11-06-2024 take 1 capsule by mouth once daily Gabapentin 300 mg capsule Discontinued 300 mg PO DAILY October 02, 2023 10:20am November 06, 2024 10:18am Start: 03-07-2021 End: 10-02-2023 take 1 capsule by mouth twice daily Gabapentin 300 mg capsule Discontinued 300 mg PO TWICE A DAY 180 1 January 10, 2022 2:10pm October 02, 2023 10:24am Start: 01-14-2020 End: 03-07-2021 take 1 capsule by mouth three times daily Gabapentin 300 mg capsule Discontinued 300 mg PO THREE TIMES A DAY January 14, 2020 12:00am March 07, 2021 2:12pm glipiZIDE er 10 mg 24 hr extended release oral tablet (20 sources) Sulfonylurea Start: 11-13-2024 take 1 tablet by keny twice daily Start: 01-23-2023 End: 11-13-2024 take 1 tablet by mouth once daily Glipizide 10 mg tablet extended release 24hr Discontinued 10 mg PO DAILY January 23, 2023 11:17am November 13, 2024 10:17am Start: 01-10-2022 End: 01-23-2023 take 1 tablet by mouth twice daily Glipizide 10 mg tablet extended release 24hr Discontinued 10 mg PO TWICE A DAY January 10, 2022 12:00am January 23, 2023 11:20am Start: 07-12-2021 End: 01-10-2022 take 1 tablet by mouth once daily in the evening Glipizide 2.5 mg tablet extended release 24hr Discontinued 2.5 mg PO EVERY EVENING July 12, 2021 1:00am January 10, 2022 1:21pm Start: 07-12-2021 End: 01-10-2022 take 1 tablet by mouth once daily in the morning Glipizide 5 mg tablet extended release 24hr Discontinued 5 mg PO EVERY MORNING July 12, 2021 1:00am January 10, 2022 1:21pm Start: 09-16-2018 End: 03-07-2021 take 1 tablet by mouth once daily Glipizide 2.5 mg tablet extended release 24hr Discontinued 2.5 mg PO DAILY September 16, 2018 1:00am March 07, 2021 2:10pm glipiZIDE 2.5 mg / metFORMIN hydrochloride 250 mg oral tablet (1 source) Biguanide, Sulfonylurea take 1 tablet by mouth twice daily before mealtime glipiZIDE-metFORMIN (METAGLIP) 2.5-250 mg tablet Take 1 tablet by mouth twice daily before meals. Active hydroCHLOROthiazide 25 mg oral tablet (11 sources) Thiazide Diuretic Start : 11-26 End: 02-06 take 1 tablet by mouth once daily ipratropium bromide 0.042 mg/actuat metered dose nasal spray (20 sources) Anticholinergic Start : 07-12 Ipratropium [place] Active 2 SPRAY INTRANASAL DAILY July 12, 2021 11:31am Start: 07-12-2021 Start: 07-12-2021 Ipratropium Br omide Active 2 SPRAY INTRANASAL NEEDED July 12, 2021 1:00am Start: 05-29-2019 End: 03-07-2021 Ipratropium [place] 0.03 % spray,non-aerosol Discontinued 2 NMA INTRANASAL TWICE A DAY May 29, 2019 12:00am March 07, 2021 2:10pm Start: 05-29-2019 End: 03-07-2021 Ipratropium [place] Disconti nued 2 SPRAY INTRANASAL TWICE A DAY May 29, 2019 12:00am March 07, 2021 2:10pm Start: 03-06-2017 ATROVENT HFA 1 7 MCG/ACT AERS use as directed IPRATROPIUM BROMIDE HFA [id number] Martha S Dwight 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 Start: 03-06-2017 ATROVENT HFA 1 7 MCG/ACT AERS use as directed IPRATROPIUM BROMIDE HFA [id number] Martha S Pat 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 Start: 03-06-2017 ATROVENT HFA 1 7 MCG/ACT AERS use as directed IPRATROPIUM BROMIDE HFA [id number] Martha S Dwight 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 Start: 03-23-2015 End: 03-06-2017 take 2 spray(s) nasal route once daily ATROVENT 0.06 % SOLN 2 sprays each nostril once daily IPRATROPIUM BROMIDE [id number] Martha S Pat 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 Start: 03-23-2015 take 2 spray(s) nasa l route once daily ATROVENT 0.06 % SOLN 2 sprays each nostril once daily IPRATROPIUM BROMIDE [id number] Galina Tavarez DO Start: 03-23-2015 End: 03-06-2017 take 2 spray(s) nasal route once daily ATROVENT 0.06 % SOLN 2 sprays each nostril once daily IPRATROPIUM BROMIDE [id number] Martha S Pat 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 Start: 03-23-2015 take 2 spray(s) nasa l route once daily ATROVENT 0.06 % SOLN 2 sprays each nostril once daily IPRATROPIUM BROMIDE [id number] Galina Tavarez DO Start: 03-23-2015 End: 03-06-2017 take 2 spray(s) nasal route once daily ATROVENT 0.06 % NASAL SOLN 2 sprays each nostril once daily IPRATROPIUM BROMIDE [id number] Martha Stewart NP Start: 03-23-2015 take 2 spray(s) nasa l route once daily ATROVENT 0.06 % NASAL SOLN 2 sprays each nostril once daily IPRATROPIUM BROMIDE [id number] Galina Tavarez DO Start: 03-23-2015 take 2 spray(s) nasa l route once daily ATROVENT 0.06 % NASAL SOLN 2 sprays each nostril once daily IPRATROPIUM BROMIDE [id number] Galina Tavarez DO Start: 06-01-2014 End: 10-11-2017 Ipratropium Chesaning 1 SPRAY spray,non-aerosol Discontinued 2 spry NASAL THREE TIMES A DAY as needed for RHINITIS June 01, 2014 1:00am October 11, 2017 1:25pm Start: 06-01-2014 End: 10-11-2017 Ipratropium Chesaning Disconti nued 2 spry NASAL THREE TIMES A DAY June 01, 2014 1:00am October 11, 2017 1:25pm Start: 05-27-2014 End: 06-15-2015 take 2 spray(s) nasal route twice daily as needed ATROVENT 0.03 % SOLN Two sprays in each nostril twice a day as needed for allegies IPRATROPIUM BROMIDE [id number] Galina Tavarez DO Start: 05-27-2014 take 2 spray(s) nasa l route twice daily as needed ATROVENT 0.03 % SOLN Two sprays in each nostril twice a day as needed for allegies IPRATROPIUM BROMIDE [id number] Galina Tavarez DO Start: 05-27-2014 IPRATROPIUM BR OMIDE 0.03 % SOLN Nasal spray as directed IPRATROPIUM BROMIDE [id number] Sekou Hebert MD Start: 05-27-2014 End: 06-15-2015 take 2 spray(s) nasal route twice daily as needed ATROVENT 0.03 % SOLN Two sprays in each nostril twice a day as needed for allegies IPRATROPIUM BROMIDE [id number] Galina A Malys, DO Start: 05-27-2014 take 2 spray(s) nasa l route twice daily as needed ATROVENT 0.03 % SOLN Two sprays in each nostril twice a day as needed for allegies IPRATROPIUM BROMIDE [id number] Galina A Chuyys, DO Start: 05-27-2014 End: 06-15-2015 take 2 spray(s) nasal route twice daily as needed ATROVENT 0.03 % NASAL SOLN Two sprays in each nostril twice a day as needed for allegies IPRATROPIUM BROMIDE [id number] Galina A Malys, DO Start: 05-27-2014 take 2 spray(s) nasa l route twice daily as needed ATROVENT 0.03 % NASAL SOLN Two sprays in each nostril twice a day as needed for allegies IPRATROPIUM BROMIDE [id number] Galina A Malys, DO Start: 05-27-2014 End: 06-15-2015 take 2 spray(s) nasal route twice daily as needed ATROVENT 0.03 % NASAL SOLN Two sprays in each nostril twice a day as needed for allegies IPRATROPIUM BROMIDE [id number] Galina A Malys, DO Start: 05-19-2014 End: 06-01-2014 take 0.5 mg by inhalation three times daily as needed for wheezing Ipratropium Chesaning 0.5 MG/2.5 ML Solution Discontinued 0.5 mg INHALATION THREE TIMES A DAY as needed for Wheezing May 19, 2014 12:00am June 01, 2014 7:39pm lactobacillus acidophilus [id number] unt oral capsule (20 sources) Start: 01-26-2022 take 10 capsules by mouth once daily liothyronine sodium 0.005 mg oral tablet (20 sources) l-Triiodothyronine Start: 10-31-2022 take 1 tablet by mouth once daily 24 hr metFORMIN hydrochloride 500 mg extended release oral tablet (20 sources) Biguanide Start: 01-04-2024 take 1 tablet by mouth twice daily Start: 10-02-2023 End: 01-04-2024 take 1 tablet by mouth once daily in the evening Metformin 500 mg tablet extended release 24 hr Discontinued 500 mg PO EVERY EVENING October 02, 2023 10:19am January 04, 2024 9:53am Start: 01-23-2023 End: 10-02-2023 Metformin 500 mg tablet exte nded release 24 hr Discontinued 1000 mg PO EVERY EVENING January 23, 2023 11:13am October 02, 2023 10:24am Start: 01-23-2023 End: 10-02-2023 take 1000 mg by mouth once daily in the evening Metformin Discontinued 1000 MG PO EVERY EVENING January 23, 2023 11:13am October 02, 2023 10:24am Start: 09-10-2017 End: 01-23-2023 take 1 tablet by mouth twice daily Metformin 500 mg tablet extended release 24 hr Discontinued 500 mg PO TWICE A DAY September 10, 2017 11:02am January 23, 2023 11:20am Start: 08-23-2017 End: 09-10-2017 take 1 tablet by mouth once daily Metformin 500 mg tablet extended release 24 hr Discontinued 500 mg PO daily August 23, 2017 1:00am September 10, 2017 11:04am Start: 09-23-2015 End: 03-06-2017 take 1 tablet by mouth once daily METFORMIN HCL ER 500 MG [id number] One tablet by mouth daily METFORMIN HCL [id number] Martha Stewart 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 Start: 09-23-2015 take 1 tablet by keny once daily in the morning GLUCOPHAGE XR 500 MG [id number] 1 po daily in AM METFORMIN HCL [id number] Galina Tavarez DO Start: 09-23-2015 End: 03-06-2017 take 1 tablet by mouth once daily in the morning GLUCOPHAGE XR 500 MG [id number] 1 po daily in AM METFORMIN HCL [id number] Martha Stewart 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 Start: 09-23-2015 End: 03-06-2017 take 1 tablet by mouth once daily in the morning GLUCOPHAGE XR 500 MG [id number] 1 po daily in AM METFORMIN HCL [id number] Martha Stewart 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 Start: 09-23-2015 take 1 tablet by keny th once daily in the morning GLUCOPHAGE XR 500 MG [id number] 1 po daily in AM METFORMIN HCL [id number] Galina Tavarez DO metFORMIN (GLUCO PHAGE) 1,000 mg tablet Take 500 mg by mouth twice daily. Active methenamine hippurate 1000 mg oral tablet (7 sources) Start: 09-18-2018 take 1 g by mouth twice daily Methenamine Hippurate Active 1 GM PO TWICE A DAY September 18, 2018 2:11pm take 1 g by mouth twice daily ME THENAMINE HIPPURATE ORAL Take 1 g by mouth twice daily. Active naloxone hydrochloride 40 mg/ml nasal spray (1 source) Opioid Antagonist Start: 03-10-2021 naloxone 4 mg/actuation nasal spray (NARCAN) Use 1 spray in one nostril as needed for overdose. May repeat every 2 to 3 minutes in alternating nostrils until medical assistance is available 2 Each 03/10/2021 Active nitroglycerin 0.4 mg sublingual tablet (20 sources) Nitrate Vasodilator Start: 08-31-2017 End: 06-16-2020 Start: 08-31-2017 End: 06-16-2020 Nitroglycerin Active 0.4 MG SL every 5 to 15 minutes June 16, 2020 8:52pm until response; do not exceed 3 doses per event Start: 11-01-2009 End: 03-06-2017 NITROSTAT 0.4 MG SUBL 1 tabl et under tongue every 5 min up to 3 times as needed NITROGLYCERIN [id number] Galina Tavarez DO omeprazole 40 mg delayed release oral capsule (20 sources) Proton Pump Inhibitor Start: 2020 take 1 capsule by mouth once daily Start: 09-16-2018 End: 2020 take 4 capsules by mouth once daily Omeprazole 10 mg capsule,delayed release(DR/EC) Discontinued 40 mg PO DAILY September 16, 2018 3:08pm 2020 3:16pm Start: 09-16-2018 End: 2020 take 40 mg by mouth once daily Omeprazole Discontinued 40 MG PO DAILY September 16, 2018 3:08pm 2020 3:16pm Start: 04-22-2018 End: 09-16-2018 take 1 capsule by mouth once daily Omeprazole 10 mg capsule,delayed release(DR/EC) Discontinued 10 mg PO DAILY April 22, 2018 12:00am September 16, 2018 3:12pm Start: 08-23-2017 End: 10-11-2017 take 1 capsule by mouth once daily Omeprazole 40 mg capsule,delayed release(DR/EC) Discontinued 40 mg PO daily August 23, 2017 1:00am October 11, 2017 1:26pm Start: 11-24-2014 End: 03-06-2017 take 1 tablet by mouth twice daily OMEPRAZOLE 40 MG CPDR One tablet by mouth twice daily OMEPRAZOLE [id number] Galina A Corby, DO Start: 11-24-2014 take 1 tablet by keny once daily OMEPRAZOLE 40 MG CPDR One tablet by mouth daily OMEPRAZOLE [id number] Galina A Malys, DO Start: 05-16-2010 End: 11-30-2011 take 1 tablet by mouth once daily OMEPRAZOLE 40 MG CPDR One tablet by mouth daily OMEPRAZOLE [id number] Martha Stewart NP ondansetron 4 mg disintegrating oral tablet (6 sources) Serotonin-3 Receptor Antagonist Start: 10-20-2021 take 4 mg by mouth every eight hours Ondansetron Active 4 MG PO Q8H October 20, 2021 11:55am pioglitazone 15 mg oral tablet (20 sources) Peroxisome Proliferator Receptor alpha Agonist, Peroxisome Proliferator Receptor gamma Agonist, Thiazolidinedione Start: 11-13-2024 take 1 tablet by mouth once daily Start: 10-31-2022 End: 10-02-2023 take 1 tablet by mouth once daily Pioglitazone 30 mg tablet Discontinued 30 mg PO DAILY October 31, 2022 12:00am October 02, 2023 10:19am levothyroxine sodium 0.125 m g oral capsule (20 sources) l-Thyroxine Start: 05-15-2024 take 1 capsule by mo [facility] once daily Start: 10-02-2023 End: 05-15-2024 take 1 tablet by mouth once daily Levothyroxine 100 mc g tablet Discontinued 100 ug PO DAILY October 02, 2023 1:00am May 15, 2024 1:42pm Start: 01-23-2023 End: 10-02-2023 Levothyroxine 125 mcg tablet Discontinued 125 ug PO DAILY January 23, 2023 12:00am October 02, 2023 10:17am Take 2 tablets on Sunday and 1 tablet all other days Start: 09-19-2022 End: 01-23-2023 Levothyroxine 100 mcg tablet Discontinued 125 ug PO DAILY September 19, 2022 9:33am January 23, 2023 11:13am 125 mcg daily except on Sunday Start: 09-19-2022 End: 01-23-2023 take 125 ug by mouth once daily Levothyroxine Disconti nued 125 MCG PO DAILY September 19, 2022 9:33am January 23, 2023 11:13am 125 mcg daily except on Sunday Start: 03-06-2017 take 1 tablet by mouth once da jun SYNTHROID 100 MCG TABS One tablet by mouth daily LEVOTHYROXINE SODIUM [id number] Martha Stewart 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 Start: 03-06-2017 take 1 tablet by mouth once da jun SYNTHROID 100 MCG TABS One tablet by mouth daily LEVOTHYROXINE SODIUM [id number] Martha Stewart 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 Start: 07-05-2010 take 1 dose by mouth once win y Synthroid Dose : 100 mcg =, PO, Daily, 0 Refill(s), current med (Hx) Start Date: 07/05/10 Status: Ordered Start: 05-11-2008 take 1 tablet by keny th once daily for thyroid dysfunction SYNTHROID 100 MCG TABS One tablet by mouth daily for thyroid in AM LEVOTHYROXINE SODIUM [id number] Torres Magana DO Start: 05-11-2008 take 1 tablet by mouth once da jun SYNTHROID 100 MCG TABS One tablet by mouth daily LEVOTHYROXINE SODIUM [id number] Shruthi Dias Start: 05-11-2008 take 1 tablet by keny th once daily for thyroid dysfunction SYNTHROID 100 MCG TABS One tablet by mouth daily for thyroid in AM LEVOTHYROXINE SODIUM [id number] Galina Tavarez DO Start: 05-11-2008 take 1 tablet by keny th once daily for thyroid dysfunction SYNTHROID 100 MCG TABS One tablet by mouth daily for thyroid LEVOTHYROXINE SODIUM [id number] Galina Tavarez DO Start: 05-11-2008 End: 03-06-2017 take 1 tablet by mouth once daily for thyroid dysfunction SYNTHROID 100 MCG TABS One tablet by mouth daily for thyroid in AM LEVOTHYROXINE SODIUM [id number] Martha Devis 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 Start: 05-11-2008 End: 03-06-2017 take 1 tablet by mouth once daily for thyroid dysfunction SYNTHROID 100 MCG TABS One tablet by mouth daily for thyroid in AM LEVOTHYROXINE SODIUM [id number] Martha Ritter Pat 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 Start: 05-11-2008 take 1 tablet by keny th once daily for thyroid dysfunction SYNTHROID 100 MCG TABS One tablet by mouth daily for thyroid in AM LEVOTHYROXINE SODIUM [id number] Torres Goldie Izzy DO Start: 05-11-2008 take 1 tablet by mouth once da jun SYNTHROID 100 MCG TABS One tablet by mouth daily LEVOTHYROXINE SODIUM [id number] Shruthi Dias Start: 05-11-2008 take 1 tablet by keny th once daily for thyroid dysfunction SYNTHROID 100 MCG TABS One tablet by mouth daily for thyroid LEVOTHYROXINE SODIUM [id number] Galina Tavarez DO Start: 05-11-2008 take 1 tablet by keny th once daily for thyroid dysfunction SYNTHROID 100 MCG TABS One tablet by mouth daily for thyroid in AM LEVOTHYROXINE SODIUM [id number] Galina Tavarez DO Start: 01-20-2008 End: 09-19-2022 Levothyroxine 100 mcg tablet Discontinued 100 ug PO DAILY July 12, 2021 11:27am September 19, 2022 9:35am 100 mcg daily except 200 mcg on Sunday triamcinolone acetonide 1 mg /ml topical cream (20 sources) Corticosteroid Start: 07-12-2021 End: 01-23-2023 Start: 07-12-2021 End: 01-23-2023 Triamcinolone Acetonide 0.1 % cream Discontinued 1 NMA TOPICAL TWICE A DAY July 12, 2021 1:00am January 23, 2023 11:20am Start: 04-12-2015 End: 06-10-2015 TRIAMCINOLONE ACETONIDE 0.5 % CREA apply to affected area 1-2 times daily TRIAMCINOLONE ACETONIDE [id number] Galina Tavarez DO Start: 04-12-2015 End: 06-10-2015 TRIAMCINOLONE ACETONIDE 0.5 % CREA apply to affected area 1-2 times daily TRIAMCINOLONE ACETONIDE [id number] Galina Tavarez DO ursodiol 250 mg oral tablet (20 sources) Bile Acid Start: 05-22-2025 take 1 tablet by keny twice daily Start: 10-31-2022 End: 09-10-2023 take 20 mg by mouth twice daily Ursodiol Discontinued 20 MG PO TWICE A DAY 60 May 07, 2023 3:44pm September 10, 2023 2:27pm Start: 12-06-2021 End: 05-22-2025 take 1 tablet by mouth twice daily Ursodiol 250 mg tablet Discontinued 250 mg PO TWICE A DAY 60 May 02, 2024 1:10pm May 15, 2024 2:25pm vitamin e 180 mg oral capsul e (15 sources) Start: 10-02-2023 take 1 capsule by [facility] once daily Completed/Discontinued Medications Medication Drug Class(es) Dates Sig [...] every eight hours as needed for headache PARPXWEPFJ-YSLJ-[id number] AFFEINE 50-325-40 MG TABS 1 po every 8 hours as needed for headaches MIWUWKVGTG-CUSD-V AFFEINE [id number] Galina Tavarez DO acetaminophen 325 mg / oxyCODONE hydrochloride 5 mg oral tablet (20 sources) Opioid Agonist Start: 06-03-2014 End: 09-10-2017 Oxycodone-Acetami nophen 1 TABLET tablet Discontinued 1 {tbl} PO EVERY 4 HOURS NEEDED as needed for PAIN 90 0 June 03, 2014 1:00am September 10, 2017 11:03am Start: 06-03-2014 End: 09-10-2017 take 1 tablet by mouth every four hours as needed Oxycodone-Acetaminophen Discontinued 1 TABLET PO EVERY 4 HOURS NEEDED 90 June 03, 2014 1:00am September 10, 2017 11:03am amoxicillin 500 mg oral capsule (20 sources) Penicillin-class Antibacterial Start: 05-19-2014 End: 06-03-2014 take 1 capsule by mouth every twelve hours Amoxicillin 500 MG capsule Discontinued 500 mg PO Q12H May 19, 2014 12:00am June 03, 2014 10:41am azithromycin 250 mg oral tablet (14 sources) Macrolide Antimicrobial Start: 05-04-2015 End: 06-10-2015 take 2 tablets by mouth once daily, then take 1 tablet by mouth once daily, then take 2-5 tablets by mouth AZITHROMYCIN 250 MG TABS 2 po daily on day 1 then 1 po daily on days 2-5 AZITHROMYCIN [id number] Galina Tavarez DO calcium carbonate 1500 mg oral tablet (20 sources) Start: 05-19-2014 End: 01-14-2020 Calcium Carbonate 600 MG tablet Discontinued 2000 mg PO DAILY@799May 19, 2014 12:00am January 14, 2020 11:40am Start: 05-19-2014 End: 01-14-2020 take 2000 mg by mouth once daily Calcium Carbonate Discontinued 2000 MG PO DAILY@799May 19, 2014 12:00am January 14, 2020 11:40am CALCIUM/MAGNESIUM 2000MG (4 sources) Start: 03-06-2017 take 1 tablet by mouth once daily CALCIUM/MAGNESIUM 2000MG One tablet by mouth daily CALCIUM/MAGNESIUM 2000MG Martha Stewart 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 Start: 03-06-2017 take 1 tablet by keny th once daily CALCIUM/MAGNESIUM 2000MG One tablet by mouth daily CALCIUM/MAGNESIUM 2000MG Martha Stewart 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 cetirizine hydrochloride 10 mg oral tablet (20 sources) Histamine-1 Receptor Antagonist Start: 10-11-2017 End: 03-12-2018 take 1 tablet by mouth once daily Cetirizine (Zyrtec) 10 mg tablet Discontinued 10 mg PO daily 30 October 11, 2017 12:00am March 12, 2018 1:35pm cholecalciferol 1.25 mg oral capsule (20 sources) Vitamin D Start: 2020 End: 03-07-2021 take 1 capsule by mouth every week Cholecalciferol (Vitamin D3) 1,250 mcg (50,000 unit) capsule Discontinued 1250 ug PO EVERY WEEK 2020 1:00am March 07, 2021 2:09pm Start: 04-06-2020 End: 2020 take 1 capsule by mouth once daily Cholecalciferol (Vitamin D3) 50 mcg (2,000 unit) capsule Discontinued 50 ug PO DAILY April 06, 2020 12:00am 2020 3:18pm Start: 05-27-2014 take 1 tablet by keny th twice daily VITAMIN D 2000 UNIT TABS One tablet by mouth twice daily CHOLECALCIFEROL [id number] Sekou Hebert MD Start: 05-19-2014 End: 10-11-2017 take 1 tablet by mouth once daily Cholecalciferol (Vitamin D3) 2,000 UNIT tablet Discontinued 2000 U PO DAILY May 19, 2014 12:00am October 11, 2017 1:25pm clopidogrel 75 mg oral tablet (20 sources) [id number] Platelet Inhibitor Start: 06-17-2020 End: 05-06-2025 take 1 tablet by mouth once daily Clopidogrel (Plavix) 75 mg tablet Discontinued 75 mg PO DAILY August 20, 2024 12:19pm May 06, 2025 10:19am Start: 11-18-2009 End: 05-30-2012 take 1 tablet by mouth once daily PLAVIX 75 MG TABS One tablet by mouth daily CLOPIDOGREL BISULFATE [id number] Aj Schilling MD cranberry preparation 250 mg oral capsule (20 sources) Non-Standardized Food Allergenic Extract, Non-Standardized Plant Allergenic Extract Start: 01-26-2022 End: 10-02-2023 take 1 tablet by mouth once daily Cranberry Extract 250 mg Tablet Discontinued 250 mg PO DAILY January 26, 2022 12:00am October 02, 2023 10:24am Start: 01-26-2022 End: 10-02-2023 take 250 mg by mouth once daily Cranberry Extract Discontinued 250 MG PO DAILY January 26, 2022 12:00am October 02, 2023 10:24am Start: 01-26-2022 End: 10-02-2023 take 250 mg by mouth once daily Cranberry Extract Discontinued 250 MG PO DAILY January 25, 2022 11:00pm October 02, 2023 9:24am Start: 01-26-2022 take 250 mg by mouth once daily Cranberry Extract Active 250 MG PO DAILY January 25, 2022 11:00pm Start: 01-26-2022 take 250 mg by mouth once daily Cranberry Extract Active 250 MG PO DAILY January 26, 2022 12:00am dapagliflozin 10 mg oral tablet (8 sources) Sodium-Glucose Cotransporter 2 Inhibitor Start: 01-01-2025 End: 03-18-2025 take 1 tablet by mouth once daily Dapagliflozin Propanediol (Farxiga) 10 mg tablet Discontinued 10 mg PO DAILY 28 06January 07, 2025 4:00pm March 18, 2025 8:03am Check pricing ergocalciferol 2000 unt oral tablet (4 sources) Provitamin D2 Compound Start: 03-06-2017 take 1 tablet by mouth once daily VITAMIN D2 2000 UNIT TABS One tablet by mouth daily ERGOCALCIFEROL [id number] Martha Stewart NP ezetimibe 10 mg oral tablet (14 sources) Dietary Cholesterol Absorption Inhibitor Start: 11-01-2009 End: 11-30-2011 take 1 tablet by mouth once daily ZETIA 10 MG TABS One tablet by mouth daily EZETIMIBE [id number] Aj Schilling MD fenofibrate 200 mg oral capsule (20 sources) Peroxisome Proliferator Receptor alpha Agonist Start: 04-08-2021 End: 03-31-2025 take 1 capsule by mouth once daily in the evening Fenofibrate Micronized 200 mg capsule Discontinued 200 mg PO EVERY EVENING 90 3 April 11, 2024 11:03am March 31, 2025 2:57pm fish oil (20 sources) Start: 03-06-2017 take 1 tablet by mouth once daily [facility] FISH OIL 1000 MG CAPS One tablet by mouth daily OMEGA-3 FATTY ACIDS [id number] Martha Stewart NP Start: 03-06-2017 take 1 tablet by keny th once daily [facility] FISH OIL 1000 MG CAPS One tablet by mouth daily OMEGA-3 FATTY ACIDS [id number] Martha Stewart 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 Start: 03-07-2011 End: 03-06-2017 take 3 tablets by mouth once daily FISH OIL CAPS Three tablets by mouth daily OMEGA-3 FATTY ACIDS CAPS [id number] Martha Stewart 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 Start: 03-07-2011 take 3 tablets by mo uth once daily FISH OIL CAPS Three tablets by mouth daily OMEGA-3 FATTY ACIDS CAPS [id number] Sekou Hebert MD Start: 03-07-2011 take 1 tablet by keny th once daily FISH OIL CAPS One tablet by mouth daily OMEGA-3 FATTY ACIDS CAPS [id number] Shruthi Dias Start: 03-07-2011 End: 03-06-2017 take 3 tablets by mouth once daily FISH OIL CAPS Three tablets by mouth daily OMEGA-3 FATTY ACIDS CAPS [id number] Martha Stewart 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 Start: 03-07-2011 take 3 tablets by mo uth once daily FISH OIL CAPS Three tablets by mouth daily OMEGA-3 FATTY ACIDS CAPS [id number] Sekou Hebert MD Start: 03-07-2011 take 1 tablet by keny th once daily FISH OIL CAPS One tablet by mouth daily OMEGA-3 FATTY ACIDS CAPS [id number] Shruthi Dias Start: 07-05-2010 Fish Oil See I nstructions, 0 Refill(s), current med (Hx) Start Date: 07/05/10 Status: Ordered fluconazole 200 mg oral tablet (14 sources) Azole Antifungal Start: 03-23-2015 End: 05-04-2015 take 1 tablet by mouth every week DIFLUCAN 200 MG TABS 1 po weekly x 2 weeks FLUCONAZOLE [id number] Galina Tavarez, fluticasone propionate 0.05 mg/actuat metered dose nasal spray (20 sources) Corticosteroid Start: 09-18-2018 End: 05-29-2019 Fluticasone Propionate (Flonase Allergy Relief) 50 mcg/actuation spray,suspension Discontinued 2 NMA INTRANASAL DAILY September 18, 2018 1:00am May 29, 2019 1:31pm Start: 09-18-2018 End: 05-29-2019 Fluticasone Propionate (Flon ase Allergy Relief) 50 mcg/actuation spray,suspension Discontinued 2 SPRAY INTRANASAL DAILY September 18, 2018 1:00am May 29, 2019 1:31pm Start: 03-12-2018 End: 04-22-2018 Fluticasone Propionate 50 mc g/actuation spray,suspension Discontinued 1 NMA INTRANASAL daily March 12, 2018 12:00am April 22, 2018 11:53am Start: 03-12-2018 End: 04-22-2018 Fluticasone Propionate Disco ntinued 1 SPRAY INTRANASAL daily March 12, 2018 12:00am April 22, 2018 11:53am GLUCOMETER (7 sources) Start: 09-23-2015 GLUCOMETER use daily as directed DX E11.9 GLUCOMETER Galina Tavarez DO Start: 09-23-2015 GLUCOMETER use daily as directed DX E11.9 GLUCOMETER Galina Tavarez DO Vargqskb-Bee-Pljzs-Npg559-By al (Yypkgl-Vedmk-Oqs (With Antiox)) 500-500-66.7 mg tablet (6 sources) Start: 09-10-2017 End: 10-11-2017 Dljlkete-Xxk-Rpjvo-Byw331-Mh al (Vlkjpu-Nfazo-Asd (With Antiox)) 500-500-66.7 mg tablet Discontinued 1 {tbl} PO daily 0 September 10, 2017 1:00am October 11, 2017 1:25pm Start: 09-10-2017 End: 10-11-2017 Pvaxwecb-Nua-Kmjmv-Eps322-Qg al (Lowahw-Ugyjf-Dwm (With Antiox)) 500-500-66.7 mg tablet Discontinued 1 {tbl} PO daily September 10, 2017 1:00am October 11, 2017 1:25pm bmxdeinerqe-owh-qkwhsjdpg-hr b 149-hyalur 500 mg-500 mg-66.7 mg tablet (20 sources) Start: 09-10-2017 End: 10-11-2017 take 1 tablet by mouth once daily cpwxradtdby-ckj-swnnubhmz-hrb 149-hyalur 500 mg-500 mg-66.7 mg tablet Discontinued 1 TABLET PO daily September 10, 2017 11:04am October 11, 2017 1:25pm Start: 09-10-2017 End: 10-11-2017 take 1 tablet by mouth once daily jqvqzbqvdye-txv-bfonyawda-hrb 149-hyalur 500 mg-500 mg-66.7 mg tablet Discontinued 1 TABLET PO daily September 10, 2017 12:00am October 11, 2017 12:25pm Start: 09-10-2017 End: 10-11-2017 take 1 tablet by mouth once daily shvejzxuwlr-cmw-qvllsotcn-hrb 149-hyalur 500 mg-500 mg-66.7 mg tablet Discontinued 1 TABLET PO daily September 10, 2017 1:00am October 11, 2017 1:25pm GLUCOSE BLOOD (4 sources) Start: 10-26-2015 ONETOUCH ULTRA BLUE STRP use to check sugars daily as directed DX 11.9 GLUCOSE BLOOD [id number] Torres A Izzy DO Start: 10-26-2015 ONETOUCH ULTRA BLUE STRP use to check sugars daily as directed DX 11.9 GLUCOSE BLOOD [id number] Torres A Izzy DO GLUCOSE BLOOD (2 sources) Start: 10-26-2015 ONETOUCH ULTRA BLUE STRP use to check sugars daily as directed DX 11.9 GLUCOSE BLOOD [id number] Torres A Izzy DO GLUCOSE BLOOD (1 source) Start: 10-26-2015 ONETOUCH ULTRA BLUE STRP use to check sugars daily as directed DX 11.9 GLUCOSE BLOOD [id number] Torres A Izzy DO 3 ml insulin detemir 100 unt/ml pen injector (20 sources) Insulin Analog Start: 02-15-2022 End: 08-02-2022 Insulin Detemir U-100 (Levemir Flextouch U-100 Insuln) 100 unit/mL (3 mL) insulin pen Discontinued 16 U SC 0800 February 15, 2022 2:09pm August 02, 2022 9:29am Start: 01-26-2022 End: 02-15-2022 Insulin Detemir U-100 (Levem ir Flextouch U-100 Insuln) 100 unit/mL (3 mL) insulin pen Discontinued 10 U SC 0800 January 26, 2022 12:00am February 15, 2022 2:11pm 3 ml insulin glargine 100 unt/ml pen injector (15 sources) Insulin Analog Start: 01-04-2024 End: 05-15-2024 Insulin Glargine (Basaglar Kwikpen U-100 Insulin) 100 unit/mL (3 mL) insulin pen Discontinued 30 U SC DAILY January 04, 2024 9:52am May 15, 2024 1:42pm Start: 11-13-2023 End: 01-04-2024 Insulin Glargine (Basaglar K wikpen U-100 Insulin) 100 unit/mL (3 mL) insulin pen Discontinued 12 U SC DAILY November 13, 2023 12:00am January 04, 2024 9:53am 24 hr isosorbide mononitrate 30 mg extended release oral tablet (20 sources) Start: 06-23-2020 End: 05-31-2021 take 1 tablet by mouth once daily, then take 1 tablet by mouth every twenty-four hours Isosorbide Mononitrate 30 mg tablet extended release 24 hr Discontinued 30 mg PO DAILY 28 06June 23, 2020 1:00am May 31, 2021 11:31am Start: 05-30-2012 take 1 tablet by keny th once daily IMDUR 30 MG [id number] One half tablet by mouth daily ISOSORBIDE MONONITRATE [id number] Aj Schilling MD Start: 05-30-2012 End: 09-03-2012 take 1 tablet by mouth once daily IMDUR 30 MG [id number] One half tablet by mouth daily ISOSORBIDE MONONITRATE [id number] Aj Schilling MD Start: 05-30-2012 take 1 tablet by keny th once daily IMDUR 30 MG [id number] One half tablet by mouth daily ISOSORBIDE MONONITRATE [id number] Aj Schilling MD Start: 05-30-2012 End: 09-03-2012 take 1 tablet by mouth once daily IMDUR 30 MG [id number] One half tablet by mouth daily ISOSORBIDE MONONITRATE [id number] Aj Schilling MD ketotifen 0.25 mg/ml ophthalmic solution (14 sources) Histamine-1 Receptor Inhibitor Start: 09-03-2014 End: 06-10-2015 ALAWAY 0.025 % SOLN One drop in each eye twice daily for dry eyes KETOTIFEN FUMARATE [id number] Galina Goldie Tavarez, DO Start: 09-03-2014 ALAWAY 0.025 % SOLN One drop in each eye twice daily for dry eyes KETOTIFEN FUMARATE [id number] Galina A Corby, DO Start: 09-03-2014 End: 06-10-2015 ALAWAY 0.025 % SOLN One drop in each eye twice daily for dry eyes KETOTIFEN FUMARATE [id number]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 06/25/24 09:26 11/13/24 10:12 05/12/25 07:26 Height 5 ft 1 in 5 ft 1 in 5 ft 1 in Intake Visit Reasons: 6 M FU Allergies hydrocodone bitartrate (From Vicodin) Allergy (Verified 05/12/25 08:59) Itching Iodinated Contrast Media Allergy (Verified 05/12/25 08:59) Anaphylaxis codeine Adverse Reaction (Severe, Verified 05/12/25 08:59) Unknown esomeprazole (From Nexium) Adverse Reaction (Severe, Verified 05/12/25 08:59) Causes elevated LFTs Sulfa (Sulfonamide Antibiotics) Adverse Reaction (Severe, Verified 05/12/25 08:59) Causes elevated LFTs levofloxacin (From Levaquin) Adverse Reaction (Verified 05/12/25 08:59) Nausea/Vom/Diarrhea Niacin Preparations Adverse Reaction (Verified 05/12/25 08:59) Other Medications ???Medication ???Instructions ???Recorded ???Confirmed ???Type nitroglycerin 0.4 mg sublingual 0.4 mg sublingual Q5-15M PRN chest 06/16/20 06/04/25 Rx tablet pain #25 tabs omeprazole 40 mg capsule,delayed 40 mg PO DAILY 09/14/20 06/04/25 H istory release allopurinol 100 mg tablet 100 mg PO DAILY 03/07/21 06/04/25 History ipratropium bromide 42 mcg (0.06 2 spray intranasal PRN PRN Runny 1 09/12/20 06/04/25 History %) nasal spray Nose Lactobacillus acidophilus 10 10,000 mmu cells PO DAILY 01/26/22 06/04/25 History billion cell capsule (Probiotic) ascorbic acid (vitamin C) 500 mg 500 mg PO DAILY 01/26/22 06/04/25 History tablet (Vitamin C) fiber 2 tab PO DAILY 10/31/22 06/04/25 H istory liothyronine 5 mcg tablet 5 mcg PO DAILY 10/31/22 06/04/25 H istory triamcinolone acetonide 0.1 % 1 applic topical BID PRN pain 12/2906/04/25 History topical cream acetaminophen 650 mg 1,300 mg PO Q12H 10/02/23 06/04/25 History tablet,extended release d-mannose 500 mg capsule (AZO 500 mg PO DAILY 10/02/23 06/04/25 History D-Mannose) vitamin E (dl, acetate) 180 mg 180 mg PO DAILY 10/02/23 06/04/25 History (400 unit) capsule estradiol 0.01% (0.1 mg/gram) 1 g vaginal 3XW 01/04/24 06/04/25 History vaginal cream (Estrace) metformin 500 mg tablet,extended 500 mg PO BID 01/04/24 06/04/25 Hi story release 24 hr levothyroxine 125 mcg capsule 125 mcg PO QDAY 05/15/24 06/04/25 History colestipol 1 gram tablet 1 g PO TID #180 tabs 11/06/2401/21 Rx gabapentin 300 mg capsule 300 mg PO BID 11/06/24 06/04/25 Hi story glipizide 10 mg tablet, extended 10 mg PO BID 11/13/24 06/04/25 His tory release 24 hr pioglitazone 15 mg tablet 15 mg PO QDAY 11/13/24 06/04/25 Hi story hydrochlorothiazide 25 mg tablet 25 mg PO DAILY #90 tabs 02/06/25 1 08/04/24 Rx metoprolol tartrate 100 mg tablet 100 mg PO BID #180 tabs 02/06/25 06/04/25 Rx rosuvastatin 20 mg tablet 20 mg PO QHS #90 tabs 02/06/2501/21 Rx amlodipine 5 mg tablet 5 mg PO DAILY #90 tabs 03/04/25 Rx losartan 50 mg tablet 50 mg PO DAILY #90 tabs 03/04/25 1 08/04/24 Rx fenofibrate micronized 200 mg 200 mg PO QPM #90 caps 03/31/25 Rx capsule furosemide 40 mg tablet (Lasix) 40 mg PO QDAY 05/06/25 06/04/25 Hi story potassium chloride 20 mEq 20 meq PO QDAY 05/06/25 06/04/25 H istory tablet,extended release aspirin 81 mg chewable tablet 81 mg PO QDAY 05/12/25 06/04/25 Hi story ursodiol 250 mg tablet 250 mg PO BID 90 days #180 TABLETS 05/22/25 06/04/25 Rx Have you fallen in the past year?: No PFSH Medical History History of echocardiogram Ambulates with cane Wears glasses Post-menopausal Thyroid disease High cholesterol Excessive bleeding Easy bruising Dietary restriction Gastric reflux Non-smoker CPAP (continuous positive airway pressure) dependence Sleep apnea Leg cramps History of edema History of stress test Hypertension Cardiology follow-up encounter Obesity P-ANCA titer positive Nausea Atrophic vaginitis History of Velazquez's esophagus Essential (primary) hypertension Lumbar disc disease Hyperlipidemia History of OR (myocardial infarction) Leg pain Leg edema Abnormal biliary HIDA scan Abdominal pain Diarrhea Back pain Dermatitis due to sun Arthritis Hypothyroidism Syncope and collapse Premature ventricular contractions Dizziness Diabetes mellitus Dyspnea, unspecified Cough Atherosclerosis of coronary artery of [place] heart without angina pectoris Surgical History S/P trigger finger release History of (more content not included)... Normal [facility] Anion gap in Serum or Plasma Ordered By: Guerita Mendez on 05-12-2025 Anion gap [Moles/Vol] 10 mmol/L 12-11 [facility] BUN/creatinine ratioOrdered By: Guerita Mendez on 05-12-2025 Urea nitrogen/Creatinine [Mass ratio] 22.6 mg/mg High 05-18 [facility] Basic Metabolic Profile (BMP )on 05-12-2025 BUN/CRE 22.6 RATIO High 05-18 [facility] Comment on above: Performed By: #### L 501.1105, L500.3400, L100.0100, L101.9900, L501.6710, L800.1280, L803.2200 #### [facility] [address] [place], [address] Calcium [Mass/Vol] 9.6 mg/dL Normal 7.6-11.0 [facility] Comment on above: Performed By: #### L 501.1105, L500.3400, L100.0100, L101.9900, L501.6710, L800.1280, L803.2200 #### [facility] [address] [place], [address] Chloride [Moles/Vol] 100 mmol/L Normal 98-108 [facility] Comment on above: Performed By: #### L 501.1105, L500.3400, L100.0100, L101.9900, L501.6710, L800.1280, L803.2200 #### [facility] [address] [place], [address] CO2 [Moles/Vol] 26.6 mmol/L Normal 21.0-32.0 [facility] Comment on above: Performed By: #### L 501.1105, L500.3400, L100.0100, L101.9900, L501.6710, L800.1280, L803.2200 #### [facility] [address] [place], [address] Creatinine [Mass/Vol] 0.97 mg/dL Normal 0.70-1.20 [facility] Comment on above: Performed By: #### L 501.1105, L500.3400, L100.0100, L101.9900, L501.6710, L800.1280, L803.2200 #### [facility] [address] [place], [address] GAP 10 Normal 5-15 [facility] Comment on above: Performed By: #### L 501.1105, L500.3400, L100.0100, L101.9900, L501.6710, L800.1280, L803.2200 #### [facility] [address] [place], [address] GFR/1.73 sq M.predicted among non-blacks MDRD (S/P/Bld) [Vol rate/Area] 61 mL/min/{1.73_m2} Normal >60 [facility] Comment on above: Result Comment: mL/m in/1.73m2 CKD-EPI Creatinine Equation (2020) Performed By: #### L 501.1105, L500.3400, L100.0100, L101.9900, L501.6710, L800.1280, L803.2200 #### [facility] [address] [place], [address] Glucose [Mass/Vol] 288 mg/dL High 70-99 [facility] Comment on above: Performed By: #### L 501.1105, L500.3400, L100.0100, L101.9900, L501.6710, L800.1280, L803.2200 #### [facility] [address] [place], [address] Potassium [Moles/Vol] 4.5 mmol/L Normal 3.3-5.1 [facility] Comment on above: Result Comment: Hemo lysis present, Results??could be affected. ?? Performed By: #### L 501.1105, L500.3400, L100.0100, L101.9900, L501.6710, L800.1280, L803.2200 #### [facility] [address] [place], [address] Sodium [Moles/Vol] 137 mmol/L Normal 133-145 [facility] Comment on above: Performed By: #### L 501.1105, L500.3400, L100.0100, L101.9900, L501.6710, L800.1280, L803.2200 #### [facility] [address] [place], [address] Urea nitrogen [Mass/Vol] 22 mg/dL High 4-19 [facility] Comment on above: Performed By: #### L 501.1105, L500.3400, L100.0100, L101.9900, L501.6710, L800.1280, L803.2200 #### [facility] [address] [place], [address] Carbon dioxide, total [Moles /volume] in Central venous bloodOrdered By: Guerita Mendez on 05-12-2025 CO2 [Moles/Vol] 26.6 mmol/L 21.0-32.0 [facility] Cardiology Visit Reporton Cardiology Visit Report [facility] [address] [place] [address] OFFICE VISIT Date of Service: 05/12/25 MR#: [id number] Acct: [id number] Name: KORIN HARPER Rep #: [id number] : 1950 Provider: ROBERT polanco Age/Sex: 74/F Location: [facility] Status: Signed HPI HPI History of Present Illness Details: KORIN HARPER, is a 74 F who presents to the office today for a cardiovascular outpatient follow-up. She has a history of coronary artery disease status status post drug-eluting stent to LCx and LAD in April 2007, drug-eluting stent to mid RCA on 06/18/2020, hypertension, hyperlipidemia, diabetes type II, and TOYIN with CPAP therapy. She denies chest, arm, jaw, or neck discomfort. She denies palpitations. She states bilateral lower extremity edema. She denies claudication. She states shortness of breath with activity when in a hurry. She can do similar activity and distance at a slower pace without shortness of breath. She denies shortness of breath at rest, orthopnea, or PND. She denies chronic cough. She denies significant, sudden weight gain. She denies lightheadedness, dizziness, near-syncope, or syncope. She denies blood in urine, blood in stool, or epistaxis. He denies fever with chills. She denies myalgia. She denies fatigue. Her exercise level has remained stable, but she ambulates at a slow pace. 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 Is patient in pain?: No Allergies hydrocodone bitartrate (From Vicodin) Allergy (Verified 05/12/25 08:59) Itching Iodinated Contrast Media Allergy (Verified 05/12/25 08:59) Anaphylaxis codeine Adverse Reaction (Severe, Verified 05/12/25 08:59) Unknown esomeprazole (From Nexium) Adverse Reaction (Severe, Verified 05/12/25 08:59) Causes elevated LFTs Sulfa (Sulfonamide Antibiotics) Adverse Reaction (Severe, Verified 05/12/25 08:59) Causes elevated LFTs levofloxacin (From Levaquin) Adverse Reaction (Verified 05/12/25 08:59) Nausea/Vom/Diarrhea Niacin Preparations Adverse Reaction (Verified 05/12/25 08:59) Other Medications ???Medication ???Instructions ???Recorded ???Confirmed ???Type nitroglycerin 0.4 mg sublingual 0.4 mg sublingual Q5-15M PRN chest 06/16/20 05/12/25 Rx tablet pain #25 tabs omeprazole 40 mg capsule,delayed 40 mg PO DAILY 09/14/20 05/12/25 H istory release allopurinol 100 mg tablet 100 mg PO DAILY 03/07/21 05/12/25 History ipratropium bromide 42 mcg (0.06 2 spray intranasal PRN PRN Runny 1 09/12/20 05/12/25 History %) nasal spray Nose Lactobacillus acidophilus 10 10,000 mmu cells PO DAILY 01/26/22 05/12/25 History billion cell capsule (Probiotic) ascorbic acid (vitamin C) 500 mg 500 mg PO DAILY 01/26/22 05/12/25 History tablet (Vitamin C) fiber 2 tab PO DAILY 10/31/22 05/12/25 H istory liothyronine 5 mcg tablet 5 mcg PO DAILY 10/31/22 05/12/25 H istory triamcinolone acetonide 0.1 % 1 applic topical BID PRN pain 12/2905/12/25 History topical cream acetaminophen 650 mg 1,300 mg PO Q12H 10/02/23 05/12/25 History tablet,extended release d-mannose 500 mg capsule (AZO 500 mg PO DAILY 10/02/23 05/12/25 History D-Mannose) vitamin E (dl, acetate) 180 mg 180 mg PO DAILY 10/02/23 05/12/25 History (400 unit) capsule estradiol 0.01% (0.1 mg/gram) 1 g vaginal 3XW 01/04/24 05/12/25 History vaginal cream (Estrace) metformin 500 mg tablet,extended 500 mg PO BID 01/04/24 05/12/25 Hi story release 24 hr levothyroxine 125 mcg capsule 125 mcg PO QDAY 05/15/24 05/12/25 History ursodiol 250 mg tablet 250 mg PO BID 90 days #180 TABLETS 05/15/24 05/12/25 Rx colestipol 1 gram tablet 1 g PO TID #180 tabs 11/06/2404/29 Rx gabapentin 300 mg capsule 300 mg PO BID 11/06/24 05/12/25 Hi story glipizide 10 mg tablet, extended 10 mg PO BID 11/13/24 05/12/25 His tory release 24 hr pioglitazone 15 mg tablet 15 mg PO QDAY 11/13/24 05/12/25 Hi story hydrochlorothiazide 25 mg tablet 25 mg PO DAILY #90 tabs 02/06/25 1 Rx metoprolol tartrate 100 mg tablet 100 mg PO BID #180 tabs 02/06/25 05/12/25 Rx rosuvastatin 20 mg tablet 20 mg PO QHS #90 tabs 02/06/25 Rx amlodipine 5 mg tablet 5 mg PO DAILY #90 tabs 03/04/25 Rx losartan 50 mg tablet 50 mg PO DAILY #90 tabs 03/04/25 1 Rx fenofibrate micronized 200 mg 200 mg PO QPM #90 caps 03/31/25 Rx capsule furosemide 40 mg tablet (Lasix) 40 mg PO QDAY 05/06/25 05/12/25 Hi story potassium chloride 20 mEq 20 me (more content not included)... Normal [facility] Chloride assayOrdered By: Franci Mendez on 05-12-2025 Chloride [Moles/Vol] 100 mmol/L 98-108 [facility] Glomerular filtration rate ( GFR) estimation/1.73 sq m using serum, plasma, or whole bOrdered By: Guerita Mendez on 05-12-2025 GFR/1.73 sq M.predicted among non-blacks MDRD (S/P/Bld) [Vol rate/Area] 61 mL/min/{1.73_m2} >60 [facility] Comment on above: mL/min/1.73m2 CKD-EP I Creatinine Equation (2020) Natriuretic peptide.B prohor juany N-Terminal [Mass/volume] in Serum or PlasmaOrdered By: Guerita Mendez on 05-12-2025 Natriuretic peptide.B prohormone N-Terminal [Mass/Vol] 74 pg/mL <900 [facility] Comment on above: Heart Failure Unlike ly: < 300 pg/mLHeart Failure Likely< 50 Years: > 450 pg/mL50-75 Years: > 900 pg/mL>75 Years: > 1800 pg/mL Potassium measurement (mass/ volume)Ordered By: Guerita Mendez on 05-12-2025 Potassium (Unsp spec) [Mass/Vol] 4.5 mmol/L 3.3-5.1 [facility] Comment on above: Hemolysis present, R esults could be affected. Pro- Brain NATRIURETIC PEPTI Hugh 05-12-2025 Natriuretic peptide B (Bld) [Mass/Vol] 74 pg/mL Normal <=900 [facility] Comment on above: Result Comment: Hear t Failure Unlikely: < 300 pg/mL Heart Failure Likely < 50 Years: > 450 pg/mL 50-75 Years: > 900 pg/mL >75 Years: > 1800 pg/mL Performed By: #### L 501.1105, L500.3400, L100.0100, L101.9900, L501.6710, L800.1280, L803.2200 #### [facility] [address] [place], [address] Serum creatinine measurement (mass/volume)Ordered By: Guerita Vanessa on 05-12-2025 Creatinine [Mass/Vol] 0.97 mg/dL 0.70-1.20 [facility] Serum glucose measurement (m ass/volume)Ordered By: Guerita Mendez on 05-12-2025 Glucose [Mass/Vol] 288 mg/dL High 70-99 [facility] Serum or plasma calcium missy urement (mass/volume)Ordered By: Guerita Mendez on 05-12-2025 Calcium [Mass/Vol] 9.6 mg/dL 7.6-11.0 [facility] Serum or plasma urea nitroge n measurement (mass/volume)Ordered By: Guerita Mendez on 05-12-2025 Urea nitrogen [Mass/Vol] 22 mg/dL High 4-19 [facility] Sodium levelOrdered By: Guerita Mendez on 05-12-2025 Sodium [Moles/Vol] 137 mmol/L 133-145 [facility] MR/BMS.BVSon 05-06-2025 MR/BMS.BVS [facility] Vascular Surgery [address] [place] [address] OFFICE VISIT Date of Service: 05/06/25 MR#: [id number] Acct: [id number] Name: KORIN HARPER Rep #: [id number] : 1950 Provider: JOAQUIN Gonzáles Age/Sex: 74/F Location: [facility] Status: Signed Intake Vital Signs 11/13/24 10:12 05/06/25 10:14 Height 5 ft 1 in BP 138/72 H Blood Pressure Location Lt brachial Position Sitting Respiration 14 Pulse 76 Pulse Source Monitor Temp 97.7 F L Temp Source Temporal Pulse Oximetry (%) 98 Oxygen Delivery Method room air Intake Visit Reasons: Bilateral Lower Extremity Edema Is patient in pain?: No Allergies hydrocodone bitartrate (From Vicodin) Allergy (Verified 05/06/25 10:17) Itching Iodinated Contrast Media Allergy (Verified 05/06/25 10:17) Anaphylaxis codeine Adverse Reaction (Severe, Verified 05/06/25 10:17) Unknown esomeprazole (From Nexium) Adverse Reaction (Severe, Verified 05/06/25 10:17) Causes elevated LFTs Sulfa (Sulfonamide Antibiotics) Adverse Reaction (Severe, Verified 05/06/25 10:17) Causes elevated LFTs levofloxacin (From Levaquin) Adverse Reaction (Verified 05/06/25 10:17) Nausea/Vom/Diarrhea Niacin Preparations Adverse Reaction (Verified 05/06/25 10:17) Other Medications ???Medication ???Instructions ???Recorded ???Confirmed ???Type nitroglycerin 0.4 mg sublingual 0.4 mg sublingual Q5-15M PRN chest 06/16/20 05/06/25 Rx tablet pain #25 tabs omeprazole 40 mg capsule,delayed 40 mg PO DAILY 09/14/20 05/06/25 H istory release allopurinol 100 mg tablet 100 mg PO DAILY 03/07/21 05/06/25 History ipratropium bromide 42 mcg (0.06 2 spray intranasal PRN PRN Runny 1 09/12/20 05/06/25 History %) nasal spray Nose Lactobacillus acidophilus 10 10,000 mmu cells PO DAILY 01/26/22 05/06/25 History billion cell capsule (Probiotic) ascorbic acid (vitamin C) 500 mg 500 mg PO DAILY 01/26/22 05/06/25 History tablet (Vitamin C) fiber 2 tab PO DAILY 10/31/22 05/06/25 H istory liothyronine 5 mcg tablet 5 mcg PO DAILY 10/31/22 05/06/25 H istory triamcinolone acetonide 0.1 % 1 applic topical BID PRN pain 12/2905/06/25 History topical cream acetaminophen 650 mg 1,300 mg PO Q12H 10/02/23 05/06/25 History tablet,extended release d-mannose 500 mg capsule (AZO 500 mg PO DAILY 10/02/23 05/06/25 History D-Mannose) vitamin E (dl, acetate) 180 mg 180 mg PO DAILY 10/02/23 05/06/25 History (400 unit) capsule estradiol 0.01% (0.1 mg/gram) 1 g vaginal 3XW 01/04/24 05/06/25 History vaginal cream (Estrace) metformin 500 mg tablet,extended 500 mg PO BID 01/04/24 05/06/25 Hi story release 24 hr levothyroxine 125 mcg capsule 125 mcg PO QDAY 05/15/24 05/06/25 History ursodiol 250 mg tablet 250 mg PO BID 90 days #180 TABLETS 05/15/24 05/06/25 Rx colestipol 1 gram tablet 1 g PO TID #180 tabs 11/06/2403/23 Rx gabapentin 300 mg capsule 300 mg PO BID 11/06/24 05/06/25 Hi story glipizide 10 mg tablet, extended 10 mg PO BID 11/13/24 05/06/25 His tory release 24 hr pioglitazone 15 mg tablet 15 mg PO QDAY 11/13/24 05/06/25 Hi story hydrochlorothiazide 25 mg tablet 25 mg PO DAILY #90 tabs 02/06/25 1 Rx metoprolol tartrate 100 mg tablet 100 mg PO BID #180 tabs 02/06/25 05/06/25 Rx rosuvastatin 20 mg tablet 20 mg PO QHS #90 tabs 02/06/2503/23 Rx amlodipine 5 mg tablet 5 mg PO DAILY #90 tabs 03/04/25 Rx losartan 50 mg tablet 50 mg PO DAILY #90 tabs 03/04/25 1 Rx fenofibrate micronized 200 mg 200 mg PO QPM #90 caps 03/31/25 Rx capsule furosemide 40 mg tablet (Lasix) 40 mg PO QAM 05/06/25 05/06/25 His tory potassium chloride 20 mEq 20 meq PO QDAY 05/06/25 05/06/25 H istory tablet,extended release Is last menstrual period known: No Post menopausal: Yes Patient : No Have you fallen in the past year?: No PFSH Medical History History of echocardiogram Ambulates with cane Wears glasses Post-menopausal Thyroid disease High cholesterol Excessive bleeding Easy bruising Dietary restriction Gastric reflux Non-smoker CPAP (continuous positive airway pressure) dependence Sleep apnea Leg cramps History of edema History of stress test Hypertension Cardiology follow-up encounter Obesity P-ANCA titer positive Nausea Atrophic vaginitis History of Velazquez's esophagus Essential (primary) hypertension Lumbar disc disease Hyperlipidemia History of OR (myocardial infarction) Leg pain Leg edema Abnormal biliary HIDA scan Abdominal pain Diarrhea Back pain Dermatitis due to sun Arthritis Hypothyroidism Syncope and collapse Premature ventricular (more content not included)... Normal [facility] Venous duplex ultrasound rep ortOrdered By: Ernie Parker on 03-31-2025 US Vein [facility] [address] [place] [address] Venous Duplex US - Rod Extrem 03/27/25912 MR#: [id number] Acct: [id number] Name: KORIN HARPER Rep #:[id number] : 1950 74 From: Ernie Lynne Attending Dr: Dr. Galina Tavarez DO atus: REG CLI Ordering Dr: Galina Tavarez DO Date: 02/28 04/23 Location: [facility] Sex: F C Admitted: Reason For Study Reason For Study: Pain RIGHT LEFT CFV is compressible, spontaneous, phasic, competent CFV is compressible, spontaneous, phasic, competent, and demonstrates normal augmentation. and demonstrates normal augmentation. FV is compressible, spontaneous, phasic, competent FV is compressible, spontaneous, phasic, competent and demonstrates normal augmentation. and demonstrates normal augmentation. POP V is compressible, spontaneous, phasic, competent POP V is compressible, spontaneous, phasic, competent and demonstrates normal augmentation. and demonstrates normal augmentation. T/P Trunk is compressible. T/P Trunk is compressible. PTV is compressible. PTV is compressible. RT PerV is compressible. LT PerV is compressible. SFJ is competent and measures 0.97 cm. SFJ is competent and measures 0.67 cm. GSV proximal thigh measures 0.61x0.61 cm. HX of GSV EVLA. GSV at knee measures 0.48x0.48 cm. SSV mid calf is competent and measures 0.35x0.36 cm. GSV INCOMPETENT throughout for greater than 0.5 seconds. ASV anterior proximal thigh is INCOMPETENT for greater than 0.5 seconds and measures 0.41x0.42 cm. ASV posterior proximal thigh is INCOMPETENT for greater than 0.5 seconds and measures 0.25x0.29 cm. SSV mid calf is competent and measures 0.25x0.23 cm. Procedure Exam performed in department. This is a venous duplex using B-mode, color flow and spectral Doppler. The exam was diagnostic. Patient was scanned in reverse Trendelenburg position during reflux assessment. VL/Venous Duplex US - Rod Extrem Interpretation Summary Deep veins of the bilateral lower extremities are patent and compressible segmentally. There is no evidence of bilateral lower extremity deep vein thrombosis. The right great saphenous vein appears patent and compressible segmentally. Positive for reflux in the right great saphenous vein throughout, accessory saphenous veins in thigh. Ordering Physician: Galina Tavarez Referring Physician: Galina Tavarez Performed By: Gabriella Hampton RVT 03/31/25 0756 Date _ Ernie Parker MD CC: Dr. Galina Tavarez DO ~ Date Dictated: 03/27/25912 Date Transcribed: 03/31/25755 Cable Strander: Signed [facility] Work Phone: Venous Duplex US - Rod Extre [facility] 03-27-2025 Venous Duplex US - Rod Extrem [facility] [address] [place] [address] Venous Duplex US - Rod Extrem 03/27/25912 MR#: [id number] Acct: [id number] Name: KORIN HARPER Rep #: [id number] : 1950 74 From: Ernie Parker MD Attending Dr: Dr. Galina Tavarez DO Status: REG CL I Ordering Dr: Galina Tavarez DO Date: 03/27/25 Location: [facility] Sex: F C Admitted: Reason For Study Reason For Study: Pain RIGHT LEFT CFV is compressible, spontaneous, phasic, competent CFV is compressible, spontaneous, phasic, competent, and demonstrates normal augmentation. and demonstrates normal augmentation. FV is compressible, spontaneous, phasic, competent FV is compressible, spontaneous, phasic, competent and demonstrates normal augmentation. and demonstrates normal augmentation. POP V is compressible, spontaneous, phasic, competent POP V is compressible, spontaneous, phasic, competent and demonstrates normal augmentation. and demonstrates normal augmentation. T/P Trunk is compressible. T/P Trunk is compressible. PTV is compressible. PTV is compressible. RT PerV is compressible. LT PerV is compressible. SFJ is competent and measures 0.97 cm. SFJ is competent and measures 0.67 cm. GSV proximal thigh measures 0.61x0.61 cm. HX of GSV EVLA. GSV at knee measures 0.48x0.48 cm. SSV mid calf is competent and measures 0.35x0.36 cm. GSV INCOMPETENT throughout for greater than 0.5 seconds. ASV anterior proximal thigh is INCOMPETENT for greater than 0.5 seconds and measures 0.41x0.42 cm. ASV posterior proximal thigh is INCOMPETENT for greater than 0.5 seconds and measures 0.25x0.29 cm. SSV mid calf is competent and measures 0.25x0.23 cm. Procedure Exam performed in department. This is a venous duplex using B-mode, color flow and spectral Doppler. The exam was diagnostic. Patient was scanned in reverse Trendelenburg position during reflux assessment. VL/Venous Duplex US - Rod Extrem Interpretation Summary Deep veins of the bilateral lower extremities are patent and compressible segmentally. There is no evidence of bilateral lower extremity deep vein thrombosis. The right great saphenous vein appears patent and compressible segmentally. Positive for reflux in the right great saphenous vein throughout, accessory saphenous veins in thigh. Ordering Physician: Galina Tavarez Referring Physician: Galina Tavarez Performed By: Gabriella Hampton, RVT 03/31/25755 Date Ernie Parker MD CC: Dr. Galina Tavarez, Date Dictated: 03/27/25912 Date Transcribed: 03/31/25755 Cable Strander: Signed Normal [facility] [id number] 03-17-2025 [facility]. COMMENT Normal . [facility] Comment on above: Order Comment: [id number] 9ANTIMYELOPEROXIDASE Result Comment: Test Ordered: [id number] Anti-MPO Antibodies Anti-MPO Antibodies <0.2 units BN Reference Range: 0.0-0.9 Performed at: [address] [id number] Custom Protection Officer: John Morel MD, Phone: [phone] Performed at: [address] [id number] Custom Protection Officer: Scott Atkins PhD, Phone: [phone] Performed By: #### L 501.1105, L500.3400, L100.0100, L101.9900, L501.6710, L800.1280, L803.2200 #### [facility] [address] [place], [place], [address] [id number] 03-17-2025 [facility]. 2 COMMENT Normal . [facility] Comment on above: Order Comment: [id number] 7ANTIPROTEINASE Result Comment: Test Ordered: [id number] Anti-PR3 Antibodies Anti-PR3 Antibodies <0.2 units BN Reference Range: 0.0-0.9 Performed at: [address] [id number] Custom Protection Officer: John Morel MD, Phone: [phone] Performed at: CB [address] [id number] Custom Protection Officer: Scott Atkins PhD, Phone: [phone] Performed By: #### L 501.1105, L500.3400, L100.0100, L101.9900, L501.6710, L800.1280, L803.2200 #### [facility] [address] [place], [place], [id number] ANCAon 03-13-2025 Atypical pANCA 1:20 Abnormal Neg:<1:20 [facility] Comment on above: Result Comment: The atypical pANCA pattern has been observed in a significant percentage of patients with ulcerative colitis, primary sclerosing cholangitis and autoimmune hepatitis. Performed at: [address] [id number] Custom Protection Officer: Scott Atkins PhD, Phone: [phone] Performed By: #### L 501.1105, L500.3400, L100.0100, L101.9900, L501.6710, L800.1280, L803.2200 #### [facility] [address] [place], [address] Cytoplasmic Ab <1:20 Normal Neg:<1:20 [facility] Comment on above: Performed By: #### L 501.1105, L500.3400, L100.0100, L101.9900, L501.6710, L800.1280, L803.2200 #### [facility] [address] [place], [place], [id number] [phone] Perinuclear Ab. <1:20 Normal Neg:<1:20 [facility] Comment on above: Result Comment: The presence of positive fluorescence exhibiting P-ANCA or C-ANCA patterns alone is not specific for the diagnosis of Elisabeth's Granulomatosis (WG) or microscopic polyangiitis. Decisions about treatment should not be based solely on ANCA IFA results. The [employer] ANCA [employer] Consensus recommends follow up testing of positive sera with both ME- 3 and MPO-ANCA enzyme immunoassays. As many as 5% serum samples are positive only by EIA. Ref. AM J Clin Pathol 1999;111:507-513. Performed By: #### L 501.1105, L500.3400, L100.0100, L101.9900, L501.6710, L800.1280, L803.2200 #### [facility] [address] [place], [place], [id number] Absolute lymphocyte countOrd ered By: Surjit Good on 03-12-2025 Lymphocytes Auto (Unsp spec) [#/Vol] 1.00 10*3/uL 0.83-4.51 [facility] Absolute neutrophil countOrd ered By: Surjit Good on 03-12-2025 Neutrophils (Bld) [#/Vol] 3.4 10*3/uL 2.0-7.7 [facility] Automated lymphocyte count a s percentage of total leukocytesOrdered By: Surjit Good on 03-12-2025 Lymphocytes/100 WBC Auto (Unsp spec) 19.1 % 19-41 [facility] Basophil percentageOrdered B y: Surjit Good on 03-12-2025 Basophils/100 WBC (Bld) 0.6 % 0-1 [facility] Bilirubin directOrdered By: Surjit Good on 03-12-2025 Bilirubin.direct [Mass/Vol] 0.13 mg/dL 0.00-0.30 [facility] Bilirubin, totalOrdered By: Surjit Good on 03-12-2025 Bilirubin [Mass/Vol] 0.27 mg/dL 0.00-1.30 [facility] CBC W/Diff, Automatedon 02-27 Absolute Lymph 1.00 X10 3/uL Normal 0.83-4.51 [facility] Comment on above: Performed By: #### L 501.1105, L500.3400, L100.0100, L101.9900, L501.6710, L800.1280, L803.2200 #### [facility] [address] [place], [place], [id number] Absolute Neut 3.4 X10 3/uL Normal 2.0-7.7 [facility] Comment on above: Performed By: #### L 501.1105, L500.3400, L100.0100, L101.9900, L501.6710, L800.1280, L803.2200 #### [facility] [address] [place], [address] Basophils/100 WBC (Bld) 0.6 % Normal 0-1 [facility] Comment on above: Performed By: #### L 501.1105, L500.3400, L100.0100, L101.9900, L501.6710, L800.1280, L803.2200 #### [facility] [address] [place], [address] Eosinophils/100 WBC (Bld) 2.1 % Normal 0-5 [facility] Comment on above: Performed By: #### L 501.1105, L500.3400, L100.0100, L101.9900, L501.6710, L800.1280, L803.2200 #### [facility] [address] [place], [address] Erythrocyte distribution width (RBC) [Ratio] 12.7 % Normal 11.6-14.6 [facility] Comment on above: Performed By: #### L 501.1105, L500.3400, L100.0100, L101.9900, L501.6710, L800.1280, L803.2200 #### [facility] [address] [place], [address] Hematocrit (Bld) [Volume fraction] 38.7 % Normal 37-47 [facility] Comment on above: Performed By: #### L 501.1105, L500.3400, L100.0100, L101.9900, L501.6710, L800.1280, L803.2200 #### [facility] [address] [place], [address] Hemoglobin (Bld) [Mass/Vol] 12.7 g/dL Normal 12.0-15.0 [facility] Comment on above: Performed By: #### L 501.1105, L500.3400, L100.0100, L101.9900, L501.6710, L800.1280, L803.2200 #### [facility] [address] [place], [address] IG% 0.400 Normal 0.0-0.9 [facility] Comment on above: Result Comment: IG% - Immature Granulocytes (promyelocytes, myelocytes and metamyelocytes) > 1% indicates that a LEFT SHIFT is Present. Performed By: #### L 501.1105, L500.3400, L100.0100, L101.9900, L501.6710, L800.1280, L803.2200 #### [facility] [address] [place], [address] Lymphocytes/100 WBC (Bld) 19.1 % Normal 19-41 [facility] Comment on above: Performed By: #### L 501.1105, L500.3400, L100.0100, L101.9900, L501.6710, L800.1280, L803.2200 #### [facility] [address] [place], [address] MCH (RBC) [Entitic mass] 31.8 pg Normal 27.0-32.0 [facility] Comment on above: Performed By: #### L 501.1105, L500.3400, L100.0100, L101.9900, L501.6710, L800.1280, L803.2200 #### [facility] [address] [place], [address] MCHC (RBC) [Mass/Vol] 32.8 g/dL Normal 32-36 [facility] Comment on above: Performed By: #### L 501.1105, L500.3400, L100.0100, L101.9900, L501.6710, L800.1280, L803.2200 #### [facility] [address] [place], [address] MCV (RBC) [Entitic vol] 96.8 fL Normal 81-99 [facility] Comment on above: Performed By: #### L 501.1105, L500.3400, L100.0100, L101.9900, L501.6710, L800.1280, L803.2200 #### [facility] [address] [place], [address] Monocytes/100 WBC (Bld) 12.4 % High 0-10 [facility] Comment on above: Performed By: #### L 501.1105, L500.3400, L100.0100, L101.9900, L501.6710, L800.1280, L803.2200 #### [facility] [address] [place], [address] Neutrophils/100 WBC (Bld) 65.4 % Normal 47-70 [facility] Comment on above: Performed By: #### L 501.1105, L500.3400, L100.0100, L101.9900, L501.6710, L800.1280, L803.2200 #### [facility] [address] [place], [address] Nucleated RBC (Bld) [#/Vol] 0 10*3/uL Normal 0-5 [facility] Comment on above: Performed By: #### L 501.1105, L500.3400, L100.0100, L101.9900, L501.6710, L800.1280, L803.2200 #### [facility] [address] [place], [address] Platelet mean volume (Bld) [Entitic vol] 10.7 fL Normal 6.2-12.0 [facility] Comment on above: Performed By: #### L 501.1105, L500.3400, L100.0100, L101.9900, L501.6710, L800.1280, L803.2200 #### [facility] [address] [place], [address] Platelets (Bld) [#/Vol] 260 10*3/uL Normal 150-450 [facility] Comment on above: Performed By: #### L 501.1105, L500.3400, L100.0100, L101.9900, L501.6710, L800.1280, L803.2200 #### [facility] [address] [place], [address] RBC (Bld) [#/Vol] 4.00 10*6/uL Low 4.2-5.4 [facility] Comment on above: Performed By: #### L 501.1105, L500.3400, L100.0100, L101.9900, L501.6710, L800.1280, L803.2200 #### [facility] [address] [place], [address] RDW SD 45.7 fl High 35.1-43.9 [facility] Comment on above: Performed By: #### L 501.1105, L500.3400, L100.0100, L101.9900, L501.6710, L800.1280, L803.2200 #### [facility] [address] [place], [address] WBC (Bld) [#/Vol] 5.2 10*3/uL Normal 4.4-11.0 [facility] Comment on above: Performed By: #### L 501.1105, L500.3400, L100.0100, L101.9900, L501.6710, L800.1280, L803.2200 #### [facility] [address] [place], [place], [id number] CRPon 03-12-2025 C-REACTIVE PROT 3.47 mg/L High 0.0-3.0 [facility] Comment on above: Performed By: #### L 501.1105, L500.3400, L100.0100, L101.9900, L501.6710, L800.1280, L803.2200 #### [facility] [address] [place], [address] Eosinophil percentageOrdered By: Surjit Good on 03-12-2025 Eosinophils/100 WBC (Bld) 2.1 % 0-5 [facility] Erythrocyte Sed Rateon 03-12 SED RATE 12 mm/hr Normal 0-30 [facility] Comment on above: Performed By: #### L 501.1105, L500.3400, L100.0100, L101.9900, L501.6710, L800.1280, L803.2200 #### [facility] [address] [place], [place], [id number] Erythrocyte distribution wid th ratioOrdered By: Surjit Good on 03-12-2025 Erythrocyte distribution width (RBC) [Ratio] 12.7 % 11.6-14.6 [facility] Erythrocyte distribution wid th standard deviationOrdered By: Surjit Good on 03-12-2025 Erythrocyte distribution width (RBC) [Ratio] 45.7 fl High 35.1-43.9 [facility] Erythrocyte sedimentation ra teOrdered By: Surjit Good on 03-12-2025 ESR (Bld) [Velocity] 12 mm/h 0-30 [facility] Glomerular filtration rate ( GFR) estimation/1.73 sq m using serum, plasma, or whole bOrdered By: Surjit Good on 03-12-2025 GFR/1.73 sq M.predicted among non-blacks MDRD (S/P/Bld) [Vol rate/Area] 65 mL/min/{1.73_m2} >60 [facility] Comment on above: mL/min/1.73m2 CKD-EP I Creatinine Equation (2020) Hematocrit Auto (Bld) [Volum e fraction]Ordered By: Surjit Good on 03-12-2025 Hematocrit (Bld) [Volume fraction] 38.7 % 37-47 [facility] Hemoglobin measurementOrdere d By: Surjit Good on 03-12-2025 Hemoglobin (Bld) [Mass/Vol] 12.7 g/dL 12.0-15.0 [facility] Immature granulocytes/100 WB C Auto (Bld)Ordered By: Surjit Good on 03-12-2025 Immature granulocytes/100 WBC (Bld) 0.400 % 0.0-0.9 [facility] Comment on above: IG% - Immature Granu locytes (promyelocytes, myelocytes and metamyelocytes) > 1% indicates that a LEFT SHIFT is Present. Laboratory - Chemistry and C hemistry - challengeOrdered By: Surjit Good on 03-12-2025 AST [Catalytic activity/Vol] 26 U/L <32 [facility] Liver Profileon 03-12-2025 Albumin [Mass/Vol] 4.3 g/dL Normal 3.4-4.8 [facility] Comment on above: Performed By: #### L 501.1105, L500.3400, L100.0100, L101.9900, L501.6710, L800.1280, L803.2200 #### [facility] [address] [place], [address] ALK PHOS 40 U/L Normal 35-104 [facility] Comment on above: Performed By: #### L 501.1105, L500.3400, L100.0100, L101.9900, L501.6710, L800.1280, L803.2200 #### [facility] [address] [place], [address] ALT [Catalytic activity/Vol] 26 U/L Normal <=34 [facility] Comment on above: Performed By: #### L 501.1105, L500.3400, L100.0100, L101.9900, L501.6710, L800.1280, L803.2200 #### [facility] [address] [place], [address] AST [Catalytic activity/Vol] 26 U/L Normal <=31 [facility] Comment on above: Performed By: #### L 501.1105, L500.3400, L100.0100, L101.9900, L501.6710, L800.1280, L803.2200 #### [facility] [address] [place], [address] Bilirubin [Mass/Vol] 0.27 mg/dL Normal 0.00-1.30 [facility] Comment on above: Performed By: #### L 501.1105, L500.3400, L100.0100, L101.9900, L501.6710, L800.1280, L803.2200 #### [facility] [address] [place], [address] Bilirubin.direct [Mass/Vol] 0.13 mg/dL Normal 0.00-0.30 [facility] Comment on above: Performed By: #### L 501.1105, L500.3400, L100.0100, L101.9900, L501.6710, L800.1280, L803.2200 #### [facility] [address] [place], [address] Globulin (S) [Mass/Vol] 2.4 g/dL Normal 2.2-4.2 [facility] Comment on above: Performed By: #### L 501.1105, L500.3400, L100.0100, L101.9900, L501.6710, L800.1280, L803.2200 #### [facility] [address] [place], [place], [id number] T PROT 6.7 g/dL Normal 5.9-8.4 [facility] Comment on above: Performed By: #### L 501.1105, L500.3400, L100.0100, L101.9900, L501.6710, L800.1280, L803.2200 #### [facility] [address] [place], [place], [id number] MCV (mean corpuscular volume ) determinationOrdered By: Surjit Good on 03-12-2025 MCV (RBC) [Entitic vol] 96.8 fL 81-99 [facility] Mean corpuscular hemoglobin (MCH) determinationOrdered By: Surjit Good on 03-12-2025 MCH (RBC) [Entitic mass] 31.8 pg 27.0-32.0 [facility] Mean corpuscular hemoglobin concentration (MCHC) determinationOrdered By: Surjit Good on 03-12-2025 MCHC (RBC) [Mass/Vol] 32.8 g/dL 32-36 [facility] Mean platelet volume determi nationOrdered By: Surjit Good on 03-12-2025 Platelet mean volume (Bld) [Entitic vol] 10.7 fL 6.2-12.0 [facility] Monocyte percentageOrdered B y: Surjit Good on 03-12-2025 Monocytes/100 WBC (Bld) 12.4 % High 0-10 [facility] Neutrophil percentageOrdered By: Surjit Good on 03-12-2025 Neutrophils/100 WBC (Bld) 65.4 % 47-70 [facility] Nucleated red blood cell per centageOrdered By: Surjit Good on 03-12-2025 Nucleated RBC/100 WBC (Bld) [Ratio] 0 % 0-5 [facility] Platelet countOrdered By: Franci Good on 03-12-2025 Platelets (Bld) [#/Vol] 260 10*3/uL 150-450 [facility] RBC Auto (Bld) [#/Vol]Ordere d By: Surjit Good on 03-12-2025 RBC (Bld) [#/Vol] 4.00 10*6/uL Low 4.2-5.4 [facility] Serum Creatinine AND GFRon 0 03-12-2025 Creatinine [Mass/Vol] 0.93 mg/dL Normal 0.70-1.20 [facility] Comment on above: Performed By: #### L 501.1105, L500.3400, L100.0100, L101.9900, L501.6710, L800.1280, L803.2200 #### [facility] [address] [place], [place], [address] GFR/1.73 sq M.predicted among non-blacks MDRD (S/P/Bld) [Vol rate/Area] 65 mL/min/{1.73_m2} Normal >60 [facility] Comment on above: Result Comment: mL/m in/1.73m2 CKD-EPI Creatinine Equation (2020) Performed By: #### L 501.1105, L500.3400, L100.0100, L101.9900, L501.6710, L800.1280, L803.2200 #### [facility] [address] [place], [place], [id number] Serum classic neutrophil cyt oplasmic antibody assay (units/volume)Ordered By: Surjit Good on 03-12-2025 Neutrophil cytoplasmic Ab.classic Qn (S) <1:20 titer Neg:<1:20 [facility] Serum creatinine measurement (mass/volume)Ordered By: Surjit Good on 03-12-2025 Creatinine [Mass/Vol] 0.93 mg/dL 0.70-1.20 [facility] Serum globulin measurementOr dered By: Surjit Good on 03-12-2025 Globulin (S) [Mass/Vol] 2.4 g/dL 2.2-4.2 [facility] Serum or plasma C reactive p rotein measurement (mass/volume)Ordered By: Surjit Good on 03-12-2025 CRP [Mass/Vol] 3.47 mg/L High 0.0-3.0 [facility] Serum or plasma alanine grayson otransferase (ALT) measurementOrdered By: Surjit Good on 03-12-2025 ALT [Catalytic activity/Vol] 26 U/L <35 [facility] Serum or plasma albumin missy urement (mass/volume)Ordered By: Surjit Good on 03-12-2025 Albumin [Mass/Vol] 4.3 g/dL 3.4-4.8 [facility] Serum or plasma alkaline angela sphatase measurementOrdered By: Surjit Good on 03-12-2025 ALP [Catalytic activity/Vol] 40 U/L 35-104 [facility] Serum perinuclear neutrophil cytoplasmic antibody titer by immunofluorescenceOrdered By: Surjit Good on 03-12-2025 Neutrophil cytoplasmic Ab.perinuclear IF (S) [Titer] <1:20 titer Neg:<1:20 [facility] Comment on above: The presence of posi tive fluorescence exhibiting P-ANCA orC-ANCA patterns alone is not specific for the diagnosis ofWegener's Granulomatosis (WG) or microscopic polyangiitis.Decisions about treatment should not be based solely onANCA IFA results. The International ANCA Group Consensusrecommends follow up testing of positive sera with both ME-3 and MPO-ANCA enzyme immunoassays. As many as 5% serumsamples are positive only by EIA. Ref. AM J Clin Enomqr3994;111:507-513. Total proteinOrdered By: Kaiser Good on 03-12-2025 Protein [Mass/Vol] 6.7 g/dL 5.9-8.4 [facility] White blood cell (WBC) count Ordered By: Surjit Good on 03-12-2025 WBC (Bld) [#/Vol] 5.2 10*3/uL 4.4-11.0 [facility] Microalb:Creat Ratio,Random URon 01-15-2025 MALB:CREAT 16.7 mg/g CRE Normal [facility] Comment on above: Result Comment: AMENDED REPORT 01/15/25 [id number] MALB:CREAT previously reported as: 166.7 mg/g CRE Performed By: #### L 501.1105, L500.3400, L100.0100, L101.9900, L501.6710, L800.1280, L803.2200 #### [facility] [address] [place], [address] Albumin DL <= 20 mg/L (U) [M ass/Vol]Ordered By: Sekou Anup on 11-13-2024 Urine Random Microalbumin 12.8 mg/L NO RANGE EST. [facility] Anion gap in Serum or Plasma Ordered By: Sekou [facility] on 11-13-2024 Anion gap [Moles/Vol] 12 mmol/L 5-15 [facility] BUN/creatinine ratioOrdered By: [place] [facility] on 11-13-2024 Urea nitrogen/Creatinine [Mass ratio] 25.4 mg/mg High 10- [facility] Basic Metabolic Profile (BMP )on 11-13-2024 BUN/CRE 25.4 RATIO High - [facility] Comment on above: Performed By: #### L 501.1105, L500.3400, L100.0100, L101.9900, L501.6710, L800.1280, L803.2200 #### [facility] [address] [place], [address] Calcium [Mass/Vol] 9.9 mg/dL Normal 7.6-11.0 [facility] Comment on above: Performed By: #### L 501.1105, L500.3400, L100.0100, L101.9900, L501.6710, L800.1280, L803.2200 #### [facility] [address] [place], [address] Chloride [Moles/Vol] 100 mmol/L Normal 98-108 [facility] Comment on above: Performed By: #### L 501.1105, L500.3400, L100.0100, L101.9900, L501.6710, L800.1280, L803.2200 #### [facility] [address] [place], [address] CO2 [Moles/Vol] 24.4 mmol/L Normal 21.0-32.0 [facility] Comment on above: Performed By: #### L 501.1105, L500.3400, L100.0100, L101.9900, L501.6710, L800.1280, L803.2200 #### [facility] [address] [place], [address] Creatinine [Mass/Vol] 0.94 mg/dL Normal 0.70-1.20 [facility] Comment on above: Performed By: #### L 501.1105, L500.3400, L100.0100, L101.9900, L501.6710, L800.1280, L803.2200 #### [facility] [address] [place], [address] GAP 12 Normal 5-15 [facility] Comment on above: Performed By: #### L 501.1105, L500.3400, L100.0100, L101.9900, L501.6710, L800.1280, L803.2200 #### [facility] [address] [place], [address] GFR/1.73 sq M.predicted among non-blacks MDRD (S/P/Bld) [Vol rate/Area] 64 mL/min/{1.73_m2} Normal >60 [facility] Comment on above: Result Comment: mL/m in/1.73m2 CKD-EPI Creatinine Equation (2020) Performed By: #### L 501.1105, L500.3400, L100.0100, L101.9900, L501.6710, L800.1280, L803.2200 #### [facility] [address] [place], [address] Glucose [Mass/Vol] 214 mg/dL High 70-99 [facility] Comment on above: Performed By: #### L 501.1105, L500.3400, L100.0100, L101.9900, L501.6710, L800.1280, L803.2200 #### [facility] [address] [place], [address] Potassium [Moles/Vol] 4.1 mmol/L Normal 3.3-5.1 [facility] Comment on above: Performed By: #### L 501.1105, L500.3400, L100.0100, L101.9900, L501.6710, L800.1280, L803.2200 #### [facility] [address] [place], [address] Sodium [Moles/Vol] 137 mmol/L Normal 133-145 [facility] Comment on above: Performed By: #### L 501.1105, L500.3400, L100.0100, L101.9900, L501.6710, L800.1280, L803.2200 #### [facility] [address] [place], [address] Urea nitrogen [Mass/Vol] 24 mg/dL High 4-19 [facility] Comment on above: Performed By: #### L 501.1105, L500.3400, L100.0100, L101.9900, L501.6710, L800.1280, L803.2200 #### [facility] [address] [place], [address] Bilirubin directOrdered By: Sekou [facility] on 11-13-2024 Bilirubin.direct [Mass/Vol] 0.13 mg/dL 0.00-0.30 [facility] Bilirubin, totalOrdered By: Sekou [facility] on 11-13-2024 Bilirubin [Mass/Vol] 0.26 mg/dL 0.00-1.30 [facility] Calculated very low density lipoprotein (VLDL) cholesterol measurementOrdered By: Sekou [facility] on 11-13-2024 VLDL Cholesterol 41 mg/dL High 5-40 [facility] Carbon dioxide, total [Moles /volume] in Central venous bloodOrdered By: Sekou Hebert on 11-13-2024 CO2 [Moles/Vol] 24.4 mmol/L 21.0-32.0 [facility] Cardiology Visit Reporton Cardiology Visit Report [facility] [address] [place] [address] OFFICE VISIT Date of Service: 11/13/24 MR#: [id number] Acct: [id number] Name: KORIN HARPER Rep #: [id number] : 1950 Provider: Dr. Sekou Hebert MD Age/Sex: 74/F Location: [facility] Status: Signed HPI HPI History of Present Illness Details: KORIN HARPER, is a 74 F who presents to the office today for a cardiovascular outpatient follow-up. She has a history of coronary artery disease status status post drug-eluting stent to LCx and LAD in April 2007, drug-eluting stent to mid RCA on 06/18/2020, hypertension, hyperlipidemia, and TOYIN with CPAP therapy. She denies chest, arm, jaw, or neck discomfort. She denies palpitations. She denies bilateral lower extremity edema. She denies claudication. She denies shortness of breath with activity, shortness of breath at rest, orthopnea, or PND. She denies chronic cough. She denies significant, sudden weight gain. She denies lightheadedness, dizziness, near-syncope, or syncope. She denies blood in urine, blood in stool, or epistaxis. He denies fever with chills. She denies myalgia. She denies fatigue. Her exercise level has remained stable. 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 Accompanied by: Self Allergies hydrocodone bitartrate (From Vicodin) Allergy (Verified 11/13/24 10:15) Itching Iodinated Contrast Media Allergy (Verified 11/13/24 10:15) Anaphylaxis codeine Adverse Reaction (Severe, Verified 11/13/24 10:15) Unknown esomeprazole (From Nexium) Adverse Reaction (Severe, Verified 11/13/24 10:15) Causes elevated LFTs Sulfa (Sulfonamide Antibiotics) Adverse Reaction (Severe, Verified 11/13/24 10:15) Causes elevated LFTs levofloxacin (From Levaquin) Adverse Reaction (Verified 11/13/24 10:15) Nausea/Vom/Diarrhea Niacin Preparations Adverse Reaction (Verified 11/13/24 10:15) Other Medications ???Medication ???Instructions ???Recorded ???Confirmed ???Type nitroglycerin 0.4 mg sublingual 0.4 mg sublingual Q5-15M PRN chest 06/16/20 11/13/24 Rx tablet pain #25 tabs omeprazole 40 mg capsule,delayed 40 mg PO DAILY 09/14/20 11/13/24 H istory release allopurinol 100 mg tablet 100 mg PO DAILY 03/07/21 11/13/24 History ipratropium bromide 42 mcg (0.06 2 spray intranasal PRN PRN Runny 1 09/12/20 11/13/24 History %) nasal spray Nose Lactobacillus acidophilus 10 10,000 mmu cells PO DAILY 01/26/22 11/13/24 History billion cell capsule (Probiotic) ascorbic acid (vitamin C) 500 mg 500 mg PO DAILY 01/26/22 11/13/24 History tablet (Vitamin C) fiber 2 tab PO DAILY 10/31/22 11/13/24 H istory liothyronine 5 mcg tablet 5 mcg PO DAILY 10/31/22 11/13/24 H istory triamcinolone acetonide 0.1 % 1 applic topical BID PRN pain 12/2911/13/24 History topical cream acetaminophen 650 mg 1,300 mg PO Q12H 10/02/23 11/13/24 History tablet,extended release d-mannose 500 mg capsule (AZO 500 mg PO DAILY 10/02/23 11/13/24 History D-Mannose) vitamin E (dl, acetate) 180 mg 180 mg PO DAILY 10/02/23 11/13/24 History (400 unit) capsule hydrochlorothiazide 25 mg tablet 25 mg PO DAILY #90 tabs 11/27/23 0 11/13/24 Rx amlodipine 5 mg tablet 5 mg PO DAILY #90 tabs 01/04/24 Rx estradiol 0.01% (0.1 mg/gram) 1 g vaginal 3XW 01/04/24 11/13/24 History vaginal cream (Estrace) metformin 500 mg tablet,extended 500 mg PO BID 01/04/24 11/13/24 Hi story release 24 hr metoprolol tartrate 100 mg tablet 100 mg PO BID #180 tabs 01/30/24 11/13/24 Rx rosuvastatin 20 mg tablet 20 mg PO QHS #90 tabs 01/30/24 Rx losartan 50 mg tablet 50 mg PO DAILY #90 tabs 02/26/24 0 11/13/24 Rx fenofibrate micronized 200 mg 200 mg PO QPM #90 caps 04/11/24 Rx capsule levothyroxine 125 mcg capsule 125 mcg PO QDAY 05/15/24 11/13/24 History ursodiol 250 mg tablet 250 mg PO BID 90 days #180 TABLETS 05/15/24 11/13/24 Rx clopidogrel 75 mg tablet (Plavix) 75 mg PO DAILY #90 tabs 08/20/24 11/13/24 Rx colestipol 1 gram tablet 1 g PO TID #180 tabs 11/06/2410/28 Rx gabapentin 300 mg capsule 300 mg PO BID 11/06/24 11/13/24 Hi story glipizide 10 mg tablet, extended 10 mg PO BID 11/13/24 11/13/24 His tory release 24 hr pioglitazone 15 mg tablet 15 mg PO QDAY 11/13/24 11/13/24 Hi story Have you fallen in the past year?: Yes [facility] Medical History History of echocardiogram Ambulates with cane Wears glasses Post (more content not included)... Normal [facility] Chloride assayOrdered By: Raúl Hebert on 11-13-2024 Chloride [Moles/Vol] 100 mmol/L 98-108 [facility] Creatinine Unsp time (U) [Ma ss/Vol]Ordered By: Sekou Hebert on 11-13-2024 Creatinine (U) [Mass/Vol] 76.80 mg/dL 28.00-217.0 0 [facility] GFR/1.73 sq M.predicted charo g non-blacks MDRD (S/P/Bld) [Vol rate/Area]Ordered By: Sekou Hebert on 11-13-2024 Estimated GFR (MDRD) Non-Af Amer 64 >60 [facility] Comment on above: mL/min/1.73m2 CKD-EP I Creatinine Equation (2020) Hemoglobin A1con 11-13-2024 HbA1c (Bld) [Mass fraction] 8.7 % High <=5.6 [facility] Comment on above: Result Comment: Norm al < 5.7 % Prediabetic 5.7 - 6.4 % Diabetic >or= 6.5 % Please note range changes. Performed By: #### L 501.1105, L500.3400, L100.0100, L101.9900, L501.6710, L800.1280, L803.2200 #### [facility] [address] [place] [address]. [place], [address] Hemoglobin A1c percentageOrd ered By: Sekou Hebert on 11-13-2024 HbA1c (Bld) [Mass fraction] 8.7 % High <5.7 [facility] Comment on above: Normal < 5.7 % Predi abetic 5.7 - 6.4 % Diabetic >or= 6.5 % Please note range changes. LDL calc ser/plasOrdered By: Sekou Hebert on 11-13-2024 LDL Cholesterol, Calculated 39 mg/dL [facility] Comment on above: Xyosjtuisx=245-643 m g/dL & Higher Lwxa=744 mg/dL or greater Laboratory - Chemistry and C hemistry - challengeOrdered By: Sekou Hebert on 11-13-2024 AST [Catalytic activity/Vol] 28 U/L <32 [facility] Lipid Profileon 11-13-2024 CHOL:HDL 3.00 Normal [facility] Comment on above: Performed By: #### L 501.1105, L500.3400, L100.0100, L101.9900, L501.6710, L800.1280, L803.2200 #### [facility] [address] [place], [address] Cholesterol [Mass/Vol] 120 mg/dL Normal <=200 [facility] Comment on above: Result Comment: Chol esterol level, Desirable <200 mg/dL Borderline high cholesterol 200-239 mg/dL High cholesterol >=240 mg/dL Recommendations of the NCEP Adult Treatment Panel for the following risk-cutoff thresholds for the [place] population. Performed By: #### L 501.1105, L500.3400, L100.0100, L101.9900, L501.6710, L800.1280, L803.2200 #### [facility] [address] [place], [address] Cholesterol in HDL [Mass/Vol] 40 mg/dL Normal [facility] Comment on above: Result Comment: Riana onal Cholesterol Education Program (NCEP) guidelines: <40 mg/dL: Low HDL-cholesterol (major risk factor for CHD) >= 60 mg/dL: High HDL-cholesterol (negative risk factor for CHD) HDL-cholesterol is affected by a number of factors, e.g. smoking, exercise, hormones, sex and age. Performed By: #### L 501.1105, L500.3400, L100.0100, L101.9900, L501.6710, L800.1280, L803.2200 #### [facility] [address] [place], [address] Cholesterol in LDL [Mass/Vol] 39 mg/dL Normal [facility] Comment on above: Result Comment: Bord loqdtp=010-756 mg/dL Higher Bgfr=198 mg/dL or greater Performed By: #### L 501.1105, L500.3400, L100.0100, L101.9900, L501.6710, L800.1280, L803.2200 #### [facility] [address] [place], [address] Cholesterol in VLDL [Mass/Vol] 41 mg/dL High 5-40 [facility] Comment on above: Performed By: #### L 501.1105, L500.3400, L100.0100, L101.9900, L501.6710, L800.1280, L803.2200 #### [facility] [address] [place], [address] Triglyceride [Mass/Vol] 205 mg/dL High [facility] Comment on above: Result Comment: The drugs N-Acetylcysteine and Metamizole may falsely depress this assay. Normal range: <150 mg/dL Borderline High: 150-199 mg/dL High: 200-499 mg/dL Very High: >500 mg/dL Performed By: #### L 501.1105, L500.3400, L100.0100, L101.9900, L501.6710, L800.1280, L803.2200 #### [facility] [address] [place], [address] Liver Profileon 11-13-2024 Albumin [Mass/Vol] 4.5 g/dL Normal 3.4-4.8 [facility] Comment on above: Performed By: #### L 501.1105, L500.3400, L100.0100, L101.9900, L501.6710, L800.1280, L803.2200 #### [facility] [address] [place], [address] ALK PHOS 37 U/L Normal 35-104 [facility] Comment on above: Performed By: #### L 501.1105, L500.3400, L100.0100, L101.9900, L501.6710, L800.1280, L803.2200 #### [facility] [address] [place], [address] ALT [Catalytic activity/Vol] 24 U/L Normal <=34 [facility] Comment on above: Performed By: #### L 501.1105, L500.3400, L100.0100, L101.9900, L501.6710, L800.1280, L803.2200 #### [facility] [address] [place], [address] AST [Catalytic activity/Vol] 28 U/L Normal <=31 [facility] Comment on above: Performed By: #### L 501.1105, L500.3400, L100.0100, L101.9900, L501.6710, L800.1280, L803.2200 #### [facility] [address] [place], [address] Bilirubin [Mass/Vol] 0.26 mg/dL Normal 0.00-1.30 [facility] Comment on above: Performed By: #### L 501.1105, L500.3400, L100.0100, L101.9900, L501.6710, L800.1280, L803.2200 #### [facility] [address] [place], [address] Bilirubin.direct [Mass/Vol] 0.13 mg/dL Normal 0.00-0.30 [facility] Comment on above: Performed By: #### L 501.1105, L500.3400, L100.0100, L101.9900, L501.6710, L800.1280, L803.2200 #### [facility] [address] [place], [address] Globulin (S) [Mass/Vol] 2.6 g/dL Normal 2.2-4.2 [facility] Comment on above: Performed By: #### L 501.1105, L500.3400, L100.0100, L101.9900, L501.6710, L800.1280, L803.2200 #### [facility] [address] [place], [place], [id number] T PROT 7.0 g/dL Normal 5.9-8.4 [facility] Comment on above: Performed By: #### L 501.1105, L500.3400, L100.0100, L101.9900, L501.6710, L800.1280, L803.2200 #### [facility] [address] [place], [place], [id number] Microalbumin/creat ratio urO rdered By: Sekou Hebert on 11-13-2024 Urine Microalbumin/Creatinine Ratio 166.7 mg/g CRE [facility] Potassium (Unsp spec) [Mass/ Vol]Ordered By: Sekou Hebert on 11-13-2024 Potassium [Moles/Vol] 4.1 mmol/L 3.3-5.1 [facility] Screening total cholesterol/ high density lipoprotein (HDL) cholesterol ratioOrdered By: Sekou Hebert on 11-13-2024 Cholesterol.total/Shiela sterol in HDL [Mass ratio] 3.00 {ratio} [facility] Serum creatinine measurement (mass/volume)Ordered By: Sekou Hebert on 11-13-2024 Creatinine [Mass/Vol] 0.94 mg/dL 0.70-1.20 [facility] Serum globulin measurementOr dered By: Sekou Hebert on 11-13-2024 Globulin (S) [Mass/Vol] 2.6 g/dL 2.2-4.2 [facility] Serum glucose measurement (m ass/volume)Ordered By: Sekou Hebert on 11-13-2024 Glucose [Mass/Vol] 214 mg/dL High 70-99 [facility] Serum or plasma alanine grayson otransferase (ALT) measurementOrdered By: [place] Anup on 11-13-2024 ALT [Catalytic activity/Vol] 24 U/L <35 [facility] Serum or plasma albumin missy urement (mass/volume)Ordered By: [place] Anup on 11-13-2024 Albumin [Mass/Vol] 4.5 g/dL 3.4-4.8 [facility] Serum or plasma alkaline angela sphatase measurementOrdered By: Sekou Hebert on 11-13-2024 ALP [Catalytic activity/Vol] 37 U/L 35-104 [facility] Serum or plasma calcium missy urement (mass/volume)Ordered By: Sekou Anup on 11-13-2024 Calcium [Mass/Vol] 9.9 mg/dL 7.6-11.0 [facility] Serum or plasma cholesterol in HDL measurement (mass/volume)Ordered By: Sekou Hebert on 11-13-2024 Cholesterol in HDL [Mass/Vol] 40 mg/dL >40 [facility] Comment on above: National Cholesterol Education Program (NCEP) guidelines:<40 mg/dL: Low HDL-cholesterol (major risk factor for CHD)>= 60 mg/dL: High HDL-cholesterol (negative risk factor for CHD)HDL-cholesterol is affected by a number of factors, e.g. smoking, exercise, hormones, sex and age. Serum or plasma cholesterol measurement (mass/volume)Ordered By: Sekou Hebert on 11-13-2024 Cholesterol [Mass/Vol] 120 mg/dL <201 [facility] Comment on above: Cholesterol level, D esirable <200 mg/dLBorderline high cholesterol 200-239 mg/dLHigh cholesterol >=240 mg/dLRecommendations of the NCEP Adult Treatment Panel for the following risk-cutoff thresholds for the [place] population. Serum or plasma urea nitroge n measurement (mass/volume)Ordered By: Sekou Hebert on 11-13-2024 Urea nitrogen [Mass/Vol] 24 mg/dL High 4-19 [facility] Sodium levelOrdered By: Hieu Hebert on 11-13-2024 Sodium [Moles/Vol] 137 mmol/L 133-145 [facility] Total proteinOrdered By: Coleen joshi Anup on 11-13-2024 Protein [Mass/Vol] 7.0 g/dL 5.9-8.4 [facility] Triglycerides measurementOrd ered By: Sekou Hebert on 11-13-2024 Triglyceride [Mass/Vol] 205 mg/dL High <199 [facility] Comment on above: The drugs N-Acetylcy steine and Metamizole may falsely depress this assay. Normal range: <150 mg/dLBorderline High: 150-199 mg/dLHigh: 200-499 mg/dLVery High: >500 mg/dL Absolute neutrophil countOrd ered By: Surjit Good on 11-06-2024 Neutrophils (Bld) [#/Vol] 3.6 10*3/uL 2.0-7.7 [facility] Basophil percentageOrdered B y: Surjit Good on 11-06-2024 Basophils/100 WBC (Bld) 0.7 % 0-1 [facility] Bilirubin directOrdered By: Surjit Good on 11-06-2024 Bilirubin.direct [Mass/Vol] 0.15 mg/dL 0.00-0.30 [facility] Bilirubin, totalOrdered By: Surjit Good on 11-06-2024 Bilirubin [Mass/Vol] 0.31 mg/dL 0.00-1.30 [facility] CBC W/Diff, Automatedon 10-28 Absolute Lymph 1.16 X10 3/uL Normal 0.83-4.51 [facility] Comment on above: Performed By: #### L 500.4100, L500.3400 #### [facility] [address] [place], [address] Absolute Neut 3.6 X10 3/uL Normal 2.0-7.7 [facility] Comment on above: Performed By: #### L 500.4100, L500.3400 #### [facility] [address] [place], [address] Basophils/100 WBC (Bld) 0.7 % Normal 0-1 [facility] Comment on above: Performed By: #### L 500.4100, L500.3400 #### [facility] [address] [place], [address] Eosinophils/100 WBC (Bld) 3.1 % Normal 0-5 [facility] Comment on above: Performed By: #### L 500.4100, L500.3400 #### [facility] [address] [place], [address] Erythrocyte distribution width (RBC) [Ratio] 13.0 % Normal 11.6-14.6 [facility] Comment on above: Performed By: #### L 500.4100, L500.3400 #### [facility] [address] [place], [address] Hematocrit (Bld) [Volume fraction] 40.6 % Normal 37-47 [facility] Comment on above: Performed By: #### L 500.4100, L500.3400 #### [facility] [address] [place], [address] Hemoglobin (Bld) [Mass/Vol] 13.0 g/dL Normal 12.0-15.0 [facility] Comment on above: Performed By: #### L 500.4100, L500.3400 #### [facility] [address] [place], [address] IG% 0.500 Normal 0.0-0.9 [facility] Comment on above: Result Comment: IG% - Immature Granulocytes (promyelocytes, myelocytes and metamyelocytes) > 1% indicates that a LEFT SHIFT is Present. Performed By: #### L 500.4100, L500.3400 #### [facility] [address] [place], [address] Lymphocytes/100 WBC (Bld) 21.0 % Normal 19-41 [facility] Comment on above: Performed By: #### L 500.4100, L500.3400 #### [facility] [address] [place], [address] MCH (RBC) [Entitic mass] 30.5 pg Normal 27.0-32.0 [facility] Comment on above: Performed By: #### L 500.4100, L500.3400 #### [facility] [address] [place], [address] MCHC (RBC) [Mass/Vol] 32.0 g/dL Normal 32-36 [facility] Comment on above: Performed By: #### L 500.4100, L500.3400 #### [facility] [address] [place], [address] MCV (RBC) [Entitic vol] 95.3 fL Normal 81-99 [facility] Comment on above: Performed By: #### L 500.4100, L500.3400 #### [facility] [address] [place], [address] Monocytes/100 WBC (Bld) 10.3 % High 0-10 [facility] Comment on above: Performed By: #### L 500.4100, L500.3400 #### [facility] [address] [place], [address] Neutrophils/100 WBC (Bld) 64.4 % Normal 47-70 [facility] Comment on above: Performed By: #### L 500.4100, L500.3400 #### [facility] [address] [place], [address] Nucleated RBC (Bld) [#/Vol] 0 10*3/uL Normal 0-5 [facility] Comment on above: Performed By: #### L 500.4100, L500.3400 #### [facility] [address] [place], [address] Platelet mean volume (Bld) [Entitic vol] 10.1 fL Normal 6.2-12.0 [facility] Comment on above: Performed By: #### L 500.4100, L500.3400 #### [facility] [address] [place], [address] Platelets (Bld) [#/Vol] 230 10*3/uL Normal 150-450 [facility] Comment on above: Performed By: #### L 500.4100, L500.3400 #### [facility] [address] [place], [address] RBC (Bld) [#/Vol] 4.26 10*6/uL Normal 4.2-5.4 [facility] Comment on above: Performed By: #### L 500.4100, L500.3400 #### [facility] [address] [place], [address] RDW SD 45.8 fl High 35.1-43.9 [facility] Comment on above: Performed By: #### L 500.4100, L500.3400 #### [facility] [address] [place], [address] WBC (Bld) [#/Vol] 5.5 10*3/uL Normal 4.4-11.0 [facility] Comment on above: Performed By: #### L 500.4100, L500.3400 #### [facility] [address] [place], [address] CRPon 11-06-2024 C-REACTIVE PROT < 3.00 Normal 0.0-3.0 [facility] Comment on above: Performed By: #### L 501.1105, L500.3400, L100.0100, L101.9900, L501.6710, L800.1280, L803.2200 #### [facility] [address] [place], [address] CRP [Mass/Vol]Ordered By: Franci Good on 11-06-2024 C-Reactive Protein Extended Range < 3.00 mg/L 0.0-3.0 [facility] Eosinophil percentageOrdered By: Surjit Good on 11-06-2024 Eosinophils/100 WBC (Bld) 3.1 % 0-5 [facility] Erythrocyte Sed Rateon 11-06 SED RATE 5 mm/hr Normal 0-30 [facility] Comment on above: Performed By: #### L 500.4100, L500.3400 #### [facility] [address] [place], [address] Erythrocyte distribution wid th (RBC) [Ratio]Ordered By: Surjit Good on 11-06-2024 Erythrocyte distribution width (RBC) [Entitic vol] 45.8 fL High 35.1-43.9 [facility] Erythrocyte distribution wid th ratioOrdered By: Surjit Good on 11-06-2024 Erythrocyte distribution width (RBC) [Ratio] 13.0 % 11.6-14.6 [facility] Erythrocyte sedimentation ra teOrdered By: Surjit Good on 11-06-2024 ESR (Bld) [Velocity] 5 mm/h 0-30 [facility] GFR/1.73 sq M.predicted charo g non-blacks MDRD (S/P/Bld) [Vol rate/Area]Ordered By: Surjit Good on 11-06-2024 Estimated GFR (MDRD) Non-Af Amer 61 >60 [facility] Comment on above: mL/min/1.73m2 CKD-EP I Creatinine Equation (2020) Gastroenterology Visit Repor ton 11-06-2024 Gastroenterology Visit Report [facility] [address] [place] [address] OFFICE VISIT Date of Service: 11/06/24 MR#: [id number] Acct: [id number] Name: KORIN HARPER Rep #: [id number] : 1950 Provider: Bakari Matthews DO Age/Sex: 74/F Location: [facility] Status: Signed Intake Vital Signs 03/14/24 10:00 06/25/24 09:26 Height 5 ft 1 in 5 ft 1 in Intake Visit Reasons: 6 M FU Chief Complaint: Annual Allergies hydrocodone bitartrate (From Vicodin) Allergy (Verified 06/25/24 09:29) Itching Iodinated Contrast Media Allergy (Verified 06/25/24 09:29) Anaphylaxis codeine Adverse Reaction (Severe, Verified 06/25/24 09:29) Unknown esomeprazole (From Nexium) Adverse Reaction (Severe, Verified 06/25/24 09:29) Causes elevated LFTs Sulfa (Sulfonamide Antibiotics) Adverse Reaction (Severe, Verified 06/25/24 09:29) Causes elevated LFTs levofloxacin (From Levaquin) Adverse Reaction (Verified 06/25/24 09:29) Nausea/Vom/Diarrhea Niacin Preparations Adverse Reaction (Verified 06/25/24 09:29) Other Medications ???Medication ???Instructions ???Recorded ???Confirmed ???Type nitroglycerin 0.4 mg sublingual 0.4 mg sublingual Q5-15M PRN chest 06/16/20 11/06/24 Rx tablet pain #25 tabs omeprazole 40 mg capsule,delayed 40 mg PO DAILY 09/14/20 11/06/24 H istory release allopurinol 100 mg tablet 100 mg PO DAILY 03/07/21 11/06/24 History ipratropium bromide 42 mcg (0.06 2 spray intranasal PRN PRN Runny 1 09/12/20 11/06/24 History %) nasal spray Nose Lactobacillus acidophilus 10 10,000 mmu cells PO DAILY 01/26/22 11/06/24 History billion cell capsule (Probiotic) ascorbic acid (vitamin C) 500 mg 500 mg PO DAILY 01/26/22 11/06/24 History tablet (Vitamin C) fiber 2 tab PO DAILY 10/31/22 11/06/24 H istory liothyronine 5 mcg tablet 5 mcg PO DAILY 10/31/22 11/06/24 H istory glipizide 10 mg tablet, extended 10 mg PO DAILY 01/23/23 11/06/24 H istory release 24 hr triamcinolone acetonide 0.1 % 1 applic topical BID PRN pain 12/2911/06/24 History topical cream acetaminophen 650 mg 1,300 mg PO Q12H 10/02/23 11/06/24 History tablet,extended release d-mannose 500 mg capsule (AZO 500 mg PO DAILY 10/02/23 11/06/24 History D-Mannose) vitamin E (dl, acetate) 180 mg 180 mg PO DAILY 10/02/23 11/06/24 History (400 unit) capsule hydrochlorothiazide 25 mg tablet 25 mg PO DAILY #90 tabs 11/27/23 0 11/06/24 Rx amlodipine 5 mg tablet 5 mg PO DAILY #90 tabs 01/04/24 Rx estradiol 0.01% (0.1 mg/gram) 1 g vaginal 3XW 01/04/24 11/06/24 History vaginal cream (Estrace) metformin 500 mg tablet,extended 500 mg PO BID 01/04/24 11/06/24 Hi story release 24 hr metoprolol tartrate 100 mg tablet 100 mg PO BID #180 tabs 01/30/24 11/06/24 Rx rosuvastatin 20 mg tablet 20 mg PO QHS #90 tabs 01/30/2405/23 Rx losartan 50 mg tablet 50 mg PO DAILY #90 tabs 02/26/24 0 11/06/24 Rx fenofibrate micronized 200 mg 200 mg PO QPM #90 caps 04/11/24 Rx capsule levothyroxine 125 mcg capsule 125 mcg PO QDAY 05/15/24 11/06/24 History ursodiol 250 mg tablet 250 mg PO BID 90 days #180 TABLETS 05/15/24 11/06/24 Rx clopidogrel 75 mg tablet (Plavix) 75 mg PO DAILY #90 tabs 08/20/24 11/06/24 Rx colestipol 1 gram tablet 1 g PO TID #180 tabs 11/06/24 Rx gabapentin 300 mg capsule 300 mg PO BID 11/06/24 11/06/24 Hi story Have you fallen in the past year?: No PFSH Medical History History of echocardiogram Ambulates with cane Wears glasses Post-menopausal Thyroid disease High cholesterol Excessive bleeding Easy bruising Dietary restriction Gastric reflux Non-smoker CPAP (continuous positive airway pressure) dependence Sleep apnea Leg cramps History of edema History of stress test Hypertension Cardiology follow-up encounter Obesity P-ANCA titer positive Nausea Atrophic vaginitis History of Velazquez's esophagus Essential (primary) hypertension Lumbar disc disease Hyperlipidemia History of OR (myocardial infarction) Leg pain Leg edema Abnormal biliary HIDA scan Abdominal pain Diarrhea Back pain Dermatitis due to sun Arthritis Hypothyroidism Syncope and collapse Premature ventricular contractions Dizziness Diabetes mellitus Dyspnea, unspecified Cough Atherosclerosis of coronary artery of [place] heart without angina pectoris Surgical History S/P trigger finger release History of cardiac catheterization Hx of shoulder surgery Status post tendon reattachment History of hip surgery History of left heart catheterization (11/06/12) History of bilateral cataract extraction History of foot surgery History of carpal tunnel release (more content not included)... Normal [facility] Hematocrit Auto (Bld) [Volum e fraction]Ordered By: Surjit Good on 11-06-2024 Hematocrit (Bld) [Volume fraction] 40.6 % 37-47 [facility] Hemoglobin measurementOrdere d By: Surjit Good on 11-06-2024 Hemoglobin (Bld) [Mass/Vol] 13.0 g/dL 12.0-15.0 [facility] Immature granulocytes/100 WB C Auto (Bld)Ordered By: Surjit Good on 11-06-2024 Immature granulocytes/100 WBC (Bld) 0.500 % 0.0-0.9 [facility] Comment on above: IG% - Immature Granu locytes (promyelocytes, myelocytes and metamyelocytes) > 1% indicates that a LEFT SHIFT is Present. Laboratory - Chemistry and C hemistry - challengeOrdered By: Surjit Good on 11-06-2024 AST [Catalytic activity/Vol] 28 U/L <32 [facility] Liver Profileon 11-06-2024 Albumin [Mass/Vol] 4.4 g/dL Normal 3.4-4.8 [facility] Comment on above: Performed By: #### L 500.4100, L500.3400 #### [facility] [address] [facility] [place], [address] ALK PHOS 39 U/L Normal 35-104 [facility] Comment on above: Performed By: #### L 500.4100, L500.3400 #### [facility] [address] [facility] [place], [address] ALT [Catalytic activity/Vol] 23 U/L Normal <=34 [facility] Comment on above: Performed By: #### L 500.4100, L500.3400 #### [facility] [address] [place], [address] AST [Catalytic activity/Vol] 28 U/L Normal <=31 [facility] Comment on above: Performed By: #### L 500.4100, L500.3400 #### [facility] [address] [place], [address] Bilirubin [Mass/Vol] 0.31 mg/dL Normal 0.00-1.30 [facility] Comment on above: Performed By: #### L 500.4100, L500.3400 #### [facility] [address] [place], [address] Bilirubin.direct [Mass/Vol] 0.15 mg/dL Normal 0.00-0.30 [facility] Comment on above: Performed By: #### L 500.4100, L500.3400 #### [facility] [address] [place], [address] Globulin (S) [Mass/Vol] 2.5 g/dL Normal 2.2-4.2 [facility] Comment on above: Performed By: #### L 500.4100, L500.3400 #### [facility] [address] [place], [address] T PROT 6.9 g/dL Normal 5.9-8.4 [facility] Comment on above: Performed By: #### L 500.4100, L500.3400 #### [facility] [address] [place], [address] Lymphocytes Auto (Unsp spec) [#/Vol]Ordered By: Surjit Good on 11-06-2024 Lymphocytes (Bld) [#/Vol] 1.16 10*3/uL 0.83-4.51 [facility] Lymphocytes/100 WBC Auto (Un sp spec)Ordered By: Surjit Good on 11-06-2024 Lymphocytes/100 WBC (Bld) 21.0 % 19-41 [facility] MCV (mean corpuscular volume ) determinationOrdered By: Surjit Good on 11-06-2024 MCV (RBC) [Entitic vol] 95.3 fL 81-99 [facility] Mean corpuscular hemoglobin (MCH) determinationOrdered By: Surjit Good on 11-06-2024 MCH (RBC) [Entitic mass] 30.5 pg 27.0-32.0 [facility] Mean corpuscular hemoglobin concentration (MCHC) determinationOrdered By: Surjit Good on 11-06-2024 MCHC (RBC) [Mass/Vol] 32.0 g/dL 32-36 [facility] Mean platelet volume determi nationOrdered By: Surjit Good on 11-06-2024 Platelet mean volume (Bld) [Entitic vol] 10.1 fL 6.2-12.0 [facility] Monocyte percentageOrdered B y: Surjit Good on 11-06-2024 Monocytes/100 WBC (Bld) 10.3 % High 0-10 [facility] Neutrophil percentageOrdered By: Surjit Good on 11-06-2024 Neutrophils/100 WBC (Bld) 64.4 % 47-70 [facility] Nucleated red blood cell per centageOrdered By: Surjit Good on 11-06-2024 Nucleated RBC/100 WBC (Bld) [Ratio] 0 % 0-5 [facility] Platelet countOrdered By: Franci Good on 11-06-2024 Platelets (Bld) [#/Vol] 230 10*3/uL 150-450 [facility] RBC Auto (Bld) [#/Vol]Ordere d By: Surjit Good on 11-06-2024 RBC (Bld) [#/Vol] 4.26 10*6/uL 4.2-5.4 [facility] Serum Creatinine AND GFRon 0 11-06-2024 Creatinine [Mass/Vol] 0.97 mg/dL Normal 0.70-1.20 [facility] Comment on above: Performed By: #### L 500.3410, L500.3400 #### [facility] [place], [address] GFR/1.73 sq M.predicted among non-blacks MDRD (S/P/Bld) [Vol rate/Area] 61 mL/min/{1.73_m2} Normal >60 [facility] Comment on above: Result Comment: mL/m in/1.73m2 CKD-EPI Creatinine Equation (2020) Performed By: #### L 500.4100, L500.3400 #### [facility] [address] [place], [address] Serum creatinine measurement (mass/volume)Ordered By: Surjit Good on 11-06-2024 Creatinine [Mass/Vol] 0.97 mg/dL 0.70-1.20 [facility] Serum globulin measurementOr dered By: Surjit Good on 11-06-2024 Globulin (S) [Mass/Vol] 2.5 g/dL 2.2-4.2 [facility] Serum or plasma alanine grayson otransferase (ALT) measurementOrdered By: Surjit Good on 11-06-2024 ALT [Catalytic activity/Vol] 23 U/L <35 [facility] Serum or plasma albumin missy urement (mass/volume)Ordered By: Surjit Good on 11-06-2024 Albumin [Mass/Vol] 4.4 g/dL 3.4-4.8 [facility] Serum or plasma alkaline angela sphatase measurementOrdered By: Surjit Good on 11-06-2024 ALP [Catalytic activity/Vol] 39 U/L 35-104 [facility] Total proteinOrdered By: Kaiser Good on 11-06-2024 Protein [Mass/Vol] 6.9 g/dL 5.9-8.4 [facility] White blood cell (WBC) count Ordered By: Surjit Good on 11-06-2024 WBC (Bld) [#/Vol] 5.5 10*3/uL 4.4-11.0 [facility] L/S Spine Comp/w Bending Vie wson 09-08-2024 L/S Spine Comp/w Bending Views [facility] Imaging Services [address] [place], [place] [address] L/S Spine Comp/w Bending Views MR#: [id number] Acct: [id number] Name: KORIN HARPER Rep #: [id number] : 1950 F 73 From: Reece Yoo PCP: Dr. Galina Tavarez, DO Status: REG CLI Study: L/S Spine Comp/w Bending Views Date of Exam: 0 09/08/24 Exam# [id number] Ordering Dr: Robbi Ang MD PROCEDURE: Lumbar spine radiographs REASON FOR EXAM: Pain TECHNIQUE: 6 views of the lumbar spine COMPARISON: None. FINDINGS: See impression RAD/L/S Spine Comp/w Bending Views IMPRESSION: Vertebral body heights are within normal limits. No significant malalignment. [id number] multilevel disc space narrowing, greatest at L5-S1. Moderate multilevel facet arthropathy, greatest from L2 through L5. Sacroiliac joints are intact. No gross pars defects. Negative for abnormal motion. Reading Location: [facility] CC: Dr. Robbi Ang MD; Dr. Galina Tavarez DO Cable Strander: Signed Normal [facility] C-Peptideon 07-19-2024 C PEPTIDE 3.9 ng/mL Normal 1.1-4.4 [facility] Comment on above: Result Comment: C-Pe ptide reference interval is for fasting patients. Performed By: #### L 500.4100, L500.3400 #### [facility] [address] [place], [address] Insulin Levelon 07-19-2024 INSULIN,FASTING 11.3 uIU/mL Normal 2.6-24.9 [facility] Comment on above: Result Comment: Perf ormed at: - [facility] [address] [id number] Custom Protection Officer: Scott Atkins PhD, Phone: [phone] Performed By: #### L 500.4100, L500.3403 #### [facility] [address] [place], [address] Albumin to globulin ratioOrd ered By: Galina Tavarez on 07-18-2024 Albumin/Globulin [Mass ratio] 1.2 {ratio} 0.9-2.4 [facility] Bilirubin, totalOrdered By: Galina Tavarez on 07-18-2024 Bilirubin [Mass/Vol] 0.40 mg/dL 0.20-1.00 [facility] Comment on above: For patients on eltr ombopag therapy, use of Dimension [place] TBIL is not recommended. Blood urea nitrogen (BUN)/cr eatinine ratioOrdered By: Galina Tavarez on 07-18-2024 Urea nitrogen/Creatinine [Mass ratio] 25.6 mg/mg High 05-18 [facility] C-peptideOrdered By: Galina boyer on 07-18-2024 C-Peptide 3.9 ng/mL 1.1-4.4 [facility] Comment on above: C-Peptide reference interval is for fasting patients. CORTISOL SERUMon 07-18-2024 CORTISOL 13.00 ug/dL Normal 3.44-22.45 [facility] Comment on above: Result Comment: Adul t (AM) 5.27 - 22.45 ug/dL Adult (PM) 3.44 - 16.76 ug/dL Performed By: #### L 506.0400, L509.6000, L501.9520, L3300.3500, L501.87636, L3100.7750, L500.4050 #### [facility] [address] [place], [place], [id number] Carbon dioxide measurementOr dered By: Galina Tavarez on 07-18-2024 CO2 [Moles/Vol] 27.0 mmol/L 21.0-32.0 [facility] Chloride measurementOrdered By: Galina Tavarez on 07-18-2024 Chloride [Moles/Vol] 105 mmol/L 98-107 [facility] Comprehensive Metabolic Prof ilon 07-18-2024 Albumin [Mass/Vol] 4.0 g/dL Normal 3.2-5.0 [facility] Comment on above: Performed By: #### L 500.4100, L500.3400 #### [facility] [address] [place], [address] Albumin/Globulin [Mass ratio] 1.2 {ratio} Normal 0.9-2.4 [facility] Comment on above: Performed By: #### L 500.4100, L500.3400 #### [facility] [address] [place], [address] ALK P 37 U/L Low 45-117 [facility] Comment on above: Performed By: #### L 500.4100, L500.3400 #### [facility] [address] [place], [address] ALT [Catalytic activity/Vol] 31 U/L Normal 13-56 [facility] Comment on above: Performed By: #### L 500.4100, L500.3400 #### [facility] [address] [place], [address] AST [Catalytic activity/Vol] 22 U/L Normal 15-37 [facility] Comment on above: Performed By: #### L 500.4100, L500.3400 #### [facility] [address] [place], [address] Bilirubin [Mass/Vol] 0.40 mg/dL Normal 0.20-1.00 [facility] Comment on above: Result Comment: For patients on eltrombopag therapy, use of Dimension [place] TBIL is not recommended. Performed By: #### L 500.4100, L500.3400 #### [facility] [address] [place], [address] BUN/CRE 25.6 RATIO High 10-20 [facility] Comment on above: Performed By: #### L 500.4100, L500.3400 #### [facility] [address] [place], [address] CA,Total 9.7 mg/dL Normal 8.5-10.1 [facility] Comment on above: Performed By: #### L 500.4100, L500.3400 #### [facility] [address] [place], [address] Chloride [Moles/Vol] 105 mmol/L Normal 98-107 [facility] Comment on above: Performed By: #### L 500.4100, L500.3400 #### [facility] [address] [place], [address] CO2 [Moles/Vol] 27.0 mmol/L Normal 21.0-32.0 [facility] Comment on above: Performed By: #### L 500.4100, L500.3400 #### [facility] [address] [place], [address] Creatinine [Mass/Vol] 0.86 mg/dL Normal 0.55-1.02 [facility] Comment on above: Result Comment: The validity of the calculated GFR GFRAA in patients over 70 years has not been determined. Clinical correlation is essential. Performed By: #### L 500.4100, L500.3400 #### [facility] [address] [place], [address] EST GFR - AA 83 mL/min Normal >60 [facility] Comment on above: Result Comment: Afri can Lithuanian GFR Calc Performed By: #### L 500.4100, L500.3400 #### [facility] [address] [place], [address] GAP 6 Normal 5-15 [facility] Comment on above: Performed By: #### L 500.4100, L500.3400 #### [facility] [address] [place], [address] GFR/1.73 sq M.predicted among non-blacks MDRD (S/P/Bld) [Vol rate/Area] 69 mL/min/{1.73_m2} Normal >60 [facility] Comment on above: Result Comment: Non- GFR Calc Performed By: #### L 500.4100, L500.3400 #### [facility] [address] [place], [address] Globulin (S) [Mass/Vol] 3.3 g/dL Normal 2.2-4.2 [facility] Comment on above: Performed By: #### L 500.4100, L500.3400 #### [facility] [address] [place], [address] Glucose [Mass/Vol] 146 mg/dL High 74-106 [facility] Comment on above: Result Comment: Fast ing Glucose result greater than or equal to 126 mg/dL suggests DIABETES MELLITUS per A.D.A. criteria. Performed By: #### L 500.4100, L500.3400 #### [facility] [address] [place], [address] Potassium [Moles/Vol] 4.1 mmol/L Normal 3.5-5.1 [facility] Comment on above: Performed By: #### L 500.4100, L500.3400 #### [facility] [address] [place], [address] Sodium [Moles/Vol] 138 mmol/L Normal 136-145 [facility] Comment on above: Performed By: #### L 500.4100, L500.3400 #### [facility] [address] [place], [address] T PROT 7.3 g/dL Normal 6.4-8.2 [facility] Comment on above: Performed By: #### L 500.4100, L500.3400 #### [facility] [address] [place], [address] Urea nitrogen [Mass/Vol] 22 mg/dL High 7-18 [facility] Comment on above: Performed By: #### L 500.4100, L500.3400 #### [facility] [address] [place], [address] Cortisol [Mass/Vol]Ordered B y: Galina Tavarez on 07-18-2024 Cortisol 13.00 ug/dL 3.44-22.45 [facility] Comment on above: Adult (AM) 5.27 - 22 .45 ug/dL Adult (PM) 3.44 - 16.76 ug/dL Direct serum free thyroxine (FT4) measurementOrdered By: Galina Tavarez on 07-18-2024 Free T4 [Mass/Vol] 1.18 ng/dL 0.76-1.46 [facility] Estimated glomerular filtrat ion rate (GFR) AmericanOrdered By: Galina Tavarez on 07-18-2024 Estimated GFR (MDRD) Amer 83 mL/min >60 [facility] Comment on above: GFR Calc Free T3on 07-18-2024 Free T3 [Mass/Vol] 2.6 pg/mL Normal 2.18-3.98 [facility] Comment on above: Performed By: #### L 500.4100, L500.3400 #### [facility] [address] [place] [address], [address] Free [id number] By: Galina Figueroa s on 07-18-2024 Free Triiodothyronine (T3) pg/dL 2.6 pg/mL 2.18-3.98 [facility] Glomerular filtration rate ( GFR) estimationOrdered By: Galina Tavarez on 07-18-2024 Estimated GFR (MDRD) Non-Af Amer 69 mL/min >60 [facility] Comment on above: Non- GFR Calc Glucose measurementOrdered B y: Galina Tavarez on 07-18-2024 Glucose [Mass/Vol] 146 mg/dL High 74-106 [facility] Comment on above: Fasting Glucose resu lt greater than or equal to 126 mg/dL suggests DIABETES MELLITUS per A.D.A. criteria. Insulin [Mass/Vol]Ordered By : Galina Tavarez on 07-18-2024 Insulin Level 11.3 uIU/mL 2.6-24.9 [facility] Comment on above: Performed at: [address] [id number] Director: Scott Atkins PhD, Phone: [phone] Laboratory - Chemistry and C hemistry - challengeOrdered By: Galina Tavarez on 07-18-2024 AST [Catalytic activity/Vol] 22 U/L 15-37 [facility] Pelvis 1 or 2 Viewson 2023 Pelvis 1 or [address] [facility] Imaging Services [address] [place] [address] Pelvis 1 or 2 Views MR#: [id number] Acct: [id number] Name: KORIN HARPER Rep #: [id number] : 1950 F 73 From: Carmelina Hendrickson MD PCP: Dr. Galina Tavarez DO Status: REG CLI Study: Pelvis 1 or 2 Views Date of Exam: 07/18/24 Exam# [id number] Ordering Dr: Galina Tavarez DO [id number] EXAM: XR PELVIS, 1 OR 2 VIEWS CLINICAL INDICATION: PAIN TECHNIQUE: Frontal view of the pelvis. COMPARISON: CT including the pelvis October 20, 2021. FINDINGS: BONES/JOINTS: There was marked L5-S1 vacuum disc and disc space narrowing on prior CT, not well seen on this exam. No displaced fracture. No destructive or sclerotic lesions. Note that overlapping bowel shadows may however obscure fine detail. Sacroiliac joints are unremarkable. No widening of the pubic symphysis. The articular structures are unremarkable. SOFT TISSUES: Soft tissue calcifications are again noted flanks seen on prior CT. No soft tissue swelling or gas. RAD/Pelvis 1 or 2 Views IMPRESSION: No acute findings in the pelvis. Electronically Signed: Carmelina Hendrickson MD at 3:14 EST , CC: Dr. Galina Tavarez DO Cable Strander: Signed Normal [facility] Potassium measurementOrdered By: Galina Tavarez on 07-18-2024 Potassium [Moles/Vol] 4.1 mmol/L 3.5-5.1 [facility] Serum anion gap measurementO rdered By: Galina Tavarez on 07-18-2024 Anion gap [Moles/Vol] 6 mmol/L 5-15 [facility] Serum globulin measurementOr dered By: Galina Tavarez on 07-18-2024 Globulin (S) [Mass/Vol] 3.3 g/dL 2.2-4.2 [facility] Serum or plasma alanine grayson otransferase (ALT) measurementOrdered By: Galina Tavarez on 07-18-2024 ALT [Catalytic activity/Vol] 31 U/L 13-56 [facility] Serum or plasma albumin missy urement (mass/volume)Ordered By: Galina Tavarez on 07-18-2024 Albumin [Mass/Vol] 4.0 g/dL 3.2-5.0 [facility] Serum or plasma alkaline angela sphatase measurementOrdered By: Galina Tavarez on 07-18-2024 ALP [Catalytic activity/Vol] 37 U/L Low 45-117 [facility] Serum or plasma calcium missy urement (mass/volume)Ordered By: Galina Tavarez on 07-18-2024 Calcium [Mass/Vol] 9.7 mg/dL 8.5-10.1 [facility] Serum or plasma creatinine m easurement (mass/volume)Ordered By: Galina Tavarez on 07-18-2024 Creatinine [Mass/Vol] 0.86 mg/dL 0.55-1.02 [facility] Comment on above: The validity of the calculated GFR & GFRAA in patients over 70 years has not been determined. Clinical correlation is essential. Serum or plasma urea nitroge n measurement (mass/volume)Ordered By: Galina Tavarez on 07-18-2024 Urea nitrogen [Mass/Vol] 22 mg/dL High 7-18 [facility] Sodium levelOrdered By: Galina Tavarez on 07-18-2024 Sodium [Moles/Vol] 138 mmol/L 136-145 [facility] T4 Free Directon 07-18-2024 T4 FREE DIRECT 1.18 ng/dL Normal 0.76-1.46 [facility] Comment on above: Performed By: #### L 500.9753, L500.3400 #### [facility] [address] [place], [place] [address]melba. [place], [place], [id number] TSH QnOrdered By: Galina Tavarez on 07-18-2024 Thyroid Stimulating Hormone (TSH) 2.310 uIU/mL 0.358-3.740 [facility] Thyroid Stim Hormone (TSH)on 07-18-2024 TSH 2.310 uIU/mL Normal 0.358-3.740 [facility] Comment on above: Performed By: #### L 500.4100, L500.3400 #### [facility] [address] [place], [address] Total proteinOrdered By: Helga Tavarez on 07-18-2024 Protein [Mass/Vol] 7.3 g/dL 6.4-8.2 [facility] Lipid Profileon 07-07-2024 Cholesterol [Mass/Vol] 134 mg/dL Normal 200 [facility] Comment on above: Result Comment: <200 mg/dL Desirable 200-240 mg/dL Borderline >240 mg/dL High Risk Performed By: #### L 500.4100, L500.3400 #### [facility] [address] [place], [address] Cholesterol in HDL [Mass/Vol] 53 mg/dL Normal [facility] Comment on above: Result Comment: The drugs N-Acetylcysteine and Metamizole may falsely depress this assay. Reference Range HDL <40 mg/dL Low HDL Cholesterol HDL >or= 60 mg/dL High HDL Cholesterol Performed By: #### L 500.4100, L500.3400 #### [facility] [address] [place], [address] Cholesterol in LDL [Mass/Vol] 49 mg/dL Normal 0-130 [facility] Comment on above: Performed By: #### L 500.4100, L500.3400 #### [facility] [address] [place], [address] Cholesterol in VLDL [Mass/Vol] 32 mg/dL Normal 5-40 [facility] Comment on above: Performed By: #### L 500.4100, L500.3400 #### [facility] [address] [place], [address] Triglyceride [Mass/Vol] 162 mg/dL Normal [facility] Comment on above: Result Comment: The drugs N-Acetylcysteine and Metamizole may falsely depress this assay. Serum Triglycerides Reference Interval Normal <150 mg/dL Borderline high 150 - 199 mg/dL High 200 - 499 mg/dL Very High > or = 500 mg/dL Performed By: #### L 500.4100, L500.3400 #### [facility] [address] [place], [address] Liver Profileon 07-07-2024 Albumin [Mass/Vol] 3.8 g/dL Normal 3.2-5.0 [facility] Comment on above: Performed By: #### L 500.4100, L500.3400 #### [facility] [address] [place], [address] ALK P 35 U/L Low 45-117 [facility] Comment on above: Performed By: #### L 500.4100, L500.3400 #### [facility] [address] [place], [address] ALT [Catalytic activity/Vol] 28 U/L Normal 13-56 [facility] Comment on above: Performed By: #### L 500.4100, L500.3400 #### [facility] [address] [place], [address] AST [Catalytic activity/Vol] 23 U/L Normal 15-37 [facility] Comment on above: Performed By: #### L 500.4100, L500.3400 #### [facility] [address] [place], [address] Bilirubin [Mass/Vol] 0.50 mg/dL Normal 0.20-1.00 [facility] Comment on above: Result Comment: For patients on eltrombopag therapy, use of Dimension [place] TBIL is not recommended. Performed By: #### L 500.4100, L500.3400 #### [facility] [address] [place], [address] Bilirubin.direct [Mass/Vol] 0.13 mg/dL Normal 0.00-0.30 [facility] Comment on above: Performed By: #### L 500.4100, L500.3400 #### [facility] [address] [place], [address] Globulin (S) [Mass/Vol] 3.2 g/dL Normal 2.2-4.2 [facility] Comment on above: Performed By: #### L 500.4100, L500.3400 #### [facility] [address] [place], [address] T PROT 7.0 g/dL Normal 6.4-8.2 [facility] Comment on above: Performed By: #### L 500.4100, L500.3400 #### [facility] [address] [place], [address] Anti-Mitochondrial ABon ANTIMITOCHON AB <20.0 Normal 0.0-20.0 [facility] Comment on above: Result Comment: Nega tive 0.0 - 20.0 Equivocal 20.1 - 24.9 Positive >24.9 Mitochondrial (M2) Antibodies are found in 90-96% of patients with primary biliary cirrhosis. Performed at: [address] [id number] Custom Protection Officer: Scott Atkins PhD, Phone: [phone] Performed By: #### L 501.1105, L500.3400, L100.0100, L101.9900, L501.6710, L800.1280, L803.2200 #### [facility] [address] [place], [address] Anti-Smooth Muscle ABSon ANTISMOOTH MUSC 3 Units Normal 0-19 [facility] Comment on above: Result Comment: Nega tive 0 - 19 Weak positive 20 - 30 Moderate to strong positive >30 Actin Antibodies are found in 52-85% of patients with autoimmune hepatitis or chronic active hepatitis and in 22% of patients with primary biliary cirrhosis. Performed at: [address] [id number] Custom Protection Officer: Scott Atkins PhD, Phone: [phone] Performed By: #### L 501.1105, L500.3400, L100.0100, L101.9900, L501.6710, L800.1280, L803.2200 #### [facility] [address] [facility] [place], [place], [id number] Erythrocyte Sed Rateon 07-04 SED RATE 4 mm/hr Normal 0-30 [facility] Comment on above: Result Comment: AMENDED REPORT 07/04/24 0900 SED RATE previously reported as: 5 mm/hr Performed By: #### L 501.1105, L500.3400, L100.0100, L101.9900, L501.6710, L800.1280, L803.2200 #### [facility] [address] [facility] [place], [place], [id number] CBC W/Diff, Automatedon Absolute Lymph 1.12 X10 3/uL Normal 0.83-4.51 [facility] Comment on above: Performed By: #### L 501.1105, L500.3400, L100.0100, L101.9900, L501.6710, L800.1280, L803.2200 #### [facility] [address] [place], [place], [id number] Absolute Neut 3.2 X10 3/uL Normal 2.0-7.7 [facility] Comment on above: Performed By: #### L 501.1105, L500.3400, L100.0100, L101.9900, L501.6710, L800.1280, L803.2200 #### [facility] [address] [place], [address] Basophils/100 WBC (Bld) 0.8 % Normal 0-1 [facility] Comment on above: Performed By: #### L 501.1105, L500.3400, L100.0100, L101.9900, L501.6710, L800.1280, L803.2200 #### [facility] [address] [place], [address] Eosinophils/100 WBC (Bld) 1.8 % Normal 0-5 [facility] Comment on above: Performed By: #### L 501.1105, L500.3400, L100.0100, L101.9900, L501.6710, L800.1280, L803.2200 #### [facility] [address] [place], [address] Erythrocyte distribution width (RBC) [Ratio] 13.5 % Normal 11.6-14.6 [facility] Comment on above: Performed By: #### L 501.1105, L500.3400, L100.0100, L101.9900, L501.6710, L800.1280, L803.2200 #### [facility] [address] [place], [address] Hematocrit (Bld) [Volume fraction] 39.5 % Normal 37-47 [facility] Comment on above: Performed By: #### L 501.1105, L500.3400, L100.0100, L101.9900, L501.6710, L800.1280, L803.2200 #### [facility] [address] [place], [address] Hemoglobin (Bld) [Mass/Vol] 12.9 g/dL Normal 12.0-15.0 [facility] Comment on above: Performed By: #### L 501.1105, L500.3400, L100.0100, L101.9900, L501.6710, L800.1280, L803.2200 #### [facility] [address] [place], [address] IG% 0.600 Normal 0.0-0.9 [facility] Comment on above: Result Comment: IG% - Immature Granulocytes (promyelocytes, myelocytes and metamyelocytes) > 1% indicates that a LEFT SHIFT is Present. Performed By: #### L 501.1105, L500.3400, L100.0100, L101.9900, L501.6710, L800.1280, L803.2200 #### [facility] [address] [place], [address] Lymphocytes/100 WBC (Bld) 21.9 % Normal 19-41 [facility] Comment on above: Performed By: #### L 501.1105, L500.3400, L100.0100, L101.9900, L501.6710, L800.1280, L803.2200 #### [facility] [address] [facility] [place], [address] MCH (RBC) [Entitic mass] 31.2 pg Normal 27.0-32.0 [facility] Comment on above: Performed By: #### L 501.1105, L500.3400, L100.0100, L101.9900, L501.6710, L800.1280, L803.2200 #### [facility] [address] [place], [address] MCHC (RBC) [Mass/Vol] 32.7 g/dL Normal 32-36 [facility] Comment on above: Performed By: #### L 501.1105, L500.3400, L100.0100, L101.9900, L501.6710, L800.1280, L803.2200 #### [facility] [address] [place], [address] MCV (RBC) [Entitic vol] 95.6 fL Normal 81-99 [facility] Comment on above: Performed By: #### L 501.1105, L500.3400, L100.0100, L101.9900, L501.6710, L800.1280, L803.2200 #### [facility] [address] [place], [address] Monocytes/100 WBC (Bld) 12.9 % High 0-10 [facility] Comment on above: Performed By: #### L 501.1105, L500.3400, L100.0100, L101.9900, L501.6710, L800.1280, L803.2200 #### [facility] [address] [place], [address] Neutrophils/100 WBC (Bld) 62.0 % Normal 47-70 [facility] Comment on above: Performed By: #### L 501.1105, L500.3400, L100.0100, L101.9900, L501.6710, L800.1280, L803.2200 #### [facility] [address] [place], [address] Nucleated RBC (Bld) [#/Vol] 0 10*3/uL Normal 0-5 [facility] Comment on above: Performed By: #### L 501.1105, L500.3400, L100.0100, L101.9900, L501.6710, L800.1280, L803.2200 #### [facility] [address] [place], [address] Platelet mean volume (Bld) [Entitic vol] 10.1 fL Normal 6.2-12.0 [facility] Comment on above: Performed By: #### L 501.1105, L500.3400, L100.0100, L101.9900, L501.6710, L800.1280, L803.2200 #### [facility] [address] [place], [address] Platelets (Bld) [#/Vol] 264 10*3/uL Normal 150-450 [facility] Comment on above: Performed By: #### L 501.1105, L500.3400, L100.0100, L101.9900, L501.6710, L800.1280, L803.2200 #### [facility] [address] [place], [address] RBC (Bld) [#/Vol] 4.13 10*6/uL Low 4.2-5.4 [facility] Comment on above: Performed By: #### L 501.1105, L500.3400, L100.0100, L101.9900, L501.6710, L800.1280, L803.2200 #### [facility] [address] [place], [address] RDW SD 47.5 fl High 35.1-43.9 [facility] Comment on above: Performed By: #### L 501.1105, L500.3400, L100.0100, L101.9900, L501.6710, L800.1280, L803.2200 #### [facility] [address] [place], [address] WBC (Bld) [#/Vol] 5.1 10*3/uL Normal 4.4-11.0 [facility] Comment on above: Performed By: #### L 501.1105, L500.3400, L100.0100, L101.9900, L501.6710, L800.1280, L803.2200 #### [facility] [address] [place], [place], [id number] CRPon 07-03-2024 C-REACTIVE PROT < 2.90 Normal 0.0-3.0 [facility] Comment on above: Result Comment: C-Re active Protein (CRP) provides useful information for the diagnosis, therapy and monitoring of inflammatory processes and associated diseases. For the evaluation of Relative Risk for Cardiovascular Disease, a High Sensitivity CRP (HSCRP) should be ordered. Performed By: #### L 501.1105, L500.3400, L100.0100, L101.9900, L501.6710, L800.1280, L803.2200 #### [facility] [address] [place], [place], [id number] Liver Profileon 07-03-2024 Albumin [Mass/Vol] 4.1 g/dL Normal 3.2-5.0 [facility] Comment on above: Performed By: #### L 501.1105, L500.3400, L100.0100, L101.9900, L501.6710, L800.1280, L803.2200 #### [facility] [address] [place], [place], [id number] ALK P 37 U/L Low 45-117 [facility] Comment on above: Performed By: #### L 501.1105, L500.3400, L100.0100, L101.9900, L501.6710, L800.1280, L803.2200 #### [facility] [address] [place], [address] ALT [Catalytic activity/Vol] 28 U/L Normal 13-56 [facility] Comment on above: Performed By: #### L 501.1105, L500.3400, L100.0100, L101.9900, L501.6710, L800.1280, L803.2200 #### [facility] [address] [place], [address] AST [Catalytic activity/Vol] 25 U/L Normal 15-37 [facility] Comment on above: Performed By: #### L 501.1105, L500.3400, L100.0100, L101.9900, L501.6710, L800.1280, L803.2200 #### [facility] [address] [place], [address] Bilirubin [Mass/Vol] 0.40 mg/dL Normal 0.20-1.00 [facility] Comment on above: Result Comment: For patients on eltrombopag therapy, use of Dimension [place] TBIL is not recommended. Performed By: #### L 501.1105, L500.3400, L100.0100, L101.9900, L501.6710, L800.1280, L803.2200 #### [facility] [address] [place], [address] Bilirubin.direct [Mass/Vol] 0.15 mg/dL Normal 0.00-0.30 [facility] Comment on above: Performed By: #### L 501.1105, L500.3400, L100.0100, L101.9900, L501.6710, L800.1280, L803.2200 #### [facility] [address] [place], [address] Globulin (S) [Mass/Vol] 3.0 g/dL Normal 2.2-4.2 [facility] Comment on above: Performed By: #### L 501.1105, L500.3400, L100.0100, L101.9900, L501.6710, L800.1280, L803.2200 #### [facility] [address] [place], [address] T PROT 7.1 g/dL Normal 6.4-8.2 [facility] Comment on above: Performed By: #### L 501.1105, L500.3400, L100.0100, L101.9900, L501.6710, L800.1280, L803.2200 #### [facility] [address] [place], [address] Serum Creatinine AND GFRon 1 09-03-2023 Creatinine [Mass/Vol] 0.96 mg/dL Normal 0.55-1.02 [facility] Comment on above: Result Comment: The validity of the calculated GFR GFRAA in patients over 70 years has not been determined. Clinical correlation is essential. Performed By: #### L 501.1105, L500.3400, L100.0100, L101.9900, L501.6710, L800.1280, L803.2200 #### [facility] [address] [place], [address] EST GFR - AA 73 mL/min Normal >60 [facility] Comment on above: Result Comment: Afri can Lithuanian GFR Calc Performed By: #### L 501.1105, L500.3400, L100.0100, L101.9900, L501.6710, L800.1280, L803.2200 #### [facility] [address] [place], [place], [id number] GFR/1.73 sq M.predicted among non-blacks MDRD (S/P/Bld) [Vol rate/Area] 61 mL/min/{1.73_m2} Normal >60 [facility] Comment on above: Result Comment: Non- GFR Calc Performed By: #### L 501.1105, L500.3400, L100.0100, L101.9900, L501.6710, L800.1280, L803.2200 #### [facility] [address] 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 Complaint: 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 Is patient in pain?: No Allergies hydrocodone bitartrate (From Vicodin) Allergy (Verified 06/25/24 09:29) Itching Iodinated Contrast Media Allergy (Verified 06/25/24 09:29) Anaphylaxis codeine Adverse Reaction (Severe, Verified 06/25/24 09:29) Unknown esomeprazole (From Nexium) Adverse Reaction (Severe, Verified 06/25/24 09:29) Causes elevated LFTs Sulfa (Sulfonamide Antibiotics) Adverse Reaction (Severe, Verified 06/25/24 09:29) Causes elevated LFTs levofloxacin (From Levaquin) Adverse Reaction (Verified 06/25/24 09:29) Nausea/Vom/Diarrhea Niacin Preparations Adverse Reaction (Verified 06/25/24 09:29) Other Medications ???Medication ???Instructions ???Recorded ???Confirmed ???Type nitroglycerin 0.4 mg sublingual 0.4 mg sublingual Q5-15M PRN chest 06/16/20 06/25/24 Rx tablet pain #25 tabs omeprazole 40 mg capsule,delayed 40 mg PO DAILY 09/14/20 06/25/24 History release allopurinol 100 mg tablet 100 mg PO DAILY 03/07/21 06/25/24 History ipratropium bromide 42 mcg (0.06 2 spray intranasal PRN PRN Runny 07/12/21 06/25/24 History %) nasal spray Nose Lactobacillus acidophilus 10 10,000 mmu cells PO DAILY 01/26/22 06/25/24 History billion cell capsule (Probiotic) ascorbic acid (vitamin C) 500 mg 500 mg PO DAILY 01/26/22 06/25/24 History tablet (Vitamin C) fiber 2 tab PO DAILY 10/31/22 06/25/24 History liothyronine 5 mcg tablet 5 mcg PO DAILY 10/31/22 06/25/24 History glipizide 10 mg tablet, extended 10 mg PO DAILY 01/23/23 06/25/24 History release 24 hr triamcinolone acetonide 0.1 % 1 applic topical BID PRN pain 01/23/23 06/25/24 History topical cream clopidogrel 75 mg tablet (Plavix) 75 mg PO DAILY #90 tabs 08/08/23 06/25/24 Rx acetaminophen 650 mg 1,300 mg PO Q12H 10/02/23 06/25/24 History tablet,extended release d-mannose 500 mg capsule (AZO 500 mg PO DAILY 10/02/23 06/25/24 History D-Mannose) gabapentin 300 mg capsule 300 mg PO DAILY 10/02/23 06/25/24 History vitamin E (dl, acetate) 180 mg 180 mg PO DAILY 10/02/23 06/25/24 History (400 unit) capsule hydrochlorothiazide 25 mg tablet 25 mg PO DAILY #90 tabs 11/27/23 06/25/24 Rx amlodipine 5 mg tablet 5 mg PO DAILY #90 tabs 01/04/24 06/25/24 Rx estradiol 0.01% (0.1 mg/gram) 1 g vaginal 3XW 01/04/24 06/25/24 History vaginal cream (Estrace) metformin 500 mg tablet,extended 500 mg PO BID 01/04/24 06/25/24 History release 24 hr metoprolol tartrate 100 mg tablet 100 mg PO BID #180 tabs 01/30/24 06/25/24 Rx rosuvastatin 20 mg tablet 20 mg PO QHS #90 tabs 01/30/24 06/25/24 Rx losartan 50 mg tablet 50 mg PO DAILY #90 tabs 02/26/24 06/25/24 Rx fenofibrate micronized 200 mg 200 mg PO QPM #90 caps 04/11/24 06/25/24 Rx capsule colestipol 1 gram tablet 3 g (3 x 1 gram) PO ONCE #90 tabs 05/15/24 06/25/24 Rx levothyroxine 125 mcg capsule 125 mcg PO QDAY 05/15/24 06/25/24 History ursodiol 250 mg tablet 250 mg PO BID 90 days #180 TABLETS 05/15/24 06/25/24 Rx Is last menstrual period known: No Post menopausal: Yes Patient : No : No PFSH Medical History History of echocardiogram Ambulates with cane Wears glasses Post-menopausal Thyroid disease High cholesterol Excessive bleeding Easy bruising Dietary restriction Gastric reflux Non-smoker CPAP (continuous positive airway pressure) dependence Sleep apnea Leg cramps History of edema History of stress test Hypertension Cardiology follow-up encounter Obesity P-ANCA titer positive Nausea Atrophic vaginitis History of Velazquez's esophagus Essential (primary) hypertension Lumbar disc disease Hyperlipidemia History of OR (myocardial infarction) Leg pain Leg edema Abnormal biliary HIDA scan Abdominal pain Diarrhea Back pain Dermatitis due to sun Arthritis Hypothyroidism Syncope and collapse Premature ventricular contractions Dizziness Diabetes mellitus Dyspnea, unspecified Cough Atherosclerosis of coronary artery of [place] heart without angina pectoris Surgical History S/P trigger finger release History of cardiac catheterization Hx of shoulder surgery Status post tendon reattachment History of (more content not included)... Normal [facility] 24 hour urine 5-hydroxyindol eacetate measurement (mass/volume)Ordered By: Bakari Matthews on 11-16-2023 5-Hydroxyindoleacetate (24H U) [Mass/Vol] 1.9 mg/L Undefined [facility] Comment on above: This test was develo ped and its performance characteristicsdetermined by [facility]. It has not been cleared orapproved by the Food and Drug Administration. 24 hour urine 5-hydroxyindol eacetic acid (5-HIAA) measurement (mass/time)Ordered By: Bakari Matthews on 11-16-2023 5-Hydroxyindoleacetate (24H U) [Mass/Time] 4.5 mg/24 hr 0.0-14.9 [facility] Comment on above: Performed at: [address] [id number] Director: John Morel MD, Phone: [phone] Albumin Elph [Mass/Vol]Order ed By: Bakari Matthews on 11-13-2023 Albumin [Mass/Vol] 4.0 g/dL 2.9-4.4 [facility] Erythrocyte sedimentation ra teOrdered By: Bakari Matthews on 11-13-2023 ESR (Bld) [Velocity] 9 mm/h 0-30 [facility] Interpretation of serum or p lasma protein pattern by immunofixation (narrative resultOrdered By: Bakari Mathtews on 11-13-2023 Protein Fractions Immunofixation John [Interp] Not Observed g/dL Not Observed [facility] No Panel InformationOrdered By: Bakari Matthews on 11-13-2023 Addendum Document Comment . [facility] Comment on above: Protein electrophore sis scan will follow via computer,mail, or cardiologist delivery. Atypical p-ANCA 1:20 titer Neg:<1:20 [facility] Comment on above: The atypical pANCA p attern has been observed in asignificant percentage of patients with ulcerative colitis,primary sclerosing cholangitis and autoimmune hepatitis. C-Reactive Protein Extended Range < 2.90 mg/L 0.0-3.0 [facility] Comment on above: C-Reactive Protein ( CRP) provides useful information for thediagnosis, therapy and monitoring of inflammatory processesand associated diseases. For the evaluation of Relative Riskfor Cardiovascular Disease, a High Sensitivity CRP (HSCRP)should be ordered. Centromere B Antibody <0.2 AI 0.0-0.9 [facility] Immunoglobulin M 122 mg/dL 26-217 [facility] FRANCI-1 Antibody <0.2 AI 0.0-0.9 [facility] Prolactin 10.7 ng/mL [facility] Comment on above: NORMAL REFERENCE RAN GES FEMALE NON- 2.2 - 30.3 ng/mL 8.1 - 347.6 ng/mL POST-MENOPAUSAL 0.7 - 31.5 ng/mL MALE 2.5 - 17.4 ng/mL PMP CERTIFIED PROJECT MANAGER Antibody <0.2 AI 0.0-0.9 [facility] SM Antibody <0.2 AI 0.0-0.9 [facility] SS-A/Ro IgG Antibody < 0.2 AI 0.0-0.9 [facility] SS-B/La IgG Antibody < 0.2 AI 0.0-0.9 [facility] Plasma epinephrine measureme nt (mass/volume)Ordered By: Bakari Matthews on 11-13-2023 EPINEPHrine (P) [Mass/Vol] 30 pg/mL 0-62 [facility] Plasma norepinephrine measur ement (mass/volume)Ordered By: Bakari Matthews on 11-13-2023 Norepinephrine (P) [Mass/Vol] 536 pg/mL 0-874 [facility] Serum DNA double strand anti body assay (units/volume)Ordered By: Bakari Matthews on 11-13-2023 DNA double strand Ab Qn (S) 1 [IU]/mL 0-9 [facility] Comment on above: Negative <5 Equivoca l 5 - 9 Positive >9 Serum Scl-70 antibody assay (units/volume)Ordered By: Bakari Matthews on 11-13-2023 SCL-70 extractable nuclear Ab Qn (S) <0.2 AI 0.0-0.9 [facility] Serum [id number] measu rement by electrophoresisOrdered By: Bakari Matthews on 11-13-2023 Alpha 1 globulin Elph [Mass/Vol] 0.2 g/dL 0.0-0.4 [facility] Alpha 1 globulin Elph [Mass/Vol] 0.7 g/dL 0.4-1.0 [facility] Serum classic neutrophil cyt oplasmic antibody assay (units/volume)Ordered By: Bakari Matthews on 11-13-2023 Neutrophil cytoplasmic Ab.classic Qn (S) <1:20 titer Neg:<1:20 [facility] Serum globulin measurement ( mass/volume)Ordered By: Bakari Matthews on 11-13-2023 Globulin (S) [Mass/Vol] 3.2 g/dL 2.2-3.9 [facility] Serum or plasma IgA measurem ent (mass/volume)Ordered By: Bakari Matthews on 11-13-2023 IgA [Mass/Vol] 168 mg/dL 64-422 [facility] Serum or plasma IgG measurem ent (mass/volume)Ordered By: Bakari Matthews on 11-13-2023 IgG [Mass/Vol] 946 mg/dL 586-1602 [facility] Serum or plasma beta globuli n measurement by electrophoresis (mass/volume)Ordered By: Bakari Matthews on 11-13-2023 Beta globulin Elph [Mass/Vol] 1.3 g/dL 0.7-1.3 [facility] Serum or plasma cortisol monica surement (mass/volume)Ordered By: Bakari Matthews on 11-13-2023 Cortisol [Mass/Vol] 16.30 ug/dL 3.44-22.45 [facility] Comment on above: Adult (AM) 5.27 - 22 .45 ug/dL Adult (PM) 3.44 - 16.76 ug/dLPlease note revised CORTISOL reference range effective 2019. Serum or plasma dopamine monica surement (mass/volume)Ordered By: Bakari Matthews on 11-13-2023 DOPamine [Mass/Vol] <30 pg/mL 0-48 [facility] Serum or plasma gamma globul in measurement by electrophoresis (mass/volume)Ordered By: Bakari Matthews on 11-13-2023 Gamma globulin Elph [Mass/Vol] 1.0 g/dL 0.4-1.8 [facility] Serum or plasma gastrin missy urement (mass/volume)Ordered By: Bakrai Matthews on 11-13-2023 Gastrin [Mass/Vol] 114 pg/mL 0-115 [facility] Comment on above: Siemens Immulite 200 0 Immunochemiluminometric assay (ICMA)Values obtained with different assay methods or kits cannotbe used interchangeably. Results cannot be interpreted asabsolute evidence of the presence or absence of malignantdisease.Performed at: - [address] [id number] Director: Scott Atkins PhD, Phone: [phone] at: [facility] [address] [id number] Director: John Morel MD, Phone: [phone] Serum or plasma immunoelectr ophoresis interpretation (nominal result)Ordered By: Bakari Matthews on 11-13-2023 Interpretation IEP [Interp] Comment: . [facility] Comment on above: Presence of monoclon al protein is unclear at this time. Suggestrepeat in 3 to 6 months if clinically indicated. Serum perinuclear neutrophil cytoplasmic antibody titer by immunofluorescenceOrdered By: Bakari Matthews on 11-13-2023 Neutrophil cytoplasmic Ab.perinuclear IF (S) [Titer] <1:20 titer Neg:<1:20 [facility] Comment on above: The presence of posi tive fluorescence exhibiting P-ANCA orC-ANCA patterns alone is not specific for the diagnosis ofWegener's Granulomatosis (WG) or microscopic polyangiitis.Decisions about treatment should not be based solely onANCA IFA results. The International ANCA Group Consensusrecommends follow up testing of positive sera with both ME-3 and MPO-ANCA enzyme immunoassays. As many as 5% serumsamples are positive only by EIA. Ref. AM J Clin [id number];111:507-513. Thin prep Papanicolaou smear with manual screeningOrdered By: Bakari Matthews on 11-13-2023 Thin prep Papanicolaou smear with manual screening 1.3 0.7-1.7 [facility] Total protein bloodOrdered B y: Bakari Matthews on 11-13-2023 Protein [Mass/Vol] 7.2 g/dL 6.0-8.5 [facility] Absolute lymphocyte countOrd ered By: Galina Tavarez on 10-22-2023 Lymphocytes Auto (Unsp spec) [#/Vol] 1.27 10*3/uL 0.83-4.51 [facility] Automated lymphocyte count a s percentage of total leukocytesOrdered By: Galina Tavarez on 10-22-2023 Lymphocytes/100 WBC Auto (Unsp spec) 11.1 % 19-41 [facility] Basophil percentageOrdered B y: Galina Tavarez on 10-22-2023 Basophils/100 WBC (Bld) 0.7 % 0-1 [facility] Bilirubin [Mass/Vol] 0.50 mg/dL 0.20-1.00 [facility] Comment on above: For patients on eltr ombopag therapy, use of Dimension [place] TBIL is not recommended. Chloride [Moles/Vol] 106 mmol/L 98-107 [facility] Eosinophils/100 WBC (Bld) 2.6 % 0-5 [facility] Glucose [Mass/Vol] 297 mg/dL 74-106 [facility] Comment on above: Glucose result great er than or equal to 200 mg/dLsuggests DIABETES MELLITUS per A.D.A. criteria. Hemoglobin (Bld) [Mass/Vol] 13.6 g/dL 12.0-15.0 [facility] LDH [Catalytic activity/Vol] 173 U/L 84-246 [facility] Monocytes/100 WBC (Bld) 8.1 % 0-10 [facility] Neutrophils (Bld) [#/Vol] 8.8 10*3/uL 2.0-7.7 [facility] Neutrophils/100 WBC (Bld) 76.9 % 47-70 [facility] Potassium [Moles/Vol] 4.2 mmol/L 3.5-5.1 [facility] Protein [Mass/Vol] 7.4 g/dL 6.4-8.2 [facility] Sodium [Moles/Vol] 138 mmol/L 136-145 [facility] WBC (Bld) [#/Vol] 11.5 10*3/uL 4.4-11.0 [facility] Determination of erythrocyte mean corpuscular volume (MCV)Ordered By: Galina Tavarez on 10-22-2023 MCV (RBC) [Entitic vol] 92.4 fL 81-99 [facility] Erythrocyte distribution wid th ratioOrdered By: Galina Tavarez on 10-22-2023 Erythrocyte distribution width (RBC) [Ratio] 12.7 % 11.6-14.6 [facility] Erythrocyte distribution wid th standard deviationOrdered By: Galina Tavarez on 10-22-2023 Erythrocyte distribution width (RBC) [Entitic vol] 42.8 fL 35.1-43.9 [facility] Erythrocyte sedimentation ra teOrdered By: Galina Tavarez on 10-22-2023 ESR (Bld) [Velocity] 7 mm/h 0-30 [facility] Hematocrit Auto (Bld) [Volum e fraction]Ordered By: Galina Tavarez on 10-22-2023 Hematocrit (Bld) [Volume fraction] 42.5 % 37-47 [facility] Immature granulocytes/100 WB C Auto (Bld)Ordered By: Galina Tavarez on 10-22-2023 Immature granulocytes/100 WBC (Bld) 0.600 % 0.0-0.9 [facility] Comment on above: IG% - Immature Granu locytes (promyelocytes, myelocytes and metamyelocytes) > 1% indicates that a LEFT SHIFT is Present. Laboratory - Chemistry and C hemistry - challengeOrdered By: Galina Tavarez on 10-22-2023 Albumin/Globulin [Mass ratio] 1.2 {ratio} 0.9-2.4 [facility] ALP [Catalytic activity/Vol] 63 U/L 45-117 [facility] ALT [Catalytic activity/Vol] 24 U/L 13-56 [facility] CO2 [Moles/Vol] 25.0 mmol/L 21.0-32.0 [facility] Globulin (S) [Mass/Vol] 3.4 g/dL 2.2-4.2 [facility] Urea nitrogen/Creatinine [Mass ratio] 21.4 mg/mg 10-20 [facility] - Hematology and Cell countsOrdered By: Galina Tavarez on 10-22-2023 MCH (RBC) [Entitic mass] 29.6 pg 27.0-32.0 [facility] MCHC (RBC) [Mass/Vol] 32.0 g/dL 32-36 [facility] Nucleated RBC/100 WBC (Bld) [Ratio] 0 % 0-5 [facility] Platelet mean volume (Bld) [Entitic vol] 10.4 fL 6.2-12.0 [facility] Platelets (Bld) [#/Vol] 293 10*3/uL 150-450 [facility] No Panel InformationOrdered By: Galina Tavarez on 10-22-2023 C-Reactive Protein Extended Range 6.53 mg/L 0.0-3.0 [facility] Comment on above: C-Reactive Protein ( CRP) provides useful information for thediagnosis, therapy and monitoring of inflammatory processesand associated diseases. For the evaluation of Relative Riskfor Cardiovascular Disease, a High Sensitivity CRP (HSCRP)should be ordered. Estimated GFR (MDRD) Amer 85 mL/min >60 [facility] Comment on above: GFR Calc Estimated GFR (MDRD) Non-Af Amer 71 mL/min >60 [facility] Comment on above: Non- GFR Calc RBC Auto (Bld) [#/Vol]Ordere d By: Galina Tavarez on 10-22-2023 RBC (Bld) [#/Vol] 4.60 10*6/uL 4.2-5.4 [facility] Serum or plasma calcium missy urement (mass/volume)Ordered By: Galina Tavarez on 10-22-2023 Calcium [Mass/Vol] 9.2 mg/dL 8.5-10.1 [facility] Serum or plasma creatinine m easurement (mass/volume)Ordered By: Galina Tavarez on 10-22-2023 Creatinine [Mass/Vol] 0.84 mg/dL 0.55-1.02 [facility] Comment on above: The validity of the calculated GFR & GFRAA in patients over 70 years has not been determined. Clinical correlation is essential. Serum or plasma urea nitroge n measurement (mass/volume)Ordered By: Galina Tavarez on 10-22-2023 Urea nitrogen [Mass/Vol] 18 mg/dL 7-18 [facility] Thin prep Papanicolaou smear with manual screeningOrdered By: Galina Tavarez on 10-22-2023 Thin prep Papanicolaou smear with manual screening 4.0 g/dL 3.2-5.0 [facility] Thin prep Papanicolaou smear with manual screening 20 U/L 15-37 [facility] Thin prep Papanicolaou smear with manual screening 7 5-15 [facility] Thin prep Papanicolaou smear with manual screeningOrdered By: Bakari Matthews on 10-16-2023 Thin prep Papanicolaou smear with manual screening 262 mg/dL 74-106 [facility] Comment on above: MANAGEMENT OF PATIEN T CARE PER NURSING PROTOCOL Absolute lymphocyte countOrd ered By: Surjit Good on 10-15-2023 Lymphocytes Auto (Unsp spec) [#/Vol] 0.97 10*3/uL 0.83-4.51 [facility] Automated lymphocyte count a s percentage of total leukocytesOrdered By: Surjit Good on 10-15-2023 Lymphocytes/100 WBC Auto (Unsp spec) 6.5 % 19-41 [facility] Basophil percentageOrdered B y: Surjit Good on 10-15-2023 Basophils/100 WBC (Bld) 0.4 % 0-1 [facility] Eosinophils/100 WBC (Bld) 1.2 % 0-5 [facility] Hemoglobin (Bld) [Mass/Vol] 12.9 g/dL 12.0-15.0 [facility] Monocytes/100 WBC (Bld) 5.7 % 0-10 [facility] Neutrophils (Bld) [#/Vol] 12.8 10*3/uL 2.0-7.7 [facility] Neutrophils/100 WBC (Bld) 85.4 % 47-70 [facility] WBC (Bld) [#/Vol] 15.0 10*3/uL 4.4-11.0 [facility] Determination of erythrocyte mean corpuscular volume (MCV)Ordered By: Surjit Good on 10-15-2023 MCV (RBC) [Entitic vol] 92.5 fL 81-99 [facility] Erythrocyte distribution wid th ratioOrdered By: Surjit Good on 10-15-2023 Erythrocyte distribution width (RBC) [Ratio] 12.4 % 11.6-14.6 [facility] Erythrocyte distribution wid th standard deviationOrdered By: Surjit Good on 10-15-2023 Erythrocyte distribution width (RBC) [Entitic vol] 42.5 fL 35.1-43.9 [facility] Erythrocyte sedimentation ra teOrdered By: Surjit Good on 10-15-2023 ESR (Bld) [Velocity] 7 mm/h 0-30 [facility] Hematocrit Auto (Bld) [Volum e fraction]Ordered By: Surjit Good on 10-15-2023 Hematocrit (Bld) [Volume fraction] 39.6 % 37-47 [facility] Immature granulocytes/100 WB C Auto (Bld)Ordered By: Surjit Good on 10-15-2023 Immature granulocytes/100 WBC (Bld) 0.800 % 0.0-0.9 [facility] Comment on above: IG% - Immature Granu locytes (promyelocytes, myelocytes and metamyelocytes) > 1% indicates that a LEFT SHIFT is Present. Laboratory - Hematology and Cell countsOrdered By: Surjit Good on 10-15-2023 MCH (RBC) [Entitic mass] 30.1 pg 27.0-32.0 [facility] MCHC (RBC) [Mass/Vol] 32.6 g/dL 32-36 [facility] Nucleated RBC/100 WBC (Bld) [Ratio] 0 % 0-5 [facility] Platelet mean volume (Bld) [Entitic vol] 10.6 fL 6.2-12.0 [facility] Platelets (Bld) [#/Vol] 247 10*3/uL 150-450 [facility] No Panel InformationOrdered By: Surjit Good on 10-15-2023 C-Reactive Protein Extended Range 22.50 mg/L 0.0-3.0 [facility] Comment on above: C-Reactive Protein ( CRP) provides useful information for thediagnosis, therapy and monitoring of inflammatory processesand associated diseases. For the evaluation of Relative Riskfor Cardiovascular Disease, a High Sensitivity CRP (HSCRP)should be ordered. RBC Auto (Bld) [#/Vol]Ordere d By: Surjit Good on 10-15-2023 RBC (Bld) [#/Vol] 4.28 10*6/uL 4.2-5.4 [facility] Absolute lymphocyte countOrd ered By: Surjit Good on 09-28-2023 Lymphocytes Auto (Unsp spec) [#/Vol] 0.99 10*3/uL 0.83-4.51 [facility] Atypical perinuclear antineu trophil cytoplasmic antibodies measurementOrdered By: Surjit Good on 09-28-2023 Neutrophil cytoplasmic Ab.perinuclear.atypical IF (S) [Titer] <1:20 titer Neg:<1:20 [facility] Comment on above: The atypical pANCA p attern has been observed in asignificant percentage of patients with ulcerative colitis,primary sclerosing cholangitis and autoimmune hepatitis.Performed at: [facility] [id number] Director: Scott Atkins PhD, Phone: [phone] Automated lymphocyte count a s percentage of total leukocytesOrdered By: Surjit Good on 09-28-2023 Lymphocytes/100 WBC Auto (Unsp spec) 7.2 % 19-41 [facility] Basophil percentageOrdered B y: Surjit Good on 09-28-2023 Basophils/100 WBC (Bld) 0.4 % 0-1 [facility] Bilirubin [Mass/Vol] 0.60 mg/dL 0.20-1.00 [facility] Comment on above: For patients on eltr ombopag therapy, use of Dimension [place] TBIL is not recommended. Eosinophils/100 WBC (Bld) 1.5 % 0-5 [facility] Hemoglobin (Bld) [Mass/Vol] 13.3 g/dL 12.0-15.0 [facility] Monocytes/100 WBC (Bld) 6.6 % 0-10 [facility] Neutrophils (Bld) [#/Vol] 11.6 10*3/uL 2.0-7.7 [facility] Neutrophils/100 WBC (Bld) 83.9 % 47-70 [facility] Protein [Mass/Vol] 7.0 g/dL 6.4-8.2 [facility] WBC (Bld) [#/Vol] 13.8 10*3/uL 4.4-11.0 [facility] Determination of erythrocyte mean corpuscular volume (MCV)Ordered By: Surjit Good on 09-28-2023 MCV (RBC) [Entitic vol] 93.8 fL 81-99 [facility] Direct bilirubinOrdered By: Surjit Good on 09-28-2023 Bilirubin.direct [Mass/Vol] 0.18 mg/dL 0.00-0.30 [facility] Erythrocyte distribution wid th ratioOrdered By: Surjit Good on 09-28-2023 Erythrocyte distribution width (RBC) [Ratio] 12.5 % 11.6-14.6 [facility] Erythrocyte distribution wid th standard deviationOrdered By: Surjit Good on 09-28-2023 Erythrocyte distribution width (RBC) [Entitic vol] 43.0 fL 35.1-43.9 [facility] Erythrocyte sedimentation ra teOrdered By: Surjit Good on 09-28-2023 ESR (Bld) [Velocity] 14 mm/h 0-30 [facility] Hematocrit Auto (Bld) [Volum e fraction]Ordered By: Surjit Good on 09-28-2023 Hematocrit (Bld) [Volume fraction] 40.7 % 37-47 [facility] Immature granulocytes/100 WB C Auto (Bld)Ordered By: Surjit Good on 09-28-2023 Immature granulocytes/100 WBC (Bld) 0.400 % 0.0-0.9 [facility] Comment on above: IG% - Immature Granu locytes (promyelocytes, myelocytes and metamyelocytes) > 1% indicates that a LEFT SHIFT is Present. Laboratory - Chemistry and C hemistry - challengeOrdered By: Surjit Good on 09-28-2023 ALP [Catalytic activity/Vol] 55 U/L 45-117 [facility] ALT [Catalytic activity/Vol] 33 U/L 13-56 [facility] Globulin (S) [Mass/Vol] 3.1 g/dL 2.2-4.2 [facility] Laboratory - Hematology and Cell countsOrdered By: Surjit Good on 09-28-2023 MCH (RBC) [Entitic mass] 30.6 pg 27.0-32.0 [facility] MCHC (RBC) [Mass/Vol] 32.7 g/dL 32-36 [facility] Nucleated RBC/100 WBC (Bld) [Ratio] 0 % 0-5 [facility] Platelet mean volume (Bld) [Entitic vol] 10.7 fL 6.2-12.0 [facility] Platelets (Bld) [#/Vol] 253 10*3/uL 150-450 [facility] No Panel InformationOrdered By: Surjit Good on 09-28-2023 C-Reactive Protein Extended Range 14.60 mg/L 0.0-3.0 [facility] Comment on above: C-Reactive Protein ( CRP) provides useful information for thediagnosis, therapy and monitoring of inflammatory processesand associated diseases. For the evaluation of Relative Riskfor Cardiovascular Disease, a High Sensitivity CRP (HSCRP)should be ordered. Estimated GFR (MDRD) Amer 76 mL/min >60 [facility] Comment on above: GFR Calc Estimated GFR (MDRD) Non-Af Amer 63 mL/min >60 [facility] Comment on above: Non- GFR Calc Miscellaneous Test See comment [facility] Comment on above: TEST RESULTS LIMITSA nti-ME-3 Ab (RDL) <20 Units <20 Negative: <20 Weak Positive: 20 - 30 Moderate to Strong Positive: >30 TESTING PERFORMED AT [facility]. ORIGINAL REPORT ON FILE IN LAB CONTAINS ADDITIONAL TEST SITE INFORMATION. RBC Auto (Bld) [#/Vol]Ordere d By: Surjit Good on 09-28-2023 RBC (Bld) [#/Vol] 4.34 10*6/uL 4.2-5.4 [facility] Serum classic neutrophil cyt oplasmic antibody assay (units/volume)Ordered By: Surjit Good on 09-28-2023 Neutrophil cytoplasmic Ab.classic Qn (S) <1:20 titer Neg:<1:20 [facility] Serum or plasma creatinine m easurement (mass/volume)Ordered By: Surjit Good on 09-28-2023 Creatinine [Mass/Vol] 0.93 mg/dL 0.55-1.02 [facility] Comment on above: The validity of the calculated GFR & GFRAA in patients over 70 years has not been determined. Clinical correlation is essential. Serum perinuclear neutrophil cytoplasmic antibody titer by immunofluorescenceOrdered By: Surjit Good on 09-28-2023 Neutrophil cytoplasmic Ab.perinuclear IF (S) [Titer] <1:20 titer Neg:<1:20 [facility] Comment on above: The presence of posi tive fluorescence exhibiting P-ANCA orC-ANCA patterns alone is not specific for the diagnosis ofWegener's Granulomatosis (WG) or microscopic polyangiitis.Decisions about treatment should not be based solely onANCA IFA results. The [employer] ANCA Group Consensusrecommends follow up testing of positive sera with both ME-3 and MPO-ANCA enzyme immunoassays. As many as 5% serumsamples are positive only by EIA. Ref. AM J Clin [id number];111:507-513. Thin prep Papanicolaou smear with manual screeningOrdered By: Surjit Good on 09-28-2023 Thin prep Papanicolaou smear with manual screening 3.9 g/dL 3.2-5.0 [facility] Thin prep Papanicolaou smear with manual screening 22 U/L 15-37 [facility] Basophil percentageOrdered B y: Guerita Mendez on 07-31-2023 Bilirubin [Mass/Vol] 0.40 mg/dL 0.20-1.00 [facility] Comment on above: For patients on eltr ombopag therapy, use of Dimension [place] TBIL is not recommended. Cholesterol [Mass/Vol] 108 mg/dL <200 [facility] Comment on above: <200 mg/dL Desirable 200-240 mg/dL Borderline >240 mg/dL High Risk Protein [Mass/Vol] 7.0 g/dL 6.4-8.2 [facility] Triglyceride [Mass/Vol] 205 mg/dL <199 [facility] Comment on above: The drugs N-Acetylcy steine and Metamizole may falsely depress this assay.Serum Triglycerides Reference Interval Normal <150 mg/dL Borderline high 150 - 199 mg/dL High 200 - 499 mg/dL Very High > or = 500 mg/dL Direct bilirubinOrdered By: Guerita Mendez on 07-31-2023 Bilirubin.direct [Mass/Vol] 0.09 mg/dL 0.00-0.30 [facility] Laboratory - Chemistry and C hemistry - challengeOrdered By: Guerita Mendez on 07-31-2023 ALP [Catalytic activity/Vol] 38 U/L 45-117 [facility] ALT [Catalytic activity/Vol] 32 U/L 13-56 [facility] Globulin (S) [Mass/Vol] 3.1 g/dL 2.2-4.2 [facility] Serum or plasma albumin missy urement (mass/volume)Ordered By: Guerita Mendez on 07-31-2023 Albumin [Mass/Vol] 3.9 g/dL 3.2-5.0 [facility] Serum or plasma cholesterol in HDL measurement (mass/volume)Ordered By: Guerita Mendez on 07-31-2023 Cholesterol in HDL [Mass/Vol] 35 mg/dL >40 [facility] Comment on above: The drugs N-Acetylcy steine and Metamizole may falsely depress this assay. Reference Range HDL <40 mg/dL Low HDL Cholesterol HDL >or= 60 mg/dL High HDL Cholesterol Serum or plasma cholesterol in VLDL measurement (mass/volume)Ordered By: Guerita Mendez on 07-31-2023 Cholesterol in VLDL [Mass/Vol] 41 mg/dL 5-40 [facility] Serum or plasma low density lipoprotein (LDL) cholesterol measurement (mass/volume)Ordered By: Guerita Mendez on 07-31-2023 Cholesterol in LDL [Mass/Vol] 32 mg/dL 0-130 [facility] Thin prep Papanicolaou smear with manual screeningOrdered By: Guerita Mendez on 07-31-2023 Thin prep Papanicolaou smear with manual screening 24 U/L 15-37 [facility] Absolute lymphocyte countOrd ered By: Surjit Good on 05-28-2023 Lymphocytes Auto (Unsp spec) [#/Vol] 1.13 10*3/uL 0.83-4.51 [facility] Basophil percentageOrdered B y: Surjit Good on 05-28-2023 Basophils/100 WBC (Bld) 0.9 % 0-1 [facility] Bilirubin [Mass/Vol] 0.30 mg/dL 0.20-1.00 [facility] Comment on above: For patients on eltr ombopag therapy, use of Dimension [place] TBIL is not recommended. Eosinophils/100 WBC (Bld) 5.4 % 0-5 [facility] Neutrophils (Bld) [#/Vol] 2.6 10*3/uL 2.0-7.7 [facility] Neutrophils/100 WBC (Bld) 57.6 % 47-70 [facility] Protein [Mass/Vol] 6.9 g/dL 6.4-8.2 [facility] WBC (Bld) [#/Vol] 4.6 10*3/uL 4.4-11.0 [facility] Blood erythrocytes count (nu mber/volume)Ordered By: Surjit Good on 05-28-2023 RBC (Bld) [#/Vol] 4.05 10*6/uL 4.2-5.4 [facility] Blood hemoglobin measurement (mass/volume)Ordered By: Surjit Good on 05-28-2023 Hemoglobin (Bld) [Mass/Vol] 12.5 g/dL 12.0-15.0 [facility] Blood lymphocytes/100 leukoc ytesOrdered By: Surjit Good on 05-28-2023 Lymphocytes/100 WBC (Bld) 24.6 % 19-41 [facility] Blood monocytes/100 leukocyt esOrdered By: Surjit Good on 05-28-2023 Monocytes/100 WBC (Bld) 11.1 % 0-10 [facility] Blood platelet mean volumeOr dered By: Surjit Good on 05-28-2023 Platelet mean volume (Bld) [Entitic vol] 10.2 fL 6.2-12.0 [facility] Determination of erythrocyte mean corpuscular volume (MCV)Ordered By: Surjit Good on 05-28-2023 MCV (RBC) [Entitic vol] 96.5 fL 81-99 [facility] Direct bilirubinOrdered By: Surjit Good on 05-28-2023 Bilirubin.direct [Mass/Vol] 0.11 mg/dL 0.00-0.30 [facility] Erythrocyte sedimentation ra teOrdered By: Surjit Good on 05-28-2023 ESR (Bld) [Velocity] 2 mm/h 0-30 [facility] Hematocrit Auto (Bld) [Volum e fraction]Ordered By: Surjit Good on 05-28-2023 Hematocrit (Bld) [Volume fraction] 39.1 % 37-47 [facility] Laboratory - Chemistry and C hemistry - challengeOrdered By: Surjit Good on 05-28-2023 ALP [Catalytic activity/Vol] 36 U/L 45-117 [facility] ALT [Catalytic activity/Vol] 27 U/L 13-56 [facility] Globulin (S) [Mass/Vol] 3.1 g/dL 2.2-4.2 [facility] Laboratory - Hematology and Cell countsOrdered By: Surjit Good on 05-28-2023 Erythrocyte distribution width (RBC) [Entitic vol] 49.7 fL 35.1-43.9 [facility] Erythrocyte distribution width (RBC) [Ratio] 14.1 % 11.6-14.6 [facility] Immature granulocytes/100 WBC (Bld) 0.400 % 0.0-0.9 [facility] Comment on above: IG% - Immature Granu locytes (promyelocytes, myelocytes and metamyelocytes) > 1% indicates that a LEFT SHIFT is Present. MCH (RBC) [Entitic mass] 30.9 pg 27.0-32.0 [facility] Nucleated RBC/100 W[facility] (Bld) [Ratio] 0 % 0[facility]5 [facility] [Mass/Vol]Or dered By: Surjit Good on 05-28-2023 MCHC (RBC) [Mass/Vol] 32.0 g/dL 32-36 [facility] No Panel InformationOrdered By: Surjit Good on 05-28-2023 Estimated GFR (MDRD) Amer 74 mL/min >60 [facility] Comment on above: GFR Calc Estimated GFR (MDRD) Non-Af Amer 61 mL/min >60 [facility] Comment on above: Non- GFR Calc Platelets bldOrdered By: Kaiser Good on 05-28-2023 Platelets (Bld) [#/Vol] 248 10*3/uL 150-450 [facility] Serum cyclic citrullinated p eptide IgG antibody assay (units/volume)Ordered By: Surjit Good on 05-28-2023 Cyclic citrullinated peptide IgG Qn 3 units 0-19 [facility] Comment on above: Negative <20 Weak po sitive 20 - 39 Moderate positive 40 - 59 Strong positive >59Performed at: [facility] [place] [id number] Director: Scott Atkins PhD, Phone: [phone] Serum or plasma C reactive p rotein measurement (mass/volume)Ordered By: Surjit Good on 05-28-2023 CRP [Mass/Vol] mg/L 0.0-3.0 [facility] Comment on above: C-Reactive Protein ( CRP) provides useful information for thediagnosis, therapy and monitoring of inflammatory processesand associated diseases. For the evaluation of Relative Riskfor Cardiovascular Disease, a High Sensitivity CRP (HSCRP)should be ordered. Serum or plasma albumin missy urement (mass/volume)Ordered By: Surjit Good on 05-28-2023 Albumin [Mass/Vol] 3.8 g/dL 3.2-5.0 [facility] Serum or plasma creatinine m easurement (mass/volume)Ordered By: Surjit Good on 05-28-2023 Creatinine [Mass/Vol] 0.95 mg/dL 0.55-1.02 [facility] Comment on above: The validity of the calculated GFR & GFRAA in patients over 70 years has not been determined. Clinical correlation is essential. Serum rheumatoid factor dete ctionOrdered By: Surjit Good on 05-28-2023 Rheumatoid factor Ql (S) < 10.0 IU/mL <15 [facility] Thin prep Papanicolaou smear with manual screeningOrdered By: Surjit Good on 05-28-2023 Thin prep Papanicolaou smear with manual screening 24 U/L 15-37 [facility] Basophil percentageOrdered B y: Guerita Mendez on 01-15-2023 Bilirubin [Mass/Vol] 0.40 mg/dL 0.20-1.00 [facility] Comment on above: For patients on eltr ombopag therapy, use of Dimension [place] TBIL is not recommended. Chloride [Moles/Vol] 108 mmol/L 98-107 [facility] Cholesterol [Mass/Vol] 104 mg/dL <200 [facility] Comment on above: <200 mg/dL Desirable 200-240 mg/dL Borderline >240 mg/dL High Risk Glucose [Mass/Vol] 139 mg/dL 74-106 [facility] Comment on above: Fasting Glucose resu lt greater than or equal to 126 mg/dL suggests DIABETES MELLITUS per A.D.A. criteria. Potassium [Moles/Vol] 4.2 mmol/L 3.5-5.1 [facility] Protein [Mass/Vol] 7.3 g/dL 6.4-8.2 [facility] Sodium [Moles/Vol] 139 mmol/L 136-145 [facility] Triglyceride [Mass/Vol] 144 mg/dL <199 [facility] Comment on above: The drugs N-Acetylcy steine and Metamizole may falsely depress this assay.Serum Triglycerides Reference Interval Normal <150 mg/dL Borderline high 150 - 199 mg/dL High 200 - 499 mg/dL Very High > or = 500 mg/dL Direct bilirubinOrdered By: Guerita Mendez on 01-15-2023 Bilirubin.direct [Mass/Vol] 0.14 mg/dL 0.00-0.30 [facility] Erythrocyte sedimentation ra teOrdered By: Guerita Mendez on 01-15-2023 ESR (Bld) [Velocity] 3 mm/h 0-30 [facility] Laboratory - Chemistry and C hemistry - challengeOrdered By: Guerita Mendez on 01-15-2023 ALP [Catalytic activity/Vol] 33 U/L 45-117 [facility] ALT [Catalytic activity/Vol] 48 U/L 13-56 [facility] CO2 [Moles/Vol] 24.0 mmol/L 21.0-32.0 [facility] Globulin (S) [Mass/Vol] 3.4 g/dL 2.2-4.2 [facility] Urea nitrogen/Creatinine [Mass ratio] 20.9 mg/mg 10-20 [facility] No Panel InformationOrdered By: Guerita Mendez on 01-15-2023 Urine Microalbumin/Creatinine Ratio 25.3 mg/g CRE <30 [facility] Estimated GFR (MDRD) Amer 78 mL/min >60 [facility] Comment on above: GFR Calc Estimated GFR (MDRD) Non-Af Amer 64 mL/min >60 [facility] Comment on above: Non- GFR Calc Serum or plasma C reactive p rotein measurement (mass/volume)Ordered By: Guerita Mendez on 01-15-2023 CRP [Mass/Vol] mg/L 0.0-3.0 [facility] Comment on above: C-Reactive Protein ( CRP) provides useful information for thediagnosis, therapy and monitoring of inflammatory processesand associated diseases. For the evaluation of Relative Riskfor Cardiovascular Disease, a High Sensitivity CRP (HSCRP)should be ordered. Serum or plasma albumin missy urement (mass/volume)Ordered By: Guerita Mendez on 01-15-2023 Albumin [Mass/Vol] 3.9 g/dL 3.2-5.0 [facility] Serum or plasma calcium missy urement (mass/volume)Ordered By: Guerita Mendez on 01-15-2023 Calcium [Mass/Vol] 9.6 mg/dL 8.5-10.1 [facility] Serum or plasma cholesterol in HDL measurement (mass/volume)Ordered By: Guerita Mendez on 01-15-2023 Cholesterol in HDL [Mass/Vol] 36 mg/dL >40 [facility] Comment on above: The drugs N-Acetylcy steine and Metamizole may falsely depress this assay. Reference Range HDL <40 mg/dL Low HDL Cholesterol HDL >or= 60 mg/dL High HDL Cholesterol Serum or plasma cholesterol in VLDL measurement (mass/volume)Ordered By: Guerita Mendez on 01-15-2023 Cholesterol in VLDL [Mass/Vol] 29 mg/dL 5-40 [facility] Serum or plasma creatinine m easurement (mass/volume)Ordered By: Guerita Mendez on 01-15-2023 Creatinine [Mass/Vol] 0.91 mg/dL 0.55-1.02 [facility] Comment on above: The validity of the calculated GFR & GFRAA in patients over 70 years has not been determined. Clinical correlation is essential. Serum or plasma low density lipoprotein (LDL) cholesterol measurement (mass/volume)Ordered By: Guerita Mendez on 01-15-2023 Cholesterol in LDL [Mass/Vol] 39 mg/dL 0-130 [facility] Serum or plasma urea nitroge n measurement (mass/volume)Ordered By: Guerita Mendez on 01-15-2023 Urea nitrogen [Mass/Vol] 19 mg/dL 7-18 [facility] Thin prep Papanicolaou smear with manual screeningOrdered By: Guerita Mendez on 01-15-2023 Thin prep Papanicolaou smear with manual screening 16.2 mg/L NO RANGE EST. [facility] Thin prep Papanicolaou smear with manual screening 34 U/L 15-37 [facility] Thin prep Papanicolaou smear with manual screening 7 5-15 [facility] Urine creatinine measurement (mass/volume)Ordered By: Guerita Mendez on 01-15-2023 Creatinine (U) [Mass/Vol] 64.10 mg/dL NO RANGE EST. [facility] Laboratory - Chemistry and C hemistry - challengeOrdered By: Dr. Tavarez on 12-27-2022 Free T4 [Mass/Vol] 1.13 ng/dL 0.76-1.46 [facility] No Panel InformationOrdered By: Dr. Tavarez on 12-27-2022 Free Triiodothyronine (T3) pg/dL 2.2 pg/mL 2.18-3.98 [facility] Thyroid Stimulating Hormone (TSH) 1.20 uIU/mL 0.358-3.74 [facility] Glucose Glucometer (BldC) [M ass/Vol]Ordered By: Bakari Matthews on 11-06-2022 Glucose [Mass/Vol] 127 mg/dL 74-106 [facility] Comment on above: MANAGEMENT OF PATIEN T CARE PER NURSING PROTOCOL Basophil percentageOrdered B y: Guerita Mendez on 10-16-2022 Chloride [Moles/Vol] 107 mmol/L 98-107 [facility] Glucose [Mass/Vol] 156 mg/dL 74-106 [facility] Comment on above: Fasting Glucose resu lt greater than or equal to 126 mg/dL suggests DIABETES MELLITUS per A.D.A. criteria. Potassium [Moles/Vol] 4.5 mmol/L 3.5-5.1 [facility] Sodium [Moles/Vol] 140 mmol/L 136-145 [facility] Laboratory - Chemistry and C hemistry - challengeOrdered By: Guerita Mendez on 10-16-2022 CO2 [Moles/Vol] 27.0 mmol/L 21.0-32.0 [facility] Free T4 [Mass/Vol] 1.12 ng/dL 0.76-1.46 [facility] Urea nitrogen/Creatinine [Mass ratio] 29.8 mg/mg 05-18 [facility] No Panel InformationOrdered By: Guerita Mendez on 10-16-2022 Estimated GFR (MDRD) Amer 75 mL/min >60 [facility] Comment on above: GFR Calc Estimated GFR (MDRD) Non-Af Amer 62 mL/min >60 [facility] Comment on above: Non- GFR Calc Free Triiodothyronine (T3) pg/dL 1.5 pg/mL 2.18-3.98 [facility] Thyroid Stimulating Hormone (TSH) 4.97 uIU/mL 0.358-3.74 [facility] Serum or plasma calcium missy urement (mass/volume)Ordered By: Guerita Mendez on 10-16-2022 Calcium [Mass/Vol] 9.1 mg/dL 8.5-10.1 [facility] Serum or plasma creatinine m easurement (mass/volume)Ordered By: Guerita Mendez on 10-16-2022 Creatinine [Mass/Vol] 0.94 mg/dL 0.55-1.02 [facility] Comment on above: The validity of the calculated GFR & GFRAA in patients over 70 years has not been determined. Clinical correlation is essential. Serum or plasma urea nitroge n measurement (mass/volume)Ordered By: Guerita Mendez on 10-16-2022 Urea nitrogen [Mass/Vol] 28 mg/dL 7-18 [facility] Thin prep Papanicolaou smear with manual screeningOrdered By: Guerita Mendez on 10-16-2022 Thin prep Papanicolaou smear with manual screening 6 5-15 [facility] Absolute lymphocyte countOrd ered By: Guerita Mendez on 09-19-2022 Lymphocytes Auto (Unsp spec) [#/Vol] 1.16 10*3/uL 0.83-4.51 [facility] Basophil percentageOrdered B y: Guerita Mendez on 09-19-2022 Basophils/100 WBC (Bld) 0.6 % 0-1 [facility] Chloride [Moles/Vol] 108 mmol/L 98-107 [facility] Eosinophils/100 WBC (Bld) 2.5 % 0-5 [facility] Glucose [Mass/Vol] 142 mg/dL 74-106 [facility] Comment on above: Fasting Glucose resu lt greater than or equal to 126 mg/dL suggests DIABETES MELLITUS per A.D.A. criteria. Neutrophils (Bld) [#/Vol] 6.0 10*3/uL 2.0-7.7 [facility] Neutrophils/100 WBC (Bld) 71.8 % 47-70 [facility] Potassium [Moles/Vol] 4.4 mmol/L 3.5-5.1 [facility] Comment on above: Slight Hemolysis, Re sult may be falsely increased. Sodium [Moles/Vol] 140 mmol/L 136-145 [facility] WBC (Bld) [#/Vol] 8.3 10*3/uL 4.4-11.0 [facility] Blood erythrocytes count (nu mber/volume)Ordered By: Guerita Mendez on 09-19-2022 RBC (Bld) [#/Vol] 3.93 10*6/uL 4.2-5.4 [facility] Blood hemoglobin measurement (mass/volume)Ordered By: Guerita Mendez on 09-19-2022 Hemoglobin (Bld) [Mass/Vol] 12.6 g/dL 12.0-15.0 [facility] Blood lymphocytes/100 leukoc ytesOrdered By: Guerita Mendez on 09-19-2022 Lymphocytes/100 WBC (Bld) 13.9 % 19-41 [facility] Blood monocytes/100 leukocyt esOrdered By: Guerita Mendez on 09-19-2022 Monocytes/100 WBC (Bld) 10.7 % 0-10 [facility] Blood platelet mean volumeOr dered By: Guerita Mendez on 09-19-2022 Platelet mean volume (Bld) [Entitic vol] 10.1 fL 6.2-12.0 [facility] Determination of erythrocyte mean corpuscular volume (MCV)Ordered By: Guerita Mendez on 09-19-2022 MCV (RBC) [Entitic vol] 97.2 fL 81-99 [facility] Hematocrit Auto (Bld) [Volum e fraction]Ordered By: Guerita Mendez on 09-19-2022 Hematocrit (Bld) [Volume fraction] 38.2 % 37-47 [facility] Laboratory - Chemistry and C hemistry - challengeOrdered By: Guerita Mendez on 09-19-2022 CO2 [Moles/Vol] 26.0 mmol/L 21.0-32.0 [facility] Natriuretic peptide B (Bld) [Mass/Vol] 56.4 pg/mL 0-100 [facility] Urea nitrogen/Creatinine [Mass ratio] 23.3 mg/mg 10-20 [facility] Laboratory - Hematology and Cell countsOrdered By: Guerita Mendez on 09-19-2022 Erythrocyte distribution width (RBC) [Entitic vol] 49.5 fL 35.1-43.9 [facility] Erythrocyte distribution width (RBC) [Ratio] 13.8 % 11.6-14.6 [facility] Immature granulocytes/100 WBC (Bld) 0.500 % 0.0-0.9 [facility] Comment on above: IG% - Immature Granu locytes (promyelocytes, myelocytes and metamyelocytes) > 1% indicates that a LEFT SHIFT is Present. MCH (RBC) [Entitic mass] 32.1 pg 27.0-32.0 [facility] Nucleated RBC/100 WBC (Bld) [Ratio] 0 % 0-5 [facility] MCHC Auto (RBC) [Mass/Vol]Or dered By: Guerita Mendez on 09-19-2022 MCHC (RBC) [Mass/Vol] 33.0 g/dL 32-36 [facility] No Panel InformationOrdered By: Guerita Mendez on 09-19-2022 Estimated GFR (MDRD) Amer 75 mL/min >60 [facility] Comment on above: GFR Calc Estimated GFR (MDRD) Non-Af Amer 62 mL/min >60 [facility] Comment on above: Non- GFR Calc Platelets bldOrdered By: Kaiser Mendez on 09-19-2022 Platelets (Bld) [#/Vol] 270 10*3/uL 150-450 [facility] Serum or plasma calcium missy urement (mass/volume)Ordered By: Guerita Mendez on 09-19-2022 Calcium [Mass/Vol] 9.6 mg/dL 8.5-10.1 [facility] Serum or plasma creatinine m easurement (mass/volume)Ordered By: Guerita Mendez on 09-19-2022 Creatinine [Mass/Vol] 0.94 mg/dL 0.55-1.02 [facility] Comment on above: The validity of the calculated GFR & GFRAA in patients over 70 years has not been determined. Clinical correlation is essential. Serum or plasma urea nitroge n measurement (mass/volume)Ordered By: Guerita Mendez on 09-19-2022 Urea nitrogen [Mass/Vol] 22 mg/dL 7-18 [facility] Thin prep Papanicolaou smear with manual screeningOrdered By: Guerita Mendez on 09-19-2022 Thin prep Papanicolaou smear with manual screening 6 5-15 [facility] Atypical perinuclear antineu trophil cytoplasmic antibodies measurementOrdered By: Devorah Montejo on 08-02-2022 Neutrophil cytoplasmic Ab.perinuclear.atypical IF (S) [Titer] 1:160 titer Neg:<1:20 [facility] Comment on above: The atypical pANCA p attern has been observed in asignificant percentage of patients with ulcerative colitis,primary sclerosing cholangitis and autoimmune hepatitis.Performed at: - [address] [id number] Director: Scott Atkins PhD, Phone: [phone] Laboratory - Chemistry and C hemistry - challengeOrdered By: Devorah Montejo on 08-02-2022 Free T4 [Mass/Vol] 1.22 ng/dL 0.76-1.46 [facility] No Panel InformationOrdered By: Devorah Montejo on 08-02-2022 Free Triiodothyronine (T3) pg/dL 1.8 pg/mL 2.18-3.98 [facility] Thyroid Stimulating Hormone (TSH) 5.38 uIU/mL 0.358-3.74 [facility] Serum classic neutrophil cyt oplasmic antibody assay (units/volume)Ordered By: Devorah Montejo on 08-02-2022 Neutrophil cytoplasmic Ab.classic Qn (S) <1:20 titer Neg:<1:20 [facility] Serum perinuclear neutrophil cytoplasmic antibody titer by immunofluorescenceOrdered By: Devorah Montejo on 08-02-2022 Neutrophil cytoplasmic Ab.perinuclear IF (S) [Titer] <1:20 titer Neg:<1:20 [facility] Comment on above: The presence of posi tive fluorescence exhibiting P-ANCA orC-ANCA patterns alone is not specific for the diagnosis ofWegener's Granulomatosis (WG) or microscopic polyangiitis.Decisions about treatment should not be based solely onANCA IFA results. The International ANCA Group Consensusrecommends follow up testing of positive sera with both ME-3 and MPO-ANCA enzyme immunoassays. As many as 5% serumsamples are positive only by EIA. Ref. AM J Clin Pmcxwg2215;111:507-513. Basophil percentageOrdered B y: Guerita Mendez on 07-05-2022 Bilirubin [Mass/Vol] 0.50 mg/dL 0.20-1.00 [facility] Comment on above: For patients on eltr ombopag therapy, use of Dimension [place] TBIL is not recommended. Cholesterol [Mass/Vol] 119 mg/dL <200 [facility] Comment on above: <200 mg/dL Desirable 200-240 mg/dL Borderline >240 mg/dL High Risk Protein [Mass/Vol] 7.2 g/dL 6.4-8.2 [facility] Triglyceride [Mass/Vol] 213 mg/dL <199 [facility] Comment on above: The drugs N-Acetylcy steine and Metamizole may falsely depress this assay.Serum Triglycerides Reference Interval Normal <150 mg/dL Borderline high 150 - 199 mg/dL High 200 - 499 mg/dL Very High > or = 500 mg/dL Direct bilirubinOrdered By: Guerita Mendez on 07-05-2022 Bilirubin.direct [Mass/Vol] 0.15 mg/dL 0.00-0.30 [facility] Laboratory - Chemistry and C hemistry - challengeOrdered By: Guerita Mendez on 07-05-2022 ALP [Catalytic activity/Vol] 40 U/L 45-117 [facility] ALT [Catalytic activity/Vol] 41 U/L 13-56 [facility] Globulin (S) [Mass/Vol] 2.8 g/dL 2.2-4.2 [facility] Serum or plasma albumin missy urement (mass/volume)Ordered By: Guerita Mendez on 07-05-2022 Albumin [Mass/Vol] 4.4 g/dL 3.2-5.0 [facility] Serum or plasma cholesterol in HDL measurement (mass/volume)Ordered By: Guerita Mendez on 07-05-2022 Cholesterol in HDL [Mass/Vol] 39 mg/dL >40 [facility] Comment on above: The drugs N-Acetylcy steine and Metamizole may falsely depress this assay. Reference Range HDL <40 mg/dL Low HDL Cholesterol HDL >or= 60 mg/dL High HDL Cholesterol Serum or plasma cholesterol in VLDL measurement (mass/volume)Ordered By: Guerita Mendez on 07-05-2022 Cholesterol in VLDL [Mass/Vol] 43 mg/dL 5-40 [facility] Serum or plasma low density lipoprotein (LDL) cholesterol measurement (mass/volume)Ordered By: Guerita Mendez on 07-05-2022 Cholesterol in LDL [Mass/Vol] 37 mg/dL 0-130 [facility] Thin prep Papanicolaou smear with manual screeningOrdered By: Guerita Mendez on 07-05-2022 Thin prep Papanicolaou smear with manual screening 27 U/L 15-37 [facility] Laboratory - Microbiology an d Antimicrobial susceptibilityon 06-23-2022 SARS-CoV-2 (COVID-19) RNA NICOLASA+probe Ql (Unsp spec) Detected [facility] No Panel Informationon 06-23 Influenza Types A,B Rapid (Clinic) Not detected [facility] Basophil percentageon 2021 Bilirubin [Mass/Vol] 0.40 mg/dL 0.20-1.00 [facility] Work Phone: [phone] Comment on above: For patients on eltr ombopag therapy, use of Dimension [place] TBIL is not recommended. Cholesterol [Mass/Vol] 125 mg/dL <200 [facility] Work Phone: [phone] Comment on above: <200 mg/dL Desirable 200-240 mg/dL Borderline >240 mg/dL High Risk Protein [Mass/Vol] 7.3 g/dL 6.4-8.2 [facility] Work Phone: [phone] Triglyceride [Mass/Vol] 194 mg/dL <199 [facility] Work Phone: [phone] Comment on above: The drugs N-Acetylcy steine and Metamizole may falsely depress this assay.Serum Triglycerides Reference Interval Normal <150 mg/dL Borderline high 150 - 199 mg/dL High 200 - 499 mg/dL Very High > or = 500 mg/dL Direct bilirubinon Bilirubin.direct [Mass/Vol] 0.12 mg/dL 0.00-0.30 [facility] Work Phone: [phone] Laboratory - Chemistry and C hemistry - challengeon 12-30-2021 ALP [Catalytic activity/Vol] 40 U/L 45-117 [facility] Work Phone: [phone] ALT [Catalytic activity/Vol] 44 U/L 13-56 [facility] Work Phone: [phone] Globulin (S) [Mass/Vol] 3.2 g/dL 2.2-4.2 [facility] Work Phone: [phone] Serum or plasma albumin missy urement (mass/volume)on 12-30-2021 Albumin [Mass/Vol] 4.1 g/dL 3.2-5.0 [facility] Work Phone: [phone] Serum or plasma cholesterol in HDL measurement (mass/volume)on 12-30-2021 Cholesterol in HDL [Mass/Vol] 36 mg/dL >40 [facility] Work Phone: [phone] Comment on above: The drugs N-Acetylcy steine and Metamizole may falsely depress this assay. Reference Range HDL <40 mg/dL Low HDL Cholesterol HDL >or= 60 mg/dL High HDL Cholesterol Serum or plasma cholesterol in VLDL measurement (mass/volume)on 12-30-2021 Cholesterol in VLDL [Mass/Vol] 39 mg/dL 5-40 [facility] Work Phone: Serum or plasma low density lipoprotein (LDL) cholesterol measurement (mass/volume)on 12-30-2021 Cholesterol in LDL [Mass/Vol] 50 mg/dL 0-130 [facility] Work Phone: Thin prep Papanicolaou smear with manual screeningon 12-30-2021 Thin prep Papanicolaou smear with manual screening 29 U/L 15-37 [facility] Work Phone: Laboratory - Chemistry and C hemistry - challengeon 11-21-2021 Amylase [Catalytic activity/Vol] 47 U/L 5-55 [facility] Work Phone: No Panel Informationon 11-21 Immunoglobulin E 2 IU/mL [facility] Work Phone: Comment on above: Performed at: [facility] [employer] [address] [id number] Director: Scott Atkins PhD, Phone: [phone] at: [facility] [employer] [id number] Director: John Morel MD, Phone: [phone] Immunoglobulin G4 15 mg/dL [facility] Work Phone: [phone] Serum IgG subclass 1 measure ment (mass/volume)on 11-21-2021 IgG subclass 1 (S) [Mass/Vol] 261 mg/dL [facility] Work Phone: [phone] Serum IgG subclass 2 measure ment (mass/volume)on 11-21-2021 IgG subclass 2 (S) [Mass/Vol] 124 mg/dL [facility] Work Phone: [phone] Serum IgG subclass 3 measure ment (mass/volume)on 11-21-2021 IgG subclass 3 (S) [Mass/Vol] 32 mg/dL [facility] Work Phone: [phone] Serum or plasma IgA measurem ent (mass/volume)on 11-21-2021 IgA [Mass/Vol] 99 mg/dL [facility] Work Phone: [phone] Serum or plasma IgG measurem ent (mass/volume)on 11-21-2021 IgG [Mass/Vol] Not Reportable [facility] Work Phone: [phone] IgG [Mass/Vol] 502 mg/dL [facility] Work Phone: [phone] Serum or plasma IgM measurem ent (mass/volume)on 11-21-2021 IgM [Mass/Vol] 31 mg/dL [facility] Work Phone: [phone] Atypical perinuclear antineu trophil cytoplasmic antibodies measurementon 10-31-2021 Neutrophil cytoplasmic Ab.perinuclear.atypical IF (S) [Titer] 1:40 titer Neg:<1:20 [facility] Work Phone: [phone] Comment on above: The atypical pANCA p attern has been observed in asignificant percentage of patients with ulcerative colitis,primary sclerosing cholangitis and autoimmune hepatitis. Basophil percentageon 2021 Basophil percentage < 0.2 [facility] Work Phone: [phone] Bilirubin [Mass/Vol] 0.40 mg/dL 0.20-1.00 [facility] Work Phone: [phone] Comment on above: For patients on eltr ombopag therapy, use of Dimension [place] TBIL is not recommended. Protein [Mass/Vol] 7.2 g/dL 6.4-8.2 [facility] Work Phone: [phone] Direct bilirubinon Bilirubin.direct [Mass/Vol] 0.11 mg/dL 0.00-0.30 [facility] Work Phone: [phone] Erythrocyte sedimentation ra xu 10-31-2021 ESR (Bld) [Velocity] 1 mm/h 0-30 [facility] Work Phone: [phone] INR in Blood by Coagulation assayon 10-31-2021 INR Coag (Bld) [Relative time] 0.9 {INR} [facility] Work Phone: Laboratory - Chemistry and C hemistry - challengeon 10-31-2021 ALP [Catalytic activity/Vol] 37 U/L 45-117 [facility] Work Phone: [phone] ALT [Catalytic activity/Vol] 84 U/L 13-56 [facility] Work Phone: [phone] Globulin (S) [Mass/Vol] 3.1 g/dL 2.2-4.2 [facility] Work Phone: Laboratory - Coagulationon 0 10-31-2021 PT Coag (PPP) [Time] 12.0 s 11.7-14.9 [facility] Work Phone: No Panel Informationon 10-31 Centromere B Antibody <0.2 [facility] Work Phone: [phone] Ceruloplasmin 18.3 mg/dL [facility] Work Phone: [phone] Haptoglobin 85 mg/dL [facility] Work Phone: Comment on above: Performed at: [place] [id number] Director: Scott Atkins PhD, Phone: [phone] Hepatitis A IgM Antibody Negative Negative [facility] Work Phone: [phone] Hepatitis B Core IgM Antibody Negative Negative [facility] Work Phone: [phone] Hepatitis C Antibody (EIA) <0.1 s/co ratio [facility] Work Phone: Comment on above: Negative: < 0.8 Inde terminate: 0.8 - 0.9 Positive: > 0.9 The CDC recommends that a positive HCV antibody result be followed up with a HCV Nucleic Acid Amplification test (091363).Effective November 28, 2021 Hepatitis Panel (4) will be made non-orderable. [facility] offers order code [id number] Acute Hepatitis. PMP CERTIFIED PROJECT MANAGER Antibody <0.2 AI [facility] Work Phone: Serum DNA double strand anti body assay (units/volume)on 10-31-2021 DNA double strand Ab Qn (S) 1 [IU]/mL [facility] Work Phone: Comment on above: Negative <5 Equivoca l 5 - 9 Positive >9 Serum Franci-1 antibody assay (u nits/volume)on 10-31-2021 Franci-1 extractable nuclear Ab Qn (S) <0.2 AI [facility] Work Phone: Serum Scl-70 extractable nuc lear antibody assay (units/volume)on 10-31-2021 SCL-70 extractable nuclear Ab Qn (S) <0.2 [facility] Work Phone: Serum Tan extractable nucl ear antibody detectionon 10-31-2021 Tan extractable nuclear Ab Ql (S) <0.2 [facility] Work Phone: Serum classic neutrophil cyt oplasmic antibody assay (units/volume)on 10-31-2021 Neutrophil cytoplasmic Ab.classic Qn (S) <1:20 titer Neg:<1:20 [facility] Work Phone: Serum mitochondria antibody detectionon 10-31-2021 Mitochondria Ab Ql (S) <20.0 Units [facility] Work Phone: Comment on above: Negative 0.0 - 20.0 Equivocal 20.1 - 24.9 Positive >24.9Mitochondrial (M2) Antibodies are found in 90-96% ofpatients with primary biliary cirrhosis.Performed at: [address] [id number] Director: Scott Atkins PhD, Phone: [phone] Serum or plasma C reactive p rotein measurement (mass/volume)on 10-31-2021 CRP [Mass/Vol] mg/L 0.0-3.0 [facility] Work Phone: Comment on above: C-Reactive Protein ( CRP) provides useful information for thediagnosis, therapy and monitoring of inflammatory processesand associated diseases. For the evaluation of Relative Riskfor Cardiovascular Disease, a High Sensitivity CRP (HSCRP)should be ordered. Serum or plasma actin IgG an tibody assay (units/volume)on 10-31-2021 Actin IgG Qn 3 Units [facility] Work Phone: Comment on above: Negative 0 - 19 Weak positive 20 - 30 Moderate to strong positive >30 Actin Antibodies are found in 52-85% of patients with autoimmune hepatitis or chronic active hepatitis and in 22% of patients with primary biliary cirrhosis. Serum or plasma albumin missy urement (mass/volume)on 10-31-2021 Albumin [Mass/Vol] 4.1 g/dL 3.2-5.0 [facility] Work Phone: Serum or plasma angiotensin converting enzyme measurement (enzymatic activity/volume)on 10-31-2021 Angiotensin converting enzyme [Catalytic activity/Vol] 32 U/L [facility] Work Phone: Serum or plasma ferritin monica surement (mass/volume)on 10-31-2021 Ferritin [Mass/Vol] 47 ng/mL 8-252 [facility] Work Phone: [phone] Serum or plasma hepatitis B virus surface antigen detection by immunoassayon 10-31-2021 HBV surface Ag IA Ql Negative Negative [facility] Work Phone: Serum perinuclear neutrophil cytoplasmic antibody titer by immunofluorescenceon 10-31-2021 Neutrophil cytoplasmic Ab.perinuclear IF (S) [Titer] <1:20 titer Neg:<1:20 [facility] Work Phone: Comment on above: The presence of posi tive fluorescence exhibiting P-ANCA orC-ANCA patterns alone is not specific for the diagnosis ofWegener's Granulomatosis (WG) or microscopic polyangiitis.Decisions about treatment should not be based solely onANCA IFA results. The International ANCA Group Consensusrecommends follow up testing of positive sera with both ME-3 and MPO-ANCA enzyme immunoassays. As many as 5% serumsamples are positive only by EIA. Ref. AM J Clin Hpjboc3954;111:507-513. Thin prep Papanicolaou smear with manual screeningon 10-31-2021 Thin prep Papanicolaou smear with manual screening 53 U/L 15-37 [facility] Work Phone: Thin prep Papanicolaou smear with manual screening 190 U/L 84-246 [facility] Work Phone: Absolute lymphocyte counton 10-20-2021 Lymphocytes Auto (Unsp spec) [#/Vol] 1.18 10*3/uL 0.83-4.51 [facility] Work Phone: Basophil percentageon 2021 Basophil percentage 0 SEEN /hpf [facility] Work Phone: Basophils/100 WBC (Bld) 0.9 % 0-1 [facility] Work Phone: Bilirubin [Mass/Vol] 0.40 mg/dL 0.20-1.00 [facility] Work Phone: Comment on above: For patients on eltr ombopag therapy, use of Dimension [place] TBIL is not recommended. Chloride [Moles/Vol] 108 mmol/L 98-107 [facility] Work Phone: Eosinophils/100 WBC (Bld) 2.3 % 0-5 [facility] Work Phone: Glucose [Mass/Vol] 180 mg/dL 74-106 [facility] Work Phone: Comment on above: Fasting Glucose resu lt greater than or equal to 126 mg/dL suggests DIABETES MELLITUS per A.D.A. criteria. Neutrophils (Bld) [#/Vol] 3.8 10*3/uL 2.0-7.7 [facility] Work Phone: Neutrophils/100 WBC (Bld) 65.9 % 47-70 [facility] Work Phone: Potassium [Moles/Vol] 4.0 mmol/L 3.5-5.1 [facility] Work Phone: Protein [Mass/Vol] 7.1 g/dL 6.4-8.2 [facility] Work Phone: Sodium [Moles/Vol] 139 mmol/L 136-145 [facility] Work Phone: WBC (Bld) [#/Vol] 5.8 10*3/uL 4.4-11.0 [facility] Work Phone: Bilirubin Test strip Ql (U)o n 10-20-2021 Bilirubin Ql (U) Negative Negative [facility] Work Phone: Blood erythrocytes count (nu mber/volume)on 10-20-2021 RBC (Bld) [#/Vol] 4.41 10*6/uL 4.2-5.4 [facility] Work Phone: Blood hemoglobin measurement (mass/volume)on 10-20-2021 Hemoglobin (Bld) [Mass/Vol] 14.0 g/dL 12.0-15.0 [facility] Work Phone: Blood lymphocytes/100 leukoc yteson 10-20-2021 Lymphocytes/100 WBC (Bld) 20.5 % 19-41 [facility] Work Phone: [phone] Blood monocytes/100 leukocyt eson 10-20-2021 Monocytes/100 WBC (Bld) 10.1 % 0-10 [facility] Work Phone: Blood platelet mean volumeon 10-20-2021 Platelet mean volume (Bld) [Entitic vol] 9.7 fL 6.2-12.0 [facility] Work Phone: Determination of erythrocyte mean corpuscular volume (MCV)on 10-20-2021 MCV (RBC) [Entitic vol] 91.6 fL 81-99 [facility] Work Phone: Hematocrit Auto (Bld) [Volum e fraction]on 10-20-2021 Hematocrit (Bld) [Volume fraction] 40.4 % 37-47 [facility] Work Phone: [phone] Ketones Test strip Ql (U)on 10-20-2021 Ketones Ql (U) Negative Negative [facility] Work Phone: [phone] Laboratory - Chemistry and C hemistry - challengeon 10-20-2021 ALP [Catalytic activity/Vol] 39 U/L 45-117 [facility] Work Phone: ALT [Catalytic activity/Vol] 53 U/L 13-56 [facility] Work Phone: [phone] CO2 [Moles/Vol] 25.0 mmol/L 21.0-32.0 [facility] Work Phone: [phone] Globulin (S) [Mass/Vol] 2.9 g/dL 2.2-4.2 [facility] Work Phone: [phone] Lipase [Catalytic activity/Vol] 123 U/L 73-393 [facility] Work Phone: [phone] Urea nitrogen/Creatinine [Mass ratio] 20.5 mg/mg 10-20 [facility] Work Phone: [phone] Laboratory - Hematology and Cell countson 10-20-2021 Erythrocyte distribution width (RBC) [Entitic vol] 43.6 fL 35.1-43.9 [facility] Work Phone: [phone] Erythrocyte distribution width (RBC) [Ratio] 12.9 % 11.6-14.6 [facility] Work Phone: [phone] Immature granulocytes/100 WBC (Bld) 0.300 % 0.0-0.9 [facility] Work Phone: [phone] Comment on above: IG% - Immature Granu locytes (promyelocytes, myelocytes and metamyelocytes) > 1% indicates that a LEFT SHIFT is Present. MCH (RBC) [Entitic mass] 31.7 pg 27.0-32.0 [facility] Work Phone: [phone] Nucleated RBC/100 WBC (Bld) [Ratio] 0 % 0-5 [facility] Work Phone: [phone] MCHC Auto (RBC) [Mass/Vol]on 10-20-2021 MCHC (RBC) [Mass/Vol] 34.7 g/dL 32-36 [facility] Work Phone: [phone] Mucus LM Ql (Urine sed)on Mucus Ql (Urine sed) 0 SEEN /hpf [facility] Work Phone: [phone] Nitrite Test strip Ql (U)on 10-20-2021 Nitrite Ql (U) Negative Negative [facility] Work Phone: No Panel Informationon 10-20 Estimated Creatinine Clearance Calc 44.25 ml/min [facility] Work Phone: [phone] Estimated GFR (MDRD) Amer 82 mL/min >60 [facility] Work Phone: [phone] Comment on above: GFR Calc Estimated GFR (MDRD) Non-Af Amer 68 mL/min >60 [facility] Work Phone: [phone] Comment on above: Non- GFR Calc Troponin I High Sensitivity < 3 pg/mL 3.0-54.0 [facility] Work Phone: [phone] Comment on above: Please Note: New Jacey t Units and Gender Specific Reference Ranges. For more information see Policy Stat Procedure [place] High Sensitivity Troponin (TNIH) and attachments. Platelets bldon 10-20-2021 Platelets (Bld) [#/Vol] 272 10*3/uL 150-450 [facility] Work Phone: [phone] Protein Test strip Ql (U)on 10-20-2021 Protein Ql (U) Negative Negative [facility] Work Phone: [phone] Serum or plasma albumin missy urement (mass/volume)on 10-20-2021 Albumin [Mass/Vol] 4.2 g/dL 3.2-5.0 [facility] Work Phone: [phone] Serum or plasma albumin/glob ulin mass ratioon 10-20-2021 Albumin/Globulin [Mass ratio] 1.4 {ratio} 0.9-2.4 [facility] Work Phone: [phone] Serum or plasma calcium missy urement (mass/volume)on 10-20-2021 Calcium [Mass/Vol] 9.4 mg/dL 8.5-10.1 [facility] Work Phone: [phone] Serum or plasma creatinine m easurement (mass/volume)on 10-20-2021 Creatinine [Mass/Vol] 0.88 mg/dL 0.55-1.02 [facility] Work Phone: [phone] Comment on above: The validity of the calculated GFR & GFRAA in patients over 70 years has not been determined. Clinical correlation is essential. Serum or plasma urea nitroge n measurement (mass/volume)on 10-20-2021 Urea nitrogen [Mass/Vol] 18 mg/dL 7-18 [facility] Work Phone: Squamous epithelial cells de tection in urine sediment by light microscopyon 10-20-2021 Epithelial cells.squamous LM Ql (Urine sed) 0-5 SEEN /hpf [facility] Work Phone: Thin prep Papanicolaou smear with manual screeningon 10-20-2021 Thin prep Papanicolaou smear with manual screening 37 U/L 15-37 [facility] Work Phone: Thin prep Papanicolaou smear with manual screening 6 5-15 [facility] Work Phone: Urine blood detectionon 09-28 RBC Ql (U) Negative Negative [facility] Work Phone: RBC Ql (U) 0 SEEN /hpf [facility] Work Phone: Urine clarityon 10-20-2021 Clarity (U) Sl. Cloudy Clear [facility] Work Phone: Urine color determinationon 10-20-2021 Color (U) Yellow Yellow [facility] Work Phone: Urine glucose detectionon Glucose Ql (U) Normal mg/dl Normal [facility] Work Phone: Urine leukocyte esterase det ection by dipstickon 10-20-2021 Leukocyte esterase Test strip Ql (U) 25 /ul Negative [facility] Work Phone: Urine pHon 10-20-2021 pH (U) 6.5 [pH] [facility] Work Phone: Urine sediment bacteria coun t by microscopy (number/high power field)on 10-20-2021 Bacteria LM.HPF (Urine sed) [#/Area] 0 /[HPF] None Seen [facility] Work Phone: Urine specific gravity measu rementon 03-24-2022 Specific gravity (U) [Rel density] 1.010 [facility] Work Phone: Urobilinogen Auto test strip Ql (U)on 10-20-2021 Urobilinogen Ql (U) Normal mg/dl Normal [facility] Work Phone: CNOVon 09-22-2021 CNOV Office Visit (ORTHIN ) -------- KORIN HARPER ([id number]) 1950 F Date Time Provider Department 09/22/21 7:45 AM CHRISTINA FISCHER During your visit today, we recorded the following information about you: Christina Fischer MD 09/22/2021 8:10 AM Addendum Patient: Korin Harper : 1950 Date of Surgery: 03/09/21 Procedure(s): Right hip gluteus medius repair, open (05506), with primary repair fixation (63692) Medusa's gluteus stephen/ tensor fascia pierre transfer: Right hip/ thigh transplant/ transfer multiple thigh tendons (90208) Hip greater trochanteric bursectomy (96203) Application of rehabilitation brace under anesthesia [76573] HPI: Korin Harper is a 70 year old female who presents s/p Right open abductor repair. The pain has improved since surgery. The patient denies wound healing difficulty, fevers, or chills. Walking into clinic without assistive device. DVT prophylaxis/ Analgesic Medication: See medication list Review of Systems, Past Medical History, Past Surgical History, Family History, and Social History: Reviewed and charted into [email or web address]. Allergies: Cat Scan Dye [Other], Levaquin [Levofloxacin], Niacin, Sulfa (Sulfonamide Antibiotics), and Vicodin [Hydrocodone-Acetaminoph en] Medications: Current Outpatient Medications: - glipiZIDE-metFORMIN (METAGLIP) [...] (SULFONAMIDE ANTIBIOTICS) 01/21/2009 Comments: yeast infection VICODIN (HYDROCODONE-ACETAMINOPH E*01/31/2007 9 - Itching Date Reviewed: 09/22/2021 Reviewed by: Angelica Franklin - Fully Assessed Reason for Visit: Follow Up [171] Cmt: Right Hip Primary Visit Diagnosis:Tear of right gluteus medius tendon, subsequent encounter [S76.011D] Order(s):CONSULT TO PHYSICAL THERAPY [9032] Order #: [id number]: 1 FUTURE Prescriptions as of 09/22/2021 - [...] - omeprazol (more content not included)... Normal [facility] XR HIP 3V PELV+ AP/LAT RTon 09-19-2021 [...] or articular disease in the right hip. Cable Strander: PSCB Transcribe Date/Time: Sep 20 2021 8:13A Dictated by : MIKAL NEFF MD This examination was interpreted and the report reviewed and electronically signed by: MIKAL NEFF MD on Sep 20 2021 8:14AM EST [id number] Normal [facility] Culture, urineon 08-24-2021 Bacteria identified Cx Nom (U) Escherichia coli [facility] Work Phone: CNPHannah 04-22-2021 CNPN Telephone (ORTHMN) -------- KORIN HARPER ([id number]) 1950 F Date Time Provider Department 04/22/21 [...] nurse. The patient can be reached at: [phone] Please advise and Thank you, Regards, Lien Galaviz Ext. [phone] Galina Hiutron, ABORIGINAL LIAISON OFFICER 04/22/2021 2:01 PM Signed Let pt know [...] (SULFONAMIDE ANTIBIOTICS) 01/21/2009 Comments: yeast infection VICODIN (HYDROCODONE-ACETAMINOPH E*01/31/2007 9 - Itching Date Reviewed: 04/21/2021 Reviewed [...] Encounter Status:Closed by GALINA HUITRON on 04/22/21 [facility] IANon 04-21-2021 CNOV Office Visit (ORTHIN ) -------- KORIN HARPER ([id number]) 1950 F Date Time Provider Department 04/21/21 10:30 AM CHRISTINA FISCHER During your visit today, we recorded the following information about you: Weight Height 83.9 kg 1.549 m Christina Fischer MD 04/21/2021 10:12 AM Signed Post-Op Visit Patient: Korin Harper : 1950 Date of Surgery: 03/09/2021 Procedure(s): Right hip gluteus medius repair, open (07553), with primary repair fixation (64085) Latrell's gluteus stephen/ tensor fascia pierre transfer: Right hip/ thigh transplant/ transfer multiple thigh tendons (66417) Hip greater trochanteric bursectomy (43286) Application of rehabilitation brace under anesthesia [23369] HPI: Korin Harper is a 70 year old female who presents s/p Right open abductor repair. The pain has improved since surgery. The patient denies wound healing difficulty, fevers, or chills. DVT prophylaxis/ Analgesic Medication: See medication list Review of Systems, Past Medical History, Past Surgical History, Family History, and Social History: Reviewed and charted into [employer]. Allergies: Cat Scan Dye [Other], Levaquin [Levofloxacin], Niacin, Sulfa (Sulfonamide Antibiotics), and Vicodin [Hydrocodone-Acetaminoph en] Medications: Current Outpatient Medications: - glipiZIDE-metFORMIN (METAGLIP) [...] following vitals signs: Ht 154.9 cm (5' 1) Wt 83.9 kg (185 lb) BMI 34.96 [...] plan of care. Referring Provider: CHRISTINA FISCHER [[id number]] Allergies As of Date: 04/21/2021 Noted Allergy Reaction cat scan dye [Other] 01/09/2006 5 - Intolerance Comments: passed out and numbness (IV) Patient ok if pre medicated LEVAQUIN (LEVOFLOXACIN) 01/31/2007 5 - Intolerance Comments: doesn't work NIACIN 02/17/2008 5 - Intolerance SULFA (SULFONAMIDE ANTIBIOTICS) 01/21/2009 Comments: yeast infection VICODIN (HYDROCODONE-ACETAMINOPH E*01/31/2007 9 - Itching Date Reviewed: 04/21/2021 Reviewed by: Rubia Abad Ma - Fully Assessed Reason for Visit: Post Op [174] Primary Visit Diagnosis:Tear of right gluteus medius tendon, subsequent encounter [S76.011D] Order(s):CONSULT TO PHYSICAL THERAPY [9032] Order #: [id number]: 1 FUTURE Prescriptions as of 04/21/2021 - [...] once d (more content not included)... Normal [facility] XR HIP 3V PELV+ AP/LAT RTon 04-21-2021 [...] NO ACUTE BONY ABNORMALITY OR INTERVAL CHANGE Cable Strander: YAMEL Transcribe Date/Time: Apr 21 2021 10:31A Dictated by : LACEY BLACKWOOD MD This examination was interpreted and the report reviewed and electronically signed by: LACEY BLACKWOOD MD on Apr 21 2021 10:49AM EST [id number] Normal [facility] XR Pelvis and Hip - right AP and Lateral frogon 04-21-2021 IMPRESSION: NO ACUTE BONY ABNORMALITY OR INTERVAL CHANGE Cable Strander: YAMEL Transcribe Date/Time: Apr 21 2021 10:31A Dictated [...] lower lumbar spine. DIVISION OF RADIOLOGY Provider, [facility] - 04/21/2021 * * *Final Report* * [...] NO ACUTE BONY ABNORMALITY OR INTERVAL CHANGE Cable Strander: [facility] Transcribe Date/Time: Apr 21 2021 10:31A Dictated by : LACEY BLACKWOOD MD This examination was interpreted and the report reviewed and electronically signed by: LACEY BLACKWOOD MD on Apr 21 2021 10:49AM EST [facility] Radiology Study observation (narrative) David lynne [facility] XR Pelvis and Hip - right AP and Lateral frogOrdered By: Ccf Provider on 04-21-2021 [facility] CNPNon 03-31-2021 CNPN Telephone (ORQ) -------- KORIN HARPER ([id number]) 1950 F Date Time Provider Department 03/31/21 [...] the patient. Thank you Cate Harper Ph. [phone] Thank you Cate Allergies As of Date: 03/31/2021 Noted Allergy Reaction cat scan dye [Other] 01/09/2006 5 - Intolerance Comments: passed out and numbness (IV) Patient ok if pre medicated LEVAQUIN (LEVOFLOXACIN) 01/31/2007 5 - Intolerance Comments: doesn't work NIACIN 02/17/2008 5 - Intolerance SULFA (SULFONAMIDE ANTIBIOTICS) 01/21/2009 Comments: yeast infection VICODIN (HYDROCODONE-ACETAMINOPH E*01/31/2007 9 - Itching Date Reviewed: 03/24/2021 Reviewed by: EVA Morrison - Fully Assessed Reason for Visit: Orders [681] Primary Visit Diagnosis:Status post hip surgery [Z98.890] Order(s):CONSULT TO PHYSICAL THERAPY [0997] Order #: [id number]: 1 FUTURE Prescriptions as of 03/31/2021 - [...] Encounter Status:Closed by PRADEEP CASTANEDA on 03/31/21 [facility] CNOVon 03-24-2021 CNAUGUSTIN Office Visit (RYLAN ) -------- KORIN HARPER ([id number]) 1950 F Date Time Provider Department 03/24/21 [...] with XR first Referring Provider: CHRISTINA FISCHER [[id number]] Allergies As of Date: 03/24/2021 Noted Allergy Reaction cat scan dye [Other] 01/09/2006 5 - Intolerance Comments: passed out and numbness (IV) Patient ok if pre medicated LEVAQUIN (LEVOFLOXACIN) 01/31/2007 5 - Intolerance Comments: doesn't work NIACIN 02/17/2008 5 - Intolerance SULFA (SULFONAMIDE ANTIBIOTICS) 01/21/2009 Comments: yeast infection VICODIN (HYDROCODONE-ACETAMINOPH E*01/31/2007 9 - Itching Date Reviewed: 03/24/2021 Reviewed [...] Encounter Status:Closed by GALINA HUITRON on 03/25/21 [facility] Alfredo 03-23-2021 [place] Telephone (HCSIND) -------- KORIN HARPER ([id number]) 1950 F Date Time Provider Department 03/23/21 [...] (SULFONAMIDE ANTIBIOTICS) 01/21/2009 Comments: yeast infection VICODIN (HYDROCODONE-ACETAMINOPH E*01/31/2007 9 - Itching Date Reviewed: 03/10/2021 Reviewed by: Jan Robbins RN - Fully Assessed Reason for Visit: Home [...] Encounter Status:Closed by KELLI MADRID on 03/23/21 [facility] Telephone (ORQ) -------- KORIN HARPER ([id number]) 1950 F Date Time Provider Department 03/14/21 CHRISTINA FISCHER During your visit today, we recorded the following information about you: Anisha Benson Pss 03/14/2021 12:01 PM Signed Please contact this patient to discuss home care PT DOS 03/09/21 Galina Huitron, ABORIGINAL LIAISON OFFICER 03/14/2021 12:14 PM Signed Spoke with patient [...] (SULFONAMIDE ANTIBIOTICS) 01/21/2009 Comments: yeast infection VICODIN (HYDROCODONE-ACETAMINOPH E*01/31/2007 9 - Itching Date Reviewed: 03/10/2021 Reviewed by: Jan Robbins RN - Fully Assessed Reason for Visit: Patient Question [1471] Primary Visit Diagnosis:Tear of gluteus medius tendon, subsequent encounter [S76.019D] Order(s):CONSULT TO [facility] [[id number]] Order #: [id number]: 1 Prescriptions as of 03/14/2021 - acetaminophen [...] Status:Closed by PRADEEP CASTANEDA on 03/14/21 Normal [facility] Basic Metabolic Panlon 03-10 Anion gap [Moles/Vol] 13 mmol/L Normal 9-18 [facility] Comment on above: Performed By: #### B MP, CBC ####[facility] [place], [place] [phone] Calcium [Mass/Vol] 9.3 mg/dL Normal 8.5-10.2 [facility] Comment on above: Performed By: #### B MP, CBC ####[facility] [place], [place] [phone] Chloride [Moles/Vol] 102 mmol/L Normal 97-105 [facility] Comment on above: Performed By: #### B MP, CBC ####[facility] [place], [place] [phone] CO2 [Moles/Vol] 23 mmol/L Normal 22-30 [facility] Comment on above: Performed By: #### B MP, CBC ####[address] [phone] Creatinine [Mass/Vol] 0.65 mg/dL Normal 0.58-0.96 [facility] Comment on above: Performed By: #### B MP, CBC ####[address] [phone] eGFR- Amer. >60 Normal [facility] Comment on above: Performed By: #### B MP, CBC ####[address] [phone] eGFR-All Other Races >60 Normal [facility] Comment on above: Result Comment: eGFR [...] GFR. Performed By: #### B MP, CBC ####[address] [phone] Glucose [Mass/Vol] 200 mg/dL High 74-99 [facility] Comment on above: Result Comment: The [place] Diabetes Association (ADA) provides guidance for cutoff [...] Standards of Medical Care in Diabetes 2016, [place] [employer] Association. Diabetes Care. 2016.39(Suppl 1). Performed By: #### B MP, CBC ####[place] [address] [place], [place] [phone] Potassium [Moles/Vol] 4.3 mmol/L Normal 3.7-5.1 [facility] Comment on above: Performed By: #### B MP, CBC ####[place] [address] [place] [phone] Sodium [Moles/Vol] 138 mmol/L Normal 136-144 [facility] Comment on above: Performed By: #### B MP, CBC ####[place] [address] [place], [place] [phone] Urea nitrogen [Mass/Vol] 12 mg/dL Normal 7-21 [facility] Comment on above: Performed By: #### B MP, CBC ####[place] [address] [place] [phone] CBCon 03-10-2021 Absolute nRBC <0.01 Normal <0.01 [facility] Comment on above: Performed By: #### B MP, CBC ####[place] [address] [place], [place] [phone] Erythrocyte distribution width (RBC) [Ratio] 13.1 % Normal 11.5-15.0 [facility] Comment on above: Performed By: #### B MP, CBC ####[place] [address] [place], [place] [phone] Hematocrit (Bld) [Volume fraction] 36.9 % Normal 36.0-46.0 [facility] Comment on above: Performed By: #### B MP, CBC ####[place] [address] [place] [phone] Hemoglobin (Bld) [Mass/Vol] 12.0 g/dL Normal 11.5-15.5 [facility] Comment on above: Performed By: #### B MP, CBC ####[place] [address] [place], [place] [phone] MCH 30.2 pG Normal 26.0-34.0 [facility] Comment on above: Performed By: #### B MP, CBC ####[place] [address] [place], [place] [phone] MCHC (RBC) [Mass/Vol] 32.5 g/dL Normal 30.5-36.0 [facility] Comment on above: Performed By: #### B MP, CBC ####[place] [address] [place], [place] [phone] MCV (RBC) [Entitic vol] 92.7 fL Normal 80.0-100.0 [facility] Comment on above: Performed By: #### B MP, CBC ####[place] [address] [place], [place] [phone] Platelet mean volume (Bld) [Entitic vol] 10.0 fL Normal 9.0-12.7 [facility] Comment on above: Performed By: #### B MP, CBC ####[place] [address] [place], [place] [phone] Platelets (Bld) [#/Vol] 217 10*3/uL Normal 150-400 [facility] Comment on above: Performed By: #### B MP, CBC ####[place] [address] [place], [place] [phone] RBC (Bld) [#/Vol] 3.98 10*6/uL Normal 3.90-5.20 [facility] Comment on above: Performed By: #### B MP, CBC ####[place] [address] [place], [place] [phone] WBC (Bld) [#/Vol] 10.88 10*3/uL Normal 3.70-11.00 [facility] Comment on above: Performed By: #### B MP, CBC ####[facility] [address] [place], [place] [phone] THERAPY NTon 03-10-2021 THERAPY NT HNO ID: [id number] Author: Mateo Menjivar, PT Service: Physical Therapy Author Type: Physical Therapist Type: Therapy (PT/OT/Speech/Resp) Filed: 03/10/2021 3:54 PM Note Text: Physical Therapy Evaluation SERVICE DATE: 03/10/2021 SERVICE TIME: 1450 to 1530 ROOM: [place] [address] Recommended Discharge Disposition: Home Anticipated Discharge Needs: Physical Assist at Home Physical Assist at Home for: Stairs;Self Care;Shopping;Transporta tion;Meals;Laundry;Clean ing Recommended Discharge Equipment: No equipment needs anticipated PT 6 Clicks Score: 21 Precautions/Activity Restrictions: Weight Bearing Restrictions;Brace;Fall Risk;Lines/Tubes/Drains Precaution/Activity Restriction Comments: Lateral hip precautions- no [...] Chair;Shower Chair;Wheeled Walker;Hand Held Shower;Elevated Toilet Seat;Grab Bars-Toilet;Clay Miner Prior Functional Level: Within Functional Limits Prior Functional Level Comments: 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: pt reports she was utilizing cane for [...] Blank cool indicate activity not attempted General Deviations/Observations: (able to maintain NWB) Balance: Static Sitting;Dynamic [...] able to maintain balance while turning head/trunk -HLM: 7: Walk 25 feet or more Learning/Educational Needs: Discharge Plan;Functional Activities/Mobility;Plan of Care;Precautions;Rehabil itation Techniques and Procedures;Safety Goals for Plan of [...] INTERVENTIONS: Therapy Diagnosis: Reduced mobility-other Interventions Provided: Evaluation;Therapeutic Activity (63319);Gait Training (65411) $ Evaluation-Low (19001) Billed Units: 1 unit Therapeutic Activity (04863) Treatment Minutes: 10 $ Therapeutic Activity (99940) Billed Units: 1 unit Gait Training (31724) Treatment Minutes: 15 $ Gait Training (51233) Billed Units: 1 unit Training AND education provided in: Assistive device use, Benefits of in-hospital mobility, Equipment, Expected functional level, Falls prevention, Gait pattern, reduction of deviations, Home safety, Precautions/restrictions , Role of Physical Therapy, Stair navigation, Standing balance The following therapeutic skills were used: Activity dosing, Cues for sequencing/proper technique for activity, Cuing tactile, Movement facilitation, Muscle activation facilitation, Physical assist Total Timed Code Treatment Minutes: 25 Total Treatment Time (minutes): 40 Please see discipline specific clinical documentation flowsheet for complete details for this therapy evaluation/treatment. SIGNATURE: Mateo Menjivar, (more content not included)... Normal [facility] THERAPY NT HNO ID: [id number] Author: Molly Plummer, OT/L Service: Occupational Therapy Author Type: Occupational Therapist Type: Therapy (PT/OT/Speech/Resp) Filed: 03/10/2021 3:14 PM Note Text: Occupational Therapy Evaluation SERVICE DATE: 03/10/2021 SERVICE TIME: 1417 to 1444 ROOM: [place] [address] Recommended Discharge Disposition: Home Recommended Discharge Disposition Comments: w/ family assist as needed for ADLs/IADLs Anticipated Discharge Needs: Physical Assist at Home Physical Assist at Home for: Stairs;Self Care;Shopping;Transporta tion;Meals;Laundry;Clean ing Recommended Discharge Equipment: No equipment needs anticipated OT 6 Clicks Score: 19 Precautions/Activity Restrictions: Weight Bearing Restrictions;Brace;Fall Risk;Lines/Tubes/Drains Precaution/Activity Restriction Comments: Lateral hip precautions- no [...] Edema;Pain;Impaired Self Care;Decreased Activity Tolerance;Functional Mobility Impairment Cognition/Communication Deficits Responsiveness: Alert, Awake Follows Commands: 3-step Commands Cognitive Clinical Tests and Screens: 4AT Screening 4AT Screening Assess alertness (ask patient to state their name and address): Normal (fully alert, but not agitated, throughout assessment) Ask patient: age, date of , current year, and current location: No mistakes Ask patient to tell me the months of the year backwards order, starting with June: Able to state 7+ months correctly Acute [...] Chair;Shower Chair;Wheeled Walker;Hand Held Shower;Elevated Toilet Seat;Grab Bars-Toilet;Clay Miner Prior Functional Level: Within Functional Limits 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 Normal [facility] THERAPY NT HNO ID: [id number] Author: ARACELIS Zaidi Service: Occupational Therapy Author Type: Occupational Therapist Type: Therapy (PT/OT/Speech/Resp) Filed: 03/10/2021 9:29 AM Note Text: OCCUPATIONAL THERAPY MISSED VISIT SERVICE DATE: 03/10/2021 SERVICE TIME: 924 to 924 ROOM: [place] [address] Attempted Evaluation. Patient not seen due to Eating and pt requesting for therapy to return later this morning after receiving pain medication. Will re-attempt as able and appropriate. SIGNATURE: ARACELIS Zaidi PATIENT NAME: Korin Harper DATE: March 10, 2021 TIME: 9:28 AM Normal [facility] ANES Jose 03-09-2021 ANES POST HNO ID: [id number] Author: Cassandra Dawn MD Service: Anesthesiology Author [...] 09, 2021 TIME: 4:52 PM PAGER/CONTACT #: [phone] [facility] BRIEF OP NOTon 03-09-2021 BRIEF OP NOT HNO ID: [id number] Author: Jeevan Rea MD Service: Orthopaedic Surgery Author Type: Physician Type: Brief Op Note Filed: 03/09/2021 10:58 AM Note Text: Orthopaedic Surgery BRIEF OPERATIVE NOTE LOG ID: [id number] Surgery/Procedure Date: 03/09/2021 Incision/Procedure Start Time: 8:47 AM Incision Close/Procedure End Time: 10:01 AM Surgeon(s) and Audit Lead(s): Surgeon(s) and Role: * Christina Fischer MD - Primary * Jeevan Rea MD - Resident - Assisting Physician Audit Lead: Pradeep Castaneda PA-C Procedure(s): Procedure(s) (LRB): SUTURE [...] Implant Name Type Inv. Item Serial No. Cardiac Rehabilitation Specialist Lot No. LRB Model Num No. Used ANCHOR TAPER 5.5MM SUTURE QUATTRO X UHMWPE PEEK [address] [facility] [id number] Right [id number] 1 ANCHOR TAPER 5.5MM SUTURE QUATTRO X UHMWPE PEEK 1 ROW Mildred [facility] Njuice 08333-9 Right [id number] 1 ANCHOR TAPER 5.5MM SUTURE QUATTRO X UHMWPE PEEK [address] [facility] 79634-1 Right [id number] 1 ANCHOR TAPER 5.5MM SUTURE QUATTRO X UHMWPE PEEK [address] [facility] 94871-8 Right [id number] 1 Post Operative Plan: NWB [...] 30 MED average limit outlined by the [facility] Medical Board of [place]. A prescription was thus provided that exceeds [...] page 2BONE after 5pm and weekends) Normal [facility] 03-09-2021 [facility] HNO ID: [id number] Author: Jeevan Rea MD Service: Orthopaedic Surgery [...] been followed by Dr. Christina Fischer MD, in clinic for right hip abductor deficiency. It was determined she would benefit from surgery. The procedure, its risks, benefits, and potential complications were discussed in detail with the patient prior to surgery. Understanding of all topics was conveyed by the patient, and consent was given for surgery. The patient was electively admitted to the [facility] on 03/09/2021. Surgery was scheduled and [...] with Home Health Care Other Information: No creams/gels/ointments/be tadine to wound or wound area. No additional PO antibiotics without speaking to the orthopedic team first. Discharge Activity/Weight Bearing Status: Non-weight bearing RLE x6 weeks post-operatively The patient was instructed to follow-up as directed: Future Appointments Date Time Provider Department Center 03/24/2021 10:15 AM Galina ArisEVA nuñez ORTHKAYY [facility] Ind 04/21/2021 9:45 AM XR [facility] INDEPENDENCE RGIND [facility] Ind 04/21/2021 10:30 AM [facility] Medications: Discharge Medication List as of [...] spray in (more content not included)... Normal [facility] NURSING PROGon 03-09-2021 NURSING PROG HNO ID: [id number] Author: Jaleesa De La Paz RN Service: ? Author [...] was completed by: Jaleesa De La Paz [facility] OPERATIVE NOon 03-09-2021 OPERATIVE NO HNO ID: [id number] Author: Christina Fischer MD Service: Orthopaedic Surgery Author Type: Physician Type: Operative Report Filed: 03/09/2021 10:31 AM Note Text: ORTHO OPERATIVE REPORT LOG ID: [id number] Surgery/Procedure Date: 03/09/2021 Incision/Procedure Start Time: 8:47 AM Incision Close/Procedure End Time: 10:01 AM Surgeon(s)/Proceduralist (s) and Audit Lead(s): Surgeon(s) and Role: * Christina Fischer MD - Primary * Jevean Rea MD - Resident - Assisting Physician Audit Lead: Pradeep Castaneda PA-C Pre-Op/Pre-Procedure Diagnosis: Right hip pain (M25.55) 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 Right hip trochanteric bursitis (M70.6) Obesity (BMI 39) (E66) Post-Op/Post-Procedure Diagnosis: Right hip pain (M25.55) 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 Right hip trochanteric bursitis (M70.6) Obesity (BMI 39) (E66) Procedure(s): Right hip gluteus medius repair, open (52530), with primary repair fixation (90292) Latrell's gluteus stephen/ tensor fascia pierre transfer: Right hip/ thigh transplant/ transfer multiple thigh tendons (34314) Hip greater trochanteric bursectomy (88681) Application of rehabilitation brace under anesthesia [02728] Implant: [employer] [place] Quattro X 5.5mm PEEK Suture Mildred (4 anchors placed) Anesthesia: General Indications: This [...] instrumentation was passed to me by the implementation technician, a formalized time-out occurred, which involves the [...] stephen l (more content not included)... [facility] KORIN HARPER ([id number]) 1950 F Date Time Provider Department 03/08/21 DYLAN MARSH During your visit today, we recorded the following information about you: Hattie Kauffman Ma 03/08/2021 11:29 AM Signed Patient has been holding plavix since 03/02/21. She states that her teradata architect approved. Waiting for Clearance letter from [facility]. Once received, will scan in. Hattie Kauffman Ma 03/08/2021 12:24 PM Signed Clearance letter received. Scanned into [employer]. Hattie Kauffman Ma Allergies As of Date: 03/08/2021 Noted Allergy Reaction cat scan dye [Other] 01/09/2006 5 - Intolerance Comments: passed out and numbness (IV) Patient ok if pre medicated LEVAQUIN (LEVOFLOXACIN) 01/31/2007 5 - Intolerance Comments: doesn't work NIACIN 02/17/2008 5 - Intolerance SULFA (SULFONAMIDE ANTIBIOTICS) 01/21/2009 Comments: yeast infection VICODIN (HYDROCODONE-ACETAMINOPH E*01/31/2007 9 - Itching Date Reviewed: 02/23/2021 Reviewed by: Lisa Otero APRN.LITERACY SPECIALIST - Fully Assessed Reason for Visit: medication [...] Status:Closed by HATTIE KAUFFMAN MA on 03/08/21 [facility] Alfredo 03-07-2021 CNPN Telephone (ORQ) -------- DODIEFrankKORIN ([id number]) 1950 F Date Time Provider Department 03/07/21 CHRISTINA FISCHER ORQ During your visit today, we recorded the following information about you: Categoldie Goodman Adm 03/07/2021 4:04 PM Signed Korin Harper DOS 03/09/21 Procedure: SUTURE REPAIR GLUTEUS MEDIUS Hello team, Please call Korin she has questions about her current med's to control her BP she should or shouldn't be taking prior to her DOS s is taking to control her BP. Korin Harper Ph. [phone] Thank you EVA Loving 03/07/2021 4:22 PM [...] (SULFONAMIDE ANTIBIOTICS) 01/21/2009 Comments: yeast infection VICODIN (HYDROCODONE-ACETAMINOPH E*01/31/2007 9 - Itching Date Reviewed: 02/23/2021 Reviewed by: Lisa Otero APRN.LITERACY SPECIALIST - Fully Assessed Reason for Visit: Returning [...] excess calories with ser*02/23/2021 Encounter Status:Closed by GLAINA HUITRON on 03/08/21 Normal [facility] Self Check COVIDon SARS-CoV-2 (COVID-19) RNA NICOLASA+probe Ql (Unsp spec) UPPER RESPIRATORY TRACT SWAB Normal [facility] Comment on above: Performed By: #### H CCOVD ####[facility] [id number] [place], [place] [address] [phone] SARS-CoV-2 (COVID-19) RNA NICOLASA+probe Ql (Unsp spec) Negative for COVID19 (SARS CoV2) by RT-PCR or equivalent method. Normal Negative for COVID19 (SARS CoV2) by RT-PCR or equivalent method. [facility] Comment on above: Result Comment: This test was developed and its performance characteristics determined by [facility]'s [facility] [place]. This test has been authorized by FDA under an Emergency Use Authorization (EUA). This test has been validated in accordance with the FDA's Guidance Document Policy for Diagnostics Testing in Laboratories Certified to Perform High Complexity Testing under CLIA prior to Emergency use Authorization for Coronavirus Disease 2019 during the Public Health Emergency issued on September 27, 2019. Test performed by [facility], [facility] Pathology and Laboratory Medicine [place], [facility]0 [place] [id number]. Performed By: #### H CCOVD ####[facility] [id number] [place] [address] [phone] APTTon 02-23-2021 aPTT Coag (Bld) [Time] 22.7 s Low 23.0-32.4 [facility] Comment on above: Result Comment: Unfr actionated [...] laboratory APTT reagent in use throughout the [facility]. Performed By: #### P T, PTT ####[place] [address] [address] [place], [place] [phone] CBC and Differentialon 02-23 Abs Baso 0.05 k/uL Normal <0.11 [facility] Comment on above: Performed By: #### P T, PTT ####[place] [address] [place], [place] [phone] Abs Summit 0.73 k/uL Normal <0.87 [facility] Comment on above: Performed By: #### P T, PTT ####[place] [address] [address] [place], [place] [phone] Abs Neut 3.93 k/uL Normal 1.45-7.50 [facility] Comment on above: Performed By: #### P T, PTT ####[place] [address] [address] [place], [place] [phone] Absolute nRBC <0.01 Normal <0.01 [facility] Comment on above: Performed By: #### P T, PTT ####[facility], [place] [phone] Basophils/100 WBC (Bld) 0.8 % Normal C [facility] Comment on above: Performed By: #### P T, PTT ####[place] [address] [address], [place] [phone] DTYPE Auto Diff Normal [facility] Comment on above: Performed By: #### P T, PTT ####[place] [address] [address], [place] [phone] Eosinophils (Bld) [#/Vol] 0.27 10*3/uL Normal <0.46 [facility] Comment on above: Performed By: #### P T, PTT ####[place] [address] [address], [place] [phone] Eosinophils/100 WBC (Bld) 4.3 % Normal [facility] Comment on above: Performed By: #### P T, PTT ####[place] [address] [address] [place], [place] [phone] Erythrocyte distribution width (RBC) [Ratio] 13.3 % Normal 11.5-15.0 [facility] Comment on above: Performed By: #### P T, PTT ####[place] [address] [address], [place] [phone] Hematocrit (Bld) [Volume fraction] 40.5 % Normal 36.0-46.0 [facility] Comment on above: Performed By: #### P T, PTT ####[place] [address] [address], [place] [phone] Hemoglobin (Bld) [Mass/Vol] 13.6 g/dL Normal 11.5-15.5 [facility] Comment on above: Performed By: #### P T, PTT ####[place] [address] [address], [place] [phone] Lymphocytes (Bld) [#/Vol] 1.35 10*3/uL Normal 1.00-4.00 [facility] Comment on above: Performed By: #### P T, PTT ####[place] [address] [address] [place], [place] [phone] Lymphocytes/100 WBC (Bld) 21.3 % Normal [facility] Comment on above: Performed By: #### P T, PTT ####[place] [address] [address], [place] [phone] MCH 30.5 pG Normal 26.0-34.0 [facility] Comment on above: Performed By: #### P T, PTT ####[place] [address] [address] [place], [place] [phone] MCHC (RBC) [Mass/Vol] 33.6 g/dL Normal 30.5-36.0 [facility] Comment on above: Performed By: #### P T, PTT ####[place] [address] [address], [place] [phone] MCV (RBC) [Entitic vol] 90.8 fL Normal 80.0-100.0 [facility] Comment on above: Performed By: #### P T, PTT ####[place] [address] [address], [place] [phone] Monocytes/100 WBC (Bld) 11.5 % Normal C [facility] Comment on above: Performed By: #### P T, PTT ####[place] [address] [address], [place] [phone] Neutrophils/100 WBC (Bld) 62.1 % Normal [facility] Comment on above: Performed By: #### P T, PTT ####[place] [address] [address], [place] [phone] NRBCs 0.0 /100 WBC Normal 0 [facility] Comment on above: Performed By: #### P T, PTT ####[place] [address] [address] [place], [place] [phone] Platelet mean volume (Bld) [Entitic vol] 9.8 fL Normal 9.0-12.7 [facility] Comment on above: Performed By: #### P T, PTT ####[facility] [place], [place] [phone] Platelets (Bld) [#/Vol] 235 10*3/uL Normal 150-400 [facility] Comment on above: Performed By: #### P T, PTT ####[address] [phone] RBC (Bld) [#/Vol] 4.46 10*6/uL Normal 3.90-5.20 [facility] Comment on above: Performed By: #### P T, PTT ####[facility] [place] [address] [phone] WBC (Bld) [#/Vol] 6.35 10*3/uL Normal 3.70-11.00 [facility] Comment on above: Performed By: #### P T, PTT ####[address] [place], [place] [phone] CNPHannah 02-23-2021 [place] Telephone (RAZIA) -------- KORIN HARPER ([id number]) 1950 F Date Time Provider Department 02/23/21 LISA OTERO During your visit today, we recorded the following information about you: Hattie Kauffman Ma 02/23/2021 4:43 PM Signed Request for most recent HgBA1C faxed to Dr. Tavarez at [phone] Hattie Kauffman Ma Hattie Henley Carrie Costa 02/24/2021 11:40 AM Signed Received and scanned into [employer]. Hattie L Carrie Costa Allergies As of Date: 02/23/2021 Noted Allergy Reaction cat scan dye [Other] 01/09/2006 5 - Intolerance Comments: passed out and numbness (IV) Patient ok if pre medicated LEVAQUIN (LEVOFLOXACIN) 01/31/2007 5 - Intolerance Comments: doesn't work NIACIN 02/17/2008 5 - Intolerance SULFA (SULFONAMIDE ANTIBIOTICS) 01/21/2009 Comments: yeast infection VICODIN (HYDROCODONE-ACETAMINOPH E*01/31/2007 9 - Itching Date Reviewed: 02/23/2021 Reviewed by: Lisa Otero APRN.LITERACY SPECIALIST - Fully Assessed Reason for Visit: Request Outside Medical Records [[id number]] Prescriptions as of 02/24/2021 - metFORMIN (GLUCOPHAGE) [...] by HATTIE KAUFFMAN MA on 02/24/21 Normal [facility] Comp Metabolic Panelon 02-23 Albumin [Mass/Vol] 4.7 g/dL Normal 3.9-4.9 [facility] Comment on above: Performed By: #### P T, PTT ####[facility] [place], [place] [phone] ALP [Catalytic activity/Vol] 69 U/L Normal 34-123 [facility] Comment on above: Performed By: #### P T, PTT ####[place] [address] [place], [place] [phone] ALT [Catalytic activity/Vol] 29 U/L Normal 7-38 [facility] Comment on above: Performed By: #### P T, PTT ####[address] [phone] Anion gap [Moles/Vol] 10 mmol/L Normal 9-18 [facility] Comment on above: Performed By: #### P T, PTT ####[facility] [place], [place] [phone] AST [Catalytic activity/Vol] 30 U/L Normal 13-35 [facility] Comment on above: Performed By: #### P T, PTT ####[place] [address] [address] [place], [place] [phone] Bilirubin [Mass/Vol] 0.3 mg/dL Normal 0.2-1.3 [facility] Comment on above: Performed By: #### P T, PTT ####[place] [address] [place], [place] [phone] Calcium [Mass/Vol] 10.1 mg/dL Normal 8.5-10.2 [facility] Comment on above: Performed By: #### P T, PTT ####[place] [address] [address] [place], [place] [phone] Chloride [Moles/Vol] 103 mmol/L Normal 97-105 [facility] Comment on above: Performed By: #### P T, PTT ####[place] [address] [address] [place], [place] [phone] CO2 [Moles/Vol] 22 mmol/L Normal 22-30 [facility] Comment on above: Performed By: #### P T, PTT ####[place] [address], [place] [phone] Creatinine [Mass/Vol] 0.88 mg/dL Normal 0.58-0.96 [facility] Comment on above: Performed By: #### P T, PTT ####[place] [address] [address] [place], [place] [phone] eGFR- Amer. >60 Normal [facility] Comment on above: Performed By: #### P T, PTT ####[facility] [place], [place] [phone] eGFR-All Other Races >60 Normal [facility] Comment on above: Result Comment: eGFR [...] GFR. Performed By: #### P T, PTT ####[address] [phone] Glucose [Mass/Vol] 107 mg/dL High 74-99 [facility] Comment on above: Result Comment: The [place] Diabetes Association (ADA) provides guidance for cutoff [...] Standards of Medical Care in Diabetes 2016, [place] [employer]. Diabetes Care. 2016.39(Suppl 1). Performed By: #### P T, PTT ####[facility] [place], [place] [phone] Potassium [Moles/Vol] 4.9 mmol/L Normal 3.7-5.1 [facility] Comment on above: Performed By: #### P T, PTT ####[facility] [place], [place] [phone] Protein [Mass/Vol] 6.9 g/dL Normal 6.3-8.0 [facility] Comment on above: Performed By: #### P T, PTT ####[facility] [address] [place], [place] [phone] Sodium [Moles/Vol] 135 mmol/L Low 136-144 [facility] Comment on above: Performed By: #### P T, PTT ####[facility] [address] [place], [place] [phone] Urea nitrogen [Mass/Vol] 17 mg/dL Normal 7-21 [facility] Comment on above: Performed By: #### P T, PTT ####[facility] [place], [place] [phone] Confirm Blood Typeon 021 ABO/RH(D) Negative Normal [facility] Comment on above: Performed By: #### C ONABO #### [facility] [address] [place], [place] [address] HISTORY PHYSICALon HISTORY PHYSICAL HNO ID: [id number] Author: Lisa Otero APRN.LITERACY SPECIALIST Service: ? Author Type: Nurse Practitioner Type: [...] in Adult CHIEF COMPLAINT: Pre-op exam HPI: GILMAR is a 70 yo seen for PAC [...] fevers. Neurological: No history of TIA's, stroke, COMMERCIAL LOAN MANAGER tumor, impaired sensorium, hemiplegia, paraplegia or quadraplegia. No neurological symptoms or problems. Respiratory: Positive for: obstructive sleep apnea (pending sleep study Sunday02/28/2021). Negative for: asthma, COPD, pneumonia within 6 weeks, tobacco use and URI < 2 weeks. Cardiovascular: Positive for: anticoagulation therapy, CAD, hyperlipidemia (on rx) and hypertension (on rx) Patient's last office visit with teradata architectAnup, The following tests and/or procedures were performed: cardiac stents. Negative for: arrhythmia, atrial fibrillation, chest pain, CHF, congenital heart defect and DVT/PE. GI: Positive for: GERD (on rx) Negative for: abdominal pain, difficulty swallowing, irritable bowel syndrome, inflammatory bowel disease, liver disease, nausea, vomiting and ETOH >2 drinks/day. : Positive for: urinary tract infection (frequent, on prophylatic atb, following [facility]). Negative for: urinary incontinence, nephrolithiasis and renal failure. PAPERHANGER PIPE: Negative for abnormal vaginal bleeding, abnormal vaginal discharge. Endocrine: Positive for: diabetes mellitus and hypothyroidism (on rx). Patient's diabetes mellitus is controlled by oral agents. Hematology: Positive for: chronic anti-coagulation/platele t meds. Patient is on anti-coagulation/platele t medication(s): Plavix and Aspirin. Negative for: anemia, [...] ONLY C-secti (more content not included)... Normal [facility] Protimeon 02-23-2021 PT INR 1.0 Normal 0.9-1.3 [facility] Comment on above: Result Comment: Brooke min K Antagonist (VKA) Therapeutic Range: INR 2 to 3 (Target INR of 2.5) Note: For patients treated with VKA drugs, such as warfarin, the [place] [employer] 2012 Guideline recommends [...] 2012, 141:7S-47S Maria R RA, et al. [facility] 2017, 70: 252-289 Performed By: #### P T, PTT ####[facility] [address] [place], [place] [phone] PT Sec 10.8 sec Normal 9.7-13.0 [facility] Comment on above: Performed By: #### P T, PTT ####[facility] [address] [place], [place] [phone] Type and SCR (30D)on 021 ABO/RH(D) Negative Normal [facility] Comment on above: Performed By: #### T SCR30 #### [facility] [address] [place], [place] [address] CNPNon 01-13-2021 CNPN Telephone (ORQ) -------- KORIN HARPER ([id number]) 1950 F Date Time Provider Department 01/13/21 CHRISTINA FISCHER ORJoann During your visit today, we recorded the following information about you: Cate Rex Adm 01/13/2021 8:23 AM Signed KORIN HARPER [[id number]]DOS 06/08/21 Procedure: SUTURE REPAIR GLUTEUS MEDIUS Hello team, Korin indicated that she has been cleared by her teradata architect to proceed with an earlier DOS. Call back requested to discuss a new DOS Korin Harper Ph. [phone] Thank you EVA Morrison 01/14/2021 8:55 AM Signed Left vm offering date of 01/19 and 03/09 to move her dos. Left cb for confirmation if a date works for her Cate Goodman Adm 01/14/2021 9:19 AM Signed Hi Korin Mojica called to accept the DOS of 03/09. Korin Harper Ph. [phone] Thank you Galina Huitron, ABORIGINAL LIAISON OFFICER 01/14/2021 9:21 AM Signed Case msg sent 03/09/21 Allergies As of Date: 01/13/2021 Noted Allergy Reaction cat scan dye [Other] 01/09/2006 5 - Intolerance Comments: passed out and numbness (IV) LEVAQUIN (LEVOFLOXACIN) 01/31/2007 5 - Intolerance Comments: doesn't work NIACIN 02/17/2008 5 - Intolerance SULFA (SULFONAMIDE ANTIBIOTICS) 01/21/2009 Comments: yeast infection VICODIN (HYDROCODONE-ACETAMINOPH E*01/31/2007 9 - Itching Date Reviewed: 01/03/2021 Reviewed [...] Encounter Status:Closed by GALINA HUITRON on 01/14/21 [facility] 01-12-2021 CNPN Telephone (ORQ) -------- KORIN HARPER ([id number]) 1950 F Date Time Provider Department 01/12/21 CHRISTINA FISCHER ORJoann During your visit today, we recorded the following information about you: Cate Goodman Adm 01/12/2021 11:14 AM Signed KORIN HARPER [[id number]] Korin Naylor would like some detailed information regarding the type of surgery she is to have for her local teradata architect. Call back requested for further discussion. Korinfrankie Diegofrank Ph. [phone] P.S. I did mention that normally that information is included in her surgical package she will receive from Dr. Fischer. Thank you Cate Partidaa EVA Huitron 01/12/2021 11:51 AM Signed Spoke with pt, discussed card clearance for upcoming DOS. Will mail her surgical packet to take to her teradata architect on procedure as she is trying to get sooner DOS. Will mail this week Allergies As of Date: 01/12/2021 Noted Allergy Reaction cat scan dye [Other] 01/09/2006 5 - Intolerance Comments: passed out and numbness (IV) LEVAQUIN (LEVOFLOXACIN) 01/31/2007 5 - Intolerance Comments: doesn't work NIACIN 02/17/2008 5 - Intolerance SULFA (SULFONAMIDE ANTIBIOTICS) 01/21/2009 Comments: yeast infection VICODIN (HYDROCODONE-ACETAMINOPH E*01/31/2007 9 - Itching Date Reviewed: 01/03/2021 Reviewed by: Ernie Plasencia - Fully Assessed Reason for Visit: Patient Question [[id number]] Prescriptions as of 01/12/2021 Sig: METFORMIN ER [...] Encounter Status:Closed by GALINA HUITRON on 01/12/21 [facility] 01-07-2021 [facility] Telephone (ORQ) -------- KORIN HARPER ([id number]) 1950 F Date Time Provider Department 01/07/21 CHRISTINA FISCHER ORJoann During your visit today, we recorded the following information about you: Anisha Benson Pss 01/07/2021 10:44 AM Signed Jean-Pierre team Patient is asking for a call from Dereje rep The patient need adjustments to the brace, patient spouse expressed the brace is too long. Galina or Pradeep do we have a contact for Dereje? Please advise EVA Morrison 01/07/2021 2:48 PM Signed Spoke with pt, let her know with a OS in May she cannot get card clearance this far from DOS. She had stent in May and typically the wait is one year for elective procedures after stent d/t anticoag therapies. Her teradata architect is not CCf it is [facility] I told her wee cannot get [...] (SULFONAMIDE ANTIBIOTICS) 01/21/2009 Comments: yeast infection VICODIN (HYDROCODONE-ACETAMINOPH E*01/31/2007 9 - Itching Date Reviewed: 01/03/2021 Reviewed by: Ernie Plasencia - Fully Assessed Reason for Visit: Patient Request [[id number]] Prescriptions as of 01/07/2021 Sig: METFORMIN ER [...] Encounter Status:Closed by GALINA HUITRON on 01/07/21 Normal [facility] CNOVon 01-03-2021 CNOV Office Visit (ORTHMN ) -------- KORIN HARPER ([id number]) 1950 F Date Time Provider Department 01/03/21 [...] Review of Systems: Reviewed and charted into [employer]. Physical Exam: PE reveals a female with the following v (more content not included)... Normal [facility] 01-03-2021 HOSP Patient:Korin Harper MRN: Height:5' 1(1.549 m) Weight:185 lb (83.915 kg) Outpatient Medications [...] Levaquin [Levofloxacin] Niacin Sulfa (Sulfonamide Antibiotics) Vicodin [Hydrocodone-Acetaminoph en] Date Verified: 03/09/21 Lab Values Lab Value Units Date High Low POTA* 4.9 mmol/L 02/23/2021 5.1 3.7 HENOK* 40.5 % 02/23/2021 46.0 36.0 Progress Notes (UROL [facility] W[facility]): Hattie Kauffman Ma 03/08/2021 11:29 AM Signed Patient has been holding plavix since 03/02/21. She states that her teradata architect approved. Waiting for Clearance letter from [facility]. Once received, will scan in. Hattie Kauffman Ma 03/08/2021 12:24 PM Signed Clearance letter received. Scanned into Epic. Hattie Kauffman Ma Progress Notes ([facility]): Cate Goodman Adm 03/07/2021 4:04 PM Signed Korin Harper DOS 03/09/21 Procedure: SUTURE REPAIR GLUTEUS MEDIUS Hello team, Please call Korin she has questions about her current med's to control her BP she should or shouldn't be taking prior to her DOS s is taking to control her BP. Korin Harper Ph. [phone] Thank you Cate Huitron, ABORIGINAL LIAISON OFFICER 03/07/2021 4:22 PM Signed Spoke with pt she was at PCP and card today and they asked whey she can take metoprolol moring of surgery but didn't mention to take there amlodipine, She is asking if she is to take amlodipine morning of surgery as well. Please advise Galina Huitron, EVA 03/08/2021 9:36 AM Signed Spoke with pt, let her know she can take amlodipine with morning meds DOS she then asked about her antacid, I asked that she hold that the morning of surgery. She agreed and understood. Normal [facility] XR HIP 3V PELV+ AP/LAT RTon 12-31-2020 [...] and postsurgical changes as detailed in report. Cable Strander: PSC[employer] Transcribe Date/Time: Dec 31 2020 12:35P Dictated by : JUAN REYNA MD This examination was interpreted and the report reviewed and electronically signed by: JUAN REYNA MD on Dec 31 2020 12:38PM EST [id number] Normal [facility] MRI HIP WO IVCON RTon 2020 MRI HIP WO IVCON RT * * *Final Report* * * DATE OF EXAM: Nov 02 2020 6:27PM [facility] 0207 - MRI HIP WO IVCON RT [...] FATTY REPLACEMENT. MILD RIGHT HIP DEGENERATIVE CHANGE. Cable Strander: [facility] Transcribe Date/Time: Nov 02 2020 6:35P Dictated by : JEEVAN LERNER MD This examination was interpreted and the report reviewed and electronically signed by: JEEVAN LERNER MD on Nov 02 2020 6:44PM EST [id number] Normal [facility] Lab Report: Basic Metabolic Profile (BMP)on 08-31-2017 Anion gap 8 mmol/L Invalid Interpretation Code 5-15 [employer] Work Phone: [phone] BUN/Creatinine Ratio 21.7 RATIO High 10-20 [facility] [employer] Work Phone: [phone] Calcium 8.7 mg/dL Invalid Interpretation Code 8.5-10.1 [employer] Work Phone: [phone] Chloride 107 mmol/L Invalid Interpretation Code 98-107 [employer] Work Phone: [phone] CO2 26.0 mmol/L Invalid Interpretation Code 21.0-32.0 [employer] Work Phone: [phone] Creatinine 0.92 mg/dL Invalid Interpretation Code 0.55-1.02 [employer] Work Phone: [phone] eGFR (non-black) 78 mL/min/{1.73_m2} Invalid Interpretation Code >60 [employer] Work Phone: [phone] eGFR (non-black) 65 mL/min/{1.73_m2} Invalid Interpretation Code >60 [employer] Work Phone: [phone] Glucose 150 mg/dL High 74-106 [employer] Work Phone: [phone] Potassium 4.3 mmol/L Invalid Interpretation Code 3.5-5.1 [employer] Work Phone: [phone] Sodium 141 mmol/L Invalid Interpretation Code 136-145 [employer] Phone: [phone] Urea nitrogen 20 mg/dL High 7-18 [employer] Work Phone: [phone] Lab Report: CBC W/Diff, Auto matedon 08-31-2017 Basophils/100 leukocytes 0.3 % Invalid Interpretation Code 0-1 [employer] Phone: [phone] Eosinophils/100 leukocytes 2.0 % Invalid Interpretation Code 0-5 [employer] Phone: [phone] Erythrocytes (RBC) 4.43 10*6/uL Invalid Interpretation Code 4.2-5.4 [employer] Phone: [phone] Hematocrit (HCT) 41.2 % Invalid Interpretation Code 37-47 [employer] Phone: [phone] Hemoglobin (HGB) 13.6 g/dL Invalid Interpretation Code 12.0-15.0 [employer] Phone: [phone] immature granulocytes, percentage of total cells, blood 0.400 % Invalid Interpretation Code 0.0-0.9 [employer] Phone: [phone] Lymphocytes 1.55 X10 3/UL Invalid Interpretation Code 0.83-4.51 [employer] Phone: [phone] Lymphocytes/100 leukocytes 22.6 % Invalid Interpretation Code 19-41 [employer] Work Phone: [phone] MCH 30.7 pg Invalid Interpretation Code 27.0-32.0 [employer] Work Phone: [phone] MCHC 33.0 G/GL Invalid Interpretation Code 32-36 [employer] Phone: [phone] MCV 93.0 fL Invalid Interpretation Code 81-99 [employer] Phone: [phone] Monocytes/100 leukocytes 8.2 % Invalid Interpretation Code 0-10 [employer] Work Phone: [phone] neutrophil count, blood 4.6 X10 3/UL Invalid Interpretation Code 2.0-7.7 [employer] Work Phone: [phone] Neutrophils/100 leukocytes 66.5 % Invalid Interpretation Code 47-70 [employer] Phone: [phone] Platelets 213 10*3/mm3 Invalid Interpretation Code 150-450 [employer] Phone: [phone] PMV by Chiquita 10.3 fL Invalid Interpretation Code 6.2-12.0 [employer] Phone: [phone] RDW-CA 13.3 % Invalid Interpretation Code 11.6-14.6 [employer] Phone: [phone] red blood cell distribution width, size density 44.1 fL High 35.1-43.9 [employer] Phone: [phone] WBC (Leukocytes) 6.9 10*3/uL Invalid Interpretation Code 4.4-11.0 [employer] Phone: [phone] Lab Report: Troponin-Ion Troponin I ng/mL Invalid Interpretation Code <0.06 [employer] Phone: [phone] Lab Report: Lipid Profileon 05-23-2017 Cholesterol 165 mg/dL Invalid Interpretation Code 200 [employer] Work Phone: [phone] HDL Cholesterol 62 mg/dL Invalid Interpretation Code [employer] Phone: [phone] LDL Cholesterol 67 mg/dL Invalid Interpretation Code 0-130 [employer] Phone: [phone] Triglyceride 181 mg/dL Invalid Interpretation Code [employer] Phone: [phone] very low density lipoproteins 36 mg/dL Invalid Interpretation Code 5-40 [employer] Work Phone: [phone] Lab Report: Liver Profileon 05-23-2017 Alanine aminotransferase (ALT) 35 U/L Invalid Interpretation Code 12-78 [employer] Work Phone: [phone] Albumin 4.2 g/dL Invalid Interpretation Code 3.4-5.0 [employer] Work Phone: [phone] Alkaline phosphatase (ALP) 60 U/L Invalid Interpretation Code 45-117 [employer] Work Phone: [phone] Aspartate aminotransferase (AST) 19 U/L Invalid Interpretation Code 15-37 [employer] Work Phone: [phone] Bilirubin (direct) 0.08 mg/dL Invalid Interpretation Code 0.00-0.30 [employer] Work Phone: [phone] Bilirubin (total) 0.50 mg/dL Invalid Interpretation Code 0.20-1.00 [employer] Work Phone: [phone] Globulin 3.2 g/dL Invalid Interpretation Code 2.2-4.2 [employer] Work Phone: [phone] Protein 7.4 g/dL Invalid Interpretation Code 6.4-8.2 [employer] Work Phone: [phone] Office Visit: est annualon 0 03-06-2017 Documentation of current medications (procedure) Done Invalid Interpretation Code [facility] Fall risk assessment No Invalid Interpretation Code [facility] Tobacco smoking status OHIS Never Invalid Interpretation Code [facility] Tobacco smoking status [facility] Tobacco smoking status OHIS Invalid Interpretation Code [employer] [facility] [employer] Work Phone: [phone] Tobacco use [facility] Never smoker Invalid Interpretation Code [facility] Office Visiton 12-07-2016 Documentation of current medications (procedure) Done Invalid Interpretation Code [facility] [employer] Work Phone: [phone] Fall risk assessment No [facility] [employer] Work Phone: [phone] Protein mass conc Done [facility] [employer] Work Phone: [phone] Chart Maintenanceon 12-06-19 17 Left ventricular Ejection fraction 60 % Invalid Interpretation Code [employer] Work Phone: [phone] Lab Report: Lipid Profileon 11-07-2016 Cholesterol 144 mg/dL Invalid Interpretation Code 200 [employer] Work Phone: [phone] HDL Cholesterol 49 mg/dL Invalid Interpretation Code [employer] Work Phone: [phone] LDL Cholesterol 47 mg/dL Invalid Interpretation Code 0-130 [employer] Work Phone: [phone] Triglyceride 241 mg/dL High [facility] Work Phone: [phone] very low density lipoproteins 48 mg/dL High 5-40 [employer] Work Phone: [phone] Lab Report: Liver Profileon 11-07-2016 Alanine aminotransferase (ALT) 35 U/L Invalid Interpretation Code 12-78 [employer] Work Phone: [phone] Albumin 4.0 g/dL Invalid Interpretation Code 3.4-5.0 [employer] Work Phone: [phone] Alkaline phosphatase (ALP) 60 U/L Invalid Interpretation Code 45-117 [employer] Work Phone: [phone] ALP enzyme act/vol (Bld) 60 U/L 45-117 [employer] Work Phone: [phone] Aspartate aminotransferase (AST) 26 U/L Invalid Interpretation Code 15-37 [employer] Work Phone: [phone] Bilirubin (direct) 0.09 mg/dL Invalid Interpretation Code 0.00-0.30 [employer] Work Phone: [phone] Bilirubin (total) 0.60 mg/dL Invalid Interpretation Code 0.20-1.00 [employer] Work Phone: [phone] Globulin 2.7 g/dL Invalid Interpretation Code 2.3-3.5 [employer] Work Phone: [phone] Globulin mass conc (S) 2.7 g/dL 2.3-3.5 [facility] [employer] Work Phone: [phone] Protein 6.7 g/dL Invalid Interpretation Code 6.4-8.2 [employer] Work Phone: [phone] Chart Maintenanceon 10-13-19 17 Anion gap 10 mmol/L Invalid Interpretation Code [facility] Work Phone: [phone] Anion gap molar conc 10 mmol/L [facility] Work Phone: [phone] BUN/Creatinine Ratio 25.9 mg/mg Invalid Interpretation Code [facility] Work Phone: [phone] Calcium 9.0 mg/dL Invalid Interpretation Code [facility] Work Phone: [phone] Chloride 103 mmol/L Invalid Interpretation Code [facility] Work Phone: [phone] CO2 27 mmol/L Invalid Interpretation Code [facility] Work Phone: [phone] CO2 ppres (BldV) 27 mmol/L [facility] Work Phone: [phone] Creatinine 0.73 mg/dL Invalid Interpretation Code [facility] Work Phone: [phone] Glucose 105 mg/dL Invalid Interpretation Code [facility] Work Phone: [phone] Glucose mass conc 105 mg/dL Invalid Interpretation Code [facility] Work Phone: [phone] HbA1c 6.3 % Invalid Interpretation Code [facility] Work Phone: [phone] Hematocrit (HCT) 41.8 % Invalid Interpretation Code [facility] Work Phone: [phone] Hematocrit Volume Fraction (Bld) 41.8 % [facility] Work Phone: [phone] Hemoglobin (HGB) 13.8 g/dL Invalid Interpretation Code [facility] Work Phone: [phone] Platelets 203 10*3/mm3 Invalid Interpretation Code [facility] Work Phone: [phone] Platelets #/vol (Bld) 203 10*3/mm3 [facility] Work Phone: [phone] Potassium 4.2 mmol/L Invalid Interpretation Code [facility] Work Phone: [phone] Sodium 140 mmol/L Invalid Interpretation Code [facility] Work Phone: [phone] Thyroid stimulating hormone (TSH) 1.95 u[iU]/mL Invalid Interpretation Code [facility] Work Phone: [phone] Urea nitrogen 19 mg/dL High [facility] Work Phone: [phone] Office Visiton 11-08-2016 Documentation of current medications (procedure) Done Invalid Interpretation Code [employer] Work Phone: [phone] Rx Refill: eRx Request for S ynthroid 100mcg Tabon 03-06-2016 e-scripts messenger refill request [id number]`Synthroid 100mcg Tab```30 Each``TKE 1 TABLET BY MOUTH DAILY FOR THYROID IN AM```0`05/04/2015`No date sent`[facility]`[id number]`000 [id number]``LEVOTHYROXINE SODIUM 100 MCG TABLET Quantity: 30 Tablet Instructions: TKE 1 TABLET BY MOUTH DAILY FOR THYROID IN AM [employer] Work Phone: [phone] [facility]_ [id number]`Synthroid 100mcg Tab```30 Each``TKE 1 TABLET BY MOUTH DAILY FOR THYROID IN AM```0`05/04/2015`No date sent`[facility]`[id number]`000 [id number]``LEVOTHYROXINE SODIUM 100 MCG TABLET Quantity: 30 Tablet Instructions: TKE 1 TABLET BY MOUTH DAILY FOR THYROID IN AM [employer] Work Phone: [phone] Office Visit: 6 month follow upon 03-02-2016 Dietary management education, guidance, and counseling (procedure) yes Invalid Interpretation Code [employer] Work Phone: [phone] Tobacco smoking status OHIS Never [employer] Work Phone: [phone] Tobacco smoking status [facility] Never smoker [employer] Work Phone: [phone] Tobacco use [facility] Never smoker Invalid Interpretation Code [employer] Work Phone: [phone] Microbiology: Culture, Urine on 01-06-2016 CUUR Trimethoprim/Sulfame tho $ <=20 S Invalid Interpretation Code [employer] Work Phone: [phone] GE use only - for [employer] import when terms are not otherwise specified Trimethoprim/Sulfametho $ <=20 S Invalid Interpretation Code [employer] Work Phone: [phone]) Office Visit: est annualon 0 12-29-2015 Breast Mammogram screening Normal Bilateral Invalid Interpretation Code [facility] Lab Report: CRPon 07-15-2015 C reactive protein (CRP) mg/L Invalid Interpretation Code 0.0-3.0 [employer] Work Phone: [phone] Lab Report: Erythrocyte Sed Rateon 07-15-2015 Erythrocyte sedimentation rate 6 mm/h Invalid Interpretation Code 0-30 [employer] Work Phone: [phone] Lab Report: Vitamin B12on Cobalamin (Vitamin B12) mass conc 461 pg/mL Invalid Interpretation Code 911 [employer] Work Phone: [phone] vitamin b12, serum 461 pg/mL Invalid Interpretation Code 911 [employer] Work Phone: [phone] Lab Report: Basic Metabolic Profile (BMP)on 03-23-2015 eGFR (non-black) 103 mL/min/{1.73_m2} Invalid Interpretation Code >60 [employer] Work Phone: [phone] eGFR (non-black) 85 mL/min/{1.73_m2} Invalid Interpretation Code >60 [employer] Work Phone: [phone] EST GFR - AA 103 mL/min >60 [employer] Work Phone: [phone]) Lab Report: Ferritinon 03-23 Ferritin 74 ng/mL Invalid Interpretation Code 8-252 [employer] Work Phone: [phone]) Lab Report: Ironon 5 Iron 71 ug/dL Invalid Interpretation Code 50-170 [employer] Work Phone: [phone] Lab Report: T4 Free Directon 03-23-2015 Thyroxine (T4) free 1.19 ng/dL Invalid Interpretation Code 0.76-1.46 [employer] Work Phone: [phone] External Other: Preferred Me thod of Contacton 01-06-2015 methcontact secmsg Invalid Interpretation Code [employer] Work Phone: [phone] Patient's prefered method of contact secmsg Invalid Interpretation Code [employer] Work Phone: [phone]) Office Visit: MMMon 11-25-19 15 cardiac risk group C Invalid Interpretation Code [employer] Work Phone: [phone] General cardiovascular disease 10Y risk [#] Brandon.Ciera N/A Invalid Interpretation Code [employer] Work Phone: [phone] Office Visit: Initial PCP Vi siton 08-03-2014 General categories [interpretation] of Cervical or vaginal smear or scraping by Cyto stain Normal Invalid Interpretation Code [employer] Work Phone: [phone] EKG Report: [facility] ECG Obse rvationson 05-27-2014 EKG QRS axis -20 deg Invalid Interpretation Code [employer] Work Phone: [phone] electrocardiogram interpretation Sinus Rhythm - Nonspecific T-abnormality . ABNORMAL Invalid Interpretation Code [employer] Work Phone: [phone] Interpretation Sinus Rhythm - Nonspecific T-abnormality . ABNORMAL Invalid Interpretation Code [employer] Work Phone: [phone] P [place] 45 deg Invalid Interpretation Code [employer] Work Phone: [phone] P wave axis, electrocardiogram 45 deg Invalid Interpretation Code [employer] Work Phone: [phone] 00 ME Interval 128 ms Invalid Interpretation Code [employer] Work Phone: [phone] ME interval, electrocardiogram 128 ms Invalid Interpretation Code [employer] Work Phone: [phone] Pulse (Heart Rate) 65 /min Invalid Interpretation Code [employer] Work Phone: [phone] Pulse (Heart Rate) 404 ms Invalid Interpretation Code [employer] Work Phone: [phone] QRS axis, electrocardiogram -20 deg Invalid Interpretation Code [employer] Work Phone: [phone] QRS Duration 92 ms Invalid Interpretation Code [employer] Work Phone: [phone] QRS duration, electrocardiogram 92 ms Invalid Interpretation Code [employer] Work Phone: [phone] QT Interval new path ms Invalid Interpretation Code [employer] Work Phone: [phone] QT interval, electrocardiogram new path ms Invalid Interpretation Code [employer] Work Phone: [phone] T [place] -1 deg Invalid Interpretation Code [employer] Work Phone: [phone] T wave axis, electrocardiogram -1 deg Invalid Interpretation Code [facility] Work Phone: [phone] Office Visit: Initial PCP Autumn siton 04-29-2014 Breast Mammogram screening Normal Bilateral [facility] Work Phone: [phone] Clinical Lists Update: Prelo felt strip finisher 03-13-2014 Erythrocytes (RBC) 4.68 10*6/uL Invalid Interpretation Code [facility] Work Phone: [phone] MCH 30.8 pg Invalid Interpretation Code [facility] Work Phone: [phone] MCH Entitic mass (RBC) 30.8 pg [facility] Work Phone: [phone] MCHC 33.8 g/dL Invalid Interpretation Code [facility] Work Phone: [phone] MCHC mass conc (RBC) 33.8 g/dL [facility] Work Phone: [phone] MCV 91.0 fL Invalid Interpretation Code [facility] Work Phone: [phone] MCV Entitic volume (RBC) 91.0 fL [facility] Work Phone: [phone] RBC #/vol (Bld) 4.68 10*6/uL [facility] Work Phone: [phone] WBC #/vol (Bld) 7.3 10*3/uL [facility] Work Phone: [phone] WBC (Leukocytes) 7.3 10*3/uL Invalid Interpretation Code [facility] Work Phone: [phone]) Lab Report: MGon 05-30-2012 Magnesium 2.0 mg/dL Normal 1.8-2.4 [facility] Work Phone: [phone] Lab Report: PTon 05-30-2012 INR Coag RelTime (PPP) 1.0 {INR} Normal [facility] Work Phone: [phone] INR in blood by coagulation 1.0 {INR} Normal [facility] Work Phone: [phone] prothrombin time, actual/normal, ratio 12.3 SECONDS Normal 11.9-14.4 [facility] Work Phone: PTP 12.3 SECONDS Normal 11.9-14.4 [employer] Phone: [phone] Lab Report: PTTon 05-30-2012 aPTT 25.3 s Normal 24.1-36.2 [employer] Work Phone: [phone] Lab Report: T4on 08-31-2011 Thyroxine (T4) 11.1 ug/dL Normal 4.8-13.9 [employer] Phone: [phone] Lab Reporton 08-09-2011 basophils as percent of blood leukocytes, manual count 0.3 % Invalid Interpretation Code [employer] Phone: [phone] eosinophils as percent of blood leukocytes, manual count 2.5 % Invalid Interpretation Code [employer] Phone: [phone] Lymphocytes/100 leukocytes 15.9 % Invalid Interpretation Code [employer] Phone: [phone] Lymphocytes/100 WBC (Bld) 15.9 % [employer] [employer] Phone: [phone] Monocytes/100 leukocytes 7.1 % Invalid Interpretation Code [employer] Phone: [phone] Monocytes/100 WBC (Bld) 7.1 % [employer] Phone: [phone] neutrophils, band form as percent of blood leukocytes, manual count 74.2 % Invalid Interpretation Code [employer] Phone: [phone] Office Visit: Initial PCP Vi siton 09-27-2008 Colonoscopy (procedure) Colonoscopy (procedure) Invalid Interpretation Code [employer] Phone: [phone] Protein mass conc Colonoscopy (procedure) [facility] Work Phone: [phone] Vital Signs Date Time Vital Sign Value Performing Clinician Facility 05-12-2025 07:26-0400 Body mass index (BMI) [Ratio] 39.1 kg/m2 Dr. Galina Tavarez DO Work Phone: [facility] 05-12-2025 07:26-0400 Body weight 93.[address] Galina Tavarez DO Work Phone: [facility] 05-12-2025 07:26-0400 Diastolic blood pressure 85 mm[Hg] Dr. Galina Tavarez DO Work Phone: [facility] 05-12-2025 07:26-0400 Heart rate 77 /min Dr. Galina Tavarez DO Work Phone: [facility] 05-12-2025 07:26-0400 Respiratory rate 18 /min Dr. Galina Tavarez DO Work Phone: [facility] 05-12-2025 07:26-0400 SaO2% (BldA) [Mass fraction] 97 % Dr. Galina Tavarez DO Work Phone: [facility] 05-12-2025 07:26-0400 Systolic blood pressure 124 mm[Hg] Dr. Galina Tavarez DO Work Phone: [facility] 05-06-2025 10:14-0400 Body temperature 97.7 [degF] Dr. Galina Tavarez DO Work Phone: [facility] 05-06-2025 10:14-0400 Diastolic blood pressure 72 mm[Hg] Dr. Galina Tavarez DO Work Phone: [facility] 05-06-2025 10:14-0400 Heart rate 76 /min Dr. Galina Tavarez DO Work Phone: [facility] 05-06-2025 10:14-0400 Respiratory rate 14 /min Dr. Galina Tavarez DO Work Phone: [facility] 05-06-2025 10:14-0400 SaO2% (BldA) [Mass fraction] 98 % Dr. Galina Tavarez DO Work Phone: [facility] 05-06-2025 10:14-0400 Systolic blood pressure 138 mm[Hg] Dr. Galina Tavarez DO Work Phone: [facility] 11-13-2024 10:12-0400 Body height 154.[address] Galina Tavarez DO Work Phone: [facility] 11-13-2024 10:12-0400 Body mass index (BMI) [Ratio] 38.9 kg/m2 Dr. Galina Tavarez DO Work Phone: [facility] 11-13-2024 10:12-0400 Body weight 93.[address] Galina Tavarez DO Work Phone: [facility] 11-13-2024 10:12-0400 Diastolic blood pressure 81 mm[Hg] Dr. Galina Tavarez DO Work Phone: [facility] 11-13-2024 10:12-0400 Heart rate 70 /min Dr. Galina Tavarez DO Work Phone: [facility] 11-13-2024 10:12-0400 Respiratory rate 16 /min Dr. Galina Tavarez DO Work Phone: [facility] 11-13-2024 10:12-0400 Systolic blood pressure 129 mm[Hg] Dr. Galina Tavarez DO Work Phone: [facility] 11-13-2023 09:06-0400 Body height 154.[address] Galina Tavarez Work Phone: [facility] 11-13-2023 09:06-0400 Body mass index (BMI) [Ratio] 29.2 kg/m2 Dr. Galina Tavarez Work Phone: [facility] 11-13-2023 09:06-0400 Body weight 70.[address] Galina Tavarez Work Phone: [facility] 10-16-2023 17:29-0400 Body temperature 98.2 [degF] Dr. Galina Tavarez Work Phone: [facility] 10-16-2023 17:29-0400 Diastolic blood pressure 80 mm[Hg] Dr. Galina Tavarez Work Phone: [facility] 10-16-2023 17:29-0400 Heart rate 72 /min Dr. Galina Tavarez Work Phone: [facility] 10-16-2023 17:29-0400 Respiratory rate 18 /min Dr. Galina Tavarez Work Phone: [facility] 10-16-2023 17:29-0400 SaO2% (BldA) [Mass fraction] 94 % Dr. Galina Tavarez Work Phone: [facility] 10-16-2023 17:29-0400 Systolic blood pressure 115 mm[Hg] Dr. Galina Tavarez Work Phone: [facility] 10-16-2023 14:28-0400 Body height 154.[address] Galina Tavarez Work Phone: [facility] 10-16-2023 14:28-0400 Body mass index (BMI) [Ratio] 34.8 kg/m2 Dr. Galina Tavarez Work Phone: [facility] 10-16-2023 14:28-0400 Body weight 83.[address] Galina Tavarez Work Phone: [facility] 10-02-2023 09:25-0500 Body height 154.[address] Galina Tavarez Work Phone: [facility] 10-02-2023 09:25-0500 Body mass index (BMI) [Ratio] 35.1 kg/m2 Dr. Galina Tavarez Work Phone: [facility] 10-02-2023 09:25-0500 Body weight 84.[address] Galina Tavarez Work Phone: [facility] 10-02-2023 09:25-0500 Diastolic blood pressure 87 mm[Hg] Dr. Galina Tavarez Work Phone: [facility] 10-02-2023 09:25-0500 Heart rate 77 /min Dr. Galina Tavarez Work Phone: [facility] 10-02-2023 09:25-0500 Respiratory rate 18 /min Dr. Galina Tavarez Work Phone: [facility] 10-02-2023 09:25-0500 Systolic blood pressure 135 mm[Hg] Dr. Galina Tavarez Work Phone: [facility] 01-23-2023 11:22-0400 Body height 154.[address] Galina Tavarez Work Phone: [facility] 01-23-2023 11:22-0400 Body mass index (BMI) [Ratio] 34.2 kg/m2 Dr. Galina Tavarez Work Phone: [facility] 01-23-2023 11:22-0400 Body weight 82.[address] Galina Tavarez Work Phone: [facility] 01-23-2023 11:22-0400 Diastolic blood pressure 73 mm[Hg] Dr. Galina Tavarez Work Phone: [facility] 01-23-2023 11:22-0400 Heart rate 69 /min Dr. Galina Tavarez Work Phone: [facility] 01-23-2023 11:22-0400 Respiratory rate 16 /min Dr. Galina Tavarez Work Phone: [facility] 01-23-2023 11:22-0400 Systolic blood pressure 133 mm[Hg] Dr. Galina Tavarez Work Phone: [facility] 12-19-2022 14:29-0400 Body temperature 97.4 [degF] Dr. Galina Tavarez Work Phone: [facility] 12-19-2022 14:29-0400 Diastolic blood pressure 62 mm[Hg] Dr. Galina Tavarez Work Phone: [facility] 12-19-2022 14:29-0400 Heart rate 92 /min Dr. Galina Tavarez Work Phone: [facility] 12-19-2022 14:29-0400 Respiratory rate 16 /min Dr. Galina Tavarez Work Phone: [facility] 12-19-2022 14:29-0400 SaO2% (BldA) [Mass fraction] 95 % Dr. Galina Tavarez Work Phone: [facility] 12-19-2022 14:29-0400 Systolic blood pressure 138 mm[Hg] Dr. Galina Tavarez Work Phone: [facility] 11-14-2022 12:59-0400 Body height 154.[address] Galina Tavarez Work Phone: [facility] 11-14-2022 12:59-0400 Body mass index (BMI) [Ratio] 36.1 kg/m2 Dr. Galina Tavarez Work Phone: [facility] 11-14-2022 12:59-0400 Body weight 86.[address] Galina Tavarez Work Phone: [facility] 11-14-2022 12:59-0400 Diastolic blood pressure 77 mm[Hg] Dr. Galina Tavarez Work Phone: [facility] 11-14-2022 12:59-0400 Heart rate 70 /min Dr. Galina Tavarez Work Phone: [facility] 11-14-2022 12:59-0400 SaO2% (BldA) [Mass fraction] 97 % Dr. Galina Tavarez Work Phone: [facility] 11-14-2022 12:59-0400 Systolic blood pressure 124 mm[Hg] Dr. Galina Tavarez Work Phone: [facility] 11-06-2022 09:45-0400 Diastolic blood pressure 63 mm[Hg] Dr. Galina Tavarez Work Phone: [facility] 11-06-2022 09:45-0400 Respiratory rate 16 /min Dr. Galina Tavarez Work Phone: [facility] 11-06-2022 09:45-0400 SaO2% (BldA) [Mass fraction] 97 % Dr. Galina Tavarez Work Phone: [facility] 11-06-2022 09:45-0400 Systolic blood pressure 120 mm[Hg] Dr. Galina Tavarez Work Phone: [facility] 11-06-2022 09:40-0400 Heart rate 71 /min Dr. Galina Tavarez Work Phone: [facility] 11-06-2022 09:30-0400 Body temperature 97 [degF] Dr. Galina Tavarez Work Phone: [facility] 11-06-2022 08:42-0400 Body height 154.[address] Galina Tavarez Work Phone: [facility] 11-06-2022 08:42-0400 Body mass index (BMI) [Ratio] 35.9 kg/m2 Dr. Galina Tavarez Work Phone: [facility] 11-06-2022 08:42-0400 Body weight 86.[address] Galina Tavarez Work Phone: [facility] 10-24-2022 11:31-0400 Body mass index (BMI) [Ratio] 36.4 kg/m2 Dr. Galina Tavarez Work Phone: [facility] 10-24-2022 11:31-0400 Body weight 87.[address] Galina Tavarez Work Phone: [facility] 10-24-2022 11:31-0400 Diastolic blood pressure 87 mm[Hg] Dr. Galina Tavarez Work Phone: [facility] 10-24-2022 11:31-0400 Heart rate 77 /min Dr. Galina Tavarez Work Phone: [facility] 10-24-2022 11:31-0400 Respiratory rate 20 /min Dr. Galina Tavarez Work Phone: [facility] 10-24-2022 11:31-0400 SaO2% (BldA) [Mass fraction] 93 % Dr. Galina Tavarez Work Phone: [facility] 10-24-2022 11:31-0400 Systolic blood pressure 138 mm[Hg] Dr. Galina Tavarez Work Phone: [facility] 09-19-2022 08:28-0500 Body height 154.[address] Galina Tavarez Work Phone: [facility] 09-19-2022 08:28-0500 Body mass index (BMI) [Ratio] 36.6 kg/m2 Dr. Galina Tavarez Work Phone: [facility] 09-19-2022 08:28-0500 Body weight 87.[address] Galina Tavarez Work Phone: [facility] 09-19-2022 08:28-0500 Diastolic blood pressure 97 mm[Hg] Dr. Galina Tavarez Work Phone: [facility] 09-19-2022 08:28-0500 Heart rate 73 /min Dr. Galina Tavarez Work Phone: [facility] 09-19-2022 08:28-0500 Respiratory rate 20 /min Dr. Galina Tavarez Work Phone: [facility] 09-19-2022 08:28-0500 SaO2% (BldA) [Mass fraction] 97 % Dr. Galina Tavarez Work Phone: [facility] 09-19-2022 08:28-0500 Systolic blood pressure 162 mm[Hg] Dr. Galina Tavarez Work Phone: [facility] 08-02-2022 08:05-0500 Body height 154.[address] Galina Tavarez Work Phone: [facility] 08-02-2022 08:05-0500 Body mass index (BMI) [Ratio] 35.3 kg/m2 Dr. Galina Tavarez Work Phone: [facility] 08-02-2022 08:05-0500 Body weight 84.[address] Galina Tavarez Work Phone: [facility] 08-02-2022 08:05-0500 Diastolic blood pressure 82 mm[Hg] Dr. Galina Tavarez Work Phone: [facility] 08-02-2022 08:05-0500 Heart rate 83 /min Dr. Galina Tavarez Work Phone: [facility] 08-02-2022 08:05-0500 SaO2% (BldA) [Mass fraction] 97 % Dr. Galina Tavarez Work Phone: [facility] 08-02-2022 08:05-0500 Systolic blood pressure 144 mm[Hg] Dr. Galina Tavarez Work Phone: [facility] 07-10-2022 11:30-0500 Body height 154.[address] Galina Tavarez Work Phone: [facility] Work Phone: 07-10-2022 11:29-0500 Body mass index (BMI) [Ratio] 34.9 kg/m2 Dr. Galina Tavarez Work Phone: [facility] 07-10-2022 11:29-0500 Body weight 83.[address] Galina Tavarez Work Phone: [facility] 07-10-2022 11:29-0500 Diastolic blood pressure 85 mm[Hg] Dr. Galina Tavarez Work Phone: [facility] 07-10-2022 11:29-0500 Heart rate 76 /min Dr. Galina Tavarez Work Phone: [facility] 07-10-2022 11:29-0500 Respiratory rate 18 /min Dr. Galina Tavarez Work Phone: [facility] 07-10-2022 11:29-0500 SaO2% (BldA) [Mass fraction] 96 % Dr. Galina Tavarez Work Phone: [facility] 07-10-2022 11:29-0500 Systolic blood pressure 156 mm[Hg] Dr. Galina Tavarez Work Phone: [facility] 06-23-2022 14:53-0500 Body temperature 98.1 [degF] Dr. Galina Tavarez Work Phone: [facility] 06-23-2022 14:53-0500 Diastolic blood pressure 80 mm[Hg] Dr. Galina Tavarez Work Phone: [facility] 06-23-2022 14:53-0500 Heart rate 87 /min Dr. Galina Tavarez Work Phone: [facility] 06-23-2022 14:53-0500 Respiratory rate 16 /min Dr. Galina Tavarez Work Phone: [facility] 06-23-2022 14:53-0500 SaO2% (BldA) [Mass fraction] 98 % Dr. Galina Tavarez Work Phone: [facility] 06-23-2022 14:53-0500 Systolic blood pressure 144 mm[Hg] Dr. Galina Tavarez Work Phone: [facility] 06-14-2022 13:50-0500 Body mass index (BMI) [Ratio] 34.6 kg/m2 Dr. Galina Tavarez Work Phone: [facility] 06-14-2022 13:50-0500 Body weight 83.[address] Galina Tavarez Work Phone: [facility] 06-14-2022 13:50-0500 Diastolic blood pressure 74 mm[Hg] Dr. Galina Tavarez Work Phone: [facility] 06-14-2022 13:50-0500 Systolic blood pressure 122 mm[Hg] Dr. Galina Tavarez Work Phone: [facility] 02-15-2022 14:02-0400 Body height 154.[address] Galina Tavarez Work Phone: [facility] Work Phone: 02-15-2022 14:02-0400 Body mass index (BMI) [Ratio] 34.9 kg/m2 Dr. Galina Tavarez Work Phone: [facility] Work Phone: 02-15-2022 14:02-0400 Body weight 83.[address] Galina Tavarez Work Phone: [facility] Work Phone: 02-01-2022 09:46-0400 Body temperature 97 [degF] Dr. Galina Tavarez Work Phone: [facility] Work Phone: 02-01-2022 09:46-0400 Diastolic blood pressure 67 mm[Hg] Dr. Galina Tavarez Work Phone: [facility] Work Phone: 02-01-2022 09:46-0400 Heart rate 66 /min Dr. Galina Tavarez Work Phone: [facility] Work Phone: 02-01-2022 09:46-0400 Respiratory rate 16 /min Dr. Galina Tavarez Work Phone: [facility] Work Phone: 02-01-2022 09:46-0400 SaO2% (BldA) [Mass fraction] 96 % Dr. Galina Tavarez Work Phone: [facility] Work Phone: 02-01-2022 09:46-0400 Systolic blood pressure 125 mm[Hg] Dr. Galina Tavarez Work Phone: [facility] Work Phone: 02-01-2022 08:13-0400 Body mass index (BMI) [Ratio] 33.7 kg/m2 Dr. Galina Tavarez Work Phone: [facility] Work Phone: 02-01-2022 08:13-0400 Body weight [address] Galina Tavarez Work Phone: [facility] Work Phone: 01-10-2022 07:12-0400 Body weight [address] Galina Tavarez Work Phone: [facility] Work Phone: 01-10-2022 07:12-0400 Diastolic blood pressure 86 mm[Hg] Dr. Galina Tavarez Work Phone: [facility] Work Phone: 01-10-2022 07:12-0400 Heart rate 84 /min Dr. Galina Tavarez Work Phone: [facility] Work Phone: 01-10-2022 07:12-0400 Respiratory rate 16 /min Dr. Galina Tavarez Work Phone: [facility] Work Phone: 01-10-2022 07:12-0400 SaO2% (BldA) [Mass fraction] 97 % Dr. Galina Tavarez Work Phone: [facility] Work Phone: 01-10-2022 07:12-0400 Systolic blood pressure 136 mm[Hg] Dr. Galina Tavarez Work Phone: [facility] Work Phone: 12-06-2021 15:13-0400 Body height 154.[address] Galina Tavarez Work Phone: [facility] Work Phone: 12-06-2021 15:13-0400 Body mass index (BMI) [Ratio] 34.5 kg/m2 Dr. Galina Tavarez Work Phone: [facility] Work Phone: 12-06-2021 15:13-0400 Body weight [address] Galina Tavarez Work Phone: [facility] Work Phone: 12-06-2021 15:13-0400 Diastolic blood pressure 79 mm[Hg] Dr. Galina Tavarez Work Phone: [facility] Work Phone: 12-06-2021 15:13-0400 Heart rate 80 /min Dr. Galina Tavarez Work Phone: [facility] Work Phone: 12-06-2021 15:13-0400 SaO2% (BldA) [Mass fraction] 95 % Dr. Galina Tavarez Work Phone: [facility] Work Phone: 12-06-2021 15:13-0400 Systolic blood pressure 137 mm[Hg] Dr. Galina Tavarez Work Phone: [facility] Work Phone: 10-31-2021 11:19-0400 Body height 154.[address] Galina Tavarez Work Phone: [facility] Work Phone: 10-31-2021 11:19-0400 Body mass index (BMI) [Ratio] 35.1 kg/m2 Dr. Galina Tavarez Work Phone: [facility] Work Phone: 10-31-2021 11:19-0400 Body weight 84.[address] Galina Tavarez Work Phone: [facility] Work Phone: 10-31-2021 11:19-0400 Diastolic blood pressure 87 mm[Hg] Dr. Galina Tavarez Work Phone: [facility] Work Phone: 10-31-2021 11:19-0400 Heart rate 78 /min Dr. Galina Tavarez Work Phone: [facility] Work Phone: 10-31-2021 11:19-0400 SaO2% (BldA) [Mass fraction] 96 % Dr. Galina Tavarez Work Phone: [facility] Work Phone: 10-31-2021 11:19-0400 Systolic blood pressure 165 mm[Hg] Dr. Galina Tavarez Work Phone: [facility] Work Phone: 10-20-2021 12:21-0400 Diastolic blood pressure 77 mm[Hg] Dr. Galina Tavarez Work Phone: [facility] Work Phone: 10-20-2021 12:21-0400 Heart rate 72 /min Dr. Galina Tavarez Work Phone: [facility] Work Phone: 10-20-2021 12:21-0400 Systolic blood pressure 141 mm[Hg] Dr. Galnia Tavarez Work Phone: [facility] Work Phone: 10-20-2021 10:10-0400 Respiratory rate 14 /min Dr. Galina Tavarez Work Phone: [facility] Work Phone: 10-20-2021 08:47-0400 Body mass index (BMI) [Ratio] 34.7 kg/m2 Dr. Galina Tavarez Work Phone: [facility] Work Phone: 10-20-2021 08:47-0400 Body temperature 97.2 [degF] Dr. Galina Tavarez Work Phone: [facility] Work Phone: 10-20-2021 08:47-0400 Body weight 83.[address] Gailna Tavarez Work Phone: [facility] Work Phone: 10-20-2021 08:47-0400 SaO2% (BldA) [Mass fraction] 98 % Dr. Galina Tavarez Work Phone: [facility] Work Phone: 07-12-2021 09:22-0500 Body mass index (BMI) [Ratio] 35.6 kg/m2 Dr. Galina Tavarez Work Phone: [facility] Work Phone: 07-12-2021 09:22-0500 Body weight 85.[address] Galina Tavarez Work Phone: [facility] Work Phone: 07-12-2021 09:22-0500 Diastolic blood pressure 88 mm[Hg] Dr. Galina Tavarez Work Phone: [facility] Work Phone: 07-12-2021 09:22-0500 Heart rate 84 /min Dr. Galina Tavarez Work Phone: [facility] Work Phone: 07-12-2021 09:22-0500 Respiratory rate 16 /min Dr. Galina Tavarez Work Phone: [facility] Work Phone: 07-12-2021 09:22-0500 Systolic blood pressure 148 mm[Hg] Dr. Galina Tavarez Work Phone: [facility] Work Phone: 03-07-2021 14:00-0400 Body mass index (BMI) [Ratio] 36.2 kg/m2 Dr. 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 [facility] 03-06-2017 09:15-0400 Respiratory Rate 16 /min Martha Stewart 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 [facility] 03-06-2017 09:15-0400 Weight 79.92 kg Martha Stewart 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 [facility] 12-07-2016 13:25-0400 BMI (Body Mass Index) 32.5 kg/m2 [facility] Work Phone: 12-07-2016 13:25-0400 BP Diastolic 70 mm[Hg] [facility] Work Phone: 12-07-2016 13:25-0400 BP Systolic 120 mm[Hg] [facility] Work Phone: 12-07-2016 13:25-0400 Height 154.94 cm [facility] Work Phone: 12-07-2016 13:25-0400 Pulse (Heart Rate) 76 /min [facility] Work Phone: 12-07-2016 13:25-0400 Respiratory Rate 20 /min [facility] Work Phone: 12-07-2016 13:25-0400 Weight 78.02 kg [facility] Work Phone: 06-06-2016 14:54-0500 BMI (Body Mass Index) 30.61 kg/m2 Elissa Cherry RN [facility] Work Phone: 06-06-2016 14:54-0500 BP Diastolic 72 mm[Hg] Elissa Cherry RN [facility] Work Phone: 06-06-2016 14:54-0500 BP [...] 05-27-2014 16:06-0400 Heart rate 65 /min Holly [facility]ick [facility] Work Phone: 05-27-2014 16:06-0400 Heart rate 404 ms Hollymarcell Tan [facility] Work Phone: 08-29-2011 14:51-0500 Height 154.94 cm FLOR[facility]IN [facility] Work Phone: Encounters Encounter Date Encounter Type Care Provider Facility Start: 06-05-2025 ambulatory Guerita Mendez NP Facility :[facility] Start: 06-04-2025 End: 06-04-2025 ambulatory Galina Tavarez Facility:[facility] Start: 05-12-2025 End: 05-12-2025 Patient encounter procedure Guerita Mendez 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-[facility] -Laboratory Work Phone: Start: 05-12-2025 End: 05-12-[address] Galina Tavarez DO Work Phone: -[facility] Start: 05-12-2025 End: 05-12-2025 ambulatory Guerita Mendez NP Facility:[facility] Start: 05-06-2025 End: 05-06-2025 Patient encounter procedure Mariaa NUÑEZ -[facility] Work Phone: Start: 05-06-2025 End: 05-06-[address] Galina Tavarez DO Work Phone: -[facility] Start: 03-27-2025 Non-patient / Non-visit Dr. Ernie Parker MD -[facility] Start: 03-27-2025 End: 03-27-[address] Galina Tavarez DO Work Phone: -Cardiovascular Services Start: 03-27-2025 End: 03-27-[address] Galina Tavarez DO -Cardiovascular Services Work Phone: Start: 03-27-2025 End: 03-27-2025 ambulatory Galina Tavarez Facility:[facility] Start: 03-12-2025 End: 03-12-[address] Galina Tavarez DO Work Phone: -[facility] Start: 03-12-2025 End: 03-12-[address] Surjit Good MD -[facility] Work Phone: Start: 03-12-2025 End: 03-12-2025 ambulatory Surjit Good Facility:[facility] Start: 01-27-2025 Non-patient / Non-visit Dr. Melissa Hong MD -[facility] Work Phone: Start: 11-13-2024 End: 11-13-[address] Sekou Hebert MD -[facility] Work Phone: Start: 11-13-2024 End: 11-13-[address] Galina Tavarez DO Work Phone: [facility] Work Phone: Start: 11-13-2024 End: 11-13-2024 ambulatory Galina Malvenkat Facility:[facility] Start: 11-06-2024 End: 11-06-[address] Galina Tavarez DO Work Phone: [facility] Work Phone: Start: 11-06-2024 End: 11-06-2024 Patient encounter procedure Bakari Byron LR -[facility] Work Phone: Start: 11-06-2024 End: 11-06-2024 ambulatory Galina Malvenkat Facility:[facility] Start: 09-08-2024 End: 09-08-[address] Robbi Ang MD -Radiology, [place] Work Phone: Start: 09-08-2024 End: 09-08-2024 ambulatory Galina Tavarez Facility:[facility] Start: 07-18-2024 End: 07-18-[address] Galina Tavarez DO -Laboratory, [place] Work Phone: Start: 07-18-2024 End: 07-18-2024 ambulatory Galina Malys Facility:[facility] Start: 07-07-2024 End: 07-07-2024 ambulatory Galina Malys Facility:[facility] Start: 07-03-2024 End: 07-03-2024 ambulatory Galina Malys Facility:[facility] Start: 06-25-2024 End: 06-25-2024 ambulatory Galina Malys Facility:[facility] Start: 05-28-2024 End: 06-27-[address] GALINA TAVAREZ DO Facility:[facility] Start: 05-28-2024 End: 06-27-2024 Physical therapy management KIERAN MOODY MD [facility] Start: 11-27-2023 End: 11-27-[address] Galina Tavarez Work Phone: [facility] Work Phone: Start: 11-27-2023 End: 11-27-[address] Galina Tavarez Work Phone: [facility]-Nuclear Medicine, [facility] Work Phone: Start: 11-16-2023 End: 11-16-[address] Galina Tavarez Work Phone: [facility] Work Phone: Start: 11-16-2023 End: 11-16-[address] Galina Tavarez Work Phone: [facility]-Laboratory, [facility] Work Phone: Start: 11-13-2023 End: 11-13-[address] Galina Tavarez Work Phone: [facility] Work Phone: Start: 11-13-2023 End: 11-13-[address] Galina Tavarez Work Phone: [facility] Work Phone: Start: 10-30-2023 Non-patient / Non-visit Dr. Galina Tavarez Work Phone: [facility] Start: 10-30-2023 End: 10-30-[address] Galina Tavarez Work Phone: [facility] Work Phone: Start: 10-30-2023 End: 10-30-[address] Galina Tavarez Work Phone: [facility]-Cardiovascular Services Work Phone: Start: 10-23-2023 End: 10-23-[address] Galina Tavarez Work Phone: [facility] Work Phone: Start: 10-23-2023 End: 10-23-[address] Galina Tavarez Work Phone: [facility] Work Phone: Start: 10-22-2023 End: 10-22-[address] Galina Tavarez Work Phone: [facility] Work Phone: Start: 10-22-2023 End: 10-22-[address] Galina Tavarez Work Phone: [facility]-Laboratory Work Phone: Start: 10-16-2023 Non-patient / Non-visit Dr. Galina Tavarez Work Phone: [facility] Start: 10-16-2023 End: 10-16-2023 Admission to same day surgery center Dr. Galina Tavarez Work Phone: [facility]-Endoscopy Work Phone: Start: 10-16-2023 End: 10-16-[address] Galina Tavarez Work Phone: [facility] Work Phone: Start: 10-15-2023 End: 10-15-[address] Galina Tavarez Work Phone: [facility] Work Phone: Start: 10-15-2023 End: 10-15-[address] Galina Tavarez Work Phone: [facility]-Laboratory Work Phone: Start: 10-02-[address] Galina Tavarez Work Phone: [facility] Comment on above: Trigger finger surge ry 10/25/23 with local Start: 10-02-2023 End: 10-02-[address] Galina Tavarez Work Phone: [facility] Work Phone: Start: 09-28-2023 End: 09-28-[address] Galina Tavarez Work Phone: [facility] Work Phone: Start: 09-28-2023 End: 09-28-[address] Galina Tavarez Work Phone: [facility] Work Phone: Start: 07-31-2023 End: 07-31-[address] Galina Tavarez Work Phone: [facility] Work Phone: Start: 07-31-2023 End: 07-31-[address] Galina Tavarez Work Phone: [facility] Work Phone: Start: 05-28-2023 End: 05-28-[address] Galina Tavarez Work Phone: [facility] Work Phone: Start: 05-28-2023 End: 05-28-[address] Gal[facility]arez [facility] Start: 05-24-2023 End: 05-24-[address] Galina Tavarez Work Phone: [facility] Work Phone: Start: 05-24-2023 End: 05-24-[address] Galina Tavarez Work Phone: [facility]-Outpatient [facility] Imaging Work Phone: Start: 05-15-2023 End: 05-15-[address] Galina Tavarez Work Phone: [facility] Work Phone: Start: 03-05-2023 End: 03-05-[address] Galina Tavarez Work Phone: [facility] Work Phone: Start: 03-05-2023 End: 03-05-[address] Galina Tavarez Work Phone: [facility] Work Phone: Start: 01-23-2023 End: 01-23-[address] Galina Tavarez Work Phone: [facility] Work Phone: Start: 01-15-2023 End: 01-15-[address] Galina Tavarez Work Phone: [facility] Work Phone: Start: 01-15-2023 End: 01-15-[address] Galina Tavarez Work Phone: [facility] Start: 01-03-2023 End: 01-03-[address] Galina Tavarez Work Phone: [facility] Start: 12-27-2022 End: 12-27-[address] Galina Tavarez Work Phone: [facility] Work Phone: Start: 12-27-2022 End: 12-27-[address] Galina Tavarez Work Phone: [facility] Start: 12-19-2022 End: 12-19-[address] Galina Tavarez Work Phone: [facility] Start: 11-14-2022 End: 11-14-[address] Galina Tavarez Work Phone: [facility] Start: 11-06-2022 Non-patient / Non-visit Dr. Galina Tavarez Work Phone: [facility] Start: 11-06-2022 End: 11-06-2022 Admission to same day surgery center Dr. Galina Tavarez Work Phone: [facility]-End[facility] Start: 11-06-2022 End: 11-06-[address] Galina Tavarez Work Phone: [facility] Work Phone: Start: 10-24-2022 End: 10-24-[address] Galina Tavarez Work Phone: [facility] Start: 10-16-2022 End: 10-16-[address] Galina Tavarez Work Phone: [facility] Work Phone: Start: 10-16-2022 End: 10-16-[address] Galina Tavarez Work Phone: [facility]-Laboratory Start: 10-09-2022 Non-patient / Non-visit Dr. Galina Tavarez Work Phone: [facility] Start: 10-09-2022 Non-patient / Non-visit Dr. Galina Tavarez Work Phone: [facility] Start: 10-09-2022 End: 10-09-[address] Galina Tavarez Work Phone: [facility] Work Phone: Start: 10-09-2022 End: 10-09-[address] Galina Tavarez Work Phone: [facility]-Cardiovascular Services Start: 09-19-2022 End: 09-19-[address] Galina Tavarez Work Phone: [facility] Work Phone: Start: 09-19-2022 End: 09-19-[address] Galina Tavarez Work Phone: [facility] Start: 08-14-2022 End: 08-14-[address] Galina Tavarez Work Phone: [facility] Work Phone: Start: 08-14-2022 End: 08-14-[address] Galina Tavarez Work Phone: [facility] Start: 08-02-2022 End: 08-02-[address] Galina Tavarez Work Phone: [facility] Work Phone: Start: 08-02-2022 End: 08-02-[address] Galina Tavarez Work Phone: [facility] Start: 07-10-2022 End: 07-10-[address] Galina Tavarez Work Phone: [facility] Start: 07-05-2022 End: 07-05-[address] Galina Tavarez Work Phone: [facility] Work Phone: Start: 07-05-2022 End: 07-05-[address] Galina Tavarez Work Phone: [facility] Start: 06-23-2022 End: 06-23-[address] Galina Tavarez Work Phone: [facility] Start: 06-14-2022 End: 06-14-[address] Galina Tavarez Work Phone: [facility] Start: 05-23-2022 End: 05-23-[address] Galina Tavarez Work Phone: [facility] Start: 05-01-2022 End: 05-01-[address] Galina Tavarez Work Phone: [facility] Start: 04-12-2022 End: 04-12-[address] Galina Tavarez Work Phone: [facility] Work Phone: Start: 04-12-2022 End: 04-12-[address] [facility]arez [facility] Start: 02-15-2022 End: 02-15-[address] Galina Tavarez Work Phone: [facility] Start: 02-01-2022 Non-patient / Non-visit Dr. Galina Tavarez Work Phone: [facility] Start: 02-01-2022 End: 02-01-2022 Admission to same day surgery center Dr. Galina Tavarez Work Phone: [facility]-End[facility] Start: 01-10-[address] Galina Tavarez Work Phone: [facility] Start: 01-10-[address] Galina boyer DO Work Phone: [facility] Start: 01-10-2022 End: 01-10-2022 Admission to same day surgery center Dr. Galina Tavarez Work Phone: [facility] Start: 01-10-2022 End: 01-10-[address] Galina Tavarez Work Phone: [facility] Start: 12-30-2021 End: 12-30-[address] Galina Tavarez Work Phone: [facility]-Labor[facility] Start: 12-06-2021 End: 12-06-[address] Galina Tavarez Work Phone: [facility] Start: 11-21-2021 End: 11-21-[address] Galina Tavarez [facility] [place] Start: 11-21-2021 End: 11-21-[address] Galina Tavarez [facility] Start: 11-09-[address] Galina Tavarez [facility] Start: 11-08-2021 End: 11-08-[address] Galina Tavarez [facility] Start: 11-04-2021 End: 11-04-[address] Galina Tavarez Work Phone[facility] Start: 11-01-2021 End: 11-01-[address] Galina Tavarez Work Phone[facility] Start: 10-31-2021 End: 10-31-[address] Galina Tavarez [facility] Start: 10-31-2021 End: 10-31-[address] Galina Tavarez Work Phone: [facility] Start: 10-24-2021 End: 11-21-[address] Galina Tavarez [facility] Start: 10-24-[address] Galina Tavarez [facility] Start: 10-20-2021 End: 10-20-2021 Emergency department patient visit Dr. Galina Tavarez Work Phone: [facility] Start: 10-17-2021 End: 10-17-[address] Galina Tavarez Work Phone: [facility]-Ultrasound, [facility] Start: 10-07-2021 End: 10-07-[address] Galina Tavarez Work Phone: [facility]-N[facility], [facility] Start: 08-24-2021 End: 08-24-[address] Galina Tavarez Work Phone: [facility]-Laboratory, Specimen Start: 07-12-2021 End: 07-12-[address] Galina Tavarez Work Phone: [facility] Start: 04-21-2021 End: 04-21-2021 Subsequent hospital visit by physician Xr [facility] [place] Work Phone: Radiology Comment on above: Tear of right gluteu s medius tendon, initial encounter [S76.011A] Start: 01-14-[address] Galina Tavarez Work Phone: [facility] Start: 11-14-2018 End: 11-14-2018 Emergency department patient visit [facility] Facility:B Procedures Date Procedure Procedure Detail Performing Clinician Start: 03-12-[address] Galina Tavarez DO Work Phone: Comment on above: The atypical pANCA pattern has been obse rved in asignificant percentage of patients with ulcerative colitis,primary sclerosing cholangitis and autoimmune hepatitis.Performed at: [facility] [id number] Director: Scott Atkins PhD, Phone: [phone] Start: 03-12-[address] Galina Tavarez DO Work Phone: Comment on above: Test Ordered: [id number] Anti-MPO Antibodies Anti-MPO Antibodies <0.2 units Reference Range: 0.0-0.9Performed at: [facility] [address] [id number] Director: John Morel MD, Phone: [phone] at: [address] [id number] Director: Scott Atkins PhD, Phone: [phone] Test Ordered: [id number] Anti-PR3 AntibodiesAnti-PR3 Antibodies <0.2 units Reference Range: 0.0-0.9Performed at: [address] [id number] Director: John Morel MD, Phone: [phone] at: [facility] [place] [employer] [id number] Director: Scott Atkins PhD, Phone: [phone] Start: 09-08-2024 Complete x-ray series of lumbosacral spine including bending views Dr. Galina Tavarze DO Work Phone: Start: 07-18-2024 Plain radiography of pelvis Dr. Galina robledo DO Work Phone: Start: 11-27-2023 Radionuclide gastric emptying study Dr. Galina Tavarez Work Phone: Start: 10-30-2023 Cardiovascular stress test using pharmacologic stress agent Dr. Galina Tavarez Work Phone: Start: 10-23-2023 CT of chest without contrast Dr. Galina boyer Work Phone: Start: 10-16-[address] Galina ritter Work Phone: Start: 05-24-2023 Dual energy X-ray absorptiometry Dr. Helga Tavarez Work Phone: Start: 05-24-[address] Galina Tavarez Work Phone: Start: 03-05-2023 Ultrasound elastography of liver Dr. Helga Tavarez Work Phone: Start: 11-06-[address] Galina ritter Work Phone: Start: 10-09-2022 Radionuclide imaging of perfusion of myocardium under exercise stress Dr. Galina Tavarez Work Phone: Start: 08-14-[address] Galina ritter Work Phone: Start: 08-14-[address] Galina Tavarez Work Phone: Start: 05-23-[address] Galina Tavarez Work Phone: Start: 04-12-2022 Diagnostic radiography of finger Dr. Helga Tavarez Work Phone: Start: 11-08-2021 Radionuclide gastric emptying study Dr. Galina Tavarez Work Phone: Start: 11-04-[address] Galina Tavarez Work Phone: Start: 11-01-[address] Galina Tavarez Work Phone: Start: 10-20-2021 Plain chest X-ray Dr. Galina Tavarez Work Phone: Start: 10-20-2021 CT of abdomen and pelvis without contrast Dr. Galina Tavarez Work Phone: Start: 10-17-[address] Galina ritter Work Phone: Start: 10-07-2021 Radionuclide imaging of liver and/or biliary tract using radioactive isotope Dr. Galina Tavarez Work Phone: Start: 08-24-[address] Galina Tavarez Work Phone: Start: 04-21-2021 Radex hip unilateral with pelvis 2-3 views Pradeep Castaneda PA-C Work Phone: Start: 02-23-2021 Antibody screen Comment on above: Performed By: #### [id number] #### [id number] [place], [place] [address] Start: 06-18-2020 History of placement of stent for coronary artery disease History of coronary artery stent placement Dr. Sekou Hebert MD Comment on above: PCI-CYRIL-Mid LCx w/ 3.0 x [address] ent, BMS-Ramus w/ 2.25 x 12 mm Multi Link Vision Stent, CYRIL-Mid LAD w/ 2.5 x 18 mm Cypher Stent, POBA-D2 05/07/2007; PCI-CYRIL-Mid RCA 3.0 x 16 mm Synergy Stent 06/18/2020 Start: 04-24-2019 Colonoscopy Xr [place] Work Phone: Start: 05-09-2017 End: 05-23-2017 *Hepatic Function Panel Ghazala Fair PA-C Work Phone: Start: 05-09-2017 End: 05-23-2017 Lipid 1996 panel - Serum or Plasma Ghazala Fair PA-C Work Phone: Start: 05-09-2017 End: 05-23-2017 *Hepatic Function Panel Ghazala Fair PA-C Work Phone: Start: 05-09-2017 End: 05-23-2017 Lipid panel [AGGREGATE] Ghazala Fair PA-C Work Phone: Start: 12-07-2016 End: 08-29-2017 Follow Up Appt 9 months Leila Wilson Start: 12-07-2016 End: 08-29-2017 DONTE Hebert MD Start: 10-26-2016 End: 11-07-2016 *Hepatic Function Panel Ghazala Fair PA-C Work Phone: Start: 10-26-2016 End: 11-07-2016 Lipid 1996 panel - Serum or Plasma Ghazala Fair PA-C Work Phone: Start: 10-26-2016 End: 11-07-2016 *Hepatic Function Panel Ghazala Fair PA-C Work Phone: Start: 10-26-2016 End: 11-07-2016 Lipid panel [AGGREGATE] Ghazala Fair PA-C Work Phone: Start: 08-21-2016 End: 08-29-2017 *CBC with Differential Torres Yoo Work Phone: Start: 08-21-2016 End: 08-29-2017 *CMP Complete Metabolic Panel Torres mathews DO Work Phone: Start: 08-21-2016 End: 08-29-2017 *Microalbumin, Creatine Ratio, rand urine Torres Magana DO Work Phone: Start: 08-21-2016 End: 08-29-2017 HbA1c Torres Magana DO Work Phone: Start: 08-21-2016 End: 08-29-2017 Thyroid stimulating hormone (TSH) Torres Magana DO Work Phone: Start: 06-06-2016 End: 06-06-2016 Follow Up Appt 6 months Leila Wilson Start: 06-06-2016 End: 06-06-2016 DONTE Hebert MD Start: 06-06-2016 End: 06-06-2016 Follow Up Appt 6 months Leila Wilson Start: 06-06-2016 End: 06-06-2016 DONTE Hebert MD Start: 03-21-2016 End: 04-28-2016 *Hepatic Function Panel Ghazala Fair PA-C Work Phone: Start: 03-21-2016 End: 04-28-2016 Lipid 1996 panel - Serum or Plasma Ghazala Fair PA-C Work Phone: Start: 03-21-2016 End: 04-28-2016 *Hepatic Function Panel Ghazala Fair PA-C Work Phone: Start: 03-21-2016 End: 04-28-2016 Lipid panel [AGGREGATE] Ghazala Fair PA-C Work Phone: Start: 03-02-2016 End: 03-02-2016 Hemoglobin glycosylated a1c Torres ward DO Work Phone: Start: 03-02-2016 End: 03-02-2016 Dietary management education, guidance, and counseling Holly Tan Start: 03-02-2016 End: 03-02-2016 HbA1c Torres Magana DO Work Phone: Start: 03-02-2016 End: 03-02-2016 Hemoglobin glycosylated a1c Torres ward DO Work Phone: Start: 10-13-2015 End: 10-14-2015 Patient referral to dietitian Galina robledo, DO Work Phone: Start: 09-24-2015 End: 09-25-2015 Patient referral to dietitian Galina robledo, DO Work Phone: Start: 09-23-2015 End: 10-11-2015 Hemoglobin glycosylated a1c Galina Amezcua Corby , DO Work Phone: Start: 09-23-2015 End: 08-29-2017 Chest x-ray Galina Amezcua Chuyvenkat, DO Work Phone: Start: 09-23-2015 End: 10-11-2015 HbA1c Galina Amezcua Corby, DO Work Phone: Start: 09-23-2015 End: 10-11-2015 Hemoglobin glycosylated a1c Galina Amezcua Corby , DO Work Phone: Start: 09-09-2015 End: 09-21-2015 *Hepatic Function Panel Ghazala Fair PA-C Work Phone: Start: 09-09-2015 End: 09-21-2015 Lipid 1996 panel - Serum or Plasma Ghazala Fair PA-C Work Phone: Start: 09-09-2015 End: 09-21-2015 *Hepatic Function Panel Ghazala Fair PA-C Work Phone: Start: 09-09-2015 End: 09-21-2015 Lipid panel [AGGREGATE] Ghazala Fair PA-C Work Phone: Start: 08-05-2015 End: 09-21-2015 Thyrotropin [Units/volume] in Serum or Plasma Galina Tavarez, DO Work Phone: Start: 08-05-2015 End: 09-21-2015 Thyroid stimulating hormone (TSH) Galina Tavarez, DO Work Phone: Start: 07-15-2015 End: 07-15-2015 C reactive protein [Mass/volume] in Serum or Plasma by High sensitivity method Galina Tavarez, DO Work Phone: Start: 07-15-2015 End: 07-15-2015 Erythrocyte sedimentation rate Galina Goldie Ma rosalind, DO Work Phone: Start: 07-15-2015 End: 07-15-2015 C reactive protein (hsCRP) Galina Amezcua Chuyvenkat, DO Work Phone: Start: 07-15-2015 End: 07-15-2015 Erythrocyte sedimentation rate Galina Goldie Ma rosalind, DO Work Phone: Start: 07-12-2015 End: 08-29-2017 Ct head/brain w/o dye Galina Tavarez, DO Work Phone: Start: 06-15-2015 End: 08-29-2017 Drain/inject, joint/bursa Galina Goldie Chuyvenkat, DO Work Phone: Start: 06-15-2015 End: 08-29-2017 Kenalog per 10 mg Galina Veravenkat, DO Work Phone: Start: 06-10-2015 End: 08-29-2017 X-ray exam of shoulder Galina Veravenkat, DO Work Phone: Start: 06-03-2015 End: 06-04-2015 [...] Sekou Hebert MD Start: 06-03-2015 End: 06-03-2015 MM Sekou Hebert MD Start: 05-04-2015 End: 08-29-2017 Mammogram, screening Galina Tavarez DO Work Phone: Start: 05-04-2015 Screening mammography Screening mammogram Holly Dominick Start: 03-23-2015 End: 03-24-2015 *BMP Galina Tavarez DO Work Phone: Start: 03-23-2015 End: 03-24-2015 Cobalamin (Vitamin B12) [Mass/volume] in Serum or Plasma Galina Tavarez, DO Work Phone: Start: 03-23-2015 End: 03-24-2015 Ferritin [Mass/volume] in Serum or Plasma Galina Tavarez, DO Work Phone: Start: 03-23-2015 End: 03-24-2015 Iron [Mass/volume] in Serum or Plasma Galina Tavarez DO Work Phone: Start: 03-23-2015 End: 03-24-2015 Thyrotropin [Units/volume] in Serum or Plasma Galina Tavarez DO Work Phone: Start: 03-23-2015 End: 03-25-2015 Thyroxine (T4) free [Mass/volume] in Serum or Plasma Galina Tavarez, DO Work Phone: Start: 03-23-2015 End: 03-24-2015 *BMP Galina Tavarez, DO Work Phone: Start: 03-23-2015 End: 03-24-2015 Cobalamins (Vitamin B12) Galina Amezcua Chuyvenkat, D O Work Phone: Start: 03-23-2015 End: 03-24-2015 Ferritin Galina Tavarez, DO Work Phone: Start: 03-23-2015 End: 03-24-2015 Iron Galina Tavarez, DO Work Phone: Start: 03-23-2015 End: 03-24-2015 Thyroid stimulating hormone (TSH) Galina Tavarez, DO Work Phone: Start: 03-23-2015 End: 03-25-2015 Thyroxine (T4) free Galina Tavarez, DO Work Phone: Start: 02-25-2015 End: 03-09-2015 *Hepatic Function Panel Ghazala Fair PA-C Work Phone: Start: 02-25-2015 End: 03-09-2015 Lipid 1996 panel - Serum or Plasma Ghazala Fair PA-C Work Phone: Start: 02-25-2015 End: 03-09-2015 *Hepatic Function Panel Ghazala Fair PA-C Work Phone: Start: 02-25-2015 End: 03-09-2015 Lipid panel [AGGREGATE] Ghazala Fair PA-C Work Phone: Start: 12-28-2014 End: 08-29-2017 Ct lower extremity w/o dye Galina Tavarez, DO Work Phone: Start: 11-24-2014 End: 04-28-2016 CREDIT COLLECTION ASSOCIATE Ghazala Fair PA-C Work Phone: Start: 11-24-2014 End: 04-28-2016 Follow Up Appt 6 months Ghazala Fair PA-C Work Phone: Start: 11-24-2014 End: 04-28-2016 CREDIT COLLECTION ASSOCIATE Ghazala Fair PA-C Work Phone: Start: 11-24-2014 End: 04-28-2016 Follow Up Appt 6 months Ghazala Fair PA-C Work Phone: Start: 09-03-2014 Adult health examination Well adult/preventative care Holly Tan Start: 09-03-2014 End: 08-29-2017 Thyroid stimulating hormone (TSH) Galina Tavarez DO Work Phone: Start: 07-30-2014 End: 08-31-2014 *Hepatic Function Panel Ghazala Fair PA-C Work Phone: Start: 07-30-2014 End: 08-31-2014 Lipid 1996 panel - Serum or Plasma Ghazala Fair PA-C Work Phone: Start: 07-30-2014 End: 08-31-2014 *Hepatic Function Panel Ghazala Fair PA-C Work Phone: Start: 07-30-2014 End: 08-31-2014 Lipid panel [AGGREGATE] Ghazala Fair PA-C Work Phone: Start: 06-01-2014 Arthroplasty of knee KIERAN MOODY MD Comment on above: left Start: 05-27-2014 End: 05-27-2014 Ecg routine ecg w/least 12 lds w/i&r Sekou Hebert MD Start: 05-27-2014 End: 05-27-2014 Follow Up Appt 6 months Leila Wilson Start: 05-27-2014 End: 05-27-2014 MMM Sekou Hebert MD Start: 05-27-2014 End: 05-27-2014 Electrocardiogram, complete Sekou Espinoza i, MD Start: 05-27-2014 End: 05-27-2014 Follow Up Appt 6 months Leila Wilson Start: 05-27-2014 End: 05-27-2014 MMM Sekou Hebert MD Start: 05-27-2014 End: 06-03-2015 Preoperative cardiovascular examination PRE-OPERATIVE CARDIOVASCULAR EXAMINATION Holly Tan Start: 02-09-2014 Bilateral blepharoplasty of upper and lower eyelids KIERAN MOODY MD Start: 01-27-2014 End: 02-23-2014 *Hepatic Function Panel Leila Wilson Start: 01-27-2014 End: 02-23-2014 Lipid 1996 panel - Serum or Plasma Sekou Hebert MD Start: 01-27-2014 End: 02-23-2014 *Hepatic Function Panel Leila Wilson Start: 01-27-2014 End: 02-23-2014 Lipid panel [AGGREGATE] Leila Wilson Start: 09-02-2013 End: 09-02-2013 YVONNE Fair PA-C Work Phone: Start: 09-02-2013 End: 09-02-2013 Follow Up Appt 6 months Ghazala Fair PA-C Work Phone: Start: 09-02-2013 End: 09-02-2013 YVONNE Fair PA-C Work Phone: Start: 09-02-2013 End: 09-02-2013 Follow Up Appt 6 months Ghazala Fair PA-C Work Phone: Start: 03-19-2013 End: 08-26-2013 [...] months Leila Wilson Start: 03-06-2013 End: 03-06-2013 MMM Sekou Hebert MD Start: 03-06-2013 End: 03-06-2013 [...] 05-30-2012 End: 07-08-2012 Thyroid stimulating hormone (TSH) Jenn Schilling MD Start: 01-31-2012 End: 02-26-2012 *Hepatic [...] 08-29-2011 Follow Up Appt 3 months Aj Schillnig MD Start: 08-29-2011 End: 11-21-2011 Nuclear stress [...] End: 02-26-2012 Thyroxine (T4) Aj Schilling MD Acquired trigger fin sg (disorder) KIERAN MOODY MD Comment on above: JUN 2012 Ankle region structu re (body structure) KIERAN MOODY MD Comment on above: LESION REMOVED 2001 Arthroscopy of shoulder MARLENE MOODY MD Comment on above: 2001 Cataract (disorder) KIERAN MENDOZA MD Comment on above: 2009 Decompression of median nerve KIERAN MOODY MD Comment on above: X2 2002, 2004 Entire gluteus mediu s muscle (body structure) KIERAN MOODY MD Comment on above: TENDON REATTACHMENT 2005 Lateral epicondylitis (disorder) KIERAN MOODY MD Comment on above: 2003 Stent, device (physical object) KIERAN MOODY MD Comment on above: CARDIAC X3 2006 Plan of Treatment Date Care Activity Detail Author Start: 04-24-2029 Screening for malignant neoplasm of colon [facility] Start: 2025 RSV Vaccine (1 - 1-dose 75+ series) RSV Vaccine (1 - 1-dose 75+ series) [facility] Start: 06-17-2025 ambulatory Ambulatory Facility:[facility] Start: 03-30-2024 Covid-19 Vaccine ( season) Covid-19 Vaccine ( season) [facility] Start: 03-30-2024 Influenza vaccination Influ[facility]ine [facility] Start: 11-16-2023 5-Hydroxyindoleacetate [Mass/volume] in 24 hour Urine [facility] Start: 10-16-2023 Egd transoral biopsy single/multiple EGD BIOPSY SINGLE/MULTIPLE [facility] Start: 10-16-2023 Patient discharge [facility] Start: 09-28-2023 Procedure [facility] Start: 07-30-2023 Advance Directive Discussion Advance Directive Discussion [facility] Start: 11-06-2022 Egd transoral biopsy single/multiple EGD BIOPSY SINGLE/MULTIPLE [facility] Start: 11-06-2022 Patient discharge [facility] Start: 02-01-2022 Colonoscopy w/biopsy single/multiple COLONOSCOPY AND BIOPSY [facility] Work Phone: Start: 02-01-2022 Colsc flx w/rmvl of tumor polyp lesion snare tq COLONOSCOPY W/LESION REMOVAL [facility] Work Phone: Start: 02-01-2022 Egd removal tumor polyp/other lesion snare tech EGD REMOVE LESION SNARE [facility] Work Phone: Start: 02-01-2022 Egd transoral biopsy single/multiple EGD BIOPSY SINGLE/MULTIPLE [facility] Work Phone: Start: 02-01-2022 Patient discharge [facility] Work Phone: Start: 12-07-2021 Patient referral [facility] Work Phone: Start: 11-26-2017 End: 05-29-2017 *Hepatic Function Panel *Hepatic Function Panel [email or web address] Work Phone: Start: 11-26-2017 End: 05-29-2017 Lipid panel [AGGREGATE] *Lipid Profile CC PCP [facility] Work Phone: Start: 11-26-2017 End: 05-29-2017 *Hepatic Function Panel *Hepatic Function Panel [facility] Work Phone: Start: 11-26-2017 End: 05-29-2017 Lipid panel [AGGREGATE] *Lipid Profile CC PCP [facility] Work Phone: Start: 09-10-2017 End: 09-10-2017 Appointment Appointment [facility] Work Phone: Start: 09-10-2017 End: 09-10-2017 Appointment Appointment [facility] Work Phone: Start: 05-09-2017 End: 05-23-2017 *Hepatic Function Panel *Hepatic Function Panel [facility] Work Phone: Start: 05-09-2017 End: 05-23-2017 Lipid panel [AGGREGATE] *Lipid Profile CC PCP [facility] Work Phone: Start: 05-09-2017 End: 05-23-2017 *Hepatic Function Panel *Hepatic Function Panel [facility] Work Phone: Start: 05-09-2017 End: 05-23-2017 Lipid panel [AGGREGATE] *Lipid Profile CC PCP [facility] Work Phone: Start: 03-06-2017 End: 03-06-2017 CA screen;pelvic/breast exam Pelvic/Breast Exam (Medicare Patient) [facility] Work Phone: Start: 03-06-2017 End: 03-06-2017 Mammogram, screening Mammogram, Screening, both breasts [facility] Work Phone: Start: 03-06-2017 End: 03-06-2017 Appointment Appointment [facility] Start: 03-06-2017 End: 03-06-2017 Mammogram, screening Mammogram, Screening, both breasts [facility] Start: 03-06-2017 End: 03-06-2017 Pelvic/Breast Exam (Medicare Patient) Pelvic/Breast Exam (Medicare Patient) [facility] Start: 12-21-2016 Screening for malignant neoplasm of colon Fecal Occult Blood [facility] Start: 12-07-2016 End: 12-07-2016 Follow Up Appt 9 months Follow Up Appt 9 months [facility] Work Phone: Start: 12-07-2016 End: 12-07-2016 MMM MMM [facility] Work Phone: Start: 12-07-2016 End: 12-07-2016 Appointment Appointment [facility] Work Phone: Start: 12-07-2016 End: 08-29-2017 Follow Up Appt 9 months Follow Up Appt 9 months [facility] Work Phone: Start: 12-07-2016 End: 08-29-2017 MMM MMM [facility] Work Phone: Start: 10-26-2016 End: 11-07-2016 *Hepatic Function Panel *Hepatic Function Panel [facility] Work Phone: Start: 10-26-2016 End: 11-07-2016 Lipid panel [AGGREGATE] *Lipid Profile CC PCP [facility] Work Phone: Start: 10-26-2016 End: 11-07-2016 *Hepatic Function Panel *Hepatic Function Panel [facility] Work Phone: Start: 10-26-2016 End: 11-07-2016 Lipid panel [AGGREGATE] *Lipid Profile CC PCP [facility] Work Phone: Start: 09-02-2016 Hemoglobin A1c measurement HbA1C [facility] Start: 08-21-2016 End: 03-02-2016 *CBC with Differential *CBC with Differential [facility] Work Phone: Start: 08-21-2016 End: [...] End: 03-02-2016 Thyroid stimulating hormone (TSH) *TSH [facility] Work Phone: Start: 08-21-2016 End: 08-29-2017 *CBC with Differential *CBC with Differential [facility] Work Phone: Start: 08-21-2016 End: 08-29-2017 *CMP Complete Metabolic Panel *CMP Complete Metabolic Panel [facility] Work Phone: Start: 08-21-2016 End: 08-29-2017 *Microalbumin, Creatine Ratio, rand urine *Microalbumin, Creatine Ratio, rand urine [facility] Work Phone: Start: 08-21-2016 End: 08-29-2017 HbA1c *HgA1C [facility] Work Phone: Start: 08-21-2016 End: 08-29-2017 Thyroid stimulating hormone (TSH) *TSH [facility] Work Phone: Start: 07-12-2016 Screening for malignant neoplasm of breast Mammogram Screening [facility] Start: 06-06-2016 End: 06-06-2016 Follow Up Appt 6 months Follow Up Appt 6 months [facility] Work Phone: Start: 06-06-2016 End: 06-06-2016 MMM MMM [facility] Work Phone: Start: 06-06-2016 End: 06-06-2016 Follow Up Appt 6 months Follow Up Appt 6 months [facility] Work Phone: Start: 06-06-2016 End: 06-06-2016 MMM MM [facility] Work Phone: Start: 03-21-2016 End: 04-28-2016 *Hepatic Function Panel *Hepatic Function Panel [facility] Work Phone: Start: 03-21-2016 End: 04-28-2016 Lipid panel [AGGREGATE] *Lipid Profile CC PCP [facility] Work Phone: Start: 03-21-2016 End: 04-28-2016 *Hepatic Function Panel *Hepatic Function Panel [facility] Work Phone: Start: 03-21-2016 End: 04-28-2016 Lipid panel [AGGREGATE] *Lipid Profile CC PCP [facility] Work Phone: Start: 10-13-2015 End: 10-14-2015 WhyWeight WhyWeight [facility], [address] [place], [address] [facility] Work Phone: Start: 10-13-2015 End: 10-14-2015 WhyWeight WhyWeight [facility], [address] [place], [address] [facility] Work Phone: Start: 09-24-2015 End: 09-28-2015 Blow Molding Machine Operator Blow Molding Machine Operator [facility], [address] [place], [address] [facility] Work Phone: Start: 09-24-2015 End: 09-28-2015 Blow Molding Machine Operator Blow Molding Machine Operator [facility] Services, [address] [place], [address] [facility] Work Phone: Start: 09-23-2015 End: 09-23-2015 Chest x-ray X-Ray, Chest, PA & Lateral [facility] Work Phone: Start: 09-23-2015 End: 08-29-2017 Chest x-ray X-Ray, Chest, PA & Lateral [facility] Work Phone: Start: 09-09-2015 End: 09-21-2015 *Hepatic Function Panel *Hepatic Function Panel [facility] Work Phone: Start: 09-09-2015 End: 09-21-2015 Lipid panel [AGGREGATE] *Lipid Profile CC PCP [facility] Work Phone: Start: 09-09-2015 End: 09-21-2015 *Hepatic Function Panel *Hepatic Function Panel [facility] Work Phone: Start: 09-09-2015 End: 09-21-2015 Lipid panel [AGGREGATE] *Lipid Profile CC PCP [facility] Work Phone: Start: 08-05-2015 End: 09-21-2015 Thyroid stimulating hormone (TSH) *TSH [facility] Work Phone: Start: 08-05-2015 End: 09-21-2015 Thyroid stimulating hormone (TSH) *TSH [facility] Work Phone: Start: 07-15-2015 End: 07-15-2015 C reactive protein (hsCRP) *CRP - C-Reative Protein [facility] Work Phone: Start: 07-15-2015 End: 07-15-2015 Erythrocyte sedimentation rate *Sedimentation Rate (ESR) [facility] Work Phone: Start: 07-15-2015 End: 07-15-2015 C reactive protein (hsCRP) *CRP - C-Reative Protein [facility] Work Phone: Start: 07-15-2015 End: 07-15-2015 Erythrocyte sedimentation rate *Sedimentation Rate (ESR) [facility] Work Phone: Start: 07-12-2015 End: [...] acet inj NOS Kenalog per 10 mg [facility] Work Phone: Start: 06-15-2015 End: 08-29-2017 Drain/inject, joint/bursa Injection, Joint (major) [facility] Work Phone: Start: 06-15-2015 End: 08-29-2017 Kenalog per 10 mg Kenalog per 10 mg [facility] Work Phone: Start: 06-10-2015 End: 06-10-2015 Radex shoulder complete minimum 2 views X-Ray, Shoulder [facility] Work Phone: Start: 06-10-2015 End: 08-29-2017 X-ray exam of shoulder X-Ray, Shoulder [facility] Work Phone: Start: 06-03-2015 End: 06-03-2015 Follow Up Appt 1 year Follow Up Appt 1 year [facility] Work Phone: Start: 06-03-2015 End: 06-03-2015 MMM MMM [facility] Work Phone: Start: 06-03-2015 End: 06-03-2015 Follow Up Appt 1 year Follow Up Appt 1 year [facility] Work Phone: Start: 06-03-2015 End: 06-03-2015 MMM MMM [facility] Work Phone: Start: 05-04-2015 End: 05-04-2015 Mammogram, screening Mammogram, Screening, both breasts [facility] Work Phone: Start: 05-04-2015 End: 08-29-2017 Mammogram, screening Mammogram, Screening, both breasts [facility] Work Phone: Start: 03-23-2015 End: 03-24-2015 *BMP *BMP [facility] Work Phone: Start: 03-23-2015 End: 03-24-2015 Cobalamins (Vitamin B12) *B-12 [facility] Work Phone: Start: 03-23-2015 End: 03-24-2015 Ferritin *Ferritin [facility] Work Phone: Start: 03-23-2015 End: 03-24-2015 Iron *Iron [facility] Work Phone: Start: 03-23-2015 End: 03-24-2015 Thyroid stimulating hormone (TSH) *TSH [facility] Work Phone: Start: 03-23-2015 End: 03-25-2015 Thyroxine (T4) free *T4 free [facility] Work Phone: Start: 03-23-2015 End: 03-24-2015 *BMP *BMP [facility] Work Phone: Start: 03-23-2015 End: 03-24-2015 Cobalamins (Vitamin B12) *B-12 [facility] Work Phone: Start: 03-23-2015 [...] Lipid panel [AGGREGATE] *Lipid Profile CC PCP [facility] Work Phone: Start: 02-25-2015 End: 03-09-2015 *Hepatic Function Panel *Hepatic Function Panel [facility] Work Phone: Start: 02-25-2015 End: 03-09-2015 Lipid panel [AGGREGATE] *Lipid Profile CC PCP [facility] Work Phone: Start: 12-28-2014 End: 12-28-2014 Ct lower extremity w/o contrast material CT Lower Extremity [facility] Work Phone: Start: 12-28-2014 End: 08-29-2017 Ct lower extremity w/o dye CT Lower Extremity [facility] Work Phone: Start: 11-24-2014 End: 04-28-2016 CREDIT COLLECTION ASSOCIATE CREDIT COLLECTION ASSOCIATE [facility] Work Phone: Start: 11-24-2014 End: 04-28-2016 Follow Up Appt 6 months Follow Up Appt 6 months [facility] Work Phone: Start: 11-24-2014 End: 04-28-2016 CREDIT COLLECTION ASSOCIATE CREDIT COLLECTION ASSOCIATE [facility] Work Phone: Start: 11-24-2014 End: 04-28-2016 Follow Up Appt 6 months Follow Up Appt 6 months [facility] Work Phone: Start: 09-03-2014 End: 09-03-2014 Thyroid stimulating hormone (TSH) *TSH [facility] Work Phone: Start: 09-03-2014 End: 08-29-2017 Thyroid stimulating hormone (TSH) *TSH [facility] Work Phone: Start: 07-30-2014 [...] PCP [facility] Work Phone: Start: 05-27-2014 End: 05-27-2014 Ecg routine ecg w/least 12 lds w/i&r EKG (In office) [facility] Work Phone: Start: 05-27-2014 End: 05-27-2014 Follow Up Appt 6 months Follow Up Appt 6 months [facility] Work Phone: Start: 05-27-2014 End: 05-27-2014 MMM MMM [facility] Work Phone: Start: 05-27-2014 End: 05-27-2014 Electrocardiogram, complete EKG (In office) [facility] Work Phone: Start: 05-27-2014 End: 05-27-2014 Follow Up Appt 6 months Follow Up Appt 6 months [facility] Work Phone: Start: 05-27-2014 End: 05-27-2014 MMM MMM [facility] Work Phone: Start: 01-27-2014 End: 02-23-2014 *Hepatic Function Panel *Hepatic Function Panel [facility] Work Phone: Start: 01-27-2014 End: 02-23-2014 Lipid panel [AGGREGATE] *Lipid Profile CC PCP [facility] Work Phone: Start: 01-27-2014 End: 02-23-2014 *Hepatic Function Panel *Hepatic Function Panel [facility] Work Phone: Start: 01-27-2014 End: 02-23-2014 Lipid panel [AGGREGATE] *Lipid Profile CC PCP [facility] Work Phone: Start: 09-02-2013 End: 09-02-2013 CREDIT COLLECTION ASSOCIATE CREDIT COLLECTION ASSOCIATE [facility] Work Phone: Start: 09-02-2013 End: 09-02-2013 Follow Up Appt 6 months Follow Up Appt 6 months [facility] Work Phone: Start: 09-02-2013 End: 09-02-2013 CREDIT COLLECTION ASSOCIATE CREDIT COLLECTION ASSOCIATE [facility] Work Phone: Start: 09-02-2013 End: 09-02-2013 Follow Up Appt 6 months Follow Up Appt 6 months [facility] Work Phone: Start: 03-19-2013 End: 08-26-2013 *Hepatic Function Panel *Hepatic Function Panel [facility] Work Phone: Start: 03-19-2013 End: 08-26-2013 Lipid panel [AGGREGATE] *Lipid Profile [facility] Work Phone: Start: 03-19-2013 End: 08-26-2013 *Hepatic Function Panel *Hepatic Function Panel [facility] Work Phone: Start: 03-19-2013 End: 08-26-2013 Lipid panel [AGGREGATE] *Lipid Profile [facility] Work Phone: Start: 03-06-2013 End: 03-06-2013 Ecg routine ecg w/least 12 lds w/i&r EKG (In office) [facility] Work Phone: Start: 03-06-2013 End: 03-06-2013 Follow Up Appt 6 months Follow Up Appt 6 months [facility] Work Phone: Start: 03-06-2013 End: 03-06-2013 MMM MMM [facility] Work Phone: Start: 03-06-2013 End: 03-06-2013 Electrocardiogram, complete EKG (In office) [facility] Work Phone: Start: 03-06-2013 End: 03-06-2013 Follow Up Appt 6 months Follow Up Appt 6 months [facility] Work Phone: Start: 03-06-2013 End: 03-06-2013 MMM MMM [facility] Work Phone: Start: 09-03-2012 End: 09-03-2012 Follow Up Appt 6 months Follow Up Appt 6 months [facility] Work Phone: Start: 09-03-2012 End: 09-03-2012 Follow Up Appt 6 months Follow Up Appt 6 months [facility] Work Phone: Start: 07-31-2012 End: 08-20-2012 *Hepatic Function Panel *Hepatic Function Panel [facility] Work Phone: Start: 07-31-2012 End: 08-20-2012 Lipid panel [AGGREGATE] *Lipid Profile [facility] Work Phone: Start: 07-31-2012 End: 08-20-2012 *Hepatic Function Panel *Hepatic Function Panel [facility] Work Phone: Start: 07-31-2012 End: 08-20-2012 Lipid panel [AGGREGATE] *Lipid Profile [facility] Work Phone: Start: 06-26-2012 End: 06-10-2012 24 hour holter monitor 24 hour holter monitor [facility] Work Phone: Start: 06-26-2012 End: 06-10-2012 24 hour holter monitor 24 hour holter monitor [facility] Work Phone: Start: 06-03-2012 End: 07-08-2012 *CBC with Differential *CBC with Differential [facility] Work Phone: Start: 06-03-2012 End: 07-08-2012 *CBC with Differential *CBC with Differential [facility] Work Phone: Start: 05-30-2012 End: 05-30-2012 *BMP *BMP [facility] Work Phone: Start: 05-30-2012 End: 05-30-2012 24 hour holter monitor 24 hour holter monitor [facility] Work Phone: Start: 05-30-2012 End: 07-08-2012 aPTT *PTT-Partial Thromboplastin Time [facility] Work Phone: Start: 05-30-2012 End: 07-08-2012 Chest x-ray X-Ray, Chest, PA & Lateral [facility] Work Phone: Start: 05-30-2012 End: 05-30-2012 Ecg routine ecg w/least 12 lds w/i&r EKG (In office) [facility] Work Phone: Start: 05-30-2012 End: 05-30-2012 Echocardiography Echocardiogram (complete) [facility] Work Phone: Start: 05-30-2012 End: 05-30-2012 Follow Up Appt 3 months Follow Up Appt 3 months [facility] Work Phone: Start: 05-30-2012 End: 07-08-2012 INR Coag RelTime (PPP) *PT/INR [facility] Work Phone: Start: 05-30-2012 End: 05-30-2012 Left Heart Cath Left Heart Cath [facility] Work Phone: Start: 05-30-2012 End: 07-08-2012 Magnesium *Magnesium [facility] Work Phone: Start: 05-30-2012 End: 07-08-2012 Thyroid stimulating hormone (TSH) *TSH [facility] Work Phone: Start: 05-30-2012 End: 05-30-2012 *BMP *BMP [facility] Work Phone: Start: 05-30-2012 End: 05-30-2012 24 hour holter monitor 24 hour holter monitor [facility] Work Phone: Start: 05-30-2012 End: 07-08-2012 aPTT *PTT-Partial Thromboplastin Time [facility] Work Phone: Start: 05-30-2012 End: 07-08-2012 aPTT Coag time (PPP) *PTT-Partial Thromboplastin Time [facility] Work Phone: Start: 05-30-2012 End: 07-08-2012 Chest x-ray X-Ray, Chest, PA & Lateral [facility] Work Phone: Start: 05-30-2012 End: 07-08-2012 Coagulation factor induced.INR assay in platelet poor plasma *PT/INR [facility] Work Phone: Start: 05-30-2012 End: 05-30-2012 Echocardiography Echocardiogram (complete) [facility] Work Phone: Start: 05-30-2012 End: 05-30-2012 Electrocardiogram, complete EKG (In office) [facility] Work Phone: Start: 05-30-2012 End: 05-30-2012 Follow Up Appt 3 months Follow Up Appt 3 months [facility] Work Phone: Start: 05-30-2012 End: 05-30-2012 Left Heart Cath Left Heart Cath [facility] Work Phone: Start: 05-30-2012 End: 07-08-2012 Magnesium *Magnesium [facility] Work Phone: Start: 05-30-2012 End: 07-08-2012 Thyroid stimulating hormone (TSH) *TSH [facility] Work Phone: Start: 01-31-2012 End: 02-26-2012 *Hepatic Function Panel *Hepatic Function Panel [facility] Work Phone: Start: 01-31-2012 End: 02-26-2012 Lipid panel [AGGREGATE] *Lipid Profile [facility] Work Phone: Start: 01-31-2012 End: 02-26-2012 *Hepatic Function Panel *Hepatic Function Panel [facility] Work Phone: Start: 01-31-2012 End: 02-26-2012 Lipid panel [AGGREGATE] *Lipid Profile [facility] Work Phone: Start: 11-30-2011 End: 11-30-2011 Follow Up Appt 6 months Follow Up Appt 6 months [facility] Work Phone: Start: 11-30-2011 End: 11-30-2011 Follow Up Appt 6 months Follow Up Appt 6 months [facility] Work Phone: Start: 08-29-2011 End: 08-29-2011 *BMP *BMP [facility] Work Phone: Start: 08-29-2011 End: 08-29-2011 *CBC with Differential *CBC with Differential [facility] Work Phone: Start: 08-29-2011 End: 08-29-2011 24 hour holter monitor 24 hour holter monitor [facility] Work Phone: Start: 08-29-2011 End: 08-29-2011 Carotid duplex Carotid duplex [facility] Work Phone: Start: 08-29-2011 End: 08-29-2011 Echocardiography Echocardiogram (complete) [facility] Work Phone: Start: 08-29-2011 End: 08-29-2011 Follow Up Appt 3 months Follow Up Appt 3 months [facility] Work Phone: Start: 08-29-2011 End: 08-29-2011 Nuclear stress test -exercise Nuclear stress test -exercise [facility] Work Phone: Start: 08-29-2011 End: 08-29-2011 Thyroid stimulating hormone (TSH) *TSH [facility] Work Phone: Start: 08-29-2011 End: 02-26-2012 Thyroxine (T4) *T4 (Total) [facility] Work Phone: Start: 08-29-2011 End: 08-29-2011 *BMP *BMP [facility] Work Phone: Start: 08-29-2011 End: 08-29-2011 *CBC with Differential *CBC with Differential [facility] Work Phone: Start: 08-29-2011 End: 08-29-2011 24 hour holter monitor 24 hour holter monitor [facility] Work Phone: Start: 08-29-2011 End: 08-29-2011 Carotid duplex Carotid duplex [facility] Work Phone: Start: 08-29-2011 End: 08-29-2011 Echocardiography Echocardiogram (complete) [facility] Work Phone: Start: 08-29-2011 End: 08-29-2011 Follow Up Appt 3 months Follow Up Appt 3 months [facility] Work Phone: Start: 08-29-2011 End: 08-29-2011 Nuclear stress test -exercise Nuclear stress test -exercise [facility] Work Phone: Start: 08-29-2011 End: 08-29-2011 Thyroid stimulating hormone (TSH) *TSH [facility] Work Phone: Start: 08-29-2011 End: 02-26-2012 Thyroxine (T4) *T4 (Total) [facility] Work Phone: Start: 2000 Shingrix Vaccine (1 of 2) Shingrix Vaccine (1 of 2) [facility] Start: 1995 Screening for malignant neoplasm of colon [facility] Start: 1969 Urine microalbumin profile DTaP,Tdap,Td Vaccine (1 - Tdap) [facility] Start: 1968 Annual PCP Team Chronic Disease Visit Annual PCP Team Chronic Disease Visit [facility] Start: 1968 Anxiety Screening Anxiety Screening [facility] Start: 1968 BP Controlled (<130/80) BP Controlled (<130/80) [facility] Start: 1968 Depression Screening Depression Screening [facility] Start: 1968 Hepatitis B surface antibody level LDL Cholesterol [facility] Start: 1968 Hepatitis C screening Hepatitis C Screening [facility] Start: 1960 Diabetic foot examination Diabetic Foot Exam [facility] Start: 1960 Glaucoma screening Dilated Retinal Exam [facility] Start: 1960 Hepatitis B screening Urine Albumin:Creatinine Ratio [facility] Start: 1956 Pneumococcal Vaccine: 65+ (1 of 2 - PCV) Pneumococcal Vaccine: 65+ (1 of 2 - PCV) [facility] 5-Hydroxyindoleaceti c acid measurement [facility] Blood chemistry [facility] [place] Heart Views W str ess and W radionuclide IV [facility] Patient Education [facility] Work Phone: Patient referral [facility] Work Phone: Radionuclide gastric emptying study [facility] Radionuclide imaging of perfusion of myocardium under exercise stress [facility] Immunizations Immunization Date Immunization Notes Care Provider Fa cility 10-13-2020 Covid (Moderna) Dr. Galina robledo Work Phone: [facility] 09-15-2020 Covid (Moderna) Dr. Galina robledo Work Phone: [facility] Payers Date Payer Category Payer Self-pay [id number] 2019 Unknown MMO MMO MEDICARE SUPPLEMENT [id number] 2019-Present [phone] [address] [id number] Indemnity [id number] 2018 Medicare [id number] 2016 Medicare MEDICARE MEDICAR E A AND B [id number] 2016-Present [phone] [address] [address] [place] [address] Medicare [id number] 2016 Unknown [id number] 2015 Medicare [id number] 2004 Unknown [id number] 1950 Unknown [id number] 1950 Unknown [id number] [id number] Unknown [id number] [id number] Unknown [id number] Unknown [id number] [id number] Unknown [id number] 2..[id number] Unknown [id number] [id number] Unknown [id number] [id number] Unknown [id number] [id number] Unknown [id number] [id number] Unknown [id number] [id number] Unknown [id number] [id number] Unknown [id number] [id number] Unknown [id number] [id number] Unknown [id number] [id number] Unknown [id number] 2..[id number] Unknown [id number] [id number] Unknown [id number] [id number] Unknown [id number] [id number] Unknown [id number] Social History Date Type Detail Facility Start: 10-31-2021 End: 11-13-2023 Tobacco smoking status NHIS Unknown if ever smoked [facility] Start: 04-29-2019 None [facility] Start: 06-29-2020 Spouse/ Signif icant Other [facility] Start: 05-30-2019 Non-smoker [facility] Start: 1950 Sex Assigned At Female W [facility] Start: 01-31-2011 End: 03-14-2024 Tobacco smoking status NHIS Never smoked tobacco [facility] Work Phone: Start: 01-31-2011 Tobacco use and exposure Smokeless tobacco non-user [facility] Start: 04-21-2021 Alcoholic beverage intake Current non-drinker of alcohol (finding) [facility] Start: 12-31-2020 End: 04-21-2021 History of Social function [facility] Start: 12-31-2020 End: 04-21-2021 Tobacco use panel [facility] National Score (1-100), lower number is lower risk Not on file [facility] Start: 02-16-2021 Gender identity Identifies as female gender (finding) [facility] Start: 02-16-2021 Sexual orientation Heterosexual (fin ding) [facility] Sex Assigned At Sex [facility] Start: 11-12-2024 End: 11-18-2024 Sex Female (finding) [facility] NEGATED: Highlighted row [facility] Medical Equipment Procedure Code Equipment Code Equipment Origin al Text Equipment Identifier Dates LANCETS [id number] Start: 09-23-2015 End: 10-26-2015 TEST STRIPS [id number] Start: 09-23-2015 MULTI LINK HEART STENT;CORDIS CYPHER STENT X 2 FDA Start: 05-07-2007 MULTI LINK HEART STENT;CORDIS CYPHER STENT X 2 FDA Start: 05-07-2007 MULTI LINK HEART STENT;CORDIS CYPHER STENT X 2 FDA Start: 05-07-2007 MULTI LINK HEART STENT;CORDIS CYPHER STENT X 2 FDA Start: 05-07-2007 MULTI LINK HEART STENT;CORDIS CYPHER STENT X 2 FDA Start: 05-07-2007 MULTI LINK HEART STENT;CORDIS CYPHER STENT X 2 FDA Start: 05-07-2007 MULTI LINK HEART STENT;CORDIS CYPHER STENT X 2 FDA Start: 05-07-2007 MULTI LINK HEART STENT;CORDIS CYPHER STENT X 2 FDA Start: 05-07-2007 MULTI LINK HEART STENT;CORDIS CYPHER STENT X 2 FDA Start: 05-07-2007 MULTI LINK HEART STENT;CORDIS CYPHER STENT X 2 FDA Start: 05-07-2007 MULTI LINK HEART STENT;CORDIS CYPHER STENT X 2 FDA Start: 05-07-2007 MULTI LINK HEART STENT;CORDIS CYPHER STENT X 2 FDA Start: 05-07-2007 MULTI LINK HEART STENT;CORDIS CYPHER STENT X 2 FDA Start: 05-07-2007 MULTI LINK HEART STENT;CORDIS CYPHER STENT X 2 FDA Start: 05-07-2007 MULTI LINK HEART STENT;CORDIS CYPHER STENT X 2 FDA Start: 05-07-2007 MULTI LINK HEART STENT;CORDIS CYPHER STENT X 2 FDA Start: 05-07-2007 MULTI LINK HEART STENT;CORDIS CYPHER STENT X 2 FDA Start: 05-07-2007 MULTI LINK HEART STENT;CORDIS CYPHER STENT X 2 FDA Start: 05-07-2007 MULTI LINK HEART STENT;CORDIS CYPHER STENT X 2 FDA Start: 05-07-2007 MULTI LINK HEART STENT;CORDIS CYPHER STENT X 2 FDA Start: 05-07-2007 MULTI LINK HEART STENT;CORDIS CYPHER STENT X 2 FDA Start: 05-07-2007 MULTI LINK HEART STENT;CORDIS CYPHER STENT X 2 FDA Start: 05-07-2007 MULTI LINK HEART STENT;CORDIS CYPHER STENT X 2 FDA Start: 05-07-2007 MULTI LINK HEART STENT;CORDIS CYPHER STENT X 2 FDA Start: 05-07-2007 MULTI LINK HEART STENT;CORDIS CYPHER STENT X 2 FDA Start: 05-07-2007 MULTI LINK HEART STENT;CORDIS CYPHER STENT X 2 FDA Start: 05-07-2007 MULTI LINK HEART STENT;CORDIS CYPHER STENT X 2 FDA Start: 05-07-2007 MULTI LINK HEART STENT;CORDIS CYPHER STENT X 2 FDA Start: 05-07-2007 MULTI LINK HEART STENT;CORDIS CYPHER STENT X 2 FDA Start: 05-07-2007 MULTI LINK HEART STENT;CORDIS CYPHER STENT X 2 FDA Start: 05-07-2007 MULTI LINK HEART STENT;CORDIS CYPHER STENT X 2 FDA Start: 05-07-2007 MULTI LINK HEART STENT;CORDIS CYPHER STENT X 2 FDA Start: 05-07-2007 MULTI LINK HEART STENT;CORDIS CYPHER STENT X 2 FDA Start: 05-07-2007 MULTI LINK HEART STENT;CORDIS CYPHER STENT X 2 FDA Start: 05-07-2007 MULTI LINK HEART STENT;CORDIS CYPHER STENT X 2 FDA Start: 05-07-2007 MULTI LINK HEART STENT;CORDIS CYPHER STENT X 2 FDA Start: 05-07-2007 MULTI LINK HEART STENT;CORDIS CYPHER STENT X 2 FDA Start: 05-07-2007 MULTI LINK HEART STENT;CORDIS CYPHER STENT X 2 FDA Start: 05-07-2007 MULTI LINK HEART STENT;CORDIS CYPHER STENT X 2 FDA Start: 05-07-2007 MULTI LINK HEART STENT;CORDIS CYPHER STENT X 2 FDA Start: 05-07-2007 MULTI LINK HEART STENT;CORDIS CYPHER STENT X 2 FDA Start: 05-07-2007 MULTI LINK HEART STENT;CORDIS CYPHER STENT X 2 FDA Start: 05-07-2007 MULTI LINK HEART STENT;CORDIS CYPHER STENT X 2 FDA Start: 05-07-2007 MULTI LINK HEART STENT;CORDIS CYPHER STENT X 2 FDA Start: 05-07-2007 MULTI LINK HEART STENT;CORDIS CYPHER STENT X 2 FDA Start: 05-07-2007 MULTI LINK HEART STENT;CORDIS CYPHER STENT X 2 FDA Start: 05-07-2007 MULTI LINK HEART STENT;CORDIS CYPHER STENT X 2 FDA Start: 05-07-2007 MULTI LINK HEART STENT;CORDIS CYPHER STENT X 2 FDA Start: 05-07-2007 MULTI LINK HEART STENT;CORDIS CYPHER STENT X 2 FDA Start: 05-07-2007 MULTI LINK HEART STENT;CORDIS CYPHER STENT X 2 FDA Start: 05-07-2007 MULTI LINK HEART STENT;CORDIS CYPHER STENT X 2 FDA Start: 05-07-2007 MULTI LINK HEART STENT;CORDIS CYPHER STENT X 2 FDA Start: 05-07-2007 MULTI LINK HEART STENT;CORDIS CYPHER STENT X 2 FDA Start: 05-07-2007 MULTI LINK HEART STENT;CORDIS CYPHER STENT X 2 FDA Start: 05-07-2007 MULTI LINK HEART STENT;CORDIS CYPHER STENT X 2 FDA Start: 05-07-2007 MULTI LINK HEART STENT;CORDIS CYPHER STENT X 2 FDA Start: 05-07-2007 MULTI LINK HEART STENT;CORDIS CYPHER STENT X 2 FDA Start: 05-07-2007 MULTI LINK HEART STENT;CORDIS CYPHER STENT X 2 FDA Start: 05-07-2007 MULTI LINK HEART STENT;CORDIS CYPHER STENT X 2 FDA Start: 05-07-2007 MULTI LINK HEART STENT;CORDIS CYPHER STENT X 2 FDA Start: 05-07-2007 MULTI LINK HEART STENT;CORDIS CYPHER STENT X 2 FDA Start: 05-07-2007 MULTI LINK HEART STENT;CORDIS CYPHER STENT X 2 FDA Start: 05-07-2007 MULTI LINK HEART STENT;CORDIS CYPHER STENT X 2 FDA Start: 05-07-2007 MULTI LINK HEART STENT;CORDIS CYPHER STENT X 2 FDA Start: 05-07-2007 MULTI LINK HEART STENT;CORDIS CYPHER STENT X 2 FDA Start: 05-07-2007 MULTI LINK HEART STENT;CORDIS CYPHER STENT X 2 FDA Start: 05-07-2007 MULTI LINK HEART STENT;CORDIS CYPHER STENT X 2 FDA Start: 05-07-2007 MULTI LINK HEART STENT;CORDIS CYPHER STENT X 2 FDA Start: 05-07-2007 MULTI LINK HEART STENT;CORDIS CYPHER STENT X 2 FDA Start: 05-07-2007 MULTI LINK HEART STENT;CORDIS CYPHER STENT X 2 FDA Start: 05-07-2007 MULTI LINK HEART STENT;CORDIS CYPHER STENT X 2 FDA Start: 05-07-2007 MULTI LINK HEART STENT;CORDIS CYPHER STENT X 2 FDA Start: 05-07-2007 MULTI LINK HEART STENT;CORDIS CYPHER STENT X 2 FDA Start: 05-07-2007 MULTI LINK HEART STENT;CORDIS CYPHER STENT X 2 FDA Start: 05-07-2007 MULTI LINK HEART STENT;CORDIS CYPHER STENT X 2 FDA Start: 05-07-2007 MULTI LINK HEART STENT;CORDIS CYPHER STENT X 2 FDA Start: 05-07-2007 MULTI LINK HEART STENT;CORDIS CYPHER STENT X 2 FDA Start: 05-07-2007 MULTI LINK HEART STENT;CORDIS CYPHER STENT X 2 FDA Start: 05-07-2007 MULTI LINK HEART STENT;CORDIS CYPHER STENT X 2 FDA Start: 05-07-2007 MULTI LINK HEART STENT;CORDIS CYPHER STENT X 2 FDA Start: 05-07-2007 MULTI LINK HEART STENT;CORDIS CYPHER STENT X 2 FDA Start: 05-07-2007 MULTI LINK HEART STENT;CORDIS CYPHER STENT X 2 FDA Start: 05-07-2007 MULTI LINK HEART STENT;CORDIS CYPHER STENT X 2 FDA Start: 05-07-2007 MULTI LINK HEART STENT;CORDIS CYPHER STENT X 2 FDA Start: 05-07-2007 MULTI LINK HEART STENT;CORDIS CYPHER STENT X 2 FDA Start: 05-07-2007 MULTI LINK HEART STENT;CORDIS CYPHER STENT X 2 FDA Start: 05-07-2007 MULTI LINK HEART STENT;CORDIS CYPHER STENT X 2 FDA Start: 05-07-2007 Mildred Taper 5.5 mm Suture Quattro X Uhmwpe Peek 1 Row [id number] Start: 03-09-2021 Mildred Taper 5.5 mm Suture Quattro X Uhmwpe Peek 1 Row [id number] Start: 03-09-2021 Mildred Taper 5.5 mm Suture Quattro X Uhmwpe Peek 1 Row [id number] Start: 03-09-2021 Mildred Taper 5.5 mm Suture Quattro X Uhmwpe Peek 1 Row [id number] Start: 03-09-2021 MULTI LINK HEART STENT;CORDIS CYPHER STENT X 2 FDA Start: 05-07-2007 MULTI LINK HEART STENT;CORDIS CYPHER STENT X 2 FDA Start: 05-07-2007 MULTI LINK HEART STENT;CORDIS CYPHER STENT X 2 FDA Start: 05-07-2007 MULTI LINK HEART STENT;CORDIS CYPHER STENT X 2 FDA Start: 05-07-2007 MULTI LINK HEART STENT;CORDIS CYPHER STENT X 2 FDA Start: 05-07-2007 MULTI LINK HEART STENT;CORDIS CYPHER STENT X 2 FDA Start: 05-07-2007 MULTI LINK HEART STENT;CORDIS CYPHER STENT X 2 FDA Start: 05-07-2007 MULTI LINK HEART STENT;CORDIS CYPHER STENT X 2 FDA Start: 05-07-2007 MULTI LINK HEART STENT;CORDIS CYPHER STENT X 2 FDA Start: 05-07-2007 MULTI LINK HEART STENT;CORDIS CYPHER STENT X 2 FDA Start: 05-07-2007 MULTI LINK HEART STENT;CORDIS CYPHER STENT X 2 FDA Start: 05-07-2007 MULTI LINK HEART STENT;CORDIS CYPHER STENT X 2 FDA Start: 05-07-2007 MULTI LINK HEART STENT;CORDIS CYPHER STENT X 2 FDA Start: 05-07-2007 MULTI LINK HEART STENT;CORDIS CYPHER STENT X 2 FDA Start: 05-07-2007 MULTI LINK HEART STENT;CORDIS CYPHER STENT X 2 FDA Start: 05-07-2007 MULTI LINK HEART STENT;CORDIS CYPHER STENT X 2 FDA Start: 05-07-2007 MULTI LINK HEART STENT;CORDIS CYPHER STENT X 2 FDA Start: 05-07-2007 MULTI LINK HEART STENT;CORDIS CYPHER STENT X 2 FDA Start: 05-07-2007 Goals Date Patient Goal Desired Activity /State Mental Status Date Assessment Result Facility 10-16-2023 Cognitive function Voice/Name [facility] Work Phone: 11-06-2022 Cognitive function Touch/Shaking [facility] Work Phone: 02-01-2022 Cognitive function Voice/Name [facility] Work Phone: 10-20-2021 Cognitive function Level Of Cons ciousness Awake;Alert;Appropriate;Follow s Commands [facility] Work Phone: Clinical Notes 06-18-2020 to 05-12-2025 Note Date & Type Note Facility 05-12-2025 Progress note [facility] 05-06-2025 Evaluation note Diagnosis Onset Date Resolution Bilateral lower extremity edema acute May 06, 2025 9:56am Lymphedema acute May 06, 2025 9:56am Venous insufficiency acute May 06, 2025 9:56am Bilateral lower extremity edema acute May 12, 2025 8:55am Diabetes mellitus chronic May 12, 2025 8:55am Essential (primary) hypertension chronic May 12, 2025 8:55am History of coronary artery stent placement June 18, 2020 chronic May 12, 2025 8:55am Hyperlipidemia chronic May 122024 8:55am [facility] Work Phone: 1(407) 122-359004-10-2025 Evaluation note* Diagnosis Onset Date Resolution Status Admit Date Dyspnea on exertion acute November 06, 2024 10:00am NAFLD (nonalcoholic fatty liver disease) acute November 06, 2024 10:00am P-ANCA titer positive acute Apr 2024 10:00am Diarrhea chronic November 06 10:00am [facility] Work Phone: 1(963) 574-968104-10-2025 Evaluation note* Diagnosis Onset Date Resolution Status Admit Date Dyspnea on exertion acute November 06, 2024 10:00am NAFLD (nonalcoholic fatty liver disease) acute November 06, 2024 10:00am P-ANCA titer positive acute Apr 2024 10:00am Diarrhea chronic November 06 10:00am Diabetes mellitus chronic October 282024 10:07am Essential (primary) hypertension chronic November 13, 2024 10:07am History of coronary artery stent placement June 18, 2020 chronic November 13, 2024 10:07am Hyperlipidemia chronic October 10:07am [facility] Work Phone: 1(677) 602-912703-19-2024 Procedure [facility] 10-16-2023 Procedure [facility]04-10-2023 Procedure note [facility]04-10-2023 Procedure [facility] 06-18-2022 Evaluation note* Diagnosis Onset Date Resolution Status Atrophic vaginitis acute Encounter for routine gyneco logical examination noneactive COVID-19 acute Essential (primary) hypertension chronic History of coronary artery stent placement June 182019 chronic Hyperlipidemia chronic NAFLD (nonalcoholic fatty liver disease) acute P-ANCA titer positive acute Diarrhea chronic Dyspnea on exertion acute Essential (primary) hypertension chronic History of coronary artery stent placement June 182019 chronic Hyperlipidemia chronic [facility] Work Phone: 1(201) 424-564302-24-2022 NoteHNO ID: [id number] Author: Christina Fischer MD Service: ? Author Type: Physician Type: Progress Notes Filed: 09/22/2021 8:10 AM Note Text: Patient: Korin Harper : 1950 Date of Surgery: 03/09/21 Procedure(s): Right hip gluteus medius repair, open (77868), with primary repair fixation (15802) Latrell's gluteus stephen/ tensor fascia pierre transfer: Right hip/ thigh transplant/ transfer multiple thigh tendons (65797) Hip greater trochanteric bursectomy (31677) Application of rehabilitation brace under anesthesia [25626] HPI: Korin Harper is a 70 year old female who presents s/p Right open abductor repair. The pain has improved since surgery. The patient denies wound healing difficulty, fevers, or chills. Walking into clinic without assistive device. DVT prophylaxis/ Analgesic Medication: See medication list Review of Systems, Past Medical History, Past Surgical History, Family History, and Social History: Reviewed and charted into [facility]. Allergies: Cat Scan Dye [Other], Levaquin [Levofloxacin], [...] patient was pleased with the plan of care.[facility]02-21-2022 NoteHNO ID: [id number] Author: RT Jocelyn(Asa) Service: Nuclear Medicine Author Type: Technologist Type: [...] BY: RT Jocelyn(R) September 19, 2021 2:53 [facility]09-23-2021 NoteHNO ID: [id number] Author: Christina Fischer MD Service: ? Author Type: Physician Type: Progress Notes Filed: 04/21/2021 10:12 AM Note Text: Post-Op Visit Patient: Korin Harper : 1950 Date of Surgery: 03/09/2021 Procedure(s): Right hip gluteus medius repair, open (00435), with primary repair fixation (56428) Medusa's gluteus stephen/ tensor fascia pierre transfer: Right hip/ thigh transplant/ transfer multiple thigh tendons (44833) Hip greater trochanteric bursectomy (03418) Application of rehabilitation brace under anesthesia [54799] HPI: Korin Harper is a 70 year old female who presents s/p Right open abductor repair. The pain has improved since surgery. The patient denies wound healing difficulty, fevers, or chills. DVT prophylaxis/ Analgesic Medication: See medication list Review of Systems, Past Medical History, Past Surgical History, Family History, and Social History: Reviewed and charted into [email or web address]. Allergies: Cat Scan Dye [Other], Levaquin [Levofloxacin], [...] following vitals signs: Ht 154.9 cm (5' 1) Wt 83.9 kg (185 lb) BMI 34.96 [...] patient was pleased with the plan of care.[facility]08-26-2021 NoteHNO ID: [id number] Author: EVA Morrison Service: ? Author Type: Registered Nurse Business Intelligence Manager Type: Progress Notes Filed: 03/25/2021 8:26 AM Note Text: Right gluteus repair 2 week post op Doing well Ambulates with w/c Pain 0/10 Incision looks very good Physical Therapy going well Cast tech in to adjust brace for comfort Follow up at 6 week [address] op [address] Dr Fischer [facility] NoteHNO ID: [id number] Author: Jeevan Rea MD Service: Orthopaedic Surgery [...] outlined by the State Medical Board of [place]. A prescription was thus provided that exceeds the 30 MED average limit due to greater than usual pain secondary to major orthopaedic surgery. Every effort will be made to de-escalate the patient's opioid use while providing an appropriate level of postoperative pain management. SIGNATURE: Jeevan Rea MD PATIENT NAME: Korin Harper DATE: March 10, 2021 TIME: 6:13 AM [facility] HNO ID: [id number] Author: Almas Arriola MA Service: ? Author Type: ? Type: Progress Notes Filed: 01/03/2021 9:45 AM Note Text: PT ASSESSMENT - CASTING ROOM Korin presents for Application of brace. Applied Donjoy Versa Rom hip brace to right leg. Patient has been instructed in Almas Arriola [facility]06-07-2021 NoteHNO ID: [id number] Author: Christina Fischer MD Service: ? Author [...] low cervical - COLONOSCOP W/ OR W/O BRSH SPEC normal colonscopy, few diverticula - COLONOSCOPY [...] Review of Systems: Reviewed and charted into [email or web address]. Physical Exam: PE reveals a female with the following vitals signs: Wt 84.4 kg (186 lb) BMI 35.14 kg/m? Body mass index is 35.14 kg/m?. General appearance: Well appearing, alert, in no acute distress, well-hydrated, well nourished. Psych: Mo (more content not included)...[facility]06-04-2021 NoteHNO ID: [id number] Author: RT Martha(R) Service: ? Author Type: Purchasing Administrative Assistant Type: Progress Notes Filed: 12/31/2020 10:45 AM [...] BY: RT Martha(R) December 31, 2020 10:33 [facility]04-06-2021 NoteHNO ID: [id number] Author: Jesus Cruz (Tech) Service: ? Author Type: Purchasing Administrative Assistant Type: Progress Notes Filed: 11/02/2020 6:26 PM [...] BY: Jesus Cruz November 02, 2020 6:26 [facility]11-20-2020 Evaluation note* Diagnosis Onset Date Resolution Status Essential (primary) hypertension chronic History of coronary artery stent placement June 182019 chronic Hyperlipidemia chronic Abdominal pain acute Fatty liver acute GERD (gastroesophageal reflux disease) acute Nausea acute Diabetes mellitus chronic History of Velazquez's esophagus [facility] Work Phone: [phone]) 117-351711-20-2020 Evaluation note* Diagnosis Onset Date Resolution Status Encounter for pre-operative cardiovascular clearance acute Essential (primary) hypertension chronic History of coronary artery stent placement June 182019 chronic Hyperlipidemia chronic Diarrhea acute Fatty liver acute GERD (gastroesophageal reflux disease) acute [facility] Work Phone: 1(768) 327-865511-20-2020 Evaluation note* Diagnosis Onset Date Resolution Status COVID-19 acute Essential (primary) hypertension chronic History of coronary artery stent placement June 182019 chronic Hyperlipidemia chronic NAFLD (nonalcoholic fatty liver disease) acute P-ANCA titer positive acute Diarrhea chronic Dyspnea on exertion acute Essential (primary) hypertension chronic History of coronary artery stent placement June 182019 chronic Hyperlipidemia chronic [facility] Work Phone: 1(538) 881-341511-20-2020 Evaluation note* Diagnosis Onset Date Resolution Status Essential (primary) hypertension chronic History of coronary artery stent placement June 182019 chronic Hyperlipidemia chronic NAFLD (nonalcoholic fatty liver disease) acute P-ANCA titer positive acute Diarrhea chronic Dyspnea on exertion acute Essential (primary) hypertension chronic History of coronary artery stent placement June 182019 chronic Hyperlipidemia chronic Dyspnea on exertion acute Essential (primary) hypertension chronic History of coronary artery stent placement June 182019 chronic Hyperlipidemia [facility] Work Phone: 1([phone] 595-134611-20-2020 Evaluation note* Diagnosis Onset Date Resolution Status Dyspnea on exertion acute Essential (primary) hypertension chronic History of coronary artery stent placement June 182019 chronic Hyperlipidemia chronic Dyspnea on exertion acute Essential (primary) hypertension chronic History of coronary artery stent placement June 182019 chronic Hyperlipidemia chronic Retained food in stomach acu te Neck strain acute [facility] Work Phone: 1(810) 701-199511-20-2020 Evaluation note* Diagnosis Onset Date Resolution Status Dyspnea on exertion acute Essential (primary) hypertension chronic History of coronary artery stent placement June 182019 chronic Hyperlipidemia chronic Retained food in stomach acu te Neck strain acute [facility] Work Phone: 1([phone]) 311-583311-20-2020 Evaluation note* Diagnosis Onset Date Resolution Status Retained food in stomach acu te Neck strain acute Essential (primary) hypertension chronic History of coronary artery stent placement June 182019 chronic Hyperlipidemia [facility] Work Phone: [phone]) 626-485711-20-2020 Evaluation note* Diagnosis Onset Date Resolution Status Dyspnea on exertion acute Essential (primary) hypertension chronic History of coronary artery stent placement June 182019 chronic Hyperlipidemia [facility] Work Phone: 1([phone] 349-865211-20-2020 Evaluation note* Diagnosis Onset Date Resolution Status Dyspnea on exertion acute Essential (primary) hypertension chronic History of coronary artery stent placement June 182019 chronic Hyperlipidemia chronic Dyspnea on exertion acute NAFLD (nonalcoholic fatty liver disease) acute P-ANCA titer positive acute Diarrhea [facility] Work Phone: Evaluation + Plan note No data available for this section [facility] Evaluation note* Diagnosis Onset Date Resolution Status Abdominal pain acute Fatty liver acute GERD (gastroesophageal reflux disease) acute Nausea acute Diabetes mellitus chronic History of Velazquez's esophagus [facility] Work Phone: Evaluation note* Diagnosis Onset Date Resolution Status Abdominal pain acute Fatty liver acute GERD (gastroesophageal reflux disease) acute Nausea acute Diabetes mellitus chronic History of Velazquez's esophagus chronic Abdominal pain acute Fatty liver acute GERD (gastroesophageal reflux disease) acute P-ANCA titer positive acute [facility] Work Phone: Evaluation note* Diagnosis Onset Date Resolution Status Diarrhea chronic Fatty liver chronic GERD (gastroesophageal reflux disease) chronic Atrophic vaginitis acute Encounter for routine gyneco logical examination noneactive COVID-19 acute Essential (primary) hypertension chronic History of coronary artery stent placement June 182019 chronic Hyperlipidemia chronic [facility] Work Phone: Evaluation note* Diagnosis Onset Date Resolution Status Diarrhea chronic Fatty liver chronic GERD (gastroesophageal reflux disease) chronic Atrophic vaginitis acute Encounter for routine gyneco logical examination noneactive COVID-19 acute Essential (primary) hypertension chronic History of coronary artery stent placement June 182019 chronic Hyperlipidemia chronic NAFLD (nonalcoholic fatty liver disease) acute P-ANCA titer positive acute Diarrhea [facility] Work Phone: Evaluation note* Diagnosis Onset Date Resolution Status NAFLD (nonalcoholic fatty liver disease) acute P-ANCA titer positive acute Diarrhea [facility] Work Phone: Evaluation note* Diagnosis Pre-operative examination- Primary Preoperative examination, unspecified Arteriosclerosis of coronary artery Coronary atherosclerosis of unspecified type of vessel, upper sioux or graft Hypercholesteremia Pure hypercholesterolemia PVC (premature ventricular contraction) Other premature beats Gastroesophageal reflux disease, unspecified whether esophagitis present TOYIN (obstructive sleep apnea) Obstructive sleep apnea (adult) (pediatric) Frequent UTI Urinary tract infection, site not specified Hypothyroidism, unspecified type Type 2 diabetes mellitus without complication, without long-term current use of insulin ([facility]) Class 1 obesity due to excess calories with serious comorbidity and body mass index (BMI) of 34.0 to 34.9 in adult Tear of right gluteus medius tendon, initial encounter documented in this encounter [facility] noteNo assessment information availableWPark[facility] Work Phone: History and physical note Author Bakari Friend [facility] November 06, 2022 9:13am Note Date/Time November 06, 2022 9:1 3am [facility] Medical Records Department [address] [place] [address] History & Physical Exam 11/06/2212 MR#: [id number] Acct: [id number] Name: KORIN HARPER Rep #:[id number] : 1950 72 From: Bakari Matthews DO PCP: Dr. Galina Tavarez, DO [place] [place]: [place] [address] History and Physical Date of Admission: 11/06/22 1 F who presents to the office today for 3 month f/u GERD, NAFLD, diarrhea Tried white diet per Dr Matthews's recommendation, found it difficult but she ispaying attn to her carbs, has increased fiber, decreased simple carbs. She doesn't want weight loss medication. Hgb A1c decreased to 7.3, she was taken offinsulin. GERD -- stable on PPI omeprazole 40 mg daily Diarrhea -- stable, she is satisfied with current bowel pattern. Has occas urgent diarrhea, not bothersome at this time. Dr Matthews notes fecal incontinencedue to rectal prolapse is a lot of the issue with her diarrhea. NAFLD -- F1-F2 by FIB-4 calculation. Elastography 11/04/21 7.1 kPa. Takes ursodiolbid. Positive atypical p-ANCA. [facility] Rheum wouldn't see her. Abd pain -- she had multiple areas of abd pains, we had her resume gabapentin 300 mg bid in 11/2021 (took it for pain behind left knee). No c/o abd pain today. Korin established with this clinic .11.18 following [facility] ED presentation 10.20.21 with epigastric/upper abdominal pain, nausea and decreased appetite. Biochemicalworkup, EKG and CT scan performed without acute finding and she was discharged home with Zofran. HIDA Scan 10.07.21 with normal physiologic gallbladder response. US RUQ . liver measurement 17cm with fatty infiltration; negative Thibodeaux?ssign; normal pancreas. CT abd/pel 10.20.21 noting hepatic steatosis; hypodense renal nodule; uterine fibroid; asymmetrical atrophy of right iliopsoas muscle. Gastric emptying study 11.08.21 is 30% at 30 minutes, normal. EGD and colonoscopy .01.18. EGD found irregular Zline 37cm from incisors; three gastric hyperplastic polyps; erythematous antrum, gastritis, and duodenopathy. H.Pylori negative. Colonoscopy found diverticulosis of RS, sigmoid and descending colons; congestedmucosa of sigmoid colon; three 1-2mm TA polyps, removed; rectal prolapse. Repeatin 01/2025. ROS Const Constitutional: No fatigue ENT ENT: No difficulty swallowing Gastro GI: No abdominal pain, belching, bloating, change in bowel habits, change in stool character, coffee ground emesis, constipation, cramping, diarrhea, heartburn, difficulty swallowing, feeling full early, excessive flatus, incontinent of stools, Vomiting blood/hematemesis, Blood in stool, loose stools,Black,tarry stools, nausea/dyspepsia, pain with swallowing, vomiting or other Musc Musculoskeletal: Positive for joint pain, stiffness and Arthritis Skin Skin: No yellowing of the eye or itchy eyes Psych Psychiatric: No anxiety and No depression Endo Endocrine: No fatigue Aller/Imm Allergy/Immunologic: No itchy eyes Henok/Lymp Hematologic/Lymphatic: Positive for easy bruising; No easy bleeding Exam Const General: cooperative, healthy appearing and comfortable Orientation: alert, awake and oriented x3 Quality Reporting Tobacco Screening ([facility] 138) Smoking Status: Never smoker Assessment and Plan Assessment and Plan (1) NAFLD (nonalcoholic fatty liver disease): ?Status:?Acute ?Plan: Due to DM, obesity. Update liver elastography. She is on ursodiol bid. f/u 6 mos? (2) P-ANCA titer positive: ?Status:?Acute ?Plan: Repeat lab [facility] Rheum declined to see her (3) Diarrhea: ?Status:?Chronic ?Plan: Not currently problematic Fecal incontinence due to rectal prolapse is part of the issue, but not overly bothersome Better with increased fiber in diet ? ? ? Orders: Orders Abdomen Limited Today K76.0 - Fatty (change of) liver, not elsewhere classified ? Elastography Parenchyma/Organ Today K76.0 - Fatty (change of) liver, not elsewhere classified ? ANCA Today R76.8 - Other specified abnormal immunological findings in serum ? Medications: Refilled ursodiol 250 mg? PO BID 180 tabs 1RF fatty liver ? ? I have examined the patient and the H&P has been reviewed. There are no clinicalchanges since date of exam. 11/06/22 0182 <Electronically signed by Bakari Friend > Cosigner Signature (if applicable): CC: Dr. Galina Tavarez, DO; Bakari Matthews, DO~ Signed [facility] Work Phone: History and physical note Author Bakari Matthews [facility] October 16, 2023 4:28pm Note Date/Time October 16, 2023 4:2 8pm [facility] Medical Records Department [address] [place] [address] History & Physical Exam 10/16/23 1627 MR#: [id number] Acct: [id number] Name: KORIN HARPER Rep #:[id number] : 1950 73 From: Bakari Matthews DO PCP: Dr. Galina Tavarez, Status[place] Location: [place] [address] History and Physical Date of Admission: 10/16/23 KORIN HARPER, is a 72 F who presents to the office today for follow up. [facility] ED? *[facility] established 4.. as ED f/u. She has several abdominal pains: lower abdominal cramping; mid abdominal sharp pain; RUQ/epigastric tenderness that alloccur frequently. One episode of loose stools lasting for 24hours following ingestion of a salad. BM are typically normal 3-4 soft BM/day.?Biochemical 4.4.22?ESR, CRP, LDH, LENCHO, haptoglobin, A1c, ferritin, coag, VITALIY comp, AMA, ASM, hepatitis, HIV without pertinent abnormality.? AST H53-ALT H84-AP H37, ceruloplasmin L18.3, apANCA H1:40?Elastography 4.8.22?stiffness 7.1kPa?GET 4.12.22?WNL?Biochemical 4..22?GGT WNL? IgG L502, IgG2 L124, IgE L2? OV 5..22 refer to [facility] rheumatology for low-positive apANCA; possible MRCP?EGD and colonoscopy 02.01.22?EGD irregular Zline 37cm; three 5mm hyperplastic gastric polyps; gastritis; duodenitis.? Colonoscopy diverticulosis; congested mucosa three polyps; rectalprolapse. No path changes? OV 02.15.22 continue ongoing management of DMII for NAFLD; GERD well controlled with PPI; start fiber? OV 05.01.22 loose stools have improved with dairy reduction and increased fiber. Reduce carbohydrate intake.? OV 08.02.22 continue ursodiol use. Rheumatology declined to see her.?Biochemical 08.02.22?T4 WNL? apANCA H1:160, TSH H5.38, T3 L1.8?US and elastography 08.14.22?hepatic measurement 16.7cm fatty infiltration, stiffness 6.1kPa?EGD 11.06.22?non-severe esophagitis; small amount of food in gastric body and duodenum; gastritis.? OV 11.14.22 possible update GET if symptoms return.?US and elastography 8.02.18?hepatic measurement 14.7cm with fatty infiltration, stiffness 7.8kPa? OV 05.15.23 Pt stable since last visit. Has established care with Rheumatology Dr. Good. Has not had any issues swallowing or choking episodes. Heartburn under control. BM normal. Continues meds prescribed by this clinic. ROS Const Constitutional: No fatigue ENT ENT: No difficulty swallowing Gastro GI: No abdominal pain, belching, bloating, change in bowel habits, change in stool character, coffee ground emesis, constipation, cramping, diarrhea, heartburn, difficulty swallowing, feeling full early, excessive flatus, incontinent of stools, Vomiting blood/hematemesis, Blood in stool, loose stools,Black,tarry stools, nausea/dyspepsia, pain with swallowing, vomiting or other Musc Musculoskeletal: Positive for abnormal gait, joint pain, joint swelling, muscle weakness, stiffness and Arthritis Skin Skin: No yellowing of the eye or itchy eyes Neuro Neurology: Positive for abnormal gait Psych Psychiatric: No anxiety and No depression Endo Endocrine: No fatigue Aller/Imm Allergy/Immunologic: No itchy eyes Henok/Lymp Hematologic/Lymphatic: Positive for easy bruising; No easy bleeding Exam Const General: cooperative and healthy appearing [facility] Head: normocephalic and atraumatic Ears: hearing grossly normal bilaterally Nose: external nose normal Face and sinus: normal facial exam and face symmetric Mouth: oral mucosae normal Throat: posterior oropharynx normal Neck Neck: full ROM and no lymphadenopathy Other: Palpable muscle spasms and pain left trapezius with no obvious deformity upon palpation. Resp Effort & Inspection: normal respiratory effort Skin General: no rashes or lesions noted Neuro General: patient alert Psych Appearance: grossly normal Mental Status: mental status grossly normal Quality Reporting Tobacco Screening ([facility] 138) Smoking Status: Never smoker Assessment and Plan Assessment and Plan (1) NAFLD (nonalcoholic fatty liver disease): Status: Acute Plan: Due to DM, obesity. liver elastography displays 8.3KPA. This is stable. Ultrasound displays that theliver is smaller at 16cm. Discussed weight loss options and healthy eating, along with blood sugar control. Last HgbA1c was in the 7's. She is on ursodiol bid. f/u 6 mos (2) P-ANCA titer positive: Status: Acute Plan: Repeat lab Follow up with rheumatology> (3) Diarrhea: Status: Chronic Qualifiers: Diarrhea type: functional diarrhea Qualified Code(s): K59.1 - Functional diarrhea Plan: Not currently problematic Fecal incontinence due to rectal prolapse is part of the issue, but not overly bothersome Better with increased fiber in diet 10/16/23 [id number] <Electronically signed by Bakari Matthews DO> Cosigner Signature (if applicable): CC: Dr. Galina Tavarez DO; Bakari Matthews, DO~ Signed [facility] Work Phone: Hospital Discharge instructions No data available for this section [facility] Progress note No data available for this section [facility] Progress note Author Guerita Mendez [facility] Note Date/Time May 12, 2025 9 :30am [facility] [address] [place] [address] OFFICE VISIT Date of Service: 05/12/25 MR#: [id number] Acct: [id number] Name: KORIN HARPER Rep #: [id number] : 1950 Provider: ROBERT Mendez Age/Sex: 74/F Location: [facility] Status: Signed HPI HPI History of Present Illness Details: KORIN HARPER, is a 74 F who presents to the office today for a cardiovascular outpatient follow-up. She has a history of coronary artery disease status status post drug-eluting stent to LCx and LAD in April 2007, drug-eluting stent to mid RCA on 06/18/2020, hypertension, hyperlipidemia, diabetes type II, and TOYIN with CPAP therapy. She denies chest, arm, jaw, or neck discomfort. She denies palpitations. She states bilateral lower extremity edema. She denies claudication. She states shortness of breath with activity when in a hurry. She can do similar activity and distance at a slower pace without shortness of breath. She denies shortnessof breath at rest, orthopnea, or PND. She denies chronic cough. She denies significant, sudden weight gain. She denies lightheadedness, dizziness, near-syncope, or syncope. She denies blood in urine, blood in stool, or epistaxis. He denies fever with chills. She denies myalgia. She denies fatigue. Her exercise level has remained stable, but she ambulates at a slow pace. 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 Is patient in pain?: No Allergies hydrocodone bitartrate (From Vicodin) Allergy (Verified 05/12/25 08:59) Itching Iodinated Contrast Media Allergy (Verified 05/12/25 08:59) Anaphylaxis codeine Adverse Reaction (Severe, Verified 05/12/25 08:59) Unknown esomeprazole (From Nexium) Adverse Reaction (Severe, Verified 05/12/25 08:59) Causes elevated LFTs Sulfa (Sulfonamide Antibiotics) Adverse Reaction (Severe, Verified 05/12/25 08:59) Causes elevated LFTs levofloxacin (From Levaquin) Adverse Reaction (Verified 05/12/25 08:59) Nausea/Vom/Diarrhea Niacin Preparations Adverse Reaction (Verified 05/12/25 08:59) Other Medications ?Medication ?Instructions ?Recorded ?Confirmed ?Type nitroglycerin 0.4 mg sublingual 0.4 mg sublingual Q5-1 5M PRN chest 06/16/20 05/12/25 Rx tablet pain #25 tabs omeprazole 40 mg capsule,delayed 40 mg PO DAILY 05/12/25 History release allopurinol 100 mg tablet 100 mg PO DAILY 03/07/21 History ipratropium bromide 42 mcg (0.06 2 spray intranasal ME N PRN Runny 07/12/21 05/12/25 History %) nasal spray Nose Lactobacillus acidophilus 10 10,000 mmu cells PO DAILY 01/26/22 05/12/25 History billion cell capsule (Probiotic) ascorbic acid (vitamin C) 500 mg 500 mg PO DAILY 01/2605/12/25 History tablet (Vitamin C) fiber 2 tab PO DAILY 10/31/2204/29 History liothyronine 5 mcg tablet 5 mcg PO DAILY 10/31/2204/29 History triamcinolone acetonide 0.1 % 1 applic topical BID PRN pain 01/23/23 05/12/25 History topical cream acetaminophen 650 mg 1,300 mg PO Q12H 10/02/23 History tablet,extended release d-mannose 500 mg capsule (AZO 500 mg PO DAILY 10/02/23 05/12/25 History D-Mannose) vitamin E (dl, acetate) 180 mg 180 mg PO DAILY 4 05/12/25 History (400 unit) capsule estradiol 0.01% (0.1 mg/gram) 1 g vaginal 3XW 01/04/24 05/12/25 History vaginal cream (Estrace) metformin 500 mg tablet,extended 500 mg PO BID 4 05/12/25 History release 24 hr levothyroxine 125 mcg capsule 125 mcg PO QDAY 05/15/24 05/12/25 History ursodiol 250 mg tablet 250 mg PO BID 90 days #180 T ABLETS 05/15/24 05/12/25 Rx colestipol 1 gram tablet 1 g PO TID #180 tabs 5 05/12/25 Rx gabapentin 300 mg capsule 300 mg PO BID 11/06/2405/12 History glipizide 10 mg tablet, extended 10 mg PO BID 11/13/24 05/12/25 History release 24 hr pioglitazone 15 mg tablet 15 mg PO QDAY 11/13/2405/12 History hydrochlorothiazide 25 mg tablet 25 mg PO DAILY #90 ta bs 02/06/25 05/12/25 Rx metoprolol tartrate 100 mg tablet 100 mg PO BID #180 t abs 02/06/25 05/12/25 Rx rosuvastatin 20 mg tablet 20 mg PO QHS #90 tabs 05/12/25 Rx amlodipine 5 mg tablet 5 mg PO DAILY #90 tabs 03/0405/12/25 Rx losartan 50 mg tablet 50 mg PO DAILY #90 tabs 01/2105/12/25 Rx fenofibrate micronized 200 mg 200 mg PO QPM #90 caps 0 03/31/25 05/12/25 Rx capsule furosemide 40 mg tablet (Lasix) 40 mg PO QDAY 05/06/25 05/12/25 History potassium chloride 20 mEq 20 meq PO QDAY 05/06/2503/23 History tablet,extended release aspirin 81 mg chewable tablet 81 mg PO QDAY 05/12/25 1 History Ejection fraction %: 65 Have you fallen in the past year?: No PFSH Medical History History of echocardiogram Ambulates with cane Wears glasses Post-menopausal Thyroid disease High cholesterol Excessive bleeding Easy bruising Dietary restriction Gastric reflux Non-smoker CPAP (continuous positive airway pressure) dependence Sleep apnea Leg cramps History of edema History of stress test Hypertension Cardiology follow-up encounter Obesity P-ANCA titer positive Nausea Atrophic vaginitis History of Velazquez's esophagus Essential (primary) hypertension Lumbar disc disease Hyperlipidemia History of OR (myocardial infarction) Leg pain Leg edema Abnormal biliary HIDA scan Abdominal pain Diarrhea Back pain Dermatitis due to sun Arthritis Hypothyroidism Syncope and collapse Premature ventricular contractions Dizziness Diabetes mellitus Dyspnea, unspecified Cough Atherosclerosis of coronary artery of upper sioux heart without angina pectoris Surgical History S/P trigger finger release History of cardiac catheterization Hx of shoulder surgery Status post tendon reattachment History of hip surgery History of left heart catheterization (06/04/12) History of bilateral cataract extraction History of foot surgery History of carpal tunnel release of both wrists back injection History of knee replacement History of coronary artery stent placement (06/18/20) Family History Mother Diabetes Heart disease Social History Smoking Status: Never smoker alcohol intake: current alcohol intake frequency: holidays/special occasions only Alcohol type: wine substance use type: does not use caffeine: Yes Type: coffee Number of servings: 1 what type of physical activity do you participate in: none seatbelt use: always do you feel safe at home: Yes additional social history: -Terry Patient is retired ROS Const Const: Negative for fatigue, weakness, headache(s) or frequent falls Eyes Eyes: Negative for blurry vision ENT ENT: Negative for headache(s), dizziness or Nosebleed/epistaxis Cardio Chest Pain: No Palpitations: No Edema: Bilateral Muscle aches with walking: None Resp Respiratory: Positive for SOB with activity; Negative for SOB at rest or SOB orthopnea\SOB lying down GI GI: Negative nausea, vomiting, heartburn, bright, red blood in stools or black,tarry stools : Negative for hematuria Musc Musc: Negative for muscle aches/ myalgia Skin Skin: Negative non-healing lesions or rash Neuro Neuro: Negative for dizziness, lightheadedness, near syncope, syncope, frequent falls, headache(s), weakness or blurry vision Endo Endo: Negative for fatigue Allergy Allergy/Immunology: Negative for rash Cardiology Exam Const Appearance: cooperative, healthy appearing, comfortable and no acute distress Nutritional Appearance: well nourished and obese Orientation: alert, awake and oriented x3 Head Head: normal to inspection Ears: hearing grossly normal bilaterally Nose: external nose normal Face and Sinus: face symmetric Mouth: moist mucous membranes Eyes General: appearance normal, both eyes and all related structures Eyelids: eyelids normal EOM: EOM intact bilaterally Neck Neck: normal visual inspection and no JVD Carotids: normal carotid upstroke Chest Chest inspection: normal inspection of the chest, symmetric chest movement and normal respiratory effort; Negative cough Auscultation: Bilateral: Clear to Auscultation Cardio Rate: regular rate Rhythm: regular rhythm Heart sounds: S1 normal and S2 normal; Negative rub, gallop or murmur GI GI: normal to inspection and obese Neuro General: patient alert, patient awake, patient oriented x3 and CN's II-XI intactbilaterally Skin Skin: no rashes or lesions noted Extremities Pulses: Normal: Right Posterior Tibial Pulse, Left Posterior Tibial Pulse, RightRadial Pulse and Left Radial Pulse Lower Extremity Edema: Trace: Bilateral Psych Psychological: normal affect Supplemental Info Supplemental Information Echocardiogram from 10/09/2022: Interpretation Summary Normal LV size. Left ventricular systolic function is normal. The estimated ejection fraction is 65 %. Stage 1 diastolic dysfunction. Stress test from 10/30/2023: Conclusion: Normal pharmacologic myocardial perfusion stress test. Preserved ejection fraction. CARDIAC CATHETERIZATION/INTERVENTION 06/18/2020 CORONARY ANGIOGRAPHY DOMINANCE: Right Dominant LEFT HEART ASSESSMENT Left Ventricular Ejection Fraction: by LV Gram 60 % Normal LV wall motion Normal Left Ventricular systolic function LEFT MAIN: Angiographically normal LEFT ANTERIOR DESCENDING ARTERY: PROX LAD: Previously placed stent is patent DIAGONAL 1: Proximal - Previously placed stent has an instent 30 % restenosis CIRCUMFLEX ARTERY: PROX CIRC: Previously placed stent has an instent 20 % restenosis RIGHT CORONARY ARTERY: MID RCA: 95 % Stenosis CONCLUSIONS Successful PCI with CYRIL to mRCA Labs: LDL Cholesterol, (0-130) 49 mg/dL HDL Cholesterol, (40-) 40 mg/dL Cholesterol, (<=200) 120 mg/dL Triglycerides, (-199) 205 mg/dL H Diagnostics: Electrocardiogram Echocardiogram Stress Test Stress Test Nuclear Medicine Cardiac Catheterization Cardiac Intervention Chest X-Ray Abdomen Ultrasound Abdomen/Pelvis CT Venous Doppler Study Past Visits: Cardiology Visit Today Assessment and Plan Assessment and Plan (1) History of coronary artery stent placement: Status: Chronic Comment: PCI-CYRIL-Mid LCx w/ 3.0 x 18 mm Cypher Stent, BMS-Ramus w/ 2.25 x 12 mm Multi Link Vision Stent, CYRIL-Mid LAD w/ 2.5 x 18 mm Cypher Stent, POBA-D2 05/07/2007; PCI-CYRIL-Mid RCA 3.0 x 16 mm Synergy Stent 06/18/2020 Plan: Stress test on 10/30/2023 was negative for ischemia and showed a preserved ejection fraction. Echocardiogram in September 2022 showed ejection fraction of 65%is no significant valvular abnormality. This appears stable. We will continue to monitor and not make any medication regimen changes. We will continue to promote risk factor and lifestyle modification. She can discontinue the clopidogrel and go back on aspirin. (2) Essential (primary) hypertension: Status: Chronic Plan: Patient's blood pressure is well-controlled. We will continue to monitor. We will not make any medication regimen changes. (3) Hyperlipidemia: Status: Chronic Qualifiers: Hyperlipidemia type: unspecified Qualified Code(s): E78.5 - Hyperlipidemia, unspecified Plan: Lipid panel from June 2024 demonstrates a total cholesterol 134 HDL of 53 and LDL of 49. Will continue current medical therapy. (4) Diabetes mellitus: Status: Chronic Qualifiers: Diabetes mellitus type: type 2 Comment: Type II, CONTROLLED WITH MEDS Plan: She cannot afford GLP-1 and thus we did not proceed with PRECEDENTD trial. She was asked discuss SGLT2 inhibitor with PCP barring in mind multiple diabetic medication to help reduce cardiac events. (5) Bilateral lower extremity edema: Status: Acute Plan: This is one of her main concerns today. This is thought to be due to potentially venous insufficiency, weight, activity, or other. She is currently working with a vascular team for compression stockings. She was asked undergo laboratory testing to ensure no CHF component. She was also asked to undergo echocardiogram to ensure that her LV function is stable. Depending on test results, further recommendation be made. Orders: Orders Pro- Brain NATRIURETIC PEPTIDE Today E11.9 - Type 2 diabetes mellitus without complications, E78.5 - Hyperlipidemia, unspecified, I10 - Essential (primary) hypertension, R06.09 - Other forms of dyspnea, R60.0 - Localized edema, Z95.5 - Presence of coronary angioplasty implant and graft Basic Metabolic Profile (BMP) Today E11.9 - Type 2 diabetes mellitus without complications, E78.5 - Hyperlipidemia, unspecified, I10 - Essential (primary) hypertension, R60.0 - Localized edema, Z95.5 - Presence of coronary angioplasty implant and graft Echo Complete Today E11.9 - Type 2 diabetes mellitus without complications, E78.5 - Hyperlipidemia, unspecified, I10 - Essential (primary) hypertension, R06.09 - Other forms of dyspnea, R60.0 - Localized edema, Z95.5 - Presence of coronary angioplasty implant and graft Plan Details Additional Comments: Thank you for allowing us to participate in the patients plan of care, if you have any questions please do not hesitate to call. Plan was reviewed with patient/family member along with red flag symptoms. Understanding was acknowledged. Questions were answered to apparent satisfaction. This note was generated using a voice recognition system and there may be incorrect words, spelling or punctuation that were not noted when reviewing the office note prior to saving. Portions of this documentation were copied and pasted from previous office visitnotes to provide a cohesive continuity of the history. The note has been reviewed, edited, and updated, as necessary. Follow Up: 12-15 Months (CREDIT COLLECTION ASSOCIATE) Coding Level of Care Code Off vis,est,level 4 Diagnoses History of coronary artery stent placement Z95.5 Essential (primary) hypertension I10 Hyperlipidemia, unspecified hyperlipidemia type E78.5 Hyperlipidemia type: unspecified Diabetes mellitus E11.9 Diabetes mellitus type: type 2 Bilateral lower extremity edema R60.0 Coding Level of Care Code Off vis,est,level 4 Diagnoses History of coronary artery stent placement Z95.5 Essential (primary) hypertension I10 Hyperlipidemia, unspecified hyperlipidemia type E78.5 Hyperlipidemia type: unspecified Diabetes mellitus E11.9 Diabetes mellitus type: type 2 Bilateral lower extremity edema R60.0 Clinical Quality Measures Falls Risk Screening/Assistive Devices Have you fallen in the past year?: No Cardiac Ejection fraction %: 65 05/12/25 0936 <Electronically signed by Guerita JONES> Date _ Guerita CROCKETTC Cosigner Signature: Date (if applicable) CC: Dr. Galina Tavarez, DO ~ [facility] Work Phone: Reason for referral (narrative)No reason for referral information availableWParkview Health [facility] Work Phone: Summary Purpose Family History No Family History Records Found Relationship Condition Age at Onset Recorded Date/T enrique mother Diabetes mellitus Unknown Cardiac disease Unknown Advance Directives No Advanced Directives Records Found Advance Directive Response Recorded Date/ Time Advance Directives Yes May 9:18am Living Will Yes October 20, 2021 10:09am Power of Infection Prevention Coordinator Yes October 20 10:09am Advance Directive Response Recorded Date/ Time Name of Medical Power of Infection Prevention Coordinator TERRY HARPER January 26, 2022 12:41pm Advance Directives Yes May 9:18am Living Will Yes January 26, 2022 12:41pm Power of Infection Prevention Coordinator Yes January 26 12:41pm Advance Directive Response Recorded Date/ Time Advance Directives Yes May 8:18am Living Will Yes January 26, 2022 11:41am Power of Infection Prevention Coordinator Yes January 26 11:41am Advance Directive Response Recorded Date/ Time Advance Directives Yes May 9:18am Living Will Yes January 26, 2022 12:41pm Power of Infection Prevention Coordinator Yes January 26 12:41pm Advance Directive Response Recorded Date/ Time Name of Medical Power of Infection Prevention Coordinator October 31, 2022 2:03pm Advance Directives Yes May 9:18am Living Will Yes October 31, 2022 2:03pm Power of Infection Prevention Coordinator Yes October 31 2:03pm Advance Directive Response Recorded Date/ Time Advance Directives Yes May 9:18am Living Will Yes October 31, 2022 2:03pm Power of Infection Prevention Coordinator Yes October 31 2:03pm Advance Directive Response Recorded Date/ Time Advance Directives Yes May 8:18am Living Will Yes October 31, 2022 1:03pm Power of Infection Prevention Coordinator Yes October 31 1:03pm Advance Directive Response Recorded Date/ Time Name of Medical Power of Infection Prevention Coordinator TERRY HARPER October 11, 2023 3:19pm Advance Directives Yes May 9:18am Living Will Yes October 11, 2023 3:19pm Power of Infection Prevention Coordinator Yes October 10 3:19pm Date Activated Date Inactivated Comments 03/16/2021 4:19 PM Advance Directive Response Recorded Date/ Time Living Will No March 14 10:00am Do you have a Healthcare Power of Infection Prevention Coordinator? No March 14, 2024 10:00am Advance Directives Yes May 9:18am Advance Directive Response Recorded Date/ Time Living Will Yes October 31, 2022 2:03pm Do you have a Healthcare Power of Infection Prevention Coordinator? Yes October 31, 2022 2:03pm Living Will No March 14 10:00am Do you have a Healthcare Power of Infection Prevention Coordinator? No March 14, 2024 10:00am Advance Directives Yes May 9:18am Advance Directive Response Recorded Date/ Time Advance Directives Yes May 9:18am Chief Complaint and Reason for Visit Chief Complaint 6 wk FU RUQ PAIN, BILE ACID REFLUX ABDOMINAL PAIN RUQ epigastric pain S/P HIP SURGERY/RX HERE ER FU INT LABS Cyst of kidney, acquired FATTY LIVER ABDOMINAL PAIN, FATTY LIVER, NAUSEA S/P HIP SURGERY/RX HERE Reason for Visit Essential (primary) hypertension History of coronary artery stent placement Hyperlipidemia Abdominal pain Fatty liver GERD (gastroesophageal reflux disease) Nausea Diabetes mellitus History of Velazquez's esophagus Chief Complaint RUQ PAIN, BILE ACID REFLUX ABDOMINAL PAIN RUQ epigastric pain S/P HIP SURGERY/RX HERE ER FU INT LABS Cyst of kidney, acquired FATTY LIVER ABDOMINAL PAIN, FATTY LIVER, NAUSEA S/P HIP SURGERY/RX HERE Reason for Visit Abdominal pain Fatty liver GERD (gastroesophageal reflux disease) Nausea Diabetes mellitus History of Velazquez's esophagus Chief Complaint RUQ PAIN, BILE ACID REFLUX ABDOMINAL PAIN RUQ epigastric pain S/P HIP SURGERY/RX HERE ER FU INT LABS Cyst of kidney, acquired FATTY LIVER ABDOMINAL PAIN, FATTY LIVER, NAUSEA S/P HIP SURGERY/RX HERE EORDER Reason for Visit Abdominal pain Fatty liver GERD (gastroesophageal reflux disease) Nausea Diabetes mellitus History of Velazquez's esophagus Chief Complaint RUQ PAIN, BILE ACID REFLUX ABDOMINAL PAIN RUQ epigastric pain S/P HIP SURGERY/RX HERE ER FU INT LABS Cyst of kidney, acquired FATTY LIVER ABDOMINAL PAIN, FATTY LIVER, NAUSEA S/P HIP SURGERY/RX HERE EORDER 1 MO FU INT LABS Reason for Visit Abdominal pain Fatty liver GERD (gastroesophageal reflux disease) Nausea Diabetes mellitus History of Velazquez's esophagus Abdominal pain Fatty liver GERD (gastroesophageal reflux disease) P-ANCA titer positive Chief Complaint INT LABS 10 MO F/U 2 WK Reason for Visit Encounter for pre-op erative cardiovascular clearance Essential (primary) hypertension History of coronary artery stent placement Hyperlipidemia Diarrhea Fatty liver GERD (gastroesophageal reflux disease) Chief Complaint 3 MO FU SCREENING Annual (PAPERHANGER PIPE) COUGH, DRAINAGE, SORE THROAT E ORDER 6 M FU Reason for Visit Diarrhea Fatty liver GERD (gastroesophageal reflux disease) Atrophic vaginitis Encounter for routine gynecological examination COVID-19 Essential (primary) hypertension History of coronary artery stent placement Hyperlipidemia Chief Complaint 3 MO FU SCREENING Annual (PAPERHANGER PIPE) COUGH, DRAINAGE, SORE THROAT E ORDER 6 M FU 3 M FU INT LABS NAFLD Reason for Visit Diarrhea Fatty liver GERD (gastroesophageal reflux disease) Atrophic vaginitis Encounter for routine gynecological examination COVID-19 Essential (primary) hypertension History of coronary artery stent placement Hyperlipidemia NAFLD (nonalcoholic fatty liver disease) P-ANCA titer positive Diarrhea Chief Complaint Annual (PAPERHANGER PIPE) COUGH, DRAINAGE, SORE THROAT E ORDER 6 M FU 3 M FU INT LABS NAFLD sx like before stents (CREDIT COLLECTION ASSOCIATE pt) Graham PLATA Reason for Visit Atrophic vaginitis Encounter for routine gynecological examination COVID-19 Essential (primary) hypertension History of coronary artery stent placement Hyperlipidemia NAFLD (nonalcoholic fatty liver disease) P-ANCA titer positive Diarrhea Dyspnea on exertion Essential (primary) hypertension History of coronary artery stent placement Hyperlipidemia Chief Complaint COUGH, DRAINAGE, SOR E THROAT E ORDER 6 M FU 3 M FU INT LABS NAFLD sx like before stents (CREDIT COLLECTION ASSOCIATE pt) Graham PLATA DYSPNEA/SOB DYSPNEA/SOB Amb Documentation Reason for Visit COVID-19 Essential (primary) hypertension History of coronary artery stent placement Hyperlipidemia NAFLD (nonalcoholic fatty liver disease) P-ANCA titer positive Diarrhea Dyspnea on exertion Essential (primary) hypertension History of coronary artery stent placement Hyperlipidemia Chief Complaint COUGH, DRAINAGE, SOR E THROAT E ORDER 6 M FU 3 M FU INT LABS NAFLD sx like before stents (CREDIT COLLECTION ASSOCIATE pt) Graham PLATA DYSPNEA/SOB DYSPNEA/SOB Amb Documentation ORDERS FOR MALYS AND ROOF Reason for Visit COVID-19 Essential (primary) hypertension History of coronary artery stent placement Hyperlipidemia NAFLD (nonalcoholic fatty liver disease) P-ANCA titer positive Diarrhea Dyspnea on exertion Essential (primary) hypertension History of coronary artery stent placement Hyperlipidemia Chief Complaint 6 M FU 3 M FU INT LABS NAFLD sx like before stents (CREDIT COLLECTION ASSOCIATE pt) Graham EORDERS DYSPNEA/SOB DYSPNEA/SOB Amb Documentation ORDERS FOR MALYS AND ROOF 4-8 WK F/U Reason for Visit Essential (primary) hypertension History of coronary artery stent placement Hyperlipidemia NAFLD (nonalcoholic fatty liver disease) P-ANCA titer positive Diarrhea Dyspnea on exertion Essential (primary) hypertension History of coronary artery stent placement Hyperlipidemia Dyspnea on exertion Essential (primary) hypertension History of coronary artery stent placement Hyperlipidemia Chief Complaint sx like before stent s (CREDIT COLLECTION ASSOCIATE pt) Graham EORDERS DYSPNEA/SOB DYSPNEA/SOB Amb Documentation ORDERS FOR MALYS AND ROOF 4-8 WK F/U 2 wk f/u LEFT SIDE NECK/SHOULDER DISCOMFORT Reason for Visit Dyspnea on exertion Essential (primary) hypertension History of coronary artery stent placement Hyperlipidemia Dyspnea on exertion Essential (primary) hypertension History of coronary artery stent placement Hyperlipidemia Retained food in stomach Neck strain Chief Complaint DYSPNEA/SOB DYSPNEA/SOB Amb Documentation ORDERS FOR MALYS AND ROOF 4-8 WK F/U 2 wk f/u LEFT SIDE NECK/SHOULDER DISCOMFORT E ORDER FROM GUERITA MENDEZ Reason for Visit Dyspnea on exertion Essential (primary) hypertension History of coronary artery stent placement Hyperlipidemia Retained food in stomach Neck strain Chief Complaint 2 wk f/u LEFT SIDE NECK/SHOULDER DISCOMFORT E ORDER FROM GUERITA MENDEZ 6 M FU FATTY LIVER Reason for Visit Retained food in sto mach Neck strain Essential (primary) hypertension History of coronary artery stent placement Hyperlipidemia Chief Complaint FATTY LIVER 6 MO FU SCREENING Reason for Visit NAFLD (nonalcoholic fatty liver disease) P-ANCA titer positive Diarrhea Chief Complaint 6 MO FU SCREENING EORDER Reason for Visit NAFLD (nonalcoholic fatty liver disease) P-ANCA titer positive Diarrhea Chief Complaint EORDER 1 Y FU MOVED FROM CREDIT COLLECTION ASSOCIATE Reason for Visit Dyspnea on exertion Essential (primary) hypertension History of coronary artery stent placement Hyperlipidemia Chief Complaint EORDER 1 Y FU MOVED FROM CREDIT COLLECTION ASSOCIATE DYSPNEA Reason for Visit Dyspnea on exertion Essential (primary) hypertension History of coronary artery stent placement Hyperlipidemia Chief Complaint EORDER 1 Y FU MOVED FROM CREDIT COLLECTION ASSOCIATE DYSPNEA SOB CAD SOB CAD Reason for Visit Dyspnea on exertion Essential (primary) hypertension History of coronary artery stent placement Hyperlipidemia Chief Complaint EORDER 1 Y FU MOVED FROM CREDIT COLLECTION ASSOCIATE DYSPNEA SOB CAD SOB CAD 6 MO FU INT LABS INT LABSPEC Reason for Visit Dyspnea on exertion Essential (primary) hypertension History of coronary artery stent placement Hyperlipidemia Dyspnea on exertion NAFLD (nonalcoholic fatty liver disease) P-ANCA titer positive Diarrhea Chief Complaint 1 Y FU MOVED FROM O DYSPNEA SOB CAD SOB CAD 6 MO FU INT LABS INT LABSPEC BLOATING Reason for Visit Dyspnea on exertion Essential (primary) hypertension History of coronary artery stent placement Hyperlipidemia Dyspnea on exertion NAFLD (nonalcoholic fatty liver disease) P-ANCA titer positive Diarrhea Chief Complaint Admit Date LUMBAR SPINE September 08, 2024 3:40pm 6 M FU November 06, 2024 10: 00am Reason for Visit Admit Date Dyspnea on exertion November 06, 2024 10: 00am NAFLD (nonalcoholic fatty liver disease) November 06, 2024 10:00am P-ANCA titer positive November 06, 2024 1 0:00am Diarrhea November 06, 2024 10: 00am Chief Complaint Admit Date LUMBAR SPINE September 08, 2024 3:40pm 6 M FU November 06, 2024 10: 00am 1 Y FU November 13, 2024 10: 07am Reason for Visit Admit Date Dyspnea on exertion November 06, 2024 10: 00am NAFLD (nonalcoholic fatty liver disease) November 06, 2024 10:00am P-ANCA titer positive November 06, 2024 1 0:00am Diarrhea November 06, 2024 10: 00am Diabetes mellitus November 13, 2024 10: 07am Essential (primary) hypertension October 282024 10:07am History of coronary artery stent placeme nt November 13, 2024 10:07am Hyperlipidemia November 13, 2024 10: 07am Chief Complaint Admit Date RESULTS NEED FAXED TO: [phone] Aug 2024 9:59am Chief Complaint Admit Date RESULTS [facility] FAXED [facility]: [phone] [facility] 9:59am BILAT LEG PAIN March 27, 2025 8: 59am Chief Complaint Admit Date RESULTS NEED FAXED TO: [phone] [facility] 2024 9:59am BILAT LEG PAIN March 27, 2025 8: 59am Bilateral Lower Extremity Edema May 06, 2025 9:56am Chief Complaint Admit Date RESULTS NEED FAXED TO: [phone] 2024 9:59am BILAT LEG PAIN March 27, 2025 8: 59am Bilateral Lower Extremity Edema May 06, 2025 9:56am 6 M FU May 12, 2025 8 :55am Reason for Visit Admit Date Bilateral lower extremity edema May 06, 2025 9:56am Lymphedema May 06, 2025 9: 56am Venous insufficiency May 06, 2025 9 :56am Bilateral lower extremity edema May 12, 2025 8:55am Diabetes mellitus May 12, 2025 8 :55am Essential (primary) hypertension May 12, 2025 8:55am History of coronary artery stent placeme nt May 12, 2025 8:55am Hyperlipidemia May 12, 2025 8 :55am Additional Source Comments INFORMATION SOURCE (unrecogn ized section and content) DATE CREATED AUTHOR 11/14/[address] [facility] ([place]) DATE CREATED AUTHOR AUTHOR'S ORGANIZ ATION 10/16/2021 [facility] DATE CREATED AUTHOR AUTHOR'S ORGANIZ ATION 06/29/2024 [facility] DATE CREATED AUTHOR AUTHOR'S ORGANIZ ATION 06/05/2025 [facility] Goals (unrecognized section and content) Goals may be documented in a n alternate sectionGoals may be documented in an alternate sectionGoals may be documented in an alternate sectionGoals may be documented in an alternate sectionGoals may be documented in an alternate sectionGoals may be documented in an alternate sectionGoals may be documented in an alternate sectionGoals may be documented in an alternate sectionGoals may be documented in an alternate sectionGoals may be documented in an alternate sectionGoals may be documented in an alternate sectionGoals may be documented in an alternate sectionGoals may be documented in an alternate sectionGoals may be documented in an alternate sectionGoals may be documented in an alternate sectionGoals may be documented in an alternate sectionGoals may be documented in an alternate section No data available for this sectionGoals may be documented in an alternate sectionGoals may be documented in an alternate sectionGoals may be documented in an alternate sectionGoals may be documented in an alternate sectionGoals may be documented in an alternate sectionGoals may be documented in an alternate section Care Teams (unrecognized sec tion and content) Team Status: Active Member Role Status Dates Dr. Galina Tavarez DO Family Provider Active Dr. Galina aTvarez , DO Primary Care Provider Active Team Status: Inactive Member Role Status Dates Dr. Galina Tavarez DO Primary Care Provider, Referring P rovider Active uGerita Mendez 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, 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-C Attending Provider Active Team Status: Inactive Member Role Status Dates Dr. Galina Tavarez DO Primary Care Provider, Referring P rovider Active Dr. Bakari Matthews , DO Attending Provider Active Team Status: Inactive Member Role Status Dates Dr. Galina Tavarez DO Primary Care Provider, Referring P rovider Active Devorah Montejo 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, 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-C Attending Provider Active Team Status: Inactive Member Role Status Dates Dr. Galina Tavarez DO Primary Care Provider, Referring P rovider Active Martha Stewart 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, 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-C Attending Provider Active Team Status: Inactive Member Role Status Dates Dr. Galina Tavarez DO Primary Care Provider, Referring P rovider Active Joseluis Hartley PA, PA Attending Provider Active Team Status: Inactive Member Role Status Dates Dr. Galina Tavarez DO Primary Care Provider Active Martha Stewart 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, 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-C Attending Provider Active Team Status: Inactive Member Role Status Dates Dr. Galina Tavarez DO Primary Care Provider Active Guerita Mendez 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, 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-C Attending Provider, Referring Pro vider Active Team Status: Inactive Member Role Status Dates Dr. Galina Tavarez DO Primary Care Provide r, Attending Provider, Referring Provider Active Devorah Montejo 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, 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-C Other Provider Active Team Status: Active Member Role Status Dates Dr. Galina Tavarez DO Primary Care Provider Active Devorah Montejo 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, 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-C Attending Provider, Referrin g Provider Active Team Status: Inactive Member Role Status Dates Dr. Galina Tavarez DO Primary Care Provider Active Devorahashly Montejo 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, 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-C Attending Provider, Referrin g Provider Active Team Status: Inactive Member Role Status Dates Dr. Galina Tavarez DO Primary Care Provider Active Guerita Mendez 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, 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-C Attending Provider Active Team Status: Active Member Role Status Dates Dr. Galina Tavarez DO Primary Care Provider Active Guerita Mendez 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, 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-C Other Provider Active Dr. Sekou Hebert MD Attending Provider Active Team Status: Active Member Role Status Dates Dr. Galina Malys , DO Primary Care Provider Active Guerita Mendez 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, 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-C Attending Provider Active Team Status: Inactive Member Role Status Dates Dr. Galina Tavarez DO Primary Care Provide r, Attending Provider, Referring Provider Active Guerita Mendez 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, 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-C Other Provider Active Team Status: Active Member Role Status Dates Dr. Galina Tavarez DO Primary Care Provider Active Guerita eMndez 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, 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-C Other Provider Active Dr. Sekou Hebert MD Attending Provider, Referring Pro vider Active Team Status: Active Member Role Status Dates Dr. Galina Tavarez DO Primary Care Provider, Referring P rovider Active Dr. Bakari Matthews , DO Attending Provider, Other Prov ider Active Team Status: Inactive Member Role Status Dates Dr. Galina Tavarez DO Primary Care Provide r, Attending Provider, Referring Provider Active Team Status: Inactive Member Role Status Dates Dr. Galina Tavarez DO Primary Care Provider Active Dr. Bakari Matthews , DO Attending Provider, Referring Provider Active Team Status: Active Member Role Status Dates Dr. Galina Tavarez DO Primary Care Provider Active Dr. Surjit Good MD Attending Provider, Referring Provi margoth Active Team Status: Inactive Member Role Status Dates Dr. Galina Tavarez DO Primary Care Provider Active Dr. Surjit Good MD Attending Provider, Referring Provi margoth Active Team Status: Inactive Member Role Status Dates Dr. Galina Tavarez DO Primary Care Provider, Referring P rovider Active Dr. Sekou Hebert MD Active Guerita Mendez 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, 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-C Attending Provider Active Team Status: Active Member Role Status Dates Dr. Galina Tavarez DO Primary Care Provide r, Attending Provider, Referring Provider Active Team Status: Active Member Role Status Dates Dr. Galina Tavarez DO Primary Care Provider Active Guerita Mendez 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, 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-C Referring Provider, Other Provide r Active Dr. Sekou Hebert MD Attending Provider Active Team Status: Active Member Role Status Dates Dr. Galina Tavarez DO Primary Care Provider Active Dr. 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 Galina Tavarez DO Primary Care Provider Active Start: July 18, 2024 End: July 18, 2024 Dr. Galina Tavarez DO Attending Provider Active St art: July 18, 2024 End: July 18, 2024 Dr. Galina Tavarez DO Referring Provider Active St art: July 18, 2024 End: July 18, 2024 Team Status: Inactive Member Role Status Dates Dr. Galina Tavarez DO Primary Care Provider Active Start: September 08, 2024 End: September 08, 2024 Dr. Robbi Ang MD Attending Provider Active Start: September 08, 2024 End: September 08, 2024 Dr. Robbi Ang MD Referring Provider Active Start: September 08, 2024 End: September 08, 2024 Team Status: Inactive Member Role Status Dates Dr. Galina Tavarez DO Primary Care Provider Active Start: November 06, 2024 End: November 06, 2024 Dr. Galina Tavarez DO Referring Provider Active St art: November 06, 2024 End: November 06, 2024 Dr. Bakari Matthews DO Attending Provider Active Start: November 06, 2024 End: November 06, 2024 Team Status: Inactive Member Role Status Dates Dr. Galina Tavarez DO Primary Care Provider Active Start: November 06, 2024 End: November 06, 2024 Dr. Surjit Good MD Attending Provider Active Sta rt: November 06, 2024 End: November 06, 2024 Dr. Surjit Good MD Referring Provider Active Sta rt: November 06, 2024 End: November 06, 2024 Team Status: Active Member Role Status Dates Dr. Galina Tavarez DO Primary Care Provider Active Team Status: Inactive Member Role Status Dates Dr. Galina Tavarez DO Primary Care Provider Active Start: November 13, 2024 End: November 13, 2024 Dr. Galina Tavarez DO Referring Provider Active St art: November 13, 2024 End: November 13, 2024 Dr. Sekou Hebert MD Attending Provider Active S tart: November 13, 2024 End: November 13, 2024 Team Status: Inactive Member Role Status Dates Dr. Galina Tavarez DO Primary Care Provider Active Start: November 13, 2024 End: November 13, 2024 Dr. Sekou Hebert MD Attending Provider Active S tart: November 13, 2024 End: November 13, 2024 Dr. Sekou Hebert MD Referring Provider Active S tart: November 13, 2024 End: November 13, 2024 Team Status: Active Member Role/Relationship Status Dates Dr. Galina Tavarez DO Primary Care Provider Active Team Status: Inactive Member Role/Relationship Status Dates Dr. Galina Tavarez DO Primary Care Provider Active Start: January 27, 2025 Dr. Melissa Hong MD Attending Provider Active Start: January 27, 2025 Team Status: Inactive Member Role/Relationship Status Dates Dr. Galina Tavarez DO Primary Care Provider Active Start: March 12, 2025 End: March 12, 2025 Dr. uSrjit Good MD Attending Provider Active Sta rt: March 12, 2025 End: March 12, 2025 Dr. Surjit Good MD Referring Provider Active Sta rt: March 12, 2025 End: March 12, 2025 Team Status: Inactive Member Role/Relationship Status Dates Dr. Galina Tavarez DO Primary Care Provider Active Start: March 27, 2025 End: March 27, 2025 Dr. Galina Tavarez DO Attending Provider Active St art: March 27, 2025 End: March 27, 2025 Dr. Galina Tavarez DO Referring Provider Active St art: March 27, 2025 End: March 27, 2025 Team Status: Active Member Role/Relationship Status Dates Dr. Galina Tavarez DO Primary Care Provider Active Start: March 27, 2025 Dr. Ernie Parkre MD Attending Provider Active S tart: March 27, 2025 Team Status: Active Member Role/Relationship Status Dates Dr. Galina Tavarez DO Primary care physician Active Team Status: Inactive Member Role/Relationship Status Dates Dr. Galina Tavarez DO Primary care physician Active Start: January 27, 2025 Dr. Melissa Hong MD Attending physician Active Start: January 27, 2025 Team Status: Inactive Member Role/Relationship Status Dates Dr. Galina Tavarez DO Primary care physician Active Start: March 12, 2025 End: March 12, 2025 Dr. Surjit Good MD Attending physician Active St art: March 12, 2025 End: March 12, 2025 Dr. Surjit Good MD Referring Provider Active Sta rt: March 12, 2025 End: March 12, 2025 Team Status: Inactive Member Role/Relationship Status Dates Dr. Galina Tavarez DO Primary care physician Active Start: March 27, 2025 End: March 27, 2025 Dr. Galina Tavarez DO Attending physician Active S tart: March 27, 2025 End: March 27, 2025 Dr. Galina Tavarez DO Referring Provider Active St art: March 27, 2025 End: March 27, 2025 Team Status: Active Member Role/Relationship Status Dates Dr. Galina Tavarez DO Primary care physician Active Start: March 27, 2025 Dr. Galina Tavarez DO Referring Provider Active St art: March 27, 2025 Dr. Ernie Parker MD Attending physician Active Start: March 27, 2025 Team Status: Inactive Member Role/Relationship Status Dates Dr. Galina Tavarez DO Primary care physician Active Start: May 06, 2025 End: May 06, 2025 Dr. Galina Tvaarez DO Referring Provider Active St art: May 06, 2025 End: May 06, 2025 JOAQUIN Gonzáles Attending physician Active Sta rt: May 06, 2025 End: May 06, 2025 Team Status: Inactive Member Role/Relationship Status Dates Dr. Galina Tavarez DO Primary care physician Active Start: May 12, 2025 End: May 12, 2025 Dr. Galina Tavarez , Referring Provider Active St art: May 12, 2025 End: May 12, 2025 Guerita Mendez NP, NP-C Attending physician Active Start: May 12, 2025 End: May 12, 2025 Team Status: Active Member Role/Relationship Status Dates Dr. Galina Tavarez DO Primary care physician Active Start: May 12, 2025 ROBERT Rivas NP Attending physician Active Start: May 12, 2025 Guerita Mendez NP, NP-Emily Referring Provider Active S tart: May 12, 2025 Source Comments (unrecognize d section and content) In the event this informatio n is protected by the Federal Confidentiality of Alcohol and Drug Abuse Patient Records regulations: The Federal rules restrict any use of the information to criminally investigate or prosecute any alcohol or drug abuse patient.[facility] Reason for Visit (unrecogniz ed section and content) Reason Comments Radio Gen RMP FOR RECORDS PERTAINING TO PATIENTS WHO ARE [...] BE BASED ON THE PRIMARY CLINICAL RECORDS. [facility] [employer] [facility]. provides no warranty or guarantee of the accuracy or completeness of information in this document.
== END | disposition home or self-care (01) ==
LOC: US 07:14
PROVIDERS: PCP Family Medicine; Referring Provider Internal Medicine Gastroenterology; Visit Provider Internal Medicine Gastroenterology
DX: K76.0 Fatty (change of) liver, not elsewhere classified (principal)
CPT/HCPCS: 76705; 76981

== ENCOUNTER → 2025-07-10 | Outpatient (CLI) | payer MEDICARE, OTHER, SELFPAY ==
[2025-07-10 12:18] LABS: Hematocrit 37.0 % (37-47); Hemoglobin 12.2 g/dL (12.0-15.0); Immature Granulocytes Count 0.030 X10^3/uL (0.0-0.0); Mean Corp Hgb Conc 33.0 g/dL (32-36); Mean Corpuscular Volume 95.6 fL (81-99); Mean Platelet Vol. 10.6 fl (6.2-12.0); NRBC Flagged by Analyzer 0 % (0-5); Platelet Count 275 K/mm3 (150-450); RBC Distribution Width CV 13.1 % (11.6-14.6); RBC Distribution Width SD 46.4 fl (35.1-43.9); Red Blood Count 3.87 M/mm3 (4.2-5.4); White Blood Count 5.7 K/mm3 (4.4-11.0)
[2025-07-10 12:44] LABS: AST(SGOT) 38 U/L (<=31); Alanine Aminotransfer ALT/SGPT 28 U/L (<=34); Albumin, Serum 4.3 g/dL (3.4-4.8); Alkaline Phosphatase 40 U/L (35-104); Bilirubin, Direct 0.16 mg/dL (0.00-0.30); CRP < 3.00 mg/L (0.0-3.0); Globulin 2.3 g/dL (2.2-4.2)
[2025-07-13 15:08] LABS: Cytoplasmic Ab (C-ANCA) <1:20 titer (Neg:<1:20); Perinuclear Ab (P-ANCA) <1:20 titer (Neg:<1:20)
== END | disposition home or self-care (01) ==
PROVIDERS: PCP Family Medicine; Referring Provider Internal Medicine Rheumatology; Visit Provider Internal Medicine Rheumatology
DX: R79.82 Elevated C-reactive protein (CRP) (principal); R76.89 Other specified abnormal immunological findings in serum; D72.829 Elevated white blood cell count, unspecified; Z79.899 Other long term (current) drug therapy
CPT/HCPCS: 36415; 80076; 85025; 85652; 86037; 86140